=== PATIENT | female | born 1950 | race Caucasian/White ===

== ENCOUNTER → 2016-07-23 | Outpatient (CLI) | payer MEDICARE, OTHER ==
--- NOTE | 2016-07-27 15:24 | CR ---
EXAM DATE: 07/23/16 PATIENT'S AGE: 66 Patient: CLARICE ISAACS Facility: [facility] Site . Site : 1950 Study: XRay-Chest [id number]/2/2017 5:21:57 PM Ordering Physician: Yanique Phillips Final Report: HISTORY: Acute bronchitis. Comparison: 07/14/2016. Technique: Chest, 2 views. Findings: Right IJ Port-A-Cath, with its tip in the proximal SVC. Median sternotomy changes. No change when compared with previous. Heart size and pulmonary vasculature stable. The lungs are clear. There is no pneumothorax. Lateral/ posterior costophrenic sulci are sharp. Impression: There is no acute airspace disease. Dictated by Enrique Bernard MD @ Jul 26 2016 8:01PM Signed by: Enrique Bernard MD @07/26/2016 8:03:05 PM (Electronic Signature) Report Signed by Proxy and Original Signed Document filed in the Medical Record. MTDD
== END ==
LOC: MW.CHIM 16:16
PROVIDERS: ATTEND Internal Medicine
DX: J20.9 Acute bronchitis, unspecified (principal); R68.89 Other general symptoms and signs
CPT/HCPCS: 36415; 71020; 80053; 85025; 87081; 87804; 87880; G0463

== ENCOUNTER → 2016-09-09 | Outpatient (CLI) | payer MEDICARE, OTHER ==
--- NOTE | 2016-09-09 16:18 | CR ---
EXAMINATION: Two-view chest (PA and Lateral views). HISTORY: Acute sinusitis. FINDINGS: The trachea is midline. The cardiomediastinal silhouette is within normal limits. No pulmonary infil trates, effusions or pneumothorax. Median sternotomy wires are noted. There is a right-sided Infuse- a-Port with tip in good position. Coronary stent noted. Osseous structures appear osteopenic. Mild wedge deformity is noted within the upper thoracic spine and the second is noted near the thoracolumbar junction. IMPRESSION: No acute cardiopulmonary process.
--- NOTE | 2016-09-10 09:28 | CR ---
EXAMINATION: Sinuses HISTORY: Acute sinusitis COMPARISON: CT dated 05/31/2016 TECHNIQUE: Burden' view FINDINGS/IMPRESSION: The maxillary and frontal sinuses are grossly patent without air-fluid levels. The nasal septum is midline. No bony destruction.
== END ==
LOC: MW.CHIM 14:00
PROVIDERS: ATTEND Internal Medicine
DX: J01.90 Acute sinusitis, unspecified (principal); J20.9 Acute bronchitis, unspecified; E11.9 Type 2 diabetes mellitus without complications
CPT/HCPCS: 36415; 70210; 70210-26; 71020; 71020-26; 80053; 81001; 83540; 85025

== ENCOUNTER → 2016-09-11 | Outpatient (CLI) | payer MEDICARE, OTHER ==
--- NOTE | 2016-09-14 09:29 | CR ---
EXAM DATE: 09/11/16 PATIENT'S AGE: 66 Patient: CLARICE ISAACS Facility: [place], [place] Site . Site : 1950 Study: XRay Spine Cervical [id number]/21/2017 4:56:30 PM Ordering Physician: Yanique Phillips Final Report: CLINICAL INDICATION: Pain since fall June 09. Findings: There is slight narrowing of the C3-4 and C4-5 intervertebral disc spaces. There are small multilevel marginal osteophytes. The craniocervical and cervicothoracic junctions are normally aligned. No fracture or dislocation is identified. There is bilateral carotid calcification that is especially abundant on the left. There has been a previous sternotomy. There is a Port-A- Cath on the right. Impression: 1. Overall mild degenerative change. 2. Negative for fracture or dislocation. 3. Carotid calcification bilaterally that is prominent on the left. Dictated by Macho Villatoro MD @ Sep 13 2016 10:06AM (Electronic Signature) Report Signed by Proxy and Original Signed Document filed in the Medical Record. [facility]
== END ==
LOC: MW.CHIM 10:40
PROVIDERS: ATTEND Internal Medicine
DX: R10.9 Unspecified abdominal pain (principal); R68.89 Other general symptoms and signs; J32.9 Chronic sinusitis, unspecified; R51 Headache; F41.9 Anxiety disorder, unspecified; R55 Syncope and collapse
CPT/HCPCS: 36415; 72040; 72040-26; 82150; 99214

== ENCOUNTER → 2016-09-15 | Outpatient (CLI) | payer MEDICARE, OTHER | END | disposition home or self-care (01) | LOC: MW.CHIM 08:30 | PROVIDERS: ATTEND Internal Medicine | DX: R55 Syncope and collapse (principal) | CPT/HCPCS: 99214 ==

== ENCOUNTER → 2016-09-16 | Outpatient (CLI) | payer MEDICARE, OTHER ==
--- NOTE | 2016-09-16 16:18 | US ---
EXAM DATE: 09/16/16 PATIENT'S AGE: 66 Patient: CLARICE ISAACS Facility: [place], [place] Site . Site : 1950 Study: US Abdomen [id number]/26/2017 9:41:51 AM Ordering Physician: Yanique Phillips Final Report: INDICATION: Vomiting and abdominal pain TECHNIQUE: Ultrasound abdomen limited. Sonographic images of the right upper quadrant were obtained using rausch-scale and color Doppler images. COMPARISON: And 9 FINDINGS: Liver: Normal in size and echotexture. No masses. No intrahepatic biliary dilatation. Gallbladder: History of cholecystectomy. Common bile duct: 4.0 mm. Pancreas: Normal. Distal body and tail are not visualized. Right kidney: 9.8 cm. Normal echotexture and cortex. No masses, stones, or hydronephrosis. Vasculature: The visualized IMPRESSION: History of cholecystectomy. Sonographically normal right upper quadrant. Dictated by Abel Gann MD @ Sep 16 2016 10:11AM (Electronic Signature) Report Signed by Proxy and Original Signed Document filed in the Medical Record. PATRICK
== END ==
LOC: MW.US 09:10
PROVIDERS: ATTEND Internal Medicine
DX: R10.9 Unspecified abdominal pain (principal); R68.89 Other general symptoms and signs; Z90.49 Acquired absence of other specified parts of digestive tract
CPT/HCPCS: 76705; 76705-26

== ENCOUNTER 2016-09-23 06:58 | Emergency (ER) | payer MEDICARE, OTHER ==
[2016-09-23] MEDS ORDERED: Ondansetron 4 MG/2 ML SDV IVPUSH ONE (07:00)
[2016-09-23] MEDS ORDERED: Sodium Chloride 0.9% 1,000 ML IV ONE (07:00)
--- NOTE | 2016-09-23 07:20 | EDM.PDOC ---
ED HPI GI/ABDOMINAL - General Chief Complaint: Gastrointestinal Problem Stated Complaint: NAUSA AND VOMITING Time Seen by Provider: 09/23/16 07:10 Source of Information: Reports: Patient History Limitations: Reports: No limitations - History of Present Illness INITIAL COMMENTS - FREE TEXT/NARRATIVE: HISTORY AND PHYSICAL: History of present illness: [66-year-old female hypertension high cholesterol and he is coronary artery disease with 3 vessel CABG, vertigo migraines and depression, now presents to the emergency department complaining of nausea and vomiting times several days. She states that since hitting her head years ago she's had chronic intermittent nausea and vomiting as well as vertigo. No recent injury. The nature of this episode is typical per patient something she's been experiencing for years. Patient describes persistent vomiting over the last 3 days. Sometimes crampy abdominal pain but not currently. No bloody diarrhea or blood in vomit. Patient states she's been unable to keep down liquids or food.] She feels she's also having some symptoms of vertigo as her dizziness is worse when she moves her head patient describes she has been treated for vertigo previously and at different times she's been on meclizine Review of systems: As per history of present illness and below otherwise all systems reviewed and negative. Past medical history: As per history of present illness and as reviewed below otherwise noncontributory. Surgical history: As per history of present illness and as reviewed below otherwise noncontributory. Social history: No reported history of drug or alcohol abuse. Family history: As per history of present illness and as reviewed below otherwise noncontributory. Physical exam: Mildly anxious, morbidly obese, chronically weak appearing patient no acute distress and no diaphoresis on exam. Alert and communicative nonfocal neuro exam. Nontender abdomen and pelvis HEENT: Atraumatic, normocephalic, pupils reactive, negative for conjunctival pallor or scleral icterus, mucous membranes moist, throat clear, neck supple, nontender, trachea midline. Lungs: Clear to auscultation, breath sounds equal bilaterally, chest nontender. Heart: S1S2, regular, negative for clicks, rubs, or JVD. Abdomen: Soft, nondistended, nontender. Negative for masses or hepatosplenomegaly. Negative for costovertebral tenderness. Pelvis: Stable nontender. Genitourinary: Deferred. Rectal: Deferred. Extremities: Atraumatic, negative for cords or calf pain. Neurovascular unremarkable. Neuro: Awake, alert, oriented. Cranial nerves II through XII unremarkable. Cerebellum unremarkable. Motor and sensory unremarkable throughout. Exam nonfocal. Diagnostics: [EKG with normal sinus rhythm at 87, normal axis] inferior Q waves with repolarization abnormality no STEMI, no sig change prior study Chest x-ray with right-sided port chronic changes no acute disease interpreted by me Therapeutics: [Zofran IV fluids and meclizine administered. Will give dose of IV Ativan to assist with obvious contributory anxiety component] Impression: [] Plan: [Antiemetic,anxiolytic, and IV fluids initiated. Full workup pending. Vital signs stable] Or treatment patient feels dramatically improved. Vital signs stable and unremarkable. She remains nonfocal neurologically. Her nausea has resolved and dizziness improved. Will prescribe Zofran and meclizine as patient had previously and No further workup or treatment indicated. Patient agrees with outpatient followup and strict return precautions given Definitive disposition and diagnosis as appropriate pending reevaluation and review of above. - Related Data Allergies/ADRs: Allergies Allergy/AdvReac Type Severity Reaction Status Date / Time Penicillins Allergy Severe Cannot Verified 09/23/16 07:05 Remember Home Meds: Home Meds Aspirin 81 mg PO BRK 04/02/15 [History] Carvedilol [Coreg] 3.25 mg PO BID 04/02/15 [History] Furosemide [Lasix] 40 mg PO DAILY 04/02/15 [History] Gemfibrozil [Lopid] 600 mg PO BIDAC 04/02/15 [History] Nitroglycerin [Nitrostat] 1 tab PO ASDIRECTED PRN 04/02/15 [History] Ranolazine [Ranexa] 500 mg PO BID 04/02/15 [History] atorvaSTATin [Lipitor] 80 mg PO BEDTIME 04/02/15 [History] Nortriptyline 25 mg PO BEDTIME 04/28/15 [History] Insulin Glarg,Human.Rec.Analog [Lantus Solostar] 55 units SUBCUT BEDTIME [History] PARoxetine [Paxil] 20 mg PO DAILY 05/31/16 [History] Glimepiride [Amaryl] 2 mg PO DAILY 09/23/16 [History] Liraglutide [Victoza] 1.2 mg SQ BEDTIME 09/23/16 [History] Meclizine [Antivert] 25 mg PO Q6H PRN #24 tablet 09/23/16 [Rx] Ondansetron [Zofran ODT] 4 mg SL Q4H PRN #16 tab.dis 09/23/16 [Rx] Past Medical History Other Cardiovascular History: 'partial heart' Oncologic (Cancer) History: Reports: Lymphoma - Infectious Disease History Infectious Disease History: Reports: Chicken pox, Measles, Mumps - Past Surgical History Other Cardiovascular Surgeries/Procedures: 3 bypasses, 10 stents Social & Family History - Family History Family Medical History: Noncontributory - Tobacco Use Smoking Status *Q: Never Smoker Second Hand Smoke Exposure: No - Caffeine Use Caffeine Use: Reports: None - Recreational Drug Use Recreational Drug Use: No ED ROS GENERAL - Review of Systems Review Of Systems: See Below (Per history of present illness) ED EXAM, GI/ABD - Physical Exam Exam: See Below (Per history of present illness) Course - Vital Signs Last Recorded V/S: Last Vital Signs Temp 36.4 C 09/23/16 09:05 Pulse 94 09/23/16 10:15 Resp 16 09/23/16 10:15 BP 126/63 09/23/16 10:15 Pulse Ox 95 09/23/16 10:15 - Orders/Labs/Meds Orders: Active Orders 24 hr Category Date Time Status EKG Documentation Completion [RC] STAT Care 09/23/16 07:07 Active Chest 1V Frontal [CR] Stat Exams 09/23/16 07:12 Taken Labs: Laboratory Tests 09/23/16 09/23/16 09/23/16 Range/Units 07:14 07:14 07:14 WBC 7.56 (4.0-11.0) K/uL RBC 4.87 (4.30-5.90) M/uL Hgb 15.1 (12.0-16.0) g/dL Hct 42.4 (36.0-46.0) % MCV 87.1 (80.0-98.0) fL MCH 31.0 (27.0-32.0) pg MCHC 35.6 (31.0-37.0) g/dL RDW Std Deviation 45.4 (28.0-62.0) fl RDW Coeff of Aranza 14 (11.0-15.0) % Plt Count 256 (150-400) K/uL MPV 10.30 (7.40-12.00) fL Neut % (Auto) 59.8 (48.0-80.0) % Lymph % (Auto) 30.2 (16.0-40.0) % Castro % (Auto) 8.5 (0.0-15.0) % Eos % (Auto) 0.7 (0.0-7.0) % Baso % (Auto) 0.8 (0.0-1.5) % Neut # (Auto) 4.5 (1.4-5.7) K/uL Lymph # (Auto) 2.3 (0.6-2.4) K/uL Castro # (Auto) 0.6 (0.0-0.8) K/uL Eos # (Auto) 0.1 (0.0-0.7) K/uL Baso # (Auto) 0.1 (0.0-0.1) K/uL Nucleated RBC % 0.0 /100WBC Nucleated RBCs # 0 K/uL Sodium 139 (136-146) mmol/L Potassium 3.9 (3.5-5.1) mmol/L Chloride 105 (98-110) mmol/L Carbon Dioxide 19 L (21-31) mmol/L BUN 15 (6.0-23.0) mg/dL Creatinine 0.9 (0.6-1.5) mg/dL Est Cr Clr Drug Dosing 61.41 mL/min Estimated GFR (MDRD) > 60.0 ml/min Glucose 126 H (60-110) mg/dL Calcium 9.6 (8.8-10.8) mg/dL Total Bilirubin 0.9 (0.1-1.5) mg/dL AST 18 (5-40) IU/L ALT 12 (8-54) IU/L Alkaline Phosphatase 99 (40-150) Troponin I < 0.10 (0.0-0.29) NG/ML Total Protein 6.5 (6.0-8.0) g/dL Albumin 3.4 (3.4-4.8) g/dL Globulin 3.1 (2.0-3.5) g/dL Albumin/Globulin Ratio 1.1 L (1.3-2.8) Lipase (7-80) U/L Urine Color Urine Appearance Urine pH (5.0-8.0) Ur Specific [place] (1.001-1.035) Urine Protein (NEGATIVE) mg/dL Urine Glucose (UA) (NEGATIVE) mg/dL Urine Ketones (NEGATIVE) mg/dL Urine Occult Blood (NEGATIVE) Urine Nitrite (NEGATIVE) Urine Bilirubin (NEGATIVE) Urine Urobilinogen (<2.0) EU/dL Ur Leukocyte Esterase (NEGATIVE) Urine RBC (0-2/HPF) Urine WBC (0-5/HPF) Ur Epithelial Cells (NONE-FEW) Amorphous Sediment (NEGATIVE) Urine Bacteria (NEGATIVE) 09/23/16 09/23/16 Range/Units 07:14 09:07 WBC (4.0-11.0) K/uL RBC (4.30-5.90) M/uL Hgb (12.0-16.0) g/dL Hct (36.0-46.0) % MCV (80.0-98.0) fL MCH (27.0-32.0) pg MCHC (31.0-37.0) g/dL RDW Std Deviation (28.0-62.0) fl RDW Coeff of Aranza (11.0-15.0) % Plt Count (150-400) K/uL MPV (7.40-12.00) fL Neut % (Auto) (48.0-80.0) % Lymph % (Auto) (16.0-40.0) % Castro % (Auto) (0.0-15.0) % Eos % (Auto) (0.0-7.0) % Baso % (Auto) (0.0-1.5) % Neut # (Auto) (1.4-5.7) K/uL Lymph # (Auto) (0.6-2.4) K/uL Castro # (Auto) (0.0-0.8) K/uL Eos # (Auto) (0.0-0.7) K/uL Baso # (Auto) (0.0-0.1) K/uL Nucleated RBC % /100WBC Nucleated RBCs # K/uL Sodium (136-146) mmol/L Potassium (3.5-5.1) mmol/L Chloride (98-110) mmol/L Carbon Dioxide (21-31) mmol/L BUN (6.0-23.0) mg/dL Creatinine (0.6-1.5) mg/dL Est Cr Clr Drug Dosing mL/min Estimated GFR (MDRD) ml/min Glucose (60-110) mg/dL Calcium (8.8-10.8) mg/dL Total Bilirubin (0.1-1.5) mg/dL AST (5-40) IU/L ALT (8-54) IU/L Alkaline Phosphatase (40-150) Troponin I (0.0-0.29) NG/ML Total Protein (6.0-8.0) g/dL Albumin (3.4-4.8) g/dL Globulin (2.0-3.5) g/dL Albumin/Globulin Ratio (1.3-2.8) Lipase 26 (7-80) U/L Urine Color YELLOW Urine Appearance SLT CLOUDY Urine pH 6.5 (5.0-8.0) Ur Specific [place] 1.020 (1.001-1.035) Urine Protein NEGATIVE (NEGATIVE) mg/dL Urine Glucose (UA) NEGATIVE (NEGATIVE) mg/dL Urine Ketones NEGATIVE (NEGATIVE) mg/dL Urine Occult Blood NEGATIVE (NEGATIVE) Urine Nitrite NEGATIVE (NEGATIVE) Urine Bilirubin NEGATIVE (NEGATIVE) Urine Urobilinogen 0.2 (<2.0) EU/dL Ur Leukocyte Esterase MODERATE (NEGATIVE) Urine RBC 0-1 (0-2/HPF) Urine WBC 18-25 (0-5/HPF) Ur Epithelial Cells RARE (NONE-FEW) Amorphous Sediment FEW (NEGATIVE) Urine Bacteria FEW (NEGATIVE) Meds: Medications Discontinued Medications Generic Name Dose Route Start Last Admin Trade Name Freq PRN Reason Stop Dose Admin Sodium Chloride 1,000 mls @ 999 mls/hr 09/23/16 07:00 09/23/16 07:16 Normal Saline IV 09/23/16 08:00 999 mls/hr STAT ONE Administration Lorazepam 0.5 mg 09/23/16 08:44 09/23/16 08:57 Ativan IVPUSH 09/23/16 08:45 0.5 mg ONETIME ONE Administration Meclizine HCl 25 mg 09/23/16 07:21 09/23/16 07:34 Antivert PO 09/23/16 07:22 25 mg ONETIME ONE Administration Ondansetron HCl 8 mg 09/23/16 07:00 09/23/16 07:15 Zofran IVPUSH 09/23/16 07:01 8 mg ONETIME ONE Administration Departure - Departure Time of Disposition: 10:56 Disposition: Home, Self-Care 01 Condition: good Clinical Impression: Nausea and vomiting, Vertigo Instructions: Nausea and Vomiting, Adult, [id number] Referrals: PCP,None [Primary Care Provider] - Forms: ED Department Discharge Additional Instructions: A full workup today showed no significant abnormalities or new cause for your chronic recurrent vomiting and symptoms of vertigo. It appears that your anxiety today contributed to your symptoms so followup with your Dr. to discuss the possibility of outpatient prescription for anxiety medication as needed. Rest and drink plenty of fluids. Use meclizine as needed for dizziness and vertigo symptoms. Use Zofran as needed for nausea and vomiting and followup with your Dr. tomorrow. Return immediately for new severe or worsening symptoms - My Orders Last 24 Hours: My Active Orders 09/23/16 07:07 EKG Documentation Completion [RC] STAT 09/23/16 07:12 Chest 1V Frontal [CR] Stat - Assessment/Plan Last 24 Hours: My Active Orders 09/23/16 07:07 EKG Documentation Completion [RC] STAT 09/23/16 07:12 Chest 1V Frontal [CR] Stat
[2016-09-23] MEDS ORDERED: Meclizine 25 MG Tab PO ONE (07:21)
[2016-09-23 07:52] LABS: CHLORIDE,CL 105 mmol/L (98-110); SODIUM,NA 139 mmol/L (136-146)
[2016-09-23] MEDS ORDERED: LORazepam 2 MG/ML MDV IVPUSH ONE (08:44)
--- NOTE | 2016-09-23 11:12 | CR ---
EXAM DATE: 09/23/16 PATIENT'S AGE: 66 Patient: CLARICE ISAACS Facility: [place], [place] Site . Site : 1950 Study: XRay Chest [id number]/3/2017 7:38:45 AM Ordering Physician: Doctor Patton Final Report: INDICATION: Pain. Nausea and vomiting. Shortness of breath. TECHNIQUE: AP portable upright chest. COMPARISON: Two-view chest September 09, 2016. FINDINGS: Sternotomy. Right-sided Port-A-Cath with its lead tip in superior vena cava. Clear lungs. Overall heart size is within normal limits. Degenerative change of the shoulders. IMPRESSION: No acute cardiopulmonary process identified. No significant change other than technique. Dictated by Kam Lowe MD @ 09/23/2016 7:44:36 AM Dictated by: Kam Lowe MD @ 09/23/2016 07:44:44 (Electronic Signature) Report Signed by Proxy. PATRICK
[2016-09-23 11:22] VITALS: BP 103/55
== END 2016-09-23 11:34 | disposition home or self-care (01) ==
LOC: MW.ED 06:58
DX: R11.2 Nausea with vomiting, unspecified (principal); R42 Dizziness and giddiness; Z85.72 Personal history of non-Hodgkin lymphomas; Z95.1 Presence of aortocoronary bypass graft; Z95.5 Presence of coronary angioplasty implant and graft; Z79.4 Long term (current) use of insulin; Z79.82 Long term (current) use of aspirin; Z79.899 Other long term (current) drug therapy; Z88.0 Allergy status to penicillin
CPT/HCPCS: 36415; 71010; 80053; 81001; 83690; 84484; 85025; 93005; 96361; 96374; 96375; 99285; A9270; J2060; J2405; J7040; 99284

== ENCOUNTER → 2016-09-29 | Outpatient (CLI) | payer MEDICARE, OTHER, BC | LOC: MW.CHNEURO 08:00 | PROVIDERS: ATTEND Psychiatry & Neurology Neuromuscular Medicine | DX: R51 Headache (principal); F07.81 Postconcussional syndrome; R42 Dizziness and giddiness | CPT/HCPCS: 99214 ==

== ENCOUNTER → 2016-10-08 | Outpatient (CLI) | payer MEDICARE, OTHER ==
--- NOTE | 2016-10-08 08:43 | PCM.PRNOTE ---
- Free Text/Narrative Note: Lexiscan Indication CP Patient was supervised today during infusion portion of the stress test. The patient received Regadenoson 0.4 mg IV and nuclear agent using standard protocol. Sestamibi Tm99 25 Mci was gievn afterwards Baseline blood pressure is 118/79 with a heart rate 93 EKG sinus rhythm with significant Q wave II III aVF, ST abnormalities V4-V6 Vital signs at injection: Peak blood pressure 98/60 with a heart rate of 96 Vital signs at 4 minutes post injection: Peak blood pressure 111/67 with a heart rate of 99 EKG sinus rhythm without further ST changes Patient complains of chest pain spontaneously resolved Adverse effects from Edie scan none Test done due to end of protocol Impression 1. electrocardiographically nondiagnostic for ischemia due to chemical protocol 2. nuclear imaging pending
--- NOTE | 2016-10-08 13:31 | NM ---
EXAMINATION: Nuclear medicine myocardial perfusion HISTORY: Atherosclerotic disease. PROCEDURE: Following intravenous administration of 0.4 mg of Lexiscan and 26.9 mCi of technetium 99m sestamib i, stress SPECT images including gating imaging was performed. FINDINGS: Stress myocardial SPECT images demonstrates heterogeneous uptake within the left ventricular myocard ium. This is most prominent along the inferior wall with a moderate sized area of moderately decreas ed perfusion from the midportion to base. Review of gated images demonstrates generalized hypokinesis with akinesis along the inferior wall. T he left ventricular ejection fraction is 30 %. The left ventricular chamber size is normal. IMPRESSION: 1. Heterogeneous uptake within the left ventricular myocardium. Correlate with rest imaging. 2. Ejection fraction of 30 %.
== END ==
LOC: MW.NM 07:45
PROVIDERS: ATTEND Internal Medicine
DX: I25.10 Atherosclerotic heart disease of native coronary artery without angina pectoris (principal); R07.9 Chest pain, unspecified
CPT/HCPCS: 78451; 93017; A9500; J2785

== ENCOUNTER → 2016-10-13 | Outpatient (CLI) | payer MEDICARE, OTHER ==
--- NOTE | 2016-10-13 13:24 | NM ---
EXAMINATION: Rest myocardial perfusion study HISTORY: Heart disease COMPARISON: Stressed imaging dated 10/08/2016 TECHNIQUE: Additional images were obtained at rest following the administration of 26.8 mCi of techn etium 99m labeled sestamibi. FINDINGS: The uptake within the left ventricular myocardium is again heterogeneous at rest. Overall the perfusion pattern appears similar with persistent defects along the inferior and less so the ant erior randall. There is generalized hypokinesis, however wall motion appears slightly improved relativ e to the stress imaging. The TID is normal. Ejection fraction at rest is 39%. IMPRESSION: 1. Heterogeneous myocardial uptake can noted, no definite evidence of ischemia. A subtle area would be difficult to rule out. 2. Generalized hypokinesis most notable along the inferior wall with an ejection fraction of 39%.
== END ==
LOC: MW.NM 08:10
PROVIDERS: ATTEND Internal Medicine
DX: I25.10 Atherosclerotic heart disease of native coronary artery without angina pectoris (principal)
CPT/HCPCS: 78451; A9500

== ENCOUNTER → 2016-10-14 | Outpatient (CLI) | payer MEDICARE, OTHER | LOC: MW.CHIM 08:00 | PROVIDERS: ATTEND Internal Medicine | DX: I25.10 Atherosclerotic heart disease of native coronary artery without angina pectoris (principal); E11.9 Type 2 diabetes mellitus without complications; E78.5 Hyperlipidemia, unspecified; I10 Essential (primary) hypertension | CPT/HCPCS: 99215 ==

== ENCOUNTER 2017-01-01 09:26 | Emergency (ER) | payer MEDICARE, OTHER ==
[2017-01-01] MEDS ORDERED: Sodium Chloride 0.9% 10 ML Syringe FLUSH PRN (09:31)
[2017-01-01] MEDS ORDERED: Sodium Chloride 0.9% 2.5 ML Syringe FLUSH PRN (09:31)
--- NOTE | 2017-01-01 09:43 | EDM.PDOC ---
ED HPI GENERAL MEDICAL PROBLEM - General Chief Complaint: Neuro Symptoms/Deficits Stated Complaint: PT DOESN'T FEEL GOOD Time Seen by Provider: 01/01/17 09:34 Source of Information: Reports: Patient History Limitations: Reports: No Limitations - History of Present Illness INITIAL COMMENTS - FREE TEXT/NARRATIVE: History of present illness: []Patient was brought to the ER from rehabilitation staff where she was feeling unwell. Patient had a stroke a month ago with right-sided upper extremity weakness and was treated in [place] after finding a lesion on her brainstem. They were not able to do a biopsy and has further workup pending. Patient did not feel well last night states she did not sleep last night. She has no specific complaints and denies any changes in her headaches since her stroke, visual changes, numbness, tingling or new weakness. Patient states she has been having some urinary discomfort past few days. She denies any fevers, chills, nausea, vomiting or abdominal pain. Review of systems: As per history of present illness and below otherwise all systems reviewed and negative. Past medical history: As per history of present illness and as reviewed below otherwise noncontributory. Surgical history: As per history of present illness and as reviewed below otherwise noncontributory. Social history: No reported history of drug or alcohol abuse. Family history: As per history of present illness and as reviewed below otherwise noncontributory. Physical exam: General: Well developed, well nourished in NAD HEENT: Atraumatic, normocephalic, pupils reactive, negative for conjunctival pallor or scleral icterus, mucous membranes moist, throat clear, neck supple, nontender, trachea midline. Lungs: Clear to auscultation, breath sounds equal bilaterally, chest nontender. Heart: S1S2, regular, negative for clicks, rubs, or JVD. Abdomen: Soft, nondistended, nontender. Negative for masses or hepatosplenomegaly. Negative for costovertebral tenderness. Pelvis: Stable nontender. Genitourinary: Deferred. Rectal: Deferred. Extremities: Atraumatic, negative for cords or calf pain. Neurovascular unremarkable. Neuro: Awake, alert, difficulty finding her words. Cranial nerves II through XII unremarkable. Cerebellum unremarkable. Motor weakness throughout nonfocal, and sensory unremarkable throughout. Exam nonfocal. Diagnostics: []Labs, UA and CT showing unresolved UTI otherwise normal Therapeutics: []Fluids and vancomycin given Impression: []Generalized weakness, UTI Plan: []Admit to hospitalist, however after hospitalist evaluate patient and consulted neurology they preferred patient be transferred due to her marked declining mental status. Definitive disposition and diagnosis as appropriate pending reevaluation and review of above. - Related Data Allergies Allergy/AdvReac Type Severity Reaction Status Date / Time Penicillins Allergy Severe Cannot Verified 01/01/17 09:39 Remember Home Meds: Home Meds Aspirin 81 mg PO BRK 04/02/15 [History] Gemfibrozil [Lopid] 600 mg PO BIDAC 04/02/15 [History] atorvaSTATin [Lipitor] 80 mg PO BEDTIME 04/02/15 [History] Insulin Glarg,Human.Rec.Analog [Lantus Solostar] 47 units SUBCUT DAILY 05/31/16 [History] Liraglutide [Victoza] 1.2 mg SQ BEDTIME 09/23/16 [History] Acetaminophen [Tylenol Extra Strength] 500 mg PO ASDIRECTED 01/01/17 [History] Desvenlafaxine Succinate [Pristiq] 25 mg PO DAILY 01/01/17 [History] Melatonin 01/01/17 [History] Past Medical History Cardiovascular History: Reports: Angina, Hypertension Other Cardiovascular History: 'partial heart' Respiratory History: Reports: Sleep Apnea [employer]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[employer]OR History: Reports: Musculoskeletal History: Reports: Fracture Neurological History: Reports: Concussion, CVA, Headaches, Chronic, Head Trauma , Vertigo, Other (See Below) Other Neuro History: brainstem and spinal cord lesions Psychiatric History: Reports: Anxiety, Depression Endocrine/Metabolic History: Reports: Diabetes, Type II Hematologic History: Reports: Other (See Below) Other Hematologic History: Easy bruising, not on anticoagulant therapy Oncologic (Cancer) History: Reports: Lymphoma - Infectious Disease History Infectious Disease History: Reports: Chicken Pox, Measles, Mumps - Past Surgical History HEENT Surgical History: Reports: Adenoidectomy, Cataract Surgery, Tonsillectomy , Other (See Below) Other HEENT Surgeries/Procedures: Sinus surgery, blepheroplasty Other Cardiovascular Surgeries/Procedures: 3 bypasses, 10 stents Musculoskeletal Surgical History: Reports: Carpal Tunnel Social & Family History - Family History Family Medical History: Noncontributory - Tobacco Use Smoking Status *Q: Never Smoker Second Hand Smoke Exposure: No - Caffeine Use Caffeine Use: Reports: None - Recreational Drug Use Recreational Drug Use: No ED ROS GENERAL - Review of Systems Review Of Systems: See Below (See history of present illness) ED EXAM, DIZZINESS - Physical Exam Exam: See Below (See history of present illness) Course - Vital Signs Last Recorded V/S: Last Vital Signs Temp 36.1 C 01/01/17 09:34 Pulse 83 01/01/17 09:34 Resp 18 01/01/17 13:19 BP 151/91 H 01/01/17 13:19 Pulse Ox 97 01/01/17 13:19 - Orders/Labs/Meds Orders: Active Orders 24 hr Category Date Time Status EKG Documentation Completion [RC] STAT Care 01/01/17 09:32 Active Sodium Chloride 0.9% [Normal Saline] 1,000 ml Med 01/01/17 13:15 Active IV ASDIRECTED Sodium Chloride 0.9% [Saline Flush] Med 01/01/17 09:31 Active 10 ml FLUSH ASDIRECTED PRN Sodium Chloride 0.9% [Saline Flush] Med 01/01/17 09:31 Active 2.5 ml FLUSH ASDIRECTED PRN Saline Lock Insert [OM.PC] Stat Oth 01/01/17 09:31 Ordered Medication Orders Sodium Chloride (Normal Saline) 1,000 mls @ 125 mls/hr IV ASDIRECTED CHANTE Last Admin: 01/01/17 13:25 Dose: 125 mls/hr Sodium Chloride (Saline Flush) 10 ml FLUSH ASDIRECTED PRN PRN Reason: Keep Vein Open Sodium Chloride (Saline Flush) 2.5 ml FLUSH ASDIRECTED PRN PRN Reason: Keep Vein Open Labs: Laboratory Tests 01/01/17 01/01/17 01/01/17 Range/Units 10:30 10:30 10:30 WBC 4.14 (4.0-11.0) K/uL RBC 4.14 L (4.30-5.90) M/uL Hgb 12.6 (12.0-16.0) g/dL Hct 37.1 (36.0-46.0) % MCV 89.6 (80.0-98.0) fL MCH 30.4 (27.0-32.0) pg MCHC 34.0 (31.0-37.0) g/dL RDW Std Deviation 48.6 (28.0-62.0) fl RDW Coeff of [place] 15 (11.0-15.0) % Plt Count 222 (150-400) K/uL MPV 10.00 (7.40-12.00) fL Neut % (Auto) 45.4 L (48.0-80.0) % Lymph % (Auto) 38.2 (16.0-40.0) % [place] % (Auto) 13.5 (0.0-15.0) % Eos % (Auto) 2.2 (0.0-7.0) % Baso % (Auto) 0.7 (0.0-1.5) % Neut # (Auto) 1.9 (1.4-5.7) K/uL Lymph # (Auto) 1.6 (0.6-2.4) K/uL [place] # (Auto) 0.6 (0.0-0.8) K/uL Eos # (Auto) 0.1 (0.0-0.7) K/uL Baso # (Auto) 0.0 (0.0-0.1) K/uL Nucleated RBC % 0.0 /100WBC Nucleated RBCs # 0 K/uL Sodium 141 (136-146) mmol/L Potassium 3.8 (3.5-5.1) mmol/L Chloride 106 (98-110) mmol/L Carbon Dioxide 25 (21-31) mmol/L BUN 15 (6.0-23.0) mg/dL Creatinine 1.0 (0.6-1.5) mg/dL Est Cr Clr Drug Dosing 55.12 mL/min Estimated GFR (MDRD) 55.8 ml/min Glucose 176 H (60-110) mg/dL POC Glucose (60-110) mg/dL Calcium 8.5 L (8.8-10.8) mg/dL Total Bilirubin 0.8 (0.1-1.5) mg/dL AST 13 (5-40) IU/L ALT 12 (8-54) IU/L Alkaline Phosphatase 97 (40-150) Troponin I < 0.10 (0.0-0.29) NG/ML Total Protein 5.4 L (6.0-8.0) g/dL Albumin 2.9 L (3.4-4.8) g/dL Globulin 2.5 (2.0-3.5) g/dL Albumin/Globulin Ratio 1.2 L (1.3-2.8) Urine Color Urine Appearance Urine pH (5.0-8.0) Ur Specific [place] (1.001-1.035) Urine Protein (NEGATIVE) mg/dL Urine Glucose (UA) (NEGATIVE) mg/dL Urine Ketones (NEGATIVE) mg/dL Urine Occult Blood (NEGATIVE) Urine Nitrite (NEGATIVE) Urine Bilirubin (NEGATIVE) Urine Urobilinogen (<2.0) EU/dL Ur Leukocyte Esterase (NEGATIVE) Urine RBC (0-2/HPF) Urine WBC (0-5/HPF) Ur Epithelial Cells (NONE-FEW) Urine Bacteria (NEGATIVE) 01/01/17 01/01/17 Range/Units 11:30 13:55 WBC (4.0-11.0) K/uL RBC (4.30-5.90) M/uL Hgb (12.0-16.0) g/dL Hct (36.0-46.0) % MCV (80.0-98.0) fL MCH (27.0-32.0) pg MCHC (31.0-37.0) g/dL RDW Std Deviation (28.0-62.0) fl RDW Coeff of [place] (11.0-15.0) % Plt Count (150-400) K/uL MPV (7.40-12.00) fL Neut % (Auto) (48.0-80.0) % Lymph % (Auto) (16.0-40.0) % [place] % (Auto) (0.0-15.0) % Eos % (Auto) (0.0-7.0) % Baso % (Auto) (0.0-1.5) % Neut # (Auto) (1.4-5.7) K/uL Lymph # (Auto) (0.6-2.4) K/uL [place] # (Auto) (0.0-0.8) K/uL Eos # (Auto) (0.0-0.7) K/uL Baso # (Auto) (0.0-0.1) K/uL Nucleated RBC % /100WBC Nucleated RBCs # K/uL Sodium (136-146) mmol/L Potassium (3.5-5.1) mmol/L Chloride (98-110) mmol/L Carbon Dioxide (21-31) mmol/L BUN (6.0-23.0) mg/dL Creatinine (0.6-1.5) mg/dL Est Cr Clr Drug Dosing mL/min Estimated GFR (MDRD) ml/min Glucose (60-110) mg/dL POC Glucose 100 (60-110) mg/dL Calcium (8.8-10.8) mg/dL Total Bilirubin (0.1-1.5) mg/dL AST (5-40) IU/L ALT (8-54) IU/L Alkaline Phosphatase (40-150) Troponin I (0.0-0.29) NG/ML Total Protein (6.0-8.0) g/dL Albumin (3.4-4.8) g/dL Globulin (2.0-3.5) g/dL Albumin/Globulin Ratio (1.3-2.8) Urine Color YELLOW Urine Appearance CLEAR Urine pH 5.5 (5.0-8.0) Ur Specific [place] 1.015 (1.001-1.035) Urine Protein NEGATIVE (NEGATIVE) mg/dL Urine Glucose (UA) NEGATIVE (NEGATIVE) mg/dL Urine Ketones NEGATIVE (NEGATIVE) mg/dL Urine Occult Blood NEGATIVE (NEGATIVE) Urine Nitrite NEGATIVE (NEGATIVE) Urine Bilirubin NEGATIVE (NEGATIVE) Urine Urobilinogen 0.2 (<2.0) EU/dL Ur Leukocyte Esterase SMALL (NEGATIVE) Urine RBC 0-2 (0-2/HPF) Urine WBC 10-15 (0-5/HPF) Ur Epithelial Cells FEW (NONE-FEW) Urine Bacteria FEW (NEGATIVE) Meds: Medications Generic Name Dose Route Start Last Admin Trade Name Freq PRN Reason Stop Dose Admin Sodium Chloride 1,000 mls @ 125 mls/hr 01/01/17 13:15 01/01/17 13:25 Normal Saline IV 125 mls/hr ASDIRECTED CHANTE Administration Sodium Chloride 10 ml 01/01/17 09:31 Saline Flush FLUSH ASDIRECTED PRN Keep Vein Open Sodium Chloride 2.5 ml 01/01/17 09:31 Saline Flush FLUSH ASDIRECTED PRN Keep Vein Open Discontinued Medications Generic Name Dose Route Start Last Admin Trade Name Freq PRN Reason Stop Dose Admin Aspirin 324 mg 01/01/17 13:23 01/01/17 13:36 Aspirin PO 01/01/17 13:24 324 mg ONETIME ONE Administration Sodium Chloride 500 mls @ 999 mls/hr 01/01/17 10:04 01/01/17 10:30 Normal Saline IV 01/01/17 10:34 999 mls/hr .Bolus ONE Administration Vancomycin HCl 1 gm/ Sodium 250 mls @ 250 mls/hr 01/01/17 12:13 01/01/17 13: 32 Chloride IV 01/01/17 13:12 250 mls/hr ONETIME ONE Administration Lorazepam 0.5 mg 01/01/17 13:43 01/01/17 13:53 Ativan IVPUSH 01/01/17 13:44 0.5 mg ONETIME ONE Administration Departure - Departure Time of Disposition: 14:21 Disposition: DC/Tfer to Acute Hospital 02 Condition: Good, Fair Clinical Impression: Change in mental status Qualifiers: Altered mental status type: unspecified Qualified Code(s): R41.82 - Altered mental status, unspecified - Discharge Information Referrals: PCP,None [Primary Care Provider] - Forms: ED Department Discharge - My Orders Last 24 Hours: My Active Orders 01/01/17 09:31 Sodium Chloride 0.9% [Saline Flush] 10 ml FLUSH ASDIRECTED PRN Sodium Chloride 0.9% [Saline Flush] 2.5 ml FLUSH ASDIRECTED PRN Saline Lock Insert [OM.PC] Stat 01/01/17 09:32 EKG Documentation Completion [RC] STAT 01/01/17 13:15 Sodium Chloride 0.9% [Normal Saline] 1,000 ml IV ASDIRECTED - Assessment/Plan Last 24 Hours: My Active Orders 01/01/17 09:31 Sodium Chloride 0.9% [Saline Flush] 10 ml FLUSH ASDIRECTED PRN Sodium Chloride 0.9% [Saline Flush] 2.5 ml FLUSH ASDIRECTED PRN Saline Lock Insert [OM.PC] Stat 01/01/17 09:32 EKG Documentation Completion [RC] STAT 01/01/17 13:15 Sodium Chloride 0.9% [Normal Saline] 1,000 ml IV ASDIRECTED
[2017-01-01] MEDS ORDERED: Sodium Chloride 0.9% 500 ML IV ONE (10:04)
--- NOTE | 2017-01-01 11:20 | CT ---
CT brain scan Multiple computed tomographic sections of the brain demonstrate no acute mass edema or hemorrhage. T here is dense vertebral artery calcification. Impression: No evidence of acute intracranial pathology. Vertebrobasilar calcific disease
[2017-01-01] MEDS ORDERED: Sodium Chloride 0.9% 1,000 ML IV SCH (13:15)
[2017-01-01] MEDS ORDERED: Aspirin 81 MG Tab.Chew PO ONE (13:23)
[2017-01-01] MEDS ORDERED: LORazepam 2 MG/ML MDV IVPUSH ONE (13:43)
[2017-01-02 19:50] VITALS: BP 160/95
== END 2017-01-01 13:54 ==
LOC: MW.ED 09:26
DX: N39.0 Urinary tract infection, site not specified (principal); R41.82 Altered mental status, unspecified; I10 Essential (primary) hypertension; F41.9 Anxiety disorder, unspecified; F32.9 Major depressive disorder, single episode, unspecified; E11.9 Type 2 diabetes mellitus without complications; Z98.890 Other specified postprocedural states; Z98.49 Cataract extraction status, unspecified eye; Z88.0 Allergy status to penicillin; Z79.82 Long term (current) use of aspirin; Z79.899 Other long term (current) drug therapy; Z79.4 Long term (current) use of insulin; Z86.73 Personal history of transient ischemic attack (TIA), and cerebral infarction without residual deficits
CPT/HCPCS: 36415; 70450; 80053; 81001; 82962; 84484; 85025; 93005; 96361; 96365; 96375; 99285; A9270; J2060; J3370; J7040; J7050; 99284

== ENCOUNTER 2017-06-18 12:04 | Inpatient (IN) | payer MEDICARE, OTHER ==
--- NOTE | 2017-06-18 12:13 | EDM.PDOC ---
ED HPI GENERAL MEDICAL PROBLEM - General Stated Complaint: POSSIBLE SEPSIS Time Seen by Provider: 06/18/17 12:12 Source of Information: Reports: Patient - History of Present Illness INITIAL COMMENTS - FREE TEXT/NARRATIVE: HISTORY AND PHYSICAL: History of present illness: [ Patient presents from [facility] Dr. marie, patient was seen by him yesterday with lab performed she was found to have a glucose of 700 and slightly hypotensive yesterday, she was found to have a urinary tract infection and placed on Cipro. 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 Past medical history: As per history of present illness and as reviewed below otherwise noncontributory. Surgical history: As per history of present illness and as reviewed below otherwise noncontributory. Social history: No reported history of drug or alcohol abuse. Family history: As per history of present illness and as reviewed below otherwise noncontributory. Physical exam: HEENT: Atraumatic, normocephalic, pupils reactive, negative for conjunctival pallor or scleral icterus, mucous membranes moist, throat clear, neck supple, nontender, trachea midline. Lungs: Clear to auscultation, breath sounds equal bilaterally, chest nontender. Heart: S1S2, regular, negative for clicks, rubs, or JVD. Abdomen: Soft, nondistended, nontender. Negative for masses or hepatosplenomegaly. Negative for costovertebral tenderness. Pelvis: Stable nontender. Genitourinary: Deferred. Rectal: Deferred. Extremities: Atraumatic, negative for cords or calf pain. Neurovascular unremarkable. Neuro: Awake, alert, oriented. Cranial nerves II through XII unremarkable. Cerebellum unremarkable. Motor and sensory unremarkable throughout. Exam nonfocal. Diagnostics: [CBC CMP blood cultures urine culture UA lactate troponin influenza EKG Chest 1 view] Therapeutics: [1 L bolus] Tamiflu Phenergan with codeine Continue Cipro for UTI Impression: Influenza UTI day 2 of Cipro History of baseline Definitive disposition and diagnosis as appropriate pending reevaluation and review of above. headache Pain Score (Numeric/FACES): 2 - Related Data Allergies Allergy/AdvReac Type Severity Reaction Status Date / Time Penicillins Allergy Severe Cannot Verified 01/01/17 09:39 Remember silver Allergy Rash Verified 06/18/17 12:15 [From Tegaderm AG Mesh] Home Meds: Home Meds ALPRAZolam [Xanax] 0.25 mg PO DAILY 06/18/17 [History] Ciprofloxacin [Ciprofloxacin HCl] 250 mg PO BID 06/18/17 [History] Clopidogrel [Plavix] 75 mg PO DAILY 06/18/17 [History] Desvenlafaxine [Pristiq] 100 mg PO DAILY 06/18/17 [History] Famotidine 20 mg PO BID 06/18/17 [History] Gemfibrozil 600 mg PO BID 06/18/17 [History] Insulin Aspart [NovoLOG] 15 unit SUBCUT DAILY 06/18/17 [History] Insulin Glarg,Human.Rec.Analog [Lantus] 50 units SUBCUT BEDTIME 06/18/17 [ History] Losartan [Cozaar] 0.5 mcg PO DAILY 06/18/17 [History] Meclizine [Antivert] 12.5 mg PO TID PRN 06/18/17 [History] Melatonin 3 mg PO DAILY 06/18/17 [History] Nitroglycerin [Nitrostat] 0.4 mg SL ASDIRECTED PRN 06/18/17 [History] Ondansetron 4 mg PO ONETIME PRN 06/18/17 [History] Prednisone [IJD: predniSONE] 3 tab PO DAILY 06/18/17 [History] Sennosides/Docusate Sodium [Senna-S] 2 tab PO BEDTIME 06/18/17 [History] Sulfamethoxazole/Trimethoprim [Bactrim Ds Tablet] 1 each PO DAILY 06/18/17 [ History] atorvaSTATin [Lipitor] 80 mg PO BEDTIME 06/18/17 [History] oxyCODONE 5 mg PO DAILY 06/18/17 [History] Past Medical History Cardiovascular History: Reports: Angina, Hypertension Other Cardiovascular History: 'partial heart' Respiratory History: Reports: Sleep Apnea [employer]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: Musculoskeletal History: Reports: Fracture Neurological History: Reports: Concussion, CVA, Headaches, Chronic, Head Trauma , Vertigo, Other (See Below) Other Neuro History: brainstem and spinal cord lesions Psychiatric History: Reports: Anxiety, Depression Endocrine/Metabolic History: Reports: Diabetes, Type II Hematologic History: Reports: Other (See Below) Other Hematologic History: Easy bruising, not on anticoagulant therapy Oncologic (Cancer) History: Reports: Lymphoma - Infectious Disease History Infectious Disease History: Reports: Chicken Pox, Measles, Mumps - Past Surgical History HEENT Surgical History: Reports: Adenoidectomy, Cataract Surgery, Tonsillectomy , Other (See Below) Other HEENT Surgeries/Procedures: Sinus surgery, blepheroplasty Other Cardiovascular Surgeries/Procedures: 3 bypasses, 10 stents Musculoskeletal Surgical History: Reports: Carpal Tunnel Social & Family History - Family History Family Medical History: Noncontributory - Tobacco Use Smoking Status *Q: Never Smoker Second Hand Smoke Exposure: No - Caffeine Use Caffeine Use: Reports: None - Recreational Drug Use Recreational Drug Use: No ED ROS GENERAL - Review of Systems Review Of Systems: ROS reveals no pertinent complaints other than HPI. ED EXAM, GENERAL - Physical Exam Exam: See Below Course - Vital Signs Last Recorded V/S: Last Vital Signs Temp 97.4 F 06/18/17 12:16 Pulse 107 H 06/18/17 12:16 Resp 18 06/18/17 12:16 BP 153/81 H 06/18/17 12:16 Pulse Ox 94 L 06/18/17 12:16 - Orders/Labs/Meds Orders: Active Orders 24 hr Category Date Time Status EKG Documentation Completion [RC] STAT Care 06/18/17 12:08 Active CKMB [CHEM] Stat Lab 06/18/17 14:14 Received COMPREHENSIVE METABOLIC PN,CMP [CHEM] Stat Lab 06/18/17 14:14 Results CREATINE KINASE,CK [CHEM] Stat Lab 06/18/17 14:14 Received CULTURE BLOOD [BC] Stat Lab 06/18/17 14:00 Received CULTURE BLOOD [BC] Stat Lab 06/18/17 14:14 Results CULTURE URINE [RM] Stat Lab 06/18/17 12:40 Received TROPONIN I [CHEM] Stat Lab 06/18/17 14:14 Results Labs: Laboratory Tests 06/18/17 06/18/17 06/18/17 Range/Units 12:16 12:40 14:14 WBC 8.41 (4.0-11.0) K/uL RBC 4.54 (4.30-5.90) M/uL Hgb 14.3 (12.0-16.0) g/dL Hct 41.6 (36.0-46.0) % MCV 91.6 (80.0-98.0) fL MCH 31.5 (27.0-32.0) pg MCHC 34.4 (31.0-37.0) g/dL RDW Std Deviation 49.0 (28.0-62.0) fl RDW Coeff of Aranza 15 (11.0-15.0) % Plt Count 153 (150-400) K/uL MPV 9.90 (7.40-12.00) fL Add Manual Diff YES Neutrophils % (Manual) 78 (48.0-80.0) % Band Neutrophils % 7 % Lymphocytes % (Manual) 6 L (16.0-40.0) % Monocytes % (Manual) 8 (0.0-15.0) % Eosinophils % (Manual) 1 (0.0-7.0) % Nucleated RBC % 0.0 /100WBC Absolute Seg Neuts 6.6 H (1.4-5.7) Band Neutrophils # 0.6 Lymphocytes # (Manual) 0.5 L (0.6-2.4) Monocytes # (Manual) 0.7 (0.0-0.8) Eosinophils # (Manual) 0.1 (0.0-0.7) Nucleated RBCs # 0 K/uL Lactate (0.20-2.00) mmol/L Sodium (136-146) mmol/L Potassium (3.5-5.1) mmol/L Chloride (98-110) mmol/L Carbon Dioxide (21-31) mmol/L BUN (6.0-23.0) mg/dL Creatinine (0.6-1.5) mg/dL Est Cr Clr Drug Dosing mL/min Estimated GFR (MDRD) ml/min Glucose (60-110) mg/dL POC Glucose 72 (60-110) mg/dL Calcium (8.8-10.8) mg/dL Total Bilirubin (0.1-1.5) mg/dL AST (5-40) IU/L ALT (8-54) IU/L Alkaline Phosphatase (40-150) Total Protein (6.0-8.0) g/dL Albumin (3.4-4.8) g/dL Globulin (2.0-3.5) g/dL Albumin/Globulin Ratio (1.3-2.8) Urine Color YELLOW Urine Appearance CLEAR Urine pH 5.5 (5.0-8.0) Ur Specific [place] 1.025 (1.001-1.035) Urine Protein NEGATIVE (NEGATIVE) mg/dL Urine Glucose (UA) >=1000 (NEGATIVE) mg/dL Urine Ketones NEGATIVE (NEGATIVE) mg/dL Urine Occult Blood NEGATIVE (NEGATIVE) Urine Nitrite NEGATIVE (NEGATIVE) Urine Bilirubin NEGATIVE (NEGATIVE) Urine Urobilinogen 0.2 (<2.0) EU/dL Ur Leukocyte Esterase TRACE (NEGATIVE) Urine RBC 0-2 (0-2/HPF) Urine WBC 0-2 (0-5/HPF) Ur Epithelial Cells OCCASIONAL (NONE-FEW) Urine Bacteria RARE (NEGATIVE) Urine Mucus LIGHT (NONE-MOD) 06/18/17 06/18/17 Range/Units 14:14 14:14 WBC (4.0-11.0) K/uL RBC (4.30-5.90) M/uL Hgb (12.0-16.0) g/dL Hct (36.0-46.0) % MCV (80.0-98.0) fL MCH (27.0-32.0) pg MCHC (31.0-37.0) g/dL RDW Std Deviation (28.0-62.0) fl RDW Coeff of Aranza (11.0-15.0) % Plt Count (150-400) K/uL MPV (7.40-12.00) fL Add Manual Diff Neutrophils % (Manual) (48.0-80.0) % Band Neutrophils % % Lymphocytes % (Manual) (16.0-40.0) % Monocytes % (Manual) (0.0-15.0) % Eosinophils % (Manual) (0.0-7.0) % Nucleated RBC % /100WBC Absolute Seg Neuts (1.4-5.7) Band Neutrophils # Lymphocytes # (Manual) (0.6-2.4) Monocytes # (Manual) (0.0-0.8) Eosinophils # (Manual) (0.0-0.7) Nucleated RBCs # K/uL Lactate 1.6 (0.20-2.00) mmol/L Sodium 137 (136-146) mmol/L Potassium 4.2 (3.5-5.1) mmol/L Chloride 103 (98-110) mmol/L Carbon Dioxide 24 (21-31) mmol/L BUN 26 H (6.0-23.0) mg/dL Creatinine 1.2 (0.6-1.5) mg/dL Est Cr Clr Drug Dosing 43.75 mL/min Estimated GFR (MDRD) 45.1 ml/min Glucose 115 H (60-110) mg/dL POC Glucose (60-110) mg/dL Calcium 9.1 (8.8-10.8) mg/dL Total Bilirubin 0.6 (0.1-1.5) mg/dL AST 20 (5-40) IU/L ALT 14 (8-54) IU/L Alkaline Phosphatase 109 (40-150) Total Protein 5.2 L (6.0-8.0) g/dL Albumin 3.0 L (3.4-4.8) g/dL Globulin 2.2 (2.0-3.5) g/dL Albumin/Globulin Ratio 1.4 (1.3-2.8) Urine Color Urine Appearance Urine pH (5.0-8.0) Ur Specific [place] (1.001-1.035) Urine Protein (NEGATIVE) mg/dL Urine Glucose (UA) (NEGATIVE) mg/dL Urine Ketones (NEGATIVE) mg/dL Urine Occult Blood (NEGATIVE) Urine Nitrite (NEGATIVE) Urine Bilirubin (NEGATIVE) Urine Urobilinogen (<2.0) EU/dL Ur Leukocyte Esterase (NEGATIVE) Urine RBC (0-2/HPF) Urine WBC (0-5/HPF) Ur Epithelial Cells (NONE-FEW) Urine Bacteria (NEGATIVE) Urine Mucus (NONE-MOD) Departure - Departure Time of Disposition: 14:56 Disposition: Home, Self-Care 01 Condition: Good Clinical Impression: Influenza - Discharge Information Referrals: Salvador Gonzáles MD [Primary Care Provider] - Additional Instructions: Rest fluids nutrition Medications as prescribed Continue your current home medications Follow-up with primary care in 2 weeks sooner as needed The following information is given to patients seen in the emergency department who are being discharged to home. This information is to outline your options for follow-up care. We provide all patients seen in our emergency department with a follow-up referral. The need for follow-up, as well as the timing and circumstances, are variable depending upon the specifics of your emergency department visit. If you don't have a primary care physician on staff, we will provide you with a referral. We always advise you to contact your personal physician following an emergency department visit to inform them of the circumstance of the visit and for follow-up with them and/or the need for any referrals to a consulting specialist. The emergency department will also refer you to a specialist when appropriate. This referral assures that you have the opportunity for follow-up care with a specialist. All of these measure are taken in an effort to provide you with optimal care, which includes your follow-up. Under all circumstances we always encourage you to contact your private physician who remains a resource for coordinating your care. When calling for follow-up care, please make the office aware that this follow-up is from your recent emergency room visit. If for any reason you are refused follow-up, please contact the [facility] emergency department at and asked to speak to the emergency department charge nurse. - My Orders Last 24 Hours: My Active Orders 06/18/17 12:08 EKG Documentation Completion [RC] STAT 06/18/17 12:40 CULTURE URINE [RM] Stat 06/18/17 14:00 CULTURE BLOOD [BC] Stat 06/18/17 14:14 CKMB [CHEM] Stat COMPREHENSIVE METABOLIC PN,CMP [CHEM] Stat CREATINE KINASE,CK [CHEM] Stat CULTURE BLOOD [BC] Stat TROPONIN I [CHEM] Stat - Assessment/Plan Last 24 Hours: My Active Orders 06/18/17 12:08 EKG Documentation Completion [RC] STAT 06/18/17 12:40 CULTURE URINE [RM] Stat 06/18/17 14:00 CULTURE BLOOD [BC] Stat 06/18/17 14:14 CKMB [CHEM] Stat COMPREHENSIVE METABOLIC PN,CMP [CHEM] Stat CREATINE KINASE,CK [CHEM] Stat CULTURE BLOOD [BC] Stat TROPONIN I [CHEM] Stat
--- NOTE | 2017-06-18 13:39 | CR ---
EXAMINATION: Portable chest radiograph. HISTORY: Pain. FINDINGS: The trachea is midline. The cardiomediastinal silhouette is within normal limits. No pulmonary infilt rates, effusions or pneumothorax. Median sternotomy wires are noted. There is a right-sided portacath eter. Osseous structures appear unremarkable. IMPRESSION: No acute cardiopulmonary process.
[2017-06-18 14:50] LABS: CHLORIDE,CL 103 mmol/L (98-110); SODIUM,NA 137 mmol/L (136-146)
[2017-06-18] MEDS ORDERED: Sodium Chloride 0.9% 1,000 ML IV SCH (15:45)
--- NOTE | 2017-06-18 15:46 | PCM.HP ---
H&P History of Present Illness - General Date of Service: 06/18/17 Admit Problem/Dx: Admission Diagnosis/Problem Admission Diagnosis/Problem Influenza - History of Present Illness Initial Comments - Free Text/Narative: 67-year-old female with a past medical history of brain lesion s/p biopsy in February, T2DM, CHF, chronic steroid use presenting today to ED from outpatient facility for concerns of complicated UTI. Patient states that since Wednesday, she has been feeling very ill and weak. She went to her PCP, who noted her to have a UTI and started her on PO Ciprofloxacin. She returned back to her PCP today because symptoms worsened, and so was referred to ED for concerns of sepsis along with hyperglycemia as her glucose was in the 700s. She complains of a new headache located in the front of her head, productive cough for clear sputum, and persistent burning on urination. She tells me she got a brainstem biopsy back in February and since then has been experiencing chronic neck pain and a headache located at the site of the biopsy. ER Course: CBC unremarkable CMP - elevated BUN 25 + Influenza negative CXR UA negative although currently on PO ciprofloxacin with symptoms of burning on urination IVNS Bolus x1 Urine culture pending Blood culture pending headache Pain Score (Numeric/FACES): 2 - Related Data Allergies/Adverse Reactions: Allergies Allergy/AdvReac Type Severity Reaction Status Date / Time Penicillins Allergy Severe Cannot Verified 01/01/17 09:39 Remember silver Allergy Rash Verified 06/18/17 12:15 [From TegadeImpactRx AG Mesh] Home Medications: Home Meds ALPRAZolam [Xanax] 0.25 mg PO DAILY 06/18/17 [History] Ciprofloxacin [Ciprofloxacin HCl] 250 mg PO BID 06/18/17 [History] Clopidogrel [Plavix] 75 mg PO DAILY 06/18/17 [History] Desvenlafaxine [Pristiq] 100 mg PO DAILY 06/18/17 [History] Famotidine 20 mg PO BID 06/18/17 [History] Gemfibrozil 600 mg PO BID 06/18/17 [History] Insulin Aspart [NovoLOG] 15 unit SUBCUT DAILY 06/18/17 [History] Insulin Glarg,Human.Rec.Analog [Lantus] 50 units SUBCUT BEDTIME 06/18/17 [ History] Losartan [Cozaar] 0.5 mcg PO DAILY 06/18/17 [History] Meclizine [Antivert] 12.5 mg PO TID PRN 06/18/17 [History] Melatonin 3 mg PO DAILY 06/18/17 [History] Nitroglycerin [Nitrostat] 0.4 mg SL ASDIRECTED PRN 06/18/17 [History] Ondansetron 4 mg PO ONETIME PRN 06/18/17 [History] Prednisone [IJD: predniSONE] 3 tab PO DAILY 06/18/17 [History] Sennosides/Docusate Sodium [Senna-S] 2 tab PO BEDTIME 06/18/17 [History] Sulfamethoxazole/Trimethoprim [Bactrim Ds Tablet] 1 each PO DAILY 06/18/17 [ History] atorvaSTATin [Lipitor] 80 mg PO BEDTIME 06/18/17 [History] oxyCODONE 5 mg PO DAILY 06/18/17 [History] Past Medical History Cardiovascular History: Reports: Angina, Hypertension Other Cardiovascular History: 'partial heart' Respiratory History: Reports: Sleep 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: Musculoskeletal History: Reports: Fracture Neurological History: Reports: Concussion, CVA, Headaches, Chronic, Head Trauma , Vertigo, Other (See Below) Other Neuro History: brainstem and spinal cord lesions Psychiatric History: Reports: Anxiety, Depression Endocrine/Metabolic History: Reports: Diabetes, Type II Hematologic History: Reports: Other (See Below) Other Hematologic History: Easy bruising, not on anticoagulant therapy Oncologic (Cancer) History: Reports: Lymphoma - Infectious Disease History Infectious Disease History: Reports: Chicken Pox, Measles, Mumps - Past Surgical History HEENT Surgical History: Reports: Adenoidectomy, Cataract Surgery, Tonsillectomy , Other (See Below) Other HEENT Surgeries/Procedures: Sinus surgery, blepheroplasty Other Cardiovascular Surgeries/Procedures: 3 bypasses, 10 stents Musculoskeletal Surgical History: Reports: Carpal Tunnel Social & Family History - Family History Family Medical History: Noncontributory - Tobacco Use Smoking Status *Q: Never Smoker Second Hand Smoke Exposure: No - Caffeine Use Caffeine Use: Reports: None - Recreational Drug Use Recreational Drug Use: No H&P Review of Systems - Review of Systems: Review Of Systems: See Below General: Reports: Chills, Weakness, Fatigue HEENT: Reports: Headaches, Vertigo. Denies: Ear Pain, Eye Pain, Sore Throat, Visual Changes Pulmonary: Reports: Cough, Sputum. Denies: Pleuritic Chest Pain, Hemoptysis Cardiovascular: Reports: No Symptoms Gastrointestinal: Reports: No Symptoms Genitourinary: Reports: Burning, Pain. Denies: Hematuria Musculoskeletal: Reports: Neck Pain Skin: Reports: No Symptoms Psychiatric: Reports: No Symptoms Neurological: Reports: Headache Hematologic/Lymphatic: Reports: No Symptoms Immunologic: Reports: No Symptoms Exam - Exam Exam: See Below - Vital Signs Vital Signs: Last Vital Signs Temp 36.5 C 06/18/17 15:24 Pulse 93 06/18/17 15:24 Resp 18 06/18/17 15:24 BP 115/77 06/18/17 15:24 Pulse Ox 93 L 06/18/17 15:24 Weight: 92 kg - Exam General: Alert, Oriented, Cooperative HEENT: Conjunctiva Clear, EOMI, Hearing Intact, Mucosa Moist & [place], Other ( Right TM erythematous, nonbulging. Left TM intact ) Lungs: Clear to Auscultation, Other (increase work of breathing and coughing throughout the exam) Cardiovascular: Regular Rate, Regular Rhythm GI/Abdominal Exam: Normal Bowel Sounds, Soft, Other (obese) Back Exam: Normal Inspection. No: CVA Tenderness (L), CVA Tenderness (R) Extremities: Normal Inspection, Normal Capillary Refill. No: Pedal Edema Peripheral Pulses: 2+: Posterior Tibial (L), Posterior Tibial (R) Skin: Warm Neurological: Cranial Nerves Intact Neuro Extensive - Mental Status: Alert, Oriented x3, Normal Mood/Affect Neuro Extensive - Motor, Sensory, Reflexes: CN II-XII Intact Psychiatric: Alert, Other (annoyed at simple questions ) - Patient Data Lab Results Last 24 hrs: Laboratory Results - last 24 hr 06/18/17 06/18/17 06/18/17 Range/Units 12:16 12:40 14:14 WBC 8.41 (4.0-11.0) K/uL RBC 4.54 (4.30-5.90) M/uL Hgb 14.3 (12.0-16.0) g/dL Hct 41.6 (36.0-46.0) % MCV 91.6 (80.0-98.0) fL MCH 31.5 (27.0-32.0) pg MCHC 34.4 (31.0-37.0) g/dL RDW Std Deviation 49.0 (28.0-62.0) fl RDW Coeff of Aranza 15 (11.0-15.0) % Plt Count 153 (150-400) K/uL MPV 9.90 (7.40-12.00) fL Add Manual Diff YES Neutrophils % (Manual) 78 (48.0-80.0) % Band Neutrophils % 7 % Lymphocytes % (Manual) 6 L (16.0-40.0) % Monocytes % (Manual) 8 (0.0-15.0) % Eosinophils % (Manual) 1 (0.0-7.0) % Nucleated RBC % 0.0 /100WBC Absolute Seg Neuts 6.6 H (1.4-5.7) Band Neutrophils # 0.6 Lymphocytes # (Manual) 0.5 L (0.6-2.4) Monocytes # (Manual) 0.7 (0.0-0.8) Eosinophils # (Manual) 0.1 (0.0-0.7) Nucleated RBCs # 0 K/uL Lactate (0.20-2.00) mmol/L Sodium (136-146) mmol/L Potassium (3.5-5.1) mmol/L Chloride (98-110) mmol/L Carbon Dioxide (21-31) mmol/L BUN (6.0-23.0) mg/dL Creatinine (0.6-1.5) mg/dL Est Cr Clr Drug Dosing mL/min Estimated GFR (MDRD) ml/min Glucose (60-110) mg/dL POC Glucose 72 (60-110) mg/dL Calcium (8.8-10.8) mg/dL Total Bilirubin (0.1-1.5) mg/dL AST (5-40) IU/L ALT (8-54) IU/L Alkaline Phosphatase (40-150) Creatine Kinase (9-236) IU/L CK-MB (CK-2) (0-6.6) ng/ml Troponin I (0.0-0.29) NG/ML Total Protein (6.0-8.0) g/dL Albumin (3.4-4.8) g/dL Globulin (2.0-3.5) g/dL Albumin/Globulin Ratio (1.3-2.8) Urine Color YELLOW Urine Appearance CLEAR Urine pH 5.5 (5.0-8.0) Ur Specific [place] 1.025 (1.001-1.035) Urine Protein NEGATIVE (NEGATIVE) mg/dL Urine Glucose (UA) >=1000 (NEGATIVE) mg/dL Urine Ketones NEGATIVE (NEGATIVE) mg/dL Urine Occult Blood NEGATIVE (NEGATIVE) Urine Nitrite NEGATIVE (NEGATIVE) Urine Bilirubin NEGATIVE (NEGATIVE) Urine Urobilinogen 0.2 (<2.0) EU/dL Ur Leukocyte Esterase TRACE (NEGATIVE) Urine RBC 0-2 (0-2/HPF) Urine WBC 0-2 (0-5/HPF) Ur Epithelial Cells OCCASIONAL (NONE-FEW) Urine Bacteria RARE (NEGATIVE) Urine Mucus LIGHT (NONE-MOD) 06/18/17 06/18/17 06/18/17 Range/Units 14:14 14:14 14:14 WBC (4.0-11.0) K/uL RBC (4.30-5.90) M/uL Hgb (12.0-16.0) g/dL Hct (36.0-46.0) % MCV (80.0-98.0) fL MCH (27.0-32.0) pg MCHC (31.0-37.0) g/dL RDW Std Deviation (28.0-62.0) fl RDW Coeff of Aranza (11.0-15.0) % Plt Count (150-400) K/uL MPV (7.40-12.00) fL Add Manual Diff Neutrophils % (Manual) (48.0-80.0) % Band Neutrophils % % Lymphocytes % (Manual) (16.0-40.0) % Monocytes % (Manual) (0.0-15.0) % Eosinophils % (Manual) (0.0-7.0) % Nucleated RBC % /100WBC Absolute Seg Neuts (1.4-5.7) Band Neutrophils # Lymphocytes # (Manual) (0.6-2.4) Monocytes # (Manual) (0.0-0.8) Eosinophils # (Manual) (0.0-0.7) Nucleated RBCs # K/uL Lactate 1.6 (0.20-2.00) mmol/L Sodium 137 (136-146) mmol/L Potassium 4.2 (3.5-5.1) mmol/L Chloride 103 (98-110) mmol/L Carbon Dioxide 24 (21-31) mmol/L BUN 26 H (6.0-23.0) mg/dL Creatinine 1.2 (0.6-1.5) mg/dL Est Cr Clr Drug Dosing 43.75 mL/min Estimated GFR (MDRD) 45.1 ml/min Glucose 115 H (60-110) mg/dL POC Glucose (60-110) mg/dL Calcium 9.1 (8.8-10.8) mg/dL Total Bilirubin 0.6 (0.1-1.5) mg/dL AST 20 (5-40) IU/L ALT 14 (8-54) IU/L Alkaline Phosphatase 109 (40-150) Creatine Kinase 31 (9-236) IU/L CK-MB (CK-2) 4.1 (0-6.6) ng/ml Troponin I < 0.10 (0.0-0.29) NG/ML Total Protein 5.2 L (6.0-8.0) g/dL Albumin 3.0 L (3.4-4.8) g/dL Globulin 2.2 (2.0-3.5) g/dL Albumin/Globulin Ratio 1.4 (1.3-2.8) Urine Color Urine Appearance Urine pH (5.0-8.0) Ur Specific [place] (1.001-1.035) Urine Protein (NEGATIVE) mg/dL Urine Glucose (UA) (NEGATIVE) mg/dL Urine Ketones (NEGATIVE) mg/dL Urine Occult Blood (NEGATIVE) Urine Nitrite (NEGATIVE) Urine Bilirubin (NEGATIVE) Urine Urobilinogen (<2.0) EU/dL Ur Leukocyte Esterase (NEGATIVE) Urine RBC (0-2/HPF) Urine WBC (0-5/HPF) Ur Epithelial Cells (NONE-FEW) Urine Bacteria (NEGATIVE) Urine Mucus (NONE-MOD) Result Diagrams: 06/18/17 14:14 06/18/17 14:14 [place] Results Last 24 hrs: Microbiology 06/18/17 14:14 Anaerobic Blood Culture - Final Blood 06/18/17 12:40 Influenza Type A Antigen Screen - Final Nasopharyngeal Swab Positive Influenza A Ag Influenza Type B Antigen Screen - Final NEGATIVE INFLUENZA B VIRUS AG *Q Meaningful Use (ADM) - VTE *Q VTE Criteria *Q: - Stroke *Q Stroke Criteria *Q: - AMI *Q AMI Criteria *Q: Problem List Initiated/Reviewed/Updated: Yes Orders Last 24hrs: Active Orders 24 hr Category Date Time Status Admission Status [Patient Status] [ADT] Stat ADT 06/18/17 15:41 Active EKG Documentation Completion [RC] STAT Care 06/18/17 12:08 Active CULTURE BLOOD [BC] Stat Lab 06/18/17 14:00 Received CULTURE BLOOD [BC] Stat Lab 06/18/17 14:14 Results CULTURE URINE [RM] Stat Lab 06/18/17 12:40 Received Sodium Chloride 0.9% [Normal Saline] 1,000 ml Med 06/18/17 15:45 Active IV STAT Medication Orders Sodium Chloride (Normal Saline) 1,000 mls @ 125 mls/hr IV STAT CHANTE Assessment/Plan Comment:: Assessment: #1. Influenza positive #2. UTI #3. Mild dehydration #4. Otitis media #5. History of CHF, T2DM, Brain lesion, chronic steroids Plan: #1. Admit to floor for observation. Full code #2. Vital signs per floor routine #3. IVNS 50 mL/hr #4. Continue PO Ciprofloxacin #5. Insulin sliding scale high dose #6. Tamiflu for influenza #7. Lovenox for DVT Prophylaxis
[2017-06-18] MEDS ORDERED: Nitroglycerin 0.4 MG Tab.SL SL PRN (16:30)
[2017-06-18] MEDS ORDERED: Ondansetron 4 MG Tab PO PRN (16:30)
[2017-06-18] MEDS ORDERED: Meclizine 25 MG Tab PO PRN (16:30)
[2017-06-18] MEDS: Sodium Chloride 0.9% 1,000 ML IV SCH (17:25)
[2017-06-18] MEDS: Enoxaparin 40 MG/0.4 ML Syringe SUBCUT SCH (18:19)
[2017-06-18] MEDS: Ciprofloxacin 500 MG Tab PO SCH ×2 (18:21→20:28)
[2017-06-18] MEDS: Oseltamivir 75 MG Cap PO SCH (18:21)
[2017-06-18] MEDS: Insulin Aspart 100 Units/ML 3 ML Pen SUBCUT SCH ×2 (18:24→20:42)
[2017-06-18] MEDS: Melatonin 3 MG Tab PO SCH (18:27)
[2017-06-18] MEDS: Insulin Glargine,Human Rec. Analog 100 Units/ML 3 ML Pen SUBCUT SCH (20:29)
[2017-06-18] MEDS: Famotidine 20 MG Tab PO SCH (20:30)
[2017-06-18] MEDS: atorvaSTATin 40 MG Tab PO SCH (20:30)
[2017-06-18] MEDS: Gemfibrozil 600 MG Tab PO SCH (20:30)
[2017-06-18] MEDS ORDERED: Insulin Aspart 100 Units/ML 3 ML Pen SUBCUT SCH (21:00)
[2017-06-18] MEDS: Acetaminophen 325 MG Tab PO PRN (22:17)
[2017-06-19] MEDS: Insulin Aspart 100 Units/ML 3 ML Pen SUBCUT SCH ×4 (06:35→20:01)
--- NOTE | 2017-06-19 06:39 | PCM.PN ---
- General Info Date of Service: 06/19/17 Admission Dx/Problem (Free Text): Admission Diagnosis/Problem Admission Diagnosis/Problem Influenza Subjective Update: Still feeling very week and fatigued. Having difficulty getting up to go to the bathroom. Does feel she is better than yesterday however. Denies nausea, vomiting, diarrhea, and dysuria. Currently denies any chest pain, palpitations, shortness of breath, syncopal episodes, focal neurologic deficits. Functional Status: Reports: Pain Controlled, Tolerating Diet, Ambulating - Review of Systems General: Reports: Weakness, Fatigue, Malaise. Denies: Fever, Chills HEENT: Denies: Headaches, Visual Changes Pulmonary: Denies: Shortness of Breath, Cough, Hemoptysis Cardiovascular: Denies: Chest Pain, Edema Gastrointestinal: Denies: Abdominal Pain, Diarrhea, Nausea, Vomiting Genitourinary: Denies: Dysuria, Hematuria Musculoskeletal: Denies: Neck Pain, Leg Pain Skin: Denies: Cyanosis Neurological: Denies: Confusion, Dizziness, Headache Psychiatric: Denies: Confusion - Patient Data Vitals - Most Recent: Last Vital Signs Temp 99 F 06/19/17 04:00 Pulse 92 06/19/17 04:00 Resp 16 06/19/17 04:00 BP 115/65 06/19/17 04:00 Pulse Ox 96 06/19/17 04:00 Weight - Most Recent: 92.85 kg I&O - Last 24 Hours: Intake & Output 06/18/17 06/18/17 06/19/17 14:59 22:59 06:59 Intake Total 1256 Output Total 200 1300 Balance -200 -44 Lab Results Last 24 Hours: Laboratory Results - last 24 hr 06/18/17 06/18/17 06/19/17 Range/Units 17:27 20:25 06:12 POC Glucose 287 H 399 H 65 (60-110) mg/dL Med Orders - Current: Current Medications Acetaminophen (Tylenol) 650 mg PO Q4H PRN PRN Reason: Pain Last Admin: 06/18/17 22:17 Dose: 650 mg Alprazolam (Xanax) 0.25 mg PO DAILY [facility] Atorvastatin Calcium (Lipitor) 80 mg PO BEDTIME [facility] Last Admin: 06/18/17 20:30 Dose: 80 mg Ciprofloxacin (Ciprofloxacin Hcl) 500 mg PO BID [facility] Last Admin: 06/18/17 20:28 Dose: 500 mg Clopidogrel Bisulfate (Plavix) 75 mg PO DAILY [facility] Enoxaparin Sodium (Lovenox) 40 mg SUBCUT Q24H [facility] Last Admin: 06/18/17 18:19 Dose: 40 mg Famotidine (Pepcid) 20 mg PO BID [facility] Last Admin: 06/18/17 20:30 Dose: 20 mg Gemfibrozil (Lopid) 600 mg PO BID [facility] Last Admin: 06/18/17 20:30 Dose: 600 mg Sodium Chloride (Normal Saline) 1,000 mls @ 50 mls/hr IV ASDIRECTED [facility] Last Admin: 06/18/17 17:25 Dose: 50 mls/hr Insulin Aspart (Novolog) 0 unit SUBCUT QIDACANDBED [facility] PRN Reason: Protocol Last Admin: 06/19/17 06:35 Dose: Not Given Insulin Glargine (Lantus Solostar) 50 units SUBCUT BEDTIME [facility] Last Admin: 06/18/17 20:29 Dose: 50 units Losartan Potassium (Cozaar) 0.0005 mg PO DAILY [facility] Meclizine HCl (Antivert) 12.5 mg PO TID PRN PRN Reason: Dizziness Last Admin: 06/18/17 18:21 Dose: 12.5 mg Melatonin (Melatonin) 3 mg PO DAILY [facility] Last Admin: 06/18/17 18:27 Dose: Not Given Nitroglycerin (Nitrostat) 0.4 mg SL Q5M PRN PRN Reason: Chest Pain Ondansetron HCl (Zofran) 4 mg PO ONETIME PRN PRN Reason: Nausea Oseltamivir Phosphate (Tamiflu) 75 mg PO BID [facility] Last Admin: 06/18/17 18:21 Dose: 75 mg Oxycodone HCl (Oxycodone) 5 mg PO DAILY [facility] Desvenlafaxine [ (Pristiq] 100 Mg) 1 each PO DAILY [facility] Prednisone (Prednisone) 60 mg PO DAILY [facility] Senna/Docusate Sodium (Senna Plus) 2 tab PO BEDTIME [facility] Last Admin: 06/18/17 20:31 Dose: 2 tab Discontinued Medications Sodium Chloride (Normal Saline) 1,000 mls @ 125 mls/hr IV STAT [facility] Last Admin: 06/18/17 15:58 Dose: 125 mls/hr Insulin Aspart (Novolog) 0 unit SUBCUT QIDACANDBED [facility] PRN Reason: Protocol - Exam Quality Assessment: DVT Prophylaxis General: Alert, Oriented, Cooperative HEENT: Pupils Equal, Pupils Reactive, EOMI, Mucous Membr. Moist/[place] Neck: Supple, Trachea Midline, No JVD Lungs: Clear to Auscultation, Normal Respiratory Effort Cardiovascular: Regular Rate, Regular Rhythm, Murmurs GI/Abdominal Exam: Normal Bowel Sounds, Soft, Non-Tender, No Organomegaly, No Distention (Female) Exam: Deferred Back Exam: Normal Inspection Extremities: Normal Inspection, Non-Tender, No Pedal Edema, Normal Capillary Refill Peripheral Pulses: 2+: Radial (L), Radial (R), Posterior Tibial (L), Posterior Tibial (R), Dorsalis Pedis (L), Dorsalis Pedis (R) Skin: Warm, Dry, Intact Neurological: No New Focal Deficit Psy/Mental Status: Alert, Normal Affect, Normal Mood - Problem List & Annotations (1) UTI (urinary tract infection) SNOMED Code(s): 15463226 Code(s): N39.0 - URINARY TRACT INFECTION, SITE NOT SPECIFIED Status: Acute Priority: High Current Visit: Yes Qualifiers: Urinary tract infection type: acute cystitis (2) Dehydration SNOMED Code(s): 31929630 Code(s): E86.0 - DEHYDRATION Status: Resolved Priority: High Current Visit: Yes (3) CAD (coronary artery disease) SNOMED Code(s): 62947729 Code(s): I25.10 - ATHSCL HEART DISEASE OF [place] CORONARY ARTERY W/O ANG PCTRS Status: Chronic Priority: Medium Current Visit: Yes Qualifiers: Coronary Disease-Associated Artery/Lesion type: unspecified vessel or lesion type [place] vs. transplanted heart: [place] heart Associated angina: without angina Qualified Code(s): I25.10 - Atherosclerotic heart disease of [place] coronary artery without angina pectoris (4) HTN (hypertension) SNOMED Code(s): 92808149 Code(s): I10 - ESSENTIAL (PRIMARY) HYPERTENSION Status: Chronic Priority : Medium Current Visit: Yes Qualifiers: Hypertension type: unspecified Qualified Code(s): I10 - Essential (primary ) hypertension (5) Influenza SNOMED Code(s): 7339878 Code(s): J11.1 - FLU DUE TO UNIDENTIFIED INFLUENZA VIRUS W OTH RESP MANIFEST Status: Acute Priority: High Current Visit: Yes (6) Nausea and vomiting SNOMED Code(s): 89342541 Code(s): R11.2 - NAUSEA WITH VOMITING, UNSPECIFIED Status: Resolved Priority: High Current Visit: Yes Qualifiers: Vomiting type: unspecified Vomiting Intractability: non-intractable Qualified Code(s): R11.2 - Nausea with vomiting, unspecified - Problem List Review Problem List Initiated/Reviewed/Updated: Yes - My Orders Last 24 Hours: My Active Orders 06/18/17 19:17 Acetaminophen [Tylenol] 650 mg PO Q4H PRN 06/18/17 21:00 Insulin Glarg,Human.Rec.Analog [LantUS Solostar] 50 units SUBCUT BEDTIME - Plan Plan:: 67-year-old female admitted 06/18/17 for dehydration secondary to influenza and UTI with past medical history of CAD, CABG, CHF, type 2 diabetes, 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 Dehydration: Resolved with slow IV fluid resuscitation as to not volume overload secondary to patient's history of congestive heart failure. Will stop today. Influenza: Currently very weak and fatigued. Only able to walk to bathroom. Has improved however from yesterday where she was fairly mobile. Will need 1 more additional day at least before discharge. Continue Tamiflu 75 mg by mouth twice a day. UTI: Mild. Asymptomatic. We'll continue ciprofloxacin po as patient was on medication prior to admission for this. Type 2 diabetes: Stable. Continue insulin sliding scale high dose CAD, CABG, CHF: Currently stable have resumed home medications and will monitor closely. VTE: Lovenox, SCD Dispo: 1-2 days pending.
[2017-06-19] MEDS: Famotidine 20 MG Tab PO SCH ×2 (08:34→20:01)
[2017-06-19] MEDS: ALPRAZolam 0.25 MG Tab PO SCH (08:34)
[2017-06-19] MEDS: predniSONE 20 MG Tab PO SCH (08:34)
[2017-06-19] MEDS: Clopidogrel 75 MG Tab PO SCH (08:34)
[2017-06-19] MEDS: Oseltamivir 75 MG Cap PO SCH ×2 (08:35→20:00)
[2017-06-19] MEDS: Gemfibrozil 600 MG Tab PO SCH ×2 (08:35→20:01)
[2017-06-19] MEDS: Ciprofloxacin 500 MG Tab PO SCH ×2 (08:35→20:01)
[2017-06-19] MEDS ORDERED: Potassium Chloride 20 MEQ Tab.ER PO ONE (08:42)
[2017-06-19] MEDS: oxyCODONE 5 MG Tab PO SCH (08:43)
[2017-06-19] MEDS: Melatonin 3 MG Tab PO SCH (08:43)
[2017-06-19] MEDS: Sodium Chloride 0.9% 1,000 ML IV SCH (09:00)
[2017-06-19] MEDS: Desvenlafaxine [Pristiq] 100 MG PO SCH (09:00)
[2017-06-19] MEDS ORDERED: Sodium Chloride 0.9% 1,000 ML IV SCH (11:30)
[2017-06-19] MEDS: Losartan 50 MG Tab PO SCH (11:35)
[2017-06-19] MEDS ORDERED: Calcium Carbonate 500 MG Tab.Chew PO ONE (12:03)
[2017-06-19] MEDS: Acetaminophen 325 MG Tab PO PRN ×2 (12:58→19:51)
[2017-06-19] MEDS: Benzonatate 100 MG Cap PO PRN (16:24)
[2017-06-19] MEDS: Enoxaparin 40 MG/0.4 ML Syringe SUBCUT SCH (16:25)
[2017-06-19] MEDS ORDERED: Insulin Aspart 100 Units/ML 3 ML Pen SUBCUT ONE (17:55)
[2017-06-19] MEDS: atorvaSTATin 40 MG Tab PO SCH (20:00)
[2017-06-19] MEDS: Insulin Glargine,Human Rec. Analog 100 Units/ML 3 ML Pen SUBCUT SCH (21:55)
[2017-06-20] MEDS: Insulin Aspart 100 Units/ML 3 ML Pen SUBCUT SCH ×4 (06:48→21:13)
[2017-06-20] MEDS: predniSONE 20 MG Tab PO SCH (08:58)
[2017-06-20] MEDS: ALPRAZolam 0.25 MG Tab PO SCH (08:58)
[2017-06-20] MEDS: Ciprofloxacin 500 MG Tab PO SCH ×2 (08:58→21:03)
[2017-06-20] MEDS: Oseltamivir 75 MG Cap PO SCH ×2 (08:58→21:03)
[2017-06-20] MEDS: Gemfibrozil 600 MG Tab PO SCH ×2 (08:58→21:03)
[2017-06-20] MEDS: Famotidine 20 MG Tab PO SCH ×2 (08:58→21:03)
[2017-06-20] MEDS: Clopidogrel 75 MG Tab PO SCH (08:58)
[2017-06-20] MEDS: oxyCODONE 5 MG Tab PO SCH (09:05)
[2017-06-20] MEDS: Melatonin 3 MG Tab PO SCH (09:05)
[2017-06-20] MEDS: Losartan 50 MG Tab PO SCH (09:05)
[2017-06-20] MEDS: Acetaminophen 325 MG Tab PO PRN ×3 (10:38→22:01)
[2017-06-20] MEDS: Desvenlafaxine [Pristiq] 100 MG PO SCH (10:38)
[2017-06-20 11:07] LABS: CHLORIDE,CL 108 mmol/L (98-110); SODIUM,NA 140 mmol/L (136-146)
--- NOTE | 2017-06-20 15:03 | PCM.PN ---
- Review of Systems Systems Review Comment:: patient did have a fall this morning and hit her left arm and forehead - Patient Data Vitals - Most Recent: Last Vital Signs Temp 36.2 C 06/20/17 13:16 Pulse 86 06/20/17 13:16 Resp 18 06/20/17 13:16 BP 120/62 06/20/17 13:16 Pulse Ox 94 L 06/20/17 13:16 Weight - Most Recent: 92.9 kg I&O - Last 24 Hours: Intake & Output 06/20/17 06/20/17 06/20/17 06:59 14:59 22:59 Intake Total 1219 Output Total 1700 Balance -481 Lab Results Last 24 Hours: Laboratory Results - last 24 hr 06/19/17 06/19/17 06/19/17 Range/Units 10:57 11:46 16:36 WBC (4.0-11.0) K/uL RBC (4.30-5.90) M/uL Hgb (12.0-16.0) g/dL Hct (36.0-46.0) % MCV (80.0-98.0) fL MCH (27.0-32.0) pg MCHC (31.0-37.0) g/dL RDW Std Deviation (28.0-62.0) fl RDW Coeff of [place] (11.0-15.0) % Plt Count (150-400) K/uL MPV (7.40-12.00) fL Neut % (Auto) (48.0-80.0) % Lymph % (Auto) (16.0-40.0) % [place] % (Auto) (0.0-15.0) % Eos % (Auto) (0.0-7.0) % Baso % (Auto) (0.0-1.5) % Neut # (Auto) (1.4-5.7) K/uL Lymph # (Auto) (0.6-2.4) K/uL [place] # (Auto) (0.0-0.8) K/uL Eos # (Auto) (0.0-0.7) K/uL Baso # (Auto) (0.0-0.1) K/uL Nucleated RBC % /100WBC Nucleated RBCs # K/uL Sodium (136-146) mmol/L Potassium (3.5-5.1) mmol/L Chloride (98-110) mmol/L Carbon Dioxide (21-31) mmol/L BUN (6.0-23.0) mg/dL Creatinine (0.6-1.5) mg/dL Est Cr Clr Drug Dosing mL/min Estimated GFR (MDRD) ml/min Glucose (60-110) mg/dL POC Glucose 156 H 201 H 372 H (60-110) mg/dL Calcium (8.8-10.8) mg/dL 06/19/17 06/19/17 06/19/17 Range/Units 17:37 19:55 21:50 WBC (4.0-11.0) K/uL RBC (4.30-5.90) M/uL Hgb (12.0-16.0) g/dL Hct (36.0-46.0) % MCV (80.0-98.0) fL MCH (27.0-32.0) pg MCHC (31.0-37.0) g/dL RDW Std Deviation (28.0-62.0) fl RDW Coeff of [place]anza (11.0-15.0) % Plt Count (150-400) K/uL MPV (7.40-12.00) fL Neut % (Auto) (48.0-80.0) % Lymph % (Auto) (16.0-40.0) % [place] % (Auto) (0.0-15.0) % Eos % (Auto) (0.0-7.0) % Baso % (Auto) (0.0-1.5) % Neut # (Auto) (1.4-5.7) K/uL Lymph # (Auto) (0.6-2.4) K/uL [place] # (Auto) (0.0-0.8) K/uL Eos # (Auto) (0.0-0.7) K/uL Baso # (Auto) (0.0-0.1) K/uL Nucleated RBC % /100WBC Nucleated RBCs # K/uL Sodium (136-146) mmol/L Potassium (3.5-5.1) mmol/L Chloride (98-110) mmol/L Carbon Dioxide (21-31) mmol/L BUN (6.0-23.0) mg/dL Creatinine (0.6-1.5) mg/dL Est Cr Clr Drug Dosing mL/min Estimated GFR (MDRD) ml/min Glucose (60-110) mg/dL POC Glucose 439 H 394 H 282 H (60-110) mg/dL Calcium (8.8-10.8) mg/dL 06/20/17 06/20/17 06/20/17 Range/Units 04:21 06:15 10:35 WBC 4.96 (4.0-11.0) K/uL RBC 4.28 L (4.30-5.90) M/uL Hgb 13.4 (12.0-16.0) g/dL Hct 39.9 (36.0-46.0) % MCV 93.2 (80.0-98.0) fL MCH 31.3 (27.0-32.0) pg MCHC 33.6 (31.0-37.0) g/dL RDW Std Deviation 50.5 (28.0-62.0) fl RDW Coeff of [place] 15 (11.0-15.0) % Plt Count 159 (150-400) K/uL MPV 10.10 (7.40-12.00) fL Neut % (Auto) 43.5 L (48.0-80.0) % Lymph % (Auto) 46.6 H (16.0-40.0) % [place] % (Auto) 9.1 (0.0-15.0) % Eos % (Auto) 0.6 (0.0-7.0) % Baso % (Auto) 0.2 (0.0-1.5) % Neut # (Auto) 2.2 (1.4-5.7) K/uL Lymph # (Auto) 2.3 (0.6-2.4) K/uL [place] # (Auto) 0.5 (0.0-0.8) K/uL Eos # (Auto) 0.0 (0.0-0.7) K/uL Baso # (Auto) 0.0 (0.0-0.1) K/uL Nucleated RBC % 0.0 /100WBC Nucleated RBCs # 0 K/uL Sodium (136-146) mmol/L Potassium (3.5-5.1) mmol/L Chloride (98-110) mmol/L Carbon Dioxide (21-31) mmol/L BUN (6.0-23.0) mg/dL Creatinine (0.6-1.5) mg/dL Est Cr Clr Drug Dosing mL/min Estimated GFR (MDRD) ml/min Glucose (60-110) mg/dL POC Glucose 172 H 137 H (60-110) mg/dL Calcium (8.8-10.8) mg/dL 06/20/17 06/20/17 Range/Units 10:35 11:43 WBC (4.0-11.0) K/uL RBC (4.30-5.90) M/uL Hgb (12.0-16.0) g/dL Hct (36.0-46.0) % MCV (80.0-98.0) fL MCH (27.0-32.0) pg MCHC (31.0-37.0) g/dL RDW Std Deviation (28.0-62.0) fl RDW Coeff of [place] (11.0-15.0) % Plt Count (150-400) K/uL MPV (7.40-12.00) fL Neut % (Auto) (48.0-80.0) % Lymph % (Auto) (16.0-40.0) % [place] % (Auto) (0.0-15.0) % Eos % (Auto) (0.0-7.0) % Baso % (Auto) (0.0-1.5) % Neut # (Auto) (1.4-5.7) K/uL Lymph # (Auto) (0.6-2.4) K/uL [place] # (Auto) (0.0-0.8) K/uL Eos # (Auto) (0.0-0.7) K/uL Baso # (Auto) (0.0-0.1) K/uL Nucleated RBC % /100WBC Nucleated RBCs # K/uL Sodium 140 (136-146) mmol/L Potassium 3.6 (3.5-5.1) mmol/L Chloride 108 (98-110) mmol/L Carbon Dioxide 23 (21-31) mmol/L BUN 20 (6.0-23.0) mg/dL Creatinine 0.9 (0.6-1.5) mg/dL Est Cr Clr Drug Dosing 58.34 mL/min Estimated GFR (MDRD) > 60.0 ml/min Glucose 139 H (60-110) mg/dL POC Glucose 149 H (60-110) mg/dL Calcium 7.9 L (8.8-10.8) mg/dL Med Orders - Current: Current Medications Acetaminophen (Tylenol) 650 mg PO Q4H PRN PRN Reason: Pain Last Admin: 06/20/17 10:38 Dose: 650 mg Alprazolam (Xanax) 0.25 mg PO DAILY [facility] Last Admin: 06/20/17 08:58 Dose: 0.25 mg Atorvastatin Calcium (Lipitor) 80 mg PO BEDTIME [facility] Last Admin: 06/19/17 20:00 Dose: 80 mg Benzonatate (Tessalon Perles) 200 mg PO BID PRN PRN Reason: Cough Last Admin: 06/19/17 16:24 Dose: 200 mg Ciprofloxacin (Ciprofloxacin Hcl) 500 mg PO BID [facility] Last Admin: 06/20/17 08:58 Dose: 500 mg Clopidogrel Bisulfate (Plavix) 75 mg PO DAILY [facility] Last Admin: 06/20/17 08:58 Dose: 75 mg Enoxaparin Sodium (Lovenox) 40 mg SUBCUT Q24H [facility] Last Admin: 06/19/17 16:25 Dose: 40 mg Famotidine (Pepcid) 20 mg PO BID [facility] Last Admin: 06/20/17 08:58 Dose: 20 mg Gemfibrozil (Lopid) 600 mg PO BID [facility] Last Admin: 06/20/17 08:58 Dose: 600 mg Sodium Chloride (Normal Saline) 1,000 mls @ 50 mls/hr IV ASDIRECTED [facility] Last Admin: 06/19/17 09:00 Dose: 50 mls/hr Sodium Chloride (Normal Saline) 1,000 mls @ 10 mls/hr IV ASDIRECTED [facility] Last Admin: 06/19/17 11:40 Dose: 10 mls/hr Insulin Aspart (Novolog) 0 unit SUBCUT QIDACANDBED [facility] PRN Reason: Protocol Last Admin: 06/20/17 12:04 Dose: Not Given Insulin Glargine (Lantus Solostar) 50 units SUBCUT BEDTIME [facility] Last Admin: 06/19/17 21:55 Dose: 50 units Losartan Potassium (Cozaar) 25 mg PO DAILY [facility] Last Admin: 06/20/17 09:05 Dose: 25 mg Meclizine HCl (Antivert) 12.5 mg PO TID PRN PRN Reason: Dizziness Last Admin: 06/18/17 18:21 Dose: 12.5 mg Melatonin (Melatonin) 3 mg PO DAILY [facility] Last Admin: 06/20/17 09:05 Dose: Not Given Nitroglycerin (Nitrostat) 0.4 mg SL Q5M PRN PRN Reason: Chest Pain Ondansetron HCl (Zofran) 4 mg PO ONETIME PRN PRN Reason: Nausea Oseltamivir Phosphate (Tamiflu) 75 mg PO BID [facility] Last Admin: 06/20/17 08:58 Dose: 75 mg Oxycodone HCl (Oxycodone) 5 mg PO DAILY [facility] Last Admin: 06/20/17 09:05 Dose: Not Given Desvenlafaxine [ (Pristiq] 100 Mg) 1 each PO DAILY [facility] Last Admin: 06/20/17 10:38 Dose: Not Given Prednisone (Prednisone) 60 mg PO DAILY [facility] Last Admin: 06/20/17 08:58 Dose: 60 mg Senna/Docusate Sodium (Senna Plus) 2 tab PO BEDTIME [facility] Last Admin: 06/19/17 20:00 Dose: 2 tab Discontinued Medications Calcium Carbonate/Glycine (Tums) 1,000 mg PO ONETIME ONE Stop: 06/19/17 12:04 Last Admin: 06/19/17 12:15 Dose: 1,000 mg Sodium Chloride (Normal Saline) 1,000 mls @ 125 mls/hr IV STAT [facility] Last Admin: 06/18/17 15:58 Dose: 125 mls/hr Insulin Aspart (Novolog) 0 unit SUBCUT QIDACANDBED [facility] PRN Reason: Protocol Insulin Aspart (Novolog) 20 unit SUBCUT ONETIME ONE Stop: 06/19/17 17:56 Last Admin: 06/19/17 18:03 Dose: 20 units Potassium Chloride (Klor-Con M20) 40 meq PO ONETIME ONE Stop: 06/19/17 08:43 Last Admin: 06/19/17 09:04 Dose: 40 meq - Exam General: Alert, Cooperative HEENT: Mucous Membr. Moist/[place], Other (atraumatic) Neck: Supple Lungs: Clear to Auscultation, Normal Respiratory Effort Cardiovascular: Regular Rate, Regular Rhythm GI/Abdominal Exam: Soft, Non-Tender Extremities: Normal Inspection, Non-Tender, No Pedal Edema. No: Joint Swelling , Arm Pain Skin: Warm, Dry, Intact Neurological: No New Focal Deficit, Normal Speech, Strength Equal Bilateral - Problem List Review Problem List Initiated/Reviewed/Updated: Yes - My Orders Last 24 Hours: My Active Orders 06/20/17 15:01 Head wo Cont [CT] Routine 06/21/17 05:11 BASIC METABOLIC PANEL,BMP [CHEM] AM CBC WITH AUTO DIFF [HEME] AM 06/22/17 05:11 BASIC METABOLIC PANEL,BMP [CHEM] AM CBC WITH AUTO DIFF [HEME] AM - Plan Plan:: 67-year-old female admitted 06/18/17 for dehydration secondary to influenza and UTI with past medical history of CAD, CABG, CHF, type 2 diabetes, 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 Influenza: continue tamiflu UTI: continue ciprofloxacin Type 2 diabetes: Stable. Continue insulin sliding scale high dose CAD, CABG, CHF: Currently stable have resumed home medications and will monitor closely. VTE: Lovenox, SCD Dispo: 1-2 days pending improvement in fatigue and weakness.
[2017-06-20] MEDS: Enoxaparin 40 MG/0.4 ML Syringe SUBCUT SCH (16:49)
[2017-06-20] MEDS: atorvaSTATin 40 MG Tab PO SCH (21:02)
[2017-06-20] MEDS: Benzonatate 100 MG Cap PO PRN (21:02)
[2017-06-20] MEDS: Insulin Glargine,Human Rec. Analog 100 Units/ML 3 ML Pen SUBCUT SCH (22:00)
[2017-06-21 06:40] LABS: CHLORIDE,CL 108 mmol/L (98-110); SODIUM,NA 141 mmol/L (136-146)
[2017-06-21] MEDS: Insulin Aspart 100 Units/ML 3 ML Pen SUBCUT SCH ×4 (06:52→22:54)
[2017-06-21] MEDS: Acetaminophen 325 MG Tab PO PRN ×3 (08:09→22:56)
[2017-06-21] MEDS: Gemfibrozil 600 MG Tab PO SCH ×2 (08:49→22:01)
[2017-06-21] MEDS: Oseltamivir 75 MG Cap PO SCH ×2 (08:50→22:01)
[2017-06-21] MEDS: predniSONE 20 MG Tab PO SCH (08:50)
[2017-06-21] MEDS: Famotidine 20 MG Tab PO SCH ×2 (08:50→22:01)
[2017-06-21] MEDS: Ciprofloxacin 500 MG Tab PO SCH ×2 (08:50→22:01)
[2017-06-21] MEDS: ALPRAZolam 0.25 MG Tab PO SCH (08:50)
[2017-06-21] MEDS: Losartan 50 MG Tab PO SCH (08:51)
[2017-06-21] MEDS: Clopidogrel 75 MG Tab PO SCH (08:51)
[2017-06-21] MEDS: oxyCODONE 5 MG Tab PO SCH (08:54)
[2017-06-21] MEDS: Melatonin 3 MG Tab PO SCH (08:55)
[2017-06-21] MEDS: Desvenlafaxine [Pristiq] 100 MG PO SCH (08:56)
[2017-06-21] MEDS ORDERED: Benzonatate 100 MG Cap PO ONE (09:24)
[2017-06-21] MEDS ORDERED: oxyCODONE 5 MG Tab PO PRN (10:01)
[2017-06-21] MEDS ORDERED: Iopamidol 755 MG/ML 200 ML Multipack Bottle IVPUSH ONE (12:20)
--- NOTE | 2017-06-21 12:56 | PCM.PN ---
- General Info Date of Service: 06/21/17 Subjective Update: Still complains of generalized weakness. She had a fall 2 days ago resulting in pitting her forehead. She complains of a bump on her forehead. Denies any headache, numbness or tingling, she not showing any signs of confusion. In regards to her influenza, denies any fevers chills, shortness of breath. In regards to her UTI, she tells me she still has been expressing intermittent burning on urination. Denies any flank pain. Denies any hematuria. - Review of Systems General: Reports: Other (See history of present illness) - Patient Data Vitals - Most Recent: Last Vital Signs Temp 36.6 C 06/21/17 12:03 Pulse 90 06/21/17 12:03 Resp 16 06/21/17 12:03 BP 114/68 06/21/17 12:03 Pulse Ox 96 06/21/17 07:55 Weight - Most Recent: 95 kg I&O - Last 24 Hours: Intake & Output 06/20/17 06/21/17 06/21/17 22:59 06:59 14:59 Intake Total 411 450 473 Output Total 1400 600 600 Balance -989 -150 -127 Lab Results Last 24 Hours: Laboratory Results - last 24 hr 06/20/17 06/20/17 06/21/17 Range/Units 16:37 21:56 05:58 WBC 6.03 (4.0-11.0) K/uL RBC 4.38 (4.30-5.90) M/uL Hgb 13.5 (12.0-16.0) g/dL Hct 40.7 (36.0-46.0) % MCV 92.9 (80.0-98.0) fL MCH 30.8 (27.0-32.0) pg MCHC 33.2 (31.0-37.0) g/dL RDW Std Deviation 50.3 (28.0-62.0) fl RDW Coeff of Aranza 15 (11.0-15.0) % Plt Count 170 (150-400) K/uL MPV 10.20 (7.40-12.00) fL Neut % (Auto) 41.8 L (48.0-80.0) % Lymph % (Auto) 49.9 H (16.0-40.0) % [place] % (Auto) 7.8 (0.0-15.0) % Eos % (Auto) 0.3 (0.0-7.0) % Baso % (Auto) 0.2 (0.0-1.5) % Neut # (Auto) 2.5 (1.4-5.7) K/uL Lymph # (Auto) 3.0 H (0.6-2.4) K/uL [place] # (Auto) 0.5 (0.0-0.8) K/uL Eos # (Auto) 0.0 (0.0-0.7) K/uL Baso # (Auto) 0.0 (0.0-0.1) K/uL Nucleated RBC % 0.0 /100WBC Nucleated RBCs # 0 K/uL Sodium (136-146) mmol/L Potassium (3.5-5.1) mmol/L Chloride (98-110) mmol/L Carbon Dioxide (21-31) mmol/L BUN (6.0-23.0) mg/dL Creatinine (0.6-1.5) mg/dL Est Cr Clr Drug Dosing mL/min Estimated GFR (MDRD) ml/min Glucose (60-110) mg/dL POC Glucose 410 H 263 H (60-110) mg/dL Calcium (8.8-10.8) mg/dL 06/21/17 06/21/17 06/21/17 Range/Units 05:58 06:03 11:52 WBC (4.0-11.0) K/uL RBC (4.30-5.90) M/uL Hgb (12.0-16.0) g/dL Hct (36.0-46.0) % MCV (80.0-98.0) fL MCH (27.0-32.0) pg MCHC (31.0-37.0) g/dL RDW Std Deviation (28.0-62.0) fl RDW Coeff of Aranza (11.0-15.0) % Plt Count (150-400) K/uL MPV (7.40-12.00) fL Neut % (Auto) (48.0-80.0) % Lymph % (Auto) (16.0-40.0) % [place] % (Auto) (0.0-15.0) % Eos % (Auto) (0.0-7.0) % Baso % (Auto) (0.0-1.5) % Neut # (Auto) (1.4-5.7) K/uL Lymph # (Auto) (0.6-2.4) K/uL [place] # (Auto) (0.0-0.8) K/uL Eos # (Auto) (0.0-0.7) K/uL Baso # (Auto) (0.0-0.1) K/uL Nucleated RBC % /100WBC Nucleated RBCs # K/uL Sodium 141 (136-146) mmol/L Potassium 3.5 (3.5-5.1) mmol/L Chloride 108 (98-110) mmol/L Carbon Dioxide 25 (21-31) mmol/L BUN 26 H (6.0-23.0) mg/dL Creatinine 0.9 (0.6-1.5) mg/dL Est Cr Clr Drug Dosing 58.34 mL/min Estimated GFR (MDRD) > 60.0 ml/min Glucose 120 H (60-110) mg/dL POC Glucose 109 175 H (60-110) mg/dL Calcium 8.3 L (8.8-10.8) mg/dL Med Orders - Current: Current Medications Acetaminophen (Tylenol) 650 mg PO Q4H PRN PRN Reason: Pain Last Admin: 06/21/17 08:09 Dose: 650 mg Alprazolam (Xanax) 0.25 mg PO DAILY [facility] Last Admin: 06/21/17 08:50 Dose: 0.25 mg Atorvastatin Calcium (Lipitor) 80 mg PO BEDTIME [facility] Last Admin: 06/20/17 21:02 Dose: 80 mg Benzonatate (Tessalon Perles) 200 mg PO BID PRN PRN Reason: Cough Last Admin: 06/20/17 21:02 Dose: 200 mg Ciprofloxacin (Ciprofloxacin Hcl) 500 mg PO BID [facility] Last Admin: 06/21/17 08:50 Dose: 500 mg Clopidogrel Bisulfate (Plavix) 75 mg PO DAILY [facility] Last Admin: 06/21/17 08:51 Dose: 75 mg Enoxaparin Sodium (Lovenox) 40 mg SUBCUT Q24H [facility] Last Admin: 06/20/17 16:49 Dose: 40 mg Famotidine (Pepcid) 20 mg PO BID [facility] Last Admin: 06/21/17 08:50 Dose: 20 mg Gemfibrozil (Lopid) 600 mg PO BID [facility] Last Admin: 06/21/17 08:49 Dose: 600 mg Insulin Aspart (Novolog) 0 unit SUBCUT QIDACANDBED [facility] PRN Reason: Protocol Last Admin: 06/21/17 11:55 Dose: 3 unit Insulin Glargine (Lantus Solostar) 50 units SUBCUT BEDTIME [facility] Last Admin: 06/20/17 22:00 Dose: 50 units Losartan Potassium (Cozaar) 25 mg PO DAILY [facility] Last Admin: 06/21/17 08:51 Dose: 25 mg Meclizine HCl (Antivert) 12.5 mg PO TID PRN PRN Reason: Dizziness Last Admin: 06/18/17 18:21 Dose: 12.5 mg Melatonin (Melatonin) 3 mg PO DAILY [facility] Last Admin: 06/21/17 08:55 Dose: Not Given Nitroglycerin (Nitrostat) 0.4 mg SL Q5M PRN PRN Reason: Chest Pain Ondansetron HCl (Zofran) 4 mg PO ONETIME PRN PRN Reason: Nausea Oseltamivir Phosphate (Tamiflu) 75 mg PO BID [facility] Last Admin: 06/21/17 08:50 Dose: 75 mg Oxycodone HCl (Oxycodone) 5 mg PO DAILY PRN PRN Reason: Pain Desvenlafaxine [ (Pristiq] 100 Mg) 1 each PO DAILY [facility] Last Admin: 06/21/17 08:56 Dose: Not Given Prednisone (Prednisone) 60 mg PO DAILY [facility] Last Admin: 06/21/17 08:50 Dose: 60 mg Senna/Docusate Sodium (Senna Plus) 2 tab PO BEDTIME [facility] Last Admin: 06/20/17 21:03 Dose: 2 tab Discontinued Medications Benzonatate (Tessalon Perles) 200 mg PO ONETIME ONE Stop: 06/21/17 09:25 Last Admin: 06/21/17 10:02 Dose: 200 mg Calcium Carbonate/Glycine (Tums) 1,000 mg PO ONETIME ONE Stop: 06/19/17 12:04 Last Admin: 06/19/17 12:15 Dose: 1,000 mg Sodium Chloride (Normal Saline) 1,000 mls @ 125 mls/hr IV STAT [facility] Last Admin: 06/18/17 15:58 Dose: 125 mls/hr Sodium Chloride (Normal Saline) 1,000 mls @ 50 mls/hr IV ASDIRECTED [facility] Last Admin: 06/19/17 09:00 Dose: 50 mls/hr Sodium Chloride (Normal Saline) 1,000 mls @ 10 mls/hr IV ASDIRECTED [facility] Last Admin: 06/19/17 11:40 Dose: 10 mls/hr Insulin Aspart (Novolog) 0 unit SUBCUT QIDACANDBED [facility] PRN Reason: Protocol Insulin Aspart (Novolog) 20 unit SUBCUT ONETIME ONE Stop: 06/19/17 17:56 Last Admin: 06/19/17 18:03 Dose: 20 units Iopamidol (Isovue Multipack-370 (76%)) 50 ml IVPUSH ONETIME ONE Stop: 06/21/17 12:21 Last Admin: 06/21/17 12:21 Dose: 50 ml Oxycodone HCl (Oxycodone) 5 mg PO DAILY [facility] Last Admin: 06/21/17 08:54 Dose: Not Given Potassium Chloride (Klor-Con M20) 40 meq PO ONETIME ONE Stop: 06/19/17 08:43 Last Admin: 06/19/17 09:04 Dose: 40 meq - Exam General: Alert, Oriented, Cooperative HEENT: Pupils Equal Neck: Supple, Trachea Midline Lungs: Clear to Auscultation, Normal Respiratory Effort Cardiovascular: Regular Rate, Regular Rhythm GI/Abdominal Exam: Normal Bowel Sounds, Soft Extremities: Normal Inspection, Normal Range of Motion Peripheral Pulses: 3+: Posterior Tibial (L), Posterior Tibial (R) Skin: Warm Psy/Mental Status: Alert, Normal Affect, Normal Mood - Problem List Review Problem List Initiated/Reviewed/Updated: Yes - My Orders Last 24 Hours: My Active Orders 06/21/17 10:01 oxyCODONE 5 mg PO DAILY PRN 06/21/17 12:45 Admission Status [Patient Status] [ADT] Routine - Plan Plan:: 67-year-old female admitted 06/18/17 for dehydration secondary to influenza and UTI with past medical history of CAD, CABG, CHF, type 2 diabetes, 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 Influenza: continue tamiflu UTI: continue ciprofloxacin Type 2 diabetes: Stable. Continue insulin sliding scale high dose CAD, CABG, CHF: Currently stable have resumed home medications and will monitor closely. VTE: Lovenox, SCD Dispo: 1-2 days pending improvement in fatigue and weakness. Assessment: #1. Influenza #2. Worsening Ambulatory dysfunction #3. Urinary tract infection #4. History of brain lesions status post biopsy and being placed on chronic steroid use #5. Recent fall Plan: #1. Continue Tamiflu, ciprofloxacin for ongoing infection #2. In regards to her laboratory dysfunction, there is concern about this patient is discharged back to home as she lives by herself. Also, given that her dizziness appears to have gotten worse since her hospital stay, we will get a CT scan with and without contrast to assess if there are any new acute findings in regards to her brain lesions, we can also use this to rule out a bleed status post fall although unlikely given how long it's been since her fall now. #3. Family agrees to [place] placement on discharge. #4. After the CT results are back, we will touch base with neurology for further recommendations. Anticipate discharge tomorrow.
--- NOTE | 2017-06-21 13:09 | CT ---
MRI brain scan Clinical history: Previous fall with dizziness and prior posterior fossa surgery Comparison: Prior MRI scan from 13 November 2016 Findings: Since the prior examination there has been posterior fossa craniotomy performed. 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 There is a nidus of enhancement at the dur a in this location of indeterminate nature and felt likely to be benign. This was present preoperativ senait. There is no evidence on the contrast-enhanced portion after 50 mL of Isovue-370 of any enhancement in the left side of the brainstem at the site of prior stated surgery. Previous examination revealed an enhancing lesion to the left of midline. There is is no current evidence of hydrocephalus or new mass edema hemorrhage or space-occupying abno rmality within the brain. Impression: Interval posterior fossa craniotomy with small pseudomeningocele. No residual enhancing l esion in the brainstem. No acute mass edema hemorrhage or space occupying abnormality since prior omer dy in the wake of recent fall
[2017-06-21] MEDS: Enoxaparin 40 MG/0.4 ML Syringe SUBCUT SCH (16:03)
[2017-06-21] MEDS ORDERED: Sodium Chloride 0.9% 500 ML IV SCH (16:30)
[2017-06-21] MEDS ORDERED: Gadobenate Dimeglumine 529 MG/ML 20 ML SDV IVPUSH STA (20:47)
[2017-06-21] MEDS: atorvaSTATin 40 MG Tab PO SCH (22:00)
[2017-06-21] MEDS: Insulin Glargine,Human Rec. Analog 100 Units/ML 3 ML Pen SUBCUT SCH (22:52)
[2017-06-22 05:52] LABS: CHLORIDE,CL 109 mmol/L (98-110); SODIUM,NA 144 mmol/L (136-146)
[2017-06-22] MEDS: Insulin Aspart 100 Units/ML 3 ML Pen SUBCUT SCH ×4 (07:44→20:56)
[2017-06-22] MEDS: Clopidogrel 75 MG Tab PO SCH (08:03)
[2017-06-22] MEDS: Melatonin 3 MG Tab PO SCH (08:04)
[2017-06-22] MEDS: Ciprofloxacin 500 MG Tab PO SCH ×2 (08:04→20:43)
[2017-06-22] MEDS: Gemfibrozil 600 MG Tab PO SCH ×2 (08:04→20:44)
[2017-06-22] MEDS: predniSONE 20 MG Tab PO SCH (08:04)
[2017-06-22] MEDS: ALPRAZolam 0.25 MG Tab PO SCH (08:05)
[2017-06-22] MEDS: Losartan 50 MG Tab PO SCH (08:05)
[2017-06-22] MEDS: Oseltamivir 75 MG Cap PO SCH ×2 (08:05→20:44)
[2017-06-22] MEDS: Famotidine 20 MG Tab PO SCH ×2 (08:05→20:43)
[2017-06-22] MEDS: Desvenlafaxine [Pristiq] 100 MG PO SCH (08:06)
--- NOTE | 2017-06-22 11:17 | MR ---
EXAM DATE: 06/21/17 PATIENT'S AGE: 67 Patient: CLARICE ISAACS Facility: [place], [place] Site . Site : 1950 Study: MRI Spine Cervical [id number] 10:26:15 PM Ordering Physician: Mp Trujillo Final Report: INDICATION: Worsening dizziness, history of brainstem lesions. TECHNIQUE: Sagittal T2, T1, STIR, axial gradient echo, axial 3D T2, postcontrast T1 and sagittal T1 fat suppressed images of the cervical spine. COMPARISON: 09/11/2016 MR cervical spine. FINDINGS: Postsurgical changes consistent with suboccipital craniotomy are noted. There is a 5.7 x 2.9 x 1.4 cm collection at the surgical site which likely represents a postoperative collection/seroma however a pseudomeningocele cannot be entirely excluded. The known lesion in the left lateral and dorsal lateral medulla is better characterized on the MRI performed on the same day. The craniocervical junction is unremarkable. There is accentuation of normal cervical lordosis. Vertebral body heights are maintained. No aggressive osseous lesions are identified. There is no prevertebral or paraspinal swelling to suggest acute ligamentous or soft tissue injury. There is no abnormal intramedullary spinal cord enhancement.Findings at individual levels are noted as follows: At C2-C3 there is no significant spinal canal stenosis or neural foramen narrowing. At C3-C4 there is no significant spinal canal stenosis or neural foramen narrowing. At C4-5 there is a shallow disc bulge which indents the thecal sac but does not result in significant spinal canal stenosis. No neural foramen narrowing. At C5-C6 there is a disc bulge which indents the thecal sac results in mild canal stenosis. No neural foramen narrowing. At C6-C7 there is a mild disc bulge which indents the thecal sac results in mild canal stenosis. No significant neural foramen narrowing. At C7-T1 there is no significant spinal canal stenosis or neural foramen narrowing. IMPRESSION: 1. Postsurgical changes consistent with suboccipital craniotomy. 2. There is a 5.7 x 2.9 cm T2 hyperintense structure at the operative site which likely represents a postoperative seroma however a pseudomeningocele cannot be entirely excluded. 3. Accentuated lordosis of the cervical spine alignment. Mild disc bulges and ligamentum flavum buckling results in minimal spinal canal stenosis at C4-5, C5- 6, C6-7. 4. No high-grade spinal canal stenosis or neural foramen narrowing. 5. No abnormal intramedullary spinal cord signal. 6. The known lesion in the left lateral and dorsal lateral medulla is better characterized on the MRI performed on the same day. Dictated by Abel Gallo MD @ Jun 22 2017 8:25AM (Electronic Signature) Report Signed by Proxy. PATRICK
--- NOTE | 2017-06-22 11:18 | MR ---
EXAM DATE: 06/21/17 PATIENT'S AGE: 67 Patient: CLARICE ISAACS Facility: [place], [place] Site . Site : 1950 Study: MRI Head W/ and W/O Cont [id number]/29/[id number] 10:26:57 PM Ordering Physician: Mp Trujillo Final Report: Indication: Worsening dizziness, history of brainstem lesions. Technique: Noncontrast sagittal T1, axial FLAIR, T2 ENMANUEL, diffusion weighted images, with supplemental post contrast T1 weighted axial and coronal sequences are provided after administration of 17 mL MultiHance IV contrast. Comparison: 11/13/2016 MRI brain Findings: Postsurgical changes consistent with suboccipital craniotomy are noted. No diffusion restriction to suggest acute infarct. A few foci of T2 prolongation and T2 shine-through in the left frontoparietal region probably represent old infarcts that are new in the interim (image 21 series 201). Other small foci T2 prolongation in the periventricular white matter likely represent chronic small vessel white matter disease, unchanged. Slight decrease in size of the T2 hyperintense nonenhancing signal abnormality in the left lateral and dorsolateral medulla. The dorsolateral lesion measures 8 x 8 mm previously 10 x 10 mm. No new lesions are identified. The midline structures are centrally located with no evidence of shift. There are no suspicious intra or extra-axial fluid collections. A focus of blooming susceptibility artifact in the left aspect of the posterior fossa likely represents old blood products from prior microhemorrhage or cavernoma No abnormal contrast enhancement involving the brain parenchyma, meninges, calvarium or skull base. Expected flow voids in the cavernous carotids and basilar artery. There is similar hyperostosis frontalis internus and mild thickening of calvarial bone marrow. There is mild mucosal thickening in the maxillary sinuses , right greater than left. Impression: 1. No diffusion restriction to suggest acute infarct. 2. A few foci of T2 prolongation and T2 shine-through in the left frontal and parietal lobes probably represent subacute-chronic infarcts, new compared to . 3. Slight decrease in size of the T2 hyperintense nonenhancing signal abnormality in the left lateral and dorsolateral medulla. The dorsolateral lesion measures 8 x 8 mm previously 10 x 10 mm.The differential includes primary neoplasm such as an infiltrating glioma versus metastasis. Inflammatory etiologies less likely. Dictated by Abel Gallo MD @ Jun 22 2017 8:02AM (Electronic Signature) Report Signed by Proxy. PATRICK
--- NOTE | 2017-06-22 14:14 | PCM.PN ---
- General Info Date of Service: 06/22/17 Subjective Update: Patient states that she feels much better than before. Physical therapy has been helping her with evaluation treatment for her ambulatory dysfunction. Dizziness remains but this is a chronic finding. No change from baseline. I went over the MRI with the patient. Patient has no other concerns at this time or any complaints. Denies any chest pain, shortness of breath, fevers or chills , nausea or vomiting. - Review of Systems General: Reports: Other (See history of present illness) - Patient Data Vitals - Most Recent: Last Vital Signs Temp 36.1 C 06/22/17 11:40 Pulse 97 06/22/17 11:40 Resp 22 H 06/22/17 11:40 BP 136/80 06/22/17 11:40 Pulse Ox 93 L 06/22/17 11:40 Weight - Most Recent: 95 kg I&O - Last 24 Hours: Intake & Output 06/21/17 06/22/17 06/22/17 22:59 06:59 14:59 Intake Total 900 Output Total 1750 Balance -850 Lab Results Last 24 Hours: Laboratory Results - last 24 hr 06/21/17 06/21/17 06/22/17 Range/Units 17:03 22:43 04:25 WBC 7.62 (4.0-11.0) K/uL RBC 4.33 (4.30-5.90) M/uL Hgb 13.5 (12.0-16.0) g/dL Hct 40.1 (36.0-46.0) % MCV 92.6 (80.0-98.0) fL MCH 31.2 (27.0-32.0) pg MCHC 33.7 (31.0-37.0) g/dL RDW Std Deviation 50.1 (28.0-62.0) fl RDW Coeff of Aranza 15 (11.0-15.0) % Plt Count 181 (150-400) K/uL MPV 10.10 (7.40-12.00) fL Neut % (Auto) 55.7 (48.0-80.0) % Lymph % (Auto) 36.6 (16.0-40.0) % [place] % (Auto) 7.5 (0.0-15.0) % Eos % (Auto) 0.1 (0.0-7.0) % Baso % (Auto) 0.1 (0.0-1.5) % Neut # (Auto) 4.2 (1.4-5.7) K/uL Lymph # (Auto) 2.8 H (0.6-2.4) K/uL [place] # (Auto) 0.6 (0.0-0.8) K/uL Eos # (Auto) 0.0 (0.0-0.7) K/uL Baso # (Auto) 0.0 (0.0-0.1) K/uL Nucleated RBC % 0.0 /100WBC Nucleated RBCs # 0 K/uL Sodium (136-146) mmol/L Potassium (3.5-5.1) mmol/L Chloride (98-110) mmol/L Carbon Dioxide (21-31) mmol/L BUN (6.0-23.0) mg/dL Creatinine (0.6-1.5) mg/dL Est Cr Clr Drug Dosing mL/min Estimated GFR (MDRD) ml/min Glucose (60-110) mg/dL POC Glucose 318 H 333 H (60-110) mg/dL Calcium (8.8-10.8) mg/dL 06/22/17 06/22/17 06/22/17 Range/Units 04:25 06:47 10:56 WBC (4.0-11.0) K/uL RBC (4.30-5.90) M/uL Hgb (12.0-16.0) g/dL Hct (36.0-46.0) % MCV (80.0-98.0) fL MCH (27.0-32.0) pg MCHC (31.0-37.0) g/dL RDW Std Deviation (28.0-62.0) fl RDW Coeff of [place] (11.0-15.0) % Plt Count (150-400) K/uL MPV (7.40-12.00) fL Neut % (Auto) (48.0-80.0) % Lymph % (Auto) (16.0-40.0) % [place] % (Auto) (0.0-15.0) % Eos % (Auto) (0.0-7.0) % Baso % (Auto) (0.0-1.5) % Neut # (Auto) (1.4-5.7) K/uL Lymph # (Auto) (0.6-2.4) K/uL [place] # (Auto) (0.0-0.8) K/uL Eos # (Auto) (0.0-0.7) K/uL Baso # (Auto) (0.0-0.1) K/uL Nucleated RBC % /100WBC Nucleated RBCs # K/uL Sodium 144 (136-146) mmol/L Potassium 3.6 (3.5-5.1) mmol/L Chloride 109 (98-110) mmol/L Carbon Dioxide 25 (21-31) mmol/L BUN 21 (6.0-23.0) mg/dL Creatinine 0.8 (0.6-1.5) mg/dL Est Cr Clr Drug Dosing 64.99 mL/min Estimated GFR (MDRD) > 60.0 ml/min Glucose 144 H (60-110) mg/dL POC Glucose 74 296 H (60-110) mg/dL Calcium 8.4 L (8.8-10.8) mg/dL Med Orders - Current: Current Medications Acetaminophen (Tylenol) 650 mg PO Q4H PRN PRN Reason: Pain Last Admin: 06/21/17 22:56 Dose: 650 mg Alprazolam (Xanax) 0.25 mg PO DAILY [facility] Last Admin: 06/22/17 08:05 Dose: 0.25 mg Atorvastatin Calcium (Lipitor) 80 mg PO BEDTIME [facility] Last Admin: 06/21/17 22:00 Dose: 80 mg Benzonatate (Tessalon Perles) 200 mg PO BID PRN PRN Reason: Cough Last Admin: 06/20/17 21:02 Dose: 200 mg Ciprofloxacin (Ciprofloxacin Hcl) 500 mg PO BID [facility] Last Admin: 06/22/17 08:04 Dose: 500 mg Clopidogrel Bisulfate (Plavix) 75 mg PO DAILY [facility] Last Admin: 06/22/17 08:03 Dose: 75 mg Enoxaparin Sodium (Lovenox) 40 mg SUBCUT Q24H [facility] Last Admin: 06/21/17 16:03 Dose: 40 mg Famotidine (Pepcid) 20 mg PO BID [facility] Last Admin: 06/22/17 08:05 Dose: 20 mg Gemfibrozil (Lopid) 600 mg PO BID [facility] Last Admin: 06/22/17 08:04 Dose: 600 mg Sodium Chloride (Normal Saline) 500 mls @ 999 mls/hr IV STAT [facility] Last Admin: 06/21/17 17:59 Dose: 999 mls/hr Insulin Aspart (Novolog) 0 unit SUBCUT QIDACANDBED [facility] PRN Reason: Protocol Last Admin: 06/22/17 11:02 Dose: 9 units Insulin Glargine (Lantus Solostar) 50 units SUBCUT BEDTIME [facility] Last Admin: 06/21/17 22:52 Dose: 50 units Losartan Potassium (Cozaar) 25 mg PO DAILY [facility] Last Admin: 06/22/17 08:05 Dose: 25 mg Meclizine HCl (Antivert) 12.5 mg PO TID PRN PRN Reason: Dizziness Last Admin: 06/18/17 18:21 Dose: 12.5 mg Melatonin (Melatonin) 3 mg PO DAILY [facility] Last Admin: 06/22/17 08:04 Dose: Not Given Nitroglycerin (Nitrostat) 0.4 mg SL Q5M PRN PRN Reason: Chest Pain Ondansetron HCl (Zofran) 4 mg PO ONETIME PRN PRN Reason: Nausea Oseltamivir Phosphate (Tamiflu) 75 mg PO BID [facility] Last Admin: 06/22/17 08:05 Dose: 75 mg Oxycodone HCl (Oxycodone) 5 mg PO DAILY PRN PRN Reason: Pain Desvenlafaxine [ (Pristiq] 100 Mg) 1 each PO DAILY [facility] Last Admin: 06/22/17 08:06 Dose: Not Given Prednisone (Prednisone) 60 mg PO DAILY [facility] Last Admin: 06/22/17 08:04 Dose: 60 mg Senna/Docusate Sodium (Senna Plus) 2 tab PO BEDTIME [facility] Last Admin: 06/21/17 22:00 Dose: 2 tab Discontinued Medications Benzonatate (Tessalon Perles) 200 mg PO ONETIME ONE Stop: 06/21/17 09:25 Last Admin: 06/21/17 10:02 Dose: 200 mg Calcium Carbonate/Glycine (Tums) 1,000 mg PO ONETIME ONE Stop: 06/19/17 12:04 Last Admin: 06/19/17 12:15 Dose: 1,000 mg Gadobenate Dimeglumine (Multihance) 20 ml IVPUSH ONETIME STA Stop: 06/21/17 20:48 Last Admin: 06/21/17 20:48 Dose: 17 ml Sodium Chloride (Normal Saline) 1,000 mls @ 125 mls/hr IV STAT [facility] Last Admin: 06/18/17 15:58 Dose: 125 mls/hr Sodium Chloride (Normal Saline) 1,000 mls @ 50 mls/hr IV ASDIRECTED [facility] Last Admin: 06/19/17 09:00 Dose: 50 mls/hr Sodium Chloride (Normal Saline) 1,000 mls @ 10 mls/hr IV ASDIRECTED [facility] Last Admin: 06/19/17 11:40 Dose: 10 mls/hr Insulin Aspart (Novolog) 0 unit SUBCUT QIDACANDBED [facility] PRN Reason: Protocol Insulin Aspart (Novolog) 20 unit SUBCUT ONETIME ONE Stop: 06/19/17 17:56 Last Admin: 06/19/17 18:03 Dose: 20 units Iopamidol (Isovue Multipack-370 (76%)) 50 ml IVPUSH ONETIME ONE Stop: 06/21/17 12:21 Last Admin: 06/21/17 12:21 Dose: 50 ml Oxycodone HCl (Oxycodone) 5 mg PO DAILY [facility] Last Admin: 06/21/17 08:54 Dose: Not Given Potassium Chloride (Klor-Con M20) 40 meq PO ONETIME ONE Stop: 06/19/17 08:43 Last Admin: 06/19/17 09:04 Dose: 40 meq - Exam General: Alert, Oriented, Cooperative, No Acute Distress HEENT: Pupils Equal, Pupils Reactive Neck: Supple Lungs: Clear to Auscultation, Normal Respiratory Effort Cardiovascular: Regular Rate, Regular Rhythm GI/Abdominal Exam: Normal Bowel Sounds, Soft, Non-Tender Extremities: Normal Inspection, Non-Tender Skin: Warm Psy/Mental Status: Alert, Normal Affect, Normal Mood - Problem List Review Problem List Initiated/Reviewed/Updated: Yes - My Orders Last 24 Hours: My Active Orders 06/21/17 14:22 PT Evaluation and Treatment [CONS] Routine 06/21/17 16:19 Brain w Cont [MR] Routine Cervical Spine Comp w Cont [MR] Urgent 06/21/17 16:30 Sodium Chloride 0.9% [Normal Saline] 500 ml IV STAT - Plan Plan:: Assessment: #1. Influenza with resolved symptoms #2. Ambulatory dysfunction back to baseline #3. Urinary tract infection #4. History of brain lesions status post biopsy and being placed on chronic steroid use #5. 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 Recent fall Plan: #1. Continue Tamiflu, ciprofloxacin for ongoing infection #2. Continue working with PT #3. I went over the MRI results with the patient along with touching base with her neurologist, Dr. Crowley. It was advised by the neurologist that upon discharge, she needs to get a closer follow-up with her providers at [place]. There is no more that can be offered to her for her ongoing chronic conditions here in [place]. We will arrange a follow-up appointment with Dr. Crowley and advise the patient of this as well. In regards to her subacute to chronic infarcts, she is [place] on Plavix and a full dose statin so we will keep medical therapy unchanged.
[2017-06-22] MEDS: Acetaminophen 325 MG Tab PO PRN (15:23)
[2017-06-22] MEDS: Enoxaparin 40 MG/0.4 ML Syringe SUBCUT SCH (15:46)
[2017-06-22] MEDS: atorvaSTATin 40 MG Tab PO SCH (20:43)
[2017-06-22] MEDS: Insulin Glargine,Human Rec. Analog 100 Units/ML 3 ML Pen SUBCUT SCH (20:59)
[2017-06-22] MEDS: Benzonatate 100 MG Cap PO PRN (21:13)
[2017-06-23 04:40] LABS: CHLORIDE,CL 106 mmol/L (98-110); SODIUM,NA 141 mmol/L (136-146)
[2017-06-23] MEDS: Acetaminophen 325 MG Tab PO PRN (07:26)
[2017-06-23] MEDS: Insulin Aspart 100 Units/ML 3 ML Pen SUBCUT SCH ×2 (07:27→12:29)
[2017-06-23] MEDS: predniSONE 20 MG Tab PO SCH (08:07)
[2017-06-23] MEDS: ALPRAZolam 0.25 MG Tab PO SCH (08:08)
[2017-06-23] MEDS: Famotidine 20 MG Tab PO SCH (08:08)
[2017-06-23] MEDS: Clopidogrel 75 MG Tab PO SCH (08:08)
[2017-06-23] MEDS: Ciprofloxacin 500 MG Tab PO SCH (08:08)
[2017-06-23] MEDS: Gemfibrozil 600 MG Tab PO SCH (08:08)
[2017-06-23] MEDS: Oseltamivir 75 MG Cap PO SCH (08:08)
[2017-06-23] MEDS: Melatonin 3 MG Tab PO SCH (08:11)
[2017-06-23 08:12] VITALS: BP 92/61
[2017-06-23] MEDS: Losartan 50 MG Tab PO SCH (08:12)
[2017-06-23] MEDS: Desvenlafaxine [Pristiq] 100 MG PO SCH (08:16)
--- NOTE | 2017-06-23 11:18 | PCM.DCSUM1 ---
<Arsh Miles - Last Filed: 06/23/17 11:22> Discharge Summary - Hospital Course Free Text/Narrative:: admission date: June 18, 2017 Discharge date: June 23, 2017 Admission diagnosis: #1. Influenza #2. Urinary tract infection #3. 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 Weakness, dizziness, chills secondary to #1 #2 #3 Discharge diagnosis: #1. Influenza Treated with improvement in symptoms #2. Urinary tract infectiontreated with improvement in symptoms #3. 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 Weakness, dizziness, chills secondary to #1 #2 #3 #5. Dizziness back to baseline Disposition: Home with home health care Need for skilled service: Physical therapy: strengthening due to weakness from recent hospitalization, generalized weakness and dizziness secondary to undiagnosed pain lesions resulting in chronic steroid therapy. gait instability resulting in the use of a walker which she already has. High fall risk. Occupational therapy: Home safety evaluation for funcnal safety at home, SS/ initiate plan for improvement of cognition issues Primary M.D. who will be following: Dr. Gonzáles, PCP Hospital course: This is a 67-year-old female with the abovened past medical history that was referred to the emergency department after failing outpatient therapy for a urinary tract infection. The patient was evaluated in the emergency department found to be influenza positive on top of the ongoing urinary tract infection. With a history of weakness, dizziness and unstable gait , the patient stated that the symptoms had worsened during her acute stats admitted for observation and treatment of the 2 infections along with physical therapy for her unstable gait and an ambulatory dysfunction. Patient was treated with Tamiflu and Levaquin. Patient made a clinical improvement in terms of her fevers and chills and feeling sick. However, patient continued to express her concern for dizziness and not feeling comfortable going home alone. She also stated that her dizziness was much worse than her baseline. She has been seeing Dr. Crowley as an outpatient multiple brain lesions and on chronic prednisone therapy. She is also following [facility] for diagnosis work up. Given the worsening cognition, an MRI of the brain/ cervical spine were ordered. 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 The case was discussed with Dr. Crowley. She recommended that given that she is on stroke prophylaxis therapy and the lack of diagnosis regarding these lesions, that a sooner appointment with [facility] is needed. She is scheduled to see [facility] in August as of now. Patient was discharged home on 1 day worth of levaquin for her UTI. She was discharged home on home health to which she agreed to. At the time of discharge, she stated that her dizziness is back to her baseline. She denied any fevers, chills, pain, nausea, vomiting. - Discharge Data Discharge Date: 06/23/17 Discharge Disposition: Home, W Home Health Agency 06 Condition: Fair - Patient Summary/Data Consults: Consultations 06/21/17 14:22 PT Evaluation and Treatment [CONS] Routine - Patient Instructions Activity: As Tolerated - Discharge Plan Prescriptions/Med Rec: Levofloxacin [Levaquin] 750 mg PO DAILY 1 Days #1 tab Home Medications: Home Meds ALPRAZolam [Xanax] 0.25 mg PO DAILY 06/18/17 [History] Ciprofloxacin [Ciprofloxacin HCl] 250 mg PO BID 06/18/17 [History] Clopidogrel [Plavix] 75 mg PO DAILY 06/18/17 [History] Desvenlafaxine [Pristiq] 100 mg PO DAILY 06/18/17 [History] Famotidine 20 mg PO BID 06/18/17 [History] Gemfibrozil 600 mg PO BID 06/18/17 [History] Insulin Aspart [NovoLOG] 15 unit SUBCUT DAILY 06/18/17 [History] Insulin Glarg,Human.Rec.Analog [Lantus] 50 units SUBCUT BEDTIME 06/18/17 [ History] Losartan [Cozaar] 25 mg PO DAILY 06/18/17 [History] Meclizine [Antivert] 12.5 mg PO TID PRN 06/18/17 [History] Melatonin 3 mg PO DAILY 06/18/17 [History] Nitroglycerin [Nitrostat] 0.4 mg SL ASDIRECTED PRN 06/18/17 [History] Ondansetron 4 mg PO ONETIME PRN 06/18/17 [History] Prednisone [IJD: predniSONE] 3 tab PO DAILY 06/18/17 [History] Sennosides/Docusate Sodium [Senna-S] 2 tab PO BEDTIME 06/18/17 [History] Sulfamethoxazole/Trimethoprim [Bactrim Ds Tablet] 1 each PO DAILY 06/18/17 [ History] atorvaSTATin [Lipitor] 80 mg PO BEDTIME 06/18/17 [History] oxyCODONE 5 mg PO DAILY 06/18/17 [History] Levofloxacin [Levaquin] 750 mg PO DAILY 1 Days #1 tab 06/23/17 [Rx] Patient Handouts: Influenza, Adult, [id number], Urinary Tract Infection, Adult, [id number], Levofloxacin tablets Referrals: Erin Crowley MD [Physician] - 08/03/17 4:00 pm Salvador Gonzáles MD [Primary Care Provider] - 06/30/17 2:00 pm - Discharge Summary/Plan Comment Discharge Summary/Plan Comment: admission date: June 18, 2017 Discharge date: June 23, 2017 Admission diagnosis: #1. Influenza #2. Urinary tract infection #3. 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 Weakness, dizziness, chills secondary to #1 #2 #3 Discharge diagnosis: #1. Influenza Treated with improvement in symptoms #2. Urinary tract infectiontreated with improvement in symptoms #3. 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 Weakness, dizziness, chills secondary to #1 #2 #3 #5. Dizziness back to baseline Disposition: Home with home health care Need for skilled service: Physical therapy: strengthening due to weakness from recent hospitalization, generalized weakness and dizziness secondary to undiagnosed pain lesions resulting in chronic steroid therapy. gait instability resulting in the use of a walker which she already has. High fall risk. Occupational therapy: Home safety evaluation for funcnal safety at home, SS/ initiate plan for improvement of cognition issues Primary M.D. who will be following: Dr. Gonzáles, PCP Hospital course: This is a 67-year-old female with the abovened past medical history that was referred to the emergency department after failing outpatient therapy for a urinary tract infection. The patient was evaluated in the emergency department found to be influenza positive on top of the ongoing urinary tract infection. With a history of weakness, dizziness and unstable gait , the patient stated that the symptoms had worsened during her acute stats admitted for observation and treatment of the 2 infections along with physical therapy for her unstable gait and an ambulatory dysfunction. Patient was treated with Tamiflu and Levaquin. Patient made a clinical improvement in terms of her fevers and chills and feeling sick. However, patient continued to express her concern for dizziness and not feeling comfortable going home alone. She also stated that her dizziness was much worse than her baseline. She has been seeing Dr. Crowley as an outpatient multiple brain lesions and on chronic prednisone therapy. She is also following [facility] for diagnosis work up. Given the worsening cognition, an MRI of the brain/ cervical spine were ordered. 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 The case was discussed with Dr. Crowley. She recommended that given that she is on stroke prophylaxis therapy and the lack of diagnosis regarding these lesions, that a sooner appointment with [facility] is needed. She is scheduled to see [facility] in August as of now. Patient was discharged home on 1 day worth of levaquin for her UTI. She was discharged home on home health to which she agreed to. At the time of discharge, she stated that her dizziness is back to her baseline. She denied any fevers, chills, pain, nausea, vomiting. - Patient Data Vitals - Most Recent: Last Vital Signs Temp 36.2 C 06/23/17 08:00 Pulse 101 H 06/23/17 08:00 Resp 18 06/23/17 08:00 BP 92/61 06/23/17 08:12 Pulse Ox 93 L 06/23/17 08:00 Weight - Most Recent: 95 kg I&O - Last 24 hours: Intake & Output 06/22/17 06/23/17 06/23/17 22:59 06:59 14:59 Intake Total 1100 1500 Output Total 1000 2100 Balance 100 -600 Lab Results - Last 24 hrs: Laboratory Results - last 24 hr 06/22/17 06/22/17 06/22/17 Range/Units 10:56 16:43 20:48 WBC (4.0-11.0) K/uL RBC (4.30-5.90) M/uL Hgb (12.0-16.0) g/dL Hct (36.0-46.0) % MCV (80.0-98.0) fL MCH (27.0-32.0) pg MCHC (31.0-37.0) g/dL RDW Std Deviation (28.0-62.0) fl RDW Coeff of Aranza (11.0-15.0) % Plt Count (150-400) K/uL MPV (7.40-12.00) fL Add Manual Diff Neutrophils % (Manual) (48.0-80.0) % Lymphocytes % (Manual) (16.0-40.0) % Monocytes % (Manual) (0.0-15.0) % Nucleated RBC % /100WBC Absolute Seg Neuts (1.4-5.7) Lymphocytes # (Manual) (0.6-2.4) Monocytes # (Manual) (0.0-0.8) Nucleated RBCs # K/uL Sodium (136-146) mmol/L Potassium (3.5-5.1) mmol/L Chloride (98-110) mmol/L Carbon Dioxide (21-31) mmol/L BUN (6.0-23.0) mg/dL Creatinine (0.6-1.5) mg/dL Est Cr Clr Drug Dosing mL/min Estimated GFR (MDRD) ml/min Glucose (60-110) mg/dL POC Glucose 296 H 470 H 378 H (60-110) mg/dL Calcium (8.8-10.8) mg/dL 06/23/17 06/23/17 06/23/17 Range/Units 03:47 03:47 06:11 WBC 7.97 (4.0-11.0) K/uL RBC 4.30 (4.30-5.90) M/uL Hgb 13.5 (12.0-16.0) g/dL Hct 39.6 (36.0-46.0) % MCV 92.1 (80.0-98.0) fL MCH 31.4 (27.0-32.0) pg MCHC 34.1 (31.0-37.0) g/dL RDW Std Deviation 49.6 (28.0-62.0) fl RDW Coeff of Aranza 15 (11.0-15.0) % Plt Count 190 (150-400) K/uL MPV 9.90 (7.40-12.00) fL Add Manual Diff YES Neutrophils % (Manual) 60 (48.0-80.0) % Lymphocytes % (Manual) 36 (16.0-40.0) % Monocytes % (Manual) 4 (0.0-15.0) % Nucleated RBC % 0.0 /100WBC Absolute Seg Neuts 4.8 (1.4-5.7) Lymphocytes # (Manual) 2.9 H (0.6-2.4) Monocytes # (Manual) 0.3 (0.0-0.8) Nucleated RBCs # 0 K/uL Sodium 141 (136-146) mmol/L Potassium 3.6 (3.5-5.1) mmol/L Chloride 106 (98-110) mmol/L Carbon Dioxide 27 (21-31) mmol/L BUN 18 (6.0-23.0) mg/dL Creatinine 0.8 (0.6-1.5) mg/dL Est Cr Clr Drug Dosing 64.99 mL/min Estimated GFR (MDRD) > 60.0 ml/min Glucose 143 H (60-110) mg/dL POC Glucose 102 (60-110) mg/dL Calcium 8.5 L (8.8-10.8) mg/dL Med Orders - Current: Current Medications Acetaminophen (Tylenol) 650 mg PO Q4H PRN PRN Reason: Pain Last Admin: 06/23/17 07:26 Dose: 650 mg Alprazolam (Xanax) 0.25 mg PO DAILY [facility] Last Admin: 06/23/17 08:08 Dose: 0.25 mg Atorvastatin Calcium (Lipitor) 80 mg PO BEDTIME [facility] Last Admin: 06/22/17 20:43 Dose: 80 mg Benzonatate (Tessalon Perles) 200 mg PO BID PRN PRN Reason: Cough Last Admin: 06/22/17 21:13 Dose: 200 mg Ciprofloxacin (Ciprofloxacin Hcl) 500 mg PO BID [facility] Last Admin: 06/23/17 08:08 Dose: 500 mg Clopidogrel Bisulfate (Plavix) 75 mg PO DAILY [facility] Last Admin: 06/23/17 08:08 Dose: 75 mg Enoxaparin Sodium (Lovenox) 40 mg SUBCUT Q24H [facility] Last Admin: 06/22/17 15:46 Dose: 40 mg Famotidine (Pepcid) 20 mg PO BID [facility] Last Admin: 06/23/17 08:08 Dose: 20 mg Gemfibrozil (Lopid) 600 mg PO BID [facility] Last Admin: 06/23/17 08:08 Dose: 600 mg Sodium Chloride (Normal Saline) 500 mls @ 999 mls/hr IV STAT [facility] Last Admin: 06/21/17 17:59 Dose: 999 mls/hr Insulin Aspart (Novolog) 0 unit SUBCUT QIDACANDBED [facility] PRN Reason: Protocol Last Admin: 06/23/17 07:27 Dose: Not Given Insulin Glargine (Lantus Solostar) 50 units SUBCUT BEDTIME [facility] Last Admin: 06/22/17 20:59 Dose: 50 units Losartan Potassium (Cozaar) 25 mg PO DAILY [facility] Last Admin: 06/23/17 08:12 Dose: Not Given Meclizine HCl (Antivert) 12.5 mg PO TID PRN PRN Reason: Dizziness Last Admin: 06/18/17 18:21 Dose: 12.5 mg Melatonin (Melatonin) 3 mg PO DAILY [facility] Last Admin: 06/23/17 08:11 Dose: Not Given Nitroglycerin (Nitrostat) 0.4 mg SL Q5M PRN PRN Reason: Chest Pain Ondansetron HCl (Zofran) 4 mg PO ONETIME PRN PRN Reason: Nausea Oseltamivir Phosphate (Tamiflu) 75 mg PO BID [facility] Last Admin: 06/23/17 08:08 Dose: 75 mg Oxycodone HCl (Oxycodone) 5 mg PO DAILY PRN PRN Reason: Pain Desvenlafaxine [ (Pristiq] 100 Mg) 1 each PO DAILY [facility] Last Admin: 06/23/17 08:16 Dose: Not Given Prednisone (Prednisone) 60 mg PO DAILY [facility] Last Admin: 06/23/17 08:07 Dose: 60 mg Senna/Docusate Sodium (Senna Plus) 2 tab PO BEDTIME [facility] Last Admin: 06/22/17 20:43 Dose: 2 tab Discontinued Medications Benzonatate (Tessalon Perles) 200 mg PO ONETIME ONE Stop: 06/21/17 09:25 Last Admin: 06/21/17 10:02 Dose: 200 mg Calcium Carbonate/Glycine (Tums) 1,000 mg PO ONETIME ONE Stop: 06/19/17 12:04 Last Admin: 06/19/17 12:15 Dose: 1,000 mg Gadobenate Dimeglumine (Multihance) 20 ml IVPUSH ONETIME STA Stop: 06/21/17 20:48 Last Admin: 06/21/17 20:48 Dose: 17 ml Sodium Chloride (Normal Saline) 1,000 mls @ 125 mls/hr IV STAT [facility] Last Admin: 06/18/17 15:58 Dose: 125 mls/hr Sodium Chloride (Normal Saline) 1,000 mls @ 50 mls/hr IV ASDIRECTED [facility] Last Admin: 06/19/17 09:00 Dose: 50 mls/hr Sodium Chloride (Normal Saline) 1,000 mls @ 10 mls/hr IV ASDIRECTED [facility] Last Admin: 06/19/17 11:40 Dose: 10 mls/hr Insulin Aspart (Novolog) 0 unit SUBCUT QIDACANDBED [facility] PRN Reason: Protocol Insulin Aspart (Novolog) 20 unit SUBCUT ONETIME ONE Stop: 06/19/17 17:56 Last Admin: 06/19/17 18:03 Dose: 20 units Iopamidol (Isovue Multipack-370 (76%)) 50 ml IVPUSH ONETIME ONE Stop: 06/21/17 12:21 Last Admin: 06/21/17 12:21 Dose: 50 ml Oxycodone HCl (Oxycodone) 5 mg PO DAILY [facility] Last Admin: 06/21/17 08:54 Dose: Not Given Potassium Chloride (Klor-Con M20) 40 meq PO ONETIME ONE Stop: 06/19/17 08:43 Last Admin: 06/19/17 09:04 Dose: 40 meq *Q Meaningful Use (DIS) - VTE *Q VTE Criteria *Q: - Stroke *Q Stroke Criteria *Q: - AMI *Q AMI Criteria *Q: <Bubba Kerr - Last Filed: 06/25/17 11:16> Discharge Summary - Patient Summary/Data Consults: Consultations 06/21/17 14:22 PT Evaluation and Treatment [CONS] Routine - Patient Data Vitals - Most Recent: Last Vital Signs Temp 36.2 C 06/23/17 08:00 Pulse 101 H 06/23/17 08:00 Resp 18 06/23/17 08:00 BP 92/61 06/23/17 08:12 Pulse Ox 93 L 06/23/17 08:00 Med Orders - Current: Current Medications Discontinued Medications Acetaminophen (Tylenol) 650 mg PO Q4H PRN PRN Reason: Pain Last Admin: 06/23/17 07:26 Dose: 650 mg Alprazolam (Xanax) 0.25 mg PO DAILY [facility] Last Admin: 06/23/17 08:08 Dose: 0.25 mg Atorvastatin Calcium (Lipitor) 80 mg PO BEDTIME [facility] Last Admin: 06/22/17 20:43 Dose: 80 mg Benzonatate (Tessalon Perles) 200 mg PO BID PRN PRN Reason: Cough Last Admin: 06/22/17 21:13 Dose: 200 mg Benzonatate (Tessalon Perles) 200 mg PO ONETIME ONE Stop: 06/21/17 09:25 Last Admin: 06/21/17 10:02 Dose: 200 mg Calcium Carbonate/Glycine (Tums) 1,000 mg PO ONETIME ONE Stop: 06/19/17 12:04 Last Admin: 06/19/17 12:15 Dose: 1,000 mg Ciprofloxacin (Ciprofloxacin Hcl) 500 mg PO BID [facility] Last Admin: 06/23/17 08:08 Dose: 500 mg Clopidogrel Bisulfate (Plavix) 75 mg PO DAILY [facility] Last Admin: 06/23/17 08:08 Dose: 75 mg Enoxaparin Sodium (Lovenox) 40 mg SUBCUT Q24H [facility] Last Admin: 06/22/17 15:46 Dose: 40 mg Famotidine (Pepcid) 20 mg PO BID [facility] Last Admin: 06/23/17 08:08 Dose: 20 mg Gadobenate Dimeglumine (Multihance) 20 ml IVPUSH ONETIME STA Stop: 06/21/17 20:48 Last Admin: 06/21/17 20:48 Dose: 17 ml Gemfibrozil (Lopid) 600 mg PO BID [facility] Last Admin: 06/23/17 08:08 Dose: 600 mg Sodium Chloride (Normal Saline) 1,000 mls @ 125 mls/hr IV STAT [facility] Last Admin: 06/18/17 15:58 Dose: 125 mls/hr Sodium Chloride (Normal Saline) 1,000 mls @ 50 mls/hr IV ASDIRECTED [facility] Last Admin: 06/19/17 09:00 Dose: 50 mls/hr Sodium Chloride (Normal Saline) 1,000 mls @ 10 mls/hr IV ASDIRECTED [facility] Last Admin: 06/19/17 11:40 Dose: 10 mls/hr Sodium Chloride (Normal Saline) 500 mls @ 999 mls/hr IV STAT [facility] Last Admin: 06/21/17 17:59 Dose: 999 mls/hr Insulin Aspart (Novolog) 0 unit SUBCUT QIDACANDBED [facility] PRN Reason: Protocol Insulin Aspart (Novolog) 0 unit SUBCUT QIDACANDBED [facility] PRN Reason: Protocol Last Admin: 06/23/17 12:29 Dose: 9 units Insulin Aspart (Novolog) 20 unit SUBCUT ONETIME ONE Stop: 06/19/17 17:56 Last Admin: 06/19/17 18:03 Dose: 20 units Insulin Glargine (Lantus Solostar) 50 units SUBCUT BEDTIME [facility] Last Admin: 06/22/17 20:59 Dose: 50 units Iopamidol (Isovue Multipack-370 (76%)) 50 ml IVPUSH ONETIME ONE Stop: 06/21/17 12:21 Last Admin: 06/21/17 12:21 Dose: 50 ml Losartan Potassium (Cozaar) 25 mg PO DAILY [facility] Last Admin: 06/23/17 08:12 Dose: Not Given Meclizine HCl (Antivert) 12.5 mg PO TID PRN PRN Reason: Dizziness Last Admin: 06/18/17 18:21 Dose: 12.5 mg Melatonin (Melatonin) 3 mg PO DAILY [facility] Last Admin: 06/23/17 08:11 Dose: Not Given Nitroglycerin (Nitrostat) 0.4 mg SL Q5M PRN PRN Reason: Chest Pain Ondansetron HCl (Zofran) 4 mg PO ONETIME PRN PRN Reason: Nausea Oseltamivir Phosphate (Tamiflu) 75 mg PO BID [facility] Last Admin: 06/23/17 08:08 Dose: 75 mg Oxycodone HCl (Oxycodone) 5 mg PO DAILY [facility] Last Admin: 06/21/17 08:54 Dose: Not Given Oxycodone HCl (Oxycodone) 5 mg PO DAILY PRN PRN Reason: Pain Desvenlafaxine [ (Pristiq] 100 Mg) 1 each PO DAILY [facility] Last Admin: 06/23/17 08:16 Dose: Not Given Potassium Chloride (Klor-Con M20) 40 meq PO ONETIME ONE Stop: 06/19/17 08:43 Last Admin: 06/19/17 09:04 Dose: 40 meq Prednisone (Prednisone) 60 mg PO DAILY [facility] Last Admin: 06/23/17 08:07 Dose: 60 mg Senna/Docusate Sodium (Senna Plus) 2 tab PO BEDTIME [facility] Last Admin: 06/22/17 20:43 Dose: 2 tab *Q Meaningful Use (DIS) - VTE *Q VTE Criteria *Q: - Stroke *Q Stroke Criteria *Q: - AMI *Q AMI Criteria *Q: - Free Text/Narrative Note: I have examined the patient. I have discussed findings and treatment plan with resident. I agree with the assessment and plan outlined in the following resident's note.
== END 2017-06-23 14:40 | disposition home health service (06) | DRG 690 ==
LOC: MW.ED 12:04 → MW.MS 15:41 → OBSVTOIN 06-21 12:45
PROVIDERS: ADMIT Family Medicine; ATTEND Family Medicine
DX: N39.0 Urinary tract infection, site not specified (principal); J11.1 Influenza due to unidentified influenza virus with other respiratory manifestations; G93.9 Disorder of brain, unspecified; R53.1 Weakness; R42 Dizziness and giddiness; R68.83 Chills (without fever); R26.81 Unsteadiness on feet; E86.0 Dehydration; H66.91 Otitis media, unspecified, right ear; E11.9 Type 2 diabetes mellitus without complications; I50.9 Heart failure, unspecified; I10 Essential (primary) hypertension; F41.8 Other specified anxiety disorders; Z79.52 Long term (current) use of systemic steroids; Z91.81 History of falling; Z79.4 Long term (current) use of insulin; Z88.0 Allergy status to penicillin; Z79.899 Other long term (current) drug therapy; Z85.72 Personal history of non-Hodgkin lymphomas
CPT/HCPCS: 36415; 70470; 70470-26; 70553; 70553-26; 71045; 71045-26; 72156; 72156-26; 80048; 80053; 81001; 82550; 82553; 82962; 83605; 84484; 85025; 85027; 87040; 87086; 87804; 93005; 96360; 96361; 96372; 97161-GP; 97530-GP; 99284; 99285-25; A9270-GY; A9577; G0378; J1650; J1815-GY ×2; J7040; Q9967

== ENCOUNTER 2017-10-19 12:10 | Observation (INO) | payer MEDICARE, OTHER ==
--- NOTE | 2017-10-19 12:29 | EDM.PDOC ---
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 The patient said she had a normal day yesterday although she slept more than usual but 8 fine and had no systemic complaints. She has been compliant with her medications and she says she woke this morning and was walking to the kitchen when she suddenly felt very lightheaded like she might pass out dizzy but had no headache or back pain chest pain nausea vomiting abdominal pain or shortness of breath. Patient states that she did not pass out or blackout and that a home health care worker was present and took her blood pressure and initially was 60/30 and then the repeat was 70/40. She says she has had episodes like this in the past but hasn't had one in quite some time. She says she has chronic neck pain and that is not new or different and she does not have a headache. Patient says that she did not have weakness in any of her extremities or tingling and currently in the ED for systolic blood pressure is 160 which she is surprised about. She says she only feels symptomatic if she sits up. She currently says she feels back at her baseline but does feel some generalized weakness. The patient tells me as a result of this brainstem lesion she is not experiencing any discomfort and she does not think today's events are related to that. Patient also tells me that she is concerned that she has a urinary tract infection and she gets them frequently and she feels like she's starting to have the symptoms. Review of systems: As per history of present illness and below otherwise all systems reviewed and negative. Past medical history: As per history of present illness and as reviewed below otherwise noncontributory. Surgical history: As per history of present illness and as reviewed below otherwise noncontributory. Social history: No reported history of drug or alcohol abuse. Family history: As per history of present illness and as reviewed below otherwise noncontributory. Physical exam: General: Well-developed well-nourished female who is nontoxic and vital signs are reviewed by me HEENT: Atraumatic, normocephalic, pupils reactive, negative for conjunctival pallor or scleral icterus, mucous membranes moist, throat clear, neck supple, nontender, trachea midline. There is no cervical adenopathy or nuchal rigidity. Lungs: Clear to auscultation, breath sounds equal bilaterally, chest nontender. No worker breathing stridor or wheezing Heart: S1S2, regular, negative for clicks, rubs, or JVD. Abdomen: Soft, nondistended, she has some mild lower abdominal tenderness with palpation but she says that is not new or different and is not concerned about that. Negative for masses or hepatosplenomegaly. Negative for costovertebral tenderness. Pelvis: Stable nontender. Genitourinary: Deferred. Rectal: Deferred. Extremities: Atraumatic, negative for cords or calf pain. Neurovascular unremarkable. Full range of motion without defects or deficits and no pedal edema Neuro: Awake, alert, oriented. Cranial nerves II through XII unremarkable. Cerebellum unremarkable. Motor and sensory unremarkable throughout. Exam nonfocal. Dorsi and plantar flexion is intact 5/5 inclusive of the great toe and the patient has very good strength throughout normal tone and no drift. Her speech is intact Diagnostics: EKG CBC CMP troponin UA lactic acid orthostatic vitals chest x-ray CT scan of the head urine culture Therapeutics: IV O2 monitor IV bolus of fluid Levaquin Please note that the patient's orthostatics were systolic blood pressure went from 127-99-75 from supine to sitting to standing. Today's labs BUN and creatinine were compared to ones performed on June 23 of this year. At that time her BUN was 18 and a creatinine of 0.8 and today's values are 34 and 1.5. Case was discussed with Dr. Kerr at 2:28 PM. He would like observation admission for orthostasis dehydration and UTI. Patient is aware of this admission and is agreeable Impression: Orthostasis/near syncope, dehydration with prerenal azotemia; early UTI Definitive disposition and diagnosis as appropriate pending reevaluation and review of above. Chest Pain Score (Numeric/FACES): 4 - Related Data Allergies Allergy/AdvReac Type Severity Reaction Status Date / Time Penicillins Allergy Severe Cannot Verified 10/19/17 12:16 Remember silver Allergy Rash Verified 10/19/17 12:16 [From [employer]] Home Meds: Home Meds ALPRAZolam [Xanax] 0.25 mg PO DAILY 06/18/17 [History] Clopidogrel [Plavix] 75 mg PO DAILY 06/18/17 [History] Insulin Aspart [NovoLOG] 15 unit SUBCUT DAILY 06/18/17 [History] Insulin Glarg,Human.Rec.Analog [Lantus] 50 units SUBCUT BEDTIME 06/18/17 [ History] Losartan [Cozaar] 25 mg PO DAILY 06/18/17 [History] Meclizine [Antivert] 12.5 mg PO TID PRN 06/18/17 [History] Melatonin 3 mg PO DAILY 06/18/17 [History] Nitroglycerin [Nitrostat] 0.4 mg SL ASDIRECTED PRN 06/18/17 [History] Prednisone [IJD: predniSONE] 3 tab PO DAILY 06/18/17 [History] Sennosides/Docusate Sodium [Senna-S] 2 tab PO BEDTIME 06/18/17 [History] Sulfamethoxazole/Trimethoprim [Bactrim Ds Tablet] 1 each PO DAILY 06/18/17 [ History] atorvaSTATin [Lipitor] 80 mg PO BEDTIME 06/18/17 [History] oxyCODONE 5 mg PO DAILY 06/18/17 [History] Amitriptyline [Elavil] 10 mg PO BEDTIME 10/19/17 [History] Calcium Carb & Citrate/Vit D3 [Calcium + D3 ER Tablet] 1 tab PO DAILY 10/19/17 [ History] DULoxetine [Cymbalta] 60 mg PO DAILY 10/19/17 [History] Furosemide 40 mg PO DAILY 10/19/17 [History] Past Medical History HEENT History: Reports: Impaired Vision Cardiovascular History: Reports: Angina, Hypertension Other Cardiovascular History: 'partial heart' Respiratory History: Reports: Sleep Apnea Other Respiratory History: pneumonia [employer] WORK[employer] History: Reports: Musculoskeletal History: Reports: Fracture Neurological History: Reports: Concussion, CVA, Headaches, Chronic, Head Trauma , Vertigo, Other (See Below) Other Neuro History: brainstem and spinal cord lesions. stroke in the passed 6 months. stroke affecting left arm. numbnessl to left arm. Psychiatric History: Reports: Anxiety, Depression Endocrine/Metabolic History: Reports: Diabetes, Type II Hematologic History: Reports: Other (See Below) Other Hematologic History: Easy bruising, not on anticoagulant therapy Oncologic (Cancer) History: Reports: Lymphoma - Infectious Disease History Infectious Disease History: Reports: Chicken Pox, Measles, Mononucleosis, Mumps - Past Surgical History HEENT Surgical History: Reports: Adenoidectomy, Cataract Surgery, Tonsillectomy , Other (See Below) Other HEENT Surgeries/Procedures: Sinus surgery, blepheroplasty Other Cardiovascular Surgeries/Procedures: 3 bypasses, 10 stents Neurological Surgical History: Reports: None Musculoskeletal Surgical History: Reports: Carpal Tunnel Social & Family History - Family History Family Medical History: Noncontributory - Tobacco Use Smoking Status *Q: Never Smoker - Caffeine Use Caffeine Use: Reports: Coffee - Recreational Drug Use Recreational Drug Use: No ED ROS GENERAL - Review of Systems Review Of Systems: ROS reveals no pertinent complaints other than HPI. ED EXAM, GENERAL - Physical Exam Exam: See Below (See dictation) Course - Vital Signs Last Recorded V/S: Last Vital Signs Temp 36.6 C 10/19/17 12:12 Pulse 118 H 10/19/17 12:12 Resp 20 10/19/17 12:12 BP 169/89 H 10/19/17 12:12 Pulse Ox 96 10/19/17 12:12 Orthostatic Blood Pressure [ 75/46 Standing] Orthostatic Blood Pressure [ 99/66 Sitting] Orthostatic Blood Pressure [ 127/86 Supine] - Orders/Labs/Meds Orders: Active Orders 24 hr Category Date Time Status Cardiac Monitoring [RC] . DIRECTED Care 10/19/17 12:22 Active EKG Documentation Completion [RC] STAT Care 10/19/17 12:22 Active Implanted Port Access [RC] QSHIFT Care 10/19/17 12:24 Active Orthostatic Vital Signs [RC] ASDIRECTED Care 10/19/17 12:24 Active Oxygen Therapy, ED [RC] ASDIRECTED Care 10/19/17 12:22 Active Pulse Oximetry [RC] ASDIRECTED Care 10/19/17 12:22 Active CULTURE URINE [RM] Stat Lab 10/19/17 12:23 Received UA W/MICROSCOPIC [URIN] Stat Lab 10/19/17 12:23 Ordered Levofloxacin/Dextrose 5%-Water [Levaquin in D5W 500 MG/ Med 10/19/17 14:29 Ordered 100 ML] 500 mg Premix Bag 1 bag IV ONETIME Sodium Chloride 0.9% [Normal Saline] 1,000 ml Med 10/19/17 13:15 Active IV ASDIRECTED Sodium Chloride 0.9% [Normal Saline] 250 ml Med 10/19/17 12:30 Active IV STAT Medication Orders Sodium Chloride (Normal Saline) 250 mls @ 999 mls/hr IV STAT CHANTE Last Admin: 10/19/17 13:42 Dose: 999 mls/hr Sodium Chloride (Normal Saline) 1,000 mls @ 100 mls/hr IV ASDIRECTED CHANTE Last Admin: 10/19/17 13:40 Dose: 100 mls/hr Labs: Laboratory Tests 10/19/17 10/19/17 10/19/17 Range/Units 12:23 12:43 12:43 WBC 7.68 (4.0-11.0) K/uL RBC 4.58 (4.30-5.90) M/uL Hgb 14.6 (12.0-16.0) g/dL Hct 42.2 (36.0-46.0) % MCV 92.1 (80.0-98.0) fL MCH 31.9 (27.0-32.0) pg MCHC 34.6 (31.0-37.0) g/dL RDW Std Deviation 47.2 (28.0-62.0) fl RDW Coeff of Aranza 14 (11.0-15.0) % Plt Count 197 (150-400) K/uL MPV 10.10 (7.40-12.00) fL Neut % (Auto) 74.2 (48.0-80.0) % Lymph % (Auto) 20.7 (16.0-40.0) % Barren % (Auto) 4.9 (0.0-15.0) % Eos % (Auto) 0.1 (0.0-7.0) % Baso % (Auto) 0.1 (0.0-1.5) % Neut # (Auto) 5.7 (1.4-5.7) K/uL Lymph # (Auto) 1.6 (0.6-2.4) K/uL Barren # (Auto) 0.4 (0.0-0.8) K/uL Eos # (Auto) 0.0 (0.0-0.7) K/uL Baso # (Auto) 0.0 (0.0-0.1) K/uL Nucleated RBC % 0.0 /100WBC Nucleated RBCs # 0 K/uL Lactate 2.9 H (0.20-2.00) mmol/L Sodium (136-145) mmol/L Potassium (3.5-5.1) mmol/L Chloride (98-107) mmol/L Carbon Dioxide (21.0-32.0) mmol/L BUN (7.0-18.0) mg/dL Creatinine (0.6-1.0) mg/dL Est Cr Clr Drug Dosing mL/min Estimated GFR (MDRD) ml/min Glucose (74-106) mg/dL Calcium (8.5-10.1) mg/dL Total Bilirubin (0.2-1.0) mg/dL AST (15-37) IU/L ALT (14-63) IU/L Alkaline Phosphatase (46-116) U/L Troponin I (0.000-0.056) ng/mL Total Protein (6.4-8.2) g/dL Albumin (3.4-5.0) g/dL Globulin (2.0-3.5) g/dL Albumin/Globulin Ratio (1.3-2.8) Urine Color YELLOW Urine Appearance CLEAR Urine pH 6.0 (5.0-8.0) Ur Specific Wheaton 1.015 (1.001-1.035) Urine Protein NEGATIVE (NEGATIVE) mg/dL Urine Glucose (UA) >=1000 (NEGATIVE) mg/dL Urine Ketones NEGATIVE (NEGATIVE) mg/dL Urine Occult Blood TRACE-LYSED (NEGATIVE) Urine Nitrite NEGATIVE (NEGATIVE) Urine Bilirubin NEGATIVE (NEGATIVE) Urine Urobilinogen 0.2 (<2.0) EU/dL Ur Leukocyte Esterase SMALL (NEGATIVE) Urine RBC 0-2 (0-2/HPF) Urine WBC 6-8 (0-5/HPF) Ur Epithelial Cells FEW (NONE-FEW) Urine Bacteria FEW (NEGATIVE) 10/19/17 Range/Units 12:43 WBC (4.0-11.0) K/uL RBC (4.30-5.90) M/uL Hgb (12.0-16.0) g/dL Hct (36.0-46.0) % MCV (80.0-98.0) fL MCH (27.0-32.0) pg MCHC (31.0-37.0) g/dL RDW Std Deviation (28.0-62.0) fl RDW Coeff of Aranza (11.0-15.0) % Plt Count (150-400) K/uL MPV (7.40-12.00) fL Neut % (Auto) (48.0-80.0) % Lymph % (Auto) (16.0-40.0) % Barren % (Auto) (0.0-15.0) % Eos % (Auto) (0.0-7.0) % Baso % (Auto) (0.0-1.5) % Neut # (Auto) (1.4-5.7) K/uL Lymph # (Auto) (0.6-2.4) K/uL Barren # (Auto) (0.0-0.8) K/uL Eos # (Auto) (0.0-0.7) K/uL Baso # (Auto) (0.0-0.1) K/uL Nucleated RBC % /100WBC Nucleated RBCs # K/uL Lactate (0.20-2.00) mmol/L Sodium 137 (136-145) mmol/L Potassium 3.7 (3.5-5.1) mmol/L Chloride 98 (98-107) mmol/L Carbon Dioxide 28.8 (21.0-32.0) mmol/L BUN 34 H (7.0-18.0) mg/dL Creatinine 1.5 H (0.6-1.0) mg/dL Est Cr Clr Drug Dosing 36.36 mL/min Estimated GFR (MDRD) 34.9 ml/min Glucose 312 H (74-106) mg/dL Calcium 8.9 (8.5-10.1) mg/dL Total Bilirubin 0.6 (0.2-1.0) mg/dL AST 12 L (15-37) IU/L ALT 18 (14-63) IU/L Alkaline Phosphatase 91 (46-116) U/L Troponin I < 0.050 (0.000-0.056) ng/mL Total Protein 5.6 L (6.4-8.2) g/dL Albumin 2.3 L (3.4-5.0) g/dL Globulin 3.3 (2.0-3.5) g/dL Albumin/Globulin Ratio 0.7 L (1.3-2.8) Urine Color Urine Appearance Urine pH (5.0-8.0) Ur Specific [place] (1.001-1.035) Urine Protein (NEGATIVE) mg/dL Urine Glucose (UA) (NEGATIVE) mg/dL Urine Ketones (NEGATIVE) mg/dL Urine Occult Blood (NEGATIVE) Urine Nitrite (NEGATIVE) Urine Bilirubin (NEGATIVE) Urine Urobilinogen (<2.0) EU/dL Ur Leukocyte Esterase (NEGATIVE) Urine RBC (0-2/HPF) Urine WBC (0-5/HPF) Ur Epithelial Cells (NONE-FEW) Urine Bacteria (NEGATIVE) Meds: Medications Generic Name Dose Route Start Last Admin Trade Name Freq PRN Reason Stop Dose Admin Sodium Chloride 250 mls @ 999 mls/hr 10/19/17 12:30 10/19/17 13:42 Normal Saline IV 999 mls/hr STAT CHANTE Administration Sodium Chloride 1,000 mls @ 100 mls/hr 10/19/17 13:15 10/19/17 13:40 Normal Saline IV 100 mls/hr ASDIRECTED CHANTE Administration Departure - Departure Time of Disposition: 14:30 Disposition: Refer to Observation Condition: Good Clinical Impression: Orthostasis, Dehydration UTI (urinary tract infection) Qualifiers: Urinary tract infection type: site unspecified Hematuria presence: without hematuria Qualified Code(s): N39.0 - Urinary tract infection, site not specified Referrals: PCP,None [Primary Care Provider] - Forms: ED Department Discharge - My Orders Last 24 Hours: My Active Orders 10/19/17 12:22 Cardiac Monitoring [RC] . DIRECTED EKG Documentation Completion [RC] STAT Oxygen Therapy, ED [RC] ASDIRECTED Pulse Oximetry [RC] ASDIRECTED 10/19/17 12:23 CULTURE URINE [RM] Stat UA W/MICROSCOPIC [URIN] Stat 10/19/17 12:24 Implanted Port Access [RC] QSHIFT Orthostatic Vital Signs [RC] ASDIRECTED 10/19/17 12:30 Sodium Chloride 0.9% [Normal Saline] 250 ml IV STAT 10/19/17 13:15 Sodium Chloride 0.9% [Normal Saline] 1,000 ml IV ASDIRECTED 10/19/17 14:29 Levofloxacin/Dextrose 5%-Water [Levaquin in D5W 500 MG/100 ML] 500 mg Premix Bag 1 bag IV ONETIME - Assessment/Plan Last 24 Hours: My Active Orders 10/19/17 12:22 Cardiac Monitoring [RC] . DIRECTED EKG Documentation Completion [RC] STAT Oxygen Therapy, ED [RC] ASDIRECTED Pulse Oximetry [RC] ASDIRECTED 10/19/17 12:23 CULTURE URINE [RM] Stat UA W/MICROSCOPIC [URIN] Stat 10/19/17 12:24 Implanted Port Access [RC] QSHIFT Orthostatic Vital Signs [RC] ASDIRECTED 10/19/17 12:30 Sodium Chloride 0.9% [Normal Saline] 250 ml IV STAT 10/19/17 13:15 Sodium Chloride 0.9% [Normal Saline] 1,000 ml IV ASDIRECTED 10/19/17 14:29 Levofloxacin/Dextrose 5%-Water [Levaquin in D5W 500 MG/100 ML] 500 mg Premix Bag 1 bag IV ONETIME
[2017-10-19] MEDS ORDERED: Sodium Chloride 0.9% 250 ML IV SCH (12:30)
[2017-10-19 13:30] LABS: CHLORIDE,CL 98 mmol/L (98-107); SODIUM,NA 137 mmol/L (136-145)
--- NOTE | 2017-10-19 13:34 | CR ---
EXAMINATION: Portable chest radiograph. HISTORY: Shortness of breath. COMPARISON: 08/04/2017. FINDINGS: The trachea is midline. The cardiomediastinal silhouette is within normal limits. No pulmonary infilt rates, effusions or pneumothorax. Median sternotomy wires are noted. Right-sided portacatheter again demonstrated. Coronary stents noted. Osseous structures appear unremarkable. IMPRESSION: No acute cardiopulmonary process.
--- NOTE | 2017-10-19 13:39 | CT ---
EXAMINATION: Non contrast CT head. Coronal and sagittal reformats. HISTORY: Pain FINDINGS: No evidence of intra or extra axial hemorrhage, mass, midline shift, hydrocephalus or edema. No hyp oattenuation changes in the major vascular territories to suggest acute infarct. Periventricular whi te matter hypodensities noted. No abnormal intracranial calcifications are detected. No evidence of substantial vascular calcificat ions. Paranasal sinuses and mastoid air cells are well aerated without substantial findings. The pi tuitary fossa appears unremarkable. The calvarium is intact. No evidence of skull fracture. Orbits a nd globes are symmetric. IMPRESSION: 1. No acute intracranial findings. 2. Mild small vessel ischemic changes.
[2017-10-19] MEDS: Sodium Chloride 0.9% 1,000 ML IV SCH ×2 (13:40→18:37)
[2017-10-19] MEDS ORDERED: Levofloxacin/Dextrose 5%-Water 500 MG in Premix Bag 1 BAG IV ONE (14:29)
[2017-10-19] MEDS ORDERED: Sodium Chloride 0.9% 1,000 ML IV ONE (19:46)
[2017-10-19] MEDS ORDERED: Levofloxacin/Dextrose 5%-Water 500 MG in Premix Bag 1 BAG IV SCH (20:00)
[2017-10-19] MEDS ORDERED: Acetaminophen 325 MG Tab PO PRN (20:45)
[2017-10-19] MEDS ORDERED: Ondansetron 4 MG/2 ML SDV IVPUSH PRN (20:46)
--- NOTE | 2017-10-19 20:52 | PCM.HP ---
H&P History of Present Illness - General Admit Problem/Dx: Admission Diagnosis/Problem Admission Diagnosis/Problem Orthostasis - History of Present Illness Initial Comments - Free Text/Narative: 67 yo female with pmh of CAD, and brainstem tumor. She was admitted last May for influenza and UTI. 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 She finished up a week of prednisone 35mg daily and is supposed to decrease to 30mg tomorrow. She presents to the ED with complaint of low blood pressure of 60/30. She reports the symptoms of dizziness when standing but denies falling or passing out. She denies any blood in stool, fevers, or chills. She reports she feels like she has a UTI. Chest Pain Score (Numeric/FACES): 4 - Related Data Allergies/Adverse Reactions: Allergies Allergy/AdvReac Type Severity Reaction Status Date / Time Penicillins Allergy Severe Cannot Verified 10/19/17 12:16 Remember silver Allergy Rash Verified 10/19/17 12:16 [From [employer]] Home Medications: Home Meds ALPRAZolam [Xanax] 0.25 mg PO DAILY PRN 06/18/17 [History] Clopidogrel [Plavix] 75 mg PO DAILY 06/18/17 [History] Insulin Aspart [NovoLOG] 5 unit SUBCUT TIDAC 06/18/17 [History] Losartan [Cozaar] 12.5 mg PO BEDTIME 06/18/17 [History] Meclizine [Antivert] 12.5 mg PO TID PRN 06/18/17 [History] Melatonin 3 mg PO DAILY 06/18/17 [History] Nitroglycerin [Nitrostat] 0.4 mg SL ASDIRECTED PRN 06/18/17 [History] Sennosides/Docusate Sodium [Senna-S] 2 tab PO BEDTIME 06/18/17 [History] Sulfamethoxazole/Trimethoprim [Bactrim Ds Tablet] 1 each PO DAILY 06/18/17 [ History] atorvaSTATin [Lipitor] 80 mg PO BEDTIME 06/18/17 [History] oxyCODONE 5 mg PO ASDIRECTED PRN 06/18/17 [History] Albuterol [Ventolin HFA] 2 puff INH Q6H PRN 10/19/17 [History] Amitriptyline [Elavil] 10 mg PO BEDTIME 10/19/17 [History] Calcium Carb & Citrate/Vit D3 [Calcium + D3 ER Tablet] 1 tab PO DAILY 10/19/17 [ History] Carvedilol 3.125 mg PO BIDMEALS 10/19/17 [History] DULoxetine [Cymbalta] 60 mg PO DAILY 10/19/17 [History] Desvenlafaxine [Desvenlafaxine ER] 100 mg PO DAILY 10/19/17 [History] Furosemide 40 mg PO DAILY PRN 10/19/17 [History] Gabapentin [Neurontin] 300 mg PO TID 10/19/17 [History] Gemfibrozil 600 mg PO BIDMEALS 10/19/17 [History] Insulin Degludec [Tresiba Flextouch U-200] 48 unit SQ DAILY 10/19/17 [History] Ipratropium [Atrovent 0.06% Nasal [place]] 2 spray NASBOTH BID 10/19/17 [History] Promethazine [Phenergan] 25 - 50 mg PO Q8H PRN 10/19/17 [History] predniSONE [Prednisone] 100 mg PO ASDIRECTED 10/19/17 [History] Nitrofurantoin Green/Macrocryst [Nitrofurantoin Green-MCR] 100 mg PO BID 5 Days # 9 cap 10/20/17 [Rx] Past Medical History HEENT History: Reports: Impaired Vision Cardiovascular History: Reports: Angina, Bypass, Hypertension, Stents Other Cardiovascular History: 'partial heart' Respiratory History: Reports: Sleep Apnea Other Respiratory History: pneumonia [employer] History: Reports: Musculoskeletal History: Reports: Fracture Other Musculoskeletal History: Lower back fracture, Ribs Neurological History: Reports: Concussion, CVA, Headaches, Chronic, Head Trauma , Vertigo, Other (See Below) Other Neuro History: brainstem and spinal cord lesions. stroke in the passed 6 months. stroke affecting left arm. numbnessl to left arm. Psychiatric History: Reports: Anxiety, Depression Endocrine/Metabolic History: Reports: Diabetes, Type II Hematologic History: Reports: Other (See Below) Other Hematologic History: Easy bruising, not on anticoagulant therapy Oncologic (Cancer) History: Reports: Lymphoma - Infectious Disease History Infectious Disease History: Reports: Chicken Pox, Measles, Mononucleosis, Mumps - Past Surgical History HEENT Surgical History: Reports: Adenoidectomy, Cataract Surgery, Tonsillectomy , Other (See Below) Other HEENT Surgeries/Procedures: Sinus surgery, blepheroplasty Other Cardiovascular Surgeries/Procedures: 3 bypasses, 10 stents GI Surgical History: Reports: Cholecystectomy Neurological Surgical History: Reports: None Musculoskeletal Surgical History: Reports: Carpal Tunnel Social & Family History - Family History Family Medical History: Noncontributory - Tobacco Use Smoking Status *Q: Never Smoker - Caffeine Use Caffeine Use: Reports: Coffee - Recreational Drug Use Recreational Drug Use: No H&P Review of Systems - Review of Systems: Review Of Systems: ROS reveals no pertinent complaints other than HPI. Exam - Exam Exam: See Below - Vital Signs Vital Signs: Last Vital Signs Temp 36.6 C 10/19/17 12:12 Pulse 111 H 10/19/17 15:39 Resp 18 10/19/17 15:39 BP 140/80 10/19/17 15:39 Pulse Ox 95 10/19/17 15:39 Orthostatic Blood Pressure [ 75/46 Standing] Orthostatic Blood Pressure [ 99/66 Sitting] Orthostatic Blood Pressure [ 127/86 Supine] Weight: 97.522 kg - Exam General: Alert, Oriented HEENT: Mucosa Moist & [place] Lungs: Clear to Auscultation, Normal Respiratory Effort Cardiovascular: Regular Rate, Regular Rhythm GI/Abdominal Exam: Soft, Non-Tender Extremities: Non-Tender, No Pedal Edema Skin: Warm, Dry, Intact Neurological: Cranial Nerves Intact - Patient Data Lab Results Last 24 hrs: Laboratory Results - last 24 hr 10/19/17 10/19/17 10/19/17 Range/Units 12:23 12:43 12:43 WBC 7.68 (4.0-11.0) K/uL RBC 4.58 (4.30-5.90) M/uL Hgb 14.6 (12.0-16.0) g/dL Hct 42.2 (36.0-46.0) % MCV 92.1 (80.0-98.0) fL MCH 31.9 (27.0-32.0) pg MCHC 34.6 (31.0-37.0) g/dL RDW Std Deviation 47.2 (28.0-62.0) fl RDW Coeff of [place] 14 (11.0-15.0) % Plt Count 197 (150-400) K/uL MPV 10.10 (7.40-12.00) fL Neut % (Auto) 74.2 (48.0-80.0) % Lymph % (Auto) 20.7 (16.0-40.0) % Green % (Auto) 4.9 (0.0-15.0) % Eos % (Auto) 0.1 (0.0-7.0) % Baso % (Auto) 0.1 (0.0-1.5) % Neut # (Auto) 5.7 (1.4-5.7) K/uL Lymph # (Auto) 1.6 (0.6-2.4) K/uL Green # (Auto) 0.4 (0.0-0.8) K/uL Eos # (Auto) 0.0 (0.0-0.7) K/uL Baso # (Auto) 0.0 (0.0-0.1) K/uL Nucleated RBC % 0.0 /100WBC Nucleated RBCs # 0 K/uL Lactate 2.9 H (0.20-2.00) mmol/L Sodium (136-145) mmol/L Potassium (3.5-5.1) mmol/L Chloride (98-107) mmol/L Carbon Dioxide (21.0-32.0) mmol/L BUN (7.0-18.0) mg/dL Creatinine (0.6-1.0) mg/dL Est Cr Clr Drug Dosing mL/min Estimated GFR (MDRD) ml/min Glucose (74-106) mg/dL Calcium (8.5-10.1) mg/dL Total Bilirubin (0.2-1.0) mg/dL AST (15-37) IU/L ALT (14-63) IU/L Alkaline Phosphatase (46-116) U/L Troponin I (0.000-0.056) ng/mL Total Protein (6.4-8.2) g/dL Albumin (3.4-5.0) g/dL Globulin (2.0-3.5) g/dL Albumin/Globulin Ratio (1.3-2.8) Urine Color YELLOW Urine Appearance CLEAR Urine pH 6.0 (5.0-8.0) Ur Specific [place] 1.015 (1.001-1.035) Urine Protein NEGATIVE (NEGATIVE) mg/dL Urine Glucose (UA) >=1000 (NEGATIVE) mg/dL Urine Ketones NEGATIVE (NEGATIVE) mg/dL Urine Occult Blood TRACE-LYSED (NEGATIVE) Urine Nitrite NEGATIVE (NEGATIVE) Urine Bilirubin NEGATIVE (NEGATIVE) Urine Urobilinogen 0.2 (<2.0) EU/dL Ur Leukocyte Esterase SMALL (NEGATIVE) Urine RBC 0-2 (0-2/HPF) Urine WBC 6-8 (0-5/HPF) Ur Epithelial Cells FEW (NONE-FEW) Urine Bacteria FEW (NEGATIVE) 10/19/17 10/19/17 Range/Units 12:43 17:28 WBC (4.0-11.0) K/uL RBC (4.30-5.90) M/uL Hgb (12.0-16.0) g/dL Hct (36.0-46.0) % MCV (80.0-98.0) fL MCH (27.0-32.0) pg MCHC (31.0-37.0) g/dL RDW Std Deviation (28.0-62.0) fl RDW Coeff of [place]anza (11.0-15.0) % Plt Count (150-400) K/uL MPV (7.40-12.00) fL Neut % (Auto) (48.0-80.0) % Lymph % (Auto) (16.0-40.0) % Green % (Auto) (0.0-15.0) % Eos % (Auto) (0.0-7.0) % Baso % (Auto) (0.0-1.5) % Neut # (Auto) (1.4-5.7) K/uL Lymph # (Auto) (0.6-2.4) K/uL Green # (Auto) (0.0-0.8) K/uL Eos # (Auto) (0.0-0.7) K/uL Baso # (Auto) (0.0-0.1) K/uL Nucleated RBC % /100WBC Nucleated RBCs # K/uL Lactate 3.1 H (0.20-2.00) mmol/L Sodium 137 (136-145) mmol/L Potassium 3.7 (3.5-5.1) mmol/L Chloride 98 (98-107) mmol/L Carbon Dioxide 28.8 (21.0-32.0) mmol/L BUN 34 H (7.0-18.0) mg/dL Creatinine 1.5 H (0.6-1.0) mg/dL Est Cr Clr Drug Dosing 36.36 mL/min Estimated GFR (MDRD) 34.9 ml/min Glucose 312 H (74-106) mg/dL Calcium 8.9 (8.5-10.1) mg/dL Total Bilirubin 0.6 (0.2-1.0) mg/dL AST 12 L (15-37) IU/L ALT 18 (14-63) IU/L Alkaline Phosphatase 91 (46-116) U/L Troponin I < 0.050 (0.000-0.056) ng/mL Total Protein 5.6 L (6.4-8.2) g/dL Albumin 2.3 L (3.4-5.0) g/dL Globulin 3.3 (2.0-3.5) g/dL Albumin/Globulin Ratio 0.7 L (1.3-2.8) Urine Color Urine Appearance Urine pH (5.0-8.0) Ur Specific [place] (1.001-1.035) Urine Protein (NEGATIVE) mg/dL Urine Glucose (UA) (NEGATIVE) mg/dL Urine Ketones (NEGATIVE) mg/dL Urine Occult Blood (NEGATIVE) Urine Nitrite (NEGATIVE) Urine Bilirubin (NEGATIVE) Urine Urobilinogen (<2.0) EU/dL Ur Leukocyte Esterase (NEGATIVE) Urine RBC (0-2/HPF) Urine WBC (0-5/HPF) Ur Epithelial Cells (NONE-FEW) Urine Bacteria (NEGATIVE) Result Diagrams: 10/20/17 05:40 10/20/17 05:40 Problem List Initiated/Reviewed/Updated: Yes Orders Last 24hrs: Active Orders 24 hr Category Date Time Status Patient Status [ADT] Stat ADT 10/19/17 14:31 Active Blood Glucose Check, Bedside [RC] TIDAC Care 10/19/17 20:45 Active Cardiac Monitoring [RC] . DIRECTED Care 10/19/17 12:22 Active EKG Documentation Completion [RC] STAT Care 10/19/17 12:22 Active Implanted Port Access [RC] QSHIFT Care 10/19/17 12:24 Active Orthostatic Vital Signs [RC] ASDIRECTED Care 10/19/17 12:24 Active Oxygen Therapy, ED [RC] ASDIRECTED Care 10/19/17 12:22 Active Pulse Oximetry [RC] ASDIRECTED Care 10/19/17 12:22 Active Telemetry Monitoring [Cardiac Monitoring] [RC] . Care 10/19/17 15:12 Active DIRECTED ADA Diabetic [[place] [employer] Diet] [DIET Diet 10/20/17 Breakfast Active ] CULTURE URINE [RM] Stat Lab 10/19/17 12:23 Received LACTIC ACID,WHOLE BLOOD [BG] Q6H Lab 10/19/17 23:15 Ordered LACTIC ACID,WHOLE BLOOD [BG] Q6H Lab 10/20/17 05:15 Ordered LACTIC ACID,WHOLE BLOOD [BG] Q6H Lab 10/20/17 11:15 Ordered UA W/MICROSCOPIC [URIN] Stat Lab 10/19/17 12:23 Ordered Acetaminophen [Tylenol] Med 10/19/17 20:45 Ordered 650 mg PO Q4H PRN Clopidogrel [Plavix] Med 10/20/17 09:00 Ordered 75 mg PO DAILY Insulin Aspart [NovoLOG] Med 10/20/17 07:30 Active See Protocol SUBCUT TIDAC Insulin Glarg,Human.Rec.Analog [LantUS Solostar] Med 10/19/17 21:00 Active 48 units SUBCUT BEDTIME Levofloxacin/Dextrose 5%-Water [Levaquin in D5W 250 MG/ Med 10/20/17 14:00 Active 50 ML] 250 mg Premix Bag 1 bag IV Q24H Ondansetron [Zofran] Med 10/19/17 20:46 Ordered 4 mg IVPUSH Q3H PRN Pantoprazole [ProTONIX] Med 10/20/17 09:00 Ordered 40 mg PO DAILY Sodium Chloride 0.9% [Normal Saline] 1,000 ml Med 10/19/17 13:15 Active IV ASDIRECTED Sodium Chloride 0.9% [Normal Saline] 250 ml Med 10/19/17 12:30 Active IV STAT atorvaSTATin [Lipitor] Med 10/19/17 21:00 Ordered 80 mg PO BEDTIME predniSONE Med 10/20/17 08:00 Ordered 35 mg PO WITHBREAKFAST Medication Orders Acetaminophen (Tylenol) 650 mg PO Q4H PRN PRN Reason: Pain Clopidogrel Bisulfate (Plavix) 75 mg PO DAILY [facility] Sodium Chloride (Normal Saline) 250 mls @ 999 mls/hr IV STAT [facility] Last Admin: 10/19/17 13:42 Dose: 999 mls/hr Sodium Chloride (Normal Saline) 1,000 mls @ 100 mls/hr IV ASDIRECTED [facility] Last Admin: 10/19/17 18:37 Dose: 100 mls/hr Infusion: 10/19/17 18:37 Dose: 100 mls/hr Admin: 10/19/17 13:40 Dose: 100 mls/hr Levofloxacin/Dextrose 250 mg/ (Premix) 50 mls @ 50 mls/hr IV Q24H [facility] Insulin Aspart (Novolog) 0 unit SUBCUT TIDAC [facility]; Protocol Insulin Glargine (Lantus Solostar) 48 units SUBCUT BEDTIME [facility] Non-Formulary Medication (Atorvastatin [Lipitor]) 80 mg PO BEDTIME [facility] Ondansetron HCl (Zofran) 4 mg IVPUSH Q3H PRN PRN Reason: Nausea/Vomiting Pantoprazole Sodium (Protonix) 40 mg PO DAILY [facility] Prednisone (Prednisone) 35 mg PO WITHBREAKFAST [facility] Assessment/Plan Comment:: 67 yo female admitted with orthostatic hypotension likely due to dehydration or polypharmacy. We will hydrate with IV fluids and treat UTI with levaquin
[2017-10-19] MEDS ORDERED: atorvaSTATin 40 MG Tab PO SCH (21:00)
[2017-10-19] MEDS ORDERED: Insulin Glargine,Human Rec. Analog 100 Units/ML 3 ML Pen SUBCUT SCH ×2 (21:00)
[2017-10-20] MEDS: Insulin Aspart 100 Units/ML 3 ML Pen SUBCUT SCH ×2 (06:57→14:13)
[2017-10-20] MEDS ORDERED: Pantoprazole 40 MG Tab.CR PO SCH (07:30)
[2017-10-20] MEDS ORDERED: predniSONE 5 MG Tab PO SCH (08:00)
[2017-10-20] MEDS ORDERED: predniSONE 20 MG Tab PO SCH (08:00)
[2017-10-20] MEDS ORDERED: Clopidogrel 75 MG Tab PO SCH (09:00)
[2017-10-20] MEDS ORDERED: Potassium Chloride 20 MEQ Tab.ER PO ONE (09:36)
[2017-10-20] MEDS ORDERED: Nitrofurantoin Monohydrate/Macrocrystalline 100 MG Cap PO SCH (09:45)
[2017-10-20] MEDS ORDERED: Sodium Chloride 0.9% 1,000 ML IV ONE (09:47)
--- NOTE | 2017-10-20 11:49 | PCM.DCSUM1 ---
<Baluch,Shun - Last Filed: 10/20/17 12:34> Discharge Summary - Hospital Course Free Text/Narrative:: 67 yo fm with hx CAD s/p CABG, HTN, DM, Unspecified Brainstem Lesion admitted for dehydration, hypotension and KIM. She is also on Chronic Prednisone for her brainstem lesion. She was admitted from 10/19/17 to 10/20/17. She presented to the ED with initial BP of 60-70/30-40. She was started on IVF and BP improved rapidly. Orthostatic vitals performed after initial IVF fluid administration were positive for orthostasis. Following day her KIM improved and she was feeling back to baseline. She was requesting discharge home. She was informed that she is on multiple medications that can cause orthostatic hypotension however since these medications were started at [facility] from her previous dizziness and she has been on these medications for a while and this is her first episode of dizziness decision was made to not stop any medications. She will have f/u arranged with her pcp to review medications. #Orthostatic Hypotension, improved #Hypotension, improved -likely multifactorial secondary to dehydration and polypharmacy -f/u with pcp to review medications #KIM, improved -renal function at admission: BUN 34, Cr 1.5, GFR 35 -renal function at discharge: BUN 26, Cr 1.1, GFR 50 -prior to discharge patient given additional 1L NS bolus after discharge labs mention above -encourage PO fluids -f/u with PCP #UTI -patient had UTI on 12/30/16 that was treated with Levofloxacin which culture later grew Enterrococcus Faecalis with resistance to Levaquin -UA today equivocal but patient states she feels mild urinary discomfort -UC ordered awaiting results -treat with Marcobid 100 mg BID for 5 days - Discharge Data Discharge Date: 10/20/17 Discharge Disposition: Home, Self-Care 01 Condition: Good - Patient Summary/Data Labs Pending at D/C: Urine culture - Patient Instructions Diet: Usual Diet as Tolerated Activity: As Tolerated Notify Provider of: Fever, Increased Pain, Swelling and Redness, Drainage, Nausea and/or Vomiting - Discharge Plan Prescriptions/Med Rec: Nitrofurantoin [place]/Macrocryst [Nitrofurantoin [place]-MCR] 100 mg PO BID 5 Days # 9 cap Home Medications: Home Meds ALPRAZolam [Xanax] 0.25 mg PO DAILY PRN 06/18/17 [History] Clopidogrel [Plavix] 75 mg PO DAILY 06/18/17 [History] Insulin Aspart [NovoLOG] 5 unit SUBCUT TIDAC 06/18/17 [History] Losartan [Cozaar] 12.5 mg PO BEDTIME 06/18/17 [History] Meclizine [Antivert] 12.5 mg PO TID PRN 06/18/17 [History] Melatonin 3 mg PO DAILY 06/18/17 [History] Nitroglycerin [Nitrostat] 0.4 mg SL ASDIRECTED PRN 06/18/17 [History] Sennosides/Docusate Sodium [Senna-S] 2 tab PO BEDTIME 06/18/17 [History] Sulfamethoxazole/Trimethoprim [Bactrim Ds Tablet] 1 each PO DAILY 06/18/17 [ History] atorvaSTATin [Lipitor] 80 mg PO BEDTIME 06/18/17 [History] oxyCODONE 5 mg PO ASDIRECTED PRN 06/18/17 [History] Albuterol [Ventolin HFA] 2 puff INH Q6H PRN 10/19/17 [History] Amitriptyline [Elavil] 10 mg PO BEDTIME 10/19/17 [History] Calcium Carb & Citrate/Vit D3 [Calcium + D3 ER Tablet] 1 tab PO DAILY 10/19/17 [ History] Carvedilol 3.125 mg PO BIDMEALS 10/19/17 [History] DULoxetine [Cymbalta] 60 mg PO DAILY 10/19/17 [History] Desvenlafaxine [Desvenlafaxine ER] 100 mg PO DAILY 10/19/17 [History] Furosemide 40 mg PO DAILY PRN 10/19/17 [History] Gabapentin [Neurontin] 300 mg PO TID 10/19/17 [History] Gemfibrozil 600 mg PO BIDMEALS 10/19/17 [History] Insulin Degludec [Tresiba Flextouch U-200] 48 unit SQ DAILY 10/19/17 [History] Ipratropium [Atrovent 0.06% Nasal [place]] 2 spray NASBOTH BID 10/19/17 [History] Promethazine [Phenergan] 25 - 50 mg PO Q8H PRN 10/19/17 [History] predniSONE [Prednisone] 100 mg PO ASDIRECTED 10/19/17 [History] Nitrofurantoin [place]/Macrocryst [Nitrofurantoin [place]-MCR] 100 mg PO BID 5 Days # 9 cap 10/20/17 [Rx] Patient Handouts: Orthostatic Hypotension, Nitrofurantoin tablets or capsules, Urinary Tract Infection, Adult, [id number] Referrals: Salvador Gonzáles MD [Ordering Only Provider] - 10/27/17 12:30 pm - Discharge Summary/Plan Comment DC Time >30 min.: No - General Info Functional Status: Reports: Pain Controlled, Tolerating Diet, Ambulating, Urinating - Review of Systems General: Reports: No Symptoms HEENT: Reports: No Symptoms Pulmonary: Reports: No Symptoms Cardiovascular: Reports: No Symptoms Gastrointestinal: Reports: No Symptoms Genitourinary: Reports: No Symptoms Musculoskeletal: Reports: No Symptoms Skin: Reports: No Symptoms Neurological: Reports: No Symptoms Psychiatric: Reports: No Symptoms - Patient Data Vitals - Most Recent: Last Vital Signs Temp 36.5 C 10/20/17 04:00 Pulse 96 10/20/17 04:00 Resp 18 10/20/17 04:00 BP 112/75 10/20/17 04:00 Pulse Ox 97 10/20/17 04:00 Orthostatic Blood Pressure [ 82/58 Standing] Orthostatic Blood Pressure [ 104/70 Sitting] Orthostatic Blood Pressure [ 112/75 Supine] Weight - Most Recent: 97.522 kg I&O - Last 24 hours: Intake & Output 10/19/17 10/20/17 10/20/17 22:59 06:59 14:59 Intake Total 300 Output Total 1650 Balance -1350 Lab Results - Last 24 hrs: Laboratory Results - last 24 hr 10/19/17 10/19/17 10/19/17 Range/Units 12:23 12:43 12:43 WBC 7.68 (4.0-11.0) K/uL RBC 4.58 (4.30-5.90) M/uL Hgb 14.6 (12.0-16.0) g/dL Hct 42.2 (36.0-46.0) % MCV 92.1 (80.0-98.0) fL MCH 31.9 (27.0-32.0) pg MCHC 34.6 (31.0-37.0) g/dL RDW Std Deviation 47.2 (28.0-62.0) fl RDW Coeff of [place] 14 (11.0-15.0) % Plt Count 197 (150-400) K/uL MPV 10.10 (7.40-12.00) fL Neut % (Auto) 74.2 (48.0-80.0) % Lymph % (Auto) 20.7 (16.0-40.0) % [place] % (Auto) 4.9 (0.0-15.0) % Eos % (Auto) 0.1 (0.0-7.0) % Baso % (Auto) 0.1 (0.0-1.5) % Neut # (Auto) 5.7 (1.4-5.7) K/uL Lymph # (Auto) 1.6 (0.6-2.4) K/uL [place] # (Auto) 0.4 (0.0-0.8) K/uL Eos # (Auto) 0.0 (0.0-0.7) K/uL Baso # (Auto) 0.0 (0.0-0.1) K/uL Nucleated RBC % 0.0 /100WBC Nucleated RBCs # 0 K/uL Lactate 2.9 H (0.20-2.00) mmol/L Sodium (136-145) mmol/L Potassium (3.5-5.1) mmol/L Chloride (98-107) mmol/L Carbon Dioxide (21.0-32.0) mmol/L BUN (7.0-18.0) mg/dL Creatinine (0.6-1.0) mg/dL Est Cr Clr Drug Dosing mL/min Estimated GFR (MDRD) ml/min Glucose (74-106) mg/dL POC Glucose (60-110) mg/dL Calcium (8.5-10.1) mg/dL Total Bilirubin (0.2-1.0) mg/dL AST (15-37) IU/L ALT (14-63) IU/L Alkaline Phosphatase (46-116) U/L Troponin I (0.000-0.056) ng/mL Total Protein (6.4-8.2) g/dL Albumin (3.4-5.0) g/dL Globulin (2.0-3.5) g/dL Albumin/Globulin Ratio (1.3-2.8) Urine Color YELLOW Urine Appearance CLEAR Urine pH 6.0 (5.0-8.0) Ur Specific [place] 1.015 (1.001-1.035) Urine Protein NEGATIVE (NEGATIVE) mg/dL Urine Glucose (UA) >=1000 (NEGATIVE) mg/dL Urine Ketones NEGATIVE (NEGATIVE) mg/dL Urine Occult Blood TRACE-LYSED (NEGATIVE) Urine Nitrite NEGATIVE (NEGATIVE) Urine Bilirubin NEGATIVE (NEGATIVE) Urine Urobilinogen 0.2 (<2.0) EU/dL Ur Leukocyte Esterase SMALL (NEGATIVE) Urine RBC 0-2 (0-2/HPF) Urine WBC 6-8 (0-5/HPF) Ur Epithelial Cells FEW (NONE-FEW) Urine Bacteria FEW (NEGATIVE) 10/19/17 10/19/17 10/19/17 Range/Units 12:43 17:28 21:30 WBC (4.0-11.0) K/uL RBC (4.30-5.90) M/uL Hgb (12.0-16.0) g/dL Hct (36.0-46.0) % MCV (80.0-98.0) fL MCH (27.0-32.0) pg MCHC (31.0-37.0) g/dL RDW Std Deviation (28.0-62.0) fl RDW Coeff of [place] (11.0-15.0) % Plt Count (150-400) K/uL MPV (7.40-12.00) fL Neut % (Auto) (48.0-80.0) % Lymph % (Auto) (16.0-40.0) % [place] % (Auto) (0.0-15.0) % Eos % (Auto) (0.0-7.0) % Baso % (Auto) (0.0-1.5) % Neut # (Auto) (1.4-5.7) K/uL Lymph # (Auto) (0.6-2.4) K/uL [place] # (Auto) (0.0-0.8) K/uL Eos # (Auto) (0.0-0.7) K/uL Baso # (Auto) (0.0-0.1) K/uL Nucleated RBC % /100WBC Nucleated RBCs # K/uL Lactate 3.1 H (0.20-2.00) mmol/L Sodium 137 (136-145) mmol/L Potassium 3.7 (3.5-5.1) mmol/L Chloride 98 (98-107) mmol/L Carbon Dioxide 28.8 (21.0-32.0) mmol/L BUN 34 H (7.0-18.0) mg/dL Creatinine 1.5 H (0.6-1.0) mg/dL Est Cr Clr Drug Dosing 36.36 mL/min Estimated GFR (MDRD) 34.9 ml/min Glucose 312 H (74-106) mg/dL POC Glucose 315 H (60-110) mg/dL Calcium 8.9 (8.5-10.1) mg/dL Total Bilirubin 0.6 (0.2-1.0) mg/dL AST 12 L (15-37) IU/L ALT 18 (14-63) IU/L Alkaline Phosphatase 91 (46-116) U/L Troponin I < 0.050 (0.000-0.056) ng/mL Total Protein 5.6 L (6.4-8.2) g/dL Albumin 2.3 L (3.4-5.0) g/dL Globulin 3.3 (2.0-3.5) g/dL Albumin/Globulin Ratio 0.7 L (1.3-2.8) Urine Color Urine Appearance Urine pH (5.0-8.0) Ur Specific [place] (1.001-1.035) Urine Protein (NEGATIVE) mg/dL Urine Glucose (UA) (NEGATIVE) mg/dL Urine Ketones (NEGATIVE) mg/dL Urine Occult Blood (NEGATIVE) Urine Nitrite (NEGATIVE) Urine Bilirubin (NEGATIVE) Urine Urobilinogen (<2.0) EU/dL Ur Leukocyte Esterase (NEGATIVE) Urine RBC (0-2/HPF) Urine WBC (0-5/HPF) Ur Epithelial Cells (NONE-FEW) Urine Bacteria (NEGATIVE) 10/19/17 10/20/17 10/20/17 Range/Units 23:15 05:40 05:40 WBC 7.42 (4.0-11.0) K/uL RBC 4.05 L (4.30-5.90) M/uL Hgb 12.8 (12.0-16.0) g/dL Hct 37.7 (36.0-46.0) % MCV 93.1 (80.0-98.0) fL MCH 31.6 (27.0-32.0) pg MCHC 34.0 (31.0-37.0) g/dL RDW Std Deviation 48.0 (28.0-62.0) fl RDW Coeff of [place] 14 (11.0-15.0) % Plt Count 177 (150-400) K/uL MPV 9.70 (7.40-12.00) fL Neut % (Auto) 42.5 L (48.0-80.0) % Lymph % (Auto) 45.6 H (16.0-40.0) % [place] % (Auto) 11.1 (0.0-15.0) % Eos % (Auto) 0.5 (0.0-7.0) % Baso % (Auto) 0.3 (0.0-1.5) % Neut # (Auto) 3.2 (1.4-5.7) K/uL Lymph # (Auto) 3.4 H (0.6-2.4) K/uL [place] # (Auto) 0.8 (0.0-0.8) K/uL Eos # (Auto) 0.0 (0.0-0.7) K/uL Baso # (Auto) 0.0 (0.0-0.1) K/uL Nucleated RBC % 0.0 /100WBC Nucleated RBCs # 0 K/uL Lactate 2.0 (0.20-2.00) mmol/L Sodium 142 (136-145) mmol/L Potassium 3.2 L (3.5-5.1) mmol/L Chloride 108 H (98-107) mmol/L Carbon Dioxide 28.2 (21.0-32.0) mmol/L BUN 26 H (7.0-18.0) mg/dL Creatinine 1.1 H (0.6-1.0) mg/dL Est Cr Clr Drug Dosing 49.58 mL/min Estimated GFR (MDRD) 49.8 ml/min Glucose 122 H (74-106) mg/dL POC Glucose (60-110) mg/dL Calcium 8.0 L (8.5-10.1) mg/dL Total Bilirubin (0.2-1.0) mg/dL AST (15-37) IU/L ALT (14-63) IU/L Alkaline Phosphatase (46-116) U/L Troponin I (0.000-0.056) ng/mL Total Protein (6.4-8.2) g/dL Albumin (3.4-5.0) g/dL Globulin (2.0-3.5) g/dL Albumin/Globulin Ratio (1.3-2.8) Urine Color Urine Appearance Urine pH (5.0-8.0) Ur Specific [place] (1.001-1.035) Urine Protein (NEGATIVE) mg/dL Urine Glucose (UA) (NEGATIVE) mg/dL Urine Ketones (NEGATIVE) mg/dL Urine Occult Blood (NEGATIVE) Urine Nitrite (NEGATIVE) Urine Bilirubin (NEGATIVE) Urine Urobilinogen (<2.0) EU/dL Ur Leukocyte Esterase (NEGATIVE) Urine RBC (0-2/HPF) Urine WBC (0-5/HPF) Ur Epithelial Cells (NONE-FEW) Urine Bacteria (NEGATIVE) 10/20/17 Range/Units 06:19 WBC (4.0-11.0) K/uL RBC (4.30-5.90) M/uL Hgb (12.0-16.0) g/dL Hct (36.0-46.0) % MCV (80.0-98.0) fL MCH (27.0-32.0) pg MCHC (31.0-37.0) g/dL RDW Std Deviation (28.0-62.0) fl RDW Coeff of [place] (11.0-15.0) % Plt Count (150-400) K/uL MPV (7.40-12.00) fL Neut % (Auto) (48.0-80.0) % Lymph % (Auto) (16.0-40.0) % [place] % (Auto) (0.0-15.0) % Eos % (Auto) (0.0-7.0) % Baso % (Auto) (0.0-1.5) % Neut # (Auto) (1.4-5.7) K/uL Lymph # (Auto) (0.6-2.4) K/uL [place] # (Auto) (0.0-0.8) K/uL Eos # (Auto) (0.0-0.7) K/uL Baso # (Auto) (0.0-0.1) K/uL Nucleated RBC % /100WBC Nucleated RBCs # K/uL Lactate (0.20-2.00) mmol/L Sodium (136-145) mmol/L Potassium (3.5-5.1) mmol/L Chloride (98-107) mmol/L Carbon Dioxide (21.0-32.0) mmol/L BUN (7.0-18.0) mg/dL Creatinine (0.6-1.0) mg/dL Est Cr Clr Drug Dosing mL/min Estimated GFR (MDRD) ml/min Glucose (74-106) mg/dL POC Glucose 82 (60-110) mg/dL Calcium (8.5-10.1) mg/dL Total Bilirubin (0.2-1.0) mg/dL AST (15-37) IU/L ALT (14-63) IU/L Alkaline Phosphatase (46-116) U/L Troponin I (0.000-0.056) ng/mL Total Protein (6.4-8.2) g/dL Albumin (3.4-5.0) g/dL Globulin (2.0-3.5) g/dL Albumin/Globulin Ratio (1.3-2.8) Urine Color Urine Appearance Urine pH (5.0-8.0) Ur Specific [place] (1.001-1.035) Urine Protein (NEGATIVE) mg/dL Urine Glucose (UA) (NEGATIVE) mg/dL Urine Ketones (NEGATIVE) mg/dL Urine Occult Blood (NEGATIVE) Urine Nitrite (NEGATIVE) Urine Bilirubin (NEGATIVE) Urine Urobilinogen (<2.0) EU/dL Ur Leukocyte Esterase (NEGATIVE) Urine RBC (0-2/HPF) Urine WBC (0-5/HPF) Ur Epithelial Cells (NONE-FEW) Urine Bacteria (NEGATIVE) Med Orders - Current: Current Medications Acetaminophen (Tylenol) 650 mg PO Q4H PRN PRN Reason: Pain Atorvastatin Calcium (Lipitor) 80 mg PO BEDTIME [facility] Last Admin: 10/19/17 21:35 Dose: 80 mg Clopidogrel Bisulfate (Plavix) 75 mg PO DAILY [facility] Last Admin: 10/20/17 08:09 Dose: 75 mg Sodium Chloride (Normal Saline) 1,000 mls @ 150 mls/hr IV .BOLUS ONE Stop: 10/20/17 16:26 Last Admin: 10/20/17 10:42 Dose: 150 mls/hr Insulin Aspart (Novolog) 0 unit SUBCUT TIDAC [facility]; Protocol Last Admin: 10/20/17 06:57 Dose: Not Given Insulin Glargine (Lantus Solostar) 50 units SUBCUT BEDTIME [facility] Last Admin: 10/19/17 21:34 Dose: 50 units Nitrofurantoin Macrocrystals (Macrobid) 100 mg PO BID [facility] Last Admin: 10/20/17 10:42 Dose: 100 mg Ondansetron HCl (Zofran) 4 mg IVPUSH Q3H PRN PRN Reason: Nausea/Vomiting Pantoprazole Sodium (Protonix) 40 mg PO ACBREAKFAST [facility] Last Admin: 10/20/17 06:43 Dose: 40 mg Prednisone (Prednisone) 30 mg PO WITHBREAKFAST [facility] Last Admin: 10/20/17 08:07 Dose: 30 mg Prednisone (Prednisone) 5 mg PO WITHBREAKFAST [facility] Last Admin: 10/20/17 08:08 Dose: 5 mg Discontinued Medications Sodium Chloride (Normal Saline) 250 mls @ 999 mls/hr IV STAT [facility] Last Admin: 10/19/17 13:42 Dose: 999 mls/hr Sodium Chloride (Normal Saline) 1,000 mls @ 100 mls/hr IV ASDIRECTED [facility] Last Admin: 10/19/17 18:37 Dose: 100 mls/hr Levofloxacin/Dextrose 500 mg/ (Premix) 100 mls @ 100 mls/hr IV ONETIME ONE Stop: 10/19/17 15:28 Last Admin: 10/19/17 14:39 Dose: 100 mls/hr Sodium Chloride (Normal Saline) 1,000 mls @ 999 mls/hr IV ONETIME ONE Stop: 10/19/17 20:46 Last Admin: 10/19/17 20:21 Dose: 999 mls/hr Levofloxacin/Dextrose 500 mg/ (Premix) 100 mls @ 100 mls/hr IV Q24H [facility] Levofloxacin/Dextrose 250 mg/ (Premix) 50 mls @ 50 mls/hr IV Q24H [facility] Insulin Glargine (Lantus Solostar) 48 units SUBCUT BEDTIME [facility] Potassium Chloride (Klor-Con M20) 40 meq PO ONETIME ONE Stop: 10/20/17 09:37 Last Admin: 10/20/17 10:41 Dose: 40 meq - Exam General: Reports: Alert, Oriented HEENT: Reports: Pupils Equal, Pupils Reactive, EOMI, Mucous Membr. Moist/[place] Neck: Reports: Supple, No JVD Lungs: Reports: Clear to Auscultation, Normal Respiratory Effort Cardiovascular: Reports: Regular Rate, Regular Rhythm GI/Abdominal Exam: Normal Bowel Sounds, Soft, Non-Tender, No Organomegaly Back Exam: Reports: Normal Inspection Extremities: Normal Inspection, Normal Range of Motion, Non-Tender, No Pedal Edema, Normal Capillary Refill Skin: Reports: Warm, Dry, Intact Neurological: Reports: No New Focal Deficit Psy/Mental Status: Reports: Alert, Normal Affect, Normal Mood <Bubba Kerr - Last Filed: 10/22/17 08:45> - Patient Data Vitals - Most Recent: Last Vital Signs Temp 35.7 C 10/20/17 16:00 Pulse 105 H 10/20/17 16:00 Resp 22 H 10/20/17 16:00 BP 137/86 10/20/17 16:00 Pulse Ox 97 10/20/17 16:00 Orthostatic Blood Pressure [ 82/58 Standing] Orthostatic Blood Pressure [ 104/70 Sitting] Orthostatic Blood Pressure [ 112/75 Supine] JOSE MANUEL Results - Last 24 hrs: Microbiology 10/19/17 12:23 Urine Culture - Final Urine, Clean Catch MIXED JANIE >100,000 CFU/ML Med Orders - Current: Current Medications Discontinued Medications Acetaminophen (Tylenol) 650 mg PO Q4H PRN PRN Reason: Pain Atorvastatin Calcium (Lipitor) 80 mg PO BEDTIME [facility] Last Admin: 10/19/17 21:35 Dose: 80 mg Clopidogrel Bisulfate (Plavix) 75 mg PO DAILY [facility] Last Admin: 10/20/17 08:09 Dose: 75 mg Heparin Sodium (Porcine) (Heparin Lock Flush 100 Units/Ml) 300 units FLUSH ASDIRECTED PRN PRN Reason: PORT Last Admin: 10/20/17 16:30 Dose: 300 units Sodium Chloride (Normal Saline) 250 mls @ 999 mls/hr IV STAT [facility] Last Admin: 10/19/17 13:42 Dose: 999 mls/hr Sodium Chloride (Normal Saline) 1,000 mls @ 100 mls/hr IV ASDIRECTED [facility] Last Admin: 10/19/17 18:37 Dose: 100 mls/hr Levofloxacin/Dextrose 500 mg/ (Premix) 100 mls @ 100 mls/hr IV ONETIME ONE Stop: 10/19/17 15:28 Last Admin: 10/19/17 14:39 Dose: 100 mls/hr Sodium Chloride (Normal Saline) 1,000 mls @ 999 mls/hr IV ONETIME ONE Stop: 10/19/17 20:46 Last Admin: 10/19/17 20:21 Dose: 999 mls/hr Levofloxacin/Dextrose 500 mg/ (Premix) 100 mls @ 100 mls/hr IV Q24H [facility] Levofloxacin/Dextrose 250 mg/ (Premix) 50 mls @ 50 mls/hr IV Q24H [facility] Sodium Chloride (Normal Saline) 1,000 mls @ 200 mls/hr IV .BOLUS ONE Stop: 10/20/17 14:46 Last Admin: 10/20/17 10:42 Dose: 150 mls/hr Insulin Aspart (Novolog) 0 unit SUBCUT TIDAC [facility]; Protocol Last Admin: 10/20/17 14:13 Dose: 4 units Insulin Glargine (Lantus Solostar) 48 units SUBCUT BEDTIME [facility] Insulin Glargine (Lantus Solostar) 50 units SUBCUT BEDTIME [facility] Last Admin: 10/19/17 21:34 Dose: 50 units Nitrofurantoin Macrocrystals (Macrobid) 100 mg PO BID [facility] Last Admin: 10/20/17 10:42 Dose: 100 mg Ondansetron HCl (Zofran) 4 mg IVPUSH Q3H PRN PRN Reason: Nausea/Vomiting Pantoprazole Sodium (Protonix) 40 mg PO ACBREAKFAST [facility] Last Admin: 10/20/17 06:43 Dose: 40 mg Potassium Chloride (Klor-Con M20) 40 meq PO ONETIME ONE Stop: 10/20/17 09:37 Last Admin: 10/20/17 10:41 Dose: 40 meq Prednisone (Prednisone) 30 mg PO WITHBREAKFAST [facility] Last Admin: 10/20/17 08:07 Dose: 30 mg [facility] Last Admin: 10/20/17 08:08 Dose: 5 mg - Free Text/Narrative Note: I have examined the patient. I have discussed treatment plan with the resident. I agree with the assessment and plan outlined in the following resident's note.
[2017-10-20] MEDS ORDERED: Levofloxacin/Dextrose 5%-Water 250 MG in Premix Bag 1 BAG IV SCH (14:00)
[2017-10-20 16:13] VITALS: BP 137/86
== END 2017-10-20 16:30 | disposition home or self-care (01) ==
LOC: MW.ED 12:10 → MW.MS 15:28
PROVIDERS: ADMIT Internal Medicine; ATTEND Internal Medicine
DX: I95.1 Orthostatic hypotension (principal); N17.9 Acute kidney failure, unspecified; E86.0 Dehydration; I25.10 Atherosclerotic heart disease of native coronary artery without angina pectoris; I10 Essential (primary) hypertension; E11.9 Type 2 diabetes mellitus without complications; G93.89 Other specified disorders of brain; N39.0 Urinary tract infection, site not specified; G47.30 Sleep apnea, unspecified; F41.9 Anxiety disorder, unspecified; F32.9 Major depressive disorder, single episode, unspecified; I69.334 Monoplegia of upper limb following cerebral infarction affecting left non-dominant side; Z90.49 Acquired absence of other specified parts of digestive tract; Z95.1 Presence of aortocoronary bypass graft; Z79.899 Other long term (current) drug therapy; Z79.02 Long term (current) use of antithrombotics/antiplatelets; Z79.4 Long term (current) use of insulin; Z88.0 Allergy status to penicillin; Z91.09 Other allergy status, other than to drugs and biological substances; Z98.890 Other specified postprocedural states
CPT/HCPCS: 36415; 70450; 70450-26; 71045; 71045-26; 80048; 80053; 81001; 82962; 83605; 84484; 85025; 87086; 93005; 96361; 96365; 99283; 99285-25; A9270-GY; G0378; J1642; J1815-GY ×2; J1956; J7040; J7050

== ENCOUNTER 2017-12-08 13:51 | Emergency (ER) | payer MEDICARE, OTHER ==
[2017-12-08] MEDS ORDERED: Sodium Chloride 0.9% 2.5 ML Syringe FLUSH PRN (14:00)
[2017-12-08] MEDS ORDERED: Sodium Chloride 0.9% 10 ML Syringe FLUSH PRN (14:00)
[2017-12-08] MEDS ORDERED: Aspirin 81 MG Tab.Chew PO ONE (14:00)
[2017-12-08] MEDS ORDERED: Ondansetron 4 MG/2 ML SDV IVPUSH ONE (14:42)
--- NOTE | 2017-12-08 14:58 | CR ---
EXAMINATION: Portable chest radiograph. HISTORY: Chest pain. Comparison: 10/19/2014. FINDINGS: The trachea is midline. The cardiomediastinal silhouette is within normal limits. No pulmonary infilt rates, effusions or pneumothorax. Right-sided portacatheter is noted. Median sternotomy wires are nee ded. Osseous structures appear unremarkable. IMPRESSION: No acute cardiopulmonary process.
[2017-12-08] MEDS ORDERED: Sodium Chloride 0.9% 1,000 ML IV SCH ×2 (15:00)
[2017-12-08] MEDS ORDERED: Sodium Chloride 0.9% 250 ML IV SCH (15:00)
--- NOTE | 2017-12-08 15:07 | EDM.PDOC ---
ED HPI GENERAL MEDICAL PROBLEM - General Chief Complaint: Chest Pain Stated Complaint: CHEST PAIN Time Seen by Provider: 12/08/17 14:59 Source of Information: Reports: Patient History Limitations: Reports: No Limitations - History of Present Illness INITIAL COMMENTS - FREE TEXT/NARRATIVE: HISTORY AND PHYSICAL: History of present illness: Patient is a 67-year-old female who presents to the ED today for right lower abdominal pain. She states that the pain started over the past couple weeks, but yesterday got progressively worse. She describes it as sharp and rates her pain a 3 out of 10 in her abdomen. She states that she also has a bruise on her abdomen with a little bump underneath it. She states that she does inject insulin into her abdomen for her diabetes. She is currently on Plavix. Furthermore, she states that she has had a few episodes of vomiting. He states she had about 2-3 episodes last night and another episode today on her way into the ED. She denies a change in her bowel movements or blood in her stool. She also states that she has pain in her chest and in her lower back. She also describes these as sharp and rates it as 3 out of 10. The most bothersome to her today is her nausea. She denies fever, chills, chest tightness, or weight changes. She denies shortness of breath, dyspnea, syncope, or diaphoresis. She has a history of insulin-dependent diabetes, CAD s/p triple bypass, lymphoma currently with port placement, Review of systems: As per history of present illness and below otherwise all systems reviewed and negative. Past medical history: As per history of present illness and as reviewed below otherwise noncontributory. Surgical history: As per history of present illness and as reviewed below otherwise noncontributory. Social history: No reported history of drug or alcohol abuse. Family history: As per history of present illness and as reviewed below otherwise noncontributory. Physical exam: General: Patient lying comfortably in bed in no acute distress HEENT: Atraumatic, normocephalic, pupils reactive, negative for conjunctival pallor or scleral icterus, mucous membranes moist. Lungs: Clear to auscultation, breath sounds equal bilaterally, chest nontender. Heart: S1S2, regular, negative for clicks, rubs, or JVD. Abdomen: 8x4cm area of ecchymosis to her left abdomen with a 1cm subcutaneous nodule felt. Soft, nondistended, Negative for masses or hepatosplenomegaly. Negative for costovertebral tenderness. Pelvis: Stable nontender. Genitourinary: Deferred. Rectal: Deferred. Extremities: Atraumatic, negative for cords or calf pain. Neurovascular unremarkable. Neuro: Awake, alert, oriented. Cranial nerves II through XII unremarkable. Cerebellum unremarkable. Motor and sensory unremarkable throughout. Exam nonfocal. Notes: Diagnostics: CBC, CMP, UA, PT/INR EKG Abdominal/pelvis CT w/o contrast Therapeutics: 1L Normal saline IV Impression: Abdominal wall contusion Plan: #1 Drink plenty of fluids as discussed #2 Follow up with primary care provider #3 Return to ED as needed as discussed Definitive disposition and diagnosis as appropriate pending reevaluation and review of above. chest Pain Score (Numeric/FACES): 3 abdomen Pain Score (Numeric/FACES): 3 - Related Data Allergies Allergy/AdvReac Type Severity Reaction Status Date / Time Penicillins Allergy Severe Cannot Verified 12/08/17 13:59 Remember silver Allergy Rash Verified 12/08/17 13:59 [From Tegaderm AG Mesh] Home Meds: Home Meds ALPRAZolam [Xanax] 0.25 mg PO DAILY PRN 06/18/17 [History] Clopidogrel [Plavix] 75 mg PO DAILY 06/18/17 [History] Insulin Aspart [NovoLOG] 10 - 15 unit SUBCUT TIDAC 06/18/17 [History] Losartan [Cozaar] 12.5 mg PO BEDTIME 06/18/17 [History] Meclizine [Antivert] 12.5 mg PO TID PRN 06/18/17 [History] Melatonin 6 mg PO DAILY 06/18/17 [History] Nitroglycerin [Nitrostat] 0.4 mg SL ASDIRECTED PRN 06/18/17 [History] Sennosides/Docusate Sodium [Senna-S] 2 tab PO BEDTIME 06/18/17 [History] atorvaSTATin [Lipitor] 80 mg PO BEDTIME 06/18/17 [History] oxyCODONE 5 mg PO Q4H PRN 06/18/17 [History] Albuterol [Ventolin HFA] 2 puff INH Q6H PRN 10/19/17 [History] Amitriptyline [Elavil] 10 mg PO BEDTIME 10/19/17 [History] Calcium Carb & Citrate/Vit D3 [Calcium + D3 ER Tablet] 1 tab PO DAILY 10/19/17 [ History] Carvedilol 3.125 mg PO BIDMEALS 10/19/17 [History] DULoxetine [Cymbalta] 60 mg PO DAILY 10/19/17 [History] Desvenlafaxine [Desvenlafaxine ER] 100 mg PO DAILY 10/19/17 [History] Furosemide 40 mg PO DAILY PRN 10/19/17 [History] Gabapentin [Neurontin] 300 mg PO TID 10/19/17 [History] Gemfibrozil 600 mg PO BIDMEALS 10/19/17 [History] Insulin Degludec [Tresiba Flextouch U-200] 48 unit SQ DAILY 10/19/17 [History] Ipratropium [Atrovent 0.06% Nasal [place]] 2 spray NASBOTH BID 10/19/17 [History] Promethazine [Phenergan] 25 - 50 mg PO Q8H PRN 10/19/17 [History] predniSONE [Prednisone] 100 mg PO ASDIRECTED 10/19/17 [History] Clotrimazole [Clotrimazole 1%] 1 applic TOP BID 12/08/17 [History] InFLIXimab [Remicade] 500 mg IV WEEKLY 12/08/17 [History] Insulin Glargine,Hum.Rec.Anlog [Basaglar Kwikpen U-100] 40 units SQ DAILY [History] Ondansetron HCl [Zofran] 4 mg PO DAILY PRN 12/08/17 [History] Past Medical History HEENT History: Reports: Impaired Vision Cardiovascular History: Reports: Angina, Bypass, Hypertension, Stents Other Cardiovascular History: 'partial heart' Respiratory History: Reports: Sleep Apnea Other Respiratory History: pneumonia [employer] History: Reports: Musculoskeletal History: Reports: Fracture Other Musculoskeletal History: Lower back fracture, Ribs Neurological History: Reports: Concussion, CVA, Headaches, Chronic, Head Trauma , Vertigo, Other (See Below) Other Neuro History: brainstem and spinal cord lesions. stroke in the passed 6 months. stroke affecting left arm. numbnessl to left arm. Psychiatric History: Reports: Anxiety, Depression Endocrine/Metabolic History: Reports: Diabetes, Type II Hematologic History: Reports: Other (See Below) Other Hematologic History: Easy bruising, not on anticoagulant therapy Oncologic (Cancer) History: Reports: Lymphoma - Infectious Disease History Infectious Disease History: Reports: Chicken Pox, Measles, Mononucleosis, Mumps - Past Surgical History HEENT Surgical History: Reports: Adenoidectomy, Cataract Surgery, Tonsillectomy , Other (See Below) Other HEENT Surgeries/Procedures: Sinus surgery, blepheroplasty Other Cardiovascular Surgeries/Procedures: 3 bypasses, 10 stents GI Surgical History: Reports: Cholecystectomy Neurological Surgical History: Reports: None Musculoskeletal Surgical History: Reports: Carpal Tunnel Social & Family History - Family History Family Medical History: Noncontributory - Caffeine Use Caffeine Use: Reports: Coffee ED ROS GENERAL - Review of Systems Review Of Systems: ROS reveals no pertinent complaints other than HPI. ED EXAM, GENERAL - Physical Exam Exam: See Below (see dictation) Course - Vital Signs Last Recorded V/S: Last Vital Signs Temp 36.6 C 12/08/17 13:59 Pulse 102 H 12/08/17 13:59 Resp 18 12/08/17 13:59 BP 117/73 12/08/17 13:59 Pulse Ox 97 12/08/17 13:59 - Orders/Labs/Meds Orders: Active Orders 24 hr Category Date Time Status Cardiac Monitoring [RC] . DIRECTED Care 12/08/17 14:00 Active EKG Documentation Completion [RC] STAT Care 12/08/17 14:00 Active Oxygen Therapy [RC] ASDIRECTED Care 12/08/17 14:00 Active Pulse Oximetry [RC] ASDIRECTED Care 12/08/17 14:00 Active CULTURE URINE [RM] Stat Lab 12/08/17 16:33 Received UA W/MICROSCOPIC [URIN] Stat Lab 12/08/17 16:33 Ordered Sodium Chloride 0.9% [Normal Saline] 1,000 ml Med 12/08/17 15:00 Active IV STAT Sodium Chloride 0.9% [Normal Saline] 250 ml Med 12/08/17 15:00 Active IV ASDIRECTED Sodium Chloride 0.9% [Saline Flush] Med 12/08/17 14:00 Active 10 ml FLUSH ASDIRECTED PRN Sodium Chloride 0.9% [Saline Flush] Med 12/08/17 14:00 Active 2.5 ml FLUSH ASDIRECTED PRN Saline Lock Insert [OM.PC] Stat Oth 12/08/17 14:00 Ordered Medication Orders Sodium Chloride (Normal Saline) 1,000 mls @ 250 mls/hr IV STAT CHANTE Last Admin: 12/08/17 14:54 Dose: 250 mls/hr Sodium Chloride (Normal Saline) 250 mls @ 250 mls/hr IV ASDIRECTED CHANTE Sodium Chloride (Saline Flush) 10 ml FLUSH ASDIRECTED PRN PRN Reason: Keep Vein Open Last Admin: 12/08/17 14:50 Dose: 10 ml Sodium Chloride (Saline Flush) 2.5 ml FLUSH ASDIRECTED PRN PRN Reason: Keep Vein Open Last Admin: 12/08/17 14:50 Dose: 2.5 ml Labs: Laboratory Tests 12/08/17 12/08/17 12/08/17 Range/Units 14:44 14:44 14:44 WBC 7.64 (4.0-11.0) K/uL RBC 4.41 (4.30-5.90) M/uL Hgb 13.8 (12.0-16.0) g/dL Hct 39.9 (36.0-46.0) % MCV 90.5 (80.0-98.0) fL MCH 31.3 (27.0-32.0) pg MCHC 34.6 (31.0-37.0) g/dL RDW Std Deviation 45.6 (28.0-62.0) fl RDW Coeff of [place] 14 (11.0-15.0) % Plt Count 191 (150-400) K/uL MPV 9.80 (7.40-12.00) fL Neut % (Auto) 38.8 L (48.0-80.0) % Lymph % (Auto) 50.1 H (16.0-40.0) % [place] % (Auto) 10.3 (0.0-15.0) % Eos % (Auto) 0.5 (0.0-7.0) % Baso % (Auto) 0.3 (0.0-1.5) % Neut # (Auto) 3.0 (1.4-5.7) K/uL Lymph # (Auto) 3.8 H (0.6-2.4) K/uL [place] # (Auto) 0.8 (0.0-0.8) K/uL Eos # (Auto) 0.0 (0.0-0.7) K/uL Baso # (Auto) 0.0 (0.0-0.1) K/uL Nucleated RBC % 0.0 /100WBC Nucleated RBCs # 0 K/uL INR 0.98 Sodium 141 (136-145) mmol/L Potassium 3.6 (3.5-5.1) mmol/L Chloride 104 (98-107) mmol/L Carbon Dioxide 28.7 (21.0-32.0) mmol/L BUN 23 H (7.0-18.0) mg/dL Creatinine 1.4 H (0.6-1.0) mg/dL Est Cr Clr Drug Dosing 38.96 mL/min Estimated GFR (MDRD) 37.7 ml/min Glucose 115 H (74-106) mg/dL Calcium 9.2 (8.5-10.1) mg/dL Total Bilirubin 0.6 (0.2-1.0) mg/dL AST 31 (15-37) IU/L ALT 20 (14-63) IU/L Alkaline Phosphatase 81 (46-116) U/L Troponin I < 0.050 (0.000-0.056) ng/mL Total Protein 5.8 L (6.4-8.2) g/dL Albumin 2.6 L (3.4-5.0) g/dL Globulin 3.2 (2.0-3.5) g/dL Albumin/Globulin Ratio 0.8 L (1.3-2.8) Lipase 166 (73-393) U/L Urine Color Urine Appearance Urine pH (5.0-8.0) Ur Specific [place] (1.001-1.035) Urine Protein (NEGATIVE) mg/dL Urine Glucose (UA) (NEGATIVE) mg/dL Urine Ketones (NEGATIVE) mg/dL Urine Occult Blood (NEGATIVE) Urine Nitrite (NEGATIVE) Urine Bilirubin (NEGATIVE) Urine Urobilinogen (<2.0) EU/dL Ur Leukocyte Esterase (NEGATIVE) Urine RBC (0-2/HPF) Urine WBC (0-5/HPF) Ur Epithelial Cells (NONE-FEW) Urine Bacteria (NEGATIVE) 12/08/17 Range/Units 16:33 WBC (4.0-11.0) K/uL RBC (4.30-5.90) M/uL Hgb (12.0-16.0) g/dL Hct (36.0-46.0) % MCV (80.0-98.0) fL MCH (27.0-32.0) pg MCHC (31.0-37.0) g/dL RDW Std Deviation (28.0-62.0) fl RDW Coeff of [place]anza (11.0-15.0) % Plt Count (150-400) K/uL MPV (7.40-12.00) fL Neut % (Auto) (48.0-80.0) % Lymph % (Auto) (16.0-40.0) % [place] % (Auto) (0.0-15.0) % Eos % (Auto) (0.0-7.0) % Baso % (Auto) (0.0-1.5) % Neut # (Auto) (1.4-5.7) K/uL Lymph # (Auto) (0.6-2.4) K/uL [place] # (Auto) (0.0-0.8) K/uL Eos # (Auto) (0.0-0.7) K/uL Baso # (Auto) (0.0-0.1) K/uL Nucleated RBC % /100WBC Nucleated RBCs # K/uL INR Sodium (136-145) mmol/L Potassium (3.5-5.1) mmol/L Chloride (98-107) mmol/L Carbon Dioxide (21.0-32.0) mmol/L BUN (7.0-18.0) mg/dL Creatinine (0.6-1.0) mg/dL Est Cr Clr Drug Dosing mL/min Estimated GFR (MDRD) ml/min Glucose (74-106) mg/dL Calcium (8.5-10.1) mg/dL Total Bilirubin (0.2-1.0) mg/dL AST (15-37) IU/L ALT (14-63) IU/L Alkaline Phosphatase (46-116) U/L Troponin I (0.000-0.056) ng/mL Total Protein (6.4-8.2) g/dL Albumin (3.4-5.0) g/dL Globulin (2.0-3.5) g/dL Albumin/Globulin Ratio (1.3-2.8) Lipase (73-393) U/L Urine Color YELLOW Urine Appearance CLEAR Urine pH 5.5 (5.0-8.0) Ur Specific [place] 1.025 (1.001-1.035) Urine Protein NEGATIVE (NEGATIVE) mg/dL Urine Glucose (UA) NEGATIVE (NEGATIVE) mg/dL Urine Ketones NEGATIVE (NEGATIVE) mg/dL Urine Occult Blood NEGATIVE (NEGATIVE) Urine Nitrite NEGATIVE (NEGATIVE) Urine Bilirubin NEGATIVE (NEGATIVE) Urine Urobilinogen 0.2 (<2.0) EU/dL Ur Leukocyte Esterase TRACE (NEGATIVE) Urine RBC 0-1 (0-2/HPF) Urine WBC 1-2 (0-5/HPF) Ur Epithelial Cells FEW (NONE-FEW) Urine Bacteria FEW (NEGATIVE) Meds: Medications Generic Name Dose Route Start Last Admin Trade Name Freq PRN Reason Stop Dose Admin Sodium Chloride 1,000 mls @ 250 mls/hr 12/08/17 15:00 12/08/17 14:54 Normal Saline IV 250 mls/hr STAT CHANTE Administration Sodium Chloride 250 mls @ 250 mls/hr 12/08/17 15:00 Normal Saline IV ASDIRECTED CHANTE Sodium Chloride 10 ml 12/08/17 14:00 12/08/17 14:50 Saline Flush FLUSH 10 ml ASDIRECTED PRN Administration Keep Vein Open Sodium Chloride 2.5 ml 12/08/17 14:00 12/08/17 14:50 Saline Flush FLUSH 2.5 ml ASDIRECTED PRN Administration Keep Vein Open Discontinued Medications Generic Name Dose Route Start Last Admin Trade Name Freq PRN Reason Stop Dose Admin Aspirin 324 mg 12/08/17 14:00 12/08/17 14:26 Aspirin PO 12/08/17 14:01 324 mg ONETIME ONE Administration Ondansetron HCl 4 mg 12/08/17 14:42 12/08/17 14:50 Zofran IVPUSH 12/08/17 14:43 4 mg ONETIME ONE Administration Departure - Departure Time of Disposition: 17:22 Disposition: Home, Self-Care 01 Condition: Good Clinical Impression: Abdominal wall contusion Referrals: Salvador Gonzáles MD [Primary Care Provider] - Forms: ED Department Discharge Additional Instructions: The following information is given to patients seen in the emergency department who are being discharged to home. This information is to outline your options for follow-up care. We provide all patients seen in our emergency department with a follow-up referral. The need for follow-up, as well as the timing and circumstances, are variable depending upon the specifics of your emergency department visit. If you don't have a primary care physician on staff, we will provide you with a referral. We always advise you to contact your personal physician following an emergency department visit to inform them of the circumstance of the visit and for follow-up with them and/or the need for any referrals to a consulting specialist. The emergency department will also refer you to a specialist when appropriate. This referral assures that you have the opportunity for follow-up care with a specialist. All of these measure are taken in an effort to provide you with optimal care, which includes your follow-up. Under all circumstances we always encourage you to contact your private physician who remains a resource for coordinating your care. When calling for follow-up care, please make the office aware that this follow-up is from your recent emergency room visit. If for any reason you are refused follow-up, please contact the [facility] Emergency Department at and asked to speak to the emergency department charge nurse. [address] [address] #1 Drink plenty of fluids as discussed #2 Follow up with primary care provider #3 Return to ED as needed as discussed - My Orders Last 24 Hours: My Active Orders 12/08/17 14:00 Cardiac Monitoring [RC] . DIRECTED EKG Documentation Completion [RC] STAT Oxygen Therapy [RC] ASDIRECTED Pulse Oximetry [RC] ASDIRECTED Sodium Chloride 0.9% [Saline Flush] 10 ml FLUSH ASDIRECTED PRN Sodium Chloride 0.9% [Saline Flush] 2.5 ml FLUSH ASDIRECTED PRN Saline Lock Insert [OM.PC] Stat 12/08/17 15:00 Sodium Chloride 0.9% [Normal Saline] 1,000 ml IV STAT 12/08/17 16:33 CULTURE URINE [RM] Stat UA W/MICROSCOPIC [URIN] Stat - Assessment/Plan Last 24 Hours: My Active Orders 12/08/17 14:00 Cardiac Monitoring [RC] . DIRECTED EKG Documentation Completion [RC] STAT Oxygen Therapy [RC] ASDIRECTED Pulse Oximetry [RC] ASDIRECTED Sodium Chloride 0.9% [Saline Flush] 10 ml FLUSH ASDIRECTED PRN Sodium Chloride 0.9% [Saline Flush] 2.5 ml FLUSH ASDIRECTED PRN Saline Lock Insert [OM.PC] Stat 12/08/17 15:00 Sodium Chloride 0.9% [Normal Saline] 1,000 ml IV STAT 12/08/17 16:33 CULTURE URINE [RM] Stat UA W/MICROSCOPIC [URIN] Stat
[2017-12-08 15:25] LABS: CHLORIDE,CL 104 mmol/L (98-107); SODIUM,NA 141 mmol/L (136-145)
--- NOTE | 2017-12-08 16:57 | CT ---
CT of the abdomen and pelvis without contrast. HISTORY: Pain TECHNIQUE: Axial CT images were obtained of the abdomen and pelvis without contrast. Coronal and sagi ttal reconstructions obtained. FINDINGS: The lung bases are clear, no pleural effusion. Small amount of fluid within the distal esophagus, lik senait reflux. The liver, spleen, adrenal glands, and pancreas appear unremarkable for noncontrast examination. Chol ecystectomy. There is no bulky retroperitoneal lymphadenopathy. No abdominal ascites. Tiny broad-base d umbilical hernia containing a small portion of bowel. There are no calcifications noted within the kidneys or along the courses of the ureters bilaterally. The large and small bowel are normal in caliber without evidence of obstruction. The appendix appears normal. There is no bulky pelvic lymphadenopathy. No free fluid. No free air. The urinary bladder ap pears normal. Mild wedging of the L1 vertebral bodies. Generalized osteopenia. IMPRESSION: 1. No acute findings within the abdomen or pelvis.
[2017-12-08 18:05] VITALS: BP 123/72
== END 2017-12-08 17:55 | disposition home or self-care (01) ==
LOC: MW.ED 13:51
DX: S30.1XXA Contusion of abdominal wall, initial encounter (principal); I10 Essential (primary) hypertension; E11.9 Type 2 diabetes mellitus without complications; F41.9 Anxiety disorder, unspecified; F32.9 Major depressive disorder, single episode, unspecified; Z88.0 Allergy status to penicillin; Z91.09 Other allergy status, other than to drugs and biological substances; Z79.4 Long term (current) use of insulin; Z79.01 Long term (current) use of anticoagulants; Z79.899 Other long term (current) drug therapy; X58.XXXA Exposure to other specified factors, initial encounter
CPT/HCPCS: 36415; 71045; 74176; 80053; 81001; 83690; 84484; 85025; 85610; 87086; 93005; 96361; 96374; 99285; A9270; J1642; J2405; J7040

== ENCOUNTER 2018-10-20 09:28 | Emergency (ER) | payer OTHER, MEDICARE ==
--- NOTE | 2018-10-20 09:48 | EDM.PDOC ---
ED HPI GENERAL MEDICAL PROBLEM - General Chief Complaint: Abdominal Pain Stated Complaint: DON'T FEEL WELL Time Seen by Provider: 10/20/18 09:48 Source of Information: Reports: Patient - History of Present Illness INITIAL COMMENTS - FREE TEXT/NARRATIVE: HISTORY AND PHYSICAL: History of present illness: [Patient presents with pelvic pain dysuria or frequent urination no fever nausea vomiting chills sweats no chest pain shortness breath headache dizziness palpitation about a urine symptoms] Review of systems: As per history of present illness and below otherwise all systems reviewed and negative. Past medical history: As per history of present illness and as reviewed below otherwise noncontributory. Surgical history: As per history of present illness and as reviewed below otherwise noncontributory. Social history: No reported history of drug or alcohol abuse. Family history: As per history of present illness and as reviewed below otherwise noncontributory. Physical exam: HEENT: Atraumatic, normocephalic, pupils reactive, negative for conjunctival pallor or scleral icterus, mucous membranes moist, throat clear, neck supple, nontender, trachea midline. Lungs: Clear to auscultation, breath sounds equal bilaterally, chest nontender. Heart: S1S2, regular, negative for clicks, rubs, or JVD. Abdomen: Soft, nondistended, nontender. Negative for masses or hepatosplenomegaly. Negative for costovertebral tenderness. Pelvis: Stable nontender. Genitourinary: Deferred. Rectal: Deferred. Extremities: Atraumatic, negative for cords or calf pain. Neurovascular unremarkable. Neuro: Awake, alert, oriented. Cranial nerves II through XII unremarkable. Cerebellum unremarkable. Motor and sensory unremarkable throughout. Exam nonfocal. Diagnostics: [TBC CMP UA with culture Abdomen pelvis CT no contrast] Therapeutics: [Levaquin Flomax] Did discuss the patient with Dr. Harmon he will see her in follow-up next week in his clinic Impression: Hematuria UTI ] Possibility of emphysematous cystitis Definitive disposition and diagnosis as appropriate pending reevaluation and review of above. Lower Abdomen Pain Score (Numeric/FACES): 9 - Related Data Allergies Allergy/AdvReac Type Severity Reaction Status Date / Time Penicillins Allergy Severe Cannot Verified 10/20/18 09:33 Remember silver Allergy Rash Verified 10/20/18 09:33 [From Tegaderm AG Mesh] Home Meds: Home Meds ALPRAZolam [Xanax] 0.25 mg PO DAILY PRN 06/18/17 [History] Clopidogrel [Plavix] 75 mg PO DAILY 06/18/17 [History] Insulin Aspart [NovoLOG] 10 - 15 unit SUBCUT TIDAC 06/18/17 [History] Losartan [Cozaar] 12.5 mg PO BEDTIME 06/18/17 [History] Meclizine [Antivert] 12.5 mg PO TID PRN 06/18/17 [History] Nitroglycerin [Nitrostat] 0.4 mg SL ASDIRECTED PRN 06/18/17 [History] atorvaSTATin [Lipitor] 80 mg PO BEDTIME 06/18/17 [History] oxyCODONE 5 mg PO Q4H PRN 06/18/17 [History] Albuterol [Ventolin HFA] 2 puff INH Q6H PRN 10/19/17 [History] Amitriptyline [Elavil] 10 mg PO BEDTIME 10/19/17 [History] Carvedilol 3.125 mg PO BIDMEALS 10/19/17 [History] DULoxetine [Cymbalta] 60 mg PO DAILY 10/19/17 [History] Desvenlafaxine [Desvenlafaxine ER] 100 mg PO DAILY 10/19/17 [History] Furosemide 40 mg PO DAILY PRN 10/19/17 [History] Gemfibrozil 600 mg PO BIDMEALS 10/19/17 [History] Insulin Degludec [Tresiba Flextouch U-200] 48 unit SQ DAILY 10/19/17 [History] Clotrimazole [Clotrimazole 1%] 1 applic TOP BID 12/08/17 [History] InFLIXimab [Remicade] 500 mg IV WEEKLY 12/08/17 [History] Insulin Glargine,Hum.Rec.Anlog [Basaglar Kwikpen U-100] 40 units SQ DAILY [History] Past Medical History HEENT History: Reports: Impaired Vision Cardiovascular History: Reports: Angina, Bypass, Hypertension, Stents Other Cardiovascular History: 'partial heart' Respiratory History: Reports: Sleep Apnea Other Respiratory History: pneumonia Gastrointestinal History: Reports: None Genitourinary History: Reports: None 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 stroke in the passed 6 months. stroke affecting left arm. numbnessl to left arm. Psychiatric History: Reports: Anxiety, Depression Endocrine/Metabolic History: Reports: Diabetes, Type II Hematologic History: Reports: Other (See Below) Other Hematologic History: Easy bruising, not on anticoagulant therapy Immunologic History: Reports: None Oncologic (Cancer) History: Reports: Lymphoma Dermatologic History: Reports: None - Infectious Disease History Infectious Disease History: Reports: Chicken Pox, Measles, Mumps - Past Surgical History Head Surgeries/Procedures: Reports: None HEENT Surgical History: Reports: Adenoidectomy, Cataract Surgery, Tonsillectomy , Other (See Below) Other HEENT Surgeries/Procedures: Sinus surgery, blepheroplasty Other Cardiovascular Surgeries/Procedures: 3 bypasses, 10 stents GI Surgical History: Reports: Cholecystectomy Female Surgical History: Reports: None Neurological Surgical History: Reports: None Musculoskeletal Surgical History: Reports: Carpal Tunnel Dermatological Surgical History: Reports: None Social & Family History - Family History Family Medical History: Noncontributory - Tobacco Use Smoking Status *Q: Never Smoker - Caffeine Use Caffeine Use: Reports: Coffee, Soda - Recreational Drug Use Recreational Drug Use: No ED ROS GENERAL - Review of Systems Review Of Systems: See Below ED EXAM, GENERAL - Physical Exam Exam: See Below Course - Vital Signs Last Recorded V/S: Last Vital Signs Temp 97.0 F 10/20/18 09:41 Pulse 76 10/20/18 09:41 Resp 17 10/20/18 09:41 BP 132/68 10/20/18 09:41 Pulse Ox 93 L 10/20/18 09:41 - Orders/Labs/Meds Labs: Laboratory Tests 10/20/18 10/20/18 10/20/18 Range/Units 09:52 10:07 10:07 WBC 6.56 (4.0-11.0) K/uL RBC 4.70 (4.30-5.90) M/uL Hgb 14.1 (12.0-16.0) g/dL Hct 42.2 (36.0-46.0) % MCV 89.8 (80.0-98.0) fL MCH 30.0 (27.0-32.0) pg MCHC 33.4 (31.0-37.0) g/dL RDW Std Deviation 45.1 (28.0-62.0) fl RDW Coeff of [place]anza 14 (11.0-15.0) % Plt Count 161 (150-400) K/uL MPV 10.20 (7.40-12.00) fL Neut % (Auto) 43.9 L (48.0-80.0) % Lymph % (Auto) 44.7 H (16.0-40.0) % [place] % (Auto) 9.8 (0.0-15.0) % Eos % (Auto) 1.1 (0.0-7.0) % Baso % (Auto) 0.5 (0.0-1.5) % Neut # (Auto) 2.9 (1.4-5.7) K/uL Lymph # (Auto) 2.9 H (0.6-2.4) K/uL [place] # (Auto) 0.6 (0.0-0.8) K/uL Eos # (Auto) 0.1 (0.0-0.7) K/uL Baso # (Auto) 0.0 (0.0-0.1) K/uL Nucleated RBC % 0.0 /100WBC Nucleated RBCs # 0 K/uL Sodium 139 (136-145) mmol/L Potassium 4.6 (3.5-5.1) mmol/L Chloride 106 (98-107) mmol/L Carbon Dioxide 24.0 (21.0-32.0) mmol/L BUN 19 H (7.0-18.0) mg/dL Creatinine 1.1 H (0.6-1.0) mg/dL Est Cr Clr Drug Dosing 48.92 mL/min Estimated GFR (MDRD) 49.7 ml/min Glucose 305 H (74-106) mg/dL Calcium 9.0 (8.5-10.1) mg/dL Total Bilirubin 0.8 (0.2-1.0) mg/dL AST 10 L (15-37) IU/L ALT 11 L (14-63) IU/L Alkaline Phosphatase 186 H (46-116) U/L Total Protein 5.6 L (6.4-8.2) g/dL Albumin 2.5 L (3.4-5.0) g/dL Globulin 3.1 (2.6-4.0) g/dL Albumin/Globulin Ratio 0.8 L (0.9-1.6) Urine Color YELLOW Urine Appearance CLEAR Urine pH 5.5 (5.0-8.0) Ur Specific [place] 1.015 (1.001-1.035) Urine Protein NEGATIVE (NEGATIVE) mg/dL Urine Glucose (UA) >=1000 (NEGATIVE) mg/dL Urine Ketones NEGATIVE (NEGATIVE) mg/dL Urine Occult Blood LARGE H (NEGATIVE) Urine Nitrite NEGATIVE (NEGATIVE) Urine Bilirubin NEGATIVE (NEGATIVE) Urine Urobilinogen 0.2 (<2.0) EU/dL Ur Leukocyte Esterase NEGATIVE (NEGATIVE) Urine RBC 10-15 (0-2/HPF) Urine WBC 3-5 (0-5/HPF) Ur Epithelial Cells RARE (NONE-FEW) Urine Bacteria 3+ H (NEGATIVE) Meds: Medications Discontinued Medications Generic Name Dose Route Start Last Admin Trade Name Freq PRN Reason Stop Dose Admin Ketorolac Tromethamine 30 mg 10/20/18 10:18 10/20/18 10:31 Toradol IM 10/20/18 10:19 30 mg ONETIME ONE Administration Tamsulosin HCl 0.4 mg 10/20/18 09:59 10/20/18 10:08 Flomax PO 10/20/18 10:00 0.4 mg ONETIME ONE Administration Departure - Departure Time of Disposition: 12:18 Disposition: Home, Self-Care 01 Condition: Good Clinical Impression: UTI (urinary tract infection) Qualifiers: Urinary tract infection type: site unspecified Hematuria presence: without hematuria Qualified Code(s): N39.0 - Urinary tract infection, site not specified - Discharge Information Referrals: Salvador Gonzáles MD [Primary Care Provider] - Forms: ED Department Discharge Additional Instructions: Medication as prescribed Return if symptoms persist or worsen Follow-up with Dr. Harmon next week, er referral provided [facility] - Urology [address] [place] [id number] The following information is given to patients seen in the emergency department who are being discharged to home. This information is to outline your options for follow-up care. We provide all patients seen in our emergency department with a follow-up referral. The need for follow-up, as well as the timing and circumstances, are variable depending upon the specifics of your emergency department visit. If you don't have a primary care physician on staff, we will provide you with a referral. We always advise you to contact your personal physician following an emergency department visit to inform them of the circumstance of the visit and for follow-up with them and/or the need for any referrals to a consulting specialist. The emergency department will also refer you to a specialist when appropriate. This referral assures that you have the opportunity for follow-up care with a specialist. All of these measure are taken in an effort to provide you with optimal care, which includes your follow-up. Under all circumstances we always encourage you to contact your private physician who remains a resource for coordinating your care. When calling for follow-up care, please make the office aware that this follow-up is from your recent emergency room visit. If for any reason you are refused follow-up, please contact the [facility] emergency department at and asked to speak to the emergency department charge nurse.
[2018-10-20] MEDS ORDERED: Tamsulosin 0.4 MG Cap.ER PO ONE (09:59)
[2018-10-20] MEDS ORDERED: Ketorolac 30 MG/ML SDV IM ONE (10:18)
--- NOTE | 2018-10-20 11:40 | CT ---
INDICATION: Urinary tract infection. COMPARISON: CT scan of the abdomen and pelvis dated 08 December 2017. TECHNIQUE: Noncontrast CT scan of the abdomen and pelvis. FINDINGS: The lung bases are unremarkable. No focal abnormalities identified in the visualized portions of the liver, spleen, pancreas, adrenal glands, and kidneys. No hydronephrosis. Small pockets of air throughout the randall of the urinary bladder. The GI tract is incompletely distended but shows no gross abnormalities. The stomach and GE junction are not well assessed. No retroperitoneal, pelvic sidewall, or mesenteric adenopathy. Atherosclerotic vascular calcifications. Degenerative changes of the spine. Dystrophic calcification in the subcutaneous fat over the posterior aspect of L5. IMPRESSION: 1. Air throughout the randall of the urinary bladder representing emphysematous cystitis. Dictated by Jose Armando Rausch MD @ 10/20/2018 11:39:47 AM Dictated by: Jose Armando Rausch MD @ 10/20/2018 11:39:58 (Electronically Signed)
[2018-10-20 12:53] VITALS: BP 120/64
== END 2018-10-20 12:53 | disposition home or self-care (01) ==
LOC: MW.ED 09:28
DX: N39.0 Urinary tract infection, site not specified (principal); I10 Essential (primary) hypertension; F41.9 Anxiety disorder, unspecified; F32.9 Major depressive disorder, single episode, unspecified; E11.9 Type 2 diabetes mellitus without complications; Z88.0 Allergy status to penicillin; Z79.899 Other long term (current) drug therapy; Z79.01 Long term (current) use of anticoagulants; Z79.4 Long term (current) use of insulin
CPT/HCPCS: 36415; 74176; 80053; 81001; 85025; 96372; 99284; A9270; J1885

== ENCOUNTER 2018-10-28 13:26 | Observation (INO) | payer MEDICARE, OTHER ==
[2018-10-28] MEDS ORDERED: Sodium Chloride 0.9% 10 ML Syringe FLUSH PRN (13:53)
[2018-10-28] MEDS ORDERED: Sodium Chloride 0.9% 2.5 ML Syringe FLUSH PRN (13:53)
[2018-10-28] MEDS ORDERED: Aspirin 81 MG Tab.Chew PO ONE (14:01)
[2018-10-28] MEDS: Nitroglycerin 0.4 MG Tab.SL SL PRN ×2 (14:15→15:44)
[2018-10-28 14:21] LABS: CHLORIDE,CL 104 mmol/L (98-107); SODIUM,NA 138 mmol/L (136-145)
[2018-10-28] MEDS ORDERED: Sodium Chloride 0.9% 1,000 ML IV ONE (14:21)
[2018-10-28] MEDS ORDERED: Morphine 2 MG/ML Syringe IVPUSH ONE (14:29)
--- NOTE | 2018-10-28 14:30 | EDM.PDOC ---
ED HPI GENERAL MEDICAL PROBLEM - General Chief Complaint: General Stated Complaint: UTI Time Seen by Provider: 10/28/18 13:33 Source of Information: Reports: Patient History Limitations: Reports: No Limitations - History of Present Illness INITIAL COMMENTS - FREE TEXT/NARRATIVE: History of present illness: []Patient was recently diagnosed with a UTI by Dr. Painter and has finished antibiotics. She started having bladder pain recur this morning and came to the ER for pain. While she was in she developed 7/10 chest pain. She took her own nitroglycerin which decreased the pain to 4/10. Patient was brought back to the ED and given aspirin and nitroglycerin with improvement of chest pain. Review of systems: As per history of present illness and below otherwise all systems reviewed and negative. Past medical history: As per history of present illness and as reviewed below otherwise noncontributory. Surgical history: As per history of present illness and as reviewed below otherwise noncontributory. Social history: No reported history of drug or alcohol abuse. Family history: As per history of present illness and as reviewed below otherwise noncontributory. Physical exam: General: Well developed, well nourished in NAD HEENT: Atraumatic, normocephalic, pupils reactive, negative for conjunctival pallor or scleral icterus, mucous membranes moist, throat clear, neck supple, nontender, trachea midline. Lungs: Clear to auscultation, breath sounds equal bilaterally, chest nontender. Heart: S1S2, regular, negative for clicks, rubs, or JVD. Abdomen: NABS, Soft, nondistended, nontender. Negative for masses or hepatosplenomegaly. Negative for costovertebral tenderness. Pelvis: Stable nontender. Genitourinary: Deferred. Rectal: Deferred. Extremities: Atraumatic, negative for cords or calf pain. Neurovascular unremarkable. Neuro: Awake, alert, oriented. Cranial nerves II through XII unremarkable. Cerebellum unremarkable. Motor and sensory unremarkable throughout. Exam nonfocal. Skin:warm and dry Diagnostics: EKG, CBC, chemistry, UA Therapeutics: Nitroglycerin, aspirin, morphine ED Course: Stable Impression: Chest pain, bladder pain Prescriptions: Plan: To hospitalist for observation for chest pain and pain control. Definitive disposition and diagnosis as appropriate pending reevaluation and review of above. Chest Pain Score (Numeric/FACES): 7 Pelvic Pain Score (Numeric/FACES): 7 - Related Data Allergies Allergy/AdvReac Type Severity Reaction Status Date / Time Penicillins Allergy Severe Cannot Verified 10/28/18 13:43 Remember silver Allergy Rash Verified 10/28/18 13:43 [From Tegaderm AG Mesh] Home Meds: Home Meds ALPRAZolam [Xanax] 0.25 mg PO DAILY PRN 06/18/17 [History] Clopidogrel [Plavix] 75 mg PO DAILY 06/18/17 [History] Insulin Aspart [NovoLOG] 10 - 15 unit SUBCUT TIDAC 06/18/17 [History] Losartan [Cozaar] 12.5 mg PO BEDTIME 06/18/17 [History] Meclizine [Antivert] 12.5 mg PO TID PRN 06/18/17 [History] Nitroglycerin [Nitrostat] 0.4 mg SL ASDIRECTED PRN 06/18/17 [History] atorvaSTATin [Lipitor] 80 mg PO BEDTIME 06/18/17 [History] oxyCODONE 5 mg PO Q4H PRN 06/18/17 [History] Albuterol [Ventolin HFA] 2 puff INH Q6H PRN 10/19/17 [History] Amitriptyline [Elavil] 10 mg PO BEDTIME 10/19/17 [History] Carvedilol 3.125 mg PO BIDMEALS 10/19/17 [History] DULoxetine [Cymbalta] 60 mg PO DAILY 10/19/17 [History] Desvenlafaxine [Desvenlafaxine ER] 100 mg PO DAILY 10/19/17 [History] Furosemide 40 mg PO DAILY PRN 10/19/17 [History] Gemfibrozil 600 mg PO BIDMEALS 10/19/17 [History] Insulin Degludec [Tresiba Flextouch U-200] 48 unit SQ DAILY 10/19/17 [History] Clotrimazole [Clotrimazole 1%] 1 applic TOP BID 12/08/17 [History] InFLIXimab [Remicade] 500 mg IV WEEKLY 12/08/17 [History] Insulin Glargine,Hum.Rec.Anlog [Basaglar Kwikpen U-100] 40 units SQ DAILY [History] Past Medical History HEENT History: Reports: Impaired Vision Cardiovascular History: Reports: Angina, Bypass, Hypertension, Stents Other Cardiovascular History: 'partial heart' Respiratory History: Reports: Sleep Apnea Other Respiratory History: pneumonia Gastrointestinal History: Reports: None Genitourinary History: Reports: None 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 stroke in the passed 6 months. stroke affecting left arm. numbnessl to left arm. Psychiatric History: Reports: Anxiety, Depression Endocrine/Metabolic History: Reports: Diabetes, Type II Hematologic History: Reports: Other (See Below) Other Hematologic History: Easy bruising, not on anticoagulant therapy Immunologic History: Reports: None Oncologic (Cancer) History: Reports: Lymphoma Dermatologic History: Reports: None - Infectious Disease History Infectious Disease History: Reports: Chicken Pox, Measles, Mumps - Past Surgical History Head Surgeries/Procedures: Reports: None HEENT Surgical History: Reports: Adenoidectomy, Cataract Surgery, Tonsillectomy , Other (See Below) Other HEENT Surgeries/Procedures: Sinus surgery, blepheroplasty Other Cardiovascular Surgeries/Procedures: 3 bypasses, 10 stents GI Surgical History: Reports: Cholecystectomy Female Surgical History: Reports: None Neurological Surgical History: Reports: None Musculoskeletal Surgical History: Reports: Carpal Tunnel Dermatological Surgical History: Reports: None Social & Family History - Family History Family Medical History: Noncontributory - Tobacco Use Smoking Status *Q: Never Smoker - Caffeine Use Caffeine Use: Reports: Coffee, Soda - Recreational Drug Use Recreational Drug Use: No ED ROS GENERAL - Review of Systems Review Of Systems: ROS reveals no pertinent complaints other than HPI. ED EXAM, GENERAL - Physical Exam Exam: See Below Course - Vital Signs Last Recorded V/S: Last Vital Signs Temp 96.3 F 10/28/18 13:40 Pulse 73 10/28/18 14:30 Resp 16 10/28/18 14:30 BP 101/71 10/28/18 14:30 Pulse Ox 94 L 10/28/18 14:30 - Orders/Labs/Meds Orders: Active Orders 24 hr Category Date Time Status Patient Status [ADT] Stat ADT 10/28/18 14:28 Active EKG Documentation Completion [RC] STAT Care 10/28/18 13:52 Active Nitroglycerin [Nitrostat] Med 10/28/18 13:53 Active 0.4 mg SL Q5M PRN Sodium Chloride 0.9% [Normal Saline] 1,000 ml Med 10/28/18 14:21 Active IV .BOLUS Sodium Chloride 0.9% [Saline Flush] Med 10/28/18 13:53 Active 10 ml FLUSH ASDIRECTED PRN Sodium Chloride 0.9% [Saline Flush] Med 10/28/18 13:53 Active 2.5 ml FLUSH ASDIRECTED PRN Saline Lock Insert [OM.PC] Stat Oth 10/28/18 13:52 Ordered Medication Orders Sodium Chloride (Normal Saline) 1,000 mls @ 125 mls/hr IV .BOLUS ONE Stop: 10/28/18 22:20 Last Admin: 10/28/18 14:25 Dose: 125 mls/hr Nitroglycerin (Nitrostat) 0.4 mg SL Q5M PRN PRN Reason: Chest Pain Last Admin: 10/28/18 14:15 Dose: 0.4 mg Sodium Chloride (Saline Flush) 10 ml FLUSH ASDIRECTED PRN PRN Reason: Keep Vein Open Last Admin: 10/28/18 14:14 Dose: 10 ml Sodium Chloride (Saline Flush) 2.5 ml FLUSH ASDIRECTED PRN PRN Reason: Keep Vein Open Last Admin: 10/28/18 14:14 Dose: 2.5 ml Labs: Laboratory Tests 10/28/18 10/28/18 10/28/18 Range/Units 13:34 13:49 13:49 WBC 6.21 (4.0-11.0) K/uL RBC 4.60 (4.30-5.90) M/uL Hgb 13.9 (12.0-16.0) g/dL Hct 40.2 (36.0-46.0) % MCV 87.4 (80.0-98.0) fL MCH 30.2 (27.0-32.0) pg MCHC 34.6 (31.0-37.0) g/dL RDW Std Deviation 43.2 (28.0-62.0) fl RDW Coeff of [place]anza 14 (11.0-15.0) % Plt Count 162 (150-400) K/uL MPV 9.80 (7.40-12.00) fL Neut % (Auto) 36.9 L (48.0-80.0) % Lymph % (Auto) 50.9 H (16.0-40.0) % [place] % (Auto) 10.0 (0.0-15.0) % Eos % (Auto) 1.9 (0.0-7.0) % Baso % (Auto) 0.3 (0.0-1.5) % Neut # (Auto) 2.3 (1.4-5.7) K/uL Lymph # (Auto) 3.2 H (0.6-2.4) K/uL [place] # (Auto) 0.6 (0.0-0.8) K/uL Eos # (Auto) 0.1 (0.0-0.7) K/uL Baso # (Auto) 0.0 (0.0-0.1) K/uL Nucleated RBC % 0.0 /100WBC Nucleated RBCs # 0 K/uL Sodium 138 (136-145) mmol/L Potassium 4.0 (3.5-5.1) mmol/L Chloride 104 (98-107) mmol/L Carbon Dioxide 26.3 (21.0-32.0) mmol/L BUN 19 H (7.0-18.0) mg/dL Creatinine 1.0 (0.6-1.0) mg/dL Est Cr Clr Drug Dosing 51.80 mL/min Estimated GFR (MDRD) 55.5 ml/min Glucose 201 H (74-106) mg/dL Calcium 8.5 (8.5-10.1) mg/dL Total Bilirubin 0.6 (0.2-1.0) mg/dL AST 24 (15-37) IU/L ALT 13 L (14-63) IU/L Alkaline Phosphatase 143 H (46-116) U/L Troponin I < 0.050 (0.000-0.056) ng/mL Total Protein 5.5 L (6.4-8.2) g/dL Albumin 2.6 L (3.4-5.0) g/dL Globulin 2.9 (2.6-4.0) g/dL Albumin/Globulin Ratio 0.9 (0.9-1.6) Urine Color YELLOW Urine Appearance CLEAR Urine pH 5.0 (5.0-8.0) Ur Specific [place] 1.015 (1.001-1.035) Urine Protein NEGATIVE (NEGATIVE) mg/dL Urine Glucose (UA) 250 H (NEGATIVE) mg/dL Urine Ketones NEGATIVE (NEGATIVE) mg/dL Urine Occult Blood NEGATIVE (NEGATIVE) Urine Nitrite NEGATIVE (NEGATIVE) Urine Bilirubin NEGATIVE (NEGATIVE) Urine Urobilinogen 0.2 (<2.0) EU/dL Ur Leukocyte Esterase NEGATIVE (NEGATIVE) Meds: Medications Generic Name Dose Route Start Last Admin Trade Name Freq PRN Reason Stop Dose Admin Sodium Chloride 1,000 mls @ 125 mls/hr 10/28/18 14:21 10/28/18 14:25 Normal Saline IV 10/28/18 22:20 125 mls/hr .BOLUS ONE Administration Nitroglycerin 0.4 mg 10/28/18 13:53 10/28/18 14:15 Nitrostat SL 0.4 mg Q5M PRN Administration Chest Pain Sodium Chloride 10 ml 10/28/18 13:53 10/28/18 14:14 Saline Flush FLUSH 10 ml ASDIRECTED PRN Administration Keep Vein Open Sodium Chloride 2.5 ml 10/28/18 13:53 10/28/18 14:14 Saline Flush FLUSH 2.5 ml ASDIRECTED PRN Administration Keep Vein Open Discontinued Medications Generic Name Dose Route Start Last Admin Trade Name Freq PRN Reason Stop Dose Admin Aspirin 324 mg 10/28/18 14:01 10/28/18 14:13 Aspirin PO 10/28/18 14:02 324 mg ONETIME ONE Administration Morphine Sulfate 2 mg 10/28/18 14:29 10/28/18 14:41 Morphine IVPUSH 10/28/18 14:30 2 mg ONETIME ONE Administration Departure - Departure Time of Disposition: 14:40 Disposition: Refer to Observation Condition: Good Clinical Impression: Bladder pain Chest pain Qualifiers: Chest pain type: unspecified Qualified Code(s): R07.9 - Chest pain, unspecified - Discharge Information *PRESCRIPTION DRUG MONITORING PROGRAM REVIEWED*: No *COPY OF PRESCRIPTION DRUG MONITORING REPORT IN PATIENT ROCKY: No Referrals: Salvador Gonzáles MD [Primary Care Provider] - Forms: ED Department Discharge - My Orders Last 24 Hours: My Active Orders 10/28/18 13:52 EKG Documentation Completion [RC] STAT Saline Lock Insert [OM.PC] Stat 10/28/18 13:53 Nitroglycerin [Nitrostat] 0.4 mg SL Q5M PRN Sodium Chloride 0.9% [Saline Flush] 10 ml FLUSH ASDIRECTED PRN Sodium Chloride 0.9% [Saline Flush] 2.5 ml FLUSH ASDIRECTED PRN 10/28/18 14:21 Sodium Chloride 0.9% [Normal Saline] 1,000 ml IV .BOLUS 10/28/18 14:28 Patient Status [ADT] Stat - Assessment/Plan Last 24 Hours: My Active Orders 10/28/18 13:52 EKG Documentation Completion [RC] STAT Saline Lock Insert [OM.PC] Stat 10/28/18 13:53 Nitroglycerin [Nitrostat] 0.4 mg SL Q5M PRN Sodium Chloride 0.9% [Saline Flush] 10 ml FLUSH ASDIRECTED PRN Sodium Chloride 0.9% [Saline Flush] 2.5 ml FLUSH ASDIRECTED PRN 10/28/18 14:21 Sodium Chloride 0.9% [Normal Saline] 1,000 ml IV .BOLUS 10/28/18 14:28 Patient Status [ADT] Stat
[2018-10-28] MEDS ORDERED: Temazepam 15 MG Cap PO PRN (14:50)
[2018-10-28] MEDS ORDERED: Ondansetron 4 MG Tab.DIS PO PRN (14:50)
[2018-10-28] MEDS ORDERED: Ondansetron 4 MG/2 ML SDV IVPUSH PRN (14:50)
[2018-10-28] MEDS ORDERED: Ibuprofen 600 MG Tab PO PRN (14:50)
[2018-10-28] MEDS ORDERED: Acetaminophen 325 MG Tab PO PRN (14:50)
[2018-10-28 15:16] LABS: HEMOGLOBIN A1C 10.2 % (4.5-6.2)
--- NOTE | 2018-10-28 15:37 | PCM.HP ---
H&P History of Present Illness - General Date of Service: 10/28/18 Admit Problem/Dx: Admission Diagnosis/Problem Admission Diagnosis/Problem Chest pain - History of Present Illness Initial Comments - Free Text/Narative: 68 y/o female with history of CAD s/p stent placements, DM2 who presented to the ER after she was having abdominal pain. She states that she recently was diagnosed with a UTI and was taking antibiotics for it, however, states that she feels a similar pain and thinks she might have a recurrent UTI. Once she arrived, she apparently started complaining of chest pain located substernally. Rated the pain 8/10. No radiation to neck or arms. No diaphoresis. States that she suffers from anxiety and that she has been anxious due to her UTI symptoms. Denies any nausea, vomiting. She was given nitroglycerin in the ER and that seemed to alleviate her pain. Denies tobacco use. Denies any acid reflux. Chest Pain Score (Numeric/FACES): 7 Pelvic Pain Score (Numeric/FACES): 7 - Related Data Allergies/Adverse Reactions: Allergies Allergy/AdvReac Type Severity Reaction Status Date / Time Penicillins Allergy Severe Cannot Verified 10/28/18 13:43 Remember silver Allergy Rash Verified 10/28/18 13:43 [From Tegaderm AG Mesh] Home Medications: Home Meds ALPRAZolam [Xanax] 0.25 mg PO DAILY PRN 06/18/17 [History] Clopidogrel [Plavix] 75 mg PO DAILY 06/18/17 [History] Insulin Aspart [NovoLOG] 10 - 15 unit SUBCUT TIDAC 06/18/17 [History] Losartan [Cozaar] 12.5 mg PO BEDTIME 06/18/17 [History] Meclizine [Antivert] 12.5 mg PO TID PRN 06/18/17 [History] Nitroglycerin [Nitrostat] 0.4 mg SL ASDIRECTED PRN 06/18/17 [History] atorvaSTATin [Lipitor] 80 mg PO BEDTIME 06/18/17 [History] oxyCODONE 5 mg PO Q4H PRN 06/18/17 [History] Albuterol [Ventolin HFA] 2 puff INH Q6H PRN 10/19/17 [History] Amitriptyline [Elavil] 10 mg PO BEDTIME 10/19/17 [History] Carvedilol 3.125 mg PO BIDMEALS 10/19/17 [History] DULoxetine [Cymbalta] 60 mg PO DAILY 10/19/17 [History] Desvenlafaxine [Desvenlafaxine ER] 100 mg PO DAILY 10/19/17 [History] Furosemide 40 mg PO DAILY PRN 10/19/17 [History] Gemfibrozil 600 mg PO BIDMEALS 10/19/17 [History] Insulin Degludec [Tresiba Flextouch U-200] 48 unit SQ DAILY 10/19/17 [History] Clotrimazole [Clotrimazole 1%] 1 applic TOP BID 12/08/17 [History] InFLIXimab [Remicade] 500 mg IV WEEKLY 12/08/17 [History] Insulin Glargine,Hum.Rec.Anlog [Basaglar Kwikpen U-100] 40 units SQ DAILY [History] Past Medical History HEENT History: Reports: Impaired Vision Cardiovascular History: Reports: Angina, Bypass, Hypertension, Stents Other Cardiovascular History: 'partial heart' Respiratory History: Reports: Sleep Apnea Other Respiratory History: pneumonia Gastrointestinal History: Reports: None Genitourinary History: Reports: UTI, Recurrent [employer] History: Reports: Musculoskeletal History: Reports: Fracture Other Musculoskeletal History: Lower back fracture, Ribs Neurological History: Reports: Concussion, CVA, Headaches, Chronic, Head Trauma , Vertigo, Other (See Below) Other Neuro History: brainstem and spinal cord lesions. stroke in the passed 6 months. stroke affecting left arm. numbnessl to left arm. Psychiatric History: Reports: Anxiety, Depression Endocrine/Metabolic History: Reports: Diabetes, Type II Hematologic History: Reports: Other (See Below) Other Hematologic History: Easy bruising, not on anticoagulant therapy Immunologic History: Reports: None Oncologic (Cancer) History: Reports: Lymphoma Dermatologic History: Reports: None - Infectious Disease History Infectious Disease History: Reports: Chicken Pox, Measles, Mumps - Past Surgical History Head Surgeries/Procedures: Reports: None HEENT Surgical History: Reports: Adenoidectomy, Cataract Surgery, Tonsillectomy , Other (See Below) Other HEENT Surgeries/Procedures: Sinus surgery, blepheroplasty Other Cardiovascular Surgeries/Procedures: 3 bypasses, 10 stents GI Surgical History: Reports: Cholecystectomy Female Surgical History: Reports: None Neurological Surgical History: Reports: None Musculoskeletal Surgical History: Reports: Carpal Tunnel Dermatological Surgical History: Reports: None Social & Family History - Family History Family Medical History: Noncontributory - Tobacco Use Smoking Status *Q: Never Smoker Second Hand Smoke Exposure: No - Caffeine Use Caffeine Use: Reports: None - Recreational Drug Use Recreational Drug Use: No H&P Review of Systems - Review of Systems: Review Of Systems: See Below Exam - Exam Exam: See Below - Vital Signs Vital Signs: Last Vital Signs Temp 35.9 C 10/28/18 15:20 Pulse 68 10/28/18 15:20 Resp 16 10/28/18 15:20 BP 125/74 10/28/18 15:20 Pulse Ox 94 L 10/28/18 15:20 Weight: 90.718 kg - Exam General: Alert, Oriented, Cooperative HEENT: Conjunctiva Clear Lungs: Clear to Auscultation, Normal Respiratory Effort Cardiovascular: Regular Rate, Regular Rhythm GI/Abdominal Exam: Other (non distended, tender in pelvic region. No rebound. Non tender in RUQ or RLQ.) Extremities: Normal Inspection, No Pedal Edema Skin: Warm, Dry - Patient Data Lab Results Last 24 hrs: Laboratory Results - last 24 hr 10/28/18 10/28/18 10/28/18 Range/Units 13:34 13:49 13:49 WBC 6.21 (4.0-11.0) K/uL RBC 4.60 (4.30-5.90) M/uL Hgb 13.9 (12.0-16.0) g/dL Hct 40.2 (36.0-46.0) % MCV 87.4 (80.0-98.0) fL MCH 30.2 (27.0-32.0) pg MCHC 34.6 (31.0-37.0) g/dL RDW Std Deviation 43.2 (28.0-62.0) fl RDW Coeff of [place] 14 (11.0-15.0) % Plt Count 162 (150-400) K/uL MPV 9.80 (7.40-12.00) fL Neut % (Auto) 36.9 L (48.0-80.0) % Lymph % (Auto) 50.9 H (16.0-40.0) % [place] % (Auto) 10.0 (0.0-15.0) % Eos % (Auto) 1.9 (0.0-7.0) % Baso % (Auto) 0.3 (0.0-1.5) % Neut # (Auto) 2.3 (1.4-5.7) K/uL Lymph # (Auto) 3.2 H (0.6-2.4) K/uL [place] # (Auto) 0.6 (0.0-0.8) K/uL Eos # (Auto) 0.1 (0.0-0.7) K/uL Baso # (Auto) 0.0 (0.0-0.1) K/uL Nucleated RBC % 0.0 /100WBC Nucleated RBCs # 0 K/uL Sodium 138 (136-145) mmol/L Potassium 4.0 (3.5-5.1) mmol/L Chloride 104 (98-107) mmol/L Carbon Dioxide 26.3 (21.0-32.0) mmol/L BUN 19 H (7.0-18.0) mg/dL Creatinine 1.0 (0.6-1.0) mg/dL Est Cr Clr Drug Dosing 51.80 mL/min Estimated GFR (MDRD) 55.5 ml/min Glucose 201 H (74-106) mg/dL Hemoglobin A1c (4.5-6.2) % Calcium 8.5 (8.5-10.1) mg/dL Total Bilirubin 0.6 (0.2-1.0) mg/dL AST 24 (15-37) IU/L ALT 13 L (14-63) IU/L Alkaline Phosphatase 143 H (46-116) U/L Troponin I < 0.050 (0.000-0.056) ng/mL Total Protein 5.5 L (6.4-8.2) g/dL Albumin 2.6 L (3.4-5.0) g/dL Globulin 2.9 (2.6-4.0) g/dL Albumin/Globulin Ratio 0.9 (0.9-1.6) Triglycerides (0-200) mg/dL Cholesterol (50-200) mg/dL LDL Cholesterol, Calc (60-180) mg/dL VLDL Cholesterol (5-55) mg/dL HDL Cholesterol (40-60) mg/dL Cholesterol/HDL Ratio (3.3-6.0) Urine Color YELLOW Urine Appearance CLEAR Urine pH 5.0 (5.0-8.0) Ur Specific [place] 1.015 (1.001-1.035) Urine Protein NEGATIVE (NEGATIVE) mg/dL Urine Glucose (UA) 250 H (NEGATIVE) mg/dL Urine Ketones NEGATIVE (NEGATIVE) mg/dL Urine Occult Blood NEGATIVE (NEGATIVE) Urine Nitrite NEGATIVE (NEGATIVE) Urine Bilirubin NEGATIVE (NEGATIVE) Urine Urobilinogen 0.2 (<2.0) EU/dL Ur Leukocyte Esterase NEGATIVE (NEGATIVE) 10/28/18 10/28/18 Range/Units 13:49 13:49 WBC (4.0-11.0) K/uL RBC (4.30-5.90) M/uL Hgb (12.0-16.0) g/dL Hct (36.0-46.0) % MCV (80.0-98.0) fL MCH (27.0-32.0) pg MCHC (31.0-37.0) g/dL RDW Std Deviation (28.0-62.0) fl RDW Coeff of [place] (11.0-15.0) % Plt Count (150-400) K/uL MPV (7.40-12.00) fL Neut % (Auto) (48.0-80.0) % Lymph % (Auto) (16.0-40.0) % [place] % (Auto) (0.0-15.0) % Eos % (Auto) (0.0-7.0) % Baso % (Auto) (0.0-1.5) % Neut # (Auto) (1.4-5.7) K/uL Lymph # (Auto) (0.6-2.4) K/uL [place] # (Auto) (0.0-0.8) K/uL Eos # (Auto) (0.0-0.7) K/uL Baso # (Auto) (0.0-0.1) K/uL Nucleated RBC % /100WBC Nucleated RBCs # K/uL Sodium (136-145) mmol/L Potassium (3.5-5.1) mmol/L Chloride (98-107) mmol/L Carbon Dioxide (21.0-32.0) mmol/L BUN (7.0-18.0) mg/dL Creatinine (0.6-1.0) mg/dL Est Cr Clr Drug Dosing mL/min Estimated GFR (MDRD) ml/min Glucose (74-106) mg/dL Hemoglobin A1c 10.2 H (4.5-6.2) % Calcium (8.5-10.1) mg/dL Total Bilirubin (0.2-1.0) mg/dL AST (15-37) IU/L ALT (14-63) IU/L Alkaline Phosphatase (46-116) U/L Troponin I (0.000-0.056) ng/mL Total Protein (6.4-8.2) g/dL Albumin (3.4-5.0) g/dL Globulin (2.6-4.0) g/dL Albumin/Globulin Ratio (0.9-1.6) Triglycerides 175 (0-200) mg/dL Cholesterol 226 H (50-200) mg/dL LDL Cholesterol, Calc 129 (60-180) mg/dL VLDL Cholesterol 35 (5-55) mg/dL HDL Cholesterol 62 H (40-60) mg/dL Cholesterol/HDL Ratio 3.6 (3.3-6.0) Urine Color Urine Appearance Urine pH (5.0-8.0) Ur Specific [place] (1.001-1.035) Urine Protein (NEGATIVE) mg/dL Urine Glucose (UA) (NEGATIVE) mg/dL Urine Ketones (NEGATIVE) mg/dL Urine Occult Blood (NEGATIVE) Urine Nitrite (NEGATIVE) Urine Bilirubin (NEGATIVE) Urine Urobilinogen (<2.0) EU/dL Ur Leukocyte Esterase (NEGATIVE) Result Diagrams: 10/28/18 13:49 10/28/18 13:49 Problem List Initiated/Reviewed/Updated: Yes Orders Last 24hrs: Active Orders 24 hr Category Date Time Status Patient Status [ADT] Stat ADT 10/28/18 14:28 Active Blood Glucose Check, Bedside [RC] WITHMEALSANDBED Care 10/28/18 14:50 Active Cardiac Monitoring [RC] CONTINUOUS Care 10/28/18 14:51 Inactive EKG Documentation Completion [RC] STAT Care 10/28/18 13:52 Active Intake and Output [RC] QSHIFT Care 10/28/18 14:51 Active Oxygen Therapy [RC] PRN Care 10/28/18 14:50 Active Telemetry Monitoring [Cardiac Monitoring] [RC] Q8H Care 10/28/18 14:51 Active Up With Assistance [RC] ASDIRECTED Care 10/28/18 14:50 Active VTE/DVT Education [RC] PER UNIT ROUTINE Care 10/28/18 14:50 Active Vital Signs [RC] Q4H Care 10/28/18 14:50 Active ADA Diabetic [[place] [employer] Diet] [DIET Diet 10/28/18 Dinner Active ] COMPREHENSIVE METABOLIC PN,CMP [CHEM] AM Lab 10/29/18 05:11 Ordered TROPONIN I [CHEM] Q6H Lab 10/28/18 19:00 Ordered TROPONIN I [CHEM] Q6H Lab 10/29/18 01:00 Ordered Acetaminophen [Tylenol] Med 10/28/18 14:50 Active 650 mg PO Q4H PRN Carvedilol [Coreg] Med 10/28/18 17:00 Active 3.125 mg PO BIDMEALS Clopidogrel [Plavix] Med 10/29/18 09:00 Active 75 mg PO DAILY DULoxetine [Cymbalta] Med 10/29/18 09:00 Active 60 mg PO DAILY Enoxaparin [Lovenox] Med 10/28/18 15:00 Active 40 mg SUBCUT Q24H Ibuprofen [Motrin] Med 10/28/18 14:50 Active 600 mg PO Q6H PRN Nitroglycerin [Nitrostat] Med 10/28/18 13:53 Active 0.4 mg SL Q5M PRN Ondansetron [Zofran ODT] Med 10/28/18 14:50 Active 4 mg PO Q4H PRN Ondansetron [Zofran] Med 10/28/18 14:50 Active 4 mg IVPUSH Q4H PRN Sodium Chloride 0.9% [Normal Saline] 1,000 ml Med 10/28/18 14:21 Active IV .BOLUS Sodium Chloride 0.9% [Saline Flush] Med 10/28/18 13:53 Active 10 ml FLUSH ASDIRECTED PRN Sodium Chloride 0.9% [Saline Flush] Med 10/28/18 13:53 Active 2.5 ml FLUSH ASDIRECTED PRN Temazepam [Restoril] Med 10/28/18 14:50 Active 15 mg PO BEDTIME PRN atorvaSTATin [Lipitor] Med 10/28/18 21:00 Active 80 mg PO BEDTIME Saline Lock Insert [OM.PC] Stat Oth 10/28/18 13:52 Ordered Resuscitation Status Routine Resus Stat 10/28/18 14:50 Ordered Medication Orders Acetaminophen (Tylenol) 650 mg PO Q4H PRN PRN Reason: Pain (Mild 1-3)/fever Carvedilol (Coreg) 3.125 mg PO BIDMEALS [facility] Clopidogrel Bisulfate (Plavix) 75 mg PO DAILY [facility] Duloxetine HCl (Cymbalta) 60 mg PO DAILY [facility] Enoxaparin Sodium (Lovenox) 40 mg SUBCUT Q24H [facility] Sodium Chloride (Normal Saline) 1,000 mls @ 125 mls/hr IV .BOLUS ONE Stop: 10/28/18 22:20 Last Admin: 10/28/18 14:25 Dose: 125 mls/hr Ibuprofen (Motrin) 600 mg PO Q6H PRN PRN Reason: Pain (mild 1-3) Nitroglycerin (Nitrostat) 0.4 mg SL Q5M PRN PRN Reason: Chest Pain Last Admin: 10/28/18 14:15 Dose: 0.4 mg Non-Formulary Medication (Atorvastatin [Lipitor]) 80 mg PO BEDTIME [facility] Ondansetron HCl (Zofran Odt) 4 mg PO Q4H PRN PRN Reason: nausea, able to take PO Ondansetron HCl (Zofran) 4 mg IVPUSH Q4H PRN PRN Reason: Nausea Sodium Chloride (Saline Flush) 10 ml FLUSH ASDIRECTED PRN PRN Reason: Keep Vein Open Last Admin: 10/28/18 14:14 Dose: 10 ml Sodium Chloride (Saline Flush) 2.5 ml FLUSH ASDIRECTED PRN PRN Reason: Keep Vein Open Last Admin: 10/28/18 14:14 Dose: 2.5 ml Temazepam (Restoril) 15 mg PO BEDTIME PRN PRN Reason: Sleep Assessment/Plan Comment:: A: 1. Chest pain, r/o ACS 2. Pelvic pain 3. Insulin dependent diabetes mellitus 4. PMH CAD, dyslipidemia, anxiety and lymphoma in remission P: 1. Chest pain, unclear etiology. However, she is high risk due to her cardiac history. Will trend troponins and monitor on telemetry. Nitroglycerin PRN. 2. Pelvic pain, unclear etiology. Suspect that it may be 2/2 neurogenic bladder. Will order oxybutynin and see if that helps. If not helping, will consider CT abdomen. 3. IDDM, uncontrolled. HgA1c 10.0. States she takes Levemir 50 units at night. I will start at a lower dose and ISS. 4. PMH CAD, dyslipidemia. I will restart her home medications. dispo: 1-2 days
[2018-10-28] MEDS: Enoxaparin 40 MG/0.4 ML Syringe SUBCUT SCH (15:45)
[2018-10-28] MEDS ORDERED: Morphine 2 MG/ML Syringe IVPUSH PRN (16:00)
[2018-10-28] MEDS: Insulin Aspart 100 Units/ML 3 ML Pen SUBCUT SCH (17:27)
[2018-10-28] MEDS: Carvedilol 3.125 MG Tab PO SCH (17:44)
[2018-10-28] MEDS: Oxybutynin 5 MG Tab PO SCH ×2 (17:44→21:11)
[2018-10-28] MEDS ORDERED: atorvaSTATin 40 MG Tab PO SCH (21:00)
[2018-10-28] MEDS ORDERED: Losartan 50 MG Tab PO SCH (21:00)
[2018-10-29 06:38] LABS: CHLORIDE,CL 105 mmol/L (98-107); SODIUM,NA 139 mmol/L (136-145)
[2018-10-29] MEDS: Carvedilol 3.125 MG Tab PO SCH (08:08)
[2018-10-29] MEDS: Oxybutynin 5 MG Tab PO SCH (08:09)
[2018-10-29] MEDS: Insulin Aspart 100 Units/ML 3 ML Pen SUBCUT SCH ×2 (08:23→13:14)
[2018-10-29] MEDS ORDERED: DESVENLAFAXINE 100 MG PO SCH (09:00)
[2018-10-29] MEDS ORDERED: Clopidogrel 75 MG Tab PO SCH (09:00)
[2018-10-29] MEDS ORDERED: DULoxetine 60 MG Cap PO SCH (09:00)
--- NOTE | 2018-10-29 12:16 | US ---
INDICATION: Abnormal liver enzymes. Pain. TECHNIQUE: Ultrasound abdomen complete. Sonographic images of the entire abdomen were obtained using rausch-scale and color Doppler. COMPARISON: CT scan abdomen 10/26/2018 FINDINGS: Liver: Normal in size and echotexture. No masses. No intrahepatic biliary dilatation. Gallbladder: Surgically absent. Common bile duct: 8.0 mm. Pancreas: Unremarkable. Spleen: 11.5cm. Normal in size and appearance. Right kidney: 10.6 cm. Left kidney: 10.5 cm. Kidneys are unremarkable, no hydronephrosis or mass. Vasculature: Proximal abdominal aorta and IVC are normal in caliber. No visualized IVC thrombus. Atherosclerotic plaque formation in the aorta. IMPRESSION: No biliary dilatation, normal caliber bile duct after gallbladder surgery. Extensive atherosclerotic plaque formation within a normal caliber abdominal aorta. Dictated by Gaston Carrera MD @ Oct 29 2018 12:10PM Signed by Dr. Gaston Carrera @ Oct 29 2018 12:14PM
[2018-10-29 12:39] VITALS: BP 117/70
--- NOTE | 2018-10-29 14:13 | PCM.DCSUM1 ---
<Kevin Knight - Last Filed: 10/29/18 14:08> Discharge Summary - Hospital Course Free Text/Narrative:: 68 y/o female who presented to the ER complaining of dysuria and chest pain. Patient was admitted for ACS rule out and suspected UTI. Her Troponins were negative and her chest pain resolved during this hospitalization. She continued to complain of dysuria, however, repeat U/A was negative it just showed glucosuria. The patient developed elevated liver enzymes in the 300's. Bilirubin was normal. A RUQ U/S was performed which was negative for any intrahepatic biliary distention or common bile distention. She had a cholecystectomy years ago. She was advised to follow-up with her PCP for her elevated liver enzymes and blood glucose control. - Discharge Data Discharge Date: 10/29/18 Discharge Disposition: Home, Self-Care 01 Condition: Good - Patient Instructions Diet: Diabetic Diet Activity: As Tolerated Notify Provider of: Fever, Increased Pain, Swelling and Redness, Nausea and/or Vomiting - Discharge Plan *PRESCRIPTION DRUG MONITORING PROGRAM REVIEWED*: No *COPY OF PRESCRIPTION DRUG MONITORING REPORT IN PATIENT ROCKY: No Home Medications: Home Meds ALPRAZolam [Xanax] 0.25 mg PO DAILY PRN 06/18/17 [History] Clopidogrel [Plavix] 75 mg PO DAILY 06/18/17 [History] Insulin Aspart [NovoLOG] 5 - 14 unit SUBCUT TIDAC 06/18/17 [History] Losartan [Cozaar] 25 mg PO BEDTIME 06/18/17 [History] Meclizine [Antivert] 12.5 mg PO TID PRN 06/18/17 [History] Nitroglycerin [Nitrostat] 0.4 mg SL ASDIRECTED PRN 06/18/17 [History] atorvaSTATin [Lipitor] 80 mg PO BEDTIME 06/18/17 [History] oxyCODONE 5 mg PO Q4H PRN 06/18/17 [History] Albuterol [Ventolin HFA] 1 puff INH Q6H PRN 10/19/17 [History] Amitriptyline [Elavil] 10 mg PO BEDTIME 10/19/17 [History] Carvedilol 3.125 mg PO BIDMEALS 10/19/17 [History] DULoxetine [Cymbalta] 60 mg PO DAILY 10/19/17 [History] Desvenlafaxine [Desvenlafaxine ER] 100 mg PO DAILY 10/19/17 [History] Furosemide 40 mg PO DAILY PRN 10/19/17 [History] Gemfibrozil 600 mg PO BIDMEALS 10/19/17 [History] Insulin Degludec [Tresiba Flextouch U-200] 48 unit SQ DAILY 10/19/17 [History] Clotrimazole [Clotrimazole 1%] 1 applic TOP BID 12/08/17 [History] InFLIXimab [Remicade] 500 mg IV WEEKLY 12/08/17 [History] Insulin Glargine,Hum.Rec.Anlog [Basaglar Kwikpen U-100] 40 units SQ DAILY [History] Patient Handouts: Pelvic Pain, Female, [id number], Dehydration, Adult, Easy- to-Read, Nonspecific Chest Pain, [id number] Referrals: [facility] [Outside] Salvador Gonzáles MD [Primary Care Provider] - 11/10/18 10:00 am (Please come 15 minutes before. ) - Discharge Summary/Plan Comment DC Time >30 min.: No - Patient Data Vitals - Most Recent: Last Vital Signs Temp 36.3 C 10/29/18 12:00 Pulse 88 10/29/18 12:00 Resp 20 10/29/18 12:00 BP 117/70 10/29/18 12:00 Pulse Ox 96 10/29/18 12:00 Weight - Most Recent: 90.718 kg I&O - Last 24 hours: Intake & Output 10/28/18 10/29/18 10/29/18 22:59 06:59 14:59 Intake Total 696 400 Output Total 500 Balance 696 -100 Lab Results - Last 24 hrs: Laboratory Results - last 24 hr 10/28/18 10/28/18 10/28/18 Range/Units 13:34 13:49 13:49 WBC 6.21 (4.0-11.0) K/uL RBC 4.60 (4.30-5.90) M/uL Hgb 13.9 (12.0-16.0) g/dL Hct 40.2 (36.0-46.0) % MCV 87.4 (80.0-98.0) fL MCH 30.2 (27.0-32.0) pg MCHC 34.6 (31.0-37.0) g/dL RDW Std Deviation 43.2 (28.0-62.0) fl RDW Coeff of Aranza 14 (11.0-15.0) % Plt Count 162 (150-400) K/uL MPV 9.80 (7.40-12.00) fL Neut % (Auto) 36.9 L (48.0-80.0) % Lymph % (Auto) 50.9 H (16.0-40.0) % Phelps % (Auto) 10.0 (0.0-15.0) % Eos % (Auto) 1.9 (0.0-7.0) % Baso % (Auto) 0.3 (0.0-1.5) % Neut # (Auto) 2.3 (1.4-5.7) K/uL Lymph # (Auto) 3.2 H (0.6-2.4) K/uL Phelps # (Auto) 0.6 (0.0-0.8) K/uL Eos # (Auto) 0.1 (0.0-0.7) K/uL Baso # (Auto) 0.0 (0.0-0.1) K/uL Nucleated RBC % 0.0 /100WBC Nucleated RBCs # 0 K/uL Sodium 138 (136-145) mmol/L Potassium 4.0 (3.5-5.1) mmol/L Chloride 104 (98-107) mmol/L Carbon Dioxide 26.3 (21.0-32.0) mmol/L BUN 19 H (7.0-18.0) mg/dL Creatinine 1.0 (0.6-1.0) mg/dL Est Cr Clr Drug Dosing 51.80 mL/min Estimated GFR (MDRD) 55.5 ml/min Glucose 201 H (74-106) mg/dL POC Glucose (60-110) mg/dL Hemoglobin A1c (4.5-6.2) % Calcium 8.5 (8.5-10.1) mg/dL Total Bilirubin 0.6 (0.2-1.0) mg/dL AST 24 (15-37) IU/L ALT 13 L (14-63) IU/L Alkaline Phosphatase 143 H (46-116) U/L Creatine Kinase (26-308) U/L Troponin I < 0.050 (0.000-0.056) ng/mL Total Protein 5.5 L (6.4-8.2) g/dL Albumin 2.6 L (3.4-5.0) g/dL Globulin 2.9 (2.6-4.0) g/dL Albumin/Globulin Ratio 0.9 (0.9-1.6) Triglycerides (0-200) mg/dL Cholesterol (50-200) mg/dL LDL Cholesterol, Calc (60-180) mg/dL VLDL Cholesterol (5-55) mg/dL HDL Cholesterol (40-60) mg/dL Cholesterol/HDL Ratio (3.3-6.0) Lipase (73-393) U/L Urine Color YELLOW Urine Appearance CLEAR Urine pH 5.0 (5.0-8.0) Ur Specific Marshall 1.015 (1.001-1.035) Urine Protein NEGATIVE (NEGATIVE) mg/dL Urine Glucose (UA) 250 H (NEGATIVE) mg/dL Urine Ketones NEGATIVE (NEGATIVE) mg/dL Urine Occult Blood NEGATIVE (NEGATIVE) Urine Nitrite NEGATIVE (NEGATIVE) Urine Bilirubin NEGATIVE (NEGATIVE) Urine Urobilinogen 0.2 (<2.0) EU/dL Ur Leukocyte Esterase NEGATIVE (NEGATIVE) 10/28/18 10/28/18 10/28/18 Range/Units 13:49 13:49 16:37 WBC (4.0-11.0) K/uL RBC (4.30-5.90) M/uL Hgb (12.0-16.0) g/dL Hct (36.0-46.0) % MCV (80.0-98.0) fL MCH (27.0-32.0) pg MCHC (31.0-37.0) g/dL RDW Std Deviation (28.0-62.0) fl RDW Coeff of Aranza (11.0-15.0) % Plt Count (150-400) K/uL MPV (7.40-12.00) fL Neut % (Auto) (48.0-80.0) % Lymph % (Auto) (16.0-40.0) % Phelps % (Auto) (0.0-15.0) % Eos % (Auto) (0.0-7.0) % Baso % (Auto) (0.0-1.5) % Neut # (Auto) (1.4-5.7) K/uL Lymph # (Auto) (0.6-2.4) K/uL Phelps # (Auto) (0.0-0.8) K/uL Eos # (Auto) (0.0-0.7) K/uL Baso # (Auto) (0.0-0.1) K/uL Nucleated RBC % /100WBC Nucleated RBCs # K/uL Sodium (136-145) mmol/L Potassium (3.5-5.1) mmol/L Chloride (98-107) mmol/L Carbon Dioxide (21.0-32.0) mmol/L BUN (7.0-18.0) mg/dL Creatinine (0.6-1.0) mg/dL Est Cr Clr Drug Dosing mL/min Estimated GFR (MDRD) ml/min Glucose (74-106) mg/dL POC Glucose 138 H (60-110) mg/dL Hemoglobin A1c 10.2 H (4.5-6.2) % Calcium (8.5-10.1) mg/dL Total Bilirubin (0.2-1.0) mg/dL AST (15-37) IU/L ALT (14-63) IU/L Alkaline Phosphatase (46-116) U/L Creatine Kinase (26-308) U/L Troponin I (0.000-0.056) ng/mL Total Protein (6.4-8.2) g/dL Albumin (3.4-5.0) g/dL Globulin (2.6-4.0) g/dL Albumin/Globulin Ratio (0.9-1.6) Triglycerides 175 (0-200) mg/dL Cholesterol 226 H (50-200) mg/dL LDL Cholesterol, Calc 129 (60-180) mg/dL VLDL Cholesterol 35 (5-55) mg/dL HDL Cholesterol 62 H (40-60) mg/dL Cholesterol/HDL Ratio 3.6 (3.3-6.0) Lipase (73-393) U/L Urine Color Urine Appearance Urine pH (5.0-8.0) Ur Specific Marshall (1.001-1.035) Urine Protein (NEGATIVE) mg/dL Urine Glucose (UA) (NEGATIVE) mg/dL Urine Ketones (NEGATIVE) mg/dL Urine Occult Blood (NEGATIVE) Urine Nitrite (NEGATIVE) Urine Bilirubin (NEGATIVE) Urine Urobilinogen (<2.0) EU/dL Ur Leukocyte Esterase (NEGATIVE) 10/28/18 10/28/18 10/29/18 Range/Units 19:01 21:03 01:00 WBC (4.0-11.0) K/uL RBC (4.30-5.90) M/uL Hgb (12.0-16.0) g/dL Hct (36.0-46.0) % MCV (80.0-98.0) fL MCH (27.0-32.0) pg MCHC (31.0-37.0) g/dL RDW Std Deviation (28.0-62.0) fl RDW Coeff of Aranza (11.0-15.0) % Plt Count (150-400) K/uL MPV (7.40-12.00) fL Neut % (Auto) (48.0-80.0) % Lymph % (Auto) (16.0-40.0) % Phelps % (Auto) (0.0-15.0) % Eos % (Auto) (0.0-7.0) % Baso % (Auto) (0.0-1.5) % Neut # (Auto) (1.4-5.7) K/uL Lymph # (Auto) (0.6-2.4) K/uL Phelps # (Auto) (0.0-0.8) K/uL Eos # (Auto) (0.0-0.7) K/uL Baso # (Auto) (0.0-0.1) K/uL Nucleated RBC % /100WBC Nucleated RBCs # K/uL Sodium (136-145) mmol/L Potassium (3.5-5.1) mmol/L Chloride (98-107) mmol/L Carbon Dioxide (21.0-32.0) mmol/L BUN (7.0-18.0) mg/dL Creatinine (0.6-1.0) mg/dL Est Cr Clr Drug Dosing mL/min Estimated GFR (MDRD) ml/min Glucose (74-106) mg/dL POC Glucose 177 H (60-110) mg/dL Hemoglobin A1c (4.5-6.2) % Calcium (8.5-10.1) mg/dL Total Bilirubin (0.2-1.0) mg/dL AST (15-37) IU/L ALT (14-63) IU/L Alkaline Phosphatase (46-116) U/L Creatine Kinase (26-308) U/L Troponin I < 0.050 < 0.050 (0.000-0.056) ng/mL Total Protein (6.4-8.2) g/dL Albumin (3.4-5.0) g/dL Globulin (2.6-4.0) g/dL Albumin/Globulin Ratio (0.9-1.6) Triglycerides (0-200) mg/dL Cholesterol (50-200) mg/dL LDL Cholesterol, Calc (60-180) mg/dL VLDL Cholesterol (5-55) mg/dL HDL Cholesterol (40-60) mg/dL Cholesterol/HDL Ratio (3.3-6.0) Lipase (73-393) U/L Urine Color Urine Appearance Urine pH (5.0-8.0) Ur Specific Marshall (1.001-1.035) Urine Protein (NEGATIVE) mg/dL Urine Glucose (UA) (NEGATIVE) mg/dL Urine Ketones (NEGATIVE) mg/dL Urine Occult Blood (NEGATIVE) Urine Nitrite (NEGATIVE) Urine Bilirubin (NEGATIVE) Urine Urobilinogen (<2.0) EU/dL Ur Leukocyte Esterase (NEGATIVE) 10/29/18 10/29/18 10/29/18 Range/Units 05:35 05:35 06:17 WBC (4.0-11.0) K/uL RBC (4.30-5.90) M/uL Hgb (12.0-16.0) g/dL Hct (36.0-46.0) % MCV (80.0-98.0) fL MCH (27.0-32.0) pg MCHC (31.0-37.0) g/dL RDW Std Deviation (28.0-62.0) fl RDW Coeff of Aranza (11.0-15.0) % Plt Count (150-400) K/uL MPV (7.40-12.00) fL Neut % (Auto) (48.0-80.0) % Lymph % (Auto) (16.0-40.0) % Phelps % (Auto) (0.0-15.0) % Eos % (Auto) (0.0-7.0) % Baso % (Auto) (0.0-1.5) % Neut # (Auto) (1.4-5.7) K/uL Lymph # (Auto) (0.6-2.4) K/uL Phelps # (Auto) (0.0-0.8) K/uL Eos # (Auto) (0.0-0.7) K/uL Baso # (Auto) (0.0-0.1) K/uL Nucleated RBC % /100WBC Nucleated RBCs # K/uL Sodium 139 (136-145) mmol/L Potassium 3.8 (3.5-5.1) mmol/L Chloride 105 (98-107) mmol/L Carbon Dioxide 27.7 (21.0-32.0) mmol/L BUN 17 (7.0-18.0) mg/dL Creatinine 0.8 (0.6-1.0) mg/dL Est Cr Clr Drug Dosing 64.76 mL/min Estimated GFR (MDRD) > 60.0 ml/min Glucose 171 H (74-106) mg/dL POC Glucose 167 H (60-110) mg/dL Hemoglobin A1c (4.5-6.2) % Calcium 8.2 L (8.5-10.1) mg/dL Total Bilirubin 0.8 (0.2-1.0) mg/dL AST 340 H (15-37) IU/L ALT 196 H (14-63) IU/L Alkaline Phosphatase 174 H (46-116) U/L Creatine Kinase 54 (26-308) U/L Troponin I (0.000-0.056) ng/mL Total Protein 5.1 L (6.4-8.2) g/dL Albumin 2.3 L (3.4-5.0) g/dL Globulin 2.8 (2.6-4.0) g/dL Albumin/Globulin Ratio 0.8 L (0.9-1.6) Triglycerides (0-200) mg/dL Cholesterol (50-200) mg/dL LDL Cholesterol, Calc (60-180) mg/dL VLDL Cholesterol (5-55) mg/dL HDL Cholesterol (40-60) mg/dL Cholesterol/HDL Ratio (3.3-6.0) Lipase 233 (73-393) U/L Urine Color Urine Appearance Urine pH (5.0-8.0) Ur Specific Marshall (1.001-1.035) Urine Protein (NEGATIVE) mg/dL Urine Glucose (UA) (NEGATIVE) mg/dL Urine Ketones (NEGATIVE) mg/dL Urine Occult Blood (NEGATIVE) Urine Nitrite (NEGATIVE) Urine Bilirubin (NEGATIVE) Urine Urobilinogen (<2.0) EU/dL Ur Leukocyte Esterase (NEGATIVE) 10/29/18 Range/Units 13:20 WBC (4.0-11.0) K/uL RBC (4.30-5.90) M/uL Hgb (12.0-16.0) g/dL Hct (36.0-46.0) % MCV (80.0-98.0) fL MCH (27.0-32.0) pg MCHC (31.0-37.0) g/dL RDW Std Deviation (28.0-62.0) fl RDW Coeff of Aranza (11.0-15.0) % Plt Count (150-400) K/uL MPV (7.40-12.00) fL Neut % (Auto) (48.0-80.0) % Lymph % (Auto) (16.0-40.0) % Phelps % (Auto) (0.0-15.0) % Eos % (Auto) (0.0-7.0) % Baso % (Auto) (0.0-1.5) % Neut # (Auto) (1.4-5.7) K/uL Lymph # (Auto) (0.6-2.4) K/uL Phelps # (Auto) (0.0-0.8) K/uL Eos # (Auto) (0.0-0.7) K/uL Baso # (Auto) (0.0-0.1) K/uL Nucleated RBC % /100WBC Nucleated RBCs # K/uL Sodium (136-145) mmol/L Potassium (3.5-5.1) mmol/L Chloride (98-107) mmol/L Carbon Dioxide (21.0-32.0) mmol/L BUN (7.0-18.0) mg/dL Creatinine (0.6-1.0) mg/dL Est Cr Clr Drug Dosing mL/min Estimated GFR (MDRD) ml/min Glucose (74-106) mg/dL POC Glucose (60-110) mg/dL Hemoglobin A1c (4.5-6.2) % Calcium (8.5-10.1) mg/dL Total Bilirubin (0.2-1.0) mg/dL AST (15-37) IU/L ALT (14-63) IU/L Alkaline Phosphatase (46-116) U/L Creatine Kinase (26-308) U/L Troponin I (0.000-0.056) ng/mL Total Protein (6.4-8.2) g/dL Albumin (3.4-5.0) g/dL Globulin (2.6-4.0) g/dL Albumin/Globulin Ratio (0.9-1.6) Triglycerides (0-200) mg/dL Cholesterol (50-200) mg/dL LDL Cholesterol, Calc (60-180) mg/dL VLDL Cholesterol (5-55) mg/dL HDL Cholesterol (40-60) mg/dL Cholesterol/HDL Ratio (3.3-6.0) Lipase (73-393) U/L Urine Color YELLOW Urine Appearance CLEAR Urine pH 5.5 (5.0-8.0) Ur Specific Marshall 1.020 (1.001-1.035) Urine Protein NEGATIVE (NEGATIVE) mg/dL Urine Glucose (UA) 500 H (NEGATIVE) mg/dL Urine Ketones NEGATIVE (NEGATIVE) mg/dL Urine Occult Blood NEGATIVE (NEGATIVE) Urine Nitrite NEGATIVE (NEGATIVE) Urine Bilirubin NEGATIVE (NEGATIVE) Urine Urobilinogen 0.2 (<2.0) EU/dL Ur Leukocyte Esterase NEGATIVE (NEGATIVE) Med Orders - Current: Current Medications Acetaminophen (Tylenol) 650 mg PO Q4H PRN PRN Reason: Pain (Mild 1-3)/fever Carvedilol (Coreg) 3.125 mg PO BIDMEALS [facility] Last Admin: 10/29/18 08:08 Dose: 3.125 mg Clopidogrel Bisulfate (Plavix) 75 mg PO DAILY [facility] Last Admin: 10/29/18 08:09 Dose: 75 mg Duloxetine HCl (Cymbalta) 60 mg PO DAILY [facility] Last Admin: 10/29/18 08:10 Dose: 60 mg Enoxaparin Sodium (Lovenox) 40 mg SUBCUT Q24H [facility] Last Admin: 10/28/18 15:45 Dose: 40 mg Ibuprofen (Motrin) 600 mg PO Q6H PRN PRN Reason: Pain (mild 1-3) Insulin Aspart (Novolog) 0 unit SUBCUT TIDAC [facility]; Protocol Last Admin: 10/29/18 13:14 Dose: 3 units Insulin Detemir (Levemir) 30 unit SUBCUT DAILY [facility] Losartan Potassium (Cozaar) 12.5 mg PO BEDTIME [facility] Last Admin: 10/28/18 21:12 Dose: 12.5 mg Morphine Sulfate (Morphine) 2 mg IVPUSH Q2H PRN PRN Reason: Pain Nitroglycerin (Nitrostat) 0.4 mg SL Q5M PRN PRN Reason: Chest Pain Last Admin: 10/28/18 15:44 Dose: 0.4 mg Ondansetron HCl (Zofran Odt) 4 mg PO Q4H PRN PRN Reason: nausea, able to take PO Ondansetron HCl (Zofran) 4 mg IVPUSH Q4H PRN PRN Reason: Nausea Oxybutynin Chloride (Oxybutynin) 5 mg PO BID [facility] Last Admin: 10/29/18 08:09 Dose: 5 mg [Desvenlafaxine Er] (100 Mg) 1 each PO DAILY [facility] Last Admin: 10/29/18 09:44 Dose: Not Given Sodium Chloride (Saline Flush) 10 ml FLUSH ASDIRECTED PRN PRN Reason: Keep Vein Open Last Admin: 10/28/18 14:14 Dose: 10 ml Sodium Chloride (Saline Flush) 2.5 ml FLUSH ASDIRECTED PRN PRN Reason: Keep Vein Open Last Admin: 10/28/18 14:14 Dose: 2.5 ml Temazepam (Restoril) 15 mg PO BEDTIME PRN PRN Reason: Sleep Discontinued Medications Aspirin (Aspirin) 324 mg PO ONETIME ONE Stop: 10/28/18 14:02 Last Admin: 10/28/18 14:13 Dose: 324 mg Atorvastatin Calcium (Lipitor) 80 mg PO BEDTIME [facility] Last Admin: 10/28/18 21:10 Dose: 80 mg Sodium Chloride (Normal Saline) 1,000 mls @ 125 mls/hr IV .BOLUS ONE Stop: 10/28/18 22:20 Last Admin: 10/28/18 14:25 Dose: 125 mls/hr Morphine Sulfate (Morphine) 2 mg IVPUSH ONETIME ONE Stop: 10/28/18 14:30 Last Admin: 10/28/18 14:41 Dose: 2 mg <Bubba Kerr - Last Filed: 10/30/18 19:28> - Patient Data Vitals - Most Recent: Last Vital Signs Temp 36.3 C 10/29/18 12:00 Pulse 88 10/29/18 12:00 Resp 20 10/29/18 12:00 BP 117/70 10/29/18 12:00 Pulse Ox 96 10/29/18 12:00 Med Orders - Current: Current Medications Discontinued Medications Acetaminophen (Tylenol) 650 mg PO Q4H PRN PRN Reason: Pain (Mild 1-3)/fever Aspirin (Aspirin) 324 mg PO ONETIME ONE Stop: 10/28/18 14:02 Last Admin: 10/28/18 14:13 Dose: 324 mg Atorvastatin Calcium (Lipitor) 80 mg PO BEDTIME [facility] Last Admin: 10/28/18 21:10 Dose: 80 mg Carvedilol (Coreg) 3.125 mg PO BIDMEALS [facility] Last Admin: 10/29/18 08:08 Dose: 3.125 mg Clopidogrel Bisulfate (Plavix) 75 mg PO DAILY [facility] Last Admin: 10/29/18 08:09 Dose: 75 mg Duloxetine HCl (Cymbalta) 60 mg PO DAILY [facility] Last Admin: 10/29/18 08:10 Dose: 60 mg Enoxaparin Sodium (Lovenox) 40 mg SUBCUT Q24H [facility] Last Admin: 10/29/18 17:26 Dose: Not Given Heparin Sodium (Porcine) (Heparin Lock Flush 100 Units/Ml) 500 units FLUSH ASDIRECTED ONE Stop: 10/29/18 14:50 Last Admin: 10/29/18 15:04 Dose: 500 units Sodium Chloride (Normal Saline) 1,000 mls @ 125 mls/hr IV .BOLUS ONE Stop: 10/28/18 22:20 Last Admin: 10/28/18 14:25 Dose: 125 mls/hr Ibuprofen (Motrin) 600 mg PO Q6H PRN PRN Reason: Pain (mild 1-3) Insulin Aspart (Novolog) 0 unit SUBCUT TIDAC [facility]; Protocol Last Admin: 10/29/18 13:14 Dose: 3 units Insulin Detemir (Levemir) 30 unit SUBCUT DAILY [facility] Losartan Potassium (Cozaar) 12.5 mg PO BEDTIME [facility] Last Admin: 10/28/18 21:12 Dose: 12.5 mg Morphine Sulfate (Morphine) 2 mg IVPUSH ONETIME ONE Stop: 10/28/18 14:30 Last Admin: 10/28/18 14:41 Dose: 2 mg Morphine Sulfate (Morphine) 2 mg IVPUSH Q2H PRN PRN Reason: Pain Nitroglycerin (Nitrostat) 0.4 mg SL Q5M PRN PRN Reason: Chest Pain Last Admin: 10/28/18 15:44 Dose: 0.4 mg Ondansetron HCl (Zofran Odt) 4 mg PO Q4H PRN PRN Reason: nausea, able to take PO Ondansetron HCl (Zofran) 4 mg IVPUSH Q4H PRN PRN Reason: Nausea Oxybutynin Chloride (Oxybutynin) 5 mg PO BID [facility] Last Admin: 10/29/18 08:09 Dose: 5 mg [Desvenlafaxine Er] (100 Mg) 1 each PO DAILY [facility] Last Admin: 10/29/18 09:44 Dose: Not Given Sodium Chloride (Saline Flush) 10 ml FLUSH ASDIRECTED PRN PRN Reason: Keep Vein Open Last Admin: 10/28/18 14:14 Dose: 10 ml Sodium Chloride (Saline Flush) 2.5 ml FLUSH ASDIRECTED PRN PRN Reason: Keep Vein Open Last Admin: 10/28/18 14:14 Dose: 2.5 ml Temazepam (Restoril) 15 mg PO BEDTIME PRN PRN Reason: Sleep - Free Text/Narrative Note: I have examined the patient. I have discussed findings and treatment plan with the resident. I agree with the assessment and plan outlined in the following resident's note.
[2018-10-29] MEDS: Enoxaparin 40 MG/0.4 ML Syringe SUBCUT SCH (17:26)
[2018-10-29] MEDS ORDERED: Insulin Detemir 100 Units/ML 3 ML Pen SUBCUT SCH (21:00)
== END 2018-10-29 16:05 | disposition home or self-care (01) ==
LOC: MW.ED 13:26 → MW.MS 14:44 → UNDOADMOB 14:44 → MW.MS 14:47
PROVIDERS: ADMIT Internal Medicine; ATTEND Internal Medicine
DX: R07.2 Precordial pain (principal); R30.0 Dysuria; R10.2 Pelvic and perineal pain; I25.10 Atherosclerotic heart disease of native coronary artery without angina pectoris; I10 Essential (primary) hypertension; E11.9 Type 2 diabetes mellitus without complications; E78.5 Hyperlipidemia, unspecified; C85.90 Non-Hodgkin lymphoma, unspecified, unspecified site; F41.9 Anxiety disorder, unspecified; Z90.49 Acquired absence of other specified parts of digestive tract; Z88.0 Allergy status to penicillin; Z91.09 Other allergy status, other than to drugs and biological substances; Z95.5 Presence of coronary angioplasty implant and graft; Z87.440 Personal history of urinary (tract) infections; Z79.4 Long term (current) use of insulin; Z79.02 Long term (current) use of antithrombotics/antiplatelets; Z79.899 Other long term (current) drug therapy
CPT/HCPCS: 36415; 76700; 80053; 80061; 80074; 81003; 82550; 82962; 83036; 83690; 84484; 85025; 93005; 96361; 96374; 99285; A9270; J1642; J1650; J1815; J2270; J7040; 96372; G0378

== ENCOUNTER 2019-04-04 10:18 | Emergency (ER) | payer MEDICARE, OTHER ==
[2019-04-04] MEDS ORDERED: Sodium Chloride 0.9% 1,000 ML IV ONE (10:43)
[2019-04-04] MEDS ORDERED: Ondansetron 4 MG/2 ML SDV IVPUSH ONE (10:43)
--- NOTE | 2019-04-04 10:56 | EDM.PDOC ---
ED HPI GENERAL MEDICAL PROBLEM - General Chief Complaint: Abdominal Pain Stated Complaint: PAIN ON THE BACK OF HER HEAD Time Seen by Provider: 04/04/19 10:27 Source of Information: Reports: Patient History Limitations: Reports: No Limitations - History of Present Illness INITIAL COMMENTS - FREE TEXT/NARRATIVE: HISTORY AND PHYSICAL: History of present illness: Patient is a 69-year-old female who presents to the emergency room with complaints of a posterior headache 2-3 days. She states she has had a generalized headache, worse in the posterior scalp over the past 2-3 days which was worsened this morning. No light or noise sensitivity. She has a history of brainstem/spinal cord lesions and believes this may have something to do with today's headache. Patient does also have a history of stroke which resulted in chronic left upper extremity numbness/pain. She typically does take oxycodone for chronic pain, hasn't taken any today. She states she took 2 tabs of extra strength Tylenol this morning; without relief. The patient did call Dr. Frances's office this morning who recommended she come to the emergency room. Although patient reports she is here mainly for her headache pain; she does mention she had some abdominal pain yesterday which has now resolved. Reports she has history of reoccurent UTI's. Patient denies any fever, chills, change in vision, syncope or near syncope. Denies any chest pain, back pain, shortness of breath or cough. Denies any abdominal pain, vomiting, diarrhea, constipation or dysuria. Has not noted any blood in urine or stool. Patient has been eating and drinking appropriately. Review of systems: As per history of present illness and below otherwise all systems reviewed and negative. Past medical history: As per history of present illness and as reviewed below otherwise noncontributory. Surgical history: As per history of present illness and as reviewed below otherwise noncontributory. Social history: See social history for further information Family history: As per history of present illness and as reviewed below otherwise noncontributory. Physical exam: General: Well-developed and well-nourished 69-year-old female. Alert and oriented. Nontoxic appearing, flat affect, and in no acute distress. HEENT: Atraumatic, normocephalic, pupils equal and reactive bilaterally, negative for conjunctival pallor or scleral icterus, mucous membranes moist, TMs normal bilaterally, throat clear, neck supple, nontender, trachea midline. No drooling or trismus noted. No meningeal signs. No hot potato voice noted. Lungs: Clear to auscultation, breath sounds equal bilaterally, chest nontender. Heart: S1S2, regular rate and rhythm without overt murmur Abdomen: Soft, nondistended, nontender. Negative for masses or hepatosplenomegaly. Negative for costovertebral tenderness. Pelvis: Stable nontender. Skin: Intact, warm, dry. No lesions or rashes noted. Extremities: Atraumatic, moves all extremities per self without difficulty or deficits, negative for cords or calf pain. Neurovascular unremarkable. Neuro: Awake, alert, oriented. Cranial nerves II through XII unremarkable. Cerebellum unremarkable. Motor and sensory unremarkable throughout. Exam nonfocal. Notes: I was able to consult with Dr Frances about her patient. She states that her staff was trying to get the patient and expedited follow-up for MRI of the brain and cervical spine. She states that if we are able to get her the MRI today that that would be more beneficial than a head CT. Patient initially denied any chest pain when assessed and interviewed. Patient reports a dull midsternal chest pain at 1215. EKG shows no significant changes. VSS. Patient reports that 10-15 minutes after experiencing less dull pain she states that has resolved. She does describe that episodes like this occur intermittently and this is not alarming to her. The radiologist wanted to talk with Dr. Crowley about previous imaging results. I did offer patient admission for her chest pain that she was experiencing previous (to r/o NM). She declines. No significant findings that would suggest patient needs to be admitted at this time. Dr Santiago will see the patient tomorrow in clinic. Patient is aware of these findings. She states that her headache has improved. Vital signs remain stable. Signs and symptoms that would prompt her to return to the emergency room were reviewed and discussed. Supportive care measures were reviewed. She denies any further questions or concerns. Diagnostics: CBC, CMP, UA, EKG, MRI brain/cervical spine w and w/o Therapeutics: IV fluids, Zofran, Morphine Prescription: None Impression: Headache Atypical chest pain Plan: 1. Dr Frances's office will get you an appointment to be seen this week. 2. Return to the ED as needed and as discussed. Definitive disposition and diagnosis as appropriate pending reevaluation and review of above. Head Pain Score (Numeric/FACES): 8 - Related Data Allergies Allergy/AdvReac Type Severity Reaction Status Date / Time Penicillins Allergy Severe Cannot Verified 04/04/19 10:41 Remember silver Allergy Rash Verified 04/04/19 10:41 [From Tegaderm AG Mesh] Home Meds: Home Meds ALPRAZolam [Xanax] 0.25 mg PO DAILY PRN 06/18/17 [History] Clopidogrel [Plavix] 75 mg PO DAILY 06/18/17 [History] Losartan [Cozaar] 25 mg PO BEDTIME 06/18/17 [History] Meclizine [Antivert] 12.5 mg PO TID PRN 06/18/17 [History] Nitroglycerin [Nitrostat] 0.4 mg SL ASDIRECTED PRN 06/18/17 [History] atorvaSTATin [Lipitor] 80 mg PO BEDTIME 06/18/17 [History] oxyCODONE 5 mg PO Q4H PRN 06/18/17 [History] Albuterol [Ventolin HFA] 1 puff INH Q6H PRN 10/19/17 [History] Amitriptyline [Elavil] 10 mg PO BEDTIME 10/19/17 [History] DULoxetine [Cymbalta] 60 mg PO DAILY 10/19/17 [History] Desvenlafaxine [Desvenlafaxine ER] 100 mg PO DAILY 10/19/17 [History] Furosemide 40 mg PO DAILY PRN 10/19/17 [History] Gemfibrozil 600 mg PO BIDMEALS 10/19/17 [History] Insulin Degludec [Tresiba Flextouch U-200] 48 unit SQ WEEKLY 10/19/17 [History] InFLIXimab [Remicade] 500 mg IV WEEKLY 12/08/17 [History] Insulin Glargine,Hum.Rec.Anlog [Basaglar Kwikpen U-100] 50 units SQ BEDTIME [History] Levothyroxine [Synthroid] 50 mcg PO DAILY 04/04/19 [History] Past Medical History HEENT History: Reports: Impaired Vision Cardiovascular History: Reports: Angina, Bypass, Hypertension, Stents Other Cardiovascular History: 'partial heart' Respiratory History: Reports: Sleep Apnea Other Respiratory History: pneumonia Gastrointestinal History: Reports: None Genitourinary History: Reports: UTI, Recurrent 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 stroke in the passed 6 months. stroke affecting left arm. numbnessl to left arm. Psychiatric History: Reports: Anxiety, Depression Endocrine/Metabolic History: Reports: Diabetes, Type II, Hypothyroidism Hematologic History: Reports: Other (See Below) Other Hematologic History: Easy bruising, not on anticoagulant therapy Immunologic History: Reports: None Oncologic (Cancer) History: Reports: Lymphoma Dermatologic History: Reports: None - Infectious Disease History Infectious Disease History: Reports: Chicken Pox, Measles, Mumps - Past Surgical History Head Surgeries/Procedures: Reports: None HEENT Surgical History: Reports: Adenoidectomy, Cataract Surgery, Tonsillectomy , Other (See Below) Other HEENT Surgeries/Procedures: Sinus surgery, blepheroplasty Other Cardiovascular Surgeries/Procedures: 3 bypasses, 10 stents GI Surgical History: Reports: Cholecystectomy Female Surgical History: Reports: None Neurological Surgical History: Reports: None Musculoskeletal Surgical History: Reports: Carpal Tunnel Dermatological Surgical History: Reports: None Social & Family History - Family History Family Medical History: Noncontributory - Tobacco Use Smoking Status *Q: Never Smoker - Caffeine Use Caffeine Use: Reports: None - Recreational Drug Use Recreational Drug Use: No ED ROS GENERAL - Review of Systems Review Of Systems: Comprehensive ROS is negative, except as noted in HPI. ED EXAM, HEAD INJURY - Physical Exam Exam: See Below (See dictation) Course - Vital Signs Last Recorded V/S: Last Vital Signs Temp 97.0 F 04/04/19 15:40 Pulse 87 04/04/19 15:40 Resp 16 04/04/19 15:40 BP 113/59 L 04/04/19 15:40 Pulse Ox 94 L 04/04/19 15:40 - Orders/Labs/Meds Orders: Active Orders 24 hr Category Date Time Status EKG Documentation Completion [RC] STAT Care 04/04/19 12:12 Active UA RFX JOSE MANUEL AND CULT IF INDIC [URIN] Stat Lab 04/04/19 11:09 Ordered Labs: Laboratory Tests 04/04/19 04/04/19 04/04/19 Range/Units 11:36 11:36 11:36 WBC 6.54 (4.0-11.0) K/uL RBC 4.74 (4.30-5.90) M/uL Hgb 14.4 (12.0-16.0) g/dL Hct 42.4 (36.0-46.0) % MCV 89.5 (80.0-98.0) fL MCH 30.4 (27.0-32.0) pg MCHC 34.0 (31.0-37.0) g/dL RDW Std Deviation 45.3 (28.0-62.0) fl RDW Coeff of Aranza 14 (11.0-15.0) % Plt Count 155 (150-400) K/uL MPV 10.00 (7.40-12.00) fL Neut % (Auto) 45.8 L (48.0-80.0) % Lymph % (Auto) 42.4 H (16.0-40.0) % Jessamine % (Auto) 10.4 (0.0-15.0) % Eos % (Auto) 0.8 (0.0-7.0) % Baso % (Auto) 0.6 (0.0-1.5) % Neut # (Auto) 3.0 (1.4-5.7) K/uL Lymph # (Auto) 2.8 H (0.6-2.4) K/uL Jessamine # (Auto) 0.7 (0.0-0.8) K/uL Eos # (Auto) 0.1 (0.0-0.7) K/uL Baso # (Auto) 0.0 (0.0-0.1) K/uL Nucleated RBC % 0.0 /100WBC Nucleated RBCs # 0 K/uL Sodium 140 (136-145) mmol/L Potassium 4.0 (3.5-5.1) mmol/L Chloride 104 (98-107) mmol/L Carbon Dioxide 25.3 (21.0-32.0) mmol/L BUN 21 H (7.0-18.0) mg/dL Creatinine 1.6 H (0.6-1.0) mg/dL Est Cr Clr Drug Dosing 31.94 mL/min Estimated GFR (MDRD) 32.2 ml/min Glucose 259 H (74-106) mg/dL Calcium 8.5 (8.5-10.1) mg/dL Total Bilirubin 1.1 H (0.2-1.0) mg/dL AST 18 (15-37) IU/L ALT 18 (14-63) IU/L Alkaline Phosphatase 115 (46-116) U/L Troponin I < 0.050 (0.000-0.056) ng/mL Total Protein 5.6 L (6.4-8.2) g/dL Albumin 2.7 L (3.4-5.0) g/dL Globulin 2.9 (2.6-4.0) g/dL Albumin/Globulin Ratio 0.9 (0.9-1.6) Meds: Medications Discontinued Medications Generic Name Dose Route Start Last Admin Trade Name Freq PRN Reason Stop Dose Admin Gadobenate Dimeglumine 18 ml 04/04/19 11:37 04/04/19 11:41 Multihance IVPUSH 04/04/19 11:38 18 ml ONETIME STA Administration Sodium Chloride 1,000 mls @ 999 mls/hr 04/04/19 10:43 04/04/19 11:40 Normal Saline IV 04/04/19 11:43 999 mls/hr STAT ONE Administration Morphine Sulfate 2 mg 04/04/19 11:04 04/04/19 11:41 Morphine IVPUSH 04/04/19 11:05 2 mg ONETIME ONE Administration Ondansetron HCl 4 mg 04/04/19 10:43 04/04/19 11:40 Zofran IVPUSH 04/04/19 10:44 4 mg ONETIME ONE Administration Departure - Departure Time of Disposition: 16:22 Disposition: Home, Self-Care 01 Clinical Impression: Atypical chest pain Headache Qualifiers: Headache type: unspecified Headache chronicity pattern: unspecified pattern Intractability: not intractable Qualified Code(s): R51 - Headache - Discharge Information Instructions: Nonspecific Chest Pain, [id number], General Headache Without Cause, [id number] Referrals: Salvador Gonzáles MD [Primary Care Provider] - Forms: ED Department Discharge Additional Instructions: The following information is given to patients seen in the emergency department who are being discharged to home. This information is to outline your options for follow-up care. We provide all patients seen in our emergency department with a follow-up referral. The need for follow-up, as well as the timing and circumstances, are variable depending upon the specifics of your emergency department visit. If you don't have a primary care physician on staff, we will provide you with a referral. We always advise you to contact your personal physician following an emergency department visit to inform them of the circumstance of the visit and for follow-up with them and/or the need for any referrals to a consulting specialist. The emergency department will also refer you to a specialist when appropriate. This referral assures that you have the opportunity for follow-up care with a specialist. All of these measure are taken in an effort to provide you with optimal care, which includes your follow-up. Under all circumstances we always encourage you to contact your private physician who remains a resource for coordinating your care. When calling for follow-up care, please make the office aware that this follow-up is from your recent emergency room visit. If for any reason you are refused follow-up, please contact the [facility] Emergency Department at and asked to speak to the emergency department charge nurse. [facility] [address] [place], [place] [id number] [place] [address] Frances's office will get you an appointment to be seen this week. 2. Return to the ED as needed and as discussed. - My Orders Last 24 Hours: My Active Orders 04/04/19 11:09 UA RFX JOSE MANUEL AND CULT IF INDIC [URIN] Stat 04/04/19 12:12 EKG Documentation Completion [RC] STAT - Assessment/Plan Last 24 Hours: My Active Orders 04/04/19 11:09 UA RFX JOSE MANUEL AND CULT IF INDIC [URIN] Stat 04/04/19 12:12 EKG Documentation Completion [RC] STAT
[2019-04-04] MEDS ORDERED: Morphine 2 MG/ML Syringe IVPUSH ONE (11:04)
[2019-04-04] MEDS ORDERED: Gadobenate Dimeglumine 529 MG/ML 20 ML SDV IVPUSH STA (11:37)
[2019-04-04 12:10] LABS: CARBON DIOXIDE,CO2 25.3 mmol/L (21.0-32.0)
--- NOTE | 2019-04-04 15:48 | MR ---
INDICATION: History of lower medulla/cord lesions since 2017 with empiric treatment of corticosteroids. TECHNIQUE: Cervical spine MRI with contrast. The following sequences were obtained: Sagittal T1, T2 weighted and STIR sequences. Axial T2 gradient sequence. Axial and Sagittal T1 weighted post contrast sequences. gadolinium based intravenous contrast agent was used. COMPARISON: : Cervical spine MRI from 04/13/2018. FINDINGS: : Motion artifact obscures fine detail. Again demonstrated is the confluent T2 hyperintense lesion involving the lower medulla and upper cervical cord on the left. The craniocaudal extent of cord and medullary signal alteration is slightly reduced since the prior exam. Best seen on the cervical spine post-contrast imaging are stippled foci of pial/parenchymal enhancement involving the anterior and lateral medulla on the left as well as the anterior pial surface of the cord. Accounting for differences in technique, these foci of enhancement are similar when compared to the prior exam. There are additional equivocal foci of enhancement along the pial surface of the cervical cord at C2 through C4. Also again demonstrated is the flame shaped T2 hyperintense intramedullary lesion which spans from C4 to C7, involving both the central rausch matter as well as the right greater than left dorsal columns. The cord is mildly expansile at the C5-6 level, which is similar to the prior exam. There is superimposed faint parenchymal and pial enhancement involving the cord, slightly greater on the right. Postsurgical changes of suboccipital craniotomy and posterior C1 arch resection are noted. Suboccipital enhancement is decreased since prior exam. Normal cervical alignment. No spondylolisthesis. No compression fracture or aggressive marrow signal abnormality. Findings at individual levels as follows: Spinal canal and neural foramina: C2-C3: No spinal canal or neural foraminal narrowing. C3-C4: No spinal canal or neural foraminal narrowing. C4-C5: Shallow left central disc osteophyte complex flattens the ventral thecal sac. No substantial spinal canal or neural foraminal narrowing. C5-C6: Posterior disc protrusion flattens the anterior cord and when combined with ligamentum flavum thickening results in mild spinal canal stenosis. Left uncovertebral arthropathy contributes to mild neural foraminal narrowing. No right neural foraminal narrowing. C6-C7: Posterior disc protrusion contacts the anterior cord. When combined with ligamentum flavum thickening there is mild spinal canal narrowing. Bilateral uncovertebral and facet arthropathy with mild bilateral neural foraminal narrowing. C7-T1: No spinal canal or neural foraminal narrowing. Imaged upper thoracic levels: No spinal canal or neural foraminal narrowing. IMPRESSION: : 1. Again demonstrated is the T2 hyperintense lesion involving the left inferior medulla and upper cervical cord, with stable amount of enhancement since the prior exam, and slightly decreased craniocaudal extent. Also again demonstrated is the mildly expansile T2 hyperintense lesion within the cervical cord at C4 through C7 with faint parenchymal and pial enhancement. This lesion appears stable compared to the prior exam. Given the longstanding history of these lesions as well as their appearance, the favored etiology is an inflammatory process such as neurosarcoidosis or other granulomatous disease. These lesions are not typical for multiple sclerosis, although other demyelinating processes such as neuromyelitis optica could conceivably have this appearance. 2. Equivocal pial enhancement along the anterior cervical cord at C2 through C4. 3. Stable mild cervical spondylosis. Dictated by Kashmir Tejada MD @ Apr 04 2019 2:42PM Signed by Dr. Kashmir Tejada @ Apr 04 2019 3:47PM
[2019-04-04 15:59] VITALS: BP 113/59; PULSE 87
--- NOTE | 2019-04-04 16:09 | MR ---
EXAM DATE: 04/04/19 PATIENT'S AGE: 69 Patient: CLARICE ISAACS Facility: [facility] Site Site : 1950 Study: MRI-Head W/ and W/O Cont [id number] 2:37:17 PM Ordering Physician: BRIDGER ROMAN Final Report: INDICATION: History of malignancy. Evaluate for intracranial metastatic disease. TECHNIQUE: Brain MRI with contrast. The following sequences were obtained: DWI and ADC mapping sequences. Axial FLAIR and ENMANUEL T2 weighted sequences. SWI sequences. 3D T1 weighted precontrast and post-contrast sequences. gadolinium based contrast agent was used. COMPARISON: Brain MRI from 04/13/2018. FINDINGS: No acute infarction. Focus of chronic hemorrhage within the left inferior lateral cerebellar hemisphere, with differential considerations including cavernoma versus sequela of hypertension. Stable since prior exam. No pathologic intracranial enhancement. T2 hyperintense lesions involving the left precentral gyrus cortex and subcortical white matter, right corpus callosum body and left inferior medulla/upper cervical cord. Additional small to punctate T2 hyperintensities scattered elsewhere within the supratentorial white matter. Tiny chronic lacunar infarcts within both thalami and central brainstem. No mass effect or herniation. No hydrocephalus or extra-axial collections. The pituitary gland, parasellar structures and optic chiasm are normal. All the major intracranial vascular structures demonstrate normal flow- related signal. Bilateral intra-ocular lens implants. No calvarial or skull base marrow signal abnormality. No obstructive sinus disease. No extracranial soft tissue findings. IMPRESSION: 1. No evidence of intracranial metastatic disease. No enhancing intracranial lesions. 2. No acute intracranial abnormalities, including no evidence of acute infarction. 3. 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 Differential considerations include cavernoma or sequela of hypertension. 4. T2 hyperintense lesions within the left precentral gyrus, right corpus callosum body and left inferior medulla/upper cervical cord. These are nonspecific, but could reflect foci of chronic ischemia, or old demyelination/ inflammation. They are stable compared to prior exam. 5. There are also multiple small lacunar infarcts within the bilateral thalami and central brainstem, as well as scattered chronic small vessel ischemic disease within the supratentorial white matter. Dictated by Kashmir Tejada MD @ Apr 04 2019 2:42PM ----- ADDENDUM ----- Due to motion degraded postcontrast brain MRI, the cervical spine MRI postcontrast images better demonstrate stippled foci of enhancement superimposed upon the T2 hyperintense left inferior medulla/upper cervical cord lesion. See complete discussion of this finding in the dedicated cervical spine MRI report. Dictated by Kashmir Tejada MD @ Apr 04 2019 3:48PM Signed by: Kashmir Tejada MD @04/04/2019 3:50:06 PM (Electronic Signature) Report Signed by Proxy. PATRICK
== END 2019-04-04 16:40 | disposition home or self-care (01) ==
LOC: MW.ED 10:18
DX: R51 Headache (principal); R07.89 Other chest pain; I10 Essential (primary) hypertension; F41.9 Anxiety disorder, unspecified; F32.9 Major depressive disorder, single episode, unspecified; E11.9 Type 2 diabetes mellitus without complications; E03.9 Hypothyroidism, unspecified; Z88.0 Allergy status to penicillin; Z88.8 Allergy status to other drugs, medicaments and biological substances; Z79.899 Other long term (current) drug therapy; Z79.02 Long term (current) use of antithrombotics/antiplatelets; Z79.4 Long term (current) use of insulin; Z86.73 Personal history of transient ischemic attack (TIA), and cerebral infarction without residual deficits
CPT/HCPCS: 36415; 70553; 72156; 80053; 84484; 85025; 93005; 96361; 96374; 96375; 99284; A9577; J1642; J2270; J2405; J7040; 99285; J7030

== ENCOUNTER 2019-06-25 12:18 | Observation (INO) | payer MEDICARE, OTHER ==
--- NOTE | 2019-06-25 12:35 | EDM.PDOC ---
ED HPI GENERAL MEDICAL PROBLEM - General Chief Complaint: Chest Pain Stated Complaint: SOB AND CHEST PAIN Time Seen by Provider: 06/25/19 12:35 Source of Information: Reports: Patient - History of Present Illness INITIAL COMMENTS - FREE TEXT/NARRATIVE: HISTORY AND PHYSICAL: History of present illness: [Presents with intermittent chest pain shortness of breath no pain at present she does have history of diabetes and has been noncompliant with her insulin regimen over the last 2 to 3 days she has not been feeling well her main complaint is dysuria at current no fever chills or sweats no current chest pain headache dizziness palpitation no bowel or urine symptoms breathing is nonlabored ] Review of systems: As per history of present illness and below otherwise all systems reviewed and negative. Past medical history: As per history of present illness and as reviewed below otherwise noncontributory. Surgical history: As per history of present illness and as reviewed below otherwise noncontributory. Social history: No reported history of drug or alcohol abuse. Family history: As per history of present illness and as reviewed below otherwise noncontributory. Physical exam: HEENT: Atraumatic, normocephalic, pupils reactive, negative for conjunctival pallor or scleral icterus, mucous membranes moist, throat clear, neck supple, nontender, trachea midline. Lungs: Clear to auscultation, breath sounds equal bilaterally, chest nontender. Heart: S1S2, regular, negative for clicks, rubs, or JVD. Abdomen: Soft, nondistended, nontender. Negative for masses or hepatosplenomegaly. Negative for costovertebral tenderness. Pelvis: Stable nontender. Genitourinary: Deferred. Rectal: Deferred. Extremities: Atraumatic, negative for cords or calf pain. Neurovascular unremarkable. Neuro: Awake, alert, oriented. Cranial nerves II through XII unremarkable. Cerebellum unremarkable. Motor and sensory unremarkable throughout. Exam nonfocal. Diagnostics: [The CMP UA troponin EKG Chest 1 view ] Therapeutics: [Saline Insulin Rocephin ] Impression: [atypical chest pain Diabetes history UTI Medication noncompliance] Definitive disposition and diagnosis as appropriate pending reevaluation and review of above. Left Chest Pain Score (Numeric/FACES): 4 - Related Data Allergies Allergy/AdvReac Type Severity Reaction Status Date / Time Penicillins Allergy Severe Cannot Verified 06/25/19 12:24 Remember silver Allergy Rash Verified 06/25/19 12:24 [From Tegaderm AG Mesh] Home Meds: Home Meds ALPRAZolam [Xanax] 0.25 mg PO DAILY PRN 06/18/17 [History] Clopidogrel [Plavix] 75 mg PO DAILY 06/18/17 [History] Losartan [Cozaar] 25 mg PO BEDTIME 06/18/17 [History] Nitroglycerin [Nitrostat] 0.4 mg SL ASDIRECTED PRN 06/18/17 [History] atorvaSTATin [Lipitor] 80 mg PO BEDTIME 06/18/17 [History] oxyCODONE 5 mg PO Q4H PRN 06/18/17 [History] Amitriptyline [Elavil] 10 mg PO BEDTIME 10/19/17 [History] DULoxetine [Cymbalta] 60 mg PO DAILY 10/19/17 [History] Furosemide 40 mg PO DAILY PRN 10/19/17 [History] Gemfibrozil 600 mg PO BIDMEALS 10/19/17 [History] Insulin Degludec [Tresiba Flextouch U-200] 48 unit SQ WEEKLY 10/19/17 [History] Insulin Glargine,Hum.Rec.Anlog [Basaglar Kwikpen U-100] 50 units SQ BEDTIME [History] Levothyroxine [Synthroid] 50 mcg PO DAILY 04/04/19 [History] Past Medical History HEENT History: Reports: Impaired Vision Cardiovascular History: Reports: Angina, Bypass, Hypertension, Stents Other Cardiovascular History: 'partial heart' Respiratory History: Reports: Sleep Apnea Other Respiratory History: pneumonia Gastrointestinal History: Reports: None Genitourinary History: Reports: UTI, Recurrent 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 stroke in the passed 6 months. stroke affecting left arm. numbnessl to left arm. Psychiatric History: Reports: Anxiety, Depression Endocrine/Metabolic History: Reports: Diabetes, Type II, Hypothyroidism Hematologic History: Reports: Other (See Below) Other Hematologic History: Easy bruising, not on anticoagulant therapy Immunologic History: Reports: None Oncologic (Cancer) History: Reports: Lymphoma Dermatologic History: Reports: None - Infectious Disease History Infectious Disease History: Reports: Chicken Pox, Measles, Mumps - Past Surgical History Head Surgeries/Procedures: Reports: None HEENT Surgical History: Reports: Adenoidectomy, Cataract Surgery, Tonsillectomy , Other (See Below) Other HEENT Surgeries/Procedures: Sinus surgery, blepheroplasty Other Cardiovascular Surgeries/Procedures: 3 bypasses, 10 stents GI Surgical History: Reports: Cholecystectomy Female Surgical History: Reports: None Neurological Surgical History: Reports: None Musculoskeletal Surgical History: Reports: Carpal Tunnel Dermatological Surgical History: Reports: None Social & Family History - Family History Family Medical History: Noncontributory - Caffeine Use Caffeine Use: Reports: None ED ROS GENERAL - Review of Systems Review Of Systems: See Below ED EXAM, GENERAL - Physical Exam Exam: See Below Course - Vital Signs Last Recorded V/S: Last Vital Signs Temp 96.8 F 06/25/19 12:29 Pulse 91 06/25/19 13:35 Resp 16 06/25/19 13:35 BP 116/89 06/25/19 13:35 Pulse Ox 92 L 06/25/19 13:35 - Orders/Labs/Meds Orders: Active Orders 24 hr Category Date Time Status EKG Documentation Completion [RC] STAT Care 06/25/19 12:23 Active CULTURE URINE [RM] Stat Lab 06/25/19 13:00 Received Sodium Chloride 0.9% [Normal Saline] 1,000 ml Med 06/25/19 12:45 Active IV STAT cefTRIAXone [Rocephin in Dextrose,Iso-Osm 1 GM/50 ML] 1 Med 06/25/19 14:11 Ordered gm Premix Bag 1 bag IV ONETIME Medication Orders Sodium Chloride (Normal Saline) 1,000 mls @ 125 mls/hr IV STAT CHANTE Last Admin: 06/25/19 13:05 Dose: 125 mls/hr Labs: Laboratory Tests 06/25/19 06/25/19 06/25/19 Range/Units 12:37 12:37 12:37 WBC 4.67 (4.0-11.0) K/uL RBC 3.89 L (4.30-5.90) M/uL Hgb 11.8 L (12.0-16.0) g/dL Hct 34.1 L (36.0-46.0) % MCV 87.7 (80.0-98.0) fL MCH 30.3 (27.0-32.0) pg MCHC 34.6 (31.0-37.0) g/dL RDW Std Deviation 47.4 (28.0-62.0) fl RDW Coeff of [place]anza 15 (11.0-15.0) % Plt Count 123 L (150-400) K/uL MPV 9.80 (7.40-12.00) fL Neut % (Auto) 39.2 L (48.0-80.0) % Lymph % (Auto) 48.4 H (16.0-40.0) % [place] % (Auto) 9.9 (0.0-15.0) % Eos % (Auto) 1.9 (0.0-7.0) % Baso % (Auto) 0.6 (0.0-1.5) % Neut # (Auto) 1.8 (1.4-5.7) K/uL Lymph # (Auto) 2.3 (0.6-2.4) K/uL [place] # (Auto) 0.5 (0.0-0.8) K/uL Eos # (Auto) 0.1 (0.0-0.7) K/uL Baso # (Auto) 0.0 (0.0-0.1) K/uL Nucleated RBC % 0.0 /100WBC Nucleated RBCs # 0 K/uL INR 0.98 Sodium 139 (136-145) mmol/L Potassium 3.7 (3.5-5.1) mmol/L Chloride 104 (98-107) mmol/L Carbon Dioxide 23.0 (21.0-32.0) mmol/L BUN 13 (7.0-18.0) mg/dL Creatinine 1.1 H (0.6-1.0) mg/dL Est Cr Clr Drug Dosing 48.26 mL/min Estimated GFR (MDRD) 49.5 ml/min Glucose 514 H* (74-106) mg/dL POC Glucose (60-110) mg/dL Calcium 7.6 L (8.5-10.1) mg/dL Total Bilirubin 0.8 (0.2-1.0) mg/dL AST 19 (15-37) IU/L ALT 19 (14-63) IU/L Alkaline Phosphatase 117 H (46-116) U/L Troponin I < 0.050 (0.000-0.056) ng/mL Total Protein 4.9 L (6.4-8.2) g/dL Albumin 2.2 L (3.4-5.0) g/dL Globulin 2.7 (2.6-4.0) g/dL Albumin/Globulin Ratio 0.8 L (0.9-1.6) Lipase 83 (73-393) U/L Urine Color Urine Appearance Urine pH (5.0-8.0) Ur Specific [place] (1.001-1.035) Urine Protein (NEGATIVE) mg/dL Urine Glucose (UA) (NEGATIVE) mg/dL Urine Ketones (NEGATIVE) mg/dL Urine Occult Blood (NEGATIVE) Urine Nitrite (NEGATIVE) Urine Bilirubin (NEGATIVE) Urine Urobilinogen (<2.0) EU/dL Ur Leukocyte Esterase (NEGATIVE) Urine RBC (0-2/HPF) Urine WBC (0-5/HPF) Ur Epithelial Cells (NONE-FEW) Urine Bacteria (NEGATIVE) 06/25/19 06/25/19 Range/Units 13:00 14:08 WBC (4.0-11.0) K/uL RBC (4.30-5.90) M/uL Hgb (12.0-16.0) g/dL Hct (36.0-46.0) % MCV (80.0-98.0) fL MCH (27.0-32.0) pg MCHC (31.0-37.0) g/dL RDW Std Deviation (28.0-62.0) fl RDW Coeff of [place] (11.0-15.0) % Plt Count (150-400) K/uL MPV (7.40-12.00) fL Neut % (Auto) (48.0-80.0) % Lymph % (Auto) (16.0-40.0) % [place] % (Auto) (0.0-15.0) % Eos % (Auto) (0.0-7.0) % Baso % (Auto) (0.0-1.5) % Neut # (Auto) (1.4-5.7) K/uL Lymph # (Auto) (0.6-2.4) K/uL [place] # (Auto) (0.0-0.8) K/uL Eos # (Auto) (0.0-0.7) K/uL Baso # (Auto) (0.0-0.1) K/uL Nucleated RBC % /100WBC Nucleated RBCs # K/uL INR Sodium (136-145) mmol/L Potassium (3.5-5.1) mmol/L Chloride (98-107) mmol/L Carbon Dioxide (21.0-32.0) mmol/L BUN (7.0-18.0) mg/dL Creatinine (0.6-1.0) mg/dL Est Cr Clr Drug Dosing mL/min Estimated GFR (MDRD) ml/min Glucose (74-106) mg/dL POC Glucose 372 H (60-110) mg/dL Calcium (8.5-10.1) mg/dL Total Bilirubin (0.2-1.0) mg/dL AST (15-37) IU/L ALT (14-63) IU/L Alkaline Phosphatase (46-116) U/L Troponin I (0.000-0.056) ng/mL Total Protein (6.4-8.2) g/dL Albumin (3.4-5.0) g/dL Globulin (2.6-4.0) g/dL Albumin/Globulin Ratio (0.9-1.6) Lipase (73-393) U/L Urine Color ORANGE Urine Appearance CLOUDY Urine pH 5.0 (5.0-8.0) Ur Specific [place] 1.020 (1.001-1.035) Urine Protein 100 H (NEGATIVE) mg/dL Urine Glucose (UA) >=1000 (NEGATIVE) mg/dL Urine Ketones NEGATIVE (NEGATIVE) mg/dL Urine Occult Blood SMALL H (NEGATIVE) Urine Nitrite POSITIVE H (NEGATIVE) Urine Bilirubin NEGATIVE (NEGATIVE) Urine Urobilinogen 2.0 H (<2.0) EU/dL Ur Leukocyte Esterase SMALL H (NEGATIVE) Urine RBC 2-5 (0-2/HPF) Urine WBC 125-150 (0-5/HPF) Ur Epithelial Cells RARE (NONE-FEW) Urine Bacteria 4+ H (NEGATIVE) Meds: Medications Generic Name Dose Route Start Last Admin Trade Name Freq PRN Reason Stop Dose Admin Sodium Chloride 1,000 mls @ 125 mls/hr 06/25/19 12:45 06/25/19 13:05 Normal Saline IV 125 mls/hr STAT CHANTE Administration Discontinued Medications Generic Name Dose Route Start Last Admin Trade Name Abdoulaye PRN Reason Stop Dose Admin Insulin Human Regular 10 unit 06/25/19 13:13 06/25/19 13:34 Novolin R IVPUSH 06/25/19 13:14 10 units ONETIME ONE Administration Protocol Departure - Departure Time of Disposition: 14:13 Disposition: Refer to Observation Condition: Poor Clinical Impression: Hyperglycemia, Noncompliance with medication regimen, Atypical chest pain UTI (urinary tract infection) Qualifiers: Urinary tract infection type: site unspecified Hematuria presence: without hematuria Qualified Code(s): N39.0 - Urinary tract infection, site not specified - Discharge Information Referrals: PCP,None [Primary Care Provider] - Forms: ED Department Discharge Sepsis Event Note - Evaluation Sepsis Screening Result: No Definite Risk - Focused Exam Vital Signs: Vital Signs Temp Pulse Resp BP Pulse Ox 06/25/19 13:35 91 16 116/89 92 L 06/25/19 12:29 96.8 F 99 16 129/95 H 94 L Date Exam was Performed: 06/25/19 Time Exam was Performed: 14:12 - My Orders Last 24 Hours: My Active Orders 06/25/19 12:23 EKG Documentation Completion [RC] STAT 06/25/19 12:45 Sodium Chloride 0.9% [Normal Saline] 1,000 ml IV STAT 06/25/19 13:00 CULTURE URINE [RM] Stat 06/25/19 14:11 cefTRIAXone [Rocephin in Dextrose,Iso-Osm 1 GM/50 ML] 1 gm Premix Bag 1 bag IV ONETIME - Assessment/Plan Last 24 Hours: My Active Orders 06/25/19 12:23 EKG Documentation Completion [RC] STAT 06/25/19 12:45 Sodium Chloride 0.9% [Normal Saline] 1,000 ml IV STAT 06/25/19 13:00 CULTURE URINE [RM] Stat 06/25/19 14:11 cefTRIAXone [Rocephin in Dextrose,Iso-Osm 1 GM/50 ML] 1 gm Premix Bag 1 bag IV ONETIME
[2019-06-25] MEDS ORDERED: Sodium Chloride 0.9% 1,000 ML IV SCH (12:45)
[2019-06-25 13:10] LABS: BLOOD UREA NITROGEN,BUN 13 mg/dL (7.0-18.0); CHLORIDE,CL 104 mmol/L (98-107); LIPASE 83 U/L (73-393); POTASSIUM,K 3.7 mmol/L (3.5-5.1); SODIUM,NA 139 mmol/L (136-145)
[2019-06-25 13:13] LABS: GLUCOSE RANDOM 514 mg/dL (74-106)
[2019-06-25] MEDS ORDERED: Insulin Regular, Human 100 Units/ML 10 ML Vial IVPUSH ONE ×2 (13:13→14:14)
--- NOTE | 2019-06-25 13:15 | CR ---
Chest: Portable view of the chest was obtained. Comparison: Prior chest x-ray of 12/08/17. Heart size and mediastinum are within normal limits for portable technique. Prior sternotomy is noted with CABG. Coronary artery stent is noted. Right-sided infusion port is seen with tip lying within the superior vena cava. Lungs are clear with no acute parenchymal change. Bony structures are grossly intact. Impression: 1. Findings as noted above. 2. Nothing acute is appreciated on portable chest x-ray. Diagnostic code #2 This report was dictated in [place] Standard Time
[2019-06-25] MEDS ORDERED: cefTRIAXone 1 GM in Premix Bag 1 BAG IV ONE (14:11)
[2019-06-25] MEDS ORDERED: oxyCODONE 5 MG Tab PO PRN (17:18)
[2019-06-25] MEDS ORDERED: Nitroglycerin 0.4 MG Tab.SL SL PRN (17:18)
[2019-06-25] MEDS ORDERED: ALPRAZolam 0.25 MG Tab PO PRN (17:18)
[2019-06-25] MEDS ORDERED: Furosemide 40 MG Tab PO PRN (17:18)
--- NOTE | 2019-06-25 17:50 | PCM.HP.2 ---
H&P History of Present Illness - General Date of Service: 06/25/19 Admit Problem/Dx: Admission Diagnosis/Problem Admission Diagnosis/Problem Atypical chest pain - History of Present Illness Initial Comments - Free Text/Narative: 69 y/o female with history of CAD s/p stent placements and diabetes who presented to the ED with complaint of dysuria for two days. Patient reports taking an oxycodone for her bladder pain today then afterwords having heart pain which she describes as substernal soreness. She denies any lightheadedness , shortness of breath or cough. Left Chest Pain Score (Numeric/FACES): 4 - Related Data Allergies/Adverse Reactions: Allergies Allergy/AdvReac Type Severity Reaction Status Date / Time Penicillins Allergy Severe Cannot Verified 06/25/19 16:00 Remember silver Allergy Rash Verified 06/25/19 16:00 [From [email or web address] AG Mesh] Home Medications: Home Meds ALPRAZolam [Xanax] 0.25 mg PO DAILY PRN 06/18/17 [History] Clopidogrel [Plavix] 75 mg PO DAILY 06/18/17 [History] Losartan [Cozaar] 25 mg PO BEDTIME 06/18/17 [History] Nitroglycerin [Nitrostat] 0.4 mg SL ASDIRECTED PRN 06/18/17 [History] atorvaSTATin [Lipitor] 80 mg PO BEDTIME 06/18/17 [History] oxyCODONE 5 mg PO Q4H PRN 06/18/17 [History] Amitriptyline [Elavil] 10 mg PO BEDTIME 10/19/17 [History] DULoxetine [Cymbalta] 60 mg PO DAILY 10/19/17 [History] Furosemide 40 mg PO DAILY PRN 10/19/17 [History] Gemfibrozil 600 mg PO BIDMEALS 10/19/17 [History] Insulin Degludec [Tresiba Flextouch U-200] 48 unit SQ WEEKLY 10/19/17 [History] Insulin Glargine,Hum.Rec.Anlog [Basaglar Kwikpen U-100] 50 units SQ BEDTIME [History] Levothyroxine [Synthroid] 50 mcg PO DAILY 04/04/19 [History] Past Medical History HEENT History: Reports: Impaired Vision Cardiovascular History: Reports: Angina, Bypass, Heart Murmur, High Cholesterol , Hypertension, ID, Stents Other Cardiovascular History: 'partial heart' Respiratory History: Reports: Sleep Apnea Other Respiratory History: pneumonia Gastrointestinal History: Reports: None Genitourinary History: Reports: UTI, Recurrent 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 stroke in the passed 3 years months. stroke affecting left arm. numbnessl to left arm. Psychiatric History: Reports: Anxiety, Depression Endocrine/Metabolic History: Reports: Diabetes, Type II, Hypothyroidism Hematologic History: Reports: Other (See Below) Other Hematologic History: Easy bruising, not on anticoagulant therapy Immunologic History: Reports: None Oncologic (Cancer) History: Reports: Lymphoma Dermatologic History: Reports: Eczema - Infectious Disease History Infectious Disease History: Reports: Chicken Pox, Measles, Mumps - Past Surgical History Head Surgeries/Procedures: Reports: None HEENT Surgical History: Reports: Adenoidectomy, Cataract Surgery, Tonsillectomy , Other (See Below) Other HEENT Surgeries/Procedures: Sinus surgery, blepheroplasty Other Cardiovascular Surgeries/Procedures: 3 bypasses, 10 stents Respiratory Surgical History: Reports: None GI Surgical History: Reports: Cholecystectomy Female Surgical History: Reports: Breast Biopsy, Hysterectomy Neurological Surgical History: Reports: None Musculoskeletal Surgical History: Reports: Carpal Tunnel Dermatological Surgical History: Reports: None Social & Family History - Family History Family Medical History: Noncontributory - Tobacco Use Smoking Status *Q: Never Smoker Second Hand Smoke Exposure: No - Caffeine Use Caffeine Use: Reports: Coffee, Soda Other Caffeine Use: 3 cups of coff a week and diet pepsi daily - Recreational Drug Use Recreational Drug Use: Yes Drug Use in Last 12 Months: Yes H&P Review of Systems - Review of Systems: Review Of Systems: Comprehensive ROS is negative, except as noted in HPI. Exam - Exam Exam: See Below - Vital Signs Vital Signs: Last Vital Signs Temp 36.3 C 06/25/19 15:16 Pulse 102 H 06/25/19 15:16 Resp 20 06/25/19 15:16 BP 158/93 H 06/25/19 15:16 Pulse Ox 96 06/25/19 15:16 Weight: 89.6 kg - Exam General: Alert, Oriented HEENT: Mucosa Moist & [place] Lungs: Clear to Auscultation, Normal Respiratory Effort Cardiovascular: Regular Rate, Regular Rhythm GI/Abdominal Exam: Normal Bowel Sounds, Soft, Non-Tender Extremities: Non-Tender, No Pedal Edema Skin: Warm, Dry, Intact - Patient Data Lab Results Last 24 hrs: Laboratory Results - last 24 hr 06/25/19 06/25/19 06/25/19 Range/Units 12:37 12:37 12:37 WBC 4.67 (4.0-11.0) K/uL RBC 3.89 L (4.30-5.90) M/uL Hgb 11.8 L (12.0-16.0) g/dL Hct 34.1 L (36.0-46.0) % MCV 87.7 (80.0-98.0) fL MCH 30.3 (27.0-32.0) pg MCHC 34.6 (31.0-37.0) g/dL RDW Std Deviation 47.4 (28.0-62.0) fl RDW Coeff of [place] 15 (11.0-15.0) % Plt Count 123 L (150-400) K/uL MPV 9.80 (7.40-12.00) fL Neut % (Auto) 39.2 L (48.0-80.0) % Lymph % (Auto) 48.4 H (16.0-40.0) % [place] % (Auto) 9.9 (0.0-15.0) % Eos % (Auto) 1.9 (0.0-7.0) % Baso % (Auto) 0.6 (0.0-1.5) % Neut # (Auto) 1.8 (1.4-5.7) K/uL Lymph # (Auto) 2.3 (0.6-2.4) K/uL [place] # (Auto) 0.5 (0.0-0.8) K/uL Eos # (Auto) 0.1 (0.0-0.7) K/uL Baso # (Auto) 0.0 (0.0-0.1) K/uL Nucleated RBC % 0.0 /100WBC Nucleated RBCs # 0 K/uL INR 0.98 Sodium 139 (136-145) mmol/L Potassium 3.7 (3.5-5.1) mmol/L Chloride 104 (98-107) mmol/L Carbon Dioxide 23.0 (21.0-32.0) mmol/L BUN 13 (7.0-18.0) mg/dL Creatinine 1.1 H (0.6-1.0) mg/dL Est Cr Clr Drug Dosing 48.26 mL/min Estimated GFR (MDRD) 49.5 ml/min Glucose 514 H* (74-106) mg/dL POC Glucose (60-110) mg/dL Calcium 7.6 L (8.5-10.1) mg/dL Total Bilirubin 0.8 (0.2-1.0) mg/dL AST 19 (15-37) IU/L ALT 19 (14-63) IU/L Alkaline Phosphatase 117 H (46-116) U/L Troponin I < 0.050 (0.000-0.056) ng/mL Total Protein 4.9 L (6.4-8.2) g/dL Albumin 2.2 L (3.4-5.0) g/dL Globulin 2.7 (2.6-4.0) g/dL Albumin/Globulin Ratio 0.8 L (0.9-1.6) Lipase 83 (73-393) U/L Urine Color Urine Appearance Urine pH (5.0-8.0) Ur Specific [place] (1.001-1.035) Urine Protein (NEGATIVE) mg/dL Urine Glucose (UA) (NEGATIVE) mg/dL Urine Ketones (NEGATIVE) mg/dL Urine Occult Blood (NEGATIVE) Urine Nitrite (NEGATIVE) Urine Bilirubin (NEGATIVE) Urine Urobilinogen (<2.0) EU/dL Ur Leukocyte Esterase (NEGATIVE) Urine RBC (0-2/HPF) Urine WBC (0-5/HPF) Ur Epithelial Cells (NONE-FEW) Urine Bacteria (NEGATIVE) 06/25/19 06/25/19 Range/Units 13:00 14:08 WBC (4.0-11.0) K/uL RBC (4.30-5.90) M/uL Hgb (12.0-16.0) g/dL Hct (36.0-46.0) % MCV (80.0-98.0) fL MCH (27.0-32.0) pg MCHC (31.0-37.0) g/dL RDW Std Deviation (28.0-62.0) fl RDW Coeff of [place] (11.0-15.0) % Plt Count (150-400) K/uL MPV (7.40-12.00) fL Neut % (Auto) (48.0-80.0) % Lymph % (Auto) (16.0-40.0) % [place] % (Auto) (0.0-15.0) % Eos % (Auto) (0.0-7.0) % Baso % (Auto) (0.0-1.5) % Neut # (Auto) (1.4-5.7) K/uL Lymph # (Auto) (0.6-2.4) K/uL [place] # (Auto) (0.0-0.8) K/uL Eos # (Auto) (0.0-0.7) K/uL Baso # (Auto) (0.0-0.1) K/uL Nucleated RBC % /100WBC Nucleated RBCs # K/uL INR Sodium (136-145) mmol/L Potassium (3.5-5.1) mmol/L Chloride (98-107) mmol/L Carbon Dioxide (21.0-32.0) mmol/L BUN (7.0-18.0) mg/dL Creatinine (0.6-1.0) mg/dL Est Cr Clr Drug Dosing mL/min Estimated GFR (MDRD) ml/min Glucose (74-106) mg/dL POC Glucose 372 H (60-110) mg/dL Calcium (8.5-10.1) mg/dL Total Bilirubin (0.2-1.0) mg/dL AST (15-37) IU/L ALT (14-63) IU/L Alkaline Phosphatase (46-116) U/L Troponin I (0.000-0.056) ng/mL Total Protein (6.4-8.2) g/dL Albumin (3.4-5.0) g/dL Globulin (2.6-4.0) g/dL Albumin/Globulin Ratio (0.9-1.6) Lipase (73-393) U/L Urine Color ORANGE Urine Appearance CLOUDY Urine pH 5.0 (5.0-8.0) Ur Specific [place] 1.020 (1.001-1.035) Urine Protein 100 H (NEGATIVE) mg/dL Urine Glucose (UA) >=1000 (NEGATIVE) mg/dL Urine Ketones NEGATIVE (NEGATIVE) mg/dL Urine Occult Blood SMALL H (NEGATIVE) Urine Nitrite POSITIVE H (NEGATIVE) Urine Bilirubin NEGATIVE (NEGATIVE) Urine Urobilinogen 2.0 H (<2.0) EU/dL Ur Leukocyte Esterase SMALL H (NEGATIVE) Urine RBC 2-5 (0-2/HPF) Urine WBC 125-150 (0-5/HPF) Ur Epithelial Cells RARE (NONE-FEW) Urine Bacteria 4+ H (NEGATIVE) Result Diagrams: 06/25/19 12:37 06/25/19 12:37 Sepsis Event Note - Evaluation Sepsis Screening Result: No Definite Risk - Focused Exam Vital Signs: Vital Signs Temp Pulse Resp BP Pulse Ox 06/25/19 15:16 36.3 C 102 H 20 158/93 H 96 06/25/19 14:51 96 18 130/86 95 06/25/19 14:31 96 20 124/87 96 06/25/19 13:35 91 16 116/89 92 L 06/25/19 12:29 36.0 C 99 16 129/95 H 94 L Date Exam was Performed: 06/25/19 Time Exam was Performed: 17:44 Problem List Initiated/Reviewed/Updated: Yes Orders Last 24hrs: Active Orders 24 hr Category Date Time Status Admission Status [Patient Status] [ADT] Routine ADT 06/25/19 14:37 Active Accu Check [Blood Glucose Check, Bedside] [RC] TIDMEALS Care 06/25/19 17:21 Active EKG Documentation Completion [RC] STAT Care 06/25/19 12:23 Active [place] [employer] Diet [DIET] Diet 06/25/19 Dinner Active CULTURE URINE [RM] Stat Lab 06/25/19 13:00 Received ALPRAZolam [Xanax] Med 06/25/19 17:18 Active 0.25 mg PO DAILY PRN Amitriptyline [Elavil] Med 06/25/19 21:00 Active 10 mg PO BEDTIME Clopidogrel [Plavix] Med 06/26/19 09:00 Active 75 mg PO DAILY DULoxetine [Cymbalta] Med 06/26/19 09:00 Active 60 mg PO DAILY Furosemide [Lasix] Med 06/25/19 17:18 Active 40 mg PO DAILY PRN Insulin Aspart [NovoLOG] Med 06/26/19 07:30 Active See Protocol SUBCUT TIDAC Insulin Glarg,Human.Rec.Analog [LantUS Solostar] Med 06/25/19 21:00 Active 50 units SUBCUT BEDTIME Levothyroxine [Synthroid] Med 06/26/19 07:00 Active 50 mcg PO DAILY@0700 Losartan [Cozaar] Med 06/25/19 21:00 Active 25 mg PO BEDTIME Nitroglycerin [Nitrostat] Med 06/25/19 17:18 Active 0.4 mg SL ASDIRECTED PRN Sodium Chloride 0.9% [Normal Saline] 1,000 ml Med 06/25/19 12:45 Active IV STAT atorvaSTATin [Lipitor] Med 06/25/19 21:00 Active 80 mg PO BEDTIME gemfibroziL [Lopid] Med 06/26/19 08:00 Active 600 mg PO BIDMEALS oxyCODONE Med 06/25/19 17:18 Active 5 mg PO Q4H PRN Medication Orders Alprazolam (Xanax) 0.25 mg PO DAILY PRN PRN Reason: Anxiety Amitriptyline HCl (Elavil) 10 mg PO BEDTIME CHANTE Atorvastatin Calcium (Lipitor) 80 mg PO BEDTIME CHANTE Clopidogrel Bisulfate (Plavix) 75 mg PO DAILY CHANTE Duloxetine HCl (Cymbalta) 60 mg PO DAILY CHANTE Furosemide (Lasix) 40 mg PO DAILY PRN PRN Reason: fluid retention Gemfibrozil (Lopid) 600 mg PO BIDMEALS CHANTE Sodium Chloride (Normal Saline) 1,000 mls @ 125 mls/hr IV STAT CHANTE Last Admin: 06/25/19 13:05 Dose: 125 mls/hr Insulin Aspart (Novolog) 0 unit SUBCUT TIDAC CHANTE; Protocol Insulin Glargine (Lantus Solostar) 50 units SUBCUT BEDTIME CHANTE Levothyroxine Sodium (Synthroid) 50 mcg PO DAILY@0700 CHANTE Losartan Potassium (Cozaar) 25 mg PO BEDTIME CHANTE Nitroglycerin (Nitrostat) 0.4 mg SL ASDIRECTED PRN PRN Reason: Chest Pain Oxycodone HCl (Oxycodone) 5 mg PO Q4H PRN PRN Reason: Pain Assessment/Plan Comment:: 69 yo female admitted for chest pain and UTI Chest pain: will trend troponins, resume home dose of cardiac medications UTI: on Rocephin, culture pending DM: patient's glucose is elevated, she has not been taking her lantus for past two days as she has not been feeling well. Will resume lantus and ssi.
[2019-06-25] MEDS ORDERED: Losartan 50 MG Tab PO SCH (21:00)
[2019-06-25] MEDS ORDERED: Amitriptyline 10 MG Tab PO SCH (21:00)
[2019-06-25] MEDS ORDERED: Insulin Glargine,Human Rec. Analog 100 Units/ML 3 ML Pen SUBCUT SCH (21:00)
[2019-06-25] MEDS ORDERED: atorvaSTATin 40 MG Tab PO SCH (21:00)
[2019-06-26] MEDS ORDERED: Levothyroxine 25 MCG Tab PO ONE (06:20)
[2019-06-26 06:33] LABS: CARBON DIOXIDE,CO2 28.1 mmol/L (21.0-32.0); POTASSIUM,K 3.8 mmol/L (3.5-5.1)
[2019-06-26] MEDS: Insulin Aspart 100 Units/ML 3 ML Pen SUBCUT SCH ×2 (06:38→12:36)
[2019-06-26] MEDS ORDERED: Gemfibrozil 600 MG Tab PO SCH (08:00)
[2019-06-26] MEDS ORDERED: Clopidogrel 75 MG Tab PO SCH (09:00)
[2019-06-26] MEDS ORDERED: DULoxetine 60 MG Cap PO SCH (09:00)
[2019-06-26] MEDS ORDERED: Magnesium Sulfate/Water 2 GM in Premix Bag 1 BAG IV ONE (09:07)
[2019-06-26] MEDS ORDERED: Fluconazole 150 MG Tab PO ONE (09:09)
[2019-06-26 12:12] VITALS: BP 106/61; PULSE 83
[2019-06-26] MEDS ORDERED: Acetaminophen 325 MG Tab PO PRN (12:47)
[2019-06-26] MEDS ORDERED: Miconazole 2% Vaginal Crm 45 GM Tube TOP SCH (13:30)
[2019-06-26] MEDS ORDERED: cefTRIAXone 1 GM in Sodium Chloride 0.9% 50 ML IV SCH (14:00)
--- NOTE | 2019-06-26 14:21 | PCM.DCSUM1 ---
Discharge Summary - Hospital Course Brief History: 69 y/o female with history of CAD s/p stent placements and diabetes who presented to the ED with complaint of dysuria for two days. Patient reports taking an oxycodone for her bladder pain today then afterwords having heart pain which she describes as substernal soreness. She denies any lightheadedness, shortness of breath or cough. Diagnosis: Stroke: No - Discharge Data Discharge Date: 06/26/19 Discharge Disposition: Home, Self-Care 01 Condition: Stable - Referral to Home Health Primary Care Physician: PCP None - Patient Instructions Diet: Heart Healthy Diet Activity: As Tolerated, No Strenuous Activities Showering/Bathing: May Shower Notify Provider of: Fever, Increased Pain, Swelling and Redness, Drainage, Nausea and/or Vomiting - Discharge Plan *PRESCRIPTION DRUG MONITORING PROGRAM REVIEWED*: Not Applicable *COPY OF PRESCRIPTION DRUG MONITORING REPORT IN PATIENT ROCKY: Not Applicable Prescriptions/Med Rec: Cephalexin [Keflex] 500 mg PO Q12H #14 capsule Fluconazole [Diflucan] 150 mg PO ONETIME #1 tab Home Medications: Home Meds ALPRAZolam [Xanax] 0.25 mg PO DAILY PRN 06/18/17 [History] Clopidogrel [Plavix] 75 mg PO DAILY 06/18/17 [History] Losartan [Cozaar] 25 mg PO BEDTIME 06/18/17 [History] Nitroglycerin [Nitrostat] 0.4 mg SL ASDIRECTED PRN 06/18/17 [History] atorvaSTATin [Lipitor] 80 mg PO BEDTIME 06/18/17 [History] oxyCODONE 5 mg PO Q4H PRN 06/18/17 [History] Amitriptyline [Elavil] 10 mg PO BEDTIME 10/19/17 [History] DULoxetine [Cymbalta] 60 mg PO DAILY 10/19/17 [History] Furosemide 40 mg PO DAILY PRN 10/19/17 [History] Gemfibrozil 600 mg PO BIDMEALS 10/19/17 [History] Insulin Degludec [Tresiba Flextouch U-200] 48 unit SQ WEEKLY 10/19/17 [History] Insulin Glargine,Hum.Rec.Anlog [Basaglar Kwikpen U-100] 50 units SQ BEDTIME [History] Levothyroxine [Synthroid] 50 mcg PO DAILY 04/04/19 [History] Cephalexin [Keflex] 500 mg PO Q12H #14 capsule 06/26/19 [Rx] Fluconazole [Diflucan] 150 mg PO ONETIME #1 tab 06/26/19 [Rx] Miconazole [Miconazole 2% Vaginal] 1 gm TOP BID tube 06/26/19 [Rx] Oxygen Therapy Mode: Room Air Patient Handouts: Urinary Tract Infection, Adult, Nonspecific Chest Pain, Easy- to-Read, Cephalexin tablets or capsules, Fluconazole tablets Referrals: Kerri Dash MD [Physician] - 07/05/19 4:00 pm Salvador Gonzáles MD [Ordering Only Provider] - 07/03/19 1:00 pm - Discharge Summary/Plan Comment DC Time >30 min.: No Discharge Summary/Plan Comment: Admitting Diagnoses: Chest pain UTI Discharge Diagnoses: Chest pain- resolved UTI Vaginal millie infection Pat was admitted with atypical chest pain, troponins trended due to CAD history. EKG remains stable, no ST elevation. She was noted to has UTI, treated with Rocephin. Today she is no longer having chest pain. She reports vaginal itching and burning. Vaginal exam revealed erythematous vaginal opening, with mild lacy patches. Affirm swab confirmed vaginal millie infection. Treated with PO diflucan along with topical Miconazole. She will be discharged today with 6 days of Keflex 500 BID for UTI and Miconazole for yeast infection along with another tab of Diflucan to be take in 2 days if symptoms persist. She will be discharge home today, follow up with PCP as well as Dr Dash for stress test. She is to return to [facility] or clinic if concerns should arise. - Patient Data Vitals - Most Recent: Last Vital Signs Temp 98.0 F 06/26/19 12:00 Pulse 83 06/26/19 12:00 Resp 18 06/26/19 12:00 BP 106/61 06/26/19 12:00 Pulse Ox 95 06/26/19 12:00 Weight - Most Recent: 89.6 kg I&O - Last 24 hours: Intake & Output 06/25/19 06/26/19 06/26/19 22:59 06:59 14:59 Intake Total 500 Output Total 1100 Balance -600 Lab Results - Last 24 hrs: Laboratory Results - last 24 hr 06/25/19 06/25/19 06/26/19 Range/Units 19:00 20:16 01:00 WBC (4.0-11.0) K/uL RBC (4.30-5.90) M/uL Hgb (12.0-16.0) g/dL Hct (36.0-46.0) % MCV (80.0-98.0) fL MCH (27.0-32.0) pg MCHC (31.0-37.0) g/dL RDW Std Deviation (28.0-62.0) fl RDW Coeff of Aranza (11.0-15.0) % Plt Count (150-400) K/uL MPV (7.40-12.00) fL Neut % (Auto) (48.0-80.0) % Lymph % (Auto) (16.0-40.0) % [place] % (Auto) (0.0-15.0) % Eos % (Auto) (0.0-7.0) % Baso % (Auto) (0.0-1.5) % Neut # (Auto) (1.4-5.7) K/uL Lymph # (Auto) (0.6-2.4) K/uL [place] # (Auto) (0.0-0.8) K/uL Eos # (Auto) (0.0-0.7) K/uL Baso # (Auto) (0.0-0.1) K/uL Nucleated RBC % /100WBC Nucleated RBCs # K/uL Sodium (136-145) mmol/L Potassium (3.5-5.1) mmol/L Chloride (98-107) mmol/L Carbon Dioxide (21.0-32.0) mmol/L BUN (7.0-18.0) mg/dL Creatinine (0.6-1.0) mg/dL Est Cr Clr Drug Dosing mL/min Estimated GFR (MDRD) ml/min Glucose (74-106) mg/dL POC Glucose 340 H (60-110) mg/dL Calcium (8.5-10.1) mg/dL Magnesium (1.8-2.4) mg/dL Troponin I < 0.050 < 0.050 (0.000-0.056) ng/mL Millie species DNA (NEGATIVE) Gardnerella DNA Probe (NEGATIVE) Trichomonas DNA Probe (NEGATIVE) 06/26/19 06/26/19 06/26/19 Range/Units 06:07 06:08 06:08 WBC 6.83 (4.0-11.0) K/uL RBC 4.66 (4.30-5.90) M/uL Hgb 14.1 (12.0-16.0) g/dL Hct 40.3 (36.0-46.0) % MCV 86.5 (80.0-98.0) fL MCH 30.3 (27.0-32.0) pg MCHC 35.0 (31.0-37.0) g/dL RDW Std Deviation 47.2 (28.0-62.0) fl RDW Coeff of Aranza 15 (11.0-15.0) % Plt Count 170 (150-400) K/uL MPV 10.00 (7.40-12.00) fL Neut % (Auto) 30.8 L (48.0-80.0) % Lymph % (Auto) 55.9 H (16.0-40.0) % [place] % (Auto) 10.2 (0.0-15.0) % Eos % (Auto) 2.2 (0.0-7.0) % Baso % (Auto) 0.9 (0.0-1.5) % Neut # (Auto) 2.1 (1.4-5.7) K/uL Lymph # (Auto) 3.8 H (0.6-2.4) K/uL [place] # (Auto) 0.7 (0.0-0.8) K/uL Eos # (Auto) 0.2 (0.0-0.7) K/uL Baso # (Auto) 0.1 (0.0-0.1) K/uL Nucleated RBC % 0.0 /100WBC Nucleated RBCs # 0 K/uL Sodium 139 (136-145) mmol/L Potassium 3.8 (3.5-5.1) mmol/L Chloride 104 (98-107) mmol/L Carbon Dioxide 28.1 (21.0-32.0) mmol/L BUN 15 (7.0-18.0) mg/dL Creatinine 1.0 (0.6-1.0) mg/dL Est Cr Clr Drug Dosing 53.09 mL/min Estimated GFR (MDRD) 55.3 ml/min Glucose 247 H (74-106) mg/dL POC Glucose 204 H (60-110) mg/dL Calcium 8.4 L (8.5-10.1) mg/dL Magnesium (1.8-2.4) mg/dL Troponin I (0.000-0.056) ng/mL Millie species DNA (NEGATIVE) Gardnerella DNA Probe (NEGATIVE) Trichomonas DNA Probe (NEGATIVE) 06/26/19 06/26/19 06/26/19 Range/Units 06:08 11:00 12:09 WBC (4.0-11.0) K/uL RBC (4.30-5.90) M/uL Hgb (12.0-16.0) g/dL Hct (36.0-46.0) % MCV (80.0-98.0) fL MCH (27.0-32.0) pg MCHC (31.0-37.0) g/dL RDW Std Deviation (28.0-62.0) fl RDW Coeff of Aranza (11.0-15.0) % Plt Count (150-400) K/uL MPV (7.40-12.00) fL Neut % (Auto) (48.0-80.0) % Lymph % (Auto) (16.0-40.0) % [place] % (Auto) (0.0-15.0) % Eos % (Auto) (0.0-7.0) % Baso % (Auto) (0.0-1.5) % Neut # (Auto) (1.4-5.7) K/uL Lymph # (Auto) (0.6-2.4) K/uL [place] # (Auto) (0.0-0.8) K/uL Eos # (Auto) (0.0-0.7) K/uL Baso # (Auto) (0.0-0.1) K/uL Nucleated RBC % /100WBC Nucleated RBCs # K/uL Sodium (136-145) mmol/L Potassium (3.5-5.1) mmol/L Chloride (98-107) mmol/L Carbon Dioxide (21.0-32.0) mmol/L BUN (7.0-18.0) mg/dL Creatinine (0.6-1.0) mg/dL Est Cr Clr Drug Dosing mL/min Estimated GFR (MDRD) ml/min Glucose (74-106) mg/dL POC Glucose 299 H (60-110) mg/dL Calcium (8.5-10.1) mg/dL Magnesium 1.7 L (1.8-2.4) mg/dL Troponin I (0.000-0.056) ng/mL Millie species DNA POSITIVE H (NEGATIVE) Gardnerella DNA Probe NEGATIVE (NEGATIVE) Trichomonas DNA Probe NEGATIVE (NEGATIVE) Med Orders - Current: Current Medications Acetaminophen (Tylenol) 650 mg PO Q4H PRN PRN Reason: Pain Last Admin: 06/26/19 13:00 Dose: 650 mg Alprazolam (Xanax) 0.25 mg PO DAILY PRN PRN Reason: Anxiety Last Admin: 06/25/19 22:15 Dose: 0.25 mg Amitriptyline HCl (Elavil) 10 mg PO BEDTIME [facility] Last Admin: 06/25/19 20:20 Dose: 10 mg Atorvastatin Calcium (Lipitor) 80 mg PO BEDTIME [facility] Last Admin: 06/25/19 20:20 Dose: 80 mg Clopidogrel Bisulfate (Plavix) 75 mg PO DAILY [facility] Last Admin: 06/26/19 09:30 Dose: 75 mg Duloxetine HCl (Cymbalta) 60 mg PO DAILY [facility] Last Admin: 06/26/19 09:30 Dose: 60 mg Furosemide (Lasix) 40 mg PO DAILY PRN PRN Reason: fluid retention Gemfibrozil (Lopid) 600 mg PO BIDMEALS [facility] Last Admin: 06/26/19 08:15 Dose: 600 mg Ceftriaxone Sodium 1 gm/ (Sodium Chloride) 50 mls @ 100 mls/hr IV Q24H [facility] Insulin Aspart (Novolog) 0 unit SUBCUT TIDAC [facility]; Protocol Last Admin: 06/26/19 12:36 Dose: 6 units Insulin Glargine (Lantus Solostar) 50 units SUBCUT BEDTIME [facility] Last Admin: 06/25/19 20:19 Dose: 50 units Levothyroxine Sodium (Synthroid) 50 mcg PO DAILY@0700 [facility] Losartan Potassium (Cozaar) 25 mg PO BEDTIME [facility] Last Admin: 06/25/19 20:21 Dose: 25 mg Miconazole (Miconazole 2% Vaginal) 1 gm TOP BID [facility] Last Admin: 06/26/19 14:03 Dose: 1 applicful Nitroglycerin (Nitrostat) 0.4 mg SL ASDIRECTED PRN PRN Reason: Chest Pain Oxycodone HCl (Oxycodone) 5 mg PO Q4H PRN PRN Reason: Pain Discontinued Medications Fluconazole (Diflucan) 150 mg PO ONETIME ONE Stop: 06/26/19 09:10 Last Admin: 06/26/19 09:36 Dose: 150 mg Sodium Chloride (Normal Saline) 1,000 mls @ 125 mls/hr IV STAT [facility] Last Admin: 06/25/19 13:05 Dose: 125 mls/hr Ceftriaxone Sodium/Dextrose 1 (gm/ Premix) 50 mls @ 100 mls/hr IV ONETIME ONE Stop: 06/25/19 14:40 Last Admin: 06/25/19 14:32 Dose: 100 mls/hr Magnesium Sulfate 2 gm/ Premix 50 mls @ 50 mls/hr IV ONETIME ONE Stop: 06/26/19 10:06 Last Admin: 06/26/19 09:31 Dose: 50 mls/hr Insulin Human Regular (Novolin R) 10 unit IVPUSH ONETIME ONE; Protocol Stop: 06/25/19 13:14 Last Admin: 06/25/19 13:34 Dose: 10 units Insulin Human Regular (Novolin R) 5 unit IVPUSH ONETIME ONE; Protocol Stop: 06/25/19 14:15 Last Admin: 06/25/19 14:31 Dose: 5 unit Levothyroxine Sodium (Levothyroxine) 50 mcg PO ONETIME ONE Stop: 06/26/19 06:21 Last Admin: 06/26/19 06:37 Dose: 50 mcg
[2019-06-27] MEDS ORDERED: Levothyroxine 50 MCG Tab PO SCH (07:00)
== END 2019-06-26 15:45 | disposition home or self-care (01) ==
LOC: MW.ED 12:18 → MW.MS 14:32
PROVIDERS: ADMIT Internal Medicine; ATTEND Internal Medicine
DX: R07.89 Other chest pain (principal); N39.0 Urinary tract infection, site not specified; I25.10 Atherosclerotic heart disease of native coronary artery without angina pectoris; B37.3 Candidiasis of vulva and vagina; E11.9 Type 2 diabetes mellitus without complications; E78.00 Pure hypercholesterolemia, unspecified; I10 Essential (primary) hypertension; E03.9 Hypothyroidism, unspecified; F41.9 Anxiety disorder, unspecified; F32.9 Major depressive disorder, single episode, unspecified; Z95.5 Presence of coronary angioplasty implant and graft; Z79.899 Other long term (current) drug therapy; Z79.02 Long term (current) use of antithrombotics/antiplatelets; Z79.4 Long term (current) use of insulin; Z88.0 Allergy status to penicillin; Z91.048 Other nonmedicinal substance allergy status
CPT/HCPCS: 36415; 71045; 80048; 80053; 81001; 82962; 83690; 83735; 84484; 85025; 85610; 87086; 87088; 87186; 87480; 87510; 87660; 93005; A9270; J0696; J1642; J1815; J3475; J7030; J7050; 96361; 96365; 96366; 96367; 99283; 99285-25; G0378

== ENCOUNTER 2019-06-28 18:21 | Emergency (ER) | payer MEDICARE, OTHER ==
[2019-06-28] MEDS ORDERED: Sodium Chloride 0.9% 1,000 ML IV SCH (19:00)
--- NOTE | 2019-06-28 19:25 | EDM.PDOC ---
ED HPI GENERAL MEDICAL PROBLEM - General Chief Complaint: Genitourinary Problem Stated Complaint: STOOL BLEEDING Time Seen by Provider: 06/28/19 18:46 - History of Present Illness INITIAL COMMENTS - FREE TEXT/NARRATIVE: HISTORY AND PHYSICAL: History of present illness: Patient is a 69-year-old white female who was recently hospitalized for urinary tract infection and candidiasis who presents with concern of blood from an unknown source that she noted upon blowing her pants to go to the bathroom when queried she remains unclear whether this came from her vagina her urine or her rectum there is been no fever chills she did have sharp right-sided abdominal pain that resolved she denies trauma chest pain shortness of breath bleeding diathesis or other concern Review of systems: As per history of present illness and below otherwise all systems reviewed and negative. Past medical history: As per history of present illness and as reviewed below otherwise noncontributory. Surgical history: As per history of present illness and as reviewed below otherwise noncontributory. Social history: No reported history of drug or alcohol abuse. Family history: As per history of present illness and as reviewed below otherwise noncontributory. Physical exam: HEENT: Atraumatic, normocephalic, pupils reactive, negative for conjunctival pallor or scleral icterus, mucous membranes moist, throat clear, neck supple, nontender, trachea midline. Lungs: Clear to auscultation, breath sounds equal bilaterally, chest nontender. Heart: S1S2, regular, negative for clicks, rubs, or JVD. Abdomen: Soft, nondistended, nontender. Negative for masses or hepatosplenomegaly. Negative for costovertebral tenderness. Pelvis: Stable nontender. Genitourinary: Labial abrasion noted with dried blood no active bleeding otherwise grossly unremarkable Rectal: Grossly unremarkable no active bleeding Extremities: Atraumatic, negative for cords or calf pain. Neurovascular unremarkable. Neuro: Awake, alert, oriented. Cranial nerves II through XII unremarkable. Cerebellum unremarkable. Motor and sensory unremarkable throughout. Exam nonfocal. Diagnostics: CBC CMP PT/INR CT abdomen pelvis UA Therapeutics: Saline at 125 cc an hour Impression: 1 medical screen exam #2 history of recent UTI #3 history of candidiasis Definitive disposition and diagnosis as appropriate pending reevaluation and review of above. Pelvic Pain Score (Numeric/FACES): 5 - Related Data Allergies Allergy/AdvReac Type Severity Reaction Status Date / Time Penicillins Allergy Severe Cannot Verified 06/28/19 18:55 Remember silver Allergy Rash Verified 06/28/19 18:55 [From Tegaderm AG Mesh] Home Meds: Home Meds ALPRAZolam [Xanax] 0.25 mg PO DAILY PRN 06/18/17 [History] Clopidogrel [Plavix] 75 mg PO DAILY 06/18/17 [History] Losartan [Cozaar] 25 mg PO BEDTIME 06/18/17 [History] Nitroglycerin [Nitrostat] 0.4 mg SL ASDIRECTED PRN 06/18/17 [History] atorvaSTATin [Lipitor] 80 mg PO BEDTIME 06/18/17 [History] oxyCODONE 5 mg PO Q4H PRN 06/18/17 [History] Amitriptyline [Elavil] 10 mg PO BEDTIME 10/19/17 [History] DULoxetine [Cymbalta] 60 mg PO DAILY 10/19/17 [History] Furosemide 40 mg PO DAILY PRN 10/19/17 [History] Gemfibrozil 600 mg PO BIDMEALS 10/19/17 [History] Insulin Degludec [Tresiba Flextouch U-200] 48 unit SQ WEEKLY 10/19/17 [History] Insulin Glargine,Hum.Rec.Anlog [Basaglar Kwikpen U-100] 50 units SQ BEDTIME [History] Levothyroxine [Synthroid] 50 mcg PO DAILY 04/04/19 [History] Cephalexin [Keflex] 500 mg PO Q12H #14 capsule 06/26/19 [Rx] Fluconazole [Diflucan] 150 mg PO ONETIME #1 tab 06/26/19 [Rx] Miconazole [Miconazole 2% Vaginal] 1 gm TOP BID tube 06/26/19 [Rx] Past Medical History HEENT History: Reports: Impaired Vision Cardiovascular History: Reports: Angina, Bypass, Heart Murmur, High Cholesterol , Hypertension, [place], Stents Other Cardiovascular History: 'partial heart' Respiratory History: Reports: Sleep Apnea Other Respiratory History: pneumonia Gastrointestinal History: Reports: None Genitourinary History: Reports: UTI, Recurrent [employer] History: Reports: Musculoskeletal History: Reports: Fracture Other Musculoskeletal History: Lower back fracture, Ribs Neurological History: Reports: Concussion, CVA, Headaches, Chronic, Head Trauma , Vertigo, Other (See Below) Other Neuro History: brainstem and spinal cord lesions. stroke in the passed 3 years months. stroke affecting left arm. numbnessl to left arm. Psychiatric History: Reports: Anxiety, Depression Endocrine/Metabolic History: Reports: Diabetes, Type II, Hypothyroidism Hematologic History: Reports: Other (See Below) Other Hematologic History: Easy bruising, not on anticoagulant therapy Immunologic History: Reports: None Oncologic (Cancer) History: Reports: Lymphoma Dermatologic History: Reports: Eczema - Infectious Disease History Infectious Disease History: Reports: Chicken Pox, Measles, Mumps - Past Surgical History Head Surgeries/Procedures: Reports: None HEENT Surgical History: Reports: Adenoidectomy, Cataract Surgery, Tonsillectomy , Other (See Below) Other HEENT Surgeries/Procedures: Sinus surgery, blepheroplasty Other Cardiovascular Surgeries/Procedures: 3 bypasses, 10 stents Respiratory Surgical History: Reports: None GI Surgical History: Reports: Cholecystectomy Female Surgical History: Reports: Breast Biopsy, Hysterectomy Neurological Surgical History: Reports: None Musculoskeletal Surgical History: Reports: Carpal Tunnel Dermatological Surgical History: Reports: None Social & Family History - Family History Family Medical History: Noncontributory - Tobacco Use Smoking Status *Q: Never Smoker - Caffeine Use Caffeine Use: Reports: Coffee, Soda Other Caffeine Use: 3 cups of coff a week and diet pepsi daily - Recreational Drug Use Recreational Drug Use: No ED ROS GENERAL - Review of Systems Review Of Systems: Comprehensive ROS is negative, except as noted in HPI. ED EXAM, GENERAL - Physical Exam Exam: See Below (Dictation) Course - Vital Signs Last Recorded V/S: Last Vital Signs Temp 36.6 C 06/28/19 18:55 Pulse 96 06/28/19 18:55 Resp 20 06/28/19 18:55 BP 137/83 06/28/19 18:55 Pulse Ox 95 06/28/19 18:55 - Orders/Labs/Meds Orders: Active Orders 24 hr Category Date Time Status COMPREHENSIVE METABOLIC PN,CMP [CHEM] Stat Lab 06/28/19 20:00 Received CULTURE URINE [RM] Stat Lab 06/28/19 18:55 Received Sodium Chloride 0.9% [Normal Saline] 1,000 ml Med 06/28/19 19:00 Active IV STAT Medication Orders Sodium Chloride (Normal Saline) 1,000 mls @ 125 mls/hr IV STAT [facility] Last Admin: 06/28/19 20:01 Dose: 125 mls/hr Labs: Laboratory Tests 06/28/19 06/28/19 06/28/19 Range/Units 18:55 20:00 20:00 WBC 6.50 (4.0-11.0) K/uL RBC 4.62 (4.30-5.90) M/uL Hgb 14.3 (12.0-16.0) g/dL Hct 40.2 (36.0-46.0) % MCV 87.0 (80.0-98.0) fL MCH 31.0 (27.0-32.0) pg MCHC 35.6 (31.0-37.0) g/dL RDW Std Deviation 47.6 (28.0-62.0) fl RDW Coeff of Aranza 15 (11.0-15.0) % Plt Count 167 (150-400) K/uL MPV 9.80 (7.40-12.00) fL Neut % (Auto) 31.7 L (48.0-80.0) % Lymph % (Auto) 55.7 H (16.0-40.0) % [place] % (Auto) 10.3 (0.0-15.0) % Eos % (Auto) 1.8 (0.0-7.0) % Baso % (Auto) 0.5 (0.0-1.5) % Neut # (Auto) 2.1 (1.4-5.7) K/uL Lymph # (Auto) 3.6 H (0.6-2.4) K/uL [place] # (Auto) 0.7 (0.0-0.8) K/uL Eos # (Auto) 0.1 (0.0-0.7) K/uL Baso # (Auto) 0.0 (0.0-0.1) K/uL Nucleated RBC % 0.0 /100WBC Nucleated RBCs # 0 K/uL INR 0.96 Urine Color YELLOW Urine Appearance CLEAR Urine pH 5.5 (5.0-8.0) Ur Specific [place] 1.025 (1.001-1.035) Urine Protein NEGATIVE (NEGATIVE) mg/dL Urine Glucose (UA) 500 H (NEGATIVE) mg/dL Urine Ketones NEGATIVE (NEGATIVE) mg/dL Urine Occult Blood LARGE H (NEGATIVE) Urine Nitrite NEGATIVE (NEGATIVE) Urine Bilirubin NEGATIVE (NEGATIVE) Urine Urobilinogen 0.2 (<2.0) EU/dL Ur Leukocyte Esterase SMALL H (NEGATIVE) Urine RBC 1-3 (0-2/HPF) Urine WBC 4-6 (0-5/HPF) Ur Epithelial Cells OCCASIONAL (NONE-FEW) Amorphous Sediment FEW (NEGATIVE) Urine Bacteria FEW (NEGATIVE) Urine Mucus FEW (NONE-MOD) Meds: Medications Generic Name Dose Route Start Last Admin Trade Name Freq PRN Reason Stop Dose Admin Sodium Chloride 1,000 mls @ 125 mls/hr 06/28/19 19:00 06/28/19 20:01 Normal Saline IV 125 mls/hr STAT [facility] Administration Departure - Departure Time of Disposition: 20:26 Disposition: Home, Self-Care 01 Condition: Good Clinical Impression: Encounter for medical screening examination, History of UTI, Labial abrasion - Discharge Information Referrals: Salvador Gonzáles MD [Primary Care Provider] - Forms: ED Department Discharge Additional Instructions: The following information is given to patients seen in the emergency department who are being discharged to home. This information is to outline your options for follow-up care. We provide all patients seen in our emergency department with a follow-up referral. The need for follow-up, as well as the timing and circumstances, are variable depending upon the specifics of your emergency department visit. If you don't have a primary care physician on staff, we will provide you with a referral. We always advise you to contact your personal physician following an emergency department visit to inform them of the circumstance of the visit and for follow-up with them and/or the need for any referrals to a consulting specialist. The emergency department will also refer you to a specialist when appropriate. This referral assures that you have the opportunity for followup care with a specialist. All of these measure are taken in an effort to provide you with optimal care, which includes your followup. Under all circumstances we always encourage you to contact your private physician who remains a resource for coordinating your care. When calling for followup care, please make the office aware that this follow-up is from your recent emergency room visit. If for any reason you are refused follow-up, please contact the [facility] emergency department at and asked to speak to the emergency department charge nurse. Bacitracin to labia as discussed continue current medications return as needed as discussed Sepsis Event Note - Evaluation Sepsis Screening Result: No Definite Risk - Focused Exam Vital Signs: Vital Signs Temp Pulse Resp BP Pulse Ox 06/28/19 18:55 36.6 C 96 20 137/83 95 Date Exam was Performed: 06/28/19 Time Exam was Performed: 20:25 - My Orders Last 24 Hours: My Active Orders 06/28/19 18:55 CULTURE URINE [RM] Stat 06/28/19 19:00 Sodium Chloride 0.9% [Normal Saline] 1,000 ml IV STAT 06/28/19 20:00 COMPREHENSIVE METABOLIC PN,CMP [CHEM] Stat - Assessment/Plan Last 24 Hours: My Active Orders 06/28/19 18:55 CULTURE URINE [RM] Stat 06/28/19 19:00 Sodium Chloride 0.9% [Normal Saline] 1,000 ml IV STAT 06/28/19 20:00 COMPREHENSIVE METABOLIC PN,CMP [CHEM] Stat
--- NOTE | 2019-06-28 20:01 | CT ---
INDICATION: Abdominal pain. TECHNIQUE: CT abdomen and pelvis without contrast. COMPARISON: None FINDINGS: Lower chest: Normal heart size without pericardial effusion. Coronary artery calcifications. No pleural effusion. Liver: Unremarkable. Spleen: Unremarkable. Pancreas: Unremarkable. Gallbladder and bile ducts: Status post cholecystectomy. No biliary ductal dilatation. Kidneys: No kidney or ureteral stones and no hydronephrosis. No renal lesions within limitations of a noncontrast exam. Adrenal glands: Unremarkable. GI tract: Small hiatal hernia. Normal caliber small and large bowel without evidence of obstruction or inflammation. Appendix is not visualized but there are no secondary signs of acute appendicitis. Vascular structures: Severe atherosclerotic calcifications of the abdominal aorta and branches. No evidence of aneurysm. Lymph nodes: No lymphadenopathy. Miscellaneous: No free air or ascites. Pelvic Organs: The uterus is atrophic or surgically absent. Bones: The bones are demineralized. There is a moderate wedge deformity of L1 of uncertain chronicity. Degenerative changes affect the lower thoracic and lumbar spine. There is rightward curvature of the lumbar spine. No suspicious bone lesion. IMPRESSION: 1. No urinary tract stones, hydronephrosis or bowel obstruction. 2. Compression fracture of the L1 vertebral body of uncertain chronicity. 3. Small hiatal hernia. Please note that all CT scans at this facility use dose modulation, iterative reconstruction, and/or weight-based dosing when appropriate to reduce radiation dose to as low as reasonably achievable. Dictated by Cleopatra Gallagher MD @ Jun 28 2019 7:59PM Signed by Dr. Cleopatra Gallagher @ Jun 28 2019 7:59PM
[2019-06-28 20:43] VITALS: BP 125/85; PULSE 78
[2019-06-28 21:29] LABS: BLOOD UREA NITROGEN,BUN 15 mg/dL (7.0-18.0); CARBON DIOXIDE,CO2 22.7 mmol/L (21.0-32.0); CHLORIDE,CL 104 mmol/L (98-107); GLUCOSE RANDOM 220 mg/dL (74-106); POTASSIUM,K 3.8 mmol/L (3.5-5.1); SODIUM,NA 140 mmol/L (136-145)
== END 2019-06-28 20:43 | disposition home or self-care (01) ==
LOC: MW.ED 18:21
DX: S30.814A Abrasion of vagina and vulva, initial encounter (principal); I69.998 Other sequelae following unspecified cerebrovascular disease; I25.2 Old myocardial infarction; I10 Essential (primary) hypertension; E03.9 Hypothyroidism, unspecified; E11.9 Type 2 diabetes mellitus without complications; E78.00 Pure hypercholesterolemia, unspecified; F41.9 Anxiety disorder, unspecified; F32.9 Major depressive disorder, single episode, unspecified; Z79.02 Long term (current) use of antithrombotics/antiplatelets; Z79.4 Long term (current) use of insulin; Z79.890 Hormone replacement therapy; Z79.899 Other long term (current) drug therapy; Z87.42 Personal history of other diseases of the female genital tract; Z87.440 Personal history of urinary (tract) infections; Z88.0 Allergy status to penicillin; Z88.8 Allergy status to other drugs, medicaments and biological substances; Z95.1 Presence of aortocoronary bypass graft; Z95.5 Presence of coronary angioplasty implant and graft; X58.XXXA Exposure to other specified factors, initial encounter
CPT/HCPCS: 74176; 80053; 81001; 85025; 85610; 87086; 96360; 99284; J1642; J7030

== ENCOUNTER 2020-10-03 22:33 | Inpatient (IN) | payer MEDICARE, OTHER ==
[2020-10-03] MEDS ORDERED: Sodium Chloride 0.9% 1,000 ML IV ONE ×2 (23:06→23:10)
[2020-10-03] MEDS ORDERED: Sodium Chloride 0.9% 2.5 ML Syringe FLUSH PRN (23:06)
[2020-10-03] MEDS ORDERED: Sodium Chloride 0.9% 10 ML Syringe FLUSH PRN (23:06)
[2020-10-03] MEDS ORDERED: cefTRIAXone 1 GM in Premix Bag 1 BAG IV ONE (23:10)
[2020-10-03 23:29] LABS: CARBON DIOXIDE,CO2 23.9 mmol/L (21.0-32.0)
--- NOTE | 2020-10-03 23:33 | CR ---
INDICATION: Fever TECHNIQUE: Chest radiograph 1 view COMPARISON: 06/25/2019 FINDINGS: Mediastinum: Previous median sternotomy and coronary artery bypass grafting (CABG) noted. Right Port-A-Cath is noted without change. The heart silhouette is normal in size and morphology. Lung: Both lungs are unremarkable in appearance. No sign of pleural effusion seen. No pneumothorax is identified. Bone and Soft tissue: Severe diffuse osteopenia seen. IMPRESSION: 1. No acute cardiopulmonary disease is seen. Dictated by Ming Squires MD @ 10/03/2020 11:32:12 PM Dictated by: Ming Squires MD @ 10/03/2020 23:32:17 (Electronically Signed)
--- NOTE | 2020-10-03 23:39 | CT ---
INDICATION: Head injury from fall times three today. Patient on blood thinners TECHNIQUE: CT Head without i.v. contrast. Coronal and sagittal reformats were obtained. COMPARISON: MRI 04/09/2020 FINDINGS: CSF space: Unremarkable for age. Brain: Chronic small linear infarct is seen in the right cerebellum hemisphere. No mass-effect or midline shift is seen. Mild diffuse cortical atrophy is noted. Calvarium: The visualized paranasal sinuses are well aerated. The mastoid air cells are clear. The patient is status post bilateral cataract removal. The calvarium is unremarkable in appearance with no fractures identified. IMPRESSION: 1. No evidence of acute infarction, intracranial hemorrhage, or mass-effect seen. Dictated by Ming Squires MD @ 10/03/2020 11:34:28 PM Please note that all CT scans at this facility use dose modulation, iterative reconstruction, and/or weight-based dosing when appropriate to reduce radiation dose to as low as reasonably achievable. Dictated by: Ming Squires MD @ 10/03/2020 23:37:15 (Electronically Signed)
[2020-10-03 23:50] LABS: CORONAVIRUS COVID-19 NAA NEGATIVE (NEGATIVE); INFLUENZA A NAA NEGATIVE (NEGATIVE); INFLUENZA B NAA NEGATIVE (NEGATIVE)
[2020-10-04] MEDS ORDERED: Sodium Chloride 0.9% 1,000 ML IV ONE (00:58)
--- NOTE | 2020-10-04 00:58 | EDM.PDOC ---
ED HPI GENERAL MEDICAL PROBLEM - General Chief Complaint: General Stated Complaint: VOMITING Time Seen by Provider: 10/03/20 22:45 - History of Present Illness INITIAL COMMENTS - FREE TEXT/NARRATIVE: HISTORY AND PHYSICAL: History of present illness: This is a 70-year-old female with history significant for low blood pressure, mini strokes, on Plavix, CHF, CAD, UTIs, who presents ER today secondary to generalized weakness x1 day with 3 falls throughout the course of the day. Patient reports she normally walks with her walker and is able to walk outdoors. Patient reports that she tried to go outside today and felt too weak and fell down and landed on her bottom. Patient does not recall hitting her head and denies any loss of consciousness. Patient denies any chest pain or shortness of breath. Patient has a recent vomiting or diarrhea. Patient reports that she has been feeling nauseous with decreased p.o. intake. Patient denies any abdominal pain. Patient has any dysuria, frequency, urgency or change in her u rinary output. Patient denies any change in bowel habits. Patient denies any melena or bright red blood per rectum. Patient has any recent cough cold or rhinorrhea. Patient denies any coronavirus concerns or exposures. Patient reports that she has been compliant with her medications. Patient does have a history of low thyroid in the past. Review of systems: As per history of present illness and below otherwise all systems reviewed and negative. Past medical history: As per history of present illness and as reviewed below otherwise noncontributory. Surgical history: As per history of present illness and as reviewed below otherwise noncontributory. Social history: No reported history of drug abuse. Family history: As per history of present illness and as reviewed below otherwise noncontributory. Physical exam: This patient was seen and evaluated during the 2019 SARS-CoV-2 novel coronavirus pandemic period. Community viral transmission is ongoing at time of this encounter and the emergency department is operating under pandemic response procedures. Constitutional: Patient is oriented to person, place, and time. Appears well- developed and well-nourished. No distress. HEENT: Moist mucous membranes Head: Normocephalic and atraumatic Eyes: Right eye exhibits no discharge. Left eye exhibits no discharge. No scleral icterus Neck: Normal range of motion. No tracheal deviation present. Cardiovascular: Normal rate and regular rhythm. Pulmonary: Effort normal, no respiratory distress. Abdominal: No distention Musculoskeletal: Normal range of motion Neurologic: Alert and oriented to person, place and time. Skin: [place], warm and dry. Psychiatric: Normal mood and affect. Behavior is normal. Judgment and thought content normal. Nursing note and vital signs have been reviewed Patient has no C-spine T-spine or L-spine tenderness to palpation. Patient has no left upper or right upper quadrant tenderness to palpation. Patient has no crepitus to palpation to the anterior chest wall. Patient is neurologically intact. Patient does not present with any signs or or symptoms that would be consistent with acute intracranial, intra-abdominal, intrathoracic, or long bone injury. All long bones have been palpated and range of motion been performed and there is no evidence of any acute pathology. Diagnostics: CT of the head reveals no acute pathology or bleed. EKG: As interpreted by ER physician: Shonna: Nonspecific ST-T wave abnormalities Normal axis No evidence of ST elevation MS Sinus tachycardia with a heart rate of 115 Chest Xray: Normal cardiac silhouette No infiltrates or effusions identified. No PTX No evidence of acute bony fracture. As interpreted by ER MD: Shonna Urinalysis reveals too numerous to count WBCs with large number of bacteria on microscopic. Remainder of the patient's labs reviewed. Therapeutics: NSS x1 L; patient required treatment with intravenous normal saline solution secondary to clinical evidence of dehydration as manifested by history and physical examination. Rocephin 1 g IV Assessment and plan: This is a 70-year-old female who presents ER today with generalized weakness x1 day with 3 falls throughout the course of the day. Patient's work-up in the ER reveals no significant injury identified for falls. Patient has CT scan of her head which revealed no evidence of bleed. Patient's labs do reveal that she is septic with a elevated temperature, tachycardia, and urine as a source of infection. Patient likely has pyelonephritis and will need to be admitted for IV antibiotics and IV hydration. Patient has been given 1 g of IV Rocephin as well as 3 L of NSS wide open the ED. Case discussed with Dr. Walsh who agrees with the current plan for admission for IV hydration and IV antibiotics and management of likely sepsis. Blood cultures have been sent and are pending Critical Care: The high probability of sudden, clinically significant deterioration in the patient's condition required the highest level of my preparedness to intervene urgently. The services I provided to this patient were to treat and/or prevent clinically significant deterioration. Services included the following: chart data review, reviewing nursing notes and/or old charts, documentation time, remediation consultant collaboration regarding findings and treatment options, medication orders and management, direct patient care, vital sign assessments and ordering, interpreting and reviewing diagnostic studies/lab tests. Aggregate critical care time includes only time during which I was engaged inwork directly related to the patient's care, as described above, whether at the bedside or elsewhere in the Emergency Department. It did not include time spent performing other reported procedures or the services of residents, students, nurses or physician assistants. Critical Care Time: 35 minutes Definitive disposition and diagnosis as appropriate pending reevaluation and review of above. Abdomen Pain Score (Numeric/FACES): 3 - Related Data Allergies Allergy/AdvReac Type Severity Reaction Status Date / Time Penicillins Allergy Severe Cannot Verified 10/03/20 22:41 Remember silver Allergy Rash Verified 10/03/20 22:41 [From Tegaderm AG Mesh] Home Meds: Home Meds Clopidogrel [Plavix] 75 mg PO DAILY 06/18/17 [History] Losartan [Cozaar] 25 mg PO BEDTIME 06/18/17 [History] Nitroglycerin [Nitrostat] 0.4 mg SL ASDIRECTED PRN 06/18/17 [History] atorvaSTATin [Lipitor] 80 mg PO BEDTIME 06/18/17 [History] oxyCODONE 5 mg PO Q4H PRN 06/18/17 [History] Amitriptyline [Elavil] 10 mg PO BEDTIME 10/19/17 [History] DULoxetine [Cymbalta] 60 mg PO DAILY 10/19/17 [History] Furosemide 40 mg PO ASDIRECTED PRN 10/19/17 [History] Insulin Glargine,Hum.Rec.Anlog [Basaglar Kwikpen U-100] 50 units SQ BEDTIME 12/08/17 [History] Levothyroxine [Synthroid] 50 mcg PO DAILY 04/04/19 [History] Cholecalciferol (Vitamin D3) [Vitamin D3] 25 mcg PO DAILY 10/03/20 [History] Fenofibrate Nanocrystallized [Fenofibrate] 48 mg PO DAILY 10/03/20 [History] traMADol [Ultram] 50 mg PO DAILY 10/03/20 [History] InFLIXimab [Remicade] 100 mg IV ASDIRECTED 10/04/20 [History] Past Medical History HEENT History: Reports: Impaired Vision Cardiovascular History: Reports: Angina, Bypass, Heart Murmur, High Cholesterol, Hypertension, MS, Stents Other Cardiovascular History: 'partial heart' Respiratory History: Reports: Sleep Apnea Other Respiratory History: pneumonia Gastrointestinal History: Reports: None Genitourinary History: Reports: UTI, 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 stroke in the passed 3 years months. stroke affecting left arm. numbnessl to left arm. Psychiatric History: Reports: Anxiety, Depression Endocrine/Metabolic History: Reports: Diabetes, Type II, Hypothyroidism Hematologic History: Reports: Other (See Below) Other Hematologic History: Easy bruising, not on anticoagulant therapy Immunologic History: Reports: None Oncologic (Cancer) History: Reports: Lymphoma Dermatologic History: Reports: Eczema - Infectious Disease History Infectious Disease History: Reports: Chicken Pox, Measles, Mumps - Past Surgical History Head Surgeries/Procedures: Reports: None HEENT Surgical History: Reports: Adenoidectomy, Cataract Surgery, Tonsillectomy, Other (See Below) Other HEENT Surgeries/Procedures: Sinus surgery, blepheroplasty Cardiovascular Surgical History: Reports: Other (See Below) Other Cardiovascular Surgeries/Procedures: 3 bypasses, 10 stents Respiratory Surgical History: Reports: None GI Surgical History: Reports: Cholecystectomy Female Surgical History: Reports: Breast Biopsy, Hysterectomy Neurological Surgical History: Reports: None Musculoskeletal Surgical History: Reports: Carpal Tunnel Oncologic Surgical History: Reports: None Dermatological Surgical History: Reports: None Social & Family History - Family History Family Medical History: No Pertinent Family History - Tobacco Use Tobacco Use Status *Q: Never Tobacco User - Caffeine Use Caffeine Use: Reports: Soda Other Caffeine Use: 3 cups of coff a week and diet pepsi daily - Recreational Drug Use Recreational Drug Use: No ED ROS GENERAL - Review of Systems Review Of Systems: See Below ED EXAM, GENERAL - Physical Exam Exam: See Below Course - Vital Signs Last Recorded V/S: Last Vital Signs Temp 101.6 F H 10/03/20 22:41 Pulse 110 H 10/04/20 00:24 Resp 18 10/04/20 00:24 BP 150/81 H 10/04/20 00:24 Pulse Ox 96 10/04/20 00:24 - Orders/Labs/Meds Orders: Active Orders 24 hr Category Date Time Status Patient Status [ADT] Routine ADT 10/04/20 00:51 Active Blood Pressure Mgt: Sepsis [RC] Q15MX2 Care 10/03/20 23:06 Active EKG Documentation Completion [RC] STAT Care 10/03/20 23:06 Active CULTURE BLOOD [BC] Stat Lab 10/03/20 22:50 Received CULTURE BLOOD [BC] Stat Lab 10/03/20 23:04 Received CULTURE URINE [RM] Stat Lab 10/03/20 22:45 Received Sodium Chloride 0.9% [Saline Flush] Med 10/03/20 23:06 Active 10 ml FLUSH ASDIRECTED PRN Sodium Chloride 0.9% [Saline Flush] Med 10/03/20 23:06 Active 2.5 ml FLUSH ASDIRECTED PRN Blood Culture x2 Reflex Set [OM.PC] Stat Oth 10/03/20 23:06 Ordered Saline Lock Insert [OM.PC] Stat Oth 10/03/20 23:06 Ordered Severe Sepsis Onset Time [OM.PC] Stat Ot 10/03/20 23:06 Ordered Medication Orders Sodium Chloride (Sodium Chloride 0.9% 10 Ml Syringe) 10 ml FLUSH ASDIRECTED PRN PRN Reason: Keep Vein Open Last Admin: 10/03/20 23:28 Dose: 10 ml Documented by: JUDE Sodium Chloride (Sodium Chloride 0.9% 2.5 Ml Syringe) 2.5 ml FLUSH ASDIRECTED PRN PRN Reason: Keep Vein Open Last Admin: 10/03/20 23:28 Dose: 2.5 ml Documented by: JUDE Labs: Laboratory Tests 10/03/20 10/03/20 10/03/20 Range/Units 22:45 22:45 22:50 WBC 9.41 (4.0-11.0) K/uL RBC 4.20 L (4.30-5.90) M/uL Hgb 13.2 (12.0-16.0) g/dL Hct 37.5 (36.0-46.0) % MCV 89.3 (80.0-98.0) fL MCH 31.4 (27.0-32.0) pg MCHC 35.2 (31.0-37.0) g/dL RDW Std Deviation 42.8 (28.0-62.0) fl RDW Coeff of Aranza 13 (11.0-15.0) % Plt Count 205 (150-400) K/uL MPV 9.80 (7.40-12.00) fL Neut % (Auto) 68.6 (48.0-80.0) % Lymph % (Auto) 18.8 (16.0-40.0) % [place] % (Auto) 12.1 (0.0-15.0) % Eos % (Auto) 0.2 (0.0-7.0) % Baso % (Auto) 0.3 (0.0-1.5) % Neut # (Auto) 6.5 H (1.4-5.7) K/uL Lymph # (Auto) 1.8 (0.6-2.4) K/uL [place] # (Auto) 1.1 H (0.0-0.8) K/uL Eos # (Auto) 0.0 (0.0-0.7) K/uL Baso # (Auto) 0.0 (0.0-0.1) K/uL INR APTT (18.6-31.3) SEC Lactate (0.20-2.00) mmol/L Sodium (136-145) mmol/L Potassium (3.5-5.1) mmol/L Chloride (98-107) mmol/L Carbon Dioxide (21.0-32.0) mmol/L BUN (7.0-18.0) mg/dL Creatinine (0.6-1.0) mg/dL Est Cr Clr Drug Dosing mL/min Estimated GFR (MDRD) ml/min Glucose (74-106) mg/dL Calcium (8.5-10.1) mg/dL Total Bilirubin (0.2-1.0) mg/dL AST (15-37) IU/L ALT (14-63) IU/L Alkaline Phosphatase (46-116) U/L Troponin I (0.000-0.056) ng/mL Total Protein (6.4-8.2) g/dL Albumin (3.4-5.0) g/dL Globulin (2.6-4.0) g/dL Albumin/Globulin Ratio (0.9-1.6) Urine Color YELLOW Urine Appearance CLOUDY Urine pH 5.0 (5.0-8.0) Ur Specific [place] 1.025 (1.001-1.035) Urine Protein 30 H (NEGATIVE) mg/dL Urine Glucose (UA) >=1000 (NEGATIVE) mg/dL Urine Ketones NEGATIVE (NEGATIVE) mg/dL Urine Occult Blood MODERATE H (NEGATIVE) Urine Nitrite NEGATIVE (NEGATIVE) Urine Bilirubin NEGATIVE (NEGATIVE) Urine Urobilinogen 0.2 (<2.0) EU/dL Ur Leukocyte Esterase MODERATE H (NEGATIVE) Urine RBC 10-15 (0-2/HPF) Urine WBC TO NUMEROUS TO COUNT H (0-5/HPF) Ur Epithelial Cells FEW (NONE-FEW) Urine Bacteria 4+ H (NEGATIVE) Urine Mucus LIGHT (NONE-MOD) Influenza Type A RNA NEGATIVE (NEGATIVE) Influenza Type B RNA NEGATIVE (NEGATIVE) SARS-CoV-2 RNA (VERO) NEGATIVE (NEGATIVE) 10/03/20 10/03/20 10/03/20 Range/Units 22:50 22:50 22:50 WBC (4.0-11.0) K/uL RBC (4.30-5.90) M/uL Hgb (12.0-16.0) g/dL Hct (36.0-46.0) % MCV (80.0-98.0) fL MCH (27.0-32.0) pg MCHC (31.0-37.0) g/dL RDW Std Deviation (28.0-62.0) fl RDW Coeff of Aranza (11.0-15.0) % Plt Count (150-400) K/uL MPV (7.40-12.00) fL Neut % (Auto) (48.0-80.0) % Lymph % (Auto) (16.0-40.0) % [place] % (Auto) (0.0-15.0) % Eos % (Auto) (0.0-7.0) % Baso % (Auto) (0.0-1.5) % Neut # (Auto) (1.4-5.7) K/uL Lymph # (Auto) (0.6-2.4) K/uL [place] # (Auto) (0.0-0.8) K/uL Eos # (Auto) (0.0-0.7) K/uL Baso # (Auto) (0.0-0.1) K/uL INR 1.01 APTT 23.7 (18.6-31.3) SEC Lactate 1.2 (0.20-2.00) mmol/L Sodium 136 (136-145) mmol/L Potassium 4.0 (3.5-5.1) mmol/L Chloride 101 (98-107) mmol/L Carbon Dioxide 23.9 (21.0-32.0) mmol/L BUN 22 H (7.0-18.0) mg/dL Creatinine 1.6 H (0.6-1.0) mg/dL Est Cr Clr Drug Dosing 32.73 mL/min Estimated GFR (MDRD) 32.1 ml/min Glucose 284 H (74-106) mg/dL Calcium 8.5 (8.5-10.1) mg/dL Total Bilirubin 1.3 H (0.2-1.0) mg/dL AST 16 (15-37) IU/L ALT 30 (14-63) IU/L Alkaline Phosphatase 123 H (46-116) U/L Troponin I (0.000-0.056) ng/mL Total Protein 6.0 L (6.4-8.2) g/dL Albumin 2.4 L (3.4-5.0) g/dL Globulin 3.6 (2.6-4.0) g/dL Albumin/Globulin Ratio 0.7 L (0.9-1.6) Urine Color Urine Appearance Urine pH (5.0-8.0) Ur Specific Roberts (1.001-1.035) Urine Protein (NEGATIVE) mg/dL Urine Glucose (UA) (NEGATIVE) mg/dL Urine Ketones (NEGATIVE) mg/dL Urine Occult Blood (NEGATIVE) Urine Nitrite (NEGATIVE) Urine Bilirubin (NEGATIVE) Urine Urobilinogen (<2.0) EU/dL Ur Leukocyte Esterase (NEGATIVE) Urine RBC (0-2/HPF) Urine WBC (0-5/HPF) Ur Epithelial Cells (NONE-FEW) Urine Bacteria (NEGATIVE) Urine Mucus (NONE-MOD) Influenza Type A RNA (NEGATIVE) Influenza Type B RNA (NEGATIVE) SARS-CoV-2 RNA (VERO) (NEGATIVE) 10/03/20 Range/Units 22:50 WBC (4.0-11.0) K/uL RBC (4.30-5.90) M/uL Hgb (12.0-16.0) g/dL Hct (36.0-46.0) % MCV (80.0-98.0) fL MCH (27.0-32.0) pg MCHC (31.0-37.0) g/dL RDW Std Deviation (28.0-62.0) fl RDW Coeff of Aranza (11.0-15.0) % Plt Count (150-400) K/uL MPV (7.40-12.00) fL Neut % (Auto) (48.0-80.0) % Lymph % (Auto) (16.0-40.0) % [place] % (Auto) (0.0-15.0) % Eos % (Auto) (0.0-7.0) % Baso % (Auto) (0.0-1.5) % Neut # (Auto) (1.4-5.7) K/uL Lymph # (Auto) (0.6-2.4) K/uL [place] # (Auto) (0.0-0.8) K/uL Eos # (Auto) (0.0-0.7) K/uL Baso # (Auto) (0.0-0.1) K/uL INR APTT (18.6-31.3) SEC Lactate (0.20-2.00) mmol/L Sodium (136-145) mmol/L Potassium (3.5-5.1) mmol/L Chloride (98-107) mmol/L Carbon Dioxide (21.0-32.0) mmol/L BUN (7.0-18.0) mg/dL Creatinine (0.6-1.0) mg/dL Est Cr Clr Drug Dosing mL/min Estimated GFR (MDRD) ml/min Glucose (74-106) mg/dL Calcium (8.5-10.1) mg/dL Total Bilirubin (0.2-1.0) mg/dL AST (15-37) IU/L ALT (14-63) IU/L Alkaline Phosphatase (46-116) U/L Troponin I < 0.050 (0.000-0.056) ng/mL Total Protein (6.4-8.2) g/dL Albumin (3.4-5.0) g/dL Globulin (2.6-4.0) g/dL Albumin/Globulin Ratio (0.9-1.6) Urine Color Urine Appearance Urine pH (5.0-8.0) Ur Specific Roberts (1.001-1.035) Urine Protein (NEGATIVE) mg/dL Urine Glucose (UA) (NEGATIVE) mg/dL Urine Ketones (NEGATIVE) mg/dL Urine Occult Blood (NEGATIVE) Urine Nitrite (NEGATIVE) Urine Bilirubin (NEGATIVE) Urine Urobilinogen (<2.0) EU/dL Ur Leukocyte Esterase (NEGATIVE) Urine RBC (0-2/HPF) Urine WBC (0-5/HPF) Ur Epithelial Cells (NONE-FEW) Urine Bacteria (NEGATIVE) Urine Mucus (NONE-MOD) Influenza Type A RNA (NEGATIVE) Influenza Type B RNA (NEGATIVE) SARS-CoV-2 RNA (VERO) (NEGATIVE) Meds: Medications Generic Name Dose Route Start Last Admin Trade Name Freq PRN Reason Stop Dose Admin Sodium Chloride 10 ml 10/03/20 23:06 10/03/20 23:28 Sodium Chloride 0.9% 10 Ml Syringe FLUSH 10 ml ASDIRECTED PRN Administration Keep Vein Open Sodium Chloride 2.5 ml 10/03/20 23:06 10/03/20 23:28 Sodium Chloride 0.9% 2.5 Ml Syringe FLUSH 2.5 ml ASDIRECTED PRN Administration Keep Vein Open Discontinued Medications Generic Name Dose Route Start Last Admin Trade Name Freq PRN Reason Stop Dose Admin Sodium Chloride 1,000 mls @ 999 mls/hr 10/03/20 23:06 10/03/20 23:26 Normal Saline IV 10/04/20 00:06 999 mls/hr BOLUS ONE Administration Protocol Sodium Chloride 1,000 mls @ 999 mls/hr 10/03/20 23:10 Normal Saline IV 10/04/20 00:10 .Bolus ONE Ceftriaxone Sodium/Dextrose 1 50 mls @ 100 mls/hr 10/03/20 23:10 10/03/20 23:26 gm/ Premix IV 10/03/20 23:39 100 mls/hr ONETIME ONE Administration Departure - Departure Time of Disposition: 01:00 Disposition: Home, Self-Care 01 Condition: Good Clinical Impression: Pyelonephritis, Frequent falls, Fall in elderly patient, Dehydration Sepsis Qualifiers: Sepsis type: sepsis due to unspecified organism Sepsis acute organ dysfunction status: without acute organ dysfunction Qualified Code(s): A41.9 - Sepsis, unspecified organism - Discharge Information Referrals: PCP,None [Primary Care Provider] - Sepsis Event Note (ED) - Evaluation Sepsis Screening Result: Possible Sepsis Risk - Focused Exam Vital Signs: Vital Signs Temp Pulse Resp BP Pulse Ox 10/04/20 00:24 110 H 18 150/81 H 96 10/03/20 23:26 168/88 H 10/03/20 23:09 147/81 H 10/03/20 22:57 173/95 H 10/03/20 22:41 101.6 F H 110 H 18 152/88 H 95 - My Orders Last 24 Hours: My Active Orders 10/03/20 22:45 CULTURE URINE [RM] Stat 10/03/20 22:50 CULTURE BLOOD [BC] Stat 10/03/20 23:04 CULTURE BLOOD [BC] Stat 10/03/20 23:06 Blood Pressure Mgt: Sepsis [RC] Q15MX2 EKG Documentation Completion [RC] STAT Sodium Chloride 0.9% [Saline Flush] 10 ml FLUSH ASDIRECTED PRN Sodium Chloride 0.9% [Saline Flush] 2.5 ml FLUSH ASDIRECTED PRN Blood Culture x2 Reflex Set [OM.PC] Stat Saline Lock Insert [OM.PC] Stat Severe Sepsis Onset Time [OM.PC] Stat 10/04/20 00:51 Patient Status [ADT] Routine - Assessment/Plan Last 24 Hours: My Active Orders 10/03/20 22:45 CULTURE URINE [RM] Stat 10/03/20 22:50 CULTURE BLOOD [BC] Stat 10/03/20 23:04 CULTURE BLOOD [BC] Stat 10/03/20 23:06 Blood Pressure Mgt: Sepsis [RC] Q15MX2 EKG Documentation Completion [RC] STAT Sodium Chloride 0.9% [Saline Flush] 10 ml FLUSH ASDIRECTED PRN Sodium Chloride 0.9% [Saline Flush] 2.5 ml FLUSH ASDIRECTED PRN Blood Culture x2 Reflex Set [OM.PC] Stat Saline Lock Insert [OM.PC] Stat Severe Sepsis Onset Time [OM.PC] Stat 10/04/20 00:51 Patient Status [ADT] Routine
[2020-10-04] MEDS ORDERED: Acetaminophen 325 MG Tab PO ONE (01:01)
[2020-10-04] MEDS ORDERED: Morphine 2 MG/ML SYRINGE IVPUSH PRN (02:33)
[2020-10-04] MEDS ORDERED: Lactated Ringers 1,000 ML IV ONE (02:35)
[2020-10-04] MEDS ORDERED: Lactated Ringers 500 ML IV ONE (02:49)
[2020-10-04] MEDS ORDERED: 50% Dextrose in Water 50 ML Syringe IV PRN (02:49)
[2020-10-04] MEDS ORDERED: Glucagon,Human Recombinant 1 MG Vial IM PRN (02:49)
[2020-10-04] MEDS ORDERED: Albuterol/Ipratropium 3.0-0.5 MG/3 ML Neb Soln NEB PRN (02:51)
[2020-10-04] MEDS: Heparin Sodium 5,000 Units/ML Vial SUBCUT SCH ×3 (03:13→17:52)
[2020-10-04] MEDS ORDERED: Lactated Ringers 1,000 ML IV SCH (03:35)
[2020-10-04] MEDS ORDERED: Sodium Chloride 0.9% 2.5 ML Syringe FLUSH PRN (08:06)
--- NOTE | 2020-10-04 08:07 | PCM.HP.2 ---
H&P History of Present Illness - General Date of Service: 10/04/20 Admit Problem/Dx: Admission Diagnosis/Problem Admission Diagnosis/Problem Sepsis Source of Information: Patient History Limitations: Reports: No Limitations - History of Present Illness Initial Comments - Free Text/Narative: This is a 70-year-old female with pmh of TIAs, CAD post CABG and multiple stents on Plavix, CHF, and UTIs who presented ER last night secondary to generalized weakness x1 day with 3 falls throughout the course of the day. Patient reports she normally walks with her walker and is able to walk outdoors. Patient reports that she tried to go outside today and felt too weak and fell down and landed on her bottom. Patient does not recall hitting her head and denies any loss of consciousness. Patient denies any chest pain or shortness of breath. She reports that she was recently treated with Bactrim for UTI the beginning of September and reports that she continued to have symptoms. She left another UA on the or for her provider at [facility] which they continue to see UTI and sent for ciprofloxacin to the pharmacy. She reports she was so weak she was unable to go get the new prescription. She reports she has had recent vomiting, nausea and poor appetite while at home. Patient denies any abdominal pain or flank pain denies any history of renal stones. Patient reports dysuria, frequency, urgency in her urinary output. Patient reports recent constipation as she has not been eating much. Patient denies any melena or bright red blood per rectum. Patient reports that she has been compliant with her medications up until the last couple days that she has not been feeling well. She denies any recreational drug use no tobacco use and no alcohol use. Denies any Covid 19 symptoms and no close contacts that she is aware of. In the ER no leukocytosis noted hemoglobin 13.2 hematocrit 37.5. Platelet count 205,000. Lactic acid 1.2 BUN 22 creatinine 1.6 sodium 136 potassium 4.0. Bilirubin 1.3 alk phos 123 troponin negative. UA obtained which show significant UTI with +4 bacteria too numerous to count WBCs moderate leukocyte esterase negative nitrite moderate blood. Covid influenza swabbing negative. Head CT obtained due to weakness and confusion. No evidence of acute infarction intracranial hemorrhage or mass-effect seen. Chest x-ray obtained which reveals no acute cardiopulmonary process seen. Vital signs in the ER noted initial tachycardia with elevated blood pressures [id number] to 90s patient also noted to be febrile 101.2 F in the ER. Patient treated with IV fluid boluses x3 L in the ER. Heart rate improved after fluid resuscitation as well as blood pressure. She was treated with Rocephin 1 g for UTI. She was admitted observation for sepsis secondary to complicated UTI, falls and generalized weakness. Abdomen Pain Score (Numeric/FACES): 3 - Related Data Allergies/Adverse Reactions: Allergies Allergy/AdvReac Type Severity Reaction Status Date / Time Penicillins Allergy Severe Cannot Verified 10/03/20 22:41 Remember silver Allergy Rash Verified 10/03/20 22:41 [From Tegaderm AG Mesh] tegaderm Allergy Burning Uncoded 10/04/20 02:01 Home Medications: Home Meds Clopidogrel [Plavix] 75 mg PO DAILY 06/18/17 [History] Losartan [Cozaar] 12.5 mg PO BEDTIME 06/18/17 [History] Nitroglycerin [Nitrostat] 0.4 mg SL ASDIRECTED PRN 06/18/17 [History] atorvaSTATin [Lipitor] 80 mg PO BEDTIME 06/18/17 [History] oxyCODONE 5 mg PO Q4H PRN 06/18/17 [History] Amitriptyline [Elavil] 10 mg PO BEDTIME 10/19/17 [History] DULoxetine [Cymbalta] 60 mg PO DAILY 10/19/17 [History] Furosemide 40 mg PO ASDIRECTED PRN 10/19/17 [History] Insulin Glargine,Hum.Rec.Anlog [[place] Candelarioikpen U-100] 50 units SQ BEDTIME 12/08/17 [History] Levothyroxine [Synthroid] 50 mcg PO DAILY 04/04/19 [History] Cholecalciferol (Vitamin D3) [Vitamin D3] 25 mcg PO DAILY 10/03/20 [History] Fenofibrate Nanocrystallized [Fenofibrate] 48 mg PO DAILY 10/03/20 [History] traMADol [Ultram] 50 mg PO DAILY 10/03/20 [History] InFLIXimab [Remicade] 100 mg IV ASDIRECTED 10/04/20 [History] Past Medical History HEENT History: Reports: Impaired Vision Cardiovascular History: Reports: Angina, Bypass, Heart Failure, Heart Murmur, High Cholesterol, Hypertension, GA, Stents Respiratory History: Reports: Sleep Apnea Other Respiratory History: pneumonia. 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 stroke in the passed 3 years . Had 2 storkes for the past 3 years. stroke affecting left arm. numbness to left arm. right arm partially numb. Bilateal lower legs are numb. Psychiatric History: Reports: Anxiety, Depression Endocrine/Metabolic History: Reports: Diabetes, Type II, Hypothyroidism Hematologic History: Reports: Other (See Below) Other Hematologic History: Easy bruising, not on anticoagulant therapy Immunologic History: Reports: None Oncologic (Cancer) History: Reports: Lymphoma Dermatologic History: Reports: Eczema - Infectious Disease History Infectious Disease History: Reports: Chicken Pox, Measles, Mumps - Past Surgical History Head Surgeries/Procedures: Reports: None HEENT Surgical History: Reports: Adenoidectomy, Cataract Surgery, Tonsillectomy, Other (See Below) Other HEENT Surgeries/Procedures: Sinus surgery, blepheroplasty Cardiovascular Surgical History: Reports: Other (See Below) Other Cardiovascular Surgeries/Procedures: 3 bypasses, 10 stents Respiratory Surgical History: Reports: None GI Surgical History: Reports: Cholecystectomy Female Surgical History: Reports: Breast Biopsy, Hysterectomy Neurological Surgical History: Reports: None Musculoskeletal Surgical History: Reports: Carpal Tunnel Oncologic Surgical History: Reports: None Dermatological Surgical History: Reports: None Social & Family History - Family History Family Medical History: No Pertinent Family History - Tobacco Use Tobacco Use Status *Q: Never Tobacco User Second Hand Smoke Exposure: No - Caffeine Use Caffeine Use: Reports: Coffee Other Caffeine Use: coffee twice a week - Alcohol Use Alcohol Use History: No - Recreational Drug Use Recreational Drug Use: No - Living Situation & Occupation Living situation: Reports: Alone Occupation: Retired H&P Review of Systems - Review of Systems: Review Of Systems: See Below General: Reports: Fever, Chills, Malaise, Weakness, Decreased Appetite HEENT: Reports: No Symptoms. Denies: Headaches, Sinus Congestion, Sore Throat, Vertigo Pulmonary: Reports: No Symptoms. Denies: Shortness of Breath Cardiovascular: Reports: No Symptoms. Denies: Chest Pain Gastrointestinal: Reports: Constipation, Decreased Appetite, Nausea, Vomiting. Denies: Abdominal Pain, Black Stool, Bloody Stool Genitourinary: Reports: Dysuria, Frequency, Burning, Urgency. Denies: Flank Pain Musculoskeletal: Reports: Leg Pain (Lower extremity pain which is at baseline.). Denies: Neck Pain Psychiatric: Reports: No Symptoms Neurological: Reports: No Symptoms Hematologic/Lymphatic: Reports: No Symptoms Immunologic: Reports: No Symptoms Exam - Exam Exam: See Below - Vital Signs Vital Signs: Last Vital Signs Temp 97.2 F 10/04/20 07:42 Pulse 88 10/04/20 07:42 Resp 16 10/04/20 07:42 BP 109/60 10/04/20 07:42 Pulse Ox 98 10/04/20 07:42 Weight: 95.254 kg - Exam Quality Assessment: Supplemental Oxygen, Central Line/PICC (Port in place), DVT Prophylaxis General: Alert, Oriented, Cooperative HEENT: Conjunctiva Clear, Mucosa Moist & [place], Posterior Pharynx Clear Lungs: Clear to Auscultation, Normal Respiratory Effort Cardiovascular: Regular Rate, Regular Rhythm GI/Abdominal Exam: Normal Bowel Sounds, Soft, Non-Tender Back Exam: Normal Inspection. No: CVA Tenderness (L), CVA Tenderness (R) Extremities: Normal Inspection, Normal Range of Motion, Non-Tender, Pedal Edema (Scant pedal edema noted nonpitting) Skin: Warm, Dry Neuro Extensive - Mental Status: Alert, Oriented x3, Normal Mood/Affect Psychiatric: Alert, Normal Affect, Normal Mood - Patient Data Lab Results Last 24 hrs: Laboratory Results - last 24 hr 10/03/20 10/03/20 10/03/20 Range/Units 22:45 22:45 22:50 WBC 9.41 (4.0-11.0) K/uL RBC 4.20 L (4.30-5.90) M/uL Hgb 13.2 (12.0-16.0) g/dL Hct 37.5 (36.0-46.0) % MCV 89.3 (80.0-98.0) fL MCH 31.4 (27.0-32.0) pg MCHC 35.2 (31.0-37.0) g/dL RDW Std Deviation 42.8 (28.0-62.0) fl RDW Coeff of [place] 13 (11.0-15.0) % Plt Count 205 (150-400) K/uL MPV 9.80 (7.40-12.00) fL Neut % (Auto) 68.6 (48.0-80.0) % Lymph % (Auto) 18.8 (16.0-40.0) % [place] % (Auto) 12.1 (0.0-15.0) % Eos % (Auto) 0.2 (0.0-7.0) % Baso % (Auto) 0.3 (0.0-1.5) % Neut # (Auto) 6.5 H (1.4-5.7) K/uL Lymph # (Auto) 1.8 (0.6-2.4) K/uL [place] # (Auto) 1.1 H (0.0-0.8) K/uL Eos # (Auto) 0.0 (0.0-0.7) K/uL Baso # (Auto) 0.0 (0.0-0.1) K/uL INR APTT (18.6-31.3) SEC Lactate (0.20-2.00) mmol/L Sodium (136-145) mmol/L Potassium (3.5-5.1) mmol/L Chloride (98-107) mmol/L Carbon Dioxide (21.0-32.0) mmol/L BUN (7.0-18.0) mg/dL Creatinine (0.6-1.0) mg/dL Est Cr Clr Drug Dosing mL/min Estimated GFR (MDRD) ml/min Glucose (74-106) mg/dL POC Glucose (70-99) mg/dL Calcium (8.5-10.1) mg/dL Total Bilirubin (0.2-1.0) mg/dL AST (15-37) IU/L ALT (14-63) IU/L Alkaline Phosphatase (46-116) U/L Troponin I (0.000-0.056) ng/mL Total Protein (6.4-8.2) g/dL Albumin (3.4-5.0) g/dL Globulin (2.6-4.0) g/dL Albumin/Globulin Ratio (0.9-1.6) Urine Color YELLOW Urine Appearance CLOUDY Urine pH 5.0 (5.0-8.0) Ur Specific [place] 1.025 (1.001-1.035) Urine Protein 30 H (NEGATIVE) mg/dL Urine Glucose (UA) >=1000 (NEGATIVE) mg/dL Urine Ketones NEGATIVE (NEGATIVE) mg/dL Urine Occult Blood MODERATE H (NEGATIVE) Urine Nitrite NEGATIVE (NEGATIVE) Urine Bilirubin NEGATIVE (NEGATIVE) Urine Urobilinogen 0.2 (<2.0) EU/dL Ur Leukocyte Esterase MODERATE H (NEGATIVE) Urine RBC 10-15 (0-2/HPF) Urine WBC TO NUMEROUS TO COUNT H (0-5/HPF) Ur Epithelial Cells FEW (NONE-FEW) Urine Bacteria 4+ H (NEGATIVE) Urine Mucus LIGHT (NONE-MOD) Influenza Type A RNA NEGATIVE (NEGATIVE) Influenza Type B RNA NEGATIVE (NEGATIVE) SARS-CoV-2 RNA (VERO) NEGATIVE (NEGATIVE) 10/03/20 10/03/20 10/03/20 Range/Units 22:50 22:50 22:50 WBC (4.0-11.0) K/uL RBC (4.30-5.90) M/uL Hgb (12.0-16.0) g/dL Hct (36.0-46.0) % MCV (80.0-98.0) fL MCH (27.0-32.0) pg MCHC (31.0-37.0) g/dL RDW Std Deviation (28.0-62.0) fl RDW Coeff of [place] (11.0-15.0) % Plt Count (150-400) K/uL MPV (7.40-12.00) fL Neut % (Auto) (48.0-80.0) % Lymph % (Auto) (16.0-40.0) % [place] % (Auto) (0.0-15.0) % Eos % (Auto) (0.0-7.0) % Baso % (Auto) (0.0-1.5) % Neut # (Auto) (1.4-5.7) K/uL Lymph # (Auto) (0.6-2.4) K/uL [place] # (Auto) (0.0-0.8) K/uL Eos # (Auto) (0.0-0.7) K/uL Baso # (Auto) (0.0-0.1) K/uL INR 1.01 APTT 23.7 (18.6-31.3) SEC Lactate 1.2 (0.20-2.00) mmol/L Sodium 136 (136-145) mmol/L Potassium 4.0 (3.5-5.1) mmol/L Chloride 101 (98-107) mmol/L Carbon Dioxide 23.9 (21.0-32.0) mmol/L BUN 22 H (7.0-18.0) mg/dL Creatinine 1.6 H (0.6-1.0) mg/dL Est Cr Clr Drug Dosing 32.73 mL/min Estimated GFR (MDRD) 32.1 ml/min Glucose 284 H (74-106) mg/dL POC Glucose (70-99) mg/dL Calcium 8.5 (8.5-10.1) mg/dL Total Bilirubin 1.3 H (0.2-1.0) mg/dL AST 16 (15-37) IU/L ALT 30 (14-63) IU/L Alkaline Phosphatase 123 H (46-116) U/L Troponin I (0.000-0.056) ng/mL Total Protein 6.0 L (6.4-8.2) g/dL Albumin 2.4 L (3.4-5.0) g/dL Globulin 3.6 (2.6-4.0) g/dL Albumin/Globulin Ratio 0.7 L (0.9-1.6) Urine Color Urine Appearance Urine pH (5.0-8.0) Ur Specific [place] (1.001-1.035) Urine Protein (NEGATIVE) mg/dL Urine Glucose (UA) (NEGATIVE) mg/dL Urine Ketones (NEGATIVE) mg/dL Urine Occult Blood (NEGATIVE) Urine Nitrite (NEGATIVE) Urine Bilirubin (NEGATIVE) Urine Urobilinogen (<2.0) EU/dL Ur Leukocyte Esterase (NEGATIVE) Urine RBC (0-2/HPF) Urine WBC (0-5/HPF) Ur Epithelial Cells (NONE-FEW) Urine Bacteria (NEGATIVE) Urine Mucus (NONE-MOD) Influenza Type A RNA (NEGATIVE) Influenza Type B RNA (NEGATIVE) SARS-CoV-2 RNA (VERO) (NEGATIVE) 10/03/20 10/04/20 Range/Units 22:50 06:39 WBC (4.0-11.0) K/uL RBC (4.30-5.90) M/uL Hgb (12.0-16.0) g/dL Hct (36.0-46.0) % MCV (80.0-98.0) fL MCH (27.0-32.0) pg MCHC (31.0-37.0) g/dL RDW Std Deviation (28.0-62.0) fl RDW Coeff of [place] (11.0-15.0) % Plt Count (150-400) K/uL MPV (7.40-12.00) fL Neut % (Auto) (48.0-80.0) % Lymph % (Auto) (16.0-40.0) % [place] % (Auto) (0.0-15.0) % Eos % (Auto) (0.0-7.0) % Baso % (Auto) (0.0-1.5) % Neut # (Auto) (1.4-5.7) K/uL Lymph # (Auto) (0.6-2.4) K/uL [place] # (Auto) (0.0-0.8) K/uL Eos # (Auto) (0.0-0.7) K/uL Baso # (Auto) (0.0-0.1) K/uL INR APTT (18.6-31.3) SEC Lactate (0.20-2.00) mmol/L Sodium (136-145) mmol/L Potassium (3.5-5.1) mmol/L Chloride (98-107) mmol/L Carbon Dioxide (21.0-32.0) mmol/L BUN (7.0-18.0) mg/dL Creatinine (0.6-1.0) mg/dL Est Cr Clr Drug Dosing mL/min Estimated GFR (MDRD) ml/min Glucose (74-106) mg/dL POC Glucose 190 H (70-99) mg/dL Calcium (8.5-10.1) mg/dL Total Bilirubin (0.2-1.0) mg/dL AST (15-37) IU/L ALT (14-63) IU/L Alkaline Phosphatase (46-116) U/L Troponin I < 0.050 (0.000-0.056) ng/mL Total Protein (6.4-8.2) g/dL Albumin (3.4-5.0) g/dL Globulin (2.6-4.0) g/dL Albumin/Globulin Ratio (0.9-1.6) Urine Color Urine Appearance Urine pH (5.0-8.0) Ur Specific [place] (1.001-1.035) Urine Protein (NEGATIVE) mg/dL Urine Glucose (UA) (NEGATIVE) mg/dL Urine Ketones (NEGATIVE) mg/dL Urine Occult Blood (NEGATIVE) Urine Nitrite (NEGATIVE) Urine Bilirubin (NEGATIVE) Urine Urobilinogen (<2.0) EU/dL Ur Leukocyte Esterase (NEGATIVE) Urine RBC (0-2/HPF) Urine WBC (0-5/HPF) Ur Epithelial Cells (NONE-FEW) Urine Bacteria (NEGATIVE) Urine Mucus (NONE-MOD) Influenza Type A RNA (NEGATIVE) Influenza Type B RNA (NEGATIVE) SARS-CoV-2 RNA (VERO) (NEGATIVE) Result Diagrams: 10/04/20 10:00 10/04/20 10:00 Sepsis Event Note - Evaluation Sepsis Screening Result: No Definite Risk - Focused Exam Vital Signs: Vital Signs Temp Temp Pulse Resp BP Pulse Ox Pulse Ox 10/04/20 07:42 97.2 F 88 16 109/60 98 10/04/20 03:08 96 10/04/20 03:05 97 F 94 14 116/67 96 10/04/20 02:26 98.2 F 98 15 114/68 94 L 10/04/20 02:01 98.4 F 95 18 95/69 94 L 10/04/20 01:37 102 H 18 136/81 94 L 10/04/20 01:18 101.2 F H 10/04/20 01:07 101.1 F H 105 H 18 136/73 92 L 10/04/20 00:41 106 H 18 130/72 93 L 10/04/20 00:24 110 H 18 150/81 H 96 10/04/20 00:11 113 H 18 150/81 H 96 10/03/20 23:42 116 H 18 156/90 H 95 10/03/20 23:26 168/88 H 10/03/20 23:12 117 H 18 147/81 H 96 10/03/20 23:09 147/81 H 10/03/20 22:57 173/95 H 10/03/20 22:41 101.6 F H 110 H 18 152/88 H 95 - Problem List (1) Sepsis SNOMED Code(s): 63510662 ICD Code: A41.9 - SEPSIS, UNSPECIFIED ORGANISM Status: Acute Current Visit: Yes Qualifiers: Sepsis type: sepsis due to unspecified organism Sepsis acute organ dysfunc tion status: without acute organ dysfunction Qualified Code(s): A41.9 - Sepsis, unspecified organism (2) Complicated UTI (urinary tract infection) SNOMED Code(s): 66361168 ICD Code: N39.0 - URINARY TRACT INFECTION, SITE NOT SPECIFIED Status: Acute Current Visit: Yes (3) Dehydration SNOMED Code(s): 47645517 ICD Code: E86.0 - DEHYDRATION Status: Acute Current Visit: Yes (4) Fall in elderly patient SNOMED Code(s): 569632603 ICD Code: R29.6 - REPEATED FALLS Status: Acute Current Visit: Yes (5) CAD (coronary artery disease) SNOMED Code(s): 40573903 ICD Code: I25.10 - ATHSCL HEART DISEASE OF [place] CORONARY ARTERY W/O ANG PCTRS Status: Chronic Priority: Medium Current Visit: No Qualifiers: Coronary Disease-Associated Artery/Lesion type: unspecified vessel or lesion type [place] vs. transplanted heart: [place] heart Associated angina: without angina Qualified Code(s): I25.10 - Atherosclerotic heart disease of [place] coronary artery without angina pectoris (6) HTN (hypertension) SNOMED Code(s): 36574057 ICD Code: I10 - ESSENTIAL (PRIMARY) HYPERTENSION Status: Chronic Priority: Medium Current Visit: No Qualifiers: Hypertension type: unspecified Qualified Code(s): I10 - Essential (primary) hypertension (7) TIA (transient ischemic attack) SNOMED Code(s): 132528098 ICD Code: G45.9 - TRANSIENT CEREBRAL ISCHEMIC ATTACK, UNSPECIFIED Status: Chronic Current Visit: Yes (8) DM type 2 (diabetes mellitus, type 2) SNOMED Code(s): 52440867 ICD Code: E11.9 - TYPE 2 DIABETES MELLITUS WITHOUT COMPLICATIONS Status: Acute Current Visit: Yes Qualifiers: Diabetes mellitus vacuum frame operator insulin use: with fci use Diabetes m ellitus complication status: with circulatory complication Diabetes mellitus complication detail: with other circulatory complications Qualified Code(s): E11.59 - Type 2 diabetes mellitus with other circulatory complications; Z79.4 - stenocaptioner (current) use of insulin Problem List Initiated/Reviewed/Updated: Yes Orders Last 24hrs: Active Orders 24 hr Category Date Time Status Patient Status [ADT] Routine ADT 10/04/20 00:51 Active Antiembolic Devices [RC] PER UNIT ROUTINE Care 10/04/20 02:29 Active Blood Glucose Check, Bedside [RC] TIDAC Care 10/04/20 02:29 Active Intake and Output [RC] QSHIFT Care 10/04/20 08:05 Ordered Oxygen Therapy [RC] ASDIRECTED Care 10/04/20 02:28 Active RT Aerosol Therapy [RC] ASDIRECTED Care 10/04/20 02:52 Active Up With Assistance [RC] ASDIRECTED Care 10/04/20 02:31 Active Vital Signs [RC] Q4H Care 10/04/20 02:27 Active [employer] Diet [DIET] Diet 10/04/20 Breakfast Active BASIC METABOLIC PANEL,BMP [CHEM] AM Lab 10/05/20 05:11 Ordered CBC WITH AUTO DIFF [HEME] AM Lab 10/05/20 05:11 Ordered CULTURE BLOOD [BC] Stat Lab 10/03/20 22:50 Received CULTURE BLOOD [BC] Stat Lab 10/03/20 23:04 Received CULTURE URINE [RM] Stat Lab 10/03/20 22:45 Received MAGNESIUM [CHEM] AM Lab 10/05/20 05:11 Ordered Acetaminophen [TylenoL] Med 10/04/20 02:32 Active 650 mg PO Q6H PRN Albuterol/Ipratropium [DuoNeb 3.0-0.5 MG/3 ML] Med 10/04/20 02:51 Active 3 ml NEB Q4HRRT PRN Dextrose 50% in Water Med 10/04/20 02:49 Active 50 ml IV ASDIRECTED PRN Glucagon,Human Recombinant [GlucaGen] Med 10/04/20 02:49 Active 1 mg IM ASDIRECTED PRN Heparin Sodium Med 10/04/20 02:45 Active 5,000 units SUBCUT Q8H Insulin Aspart [NovoLOG] Med 10/04/20 07:30 Active See Protocol SUBCUT TIDAC Lactated Ringers [Ringers, Lactated] 1,000 ml Med 10/04/20 03:35 Active IV ASDIRECTED Morphine Med 10/04/20 02:33 Active 1 mg IVPUSH Q4H PRN Sodium Chloride 0.9% [Saline Flush] Med 10/04/20 08:06 Ordered 2.5 ml FLUSH ASDIRECTED PRN cefTRIAXone [Rocephin in Dextrose,Iso-Osm 1 GM/50 ML] 1 Med 10/04/20 23:00 Active gm Premix Bag 1 bag IV Q24H Blood Culture x2 Reflex Set [OM.PC] Stat Ot 10/03/20 23:06 Ordered SCD [Sequential Compression Device] [OM.PC] Routine Ot 10/04/20 02:29 Ordered Saline Lock Insert [OM.PC] Routine Ot 10/04/20 08:06 Ordered Severe Sepsis Onset Time [OM.PC] Stat Ot 10/03/20 23:06 Ordered Medication Orders Acetaminophen (Acetaminophen 325 Mg Tab) 650 mg PO Q6H PRN PRN Reason: Pain/Fever Albuterol/Ipratropium (Albuterol/Ipratropium 3.0-0.5 Mg/3 Ml Neb Soln) 3 ml NEB Q4HRRT PRN PRN Reason: Shortness of Breath Dextrose/Water (50% Dextrose In Water 50 Ml Syringe) 50 ml IV ASDIRECTED PRN PRN Reason: Hypoglycemia Glucagon (Glucagon,Human Recombinant 1 Mg Vial) 1 mg IM ASDIRECTED PRN PRN Reason: Hypoglycemia Heparin Sodium (Porcine) (Heparin Sodium 5,000 Units/Ml Vial) 5,000 units SUBCUT Q8H CHANTE Last Admin: 10/04/20 03:13 Dose: 5,000 units Documented by: BABATUNDE Lactated Ringer's (Ringers, Lactated) 1,000 mls @ 125 mls/hr IV ASDIRECTED CHANTE Last Admin: 10/04/20 03:48 Dose: 125 mls/hr Documented by: BABATUNDE Ceftriaxone Sodium/Dextrose 1 (gm/ Premix) 50 mls @ 100 mls/hr IV Q24H CHANTE Insulin Aspart (Insulin Aspart 100 Units/Ml 3 Ml Pen) 0 unit SUBCUT TIDAC CHANTE; Protocol Morphine Sulfate (Morphine 2 Mg/Ml Syringe) 1 mg IVPUSH Q4H PRN PRN Reason: Pain (severe 7-10) Sodium Chloride (Sodium Chloride 0.9% 2.5 Ml Syringe) 2.5 ml FLUSH ASDIRECTED PRN PRN Reason: Keep Vein Open Assessment/Plan Comment:: This 70-year-old female admitted with sepsis secondary to complicated UTI, fall and generalized weakness 1. Sepsis secondary to complicated UTI -After fluid resuscitation patient status improved tachycardia improved as well as fevers. Patient hemodynamically stable. -Continue Rocephin 1 g -Blood cultures and urine cultures pending -Consider CT of abdomen to evaluate kidneys better such as possible pyelonephritis if improvement is slow. -UTI treated with Bactrim as an outpatient patient failed outpatient management. Cipro was ordered but patient never took this medication. 2. KIM -Likely secondary to dehydration and sepsis -Improved this morning with IV fluid resuscitation. -We will hold Lasix and losartan -Baseline Creatinine around 0.8 - 1.0 3. Falls/generalized weakness -Likely secondary to acute illness -Consult PT to evaluate and treat 4. DM type II -NovoLog sliding scale with meals -Check blood sugars 3 times daily before meals and as needed -Continue long-acting insulin in the evening will decrease dose from 50 units to 40 units nightly. 5. CAD/TIAs -Continue Plavix -Hold Lasix and losartan 6. Hypothyroidism -Continue levothyroxine VTE prophylaxis: Heparin CODE STATUS: DNR, would be okay with intubation if respiratory failure were to occur. Dispo: We will make patient inpatient due to severity of illness with sepsis and complicated UTI will likely need greater than 2 midnight stay. 2 to 3 days pending improvement and culture results. - Mortality Measure Prognosis:: Good
[2020-10-04] MEDS: Insulin Aspart 100 Units/ML 3 ML Pen SUBCUT SCH ×3 (08:35→17:51)
[2020-10-04] MEDS ORDERED: Sodium Chloride 0.9% 10 ML Syringe FLUSH SCH (10:00)
[2020-10-04] MEDS: DULoxetine 60 MG Cap PO SCH (10:07)
[2020-10-04] MEDS: Clopidogrel 75 MG Tab PO SCH (10:07)
[2020-10-04 10:40] LABS: CARBON DIOXIDE,CO2 25.6 mmol/L (21.0-32.0); POTASSIUM,K 4.1 mmol/L (3.5-5.1)
[2020-10-04] MEDS ORDERED: Magnesium Sulfate/Water 2 GM/50 ML BAG IV ONE (10:57)
[2020-10-04] MEDS ORDERED: Ondansetron 4 MG/2 ML SDV IVPUSH PRN (13:47)
[2020-10-04] MEDS: Amitriptyline 10 MG Tab PO SCH ×3 (20:42→22:06)
[2020-10-04] MEDS: atorvaSTATin 40 MG Tab PO SCH (20:42)
[2020-10-04] MEDS: Insulin Glargine,Human Rec. Analog 100 Units/ML 3 ML Pen SUBCUT SCH (20:43)
[2020-10-05] MEDS: cefTRIAXone 1 GM in Premix Bag 1 BAG IV SCH ×2 (00:17→23:22)
[2020-10-05] MEDS: Heparin Sodium 5,000 Units/ML Vial SUBCUT SCH ×3 (02:26→19:09)
[2020-10-05 05:58] LABS: CARBON DIOXIDE,CO2 25.7 mmol/L (21.0-32.0); POTASSIUM,K 3.9 mmol/L (3.5-5.1)
[2020-10-05] MEDS: Levothyroxine 50 MCG Tab PO SCH (07:58)
[2020-10-05] MEDS: Insulin Aspart 100 Units/ML 3 ML Pen SUBCUT SCH ×3 (07:58→17:45)
[2020-10-05] MEDS: Clopidogrel 75 MG Tab PO SCH (09:05)
[2020-10-05] MEDS: Cholecalciferol (Vitamin D3) 25 MCG Tab PO SCH (09:05)
[2020-10-05] MEDS: DULoxetine 60 MG Cap PO SCH (09:05)
[2020-10-05] MEDS: FENOFIBRATE NANOCRYSTALLIZED 48 MG PO SCH (09:06)
[2020-10-05] MEDS ORDERED: Magnesium Oxide 400 MG Tab PO ONE (09:41)
--- NOTE | 2020-10-05 11:25 | PCM.PN ---
- General Info Date of Service: 10/05/20 Admission Dx/Problem (Free Text): Admission Diagnosis/Problem Admission Diagnosis/Problem Sepsis Subjective Update: seen at bedside, very sleepy, feels very weak Functional Status: Reports: Tolerating Diet, Urinating - Review of Systems General: Reports: Weakness, Fatigue. Denies: Fever, Malaise, Chills Pulmonary: Denies: Shortness of Breath, Pleuritic Chest Pain Cardiovascular: Denies: Chest Pain, Palpitations, Dyspnea on Exertion Gastrointestinal: Denies: Abdominal Pain, Constipation, Decreased Appetite Genitourinary: Denies: Dysuria, Frequency, Burning Musculoskeletal: Denies: Neck Pain, Shoulder Pain Skin: Denies: Cyanosis, Jaundice, Mottled - Patient Data Vitals - Most Recent: Last Vital Signs Temp 36.3 C 10/05/20 08:00 Pulse 91 10/05/20 08:00 Resp 18 10/05/20 08:00 BP 131/63 10/05/20 08:00 Pulse Ox 92 L 10/05/20 08:00 Weight - Most Recent: 95.254 kg I&O - Last 24 Hours: Intake & Output 10/04/20 10/05/20 10/05/20 22:59 06:59 14:59 Intake Total 1550 400 Output Total 1250 300 Balance 300 100 Lab Results Last 24 Hours: Laboratory Results - last 24 hr 10/04/20 10/04/20 10/04/20 Range/Units 11:46 17:32 20:39 WBC (4.0-11.0) K/uL RBC (4.30-5.90) M/uL Hgb (12.0-16.0) g/dL Hct (36.0-46.0) % MCV (80.0-98.0) fL MCH (27.0-32.0) pg MCHC (31.0-37.0) g/dL RDW Std Deviation (28.0-62.0) fl RDW Coeff of Aranza (11.0-15.0) % Plt Count (150-400) K/uL MPV (7.40-12.00) fL Neut % (Auto) (48.0-80.0) % Lymph % (Auto) (16.0-40.0) % [place] % (Auto) (0.0-15.0) % Eos % (Auto) (0.0-7.0) % Baso % (Auto) (0.0-1.5) % Neut # (Auto) (1.4-5.7) K/uL Lymph # (Auto) (0.6-2.4) K/uL [place] # (Auto) (0.0-0.8) K/uL Eos # (Auto) (0.0-0.7) K/uL Baso # (Auto) (0.0-0.1) K/uL Nucleated RBC % /100WBC Nucleated RBCs # K/uL Sodium (136-145) mmol/L Potassium (3.5-5.1) mmol/L Chloride (98-107) mmol/L Carbon Dioxide (21.0-32.0) mmol/L BUN (7.0-18.0) mg/dL Creatinine (0.6-1.0) mg/dL Est Cr Clr Drug Dosing mL/min Estimated GFR (MDRD) ml/min Glucose (74-106) mg/dL POC Glucose 158 H 189 H 234 H (70-99) mg/dL Calcium (8.5-10.1) mg/dL Magnesium (1.8-2.4) mg/dL 10/05/20 10/05/20 10/05/20 Range/Units 05:30 05:30 06:49 WBC 7.78 (4.0-11.0) K/uL RBC 3.63 L (4.30-5.90) M/uL Hgb 11.1 L (12.0-16.0) g/dL Hct 32.7 L (36.0-46.0) % MCV 90.1 (80.0-98.0) fL MCH 30.6 (27.0-32.0) pg MCHC 33.9 (31.0-37.0) g/dL RDW Std Deviation 43.9 (28.0-62.0) fl RDW Coeff of Aranza 13 (11.0-15.0) % Plt Count 187 (150-400) K/uL MPV 9.40 (7.40-12.00) fL Neut % (Auto) 64.6 (48.0-80.0) % Lymph % (Auto) 24.6 (16.0-40.0) % [place] % (Auto) 9.9 (0.0-15.0) % Eos % (Auto) 0.6 (0.0-7.0) % Baso % (Auto) 0.3 (0.0-1.5) % Neut # (Auto) 5.0 (1.4-5.7) K/uL Lymph # (Auto) 1.9 (0.6-2.4) K/uL [place] # (Auto) 0.8 (0.0-0.8) K/uL Eos # (Auto) 0.1 (0.0-0.7) K/uL Baso # (Auto) 0.0 (0.0-0.1) K/uL Nucleated RBC % 0.0 /100WBC Nucleated RBCs # 0 K/uL Sodium 137 (136-145) mmol/L Potassium 3.9 (3.5-5.1) mmol/L Chloride 103 (98-107) mmol/L Carbon Dioxide 25.7 (21.0-32.0) mmol/L BUN 13 (7.0-18.0) mg/dL Creatinine 1.1 H (0.6-1.0) mg/dL Est Cr Clr Drug Dosing 47.60 mL/min Estimated GFR (MDRD) 49.4 ml/min Glucose 118 H (74-106) mg/dL POC Glucose 120 H (70-99) mg/dL Calcium 7.2 L (8.5-10.1) mg/dL Magnesium 1.9 (1.8-2.4) mg/dL Wesley Results Last 24 Hours: Microbiology 10/03/20 22:45 Urine Culture - Final Urine, Bladder Escherichia Coli 10/03/20 23:04 Aerobic Blood Culture - Preliminary Blood - Venous - Lab Draw NO GROWTH AFTER 1 DAY Anaerobic Blood Culture - Preliminary NO GROWTH AFTER 1 DAY 10/03/20 22:50 Aerobic Blood Culture - Preliminary Blood - Venous NO GROWTH AFTER 1 DAY Anaerobic Blood Culture - Preliminary NO GROWTH AFTER 1 DAY Med Orders - Current: Current Medications Acetaminophen (Acetaminophen 325 Mg Tab) 650 mg PO Q6H PRN PRN Reason: Pain/Fever Albuterol/Ipratropium (Albuterol/Ipratropium 3.0-0.5 Mg/3 Ml Neb Soln) 3 ml NEB Q4HRRT PRN PRN Reason: Shortness of Breath Amitriptyline HCl (Amitriptyline 10 Mg Tab) 20 mg PO BEDTIME [facility] Last Admin: 10/04/20 22:06 Dose: 20 mg Documented by: Atorvastatin Calcium (Atorvastatin 40 Mg Tab) 80 mg PO BEDTIME [facility] Last Admin: 10/04/20 20:42 Dose: 80 mg Documented by: Cholecalciferol (Cholecalciferol (Vitamin D3) 25 Mcg Tab) 25 mcg PO DAILY [facility] Last Admin: 10/05/20 09:05 Dose: 25 mcg Documented by: Clopidogrel Bisulfate (Clopidogrel 75 Mg Tab) 75 mg PO DAILY [facility] Last Admin: 10/05/20 09:05 Dose: 75 mg Documented by: Dextrose/Water (50% Dextrose In Water 50 Ml Syringe) 50 ml IV ASDIRECTED PRN PRN Reason: Hypoglycemia Duloxetine HCl (Duloxetine 60 Mg Cap) 60 mg PO DAILY [facility] Last Admin: 10/05/20 09:05 Dose: 60 mg Documented by: Glucagon (Glucagon,Human Recombinant 1 Mg Vial) 1 mg IM ASDIRECTED PRN PRN Reason: Hypoglycemia Heparin Sodium (Porcine) (Heparin Sodium 5,000 Units/Ml Vial) 5,000 units SUBCUT Q8H [facility] Last Admin: 10/05/20 10:52 Dose: 5,000 units Documented by: Ceftriaxone Sodium/Dextrose 1 (gm/ Premix) 50 mls @ 100 mls/hr IV Q24H [facility] Last Admin: 10/05/20 00:17 Dose: 100 mls/hr Documented by: Insulin Aspart (Insulin Aspart 100 Units/Ml 3 Ml Pen) 0 unit SUBCUT TIDAC [facility]; Protocol Last Admin: 10/05/20 10:55 Dose: 2 units Documented by: Insulin Glargine (Insulin Glargine,Human Rec. Analog 100 Units/Ml 3 Ml Pen) 40 units SUBCUT BEDTIME [facility] Last Admin: 10/04/20 20:43 Dose: 40 units Documented by: Levothyroxine Sodium (Levothyroxine 50 Mcg Tab) 50 mcg PO ACBREAKFAST [facility] Last Admin: 10/05/20 07:58 Dose: 50 mcg Documented by: Morphine Sulfate (Morphine 2 Mg/Ml Syringe) 1 mg IVPUSH Q4H PRN PRN Reason: Pain (severe 7-10) Ondansetron HCl (Ondansetron 4 Mg/2 Ml Sdv) 4 mg IVPUSH Q6H PRN PRN Reason: Nausea Last Admin: 10/04/20 14:02 Dose: 4 mg Documented by: Fenofibrate Nanocrystallized [ Fenofibrate] 48 Mg Tablet 1 each PO DAILY [facility] Last Admin: 10/05/20 09:06 Dose: 1 each Documented by: Sodium Chloride (Sodium Chloride 0.9% 10 Ml Syringe) 10 ml FLUSH ASDIRECTED [facility] Discontinued Medications Acetaminophen (Acetaminophen 325 Mg Tab) 650 mg PO NOW ONE Stop: 10/04/20 01:02 Last Admin: 10/04/20 01:18 Dose: 650 mg Documented by: Amitriptyline HCl (Amitriptyline 10 Mg Tab) 10 mg PO BEDTIME [facility] Last Admin: 10/04/20 21:06 Dose: Not Given Documented by: Amitriptyline HCl (Amitriptyline 10 Mg Tab) 20 mg PO BEDTIME [facility] Sodium Chloride (Normal Saline) 1,000 mls @ 999 mls/hr IV BOLUS ONE; Protocol Stop: 10/04/20 00:06 Last Admin: 10/03/20 23:26 Dose: 999 mls/hr Documented by: Sodium Chloride (Normal Saline) 1,000 mls @ 999 mls/hr IV .Bolus ONE Stop: 10/04/20 00:10 Last Admin: 10/04/20 00:54 Dose: 999 mls/hr Documented by: Ceftriaxone Sodium/Dextrose 1 (gm/ Premix) 50 mls @ 100 mls/hr IV ONETIME ONE Stop: 10/03/20 23:39 Last Admin: 10/03/20 23:26 Dose: 100 mls/hr Documented by: Sodium Chloride (Normal Saline) 1,000 mls @ 999 mls/hr IV .Bolus ONE Stop: 10/04/20 01:58 Last Admin: 10/04/20 01:58 Dose: 999 mls/hr Documented by: Lactated Ringer's (Ringers, Lactated) 1,000 mls @ 999 mls/hr IV ONETIME ONE Stop: 10/04/20 03:35 Last Admin: 10/04/20 04:28 Dose: Not Given Documented by: Lactated Ringer's (Ringers, Lactated) 1,000 mls @ 125 mls/hr IV ASDIRECTED [facility] Last Admin: 10/04/20 03:48 Dose: 125 mls/hr Documented by: Lactated Ringer's (Ringers, Lactated) 500 mls @ 999 mls/hr IV ONETIME ONE Stop: 10/04/20 03:19 Last Admin: 10/04/20 03:11 Dose: 999 mls/hr Documented by: Magnesium Sulfate (Magnesium Sulfate In Water 2 Gm/50 Ml) 2 gm in 50 mls @ 50 mls/hr IV ONETIME ONE Stop: 10/04/20 11:56 Last Admin: 10/04/20 11:49 Dose: 50 mls/hr Documented by: Magnesium Oxide (Magnesium Oxide 400 Mg Tab) 800 mg PO ONETIME ONE Stop: 10/05/20 09:42 Last Admin: 10/05/20 09:57 Dose: 800 mg Documented by: Sodium Chloride (Sodium Chloride 0.9% 10 Ml Syringe) 10 ml FLUSH ASDIRECTED PRN PRN Reason: Keep Vein Open Last Admin: 10/03/20 23:28 Dose: 10 ml Documented by: Sodium Chloride (Sodium Chloride 0.9% 2.5 Ml Syringe) 2.5 ml FLUSH ASDIRECTED PRN PRN Reason: Keep Vein Open Last Admin: 10/03/20 23:28 Dose: 2.5 ml Documented by: Sodium Chloride (Sodium Chloride 0.9% 2.5 Ml Syringe) 2.5 ml FLUSH ASDIRECTED PRN PRN Reason: Keep Vein Open - Exam General: Cooperative, No Acute Distress, Lethargic Neck: Supple Lungs: Clear to Auscultation, Normal Respiratory Effort Cardiovascular: Regular Rate, Regular Rhythm GI/Abdominal Exam: Normal Bowel Sounds, Soft, Non-Tender Skin: Warm, Dry Neurological: No New Focal Deficit, Normal Speech, Normal Tone, Strength Equal Bilateral Psy/Mental Status: Normal Mood. No: Agitated, Suicidal Ideation, Homicidal Ideation, Hallucinations - Patient Data Lab Results Last 24 hrs: Laboratory Results - last 24 hr 10/04/20 10/04/20 10/04/20 Range/Units 11:46 17:32 20:39 WBC (4.0-11.0) K/uL RBC (4.30-5.90) M/uL Hgb (12.0-16.0) g/dL Hct (36.0-46.0) % MCV (80.0-98.0) fL MCH (27.0-32.0) pg MCHC (31.0-37.0) g/dL RDW Std Deviation (28.0-62.0) fl RDW Coeff of Aranza (11.0-15.0) % Plt Count (150-400) K/uL MPV (7.40-12.00) fL Neut % (Auto) (48.0-80.0) % Lymph % (Auto) (16.0-40.0) % [place] % (Auto) (0.0-15.0) % Eos % (Auto) (0.0-7.0) % Baso % (Auto) (0.0-1.5) % Neut # (Auto) (1.4-5.7) K/uL Lymph # (Auto) (0.6-2.4) K/uL [place] # (Auto) (0.0-0.8) K/uL Eos # (Auto) (0.0-0.7) K/uL Baso # (Auto) (0.0-0.1) K/uL Nucleated RBC % /100WBC Nucleated RBCs # K/uL Sodium (136-145) mmol/L Potassium (3.5-5.1) mmol/L Chloride (98-107) mmol/L Carbon Dioxide (21.0-32.0) mmol/L BUN (7.0-18.0) mg/dL Creatinine (0.6-1.0) mg/dL Est Cr Clr Drug Dosing mL/min Estimated GFR (MDRD) ml/min Glucose (74-106) mg/dL POC Glucose 158 H 189 H 234 H (70-99) mg/dL Calcium (8.5-10.1) mg/dL Magnesium (1.8-2.4) mg/dL 10/05/20 10/05/20 10/05/20 Range/Units 05:30 05:30 06:49 WBC 7.78 (4.0-11.0) K/uL RBC 3.63 L (4.30-5.90) M/uL Hgb 11.1 L (12.0-16.0) g/dL Hct 32.7 L (36.0-46.0) % MCV 90.1 (80.0-98.0) fL MCH 30.6 (27.0-32.0) pg MCHC 33.9 (31.0-37.0) g/dL RDW Std Deviation 43.9 (28.0-62.0) fl RDW Coeff of Aranza 13 (11.0-15.0) % Plt Count 187 (150-400) K/uL MPV 9.40 (7.40-12.00) fL Neut % (Auto) 64.6 (48.0-80.0) % Lymph % (Auto) 24.6 (16.0-40.0) % [place] % (Auto) 9.9 (0.0-15.0) % Eos % (Auto) 0.6 (0.0-7.0) % Baso % (Auto) 0.3 (0.0-1.5) % Neut # (Auto) 5.0 (1.4-5.7) K/uL Lymph # (Auto) 1.9 (0.6-2.4) K/uL [place] # (Auto) 0.8 (0.0-0.8) K/uL Eos # (Auto) 0.1 (0.0-0.7) K/uL Baso # (Auto) 0.0 (0.0-0.1) K/uL Nucleated RBC % 0.0 /100WBC Nucleated RBCs # 0 K/uL Sodium 137 (136-145) mmol/L Potassium 3.9 (3.5-5.1) mmol/L Chloride 103 (98-107) mmol/L Carbon Dioxide 25.7 (21.0-32.0) mmol/L BUN 13 (7.0-18.0) mg/dL Creatinine 1.1 H (0.6-1.0) mg/dL Est Cr Clr Drug Dosing 47.60 mL/min Estimated GFR (MDRD) 49.4 ml/min Glucose 118 H (74-106) mg/dL POC Glucose 120 H (70-99) mg/dL Calcium 7.2 L (8.5-10.1) mg/dL Magnesium 1.9 (1.8-2.4) mg/dL Result Diagrams: 10/05/20 05:30 10/05/20 05:30 Wesley Results Last 24 hrs: Microbiology 10/03/20 22:45 Urine Culture - Final Urine, Bladder Escherichia Coli 10/03/20 23:04 Aerobic Blood Culture - Preliminary Blood - Venous - Lab Draw NO GROWTH AFTER 1 DAY Anaerobic Blood Culture - Preliminary NO GROWTH AFTER 1 DAY 10/03/20 22:50 Aerobic Blood Culture - Preliminary Blood - Venous NO GROWTH AFTER 1 DAY Anaerobic Blood Culture - Preliminary NO GROWTH AFTER 1 DAY Sepsis Event Note - Evaluation Sepsis Screening Result: No Definite Risk - Focused Exam Vital Signs: Vital Signs Temp Pulse Resp BP Pulse Ox 10/05/20 08:00 36.3 C 91 18 131/63 92 L 10/05/20 02:36 37.1 C 89 17 108/58 L 93 L 10/05/20 00:23 37.0 C 89 18 107/56 L 96 - Problem List & Annotations (1) Complicated UTI (urinary tract infection) SNOMED Code(s): 58110475 Code(s): N39.0 - URINARY TRACT INFECTION, SITE NOT SPECIFIED Status: Acute Current Visit: Yes (2) DM type 2 (diabetes mellitus, type 2) SNOMED Code(s): 73043997 Code(s): E11.9 - TYPE 2 DIABETES MELLITUS WITHOUT COMPLICATIONS Status: Acute Current Visit: Yes Qualifiers: Diabetes mellitus middle or intermediate school principal insulin use: with middle or intermediate school principal use Diabetes mellitus complication status: with circulatory complication Diabetes mellitus complication detail: with other circulatory complications Qualified Code(s): E11.59 - Type 2 diabetes mellitus with other circulatory complications; Z79.4 - alf (current) use of insulin (3) Dehydration SNOMED Code(s): 88921860 Code(s): E86.0 - DEHYDRATION Status: Acute Current Visit: Yes (4) Fall in elderly patient SNOMED Code(s): 417671492 Code(s): R29.6 - REPEATED FALLS Status: Acute Current Visit: Yes (5) Sepsis SNOMED Code(s): 34834734 Code(s): A41.9 - SEPSIS, UNSPECIFIED ORGANISM Status: Acute Current Visit: Yes Qualifiers: Sepsis type: sepsis due to unspecified organism Sepsis acute organ dysfunction status: without acute organ dysfunction Qualified Code(s): A41.9 - Sepsis, unspecified organism (6) TIA (transient ischemic attack) SNOMED Code(s): 069803690 Code(s): G45.9 - TRANSIENT CEREBRAL ISCHEMIC ATTACK, UNSPECIFIED Status: Chronic Current Visit: Yes (7) CAD (coronary artery disease) SNOMED Code(s): 91550420 Code(s): I25.10 - ATHSCL HEART DISEASE OF [place] CORONARY ARTERY W/O ANG PCTRS Status: Chronic Priority: Medium Current Visit: No Qualifiers: Coronary Disease-Associated Artery/Lesion type: unspecified vessel or lesion type [place] vs. transplanted heart: [place] heart Associated angina: without angina Qualified Code(s): I25.10 - Atherosclerotic heart disease of [place] coronary artery without angina pectoris (8) HTN (hypertension) SNOMED Code(s): 05290038 Code(s): I10 - ESSENTIAL (PRIMARY) HYPERTENSION Status: Chronic Priority: Medium Current Visit: No Qualifiers: Hypertension type: unspecified Qualified Code(s): I10 - Essential (primary) hypertension - Problem List Review Problem List Initiated/Reviewed/Updated: Yes - My Orders Last 24 Hours: My Active Orders 10/04/20 22:00 Amitriptyline [Elavil] 20 mg PO BEDTIME 10/04/20 23:00 cefTRIAXone [Rocephin in Dextrose,Iso-Osm 1 GM/50 ML] 1 gm Premix Bag 1 bag IV Q24H - Plan Plan:: This 70-year-old female admitted with sepsis secondary to complicated UTI, fall and generalized weakness 1. Sepsis secondary to complicated UTI -resolved -Continue Rocephin 1 g -Blood cultures pending, and urine cultures noted, will switched to oral when po intake is better -UTI treated with Bactrim as an outpatient patient failed outpatient management. Cipro was ordered but patient never took this medication. 2. KIM -Likely secondary to dehydration and sepsis -Improved this morning with IV fluid resuscitation. -We will hold Lasix and losartan -Baseline Creatinine around 0.8 - 1.0 3. Falls/generalized weakness -Likely secondary to acute illness -Consult PT to evaluate and treat 4. DM type II -NovoLog sliding scale with meals -Check blood sugars 3 times daily before meals and as needed -Continue long-acting insulin in the evening will decrease dose from 50 units to 40 units nightly. 5. CAD/TIAs -Continue Plavix -Hold Lasix and losartan 6. Hypothyroidism -Continue levothyroxine VTE prophylaxis: Heparin CODE STATUS: DNR, would be okay with intubation if respiratory failure were to occur. Dispo: We will make patient inpatient due to severity of illness with sepsis and complicated UTI will likely need greater than 2 midnight stay. 2 to 3 days pending improvement and culture results.
[2020-10-05] MEDS: Amitriptyline 10 MG Tab PO SCH (20:54)
[2020-10-05] MEDS: atorvaSTATin 40 MG Tab PO SCH (20:55)
[2020-10-05] MEDS: Insulin Glargine,Human Rec. Analog 100 Units/ML 3 ML Pen SUBCUT SCH (20:56)
[2020-10-05] MEDS ORDERED: Amitriptyline 10 MG Tab PO SCH (21:00)
[2020-10-06] MEDS: Heparin Sodium 5,000 Units/ML Vial SUBCUT SCH ×3 (03:39→17:58)
[2020-10-06] MEDS: Levothyroxine 50 MCG Tab PO SCH (06:43)
[2020-10-06 06:50] LABS: CARBON DIOXIDE,CO2 27.5 mmol/L (21.0-32.0)
[2020-10-06 06:59] LABS: POTASSIUM,K 3.8 mmol/L (3.5-5.1)
[2020-10-06] MEDS: Insulin Aspart 100 Units/ML 3 ML Pen SUBCUT SCH ×3 (07:32→17:56)
[2020-10-06] MEDS: DULoxetine 60 MG Cap PO SCH (08:35)
[2020-10-06] MEDS: Cholecalciferol (Vitamin D3) 25 MCG Tab PO SCH (08:35)
[2020-10-06] MEDS: Clopidogrel 75 MG Tab PO SCH (08:36)
[2020-10-06] MEDS: FENOFIBRATE NANOCRYSTALLIZED 48 MG PO SCH (09:29)
--- NOTE | 2020-10-06 13:41 | PCM.PN ---
- General Info Date of Service: 10/06/20 - Review of Systems Systems Review Comment:: feeling better, does not feel strong enough to go home. - Patient Data Vitals - Most Recent: Last Vital Signs Temp 36.3 C 10/06/20 11:30 Pulse 73 10/06/20 11:30 Resp 12 10/06/20 11:30 BP 104/54 L 10/06/20 11:30 Pulse Ox 94 L 10/06/20 11:30 Weight - Most Recent: 95.254 kg I&O - Last 24 Hours: Intake & Output 10/05/20 10/06/20 10/06/20 22:59 06:59 14:59 Intake Total 750 350 Output Total 850 300 Balance -100 50 Lab Results Last 24 Hours: Laboratory Results - last 24 hr 10/05/20 10/05/20 10/06/20 Range/Units 17:42 20:53 06:05 WBC 5.48 (4.0-11.0) K/uL RBC 3.72 L (4.30-5.90) M/uL Hgb 11.4 L (12.0-16.0) g/dL Hct 33.5 L (36.0-46.0) % MCV 90.1 (80.0-98.0) fL MCH 30.6 (27.0-32.0) pg MCHC 34.0 (31.0-37.0) g/dL RDW Std Deviation 43.7 (28.0-62.0) fl RDW Coeff of Aranza 13 (11.0-15.0) % Plt Count 190 (150-400) K/uL MPV 9.70 (7.40-12.00) fL Neut % (Auto) 46.7 L (48.0-80.0) % Lymph % (Auto) 37.6 (16.0-40.0) % [place] % (Auto) 14.1 (0.0-15.0) % Eos % (Auto) 1.1 (0.0-7.0) % Baso % (Auto) 0.5 (0.0-1.5) % Neut # (Auto) 2.6 (1.4-5.7) K/uL Lymph # (Auto) 2.1 (0.6-2.4) K/uL [place] # (Auto) 0.8 (0.0-0.8) K/uL Eos # (Auto) 0.1 (0.0-0.7) K/uL Baso # (Auto) 0.0 (0.0-0.1) K/uL Nucleated RBC % 0.0 /100WBC Nucleated RBCs # 0 K/uL Sodium (136-145) mmol/L Potassium (3.5-5.1) mmol/L Chloride (98-107) mmol/L Carbon Dioxide (21.0-32.0) mmol/L BUN (7.0-18.0) mg/dL Creatinine (0.6-1.0) mg/dL Est Cr Clr Drug Dosing mL/min Estimated GFR (MDRD) ml/min Glucose (74-106) mg/dL POC Glucose 145 H 168 H (70-99) mg/dL Calcium (8.5-10.1) mg/dL Phosphorus (2.6-4.7) mg/dL Magnesium (1.8-2.4) mg/dL 10/06/20 10/06/20 Range/Units 06:05 11:13 WBC (4.0-11.0) K/uL RBC (4.30-5.90) M/uL Hgb (12.0-16.0) g/dL Hct (36.0-46.0) % MCV (80.0-98.0) fL MCH (27.0-32.0) pg MCHC (31.0-37.0) g/dL RDW Std Deviation (28.0-62.0) fl RDW Coeff of Aranza (11.0-15.0) % Plt Count (150-400) K/uL MPV (7.40-12.00) fL Neut % (Auto) (48.0-80.0) % Lymph % (Auto) (16.0-40.0) % [place] % (Auto) (0.0-15.0) % Eos % (Auto) (0.0-7.0) % Baso % (Auto) (0.0-1.5) % Neut # (Auto) (1.4-5.7) K/uL Lymph # (Auto) (0.6-2.4) K/uL [place] # (Auto) (0.0-0.8) K/uL Eos # (Auto) (0.0-0.7) K/uL Baso # (Auto) (0.0-0.1) K/uL Nucleated RBC % /100WBC Nucleated RBCs # K/uL Sodium 139 (136-145) mmol/L Potassium 3.8 (3.5-5.1) mmol/L Chloride 105 (98-107) mmol/L Carbon Dioxide 27.5 (21.0-32.0) mmol/L BUN 12 (7.0-18.0) mg/dL Creatinine 1.0 (0.6-1.0) mg/dL Est Cr Clr Drug Dosing 52.36 mL/min Estimated GFR (MDRD) 55.1 ml/min Glucose 75 (74-106) mg/dL POC Glucose 161 H (70-99) mg/dL Calcium 7.4 L (8.5-10.1) mg/dL Phosphorus 3.4 (2.6-4.7) mg/dL Magnesium 1.8 (1.8-2.4) mg/dL [facility] Results Last 24 Hours: Microbiology 10/03/20 23:04 Aerobic Blood Culture - Preliminary Blood - Venous - Lab Draw NO GROWTH AFTER 2 DAYS Anaerobic Blood Culture - Preliminary NO GROWTH AFTER 2 DAYS 10/03/20 22:50 Aerobic Blood Culture - Preliminary Blood - Venous NO GROWTH AFTER 2 DAYS Anaerobic Blood Culture - Preliminary NO GROWTH AFTER 2 DAYS Med Orders - Current: Current Medications Acetaminophen (Acetaminophen 325 Mg Tab) 650 mg PO Q6H PRN PRN Reason: Pain/Fever Albuterol/Ipratropium (Albuterol/Ipratropium 3.0-0.5 Mg/3 Ml Neb Soln) 3 ml NEB Q4HRRT PRN PRN Reason: Shortness of Breath Amitriptyline HCl (Amitriptyline 10 Mg Tab) 20 mg PO BEDTIME [facility] Last Admin: 10/05/20 20:54 Dose: 20 mg Documented by: Atorvastatin Calcium (Atorvastatin 40 Mg Tab) 80 mg PO BEDTIME [facility] Last Admin: 10/05/20 20:55 Dose: 80 mg Documented by: Cholecalciferol (Cholecalciferol (Vitamin D3) 25 Mcg Tab) 25 mcg PO DAILY [facility] Last Admin: 10/06/20 08:35 Dose: 25 mcg Documented by: Clopidogrel Bisulfate (Clopidogrel 75 Mg Tab) 75 mg PO DAILY [facility] Last Admin: 10/06/20 08:36 Dose: 75 mg Documented by: Dextrose/Water (50% Dextrose In Water 50 Ml Syringe) 50 ml IV ASDIRECTED PRN PRN Reason: Hypoglycemia Duloxetine HCl (Duloxetine 60 Mg Cap) 60 mg PO DAILY [facility] Last Admin: 10/06/20 08:35 Dose: 60 mg Documented by: Glucagon (Glucagon,Human Recombinant 1 Mg Vial) 1 mg IM ASDIRECTED PRN PRN Reason: Hypoglycemia Heparin Sodium (Porcine) (Heparin Sodium 5,000 Units/Ml Vial) 5,000 units SUBCUT Q8H [facility] Last Admin: 10/06/20 11:32 Dose: 5,000 units Documented by: Ceftriaxone Sodium/Dextrose 1 (gm/ Premix) 50 mls @ 100 mls/hr IV Q24H [facility] Last Admin: 10/05/20 23:22 Dose: 100 mls/hr Documented by: Insulin Aspart (Insulin Aspart 100 Units/Ml 3 Ml Pen) 0 unit SUBCUT TIDAC [facility]; Protocol Last Admin: 10/06/20 11:33 Dose: 2 units Documented by: Insulin Glargine (Insulin Glargine,Human Rec. Analog 100 Units/Ml 3 Ml Pen) 40 units SUBCUT BEDTIME [facility] Last Admin: 10/05/20 20:56 Dose: 40 units Documented by: Levothyroxine Sodium (Levothyroxine 50 Mcg Tab) 50 mcg PO ACBREAKFAST [facility] Last Admin: 10/06/20 06:43 Dose: 50 mcg Documented by: Morphine Sulfate (Morphine 2 Mg/Ml Syringe) 1 mg IVPUSH Q4H PRN PRN Reason: Pain (severe 7-10) Ondansetron HCl (Ondansetron 4 Mg/2 Ml Sdv) 4 mg IVPUSH Q6H PRN PRN Reason: Nausea Last Admin: 10/04/20 14:02 Dose: 4 mg Documented by: Fenofibrate Nanocrystallized [ Fenofibrate] 48 Mg Tablet 1 each PO DAILY [facility] Last Admin: 10/06/20 09:29 Dose: Not Given Documented by: Sodium Chloride (Sodium Chloride 0.9% 10 Ml Syringe) 10 ml FLUSH ASDIRECTED [facility] Discontinued Medications Acetaminophen (Acetaminophen 325 Mg Tab) 650 mg PO NOW ONE Stop: 10/04/20 01:02 Last Admin: 10/04/20 01:18 Dose: 650 mg Documented by: Amitriptyline HCl (Amitriptyline 10 Mg Tab) 10 mg PO BEDTIME [facility] Last Admin: 10/04/20 21:06 Dose: Not Given Documented by: Amitriptyline HCl (Amitriptyline 10 Mg Tab) 20 mg PO BEDTIME [facility] Sodium Chloride (Normal Saline) 1,000 mls @ 999 mls/hr IV BOLUS ONE; Protocol Stop: 10/04/20 00:06 Last Admin: 10/03/20 23:26 Dose: 999 mls/hr Documented by: Sodium Chloride (Normal Saline) 1,000 mls @ 999 mls/hr IV .Bolus ONE Stop: 10/04/20 00:10 Last Admin: 10/04/20 00:54 Dose: 999 mls/hr Documented by: Ceftriaxone Sodium/Dextrose 1 (gm/ Premix) 50 mls @ 100 mls/hr IV ONETIME ONE Stop: 10/03/20 23:39 Last Admin: 10/03/20 23:26 Dose: 100 mls/hr Documented by: Sodium Chloride (Normal Saline) 1,000 mls @ 999 mls/hr IV .Bolus ONE Stop: 10/04/20 01:58 Last Admin: 10/04/20 01:58 Dose: 999 mls/hr Documented by: Lactated Ringer's (Ringers, Lactated) 1,000 mls @ 999 mls/hr IV ONETIME ONE Stop: 10/04/20 03:35 Last Admin: 10/04/20 04:28 Dose: Not Given Documented by: Lactated Ringer's (Ringers, Lactated) 1,000 mls @ 125 mls/hr IV ASDIRECTED [facility] Last Admin: 10/04/20 03:48 Dose: 125 mls/hr Documented by: Lactated Ringer's (Ringers, Lactated) 500 mls @ 999 mls/hr IV ONETIME ONE Stop: 10/04/20 03:19 Last Admin: 10/04/20 03:11 Dose: 999 mls/hr Documented by: Magnesium Sulfate (Magnesium Sulfate In Water 2 Gm/50 Ml) 2 gm in 50 mls @ 50 mls/hr IV ONETIME ONE Stop: 10/04/20 11:56 Last Admin: 10/04/20 11:49 Dose: 50 mls/hr Documented by: Magnesium Oxide (Magnesium Oxide 400 Mg Tab) 800 mg PO ONETIME ONE Stop: 10/05/20 09:42 Last Admin: 10/05/20 09:57 Dose: 800 mg Documented by: Sodium Chloride (Sodium Chloride 0.9% 10 Ml Syringe) 10 ml FLUSH ASDIRECTED PRN PRN Reason: Keep Vein Open Last Admin: 10/03/20 23:28 Dose: 10 ml Documented by: Sodium Chloride (Sodium Chloride 0.9% 2.5 Ml Syringe) 2.5 ml FLUSH ASDIRECTED PRN PRN Reason: Keep Vein Open Last Admin: 10/03/20 23:28 Dose: 2.5 ml Documented by: Sodium Chloride (Sodium Chloride 0.9% 2.5 Ml Syringe) 2.5 ml FLUSH ASDIRECTED PRN PRN Reason: Keep Vein Open - Exam General: Alert, Oriented Neck: Supple Lungs: Clear to Auscultation, Normal Respiratory Effort Cardiovascular: Regular Rate, Regular Rhythm GI/Abdominal Exam: Soft, Non-Tender, No Distention Extremities: Non-Tender, No Pedal Edema Skin: Warm, Dry, Intact Neurological: No New Focal Deficit - Patient Data Lab Results Last 24 hrs: Laboratory Results - last 24 hr 10/05/20 10/05/20 10/06/20 Range/Units 17:42 20:53 06:05 WBC 5.48 (4.0-11.0) K/uL RBC 3.72 L (4.30-5.90) M/uL Hgb 11.4 L (12.0-16.0) g/dL Hct 33.5 L (36.0-46.0) % MCV 90.1 (80.0-98.0) fL MCH 30.6 (27.0-32.0) pg MCHC 34.0 (31.0-37.0) g/dL RDW Std Deviation 43.7 (28.0-62.0) fl RDW Coeff of Aranza 13 (11.0-15.0) % Plt Count 190 (150-400) K/uL MPV 9.70 (7.40-12.00) fL Neut % (Auto) 46.7 L (48.0-80.0) % Lymph % (Auto) 37.6 (16.0-40.0) % [place] % (Auto) 14.1 (0.0-15.0) % Eos % (Auto) 1.1 (0.0-7.0) % Baso % (Auto) 0.5 (0.0-1.5) % Neut # (Auto) 2.6 (1.4-5.7) K/uL Lymph # (Auto) 2.1 (0.6-2.4) K/uL [place] # (Auto) 0.8 (0.0-0.8) K/uL Eos # (Auto) 0.1 (0.0-0.7) K/uL Baso # (Auto) 0.0 (0.0-0.1) K/uL Nucleated RBC % 0.0 /100WBC Nucleated RBCs # 0 K/uL Sodium (136-145) mmol/L Potassium (3.5-5.1) mmol/L Chloride (98-107) mmol/L Carbon Dioxide (21.0-32.0) mmol/L BUN (7.0-18.0) mg/dL Creatinine (0.6-1.0) mg/dL Est Cr Clr Drug Dosing mL/min Estimated GFR (MDRD) ml/min Glucose (74-106) mg/dL POC Glucose 145 H 168 H (70-99) mg/dL Calcium (8.5-10.1) mg/dL Phosphorus (2.6-4.7) mg/dL Magnesium (1.8-2.4) mg/dL 10/06/20 10/06/20 Range/Units 06:05 11:13 WBC (4.0-11.0) K/uL RBC (4.30-5.90) M/uL Hgb (12.0-16.0) g/dL Hct (36.0-46.0) % MCV (80.0-98.0) fL MCH (27.0-32.0) pg MCHC (31.0-37.0) g/dL RDW Std Deviation (28.0-62.0) fl RDW Coeff of Aranza (11.0-15.0) % Plt Count (150-400) K/uL MPV (7.40-12.00) fL Neut % (Auto) (48.0-80.0) % Lymph % (Auto) (16.0-40.0) % [place] % (Auto) (0.0-15.0) % Eos % (Auto) (0.0-7.0) % Baso % (Auto) (0.0-1.5) % Neut # (Auto) (1.4-5.7) K/uL Lymph # (Auto) (0.6-2.4) K/uL [place] # (Auto) (0.0-0.8) K/uL Eos # (Auto) (0.0-0.7) K/uL Baso # (Auto) (0.0-0.1) K/uL Nucleated RBC % /100WBC Nucleated RBCs # K/uL Sodium 139 (136-145) mmol/L Potassium 3.8 (3.5-5.1) mmol/L Chloride 105 (98-107) mmol/L Carbon Dioxide 27.5 (21.0-32.0) mmol/L BUN 12 (7.0-18.0) mg/dL Creatinine 1.0 (0.6-1.0) mg/dL Est Cr Clr Drug Dosing 52.36 mL/min Estimated GFR (MDRD) 55.1 ml/min Glucose 75 (74-106) mg/dL POC Glucose 161 H (70-99) mg/dL Calcium 7.4 L (8.5-10.1) mg/dL Phosphorus 3.4 (2.6-4.7) mg/dL Magnesium 1.8 (1.8-2.4) mg/dL Result Diagrams: 10/06/20 06:05 10/06/20 06:05 [facility] Results Last 24 hrs: Microbiology 10/03/20 23:04 Aerobic Blood Culture - Preliminary Blood - Venous - Lab Draw NO GROWTH AFTER 2 DAYS Anaerobic Blood Culture - Preliminary NO GROWTH AFTER 2 DAYS 10/03/20 22:50 Aerobic Blood Culture - Preliminary Blood - Venous NO GROWTH AFTER 2 DAYS Anaerobic Blood Culture - Preliminary NO GROWTH AFTER 2 DAYS Sepsis Event Note - Evaluation Sepsis Screening Result: No Definite Risk - Focused Exam Vital Signs: Vital Signs Temp Pulse Resp BP Pulse Ox 10/06/20 11:30 36.3 C 73 12 104/54 L 94 L 10/06/20 08:15 35.3 C L 86 14 97/58 L 95 10/06/20 03:38 36.2 C 82 19 134/70 94 L - Problem List Review Problem List Initiated/Reviewed/Updated: Yes - Plan Plan:: This 70-year-old female admitted with sepsis secondary to complicated UTI, fall and generalized weakness 1. Sepsis secondary to complicated UTI -Continue Rocephin -Blood cultures growing E.coli 2. KIM -Likely secondary to dehydration and sepsis -Creatinine has improved to 1.0 -We will hold Lasix and losartan -Baseline Creatinine around 0.8 - 1.0 3. Falls/generalized weakness -Likely secondary to acute illness -Consult PT to evaluate and treat 4. DM type II -NovoLog sliding scale with meals -Check blood sugars 3 times daily before meals and as needed -Continue long-acting insulin in the evening will decrease dose from 50 units to 40 units nightly. 5. CAD/TIAs -Continue Plavix -Hold Lasix and losartan 6. Hypothyroidism -Continue levothyroxine VTE prophylaxis: Heparin CODE STATUS: DNR, would be okay with intubation if respiratory failure were to occur. Dispo: likely home tomorrow.
[2020-10-06] MEDS: Acetaminophen 325 MG Tab PO PRN ×2 (15:58→22:15)
[2020-10-06] MEDS: atorvaSTATin 40 MG Tab PO SCH (21:24)
[2020-10-06] MEDS: Insulin Glargine,Human Rec. Analog 100 Units/ML 3 ML Pen SUBCUT SCH (21:25)
[2020-10-06] MEDS: Amitriptyline 10 MG Tab PO SCH (21:25)
[2020-10-06] MEDS: cefTRIAXone 1 GM in Premix Bag 1 BAG IV SCH (23:54)
[2020-10-07] MEDS: Heparin Sodium 5,000 Units/ML Vial SUBCUT SCH ×3 (04:25→18:29)
[2020-10-07 06:48] LABS: CARBON DIOXIDE,CO2 28.1 mmol/L (21.0-32.0)
[2020-10-07] MEDS: Insulin Aspart 100 Units/ML 3 ML Pen SUBCUT SCH ×3 (07:25→18:20)
[2020-10-07] MEDS: Levothyroxine 50 MCG Tab PO SCH (08:16)
[2020-10-07] MEDS: DULoxetine 60 MG Cap PO SCH (08:17)
[2020-10-07] MEDS: Cholecalciferol (Vitamin D3) 25 MCG Tab PO SCH (08:17)
[2020-10-07] MEDS: Clopidogrel 75 MG Tab PO SCH (08:17)
[2020-10-07] MEDS: FENOFIBRATE NANOCRYSTALLIZED 48 MG PO SCH (08:18)
--- NOTE | 2020-10-07 13:46 | PCM.PN ---
- General Info Date of Service: 10/07/20 Admission Dx/Problem (Free Text): Admission Diagnosis/Problem Admission Diagnosis/Problem Sepsis Subjective Update: Reports she is feeling stronger today denies any chest pain shortness of breath continues to feel slightly weak but improved. Some would like her to stay 1 more day to improve conditioning. We did discuss she will need antibiotics beyond discharge to continue to treat complicated UTI. Functional Status: Reports: Pain Controlled, Tolerating Diet, Ambulating, Urinating - Review of Systems General: Reports: Weakness (But improving generalized.) HEENT: Reports: No Symptoms. Denies: Headaches, Sore Throat, Visual Changes Pulmonary: Reports: No Symptoms. Denies: Shortness of Breath Cardiovascular: Reports: No Symptoms. Denies: Chest Pain Gastrointestinal: Denies: Abdominal Pain, Nausea, Vomiting Genitourinary: Reports: No Symptoms. Denies: Dysuria, Frequency Musculoskeletal: Reports: No Symptoms Skin: Reports: No Symptoms Neurological: Reports: No Symptoms Psychiatric: Reports: No Symptoms - Patient Data Vitals - Most Recent: Last Vital Signs Temp 97.0 F 10/07/20 12:10 Pulse 80 10/07/20 12:10 Resp 16 10/07/20 12:10 BP 113/69 10/07/20 12:10 Pulse Ox 97 10/07/20 12:10 Weight - Most Recent: 95.254 kg I&O - Last 24 Hours: Intake & Output 10/06/20 10/07/20 10/07/20 22:59 06:59 14:59 Intake Total 400 500 Output Total 650 Balance 400 -150 Lab Results Last 24 Hours: Laboratory Results - last 24 hr 10/06/20 10/06/20 10/07/20 Range/Units 15:56 21:18 06:10 WBC 4.57 (4.0-11.0) K/uL RBC 3.86 L (4.30-5.90) M/uL Hgb 11.7 L (12.0-16.0) g/dL Hct 34.7 L (36.0-46.0) % MCV 89.9 (80.0-98.0) fL MCH 30.3 (27.0-32.0) pg MCHC 33.7 (31.0-37.0) g/dL RDW Std Deviation 42.8 (28.0-62.0) fl RDW Coeff of Aranza 13 (11.0-15.0) % Plt Count 191 (150-400) K/uL MPV 10.00 (7.40-12.00) fL Neut % (Auto) 34.7 L (48.0-80.0) % Lymph % (Auto) 47.3 H (16.0-40.0) % [place] % (Auto) 15.1 H (0.0-15.0) % Eos % (Auto) 2.2 (0.0-7.0) % Baso % (Auto) 0.7 (0.0-1.5) % Neut # (Auto) 1.6 (1.4-5.7) K/uL Lymph # (Auto) 2.2 (0.6-2.4) K/uL [place] # (Auto) 0.7 (0.0-0.8) K/uL Eos # (Auto) 0.1 (0.0-0.7) K/uL Baso # (Auto) 0.0 (0.0-0.1) K/uL Nucleated RBC % 0.0 /100WBC Nucleated RBCs # 0 K/uL Sodium (136-145) mmol/L Potassium (3.5-5.1) mmol/L Chloride (98-107) mmol/L Carbon Dioxide (21.0-32.0) mmol/L BUN (7.0-18.0) mg/dL Creatinine (0.6-1.0) mg/dL Est Cr Clr Drug Dosing mL/min Estimated GFR (MDRD) ml/min Glucose (74-106) mg/dL POC Glucose 146 H 169 H (70-99) mg/dL Calcium (8.5-10.1) mg/dL Phosphorus (2.6-4.7) mg/dL Magnesium (1.8-2.4) mg/dL 10/07/20 10/07/20 10/07/20 Range/Units 06:10 06:58 11:44 WBC (4.0-11.0) K/uL RBC (4.30-5.90) M/uL Hgb (12.0-16.0) g/dL Hct (36.0-46.0) % MCV (80.0-98.0) fL MCH (27.0-32.0) pg MCHC (31.0-37.0) g/dL RDW Std Deviation (28.0-62.0) fl RDW Coeff of [place]anza (11.0-15.0) % Plt Count (150-400) K/uL MPV (7.40-12.00) fL Neut % (Auto) (48.0-80.0) % Lymph % (Auto) (16.0-40.0) % [place] % (Auto) (0.0-15.0) % Eos % (Auto) (0.0-7.0) % Baso % (Auto) (0.0-1.5) % Neut # (Auto) (1.4-5.7) K/uL Lymph # (Auto) (0.6-2.4) K/uL [place] # (Auto) (0.0-0.8) K/uL Eos # (Auto) (0.0-0.7) K/uL Baso # (Auto) (0.0-0.1) K/uL Nucleated RBC % /100WBC Nucleated RBCs # K/uL Sodium 141 (136-145) mmol/L Potassium 4.0 (3.5-5.1) mmol/L Chloride 106 (98-107) mmol/L Carbon Dioxide 28.1 (21.0-32.0) mmol/L BUN 14 (7.0-18.0) mg/dL Creatinine 1.1 H (0.6-1.0) mg/dL Est Cr Clr Drug Dosing 47.60 mL/min Estimated GFR (MDRD) 49.4 ml/min Glucose 124 H (74-106) mg/dL POC Glucose 122 H 142 H (70-99) mg/dL Calcium 7.9 L (8.5-10.1) mg/dL Phosphorus 4.2 (2.6-4.7) mg/dL Magnesium 1.9 (1.8-2.4) mg/dL Wesley Results Last 24 Hours: Microbiology 10/03/20 23:04 Aerobic Blood Culture - Preliminary Blood - Venous - Lab Draw NO GROWTH AFTER 3 DAYS Anaerobic Blood Culture - Preliminary NO GROWTH AFTER 3 DAYS 10/03/20 22:50 Aerobic Blood Culture - Preliminary Blood - Venous NO GROWTH AFTER 3 DAYS Anaerobic Blood Culture - Preliminary NO GROWTH AFTER 3 DAYS Med Orders - Current: Current Medications Acetaminophen (Acetaminophen 325 Mg Tab) 650 mg PO Q6H PRN PRN Reason: Pain/Fever Last Admin: 10/06/20 22:15 Dose: 650 mg Documented by: Albuterol/Ipratropium (Albuterol/Ipratropium 3.0-0.5 Mg/3 Ml Neb Soln) 3 ml NEB Q4HRRT PRN PRN Reason: Shortness of Breath Amitriptyline HCl (Amitriptyline 10 Mg Tab) 20 mg PO BEDTIME [facility] Last Admin: 10/06/20 21:25 Dose: 20 mg Documented by: Atorvastatin Calcium (Atorvastatin 40 Mg Tab) 80 mg PO BEDTIME [facility] Last Admin: 10/06/20 21:24 Dose: 80 mg Documented by: Cefdinir (Cefdinir 300 Mg Cap) 300 mg PO BID [facility] Cholecalciferol (Cholecalciferol (Vitamin D3) 25 Mcg Tab) 25 mcg PO DAILY [facility] Last Admin: 10/07/20 08:17 Dose: 25 mcg Documented by: Clopidogrel Bisulfate (Clopidogrel 75 Mg Tab) 75 mg PO DAILY [facility] Last Admin: 10/07/20 08:17 Dose: 75 mg Documented by: Dextrose/Water (50% Dextrose In Water 50 Ml Syringe) 50 ml IV ASDIRECTED PRN PRN Reason: Hypoglycemia Duloxetine HCl (Duloxetine 60 Mg Cap) 60 mg PO DAILY [facility] Last Admin: 10/07/20 08:17 Dose: 60 mg Documented by: Glucagon (Glucagon,Human Recombinant 1 Mg Vial) 1 mg IM ASDIRECTED PRN PRN Reason: Hypoglycemia Heparin Sodium (Porcine) (Heparin Sodium 5,000 Units/Ml Vial) 5,000 units SUBCUT Q8H [facility] Last Admin: 10/07/20 11:51 Dose: 5,000 units Documented by: Insulin Aspart (Insulin Aspart 100 Units/Ml 3 Ml Pen) 0 unit SUBCUT TIDAC [facility]; Protocol Last Admin: 10/07/20 11:59 Dose: Not Given Documented by: Insulin Glargine (Insulin Glargine,Human Rec. Analog 100 Units/Ml 3 Ml Pen) 40 units SUBCUT BEDTIME [facility] Last Admin: 10/06/20 21:25 Dose: 40 units Documented by: Levothyroxine Sodium (Levothyroxine 50 Mcg Tab) 50 mcg PO ACBREAKFAST [facility] Last Admin: 10/07/20 08:16 Dose: 50 mcg Documented by: Morphine Sulfate (Morphine 2 Mg/Ml Syringe) 1 mg IVPUSH Q4H PRN PRN Reason: Pain (severe 7-10) Ondansetron HCl (Ondansetron 4 Mg/2 Ml Sdv) 4 mg IVPUSH Q6H PRN PRN Reason: Nausea Last Admin: 10/04/20 14:02 Dose: 4 mg Documented by: Fenofibrate Nanocrystallized [ Fenofibrate] 48 Mg Tablet 1 each PO DAILY [facility] Last Admin: 10/07/20 08:18 Dose: Not Given Documented by: Sodium Chloride (Sodium Chloride 0.9% 10 Ml Syringe) 10 ml FLUSH ASDIRECTED [facility] Discontinued Medications Acetaminophen (Acetaminophen 325 Mg Tab) 650 mg PO NOW ONE Stop: 10/04/20 01:02 Last Admin: 10/04/20 01:18 Dose: 650 mg Documented by: Amitriptyline HCl (Amitriptyline 10 Mg Tab) 10 mg PO BEDTIME [facility] Last Admin: 10/04/20 21:06 Dose: Not Given Documented by: Amitriptyline HCl (Amitriptyline 10 Mg Tab) 20 mg PO BEDTIME [facility] Sodium Chloride (Normal Saline) 1,000 mls @ 999 mls/hr IV BOLUS ONE; Protocol Stop: 10/04/20 00:06 Last Admin: 10/03/20 23:26 Dose: 999 mls/hr Documented by: Sodium Chloride (Normal Saline) 1,000 mls @ 999 mls/hr IV .Bolus ONE Stop: 10/04/20 00:10 Last Admin: 10/04/20 00:54 Dose: 999 mls/hr Documented by: Ceftriaxone Sodium/Dextrose 1 (gm/ Premix) 50 mls @ 100 mls/hr IV ONETIME ONE Stop: 10/03/20 23:39 Last Admin: 10/03/20 23:26 Dose: 100 mls/hr Documented by: Sodium Chloride (Normal Saline) 1,000 mls @ 999 mls/hr IV .Bolus ONE Stop: 10/04/20 01:58 Last Admin: 10/04/20 01:58 Dose: 999 mls/hr Documented by: Lactated Ringer's (Ringers, Lactated) 1,000 mls @ 999 mls/hr IV ONETIME ONE Stop: 10/04/20 03:35 Last Admin: 10/04/20 04:28 Dose: Not Given Documented by: Lactated Ringer's (Ringers, Lactated) 1,000 mls @ 125 mls/hr IV ASDIRECTED [facility] Last Admin: 10/04/20 03:48 Dose: 125 mls/hr Documented by: Lactated Ringer's (Ringers, Lactated) 500 mls @ 999 mls/hr IV ONETIME ONE Stop: 10/04/20 03:19 Last Admin: 10/04/20 03:11 Dose: 999 mls/hr Documented by: Ceftriaxone Sodium/Dextrose 1 (gm/ Premix) 50 mls @ 100 mls/hr IV Q24H [facility] Last Admin: 10/06/20 23:54 Dose: 100 mls/hr Documented by: Magnesium Sulfate (Magnesium Sulfate In Water 2 Gm/50 Ml) 2 gm in 50 mls @ 50 mls/hr IV ONETIME ONE Stop: 10/04/20 11:56 Last Admin: 10/04/20 11:49 Dose: 50 mls/hr Documented by: Magnesium Oxide (Magnesium Oxide 400 Mg Tab) 800 mg PO ONETIME ONE Stop: 10/05/20 09:42 Last Admin: 10/05/20 09:57 Dose: 800 mg Documented by: Sodium Chloride (Sodium Chloride 0.9% 10 Ml Syringe) 10 ml FLUSH ASDIRECTED PRN PRN Reason: Keep Vein Open Last Admin: 10/03/20 23:28 Dose: 10 ml Documented by: Sodium Chloride (Sodium Chloride 0.9% 2.5 Ml Syringe) 2.5 ml FLUSH ASDIRECTED P RN PRN Reason: Keep Vein Open Last Admin: 10/03/20 23:28 Dose: 2.5 ml Documented by: Sodium Chloride (Sodium Chloride 0.9% 2.5 Ml Syringe) 2.5 ml FLUSH ASDIRECTED PRN PRN Reason: Keep Vein Open - Exam Quality Assessment: DVT Prophylaxis. No: Supplemental Oxygen General: Alert, Oriented, Cooperative Lungs: Clear to Auscultation, Normal Respiratory Effort Cardiovascular: Regular Rate, Regular Rhythm GI/Abdominal Exam: Normal Bowel Sounds, Soft, Non-Tender Extremities: Normal Inspection, Normal Range of Motion, Non-Tender, No Pedal Edema Wound/Incisions: Healing Well Psy/Mental Status: Alert, Normal Affect, Normal Mood - Patient Data Lab Results Last 24 hrs: Laboratory Results - last 24 hr 10/06/20 10/06/20 10/07/20 Range/Units 15:56 21:18 06:10 WBC 4.57 (4.0-11.0) K/uL RBC 3.86 L (4.30-5.90) M/uL Hgb 11.7 L (12.0-16.0) g/dL Hct 34.7 L (36.0-46.0) % MCV 89.9 (80.0-98.0) fL MCH 30.3 (27.0-32.0) pg MCHC 33.7 (31.0-37.0) g/dL RDW Std Deviation 42.8 (28.0-62.0) fl RDW Coeff of Aranza 13 (11.0-15.0) % Plt Count 191 (150-400) K/uL MPV 10.00 (7.40-12.00) fL Neut % (Auto) 34.7 L (48.0-80.0) % Lymph % (Auto) 47.3 H (16.0-40.0) % [place] % (Auto) 15.1 H (0.0-15.0) % Eos % (Auto) 2.2 (0.0-7.0) % Baso % (Auto) 0.7 (0.0-1.5) % Neut # (Auto) 1.6 (1.4-5.7) K/uL Lymph # (Auto) 2.2 (0.6-2.4) K/uL [place] # (Auto) 0.7 (0.0-0.8) K/uL Eos # (Auto) 0.1 (0.0-0.7) K/uL Baso # (Auto) 0.0 (0.0-0.1) K/uL Nucleated RBC % 0.0 /100WBC Nucleated RBCs # 0 K/uL Sodium (136-145) mmol/L Potassium (3.5-5.1) mmol/L Chloride (98-107) mmol/L Carbon Dioxide (21.0-32.0) mmol/L BUN (7.0-18.0) mg/dL Creatinine (0.6-1.0) mg/dL Est Cr Clr Drug Dosing mL/min Estimated GFR (MDRD) ml/min Glucose (74-106) mg/dL POC Glucose 146 H 169 H (70-99) mg/dL Calcium (8.5-10.1) mg/dL Phosphorus (2.6-4.7) mg/dL Magnesium (1.8-2.4) mg/dL 10/07/20 10/07/20 10/07/20 Range/Units 06:10 06:58 11:44 WBC (4.0-11.0) K/uL RBC (4.30-5.90) M/uL Hgb (12.0-16.0) g/dL Hct (36.0-46.0) % MCV (80.0-98.0) fL MCH (27.0-32.0) pg MCHC (31.0-37.0) g/dL RDW Std Deviation (28.0-62.0) fl RDW Coeff of [place]anza (11.0-15.0) % Plt Count (150-400) K/uL MPV (7.40-12.00) fL Neut % (Auto) (48.0-80.0) % Lymph % (Auto) (16.0-40.0) % [place] % (Auto) (0.0-15.0) % Eos % (Auto) (0.0-7.0) % Baso % (Auto) (0.0-1.5) % Neut # (Auto) (1.4-5.7) K/uL Lymph # (Auto) (0.6-2.4) K/uL [place] # (Auto) (0.0-0.8) K/uL Eos # (Auto) (0.0-0.7) K/uL Baso # (Auto) (0.0-0.1) K/uL Nucleated RBC % /100WBC Nucleated RBCs # K/uL Sodium 141 (136-145) mmol/L Potassium 4.0 (3.5-5.1) mmol/L Chloride 106 (98-107) mmol/L Carbon Dioxide 28.1 (21.0-32.0) mmol/L BUN 14 (7.0-18.0) mg/dL Creatinine 1.1 H (0.6-1.0) mg/dL Est Cr Clr Drug Dosing 47.60 mL/min Estimated GFR (MDRD) 49.4 ml/min Glucose 124 H (74-106) mg/dL POC Glucose 122 H 142 H (70-99) mg/dL Calcium 7.9 L (8.5-10.1) mg/dL Phosphorus 4.2 (2.6-4.7) mg/dL Magnesium 1.9 (1.8-2.4) mg/dL Result Diagrams: 10/07/20 06:10 10/07/20 06:10 Wesley Results Last 24 hrs: Microbiology 10/03/20 23:04 Aerobic Blood Culture - Preliminary Blood - Venous - Lab Draw NO GROWTH AFTER 3 DAYS Anaerobic Blood Culture - Preliminary NO GROWTH AFTER 3 DAYS 10/03/20 22:50 Aerobic Blood Culture - Preliminary Blood - Venous NO GROWTH AFTER 3 DAYS Anaerobic Blood Culture - Preliminary NO GROWTH AFTER 3 DAYS Sepsis Event Note - Evaluation Sepsis Screening Result: No Definite Risk - Focused Exam Vital Signs: Vital Signs Temp Pulse Resp BP BP Pulse Ox 10/07/20 12:10 97.0 F 80 16 113/69 97 10/07/20 09:00 97.2 F 82 16 105/57 L 96 10/07/20 08:19 97.2 F 88 14 124/75 97 10/07/20 04:24 96.3 F L 85 16 125/72 96 - Problem List & Annotations (1) Sepsis SNOMED Code(s): 72677591 Code(s): A41.9 - SEPSIS, UNSPECIFIED ORGANISM Status: Acute Current Visit: Yes Qualifiers: Sepsis type: sepsis due to unspecified organism Sepsis acute organ dysfunction status: without acute organ dysfunction Qualified Code(s): A41.9 - Sepsis, unspecified organism (2) Complicated UTI (urinary tract infection) SNOMED Code(s): 18530201 Code(s): N39.0 - URINARY TRACT INFECTION, SITE NOT SPECIFIED Status: Acute Current Visit: Yes (3) Dehydration SNOMED Code(s): 59988539 Code(s): E86.0 - DEHYDRATION Status: Acute Current Visit: Yes (4) Fall in elderly patient SNOMED Code(s): 321924669 Code(s): R29.6 - REPEATED FALLS Status: Acute Current Visit: Yes (5) CAD (coronary artery disease) SNOMED Code(s): 85984574 Code(s): I25.10 - ATHSCL HEART DISEASE OF [place] CORONARY ARTERY W/O ANG PCTRS Status: Chronic Priority: Medium Current Visit: No Qualifiers: Coronary Disease-Associated Artery/Lesion type: unspecified vessel or lesion type [place] vs. transplanted heart: [place] heart Associated angina: without angina Qualified Code(s): I25.10 - Atherosclerotic heart disease of [place] coronary artery without angina pectoris (6) HTN (hypertension) SNOMED Code(s): 65071024 Code(s): I10 - ESSENTIAL (PRIMARY) HYPERTENSION Status: Chronic Priority: Medium Current Visit: No Qualifiers: Hypertension type: unspecified Qualified Code(s): I10 - Essential (primary) hypertension (7) TIA (transient ischemic attack) SNOMED Code(s): 184329681 Code(s): G45.9 - TRANSIENT CEREBRAL ISCHEMIC ATTACK, UNSPECIFIED Status: Chronic Current Visit: Yes (8) DM type 2 (diabetes mellitus, type 2) SNOMED Code(s): 84991157 Code(s): E11.9 - TYPE 2 DIABETES MELLITUS WITHOUT COMPLICATIONS Status: Acu te Current Visit: Yes Qualifiers: Diabetes mellitus fci insulin use: with [employer] education [employer] use Diabetes mellitus complication status: with circulatory complication Diabetes mellitus complication detail: with other circulatory complications Qualified Code(s): E11.59 - Type 2 diabetes mellitus with other circulatory complications; Z79.4 - correction (current) use of insulin - Problem List Review Problem List Initiated/Reviewed/Updated: Yes - My Orders Last 24 Hours: My Active Orders 10/07/20 21:00 Cefdinir [Omnicef] 300 mg PO BID - Plan Plan:: This 70-year-old female admitted with sepsis secondary to complicated UTI, fall and generalized weakness 1. Sepsis secondary to complicated E. coli UTI -Discontinue Rocephin start cefdinir 300 mg p.o. twice daily and transition for going home in the next day -Blood cultures negative x2 days -Urine culture growing E.coli, resistant to Bactrim and fluoroquinolones patient has allergies to penicillins. 2. KIM -Resolved -Baseline Creatinine around 0.8 - 1.0 3. Falls/generalized weakness -Improving -Consult PT to evaluate and treat -Home health upon discharge 4. DM type II -NovoLog sliding scale with meals -Check blood sugars 3 times daily before meals and as needed -Continue long-acting insulin in the evening will decrease dose from 50 units to 40 units nightly. 5. CAD/TIAs -Continue Plavix -Hold Lasix and losartan 6. Hypothyroidism -Continue levothyroxine VTE prophylaxis: Heparin CODE STATUS: DNR, would be okay with intubation if respiratory failure were to o ccur. Dispo: likely home tomorrow.
[2020-10-07] MEDS: Acetaminophen 325 MG Tab PO PRN (14:00)
[2020-10-07] MEDS: atorvaSTATin 40 MG Tab PO SCH (22:40)
[2020-10-07] MEDS: Amitriptyline 10 MG Tab PO SCH (22:40)
[2020-10-07] MEDS: Cefdinir 300 MG Cap PO SCH (22:40)
[2020-10-07] MEDS: Insulin Glargine,Human Rec. Analog 100 Units/ML 3 ML Pen SUBCUT SCH (22:41)
[2020-10-08] MEDS: Heparin Sodium 5,000 Units/ML Vial SUBCUT SCH ×2 (02:51→10:48)
[2020-10-08 06:29] LABS: CARBON DIOXIDE,CO2 27.3 mmol/L (21.0-32.0); POTASSIUM,K 4.1 mmol/L (3.5-5.1)
[2020-10-08] MEDS: Levothyroxine 50 MCG Tab PO SCH (06:50)
[2020-10-08] MEDS: Insulin Aspart 100 Units/ML 3 ML Pen SUBCUT SCH ×2 (08:17→12:51)
[2020-10-08] MEDS: Cefdinir 300 MG Cap PO SCH (09:11)
[2020-10-08] MEDS: Clopidogrel 75 MG Tab PO SCH (09:12)
[2020-10-08] MEDS: FENOFIBRATE NANOCRYSTALLIZED 48 MG PO SCH (09:12)
[2020-10-08] MEDS: DULoxetine 60 MG Cap PO SCH (09:12)
[2020-10-08] MEDS: Cholecalciferol (Vitamin D3) 25 MCG Tab PO SCH (09:15)
--- NOTE | 2020-10-08 11:12 | PCM.DCSUM1 ---
Discharge Summary - Hospital Course Brief History: This is a 70-year-old female with pmh of TIAs, CAD post CABG and multiple stents on Plavix, CHF, and UTIs who presented ER last night secondary to generalized weakness x1 day with 3 falls throughout the course of the day. Patient reports she normally walks with her walker and is able to walk outdoors. Patient reports that she tried to go outside today and felt too weak and fell down and landed on her bottom. Patient does not recall hitting her head and denies any loss of consciousness. Patient denies any chest pain or shortness of breath. She reports that she was recently treated with Bactrim for UTI the beginning of September and reports that she continued to have symptoms. She left another UA on the or for her provider at [place] which they continue to see UTI and sent for ciprofloxacin to the pharmacy. She reports she was so weak she was unable to go get the new prescription. She reports she has had recent vomiting, nausea and poor appetite while at home. Patient denies any abdominal pain or flank pain denies any history of renal stones. Patient reports dysuria, frequency, urgency in her urinary output. Patient reports recent constipation as she has not been eating much. Patient denies any melena or bright red blood per rectum. Patient reports that she has been compliant with her medications up until the last couple days that she has not been feeling well. She denies any recreational drug use no tobacco use and no alcohol use. Denies any Covid 19 symptoms and no close contacts that she is aware of. In the ER no leukocytosis noted hemoglobin 13.2 hematocrit 37.5. Platelet count 205,000. Lactic acid 1.2 BUN 22 creatinine 1.6 sodium 136 potassium 4.0. Bilirubin 1.3 alk phos 123 troponin negative. UA obtained which show significant UTI with +4 bacteria too numerous to count WBCs moderate leukocyte esterase negative nitrite moderate blood. Covid influenza swabbing negative. Head CT obtained due to weakness and confusion. No evidence of acute infarction intracranial hemorrhage or mass-effect seen. Chest x-ray obtained which reveals no acute cardiopulmonary process seen. Vital signs in the ER noted initial tachycardia with elevated blood pressures [id number] to 90s patient also noted to be febrile 101.2 F in the ER. Patient treated with IV fluid boluses x3 L in the ER. Heart rate improved after fluid resuscitation as well as blood pressure. She was treated with Rocephin 1 g for UTI. She was admitted observation for sepsis secondary to complicated UTI, falls and generalized weakness. - Discharge Data Discharge Date: 10/08/20 Discharge Disposition: Home, W Home Health Agency 06 Condition: Good - Referral to Home Health Date of Face to Face Encounter: 10/08/20 Reason for Homebound Status: Pat is homebound in need of assistance to leave the house from a caregiver and/or family member to get to appointments. She is in need of assistive device due to unsteady gait and recent falls. Primary Care Physician: PCP None Skilled Need: Pat is in need of halfway care to help monitor vital signs as well as signs and symptoms of UTI. Patient would also benefit from medication management. Patient also would benefit from PT/OT evaluation and treatment due to wanted steady gait and evaluation of performance of ADLs and home safety evaluation due to recent falls within the home. - Discharge Diagnosis/Problem(s) (1) Sepsis SNOMED Code(s): 75974125 ICD Code: A41.9 - SEPSIS, UNSPECIFIED ORGANISM Status: Resolved Current Visit: Yes Qualifiers: Sepsis type: sepsis due to unspecified organism Sepsis acute organ dysfunction status: without acute organ dysfunction Qualified Code(s): A41.9 - Sepsis, unspecified organism (2) Complicated UTI (urinary tract infection) SNOMED Code(s): 61620048 ICD Code: N39.0 - URINARY TRACT INFECTION, SITE NOT SPECIFIED Status: Acute Current Visit: Yes (3) Dehydration SNOMED Code(s): 34186037 ICD Code: E86.0 - DEHYDRATION Status: Acute Current Visit: Yes (4) Fall in elderly patient SNOMED Code(s): 465461316 ICD Code: R29.6 - REPEATED FALLS Status: Acute Current Visit: Yes (5) CAD (coronary artery disease) SNOMED Code(s): 21228385 ICD Code: I25.10 - ATHSCL HEART DISEASE OF [place] CORONARY ARTERY W/O ANG PCTRS Status: Chronic Priority: Medium Current Visit: No Qualifiers: Coronary Disease-Associated Artery/Lesion type: unspecified vessel or lesion type [place] vs. transplanted heart: [place] heart Associated angina: without angina Qualified Code(s): I25.10 - Atherosclerotic heart disease of [place] coronary artery without angina pectoris (6) HTN (hypertension) SNOMED Code(s): 44225822 ICD Code: I10 - ESSENTIAL (PRIMARY) HYPERTENSION Status: Chronic Priority: Medium Current Visit: No Qualifiers: Hypertension type: unspecified Qualified Code(s): I10 - Essential (primary) hypertension (7) TIA (transient ischemic attack) SNOMED Code(s): 116792005 ICD Code: G45.9 - TRANSIENT CEREBRAL ISCHEMIC ATTACK, UNSPECIFIED Status: Chronic Current Visit: Yes (8) DM type 2 (diabetes mellitus, type 2) SNOMED Code(s): 84897786 ICD Code: E11.9 - TYPE 2 DIABETES MELLITUS WITHOUT COMPLICATIONS Status: Acute Current Visit: Yes Qualifiers: Diabetes mellitus half-way insulin use: with half-way use Diabetes mellitus complication status: with circulatory complication Diabetes mellitus complication detail: with other circulatory complications Qualified Code(s): E11.59 - Type 2 diabetes mellitus with other circulatory complications; Z79.4 - terminal carman (current) use of insulin - Patient Summary/Data Consults: Consultations 10/05/20 08:00 PT Evaluation and Treatment [CONS] Routine Hospital Course: Admission diagnoses Sepsis Complicated UTI failed outpatient management Dehydration Fall Discharge diagnoses Sepsis resolved Complicated UTI failed outpatient management Dehydration resolved Fall Other PMH CAD Hypertension TIA Type 2 diabetes Pat was admitted secondary to sepsis from complicated UTI which failed outpatient management. She was treated with aggressive IV fluid resuscitation in the ER as well as on our unit. She was noted to be febrile with tachycardia which did improve with IV fluid resuscitation. She was treated with Rocephin IV for suspected UTI. IV fluids were stopped once she was resuscitated appropriately to remain euvolemic due to heart failure. Patient urine cultures returned with E. coli that was resistant to fluoroquinolones along with Bactrim which were both medication she was sent home on from PCP. She was maintained on Rocephin and continue to improve. Physical therapy was consulted to help with weakness and falls at home. Falls likely secondary to deconditioning and acute illness. Today she is feeling much improved has been up ambulating in her room. Antibiotics were switched to oral Omnicef yesterday she is limited due to resistance of E. coli in the urine as well as allergies to penicillin. Patient tolerated Omnicef well and will be discharged home today with home health to evaluate and treat upon discharge. She will continue on cefdinir for another 9 days to treat complicated UTI. Patient will have follow-up with PCP and was counseled to return to the ED or clinic if concerns should arise. - Patient Instructions Diet: Heart Healthy Diet, Diabetic Diet Activity: As Tolerated, Rest and Relax Today Showering/Bathing: May Shower Notify Provider of: Fever, Increased Pain, Swelling and Redness, Drainage, Nausea and/or Vomiting Other/Special Instructions: Consider picking up probiotics brand-name such as Align or Culturelle are appropriate. - Discharge Plan *PRESCRIPTION DRUG MONITORING PROGRAM REVIEWED*: Not Applicable *COPY OF PRESCRIPTION DRUG MONITORING REPORT IN PATIENT ROCKY: Not Applicable Prescriptions/Med Rec: Cefdinir [Omnicef] 300 mg PO BID #18 cap Home Medications: Home Meds Clopidogrel [Plavix] 75 mg PO DAILY 06/18/17 [History] Losartan [Cozaar] 12.5 mg PO BEDTIME 06/18/17 [History] Nitroglycerin [Nitrostat] 0.4 mg SL ASDIRECTED PRN 06/18/17 [History] atorvaSTATin [Lipitor] 80 mg PO BEDTIME 06/18/17 [History] oxyCODONE 5 mg PO Q4H PRN 06/18/17 [History] Amitriptyline [Elavil] 2 tab PO BEDTIME 10/19/17 [History] DULoxetine [Cymbalta] 60 mg PO DAILY 10/19/17 [History] Furosemide 40 mg PO ASDIRECTED PRN 10/19/17 [History] Insulin Glargine,Hum.Rec.Anlog [Basaglar Kwikpen U-100] 50 units SQ BEDTIME 12/08/17 [History] Levothyroxine [Synthroid] 50 mcg PO DAILY 04/04/19 [History] Cholecalciferol (Vitamin D3) [Vitamin D3] 25 mcg PO DAILY 10/03/20 [History] Fenofibrate Nanocrystallized [Fenofibrate] 48 mg PO DAILY 10/03/20 [History] traMADol [Ultram] 50 mg PO DAILY 10/03/20 [History] InFLIXimab [Remicade] 100 mg IV ASDIRECTED 10/04/20 [History] Acetaminophen [Tylenol] 650 mg PO Q6H PRN tablet 10/08/20 [Rx] Cefdinir [Omnicef] 300 mg PO BID #18 cap 10/08/20 [Rx] Oxygen Therapy Mode: Room Air Patient Handouts: Cefdinir Capsules, Urinary Tract Infection, Adult, [id number], Sepsis, Self Care, Adult Referrals: Salvador Gonzáles MD [Ordering Only Provider] - 10/14/20 12:30 pm - Discharge Summary/Plan Comment DC Time >30 min.: No - Patient Data Vitals - Most Recent: Last Vital Signs Temp 96.5 F L 10/08/20 08:04 Pulse 67 10/08/20 08:04 Resp 22 H 10/08/20 08:04 BP 134/75 10/08/20 08:04 Pulse Ox 96 10/08/20 08:04 Weight - Most Recent: 95.254 kg I&O - Last 24 hours: Intake & Output 10/07/20 10/08/20 10/08/20 22:59 06:59 14:59 Intake Total 1390 650 Output Total 875 550 Balance 515 100 Lab Results - Last 24 hrs: Laboratory Results - last 24 hr 10/07/20 10/07/20 10/07/20 Range/Units 11:44 18:07 22:39 WBC (4.0-11.0) K/uL RBC (4.30-5.90) M/uL Hgb (12.0-16.0) g/dL Hct (36.0-46.0) % MCV (80.0-98.0) fL MCH (27.0-32.0) pg MCHC (31.0-37.0) g/dL RDW Std Deviation (28.0-62.0) fl RDW Coeff of [place] (11.0-15.0) % Plt Count (150-400) K/uL MPV (7.40-12.00) fL Neut % (Auto) (48.0-80.0) % Lymph % (Auto) (16.0-40.0) % [place] % (Auto) (0.0-15.0) % Eos % (Auto) (0.0-7.0) % Baso % (Auto) (0.0-1.5) % Neut # (Auto) (1.4-5.7) K/uL Lymph # (Auto) (0.6-2.4) K/uL [place] # (Auto) (0.0-0.8) K/uL Eos # (Auto) (0.0-0.7) K/uL Baso # (Auto) (0.0-0.1) K/uL Nucleated RBC % /100WBC Nucleated RBCs # K/uL Sodium (136-145) mmol/L Potassium (3.5-5.1) mmol/L Chloride (98-107) mmol/L Carbon Dioxide (21.0-32.0) mmol/L BUN (7.0-18.0) mg/dL Creatinine (0.6-1.0) mg/dL Est Cr Clr Drug Dosing mL/min Estimated GFR (MDRD) ml/min Glucose (74-106) mg/dL POC Glucose 142 H 143 H 185 H (70-99) mg/dL Calcium (8.5-10.1) mg/dL Phosphorus (2.6-4.7) mg/dL Magnesium (1.8-2.4) mg/dL 10/08/20 10/08/20 10/08/20 Range/Units 05:30 05:30 06:16 WBC 5.86 (4.0-11.0) K/uL RBC 4.00 L (4.30-5.90) M/uL Hgb 12.1 (12.0-16.0) g/dL Hct 35.7 L (36.0-46.0) % MCV 89.3 (80.0-98.0) fL MCH 30.3 (27.0-32.0) pg MCHC 33.9 (31.0-37.0) g/dL RDW Std Deviation 43.6 (28.0-62.0) fl RDW Coeff of [place] 13 (11.0-15.0) % Plt Count 227 (150-400) K/uL MPV 10.30 (7.40-12.00) fL Neut % (Auto) 32.3 L (48.0-80.0) % Lymph % (Auto) 53.1 H (16.0-40.0) % [place] % (Auto) 11.9 (0.0-15.0) % Eos % (Auto) 2.2 (0.0-7.0) % Baso % (Auto) 0.5 (0.0-1.5) % Neut # (Auto) 1.9 (1.4-5.7) K/uL Lymph # (Auto) 3.1 H (0.6-2.4) K/uL [place] # (Auto) 0.7 (0.0-0.8) K/uL Eos # (Auto) 0.1 (0.0-0.7) K/uL Baso # (Auto) 0.0 (0.0-0.1) K/uL Nucleated RBC % 0.0 /100WBC Nucleated RBCs # 0 K/uL Sodium 142 (136-145) mmol/L Potassium 4.1 (3.5-5.1) mmol/L Chloride 107 (98-107) mmol/L Carbon Dioxide 27.3 (21.0-32.0) mmol/L BUN 14 (7.0-18.0) mg/dL Creatinine 1.1 H (0.6-1.0) mg/dL Est Cr Clr Drug Dosing 47.60 mL/min Estimated GFR (MDRD) 49.4 ml/min Glucose 116 H (74-106) mg/dL POC Glucose 109 H (70-99) mg/dL Calcium 7.9 L (8.5-10.1) mg/dL Phosphorus 4.0 (2.6-4.7) mg/dL Magnesium 1.9 (1.8-2.4) mg/dL JOSE MANUEL Results - Last 24 hrs: Microbiology 10/03/20 23:04 Aerobic Blood Culture - Preliminary Blood - Venous - Lab Draw NO GROWTH AFTER 4 DAYS Anaerobic Blood Culture - Preliminary NO GROWTH AFTER 4 DAYS 10/03/20 22:50 Aerobic Blood Culture - Preliminary Blood - Venous NO GROWTH AFTER 4 DAYS Anaerobic Blood Culture - Preliminary NO GROWTH AFTER 4 DAYS Med Orders - Current: Current Medications Acetaminophen (Acetaminophen 325 Mg Tab) 650 mg PO Q6H PRN PRN Reason: Pain/Fever Last Admin: 10/07/20 14:00 Dose: 650 mg Documented by: Albuterol/Ipratropium (Albuterol/Ipratropium 3.0-0.5 Mg/3 Ml Neb Soln) 3 ml NEB Q4HRRT PRN PRN Reason: Shortness of Breath Amitriptyline HCl (Amitriptyline 10 Mg Tab) 20 mg PO BEDTIME [facility] Last Admin: 10/07/20 22:40 Dose: 20 mg Documented by: Atorvastatin Calcium (Atorvastatin 40 Mg Tab) 80 mg PO BEDTIME [facility]ANTE Last Admin: 10/07/20 22:40 Dose: 80 mg Documented by: Cefdinir (Cefdinir 300 Mg Cap) 300 mg PO BID [facility] Last Admin: 10/08/20 09:11 Dose: 300 mg Documented by: Cholecalciferol (Cholecalciferol (Vitamin D3) 25 Mcg Tab) 25 mcg PO DAILY [facility] Last Admin: 10/08/20 09:15 Dose: 25 mcg Documented by: Clopidogrel Bisulfate (Clopidogrel 75 Mg Tab) 75 mg PO DAILY [facility] Last Admin: 10/08/20 09:12 Dose: 75 mg Documented by: Dextrose/Water (50% Dextrose In Water 50 Ml Syringe) 50 ml IV ASDIRECTED PRN PRN Reason: Hypoglycemia Duloxetine HCl (Duloxetine 60 Mg Cap) 60 mg PO DAILY [facility] Last Admin: 10/08/20 09:12 Dose: 60 mg Documented by: Glucagon (Glucagon,Human Recombinant 1 Mg Vial) 1 mg IM ASDIRECTED PRN PRN Reason: Hypoglycemia Heparin Sodium (Porcine) (Heparin Sodium 5,000 Units/Ml Vial) 5,000 units SUBCUT Q8H [facility] Last Admin: 10/08/20 10:48 Dose: 5,000 units Documented by: Insulin Aspart (Insulin Aspart 100 Units/Ml 3 Ml Pen) 0 unit SUBCUT TIDAC [facility]; Protocol Last Admin: 10/08/20 08:17 Dose: Not Given Documented by: Insulin Glargine (Insulin Glargine,Human Rec. Analog 100 Units/Ml 3 Ml Pen) 40 units SUBCUT BEDTIME [facility] Last Admin: 10/07/20 22:41 Dose: 40 units Documented by: Levothyroxine Sodium (Levothyroxine 50 Mcg Tab) 50 mcg PO ACBREAKFAST [facility] Last Admin: 10/08/20 06:50 Dose: 50 mcg Documented by: Morphine Sulfate (Morphine 2 Mg/Ml Syringe) 1 mg IVPUSH Q4H PRN PRN Reason: Pain (severe 7-10) Ondansetron HCl (Ondansetron 4 Mg/2 Ml Sdv) 4 mg IVPUSH Q6H PRN PRN Reason: Nausea Last Admin: 10/04/20 14:02 Dose: 4 mg Documented by: Fenofibrate Nanocrystallized [ Fenofibrate] 48 Mg Tablet 1 each PO DAILY [facility] Last Admin: 10/08/20 09:12 Dose: Not Given Documented by: Sodium Chloride (Sodium Chloride 0.9% 10 Ml Syringe) 10 ml FLUSH ASDIRECTED [facility] Discontinued Medications Acetaminophen (Acetaminophen 325 Mg Tab) 650 mg PO NOW ONE Stop: 10/04/20 01:02 Last Admin: 10/04/20 01:18 Dose: 650 mg Documented by: Amitriptyline HCl (Amitriptyline 10 Mg Tab) 10 mg PO BEDTIME [facility] Last Admin: 10/04/20 21:06 Dose: Not Given Documented by: Amitriptyline HCl (Amitriptyline 10 Mg Tab) 20 mg PO BEDTIME [facility] Sodium Chloride (Normal Saline) 1,000 mls @ 999 mls/hr IV BOLUS ONE; Protocol Stop: 10/04/20 00:06 Last Admin: 10/03/20 23:26 Dose: 999 mls/hr Documented by: Sodium Chloride (Normal Saline) 1,000 mls @ 999 mls/hr IV .Bolus ONE Stop: 10/04/20 00:10 Last Admin: 10/04/20 00:54 Dose: 999 mls/hr Documented by: Ceftriaxone Sodium/Dextrose 1 (gm/ Premix) 50 mls @ 100 mls/hr IV ONETIME ONE Stop: 10/03/20 23:39 Last Admin: 10/03/20 23:26 Dose: 100 mls/hr Documented by: Sodium Chloride (Normal Saline) 1,000 mls @ 999 mls/hr IV .Bolus ONE Stop: 10/04/20 01:58 Last Admin: 10/04/20 01:58 Dose: 999 mls/hr Documented by: Lactated Ringer's (Ringers, Lactated) 1,000 mls @ 999 mls/hr IV ONETIME ONE Stop: 10/04/20 03:35 Last Admin: 10/04/20 04:28 Dose: Not Given Documented by: Lactated Ringer's (Ringers, Lactated) 1,000 mls @ 125 mls/hr IV ASDIRECTED [facility] Last Admin: 10/04/20 03:48 Dose: 125 mls/hr Documented by: Lactated Ringer's (Ringers, Lactated) 500 mls @ 999 mls/hr IV ONETIME ONE Stop: 10/04/20 03:19 Last Admin: 10/04/20 03:11 Dose: 999 mls/hr Documented by: Ceftriaxone Sodium/Dextrose 1 (gm/ Premix) 50 mls @ 100 mls/hr IV Q24H [facility] Last Admin: 10/06/20 23:54 Dose: 100 mls/hr Documented by: Magnesium Sulfate (Magnesium Sulfate In Water 2 Gm/50 Ml) 2 gm in 50 mls @ 50 mls/hr IV ONETIME ONE Stop: 10/04/20 11:56 Last Admin: 10/04/20 11:49 Dose: 50 mls/hr Documented by: Magnesium Oxide (Magnesium Oxide 400 Mg Tab) 800 mg PO ONETIME ONE Stop: 10/05/20 09:42 Last Admin: 10/05/20 09:57 Dose: 800 mg Documented by: Sodium Chloride (Sodium Chloride 0.9% 10 Ml Syringe) 10 ml FLUSH ASDIRECTED PRN PRN Reason: Keep Vein Open Last Admin: 10/03/20 23:28 Dose: 10 ml Documented by: Sodium Chloride (Sodium Chloride 0.9% 2.5 Ml Syringe) 2.5 ml FLUSH ASDIRECTED PRN PRN Reason: Keep Vein Open Last Admin: 10/03/20 23:28 Dose: 2.5 ml Documented by: Sodium Chloride (Sodium Chloride 0.9% 2.5 Ml Syringe) 2.5 ml FLUSH ASDIRECTED PRN PRN Reason: Keep Vein Open
[2020-10-08 12:18] VITALS: BP 144/68; PULSE 77
[2020-10-08] MEDS ORDERED: Heparin Sodium 100 Units/ML 3 ML Syringe FLUSH PRN (14:27)
== END 2020-10-08 15:00 | disposition home health service (06) | DRG 872 ==
LOC: MW.ED 22:33 → OBSVTOIN 10-04 01:25 → MW.MS 10-04 01:25
PROVIDERS: ADMIT Student in an Organized Health Care Education/Training Program; ATTEND Student in an Organized Health Care Education/Training Program
DX: A41.9 Sepsis, unspecified organism (principal); N12 Tubulo-interstitial nephritis, not specified as acute or chronic; W19.XXXA Unspecified fall, initial encounter; N17.9 Acute kidney failure, unspecified; H54.7 Unspecified visual loss; E86.0 Dehydration; I25.10 Atherosclerotic heart disease of native coronary artery without angina pectoris; R29.6 Repeated falls; R53.1 Weakness; Z79.4 Long term (current) use of insulin; E11.59 Type 2 diabetes mellitus with other circulatory complications; E78.00 Pure hypercholesterolemia, unspecified; Z86.73 Personal history of transient ischemic attack (TIA), and cerebral infarction without residual deficits; G47.30 Sleep apnea, unspecified; I69.398 Other sequelae of cerebral infarction; Z95.1 Presence of aortocoronary bypass graft; Z95.5 Presence of coronary angioplasty implant and graft; I11.0 Hypertensive heart disease with heart failure; Z85.72 Personal history of non-Hodgkin lymphomas; Z88.0 Allergy status to penicillin; Z91.048 Other nonmedicinal substance allergy status; Z79.02 Long term (current) use of antithrombotics/antiplatelets; Z79.890 Hormone replacement therapy; I50.9 Heart failure, unspecified; Z79.899 Other long term (current) drug therapy; Z87.01 Personal history of pneumonia (recurrent); I25.2 Old myocardial infarction; F41.9 Anxiety disorder, unspecified; F32.9 Major depressive disorder, single episode, unspecified; E03.9 Hypothyroidism, unspecified; Z90.89 Acquired absence of other organs; Z98.42 Cataract extraction status, left eye; Z98.41 Cataract extraction status, right eye; Z98.890 Other specified postprocedural states; Z90.710 Acquired absence of both cervix and uterus; Z90.49 Acquired absence of other specified parts of digestive tract; Z66 Do not resuscitate; Z20.822 Contact with and (suspected) exposure to COVID-19
CPT/HCPCS: 0240U; 36415; 70450; 71045; 80048; 80053; 81001; 82947; 83605; 83735; 84100; 84484; 85025; 85610; 85730; 87040; 87086; 87088; 87186; 93005; 96365; 97110; 97162; 99285; 99291; A9270-GY; J0696; J1642; J1644; J1815-GY; J2405; J3475; J7030; J7120

== ENCOUNTER 2020-12-23 11:05 | Observation (INO) | payer MEDICARE, OTHER ==
[2020-12-23] MEDS ORDERED: Sodium Chloride 0.9% 10 ML Syringe FLUSH PRN (11:09)
[2020-12-23] MEDS ORDERED: Sodium Chloride 0.9% 2.5 ML Syringe FLUSH PRN (11:09)
[2020-12-23] MEDS ORDERED: Sodium Chloride 0.9% 1,000 ML IV ONE (11:09)
[2020-12-23] MEDS ORDERED: Ondansetron 4 MG/2 ML SDV IVPUSH ONE (11:11)
[2020-12-23] MEDS ORDERED: Pantoprazole 80 MG in Sodium Chloride 0.9% 20 ML IVPUSH ONE (11:13)
--- NOTE | 2020-12-23 11:37 | EDM.PDOC ---
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 Patient notes that she fell when trying to get into her car last Wednesday. She states that she fell on her buttocks and then fell over hitting the right shoulder and head. She does not think that she lost consciousness. She did not seek medical attention at this time. She has noted ever since pain in her lower back as well as pain in her posterior head. Patient also notes abdominal pain and states that she has not had a bowel movement in 8 days and notes development of nausea with 3 episodes of emesis this morning. She notes that the emesis is dark and coffee grounds- like in appearance. Patient is not noted any bloody stool or dark tarry stool. She does note pain in abdomen. She denies one-sided body weakness. head Pain Score (Numeric/FACES): 4 - Related Data Allergies Allergy/AdvReac Type Severity Reaction Status Date / Time Penicillins Allergy Severe Cannot Verified 12/23/20 11:47 Remember silver Allergy Rash Verified 12/23/20 11:47 [From Tegaderm AG Mesh] tegaderm Allergy Burning Uncoded 12/23/20 11:47 Home Meds: Home Meds Clopidogrel [Plavix] 75 mg PO DAILY 06/18/17 [History] Losartan [Cozaar] 12.5 mg PO BEDTIME 06/18/17 [History] Nitroglycerin [Nitrostat] 0.4 mg SL ASDIRECTED PRN 06/18/17 [History] atorvaSTATin [Lipitor] 80 mg PO BEDTIME 06/18/17 [History] oxyCODONE 5 mg PO Q4H PRN 06/18/17 [History] Amitriptyline [Elavil] 2 tab PO BEDTIME 10/19/17 [History] DULoxetine [Cymbalta] 60 mg PO DAILY 10/19/17 [History] Furosemide 40 mg PO ASDIRECTED PRN 10/19/17 [History] Insulin Glargine,Hum.Rec.Anlog [Chava Rondon U-100] 50 units SQ BEDTIME 12/08/17 [History] Levothyroxine [Synthroid] 50 mcg PO DAILY 04/04/19 [History] Cholecalciferol (Vitamin D3) [Vitamin D3] 25 mcg PO DAILY 10/03/20 [History] Fenofibrate Nanocrystallized [Fenofibrate] 48 mg PO DAILY 10/03/20 [History] traMADol [Ultram] 50 mg PO DAILY 10/03/20 [History] InFLIXimab [Remicade] 100 mg IV ASDIRECTED 10/04/20 [History] Acetaminophen [Tylenol] 650 mg PO Q6H PRN tablet 10/08/20 [Rx] Cefdinir [Omnicef] 300 mg PO BID #18 cap 10/08/20 [Rx] Past Medical History HEENT History: Reports: Impaired Vision Cardiovascular History: Reports: Angina, Bypass, Heart Failure, Heart Murmur, High Cholesterol, Hypertension, MD, Stents Other Cardiovascular History: 'partial heart' Respiratory History: Reports: Sleep Apnea Other Respiratory History: pneumonia. 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 stroke in the passed 3 years . Had 2 storkes for the past 3 years. stroke affecting left arm. numbness to left arm. right arm partially numb. Bilateal lower legs are numb. Psychiatric History: Reports: Anxiety, Depression Endocrine/Metabolic History: Reports: Diabetes, Type II, Hypothyroidism Hematologic History: Reports: Other (See Below) Other Hematologic History: Easy bruising, not on anticoagulant therapy Immunologic History: Reports: None Oncologic (Cancer) History: Reports: Lymphoma Dermatologic History: Reports: Eczema - Infectious Disease History Infectious Disease History: Reports: Chicken Pox, Measles, Mumps - Past Surgical History Head Surgeries/Procedures: Reports: None HEENT Surgical History: Reports: Adenoidectomy, Cataract Surgery, Tonsillectomy, Other (See Below) Other HEENT Surgeries/Procedures: Sinus surgery, blepheroplasty Cardiovascular Surgical History: Reports: Other (See Below) Other Cardiovascular Surgeries/Procedures: 3 bypasses, 10 stents Respiratory Surgical History: Reports: None GI Surgical History: Reports: Cholecystectomy Female Surgical History: Reports: Breast Biopsy, Hysterectomy Neurological Surgical History: Reports: None Musculoskeletal Surgical History: Reports: Carpal Tunnel Oncologic Surgical History: Reports: None Dermatological Surgical History: Reports: None Social & Family History - Family History Family Medical History: No Pertinent Family History - Caffeine Use Caffeine Use: Reports: Coffee Other Caffeine Use: coffee twice a week - Living Situation & Occupation Living situation: Reports: Alone Occupation: Retired Review of Systems - Review of Systems Review Of Systems: Comprehensive ROS is negative, except as noted in HPI. ED EXAM, GENERAL - Physical Exam Exam: See Below Exam Limited By: No Limitations General Appearance: Alert, WD/WN, No Apparent Distress Eye Exam: Bilateral Eye: EOMI, PERRL Ears: Hearing Grossly Normal Nose: Normal Inspection Throat/Mouth: Normal Voice, No Airway Compromise Head: Atraumatic, Normocephalic Neck: Normal Inspection, Non-Tender Respiratory/Chest: No Respiratory Distress, Lungs Clear, Normal Breath Sounds, No Accessory Muscle Use Cardiovascular: Normal Peripheral Pulses, Regular Rate, Rhythm, No Edema GI/Abdominal: Soft, No Distention, Other (diffuse abdominal TTP worse in b/l lower abdomen L>R without guarding or rebound) Extremities: Other (no C-spine TTP; lower T-spine TTP; lumbar TTP diffuse; no step-offs or palpable deformities) Neurological: Alert, CN II-XII Intact, No Motor/Sensory Deficits Psychiatric: Normal Affect, Normal Mood Skin Exam: Warm, Dry, Intact, Pallor #1 Interpretation EKG Date: 12/23/20 Time: 11:13 Rhythm: NSR Rate (Beats/Min): 92 [place]: Normal P-Wave: Present QRS: Normal ST-T: Normal QT: Normal UT/PQ Interval: 162 EKG Interpretation Comments: 1x PVC; otherwise unremarkable EKG Course - Vital Signs Last Recorded V/S: Last Vital Signs Temp 97.8 F 12/23/20 11:10 Pulse 90 12/23/20 11:10 Resp 18 12/23/20 11:10 BP 122/78 12/23/20 11:10 Pulse Ox 97 12/23/20 11:10 - Orders/Labs/Meds Orders: Active Orders 24 hr Category Date Time Status Cardiac Monitoring [RC] . DIRECTED Care 12/23/20 11:09 Active EKG Documentation Completion [RC] STAT Care 12/23/20 11:09 Active CULTURE URINE [MREF] Stat Lab 12/23/20 13:00 Received Acetaminophen/oxyCODONE [Percocet 325-10 MG] Med 12/23/20 13:48 Once 1 tab PO ONETIME ONE Sodium Chloride 0.9% [Saline Flush] Med 12/23/20 11:09 Active 10 ml FLUSH ASDIRECTED PRN Sodium Chloride 0.9% [Saline Flush] Med 12/23/20 11:09 Active 2.5 ml FLUSH ASDIRECTED PRN cefTRIAXone [Rocephin in Dextrose,Iso-Osm 1 GM/50 ML] 1 Med 12/23/20 13:25 Active gm Premix Bag 1 bag IV ONETIME Saline Lock Insert [OM.PC] Stat Oth 12/23/20 11:09 Ordered Medication Orders Ceftriaxone Sodium/Dextrose 1 (gm/ Premix) 50 mls @ 100 mls/hr IV ONETIME ONE Stop: 12/23/20 13:54 Sodium Chloride (Sodium Chloride 0.9% 10 Ml Syringe) 10 ml FLUSH ASDIRECTED PRN PRN Reason: Keep Vein Open Last Admin: 12/23/20 11:58 Dose: 10 ml Documented by: SHERRI Sodium Chloride (Sodium Chloride 0.9% 2.5 Ml Syringe) 2.5 ml FLUSH ASDIRECTED PRN PRN Reason: Keep Vein Open Last Admin: 12/23/20 11:58 Dose: 2.5 ml Documented by: SHERRI Labs: Laboratory Tests 12/23/20 12/23/20 12/23/20 Range/Units 11:20 11:20 11:20 WBC 8.59 (4.0-11.0) K/uL RBC 4.34 (4.30-5.90) M/uL Hgb 13.0 (12.0-16.0) g/dL Hct 37.9 (36.0-46.0) % MCV 87.3 (80.0-98.0) fL MCH 30.0 (27.0-32.0) pg MCHC 34.3 (31.0-37.0) g/dL RDW Std Deviation 45.4 (28.0-62.0) fl RDW Coeff of [place] 14 (11.0-15.0) % Plt Count 159 (150-400) K/uL MPV 10.10 (7.40-12.00) fL Neut % (Auto) 61.4 (48.0-80.0) % Lymph % (Auto) 25.4 (16.0-40.0) % [place] % (Auto) 12.0 (0.0-15.0) % Eos % (Auto) 0.9 (0.0-7.0) % Baso % (Auto) 0.3 (0.0-1.5) % Neut # (Auto) 5.3 (1.4-5.7) K/uL Lymph # (Auto) 2.2 (0.6-2.4) K/uL [place] # (Auto) 1.0 H (0.0-0.8) K/uL Eos # (Auto) 0.1 (0.0-0.7) K/uL Baso # (Auto) 0.0 (0.0-0.1) K/uL Nucleated RBC % 0.0 /100WBC Nucleated RBCs # 0 K/uL Sodium 136 (136-145) mmol/L Potassium 4.1 (3.5-5.1) mmol/L Chloride 102 (98-107) mmol/L Carbon Dioxide 26.4 (21.0-32.0) mmol/L BUN 20 H (7.0-18.0) mg/dL Creatinine 1.4 H (0.6-1.0) mg/dL Est Cr Clr Drug Dosing 37.40 mL/min Estimated GFR (MDRD) 37.4 ml/min Glucose 198 H (74-106) mg/dL Lactic Acid 1.1 (0.4-2.0) mmol/L Calcium 8.5 (8.5-10.1) mg/dL Total Bilirubin 1.5 H (0.2-1.0) mg/dL AST 35 (15-37) IU/L ALT 29 (14-63) IU/L Alkaline Phosphatase 97 (46-116) U/L Troponin I < 0.050 (0.000-0.056) ng/mL B-Natriuretic Peptide (<100) PG/ML Total Protein 5.5 L (6.4-8.2) g/dL Albumin 2.5 L (3.4-5.0) g/dL Globulin 3.0 (2.6-4.0) g/dL Albumin/Globulin Ratio 0.8 L (0.9-1.6) Lipase 20 L (73-393) U/L Urine Color Urine Appearance Urine pH (5.0-8.0) Ur Specific [place] (1.001-1.035) Urine Protein (NEGATIVE) mg/dL Urine Glucose (UA) (NEGATIVE) mg/dL Urine Ketones (NEGATIVE) mg/dL Urine Occult Blood (NEGATIVE) Urine Nitrite (NEGATIVE) Urine Bilirubin (NEGATIVE) Urine Urobilinogen (<2.0) EU/dL Ur Leukocyte Esterase (NEGATIVE) Urine RBC (0-2/HPF) Urine WBC (0-5/HPF) Ur Epithelial Cells (NONE-FEW) Urine Bacteria (NEGATIVE) SARS-CoV-2 RNA (VERO) (NEGATIVE) Blood Type Antibody Screen 12/23/20 12/23/20 12/23/20 Range/Units 11:20 11:56 12:32 WBC (4.0-11.0) K/uL RBC (4.30-5.90) M/uL Hgb (12.0-16.0) g/dL Hct (36.0-46.0) % MCV (80.0-98.0) fL MCH (27.0-32.0) pg MCHC (31.0-37.0) g/dL RDW Std Deviation (28.0-62.0) fl RDW Coeff of [place] (11.0-15.0) % Plt Count (150-400) K/uL MPV (7.40-12.00) fL Neut % (Auto) (48.0-80.0) % Lymph % (Auto) (16.0-40.0) % [place] % (Auto) (0.0-15.0) % Eos % (Auto) (0.0-7.0) % Baso % (Auto) (0.0-1.5) % Neut # (Auto) (1.4-5.7) K/uL Lymph # (Auto) (0.6-2.4) K/uL [place] # (Auto) (0.0-0.8) K/uL Eos # (Auto) (0.0-0.7) K/uL Baso # (Auto) (0.0-0.1) K/uL Nucleated RBC % /100WBC Nucleated RBCs # K/uL Sodium (136-145) mmol/L Potassium (3.5-5.1) mmol/L Chloride (98-107) mmol/L Carbon Dioxide (21.0-32.0) mmol/L BUN (7.0-18.0) mg/dL Creatinine (0.6-1.0) mg/dL Est Cr Clr Drug Dosing mL/min Estimated GFR (MDRD) ml/min Glucose (74-106) mg/dL Lactic Acid (0.4-2.0) mmol/L Calcium (8.5-10.1) mg/dL Total Bilirubin (0.2-1.0) mg/dL AST (15-37) IU/L ALT (14-63) IU/L Alkaline Phosphatase (46-116) U/L Troponin I (0.000-0.056) ng/mL B-Natriuretic Peptide 87 (<100) PG/ML Total Protein (6.4-8.2) g/dL Albumin (3.4-5.0) g/dL Globulin (2.6-4.0) g/dL Albumin/Globulin Ratio (0.9-1.6) Lipase (73-393) U/L Urine Color Urine Appearance Urine pH (5.0-8.0) Ur Specific [place] (1.001-1.035) Urine Protein (NEGATIVE) mg/dL Urine Glucose (UA) (NEGATIVE) mg/dL Urine Ketones (NEGATIVE) mg/dL Urine Occult Blood (NEGATIVE) Urine Nitrite (NEGATIVE) Urine Bilirubin (NEGATIVE) Urine Urobilinogen (<2.0) EU/dL Ur Leukocyte Esterase (NEGATIVE) Urine RBC (0-2/HPF) Urine WBC (0-5/HPF) Ur Epithelial Cells (NONE-FEW) Urine Bacteria (NEGATIVE) SARS-CoV-2 RNA (VERO) NEGATIVE (NEGATIVE) Blood Type O POSITIVE Antibody Screen NEGATIVE 12/23/20 Range/Units 13:00 WBC (4.0-11.0) K/uL RBC (4.30-5.90) M/uL Hgb (12.0-16.0) g/dL Hct (36.0-46.0) % MCV (80.0-98.0) fL MCH (27.0-32.0) pg MCHC (31.0-37.0) g/dL RDW Std Deviation (28.0-62.0) fl RDW Coeff of [place] (11.0-15.0) % Plt Count (150-400) K/uL MPV (7.40-12.00) fL Neut % (Auto) (48.0-80.0) % Lymph % (Auto) (16.0-40.0) % [place] % (Auto) (0.0-15.0) % Eos % (Auto) (0.0-7.0) % Baso % (Auto) (0.0-1.5) % Neut # (Auto) (1.4-5.7) K/uL Lymph # (Auto) (0.6-2.4) K/uL [place] # (Auto) (0.0-0.8) K/uL Eos # (Auto) (0.0-0.7) K/uL Baso # (Auto) (0.0-0.1) K/uL Nucleated RBC % /100WBC Nucleated RBCs # K/uL Sodium (136-145) mmol/L Potassium (3.5-5.1) mmol/L Chloride (98-107) mmol/L Carbon Dioxide (21.0-32.0) mmol/L BUN (7.0-18.0) mg/dL Creatinine (0.6-1.0) mg/dL Est Cr Clr Drug Dosing mL/min Estimated GFR (MDRD) ml/min Glucose (74-106) mg/dL Lactic Acid (0.4-2.0) mmol/L Calcium (8.5-10.1) mg/dL Total Bilirubin (0.2-1.0) mg/dL AST (15-37) IU/L ALT (14-63) IU/L Alkaline Phosphatase (46-116) U/L Troponin I (0.000-0.056) ng/mL B-Natriuretic Peptide (<100) PG/ML Total Protein (6.4-8.2) g/dL Albumin (3.4-5.0) g/dL Globulin (2.6-4.0) g/dL Albumin/Globulin Ratio (0.9-1.6) Lipase (73-393) U/L Urine Color YELLOW Urine Appearance CLOUDY Urine pH 5.5 (5.0-8.0) Ur Specific [place] 1.015 (1.001-1.035) Urine Protein NEGATIVE (NEGATIVE) mg/dL Urine Glucose (UA) 100 H (NEGATIVE) mg/dL Urine Ketones NEGATIVE (NEGATIVE) mg/dL Urine Occult Blood MODERATE H (NEGATIVE) Urine Nitrite NEGATIVE (NEGATIVE) Urine Bilirubin NEGATIVE (NEGATIVE) Urine Urobilinogen 0.2 (<2.0) EU/dL Ur Leukocyte Esterase MODERATE H (NEGATIVE) Urine RBC 3-5 (0-2/HPF) Urine WBC TO NUMEROUS TO COUNT H (0-5/HPF) Ur Epithelial Cells RARE (NONE-FEW) Urine Bacteria 3+ H (NEGATIVE) SARS-CoV-2 RNA (VERO) (NEGATIVE) Blood Type Antibody Screen Meds: Medications Generic Name Dose Route Start Last Admin Trade Name Abdoulaye PRN Reason Stop Dose Admin Ceftriaxone Sodium/Dextrose 1 50 mls @ 100 mls/hr 12/23/20 13:25 gm/ Premix IV 12/23/20 13:54 ONETIME ONE Sodium Chloride 10 ml 12/23/20 11:09 12/23/20 11:58 Sodium Chloride 0.9% 10 Ml Syringe FLUSH 10 ml ASDIRECTED PRN Administration Keep Vein Open Sodium Chloride 2.5 ml 12/23/20 11:09 12/23/20 11:58 Sodium Chloride 0.9% 2.5 Ml Syringe FLUSH 2.5 ml ASDIRECTED PRN Administration Keep Vein Open Discontinued Medications Generic Name Dose Route Start Last Admin Trade Name Abdoulaye PRN Reason Stop Dose Admin Sodium Chloride 1,000 mls @ 999 mls/hr 12/23/20 11:09 12/23/20 11:57 Normal Saline IV 12/23/20 12:09 999 mls/hr BOLUS ONE Administration Pantoprazole Sodium 80 mg/ 20 mls @ 420 mls/hr 12/23/20 11:13 12/23/20 11:58 Sodium Chloride IVPUSH 12/23/20 11:15 420 mls/hr ONETIME ONE Administration Ondansetron HCl 4 mg 12/23/20 11:11 12/23/20 11:58 Ondansetron 4 Mg/2 Ml Sdv IVPUSH 12/23/20 11:12 4 mg ONETIME ONE Administration - Re-Assessments/Exams Free Text/Narrative Re-Assessment/Exam: 12/23/20 13:03 Rectal exam reveals soft brown stool which is guaiac negative. Patient is now also complaining of pain in her right leg from a fall greater than 1 week ago. She does have some ecchymosis to the right leg but no sign of fracture. 12/23/20 13:07 Patient's labs are unremarkable. Still pending the UA. CT imaging does reveal an age-indeterminate compression fracture at T5 and T9. Chronic compression fractures are noted at L1 and L3. CT abdomen pelvis grossly unremarkable aside from possible cystitis. CT chest does show a hiatal hernia with thickened esophagus and esophagitis versus esophageal malignancy. CT head is unremarkable. 12/23/20 13:48 Urinalysis shows evidence of urinary tract infection. Rocephin ordered. I had a long discussion with patient regarding disposition. Patient does not feel comfortable going home right now and states that she "wants to get a handle on this UTI" before going home. I spoke with her about potential observation admission overnight. She is agreeable with this plan. Will give Percocet for pain. Spoke with hospitalist who agrees with plan. Departure - Departure Time of Disposition: 13:49 Disposition: Refer to Observation Condition: Good Clinical Impression: Compression fracture of body of thoracic vertebra, Esophagitis UTI (urinary tract infection) Qualifiers: Urinary tract infection type: site unspecified Hematuria presence: without hematuria Qualified Code(s): N39.0 - Urinary tract infection, site not specified - Discharge Information Referrals: Salvador Gonzáles MD [Primary Care Provider] - Forms: ED Department Discharge Sepsis Event Note (ED) - Focused Exam Vital Signs: Vital Signs Temp Pulse Resp BP Pulse Ox 12/23/20 11:10 97.8 F 90 18 122/78 97 - My Orders Last 24 Hours: My Active Orders 12/23/20 13:25 cefTRIAXone [Rocephin in Dextrose,Iso-Osm 1 GM/50 ML] 1 gm Premix Bag 1 bag IV ONETIME 12/23/20 13:48 Acetaminophen/oxyCODONE [Percocet 325-10 MG] 1 tab PO ONETIME ONE - Assessment/Plan Last 24 Hours: My Active Orders 12/23/20 13:25 cefTRIAXone [Rocephin in Dextrose,Iso-Osm 1 GM/50 ML] 1 gm Premix Bag 1 bag IV ONETIME 12/23/20 13:48 Acetaminophen/oxyCODONE [Percocet 325-10 MG] 1 tab PO ONETIME ONE
[2020-12-23 12:04] LABS: BLOOD UREA NITROGEN,BUN 20 mg/dL (7.0-18.0); CARBON DIOXIDE,CO2 26.4 mmol/L (21.0-32.0); CHLORIDE,CL 102 mmol/L (98-107); GLUCOSE RANDOM 198 mg/dL (74-106); LIPASE 20 U/L (73-393); POTASSIUM,K 4.1 mmol/L (3.5-5.1); SODIUM,NA 136 mmol/L (136-145)
--- NOTE | 2020-12-23 12:19 | CT ---
Indication: Fall, history of blood thinners Technique: Volumetric multidetector CT images of the head were obtained without the administration of low osmolar intravenous contrast. Comparison: CT head October 03, 2020 Findings: There is no intra-axial or extra-axial fluid collection. There is no mass effect or midline shift. There is age-related cortical atrophy with mild sulcal widening and ex vacuo dilatation of the lateral ventricles. There are chronic small vessel disease changes in the subcortical and periventricular white matter without lost rausch-white differentiation. The orbits and their contents are grossly within normal limits. The bony calvarium is grossly intact. There is mild frontal hyperostosis again seen. The paranasal sinuses are clear. The mastoid air cells are well aerated. Impression: Stable age-related and chronic small-vessel disease changes of the brain without acute intracranial abnormality. Please note that all CT scans at this facility use dose modulation, iterative reconstruction, and/or weight-based dosing when appropriate to reduce radiation dose to as low as reasonably achievable. Dictated by Bro Beal MD @ 12/23/2020 12:17:[address] Bro Beal @ Dec 23 2020 12:17PM
--- NOTE | 2020-12-23 12:23 | CT ---
Indication: Fall on blood thinners Technique: Volumetric multidetector CT images of the cervical spine were obtained without the administration of IV contrast. Comparison: None available. Findings: The cervical vertebral body heights are grossly maintained. There is mild straightening of the normal cervical lordosis with anterolisthesis of C3 on C4, C4 on C5 and C5 on C6. There is no displaced fracture or dislocation. There is mild to moderate multilevel degenerative disc disease with disc height loss and marginal osteophyte formation. There is mild to moderate facet arthrosis. The partially visualized lung apices demonstrate minimal ground-glass opacities within the left greater than right lung apices. Impression: Moderate multilevel degenerative changes of the cervical spine without evidence of acute osseous abnormality. Please note that all CT scans at this facility use dose modulation, iterative reconstruction, and/or weight-based dosing when appropriate to reduce radiation dose to as low as reasonably achievable. Dictated by Bro Beal MD @ 12/23/2020 12:21:[address] Bro Beal @ Dec 23 2020 12:21PM
--- NOTE | 2020-12-23 12:31 | CT ---
Indication: Fall, hematemesis Technique: Volumetric multidetector CT images of the chest were obtained after the administration of IV contrast. 100 cc Isovue 370 low osmolar intravenous contrast Comparison: None available. Findings: There is likely a small nodule in the inferior left thyroid lobe otherwise the thoracic inlet is unremarkable. There is a right-sided Port-A-Cath in satisfactory position. The thoracic aorta is nonaneurysmal. There is no central filling defect to suggest pulmonary embolism. There is somewhat prominent hilar lymph nodes right greater than left. The trachea and bronchi are well aerated without significant bronchiectasis. There is minimal dependent basilar atelectasis versus parenchymal scar without evidence of dense consolidation, effusion, or pneumothorax. There is marked thickening of the midesophagus with absence of paraesophageal fat planes. There is a moderate hiatal hernia with mucosal hyperemia. There are likely reactive periaortic lymph nodes the largest seen on series 201, image 96 measuring 1.3 centimeters. There is prior cholecystectomy. There are age-indeterminate compression deformities of the superior T5, T9, and superior L1 levels. There is moderate degenerative disc disease with vacuum disc phenomenon and small calcified disc protrusions. There is moderate facet arthrosis. Impression: Demonstration of marked thickening of the esophagus with obliteration of paraesophageal fat planes which may represent extensive esophagitis changes. Underlying esophageal malignancy is not entirely excluded. There is moderate hiatal hernia with mucosal hyperemia which could represent additional infectious/inflammatory changes. There are reactive retroperitoneal and periaortic lymph nodes. Otherwise, no acute cardiopulmonary abnormality. Multiple somewhat age indeterminate deformities of the thoracic vertebral bodies are appreciated without evidence of obvious, displaced acute fracture. Please note that all CT scans at this facility use dose modulation, iterative reconstruction, and/or weight-based dosing when appropriate to reduce radiation dose to as low as reasonably achievable. Dictated by Bro Beal MD @ 12/23/2020 12:29:[address] Bro Beal @ Dec 23 2020 12:29PM
--- NOTE | 2020-12-23 12:46 | CT ---
Indication: Fall, hematemesis Technique: Volumetric multidetector CT images of the abdomen and pelvis were obtained after the administration of intravenous contrast. 100 cc Isovue 370 low osmolar intravenous contrast Comparison: None available. Findings: The lung bases demonstrate basilar atelectasis versus scar. The liver is grossly normal in attenuation with mild intrahepatic biliary ductal dilatation. The portal vein is patent. There is prior cholecystectomy. There is mild reservoir dilatation of the common bile duct. The spleen is normal in enhancement and size. There is a moderate hiatal hernia otherwise the distal stomach demonstrates mild focal thickening of the gastric antrum which can be associated with peptic ulcer disease. There is mild pancreatic atrophy. The adrenal glands are unremarkable. The kidneys demonstrate preserved corticomedullary differentiation without evidence of obstructive uropathy. There is a moderate to severe amount of stool seen throughout the distal colon with mild fecal impaction. There is a small duodenal diverticulum of the 3rd portion of the duodenum appreciated. The appendix is unremarkable. There is no significant mesenteric, retroperitoneal, or pelvic sidewall lymph nodes. The aorta is non aneurysmal with moderate scattered atherosclerotic calcification. There is prior hysterectomy. There is a markedly distended appearing bladder with moderate thickening of the bladder wall which may represent underlying cystitis changes. There is no evidence of free air or free fluid. There is mild diastasis of the rectus musculature containing fat. There is likely a chronic endplate deformity of the superior L1 and L3 endplates. Otherwise the vertebral body heights are maintained with trace retrolisthesis of L1 on L2. There is moderate multilevel facet arthrosis. Impression: Prior cholecystectomy and hysterectomy. Mild thickening of the gastric antrum which can be seen in the setting of peptic ulcer disease with a moderate hiatal hernia with minimal mucosal hyperemia. Moderate to severe stool seen throughout the colon. Markedly distended, thick-walled appearing bladder which can be seen in the setting of cystitis changes. Correlate with history of clinical symptoms. Please note that all CT scans at this facility use dose modulation, iterative reconstruction, and/or weight-based dosing when appropriate to reduce radiation dose to as low as reasonably achievable. Dictated by Bro Beal MD @ 12/23/2020 12:44:[address] Bro Beal @ Dec 23 2020 12:44PM
--- NOTE | 2020-12-23 12:52 | CT ---
Indication: Fall Technique: Volumetric multidetector CT images of the thoracic spine were obtained without the administration of IV contrast. Comparison: None available. Findings: The thoracic vertebral body heights demonstrate age indeterminate endplate deformity of the superior T5 and T9 levels. Additional endplate Schmorl`s defects are appreciated. There is partial visualization of likely chronic deformity of the superior L1 vertebral body. There is mild straightening of the normal thoracic kyphosis without evidence of significant spondylolisthesis. There is mild levo scoliotic deformity of the AP alignment. There is moderate to severe degenerative disc disease with disc height loss and vacuum disc phenomenon at multiple levels. There is no significant spinal canal stenosis or neural foraminal narrowing. There is no displaced fracture or dislocation. The paraspinous soft tissues are grossly within normal limits. Impression: Age indeterminate compression deformities of the superior T5 and T9 levels without evidence of large, displaced fracture. Mild to moderate degenerative changes as well as spasmodic straightening of the normal thoracic kyphosis. Please note that all CT scans at this facility use dose modulation, iterative reconstruction, and/or weight-based dosing when appropriate to reduce radiation dose to as low as reasonably achievable. Dictated by Bro Beal MD @ 12/23/2020 12:52:[address] Bro Beal @ Dec 23 2020 12:52PM
--- NOTE | 2020-12-23 12:58 | CT ---
Indication: Fall Technique: Volumetric multidetector CT images of the lumbar spine were obtained without the administration of IV contrast. Comparison: None available. Findings: There is a chronic appearing endplate compression deformity of the superior L1 vertebral body. Additional endplate Schmorl`s defect of the superior L3 level is appreciated. There is straightening of the normal lumbar lordosis without significant spondylolisthesis. There is moderate dextroscoliotic deformity of the AP alignment. There is moderate multilevel degenerative disc disease with disc height loss and marginal osteophyte formation. There is no significant spinal canal stenosis or neural foraminal narrowing. There is no displaced fracture or dislocation. The paraspinous soft tissues are grossly within normal limits. Impression: Chronic endplate compression deformities of the L1 and L3 levels without evidence of displaced fracture. Moderate multilevel degenerative and scoliotic changes. Please note that all CT scans at this facility use dose modulation, iterative reconstruction, and/or weight-based dosing when appropriate to reduce radiation dose to as low as reasonably achievable. Dictated by Bro Beal MD @ 12/23/2020 12:57:[address] Bro Beal @ Dec 23 2020 12:57PM
[2020-12-23] MEDS ORDERED: cefTRIAXone 1 GM in Premix Bag 1 BAG IV ONE (13:25)
[2020-12-23] MEDS ORDERED: Acetaminophen/oxyCODONE 325-10 MG Tab PO ONE (13:48)
--- NOTE | 2020-12-23 13:51 | PCM.HP.2 ---
H&P History of Present Illness - General Date of Service: 12/23/20 head Pain Score (Numeric/FACES): 4 - Related Data Allergies/Adverse Reactions: Allergies Allergy/AdvReac Type Severity Reaction Status Date / Time Penicillins Allergy Severe Cannot Verified 12/23/20 11:47 Remember silver Allergy Rash Verified 12/23/20 11:47 [From Tegaderm AG Mesh] tegaderm Allergy Burning Uncoded 12/23/20 11:47 Home Medications: Home Meds Clopidogrel [Plavix] 75 mg PO DAILY 06/18/17 [History] Losartan [Cozaar] 12.5 mg PO BEDTIME 06/18/17 [History] Nitroglycerin [Nitrostat] 0.4 mg SL ASDIRECTED PRN 06/18/17 [History] atorvaSTATin [Lipitor] 80 mg PO BEDTIME 06/18/17 [History] oxyCODONE 5 mg PO Q4H PRN 06/18/17 [History] Amitriptyline [Elavil] 2 tab PO BEDTIME 10/19/17 [History] DULoxetine [Cymbalta] 60 mg PO DAILY 10/19/17 [History] Furosemide 40 mg PO ASDIRECTED PRN 10/19/17 [History] Insulin Glargine,Hum.Rec.Anlog [Basaglar Kwikpen U-100] 50 units SQ BEDTIME 12/08/17 [History] Levothyroxine [Synthroid] 50 mcg PO DAILY 04/04/19 [History] Cholecalciferol (Vitamin D3) [Vitamin D3] 25 mcg PO DAILY 10/03/20 [History] Fenofibrate Nanocrystallized [Fenofibrate] 48 mg PO DAILY 10/03/20 [History] traMADol [Ultram] 50 mg PO DAILY 10/03/20 [History] InFLIXimab [Remicade] 100 mg IV ASDIRECTED 10/04/20 [History] Acetaminophen [Tylenol] 650 mg PO Q6H PRN tablet 10/08/20 [Rx] Cefdinir [Omnicef] 300 mg PO BID #18 cap 10/08/20 [Rx] Past Medical History HEENT History: Reports: Impaired Vision Cardiovascular History: Reports: Angina, Bypass, Heart Failure, Heart Murmur, High Cholesterol, Hypertension, [place], Stents Other Cardiovascular History: 'partial heart' Respiratory History: Reports: Sleep Apnea Other Respiratory History: pneumonia. Uses bipap at night Gastrointestinal History: Reports: None Genitourinary History: Reports: UTI, Recurrent [employer]ATOR History: Reports: Musculoskeletal History: Reports: Fracture Other Musculoskeletal History: Lower back fracture, Ribs Neurological History: Reports: Concussion, CVA, Headaches, Chronic, Head Trauma, Vertigo, Other (See Below) Other Neuro History: brainstem and spinal cord lesions. stroke in the passed 3 years . Had 2 storkes for the past 3 years. stroke affecting left arm. numbness to left arm. right arm partially numb. Bilateal lower legs are numb. Psychiatric History: Reports: Anxiety, Depression Endocrine/Metabolic History: Reports: Diabetes, Type II, Hypothyroidism Hematologic History: Reports: Other (See Below) Other Hematologic History: Easy bruising, not on anticoagulant therapy Immunologic History: Reports: None Oncologic (Cancer) History: Reports: Lymphoma Dermatologic History: Reports: Eczema - Infectious Disease History Infectious Disease History: Reports: Chicken Pox, Measles, Mumps - Past Surgical History Head Surgeries/Procedures: Reports: None HEENT Surgical History: Reports: Adenoidectomy, Cataract Surgery, Tonsillectomy, Other (See Below) Other HEENT Surgeries/Procedures: Sinus surgery, blepheroplasty Cardiovascular Surgical History: Reports: Other (See Below) Other Cardiovascular Surgeries/Procedures: 3 bypasses, 10 stents Respiratory Surgical History: Reports: None GI Surgical History: Reports: Cholecystectomy Female Surgical History: Reports: Breast Biopsy, Hysterectomy Neurological Surgical History: Reports: None Musculoskeletal Surgical History: Reports: Carpal Tunnel Oncologic Surgical History: Reports: None Dermatological Surgical History: Reports: None Social & Family History - Family History Family Medical History: No Pertinent Family History - Tobacco Use Tobacco Use Status *Q: Never Tobacco User Second Hand Smoke Exposure: No - Caffeine Use Caffeine Use: Reports: None Other Caffeine Use: coffee twice a week - Recreational Drug Use Recreational Drug Use: No - Living Situation & Occupation Living situation: Reports: Alone Occupation: Retired Exam - Vital Signs Vital Signs: Last Vital Signs Temp 97.8 F 12/23/20 11:10 Pulse 90 12/23/20 11:10 Resp 18 12/23/20 11:10 BP 122/78 12/23/20 11:10 Pulse Ox 97 12/23/20 11:10 Weight: 205 lb - Patient Data Lab Results Last 24 hrs: Laboratory Results - last 24 hr 12/23/20 12/23/20 12/23/20 Range/Units 11:20 11:20 11:20 WBC 8.59 (4.0-11.0) K/uL RBC 4.34 (4.30-5.90) M/uL Hgb 13.0 (12.0-16.0) g/dL Hct 37.9 (36.0-46.0) % MCV 87.3 (80.0-98.0) fL MCH 30.0 (27.0-32.0) pg MCHC 34.3 (31.0-37.0) g/dL RDW Std Deviation 45.4 (28.0-62.0) fl RDW Coeff of Aranza 14 (11.0-15.0) % Plt Count 159 (150-400) K/uL MPV 10.10 (7.40-12.00) fL Neut % (Auto) 61.4 (48.0-80.0) % Lymph % (Auto) 25.4 (16.0-40.0) % Green % (Auto) 12.0 (0.0-15.0) % Eos % (Auto) 0.9 (0.0-7.0) % Baso % (Auto) 0.3 (0.0-1.5) % Neut # (Auto) 5.3 (1.4-5.7) K/uL Lymph # (Auto) 2.2 (0.6-2.4) K/uL Green # (Auto) 1.0 H (0.0-0.8) K/uL Eos # (Auto) 0.1 (0.0-0.7) K/uL Baso # (Auto) 0.0 (0.0-0.1) K/uL Nucleated RBC % 0.0 /100WBC Nucleated RBCs # 0 K/uL Sodium 136 (136-145) mmol/L Potassium 4.1 (3.5-5.1) mmol/L Chloride 102 (98-107) mmol/L Carbon Dioxide 26.4 (21.0-32.0) mmol/L BUN 20 H (7.0-18.0) mg/dL Creatinine 1.4 H (0.6-1.0) mg/dL Est Cr Clr Drug Dosing 37.40 mL/min Estimated GFR (MDRD) 37.4 ml/min Glucose 198 H (74-106) mg/dL Lactic Acid 1.1 (0.4-2.0) mmol/L Calcium 8.5 (8.5-10.1) mg/dL Total Bilirubin 1.5 H (0.2-1.0) mg/dL AST 35 (15-37) IU/L ALT 29 (14-63) IU/L Alkaline Phosphatase 97 (46-116) U/L Troponin I < 0.050 (0.000-0.056) ng/mL B-Natriuretic Peptide (<100) PG/ML Total Protein 5.5 L (6.4-8.2) g/dL Albumin 2.5 L (3.4-5.0) g/dL Globulin 3.0 (2.6-4.0) g/dL Albumin/Globulin Ratio 0.8 L (0.9-1.6) Lipase 20 L (73-393) U/L Urine Color Urine Appearance Urine pH (5.0-8.0) Ur Specific [place] (1.001-1.035) Urine Protein (NEGATIVE) mg/dL Urine Glucose (UA) (NEGATIVE) mg/dL Urine Ketones (NEGATIVE) mg/dL Urine Occult Blood (NEGATIVE) Urine Nitrite (NEGATIVE) Urine Bilirubin (NEGATIVE) Urine Urobilinogen (<2.0) EU/dL Ur Leukocyte Esterase (NEGATIVE) Urine RBC (0-2/HPF) Urine WBC (0-5/HPF) Ur Epithelial Cells (NONE-FEW) Urine Bacteria (NEGATIVE) SARS-CoV-2 RNA (VERO) (NEGATIVE) Blood Type Antibody Screen 12/23/20 12/23/20 12/23/20 Range/Units 11:20 11:56 12:32 WBC (4.0-11.0) K/uL RBC (4.30-5.90) M/uL Hgb (12.0-16.0) g/dL Hct (36.0-46.0) % MCV (80.0-98.0) fL MCH (27.0-32.0) pg MCHC (31.0-37.0) g/dL RDW Std Deviation (28.0-62.0) fl RDW Coeff of Aranza (11.0-15.0) % Plt Count (150-400) K/uL MPV (7.40-12.00) fL Neut % (Auto) (48.0-80.0) % Lymph % (Auto) (16.0-40.0) % Green % (Auto) (0.0-15.0) % Eos % (Auto) (0.0-7.0) % Baso % (Auto) (0.0-1.5) % Neut # (Auto) (1.4-5.7) K/uL Lymph # (Auto) (0.6-2.4) K/uL Green # (Auto) (0.0-0.8) K/uL Eos # (Auto) (0.0-0.7) K/uL Baso # (Auto) (0.0-0.1) K/uL Nucleated RBC % /100WBC Nucleated RBCs # K/uL Sodium (136-145) mmol/L Potassium (3.5-5.1) mmol/L Chloride (98-107) mmol/L Carbon Dioxide (21.0-32.0) mmol/L BUN (7.0-18.0) mg/dL Creatinine (0.6-1.0) mg/dL Est Cr Clr Drug Dosing mL/min Estimated GFR (MDRD) ml/min Glucose (74-106) mg/dL Lactic Acid (0.4-2.0) mmol/L Calcium (8.5-10.1) mg/dL Total Bilirubin (0.2-1.0) mg/dL AST (15-37) IU/L ALT (14-63) IU/L Alkaline Phosphatase (46-116) U/L Troponin I (0.000-0.056) ng/mL B-Natriuretic Peptide 87 (<100) PG/ML Total Protein (6.4-8.2) g/dL Albumin (3.4-5.0) g/dL Globulin (2.6-4.0) g/dL Albumin/Globulin Ratio (0.9-1.6) Lipase (73-393) U/L Urine Color Urine Appearance Urine pH (5.0-8.0) Ur Specific [place] (1.001-1.035) Urine Protein (NEGATIVE) mg/dL Urine Glucose (UA) (NEGATIVE) mg/dL Urine Ketones (NEGATIVE) mg/dL Urine Occult Blood (NEGATIVE) Urine Nitrite (NEGATIVE) Urine Bilirubin (NEGATIVE) Urine Urobilinogen (<2.0) EU/dL Ur Leukocyte Esterase (NEGATIVE) Urine RBC (0-2/HPF) Urine WBC (0-5/HPF) Ur Epithelial Cells (NONE-FEW) Urine Bacteria (NEGATIVE) SARS-CoV-2 RNA (VERO) NEGATIVE (NEGATIVE) Blood Type O POSITIVE Antibody Screen NEGATIVE 12/23/20 Range/Units 13:00 WBC (4.0-11.0) K/uL RBC (4.30-5.90) M/uL Hgb (12.0-16.0) g/dL Hct (36.0-46.0) % MCV (80.0-98.0) fL MCH (27.0-32.0) pg MCHC (31.0-37.0) g/dL RDW Std Deviation (28.0-62.0) fl RDW Coeff of Aranza (11.0-15.0) % Plt Count (150-400) K/uL MPV (7.40-12.00) fL Neut % (Auto) (48.0-80.0) % Lymph % (Auto) (16.0-40.0) % Green % (Auto) (0.0-15.0) % Eos % (Auto) (0.0-7.0) % Baso % (Auto) (0.0-1.5) % Neut # (Auto) (1.4-5.7) K/uL Lymph # (Auto) (0.6-2.4) K/uL Green # (Auto) (0.0-0.8) K/uL Eos # (Auto) (0.0-0.7) K/uL Baso # (Auto) (0.0-0.1) K/uL Nucleated RBC % /100WBC Nucleated RBCs # K/uL Sodium (136-145) mmol/L Potassium (3.5-5.1) mmol/L Chloride (98-107) mmol/L Carbon Dioxide (21.0-32.0) mmol/L BUN (7.0-18.0) mg/dL Creatinine (0.6-1.0) mg/dL Est Cr Clr Drug Dosing mL/min Estimated GFR (MDRD) ml/min Glucose (74-106) mg/dL Lactic Acid (0.4-2.0) mmol/L Calcium (8.5-10.1) mg/dL Total Bilirubin (0.2-1.0) mg/dL AST (15-37) IU/L ALT (14-63) IU/L Alkaline Phosphatase (46-116) U/L Troponin I (0.000-0.056) ng/mL B-Natriuretic Peptide (<100) PG/ML Total Protein (6.4-8.2) g/dL Albumin (3.4-5.0) g/dL Globulin (2.6-4.0) g/dL Albumin/Globulin Ratio (0.9-1.6) Lipase (73-393) U/L Urine Color YELLOW Urine Appearance CLOUDY Urine pH 5.5 (5.0-8.0) Ur Specific [place] 1.015 (1.001-1.035) Urine Protein NEGATIVE (NEGATIVE) mg/dL Urine Glucose (UA) 100 H (NEGATIVE) mg/dL Urine Ketones NEGATIVE (NEGATIVE) mg/dL Urine Occult Blood MODERATE H (NEGATIVE) Urine Nitrite NEGATIVE (NEGATIVE) Urine Bilirubin NEGATIVE (NEGATIVE) Urine Urobilinogen 0.2 (<2.0) EU/dL Ur Leukocyte Esterase MODERATE H (NEGATIVE) Urine RBC 3-5 (0-2/HPF) Urine WBC TO NUMEROUS TO COUNT H (0-5/HPF) Ur Epithelial Cells RARE (NONE-FEW) Urine Bacteria 3+ H (NEGATIVE) SARS-CoV-2 RNA (VERO) (NEGATIVE) Blood Type Antibody Screen Result Diagrams: 12/23/20 11:20 12/23/20 11:20 Sepsis Event Note - Evaluation Sepsis Screening Result: No Definite Risk - Focused Exam Vital Signs: Vital Signs Temp Pulse Resp BP Pulse Ox 12/23/20 11:10 97.8 F 90 18 122/78 97 Orders Last 24hrs: Active Orders 24 hr Category Date Time Status Cardiac Monitoring [RC] . DIRECTED Care 12/23/20 11:09 Active EKG Documentation Completion [RC] STAT Care 12/23/20 11:09 Active CULTURE URINE [MREF] Stat Lab 12/23/20 13:00 Received Sodium Chloride 0.9% [Saline Flush] Med 12/23/20 11:09 Active 10 ml FLUSH ASDIRECTED PRN Sodium Chloride 0.9% [Saline Flush] Med 12/23/20 11:09 Active 2.5 ml FLUSH ASDIRECTED PRN cefTRIAXone [Rocephin in Dextrose,Iso-Osm 1 GM/50 ML] 1 Med 12/23/20 13:25 Active gm Premix Bag 1 bag IV ONETIME Saline Lock Insert [OM.PC] Stat Oth 12/23/20 11:09 Ordered Medication Orders Ceftriaxone Sodium/Dextrose 1 (gm/ Premix) 50 mls @ 100 mls/hr IV ONETIME ONE Stop: 12/23/20 13:54 Sodium Chloride (Sodium Chloride 0.9% 10 Ml Syringe) 10 ml FLUSH ASDIRECTED PRN PRN Reason: Keep Vein Open Last Admin: 12/23/20 11:58 Dose: 10 ml Documented by: SHERRI Sodium Chloride (Sodium Chloride 0.9% 2.5 Ml Syringe) 2.5 ml FLUSH ASDIRECTED PRN PRN Reason: Keep Vein Open Last Admin: 12/23/20 11:58 Dose: 2.5 ml Documented by: SHERRI
--- NOTE | 2020-12-23 14:22 | PCM.HP.2 ---
H&P History of Present Illness - General Date of Service: 12/23/20 Admit Problem/Dx: Admission Diagnosis/Problem Admission Diagnosis/Problem UTI (urinary tract infection), uncomplicated - History of Present Illness Initial Comments - Free Text/Narative: 70-year-old female presents to the emergency department due to generalized weakness and multiple falls in the prior week, admitted for urinary tract infection. Per documentation patient states that she fell last Wednesday when try to get into her vehicle. Patient states she fell on her buttocks, hitting and rolling over onto her right shoulder. Patient states that she hit her head, injured her back. Patient did not report losing consciousness. Patient reports pain to lower back, abdominal pain. Patient states not having a bowel movement in many days. Patient also complains of nausea and vomiting. Per documentation patient had dark coffee ground emesis. Patient denies chest pain, denies orthopnea, denies shortness of breath, denies pedal edema. Patient denies bloody stool. Patient denies dysuria, hematuria. Past medical history to include TIAs, CAD post CABG and multiple stents on Plavix, CHF, and UTIs, lymphoma, spinal metastasis on infliximab, hypertension, diabetes, hyperlipidemia. ED workup includes labs, white blood cell count 8.5, BUN 20, creatinine 1.4. Urinalysis shows moderate leukocyte esterase, 3+ urine bacteria, urine WBC. Urine cultures pending. CT chest shows marked thickening of esophagus, underlying malignancy is not entirely excluded. Moderate hiatal hernia with mucosal hyperemia which could represent additional infectious/ inflammatory changes. CT abdomen pelvis impression-prior cholecystectomy and hysterectomy, thickening of the gastric antrum could be seen in setting of peptic ulcer disease. Moderat e to severe stool seen throughout the colon. Markedly distended thick-walled appearing bladder seen in the setting cystitis changes. Lumbar spine CT impression, chronic compression deformities of L1 and L2 levels without evidence of displaced fracture or dislocation. Cervical spine CT impression, multilevel degenerative changes of the cervical spine without evidence of acute osseous abnormality. Thoracic spine CT impression, age-indeterminate compression deformities of superior T5 and T9 levels without evidence of a large displaced fracture. Mild to moderate degenerative changes as well as spasmodic straightening of the normal thoracic kyphosis Patient to be admitted for urinary tract infection and suspected cystitis per CT abdomen. Patient be started on IV antibiotics. head Pain Score (Numeric/FACES): 4 Generalized Pain Score (Numeric/FACES): 5 - Related Data Allergies/Adverse Reactions: Allergies Allergy/AdvReac Type Severity Reaction Status Date / Time Penicillins Allergy Severe Cannot Verified 12/23/20 15:54 Remember silver Allergy Rash Verified 12/23/20 15:54 [From Tegaderm AG Mesh] tegaderm Allergy Burning Uncoded 12/23/20 15:54 Home Medications: Home Meds Clopidogrel [Plavix] 75 mg PO DAILY 06/18/17 [History] Losartan [Cozaar] 12.5 mg PO BEDTIME 06/18/17 [History] Nitroglycerin [Nitrostat] 0.4 mg SL ASDIRECTED PRN 06/18/17 [History] atorvaSTATin [Lipitor] 80 mg PO BEDTIME 06/18/17 [History] oxyCODONE 10 mg PO Q6H PRN 06/18/17 [History] Amitriptyline [Elavil] 2 tab PO BEDTIME 10/19/17 [History] DULoxetine [Cymbalta] 60 mg PO DAILY 10/19/17 [History] Furosemide 40 mg PO ASDIRECTED PRN 10/19/17 [History] Insulin Glargine,Hum.Rec.Anlog [Basaglar Kwikpen U-100] 40 units SQ BEDTIME 12/08/17 [History] Levothyroxine [Synthroid] 50 mcg PO ACBREAKFAST 04/04/19 [History] Cholecalciferol (Vitamin D3) [Vitamin D3] 25 mcg PO DAILY 10/03/20 [History] Fenofibrate Nanocrystallized [Fenofibrate] 48 mg PO DAILY 10/03/20 [History] InFLIXimab [Remicade] 100 mg IV ASDIRECTED 10/04/20 [History] Acetaminophen [Tylenol] 650 mg PO Q6H PRN tablet 10/08/20 [Rx] Midodrine 5 mg PO TID 12/23/20 [History] Past Medical History HEENT History: Reports: Impaired Vision Cardiovascular History: Reports: Angina, Bypass, Heart Failure, Heart Murmur, High Cholesterol, Hypertension, GA, Stents Other Cardiovascular History: 'partial heart' Respiratory History: Reports: Sleep Apnea Other Respiratory History: pneumonia. 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 stroke in the passed 3 years . Had 2 storkes for the past 3 years. stroke affecting left arm. numbness to left arm. right arm partially numb. Bilateal lower legs are numb. Psychiatric History: Reports: Anxiety, Depression Endocrine/Metabolic History: Reports: Diabetes, Type II, Hypothyroidism Hematologic History: Reports: Other (See Below) Other Hematologic History: Easy bruising, not on anticoagulant therapy Immunologic History: Reports: None Oncologic (Cancer) History: Reports: Lymphoma Dermatologic History: Reports: Eczema - Infectious Disease History Infectious Disease History: Reports: Chicken Pox, Measles, Mumps - Past Surgical History Head Surgeries/Procedures: Reports: None HEENT Surgical History: Reports: Adenoidectomy, Cataract Surgery, Tonsillectomy, Other (See Below) Other HEENT Surgeries/Procedures: Sinus surgery, blepheroplasty Cardiovascular Surgical History: Reports: Other (See Below) Other Cardiovascular Surgeries/Procedures: 3 bypasses, 10 stents Respiratory Surgical History: Reports: None GI Surgical History: Reports: Cholecystectomy Female Surgical History: Reports: Breast Biopsy, Hysterectomy Neurological Surgical History: Reports: None Musculoskeletal Surgical History: Reports: Carpal Tunnel Oncologic Surgical History: Reports: None Dermatological Surgical History: Reports: None Social & Family History - Family History Family Medical History: No Pertinent Family History - Tobacco Use Tobacco Use Status *Q: Never Tobacco User Second Hand Smoke Exposure: No - Caffeine Use Caffeine Use: Reports: None Other Caffeine Use: coffee twice a week - Recreational Drug Use Recreational Drug Use: No - Living Situation & Occupation Living situation: Reports: Alone Occupation: Retired H&P Review of Systems - Review of Systems: Review Of Systems: See Below General: Reports: Weakness. Denies: Fever, Chills Pulmonary: Denies: Shortness of Breath, Wheezing, Cough Cardiovascular: Denies: Chest Pain, Palpitations, Orthopnea, Edema Gastrointestinal: Reports: Nausea, Vomiting. Denies: Abdominal Pain Genitourinary: Denies: Dysuria, Pain Psychiatric: Denies: Confusion, Depression Neurological: Denies: Confusion, Dizziness, Headache Exam - Exam Exam: See Below - Vital Signs Vital Signs: Last Vital Signs Temp 97.8 F 12/23/20 11:10 Pulse 90 12/23/20 11:10 Resp 18 12/23/20 11:10 BP 122/78 12/23/20 11:10 Pulse Ox 97 12/23/20 11:10 Weight: 205 lb - Exam General: Oriented Lungs: Clear to Auscultation, Normal Respiratory Effort Cardiovascular: Regular Rate, Regular Rhythm GI/Abdominal Exam: Soft, Non-Tender Extremities: No Pedal Edema Neuro Extensive - Mental Status: Alert, Oriented x3 Psychiatric: Alert - Patient Data Lab Results Last 24 hrs: Laboratory Results - last 24 hr 12/23/20 12/23/20 12/23/20 Range/Units 11:20 11:20 11:20 WBC 8.59 (4.0-11.0) K/uL RBC 4.34 (4.30-5.90) M/uL Hgb 13.0 (12.0-16.0) g/dL Hct 37.9 (36.0-46.0) % MCV 87.3 (80.0-98.0) fL MCH 30.0 (27.0-32.0) pg MCHC 34.3 (31.0-37.0) g/dL RDW Std Deviation 45.4 (28.0-62.0) fl RDW Coeff of [place] 14 (11.0-15.0) % Plt Count 159 (150-400) K/uL MPV 10.10 (7.40-12.00) fL Neut % (Auto) 61.4 (48.0-80.0) % Lymph % (Auto) 25.4 (16.0-40.0) % [place] % (Auto) 12.0 (0.0-15.0) % Eos % (Auto) 0.9 (0.0-7.0) % Baso % (Auto) 0.3 (0.0-1.5) % Neut # (Auto) 5.3 (1.4-5.7) K/uL Lymph # (Auto) 2.2 (0.6-2.4) K/uL [place] # (Auto) 1.0 H (0.0-0.8) K/uL Eos # (Auto) 0.1 (0.0-0.7) K/uL Baso # (Auto) 0.0 (0.0-0.1) K/uL Nucleated RBC % 0.0 /100WBC Nucleated RBCs # 0 K/uL Sodium 136 (136-145) mmol/L Potassium 4.1 (3.5-5.1) mmol/L Chloride 102 (98-107) mmol/L Carbon Dioxide 26.4 (21.0-32.0) mmol/L BUN 20 H (7.0-18.0) mg/dL Creatinine 1.4 H (0.6-1.0) mg/dL Est Cr Clr Drug Dosing 37.40 mL/min Estimated GFR (MDRD) 37.4 ml/min Glucose 198 H (74-106) mg/dL Lactic Acid 1.1 (0.4-2.0) mmol/L Calcium 8.5 (8.5-10.1) mg/dL Total Bilirubin 1.5 H (0.2-1.0) mg/dL AST 35 (15-37) IU/L ALT 29 (14-63) IU/L Alkaline Phosphatase 97 (46-116) U/L Troponin I < 0.050 (0.000-0.056) ng/mL B-Natriuretic Peptide (<100) PG/ML Total Protein 5.5 L (6.4-8.2) g/dL Albumin 2.5 L (3.4-5.0) g/dL Globulin 3.0 (2.6-4.0) g/dL Albumin/Globulin Ratio 0.8 L (0.9-1.6) Lipase 20 L (73-393) U/L Urine Color Urine Appearance Urine pH (5.0-8.0) Ur Specific [place] (1.001-1.035) Urine Protein (NEGATIVE) mg/dL Urine Glucose (UA) (NEGATIVE) mg/dL Urine Ketones (NEGATIVE) mg/dL Urine Occult Blood (NEGATIVE) Urine Nitrite (NEGATIVE) Urine Bilirubin (NEGATIVE) Urine Urobilinogen (<2.0) EU/dL Ur Leukocyte Esterase (NEGATIVE) Urine RBC (0-2/HPF) Urine WBC (0-5/HPF) Ur Epithelial Cells (NONE-FEW) Urine Bacteria (NEGATIVE) SARS-CoV-2 RNA (VERO) (NEGATIVE) Blood Type Antibody Screen 12/23/20 12/23/20 12/23/20 Range/Units 11:20 11:56 12:32 WBC (4.0-11.0) K/uL RBC (4.30-5.90) M/uL Hgb (12.0-16.0) g/dL Hct (36.0-46.0) % MCV (80.0-98.0) fL MCH (27.0-32.0) pg MCHC (31.0-37.0) g/dL RDW Std Deviation (28.0-62.0) fl RDW Coeff of [place] (11.0-15.0) % Plt Count (150-400) K/uL MPV (7.40-12.00) fL Neut % (Auto) (48.0-80.0) % Lymph % (Auto) (16.0-40.0) % [place] % (Auto) (0.0-15.0) % Eos % (Auto) (0.0-7.0) % Baso % (Auto) (0.0-1.5) % Neut # (Auto) (1.4-5.7) K/uL Lymph # (Auto) (0.6-2.4) K/uL [place] # (Auto) (0.0-0.8) K/uL Eos # (Auto) (0.0-0.7) K/uL Baso # (Auto) (0.0-0.1) K/uL Nucleated RBC % /100WBC Nucleated RBCs # K/uL Sodium (136-145) mmol/L Potassium (3.5-5.1) mmol/L Chloride (98-107) mmol/L Carbon Dioxide (21.0-32.0) mmol/L BUN (7.0-18.0) mg/dL Creatinine (0.6-1.0) mg/dL Est Cr Clr Drug Dosing mL/min Estimated GFR (MDRD) ml/min Glucose (74-106) mg/dL Lactic Acid (0.4-2.0) mmol/L Calcium (8.5-10.1) mg/dL Total Bilirubin (0.2-1.0) mg/dL AST (15-37) IU/L ALT (14-63) IU/L Alkaline Phosphatase (46-116) U/L Troponin I (0.000-0.056) ng/mL B-Natriuretic Peptide 87 (<100) PG/ML Total Protein (6.4-8.2) g/dL Albumin (3.4-5.0) g/dL Globulin (2.6-4.0) g/dL Albumin/Globulin Ratio (0.9-1.6) Lipase (73-393) U/L Urine Color Urine Appearance Urine pH (5.0-8.0) Ur Specific [place] (1.001-1.035) Urine Protein (NEGATIVE) mg/dL Urine Glucose (UA) (NEGATIVE) mg/dL Urine Ketones (NEGATIVE) mg/dL Urine Occult Blood (NEGATIVE) Urine Nitrite (NEGATIVE) Urine Bilirubin (NEGATIVE) Urine Urobilinogen (<2.0) EU/dL Ur Leukocyte Esterase (NEGATIVE) Urine RBC (0-2/HPF) Urine WBC (0-5/HPF) Ur Epithelial Cells (NONE-FEW) Urine Bacteria (NEGATIVE) SARS-CoV-2 RNA (VERO) NEGATIVE (NEGATIVE) Blood Type O POSITIVE Antibody Screen NEGATIVE 12/23/20 Range/Units 13:00 WBC (4.0-11.0) K/uL RBC (4.30-5.90) M/uL Hgb (12.0-16.0) g/dL Hct (36.0-46.0) % MCV (80.0-98.0) fL MCH (27.0-32.0) pg MCHC (31.0-37.0) g/dL RDW Std Deviation (28.0-62.0) fl RDW Coeff of [place] (11.0-15.0) % Plt Count (150-400) K/uL MPV (7.40-12.00) fL Neut % (Auto) (48.0-80.0) % Lymph % (Auto) (16.0-40.0) % [place] % (Auto) (0.0-15.0) % Eos % (Auto) (0.0-7.0) % Baso % (Auto) (0.0-1.5) % Neut # (Auto) (1.4-5.7) K/uL Lymph # (Auto) (0.6-2.4) K/uL [place] # (Auto) (0.0-0.8) K/uL Eos # (Auto) (0.0-0.7) K/uL Baso # (Auto) (0.0-0.1) K/uL Nucleated RBC % /100WBC Nucleated RBCs # K/uL Sodium (136-145) mmol/L Potassium (3.5-5.1) mmol/L Chloride (98-107) mmol/L Carbon Dioxide (21.0-32.0) mmol/L BUN (7.0-18.0) mg/dL Creatinine (0.6-1.0) mg/dL Est Cr Clr Drug Dosing mL/min Estimated GFR (MDRD) ml/min Glucose (74-106) mg/dL Lactic Acid (0.4-2.0) mmol/L Calcium (8.5-10.1) mg/dL Total Bilirubin (0.2-1.0) mg/dL AST (15-37) IU/L ALT (14-63) IU/L Alkaline Phosphatase (46-116) U/L Troponin I (0.000-0.056) ng/mL B-Natriuretic Peptide (<100) PG/ML Total Protein (6.4-8.2) g/dL Albumin (3.4-5.0) g/dL Globulin (2.6-4.0) g/dL Albumin/Globulin Ratio (0.9-1.6) Lipase (73-393) U/L Urine Color YELLOW Urine Appearance CLOUDY Urine pH 5.5 (5.0-8.0) Ur Specific [place] 1.015 (1.001-1.035) Urine Protein NEGATIVE (NEGATIVE) mg/dL Urine Glucose (UA) 100 H (NEGATIVE) mg/dL Urine Ketones NEGATIVE (NEGATIVE) mg/dL Urine Occult Blood MODERATE H (NEGATIVE) Urine Nitrite NEGATIVE (NEGATIVE) Urine Bilirubin NEGATIVE (NEGATIVE) Urine Urobilinogen 0.2 (<2.0) EU/dL Ur Leukocyte Esterase MODERATE H (NEGATIVE) Urine RBC 3-5 (0-2/HPF) Urine WBC TO NUMEROUS TO COUNT H (0-5/HPF) Ur Epithelial Cells RARE (NONE-FEW) Urine Bacteria 3+ H (NEGATIVE) SARS-CoV-2 RNA (VERO) (NEGATIVE) Blood Type Antibody Screen Result Diagrams: 12/23/20 11:20 12/23/20 11:20 Sepsis Event Note - Evaluation Sepsis Screening Result: No Definite Risk - Focused Exam Vital Signs: Vital Signs Temp Pulse Resp BP Pulse Ox 12/23/20 11:10 97.8 F 90 18 122/78 97 - Problem List (1) Esophagitis SNOMED Code(s): 49287170 ICD Code: K20.90 - ESOPHAGITIS, UNSPECIFIED WITHOUT BLEEDING Status: Acute Current Visit: Yes (2) UTI (urinary tract infection) SNOMED Code(s): 90946658 ICD Code: N39.0 - URINARY TRACT INFECTION, SITE NOT SPECIFIED Status: Acute Priority: High Current Visit: Yes Qualifiers: Urinary tract infection type: site unspecified Hematuria presence: without hematuria Qualified Code(s): N39.0 - Urinary tract infection, site not specified (3) DM type 2 (diabetes mellitus, type 2) SNOMED Code(s): 02524364 ICD Code: E11.9 - TYPE 2 DIABETES MELLITUS WITHOUT COMPLICATIONS Status: Acute Current Visit: Yes Qualifiers: Diabetes mellitus intermediate insulin use: with intermediate use Diabetes mellitus complication status: with circulatory complication Diabetes mellitus complication detail: with other circulatory complications Qualified Code(s): E11.59 - Type 2 diabetes mellitus with other circulatory complications; Z79.4 - jail (current) use of insulin (4) Fall SNOMED Code(s): 6809978, 813678655 ICD Code: W19.XXXA - UNSPECIFIED FALL, INITIAL ENCOUNTER Status: Acute Current Visit: Yes Qualifiers: Encounter type: initial encounter Qualified Code(s): W19.XXXA - Unspecified fall, initial encounter (5) Headache SNOMED Code(s): 45340281 ICD Code: R51 - HEADACHE * DO NOT USE * Status: Acute Current Visit: Yes Qualifiers: Headache type: unspecified Headache chronicity pattern: unspecified pattern Intractability: not intractable (6) History of UTI SNOMED Code(s): 7880120015546, 9634452474802 ICD Code: Z87.440 - PERSONAL HISTORY OF URINARY (TRACT) INFECTIONS Status: Acute Current Visit: Yes (7) CAD (coronary artery disease) SNOMED Code(s): 51867160 ICD Code: I25.10 - ATHSCL HEART DISEASE OF [place] CORONARY ARTERY W/O ANG PCTRS Status: Chronic Priority: Medium Current Visit: Yes Qualifiers: Coronary Disease-Associated Artery/Lesion type: unspecified vessel or lesion type [place] vs. transplanted heart: [place] heart Associated angina: without angina Qualified Code(s): I25.10 - Atherosclerotic heart disease of [place] coronary artery without angina pectoris (8) HTN (hypertension) SNOMED Code(s): 51113083 ICD Code: I10 - ESSENTIAL (PRIMARY) HYPERTENSION Status: Chronic Priority: Medium Current Visit: Yes Qualifiers: Hypertension type: unspecified Qualified Code(s): I10 - Essential (primary) hypertension Problem List Initiated/Reviewed/Updated: Yes Orders Last 24hrs: Active Orders 24 hr Category Date Time Status Patient Status [ADT] Routine ADT 12/23/20 14:12 Active Cardiac Monitoring [RC] . DIRECTED Care 12/23/20 11:09 Active EKG Documentation Completion [RC] STAT Care 12/23/20 11:09 Active CULTURE URINE [MREF] Stat Lab 12/23/20 13:00 Received Sodium Chloride 0.9% [Saline Flush] Med 12/23/20 11:09 Active 10 ml FLUSH ASDIRECTED PRN Sodium Chloride 0.9% [Saline Flush] Med 12/23/20 11:09 Active 2.5 ml FLUSH ASDIRECTED PRN Saline Lock Insert [OM.PC] Stat Oth 12/23/20 11:09 Ordered Medication Orders Sodium Chloride (Sodium Chloride 0.9% 10 Ml Syringe) 10 ml FLUSH ASDIRECTED PRN PRN Reason: Keep Vein Open Last Admin: 12/23/20 11:58 Dose: 10 ml Documented by: SHERRI Sodium Chloride (Sodium Chloride 0.9% 2.5 Ml Syringe) 2.5 ml FLUSH ASDIRECTED PRN PRN Reason: Keep Vein Open Last Admin: 12/23/20 11:58 Dose: 2.5 ml Documented by: SHERRI Assessment/Plan Comment:: Cystitis/UTI-1 g Rocephin every 24 hours, normal saline 75 mL/hr (1 bag), urine culture pending Constipation-MiraLAX bedtime, will increase MiraLAX dosage and/or use enema if patient's constipation is not resolving. Esophagitis-per CT findings patient has significant gastritis which may be contributing to esophagitis. Patient started on 40 mg Protonix IV every 24 hours. Cardiac History- Includes GA, CHF, Stent placements, HTN. Telemetry, resume plavix, resume losartan. Hold lasix. Hypothyroidism- Levothyroxine Diabetes- SSI, diabetic diet, [place]
[2020-12-23] MEDS ORDERED: Nitroglycerin 0.4 MG Tab.SL SL PRN (15:39)
[2020-12-23] MEDS ORDERED: Sodium Chloride 0.9% 1,000 ML IV SCH ×2 (15:45→16:30)
[2020-12-23] MEDS ORDERED: Glucagon,Human Recombinant 1 MG Vial IM PRN ×2 (16:46→16:48)
[2020-12-23] MEDS ORDERED: 50% Dextrose in Water 50 ML Syringe IVPUSH PRN ×2 (16:46→16:48)
--- NOTE | 2020-12-23 16:57 | US ---
INDICATION: PAIN RT KNEE AREA, HX CANCER TECHNIQUE: Ultrasound venous duplex right lower extremity. COMPARISON: None. FINDINGS: The right common femoral, superficial femoral, deep femoral, popliteal, posterior tibial, and greater saphenous veins are fully compressible with normal waveforms. IMPRESSION: Normal ultrasound of the right lower extremity veins. Dictated by: Abel Gann MD @ 12/23/2020 16:56:41 (Electronically Signed)
[2020-12-23] MEDS ORDERED: oxyCODONE 5 MG Tab PO PRN (17:00)
[2020-12-23] MEDS ORDERED: Iopamidol 755 MG/ML 500 ML Multipack Bottle IVPUSH STA (17:16)
[2020-12-23] MEDS: Insulin Aspart 100 Units/ML 3 ML Pen SUBCUT SCH (17:30)
[2020-12-23] MEDS ORDERED: Losartan 50 MG Tab PO SCH (21:00)
[2020-12-23] MEDS ORDERED: Polyethylene Glycol 3350 Powder 17 GM Packet PO SCH (21:00)
[2020-12-23] MEDS: atorvaSTATin 40 MG Tab PO SCH (21:11)
[2020-12-23] MEDS: Amitriptyline 10 MG Tab PO SCH (21:18)
[2020-12-23] MEDS: Insulin Glargine,Human Rec. Analog 100 Units/ML 3 ML Pen SUBCUT SCH (21:20)
[2020-12-24] MEDS ORDERED: cefTRIAXone 1 GM in Sodium Chloride 0.9% 50 ML IV SCH (01:00)
[2020-12-24] MEDS: Acetaminophen 325 MG Tab PO PRN ×2 (03:04→22:22)
[2020-12-24] MEDS: Levothyroxine 50 MCG Tab PO SCH (07:00)
[2020-12-24 07:12] LABS: CARBON DIOXIDE,CO2 29.2 mmol/L (21.0-32.0); POTASSIUM,K 3.9 mmol/L (3.5-5.1)
[2020-12-24] MEDS: Insulin Aspart 100 Units/ML 3 ML Pen SUBCUT SCH ×3 (07:16→17:14)
[2020-12-24] MEDS: Clopidogrel 75 MG Tab PO SCH (08:27)
[2020-12-24] MEDS: DULoxetine 60 MG Cap PO SCH (08:27)
[2020-12-24] MEDS ORDERED: traMADol 50 MG Tab PO SCH (09:00)
[2020-12-24] MEDS: Polyethylene Glycol 3350 Powder 17 GM Packet PO SCH ×2 (10:13→20:31)
[2020-12-24] MEDS: Pantoprazole 40 MG in Sodium Chloride 0.9% 10 ML IV SCH (10:15)
--- NOTE | 2020-12-24 11:47 | PCM.PN ---
- General Info Date of Service: 12/24/20 Subjective Update: Patient states continued fatigue and generalized weakness this morning. Patient also states that she has not had a bowel movement and has lower abdominal pain. Patient denies dysuria, hearing hematuria, urinary frequency. Patient denies fever, chills, nausea, vomiting. - Review of Systems General: Reports: Weakness, Fatigue. Denies: Chills Pulmonary: Denies: Shortness of Breath, Cough Cardiovascular: Denies: Chest Pain, Dyspnea on Exertion Gastrointestinal: Reports: Abdominal Pain, Constipation, Decreased Appetite. Denies: Nausea, Vomiting Neurological: Denies: Dizziness, Headache Psychiatric: Denies: Confusion, Depression - Patient Data Vitals - Most Recent: Last Vital Signs Temp 97.2 F 12/24/20 08:06 Pulse 80 12/24/20 08:06 Resp 18 12/24/20 08:06 BP 107/58 L 12/24/20 08:06 Pulse Ox 91 L 12/24/20 08:06 Weight - Most Recent: 205 lb 12.8 oz I&O - Last 24 Hours: Intake & Output 12/23/20 12/24/20 12/24/20 22:59 06:59 14:59 Intake Total 491 Output Total 1150 Balance -659 Lab Results Last 24 Hours: Laboratory Results - last 24 hr 12/23/20 12/23/20 12/23/20 Range/Units 11:20 11:20 11:20 WBC (4.0-11.0) K/uL RBC (4.30-5.90) M/uL Hgb (12.0-16.0) g/dL Hct (36.0-46.0) % MCV (80.0-98.0) fL MCH (27.0-32.0) pg MCHC (31.0-37.0) g/dL RDW Std Deviation (28.0-62.0) fl RDW Coeff of Aranza (11.0-15.0) % Plt Count (150-400) K/uL MPV (7.40-12.00) fL Neut % (Auto) (48.0-80.0) % Lymph % (Auto) (16.0-40.0) % [place] % (Auto) (0.0-15.0) % Eos % (Auto) (0.0-7.0) % Baso % (Auto) (0.0-1.5) % Neut # (Auto) (1.4-5.7) K/uL Lymph # (Auto) (0.6-2.4) K/uL [place] # (Auto) (0.0-0.8) K/uL Eos # (Auto) (0.0-0.7) K/uL Baso # (Auto) (0.0-0.1) K/uL Nucleated RBC % /100WBC Nucleated RBCs # K/uL Sodium 136 (136-145) mmol/L Potassium 4.1 (3.5-5.1) mmol/L Chloride 102 (98-107) mmol/L Carbon Dioxide 26.4 (21.0-32.0) mmol/L BUN 20 H (7.0-18.0) mg/dL Creatinine 1.4 H (0.6-1.0) mg/dL Est Cr Clr Drug Dosing 37.40 mL/min Estimated GFR (MDRD) 37.4 ml/min Glucose 198 H (74-106) mg/dL POC Glucose (70-99) mg/dL Lactic Acid 1.1 (0.4-2.0) mmol/L Calcium 8.5 (8.5-10.1) mg/dL Total Bilirubin 1.5 H (0.2-1.0) mg/dL AST 35 (15-37) IU/L ALT 29 (14-63) IU/L Alkaline Phosphatase 97 (46-116) U/L Troponin I < 0.050 (0.000-0.056) ng/mL B-Natriuretic Peptide 87 (<100) PG/ML Total Protein 5.5 L (6.4-8.2) g/dL Albumin 2.5 L (3.4-5.0) g/dL Globulin 3.0 (2.6-4.0) g/dL Albumin/Globulin Ratio 0.8 L (0.9-1.6) Lipase 20 L (73-393) U/L Urine Color Urine Appearance Urine pH (5.0-8.0) Ur Specific [place] (1.001-1.035) Urine Protein (NEGATIVE) mg/dL Urine Glucose (UA) (NEGATIVE) mg/dL Urine Ketones (NEGATIVE) mg/dL Urine Occult Blood (NEGATIVE) Urine Nitrite (NEGATIVE) Urine Bilirubin (NEGATIVE) Urine Urobilinogen (<2.0) EU/dL Ur Leukocyte Esterase (NEGATIVE) Urine RBC (0-2/HPF) Urine WBC (0-5/HPF) Ur Epithelial Cells (NONE-FEW) Urine Bacteria (NEGATIVE) SARS-CoV-2 RNA (VERO) (NEGATIVE) Blood Type Antibody Screen 12/23/20 12/23/20 12/23/20 Range/Units 11:56 12:32 13:00 WBC (4.0-11.0) K/uL RBC (4.30-5.90) M/uL Hgb (12.0-16.0) g/dL Hct (36.0-46.0) % MCV (80.0-98.0) fL MCH (27.0-32.0) pg MCHC (31.0-37.0) g/dL RDW Std Deviation (28.0-62.0) fl RDW Coeff of Aranza (11.0-15.0) % Plt Count (150-400) K/uL MPV (7.40-12.00) fL Neut % (Auto) (48.0-80.0) % Lymph % (Auto) (16.0-40.0) % [place] % (Auto) (0.0-15.0) % Eos % (Auto) (0.0-7.0) % Baso % (Auto) (0.0-1.5) % Neut # (Auto) (1.4-5.7) K/uL Lymph # (Auto) (0.6-2.4) K/uL [place] # (Auto) (0.0-0.8) K/uL Eos # (Auto) (0.0-0.7) K/uL Baso # (Auto) (0.0-0.1) K/uL Nucleated RBC % /100WBC Nucleated RBCs # K/uL Sodium (136-145) mmol/L Potassium (3.5-5.1) mmol/L Chloride (98-107) mmol/L Carbon Dioxide (21.0-32.0) mmol/L BUN (7.0-18.0) mg/dL Creatinine (0.6-1.0) mg/dL Est Cr Clr Drug Dosing mL/min Estimated GFR (MDRD) ml/min Glucose (74-106) mg/dL POC Glucose (70-99) mg/dL Lactic Acid (0.4-2.0) mmol/L Calcium (8.5-10.1) mg/dL Total Bilirubin (0.2-1.0) mg/dL AST (15-37) IU/L ALT (14-63) IU/L Alkaline Phosphatase (46-116) U/L Troponin I (0.000-0.056) ng/mL B-Natriuretic Peptide (<100) PG/ML Total Protein (6.4-8.2) g/dL Albumin (3.4-5.0) g/dL Globulin (2.6-4.0) g/dL Albumin/Globulin Ratio (0.9-1.6) Lipase (73-393) U/L Urine Color YELLOW Urine Appearance CLOUDY Urine pH 5.5 (5.0-8.0) Ur Specific [place] 1.015 (1.001-1.035) Urine Protein NEGATIVE (NEGATIVE) mg/dL Urine Glucose (UA) 100 H (NEGATIVE) mg/dL Urine Ketones NEGATIVE (NEGATIVE) mg/dL Urine Occult Blood MODERATE H (NEGATIVE) Urine Nitrite NEGATIVE (NEGATIVE) Urine Bilirubin NEGATIVE (NEGATIVE) Urine Urobilinogen 0.2 (<2.0) EU/dL Ur Leukocyte Esterase MODERATE H (NEGATIVE) Urine RBC 3-5 (0-2/HPF) Urine WBC TO NUMEROUS TO COUNT H (0-5/HPF) Ur Epithelial Cells RARE (NONE-FEW) Urine Bacteria 3+ H (NEGATIVE) SARS-CoV-2 RNA (VERO) NEGATIVE (NEGATIVE) Blood Type O POSITIVE Antibody Screen NEGATIVE 12/23/20 12/23/20 12/24/20 Range/Units 17:03 21:16 06:15 WBC 6.28 (4.0-11.0) K/uL RBC 3.87 L (4.30-5.90) M/uL Hgb 11.6 L (12.0-16.0) g/dL Hct 34.1 L (36.0-46.0) % MCV 88.1 (80.0-98.0) fL MCH 30.0 (27.0-32.0) pg MCHC 34.0 (31.0-37.0) g/dL RDW Std Deviation 46.2 (28.0-62.0) fl RDW Coeff of Aranza 14 (11.0-15.0) % Plt Count 160 (150-400) K/uL MPV 10.10 (7.40-12.00) fL Neut % (Auto) 46.8 L (48.0-80.0) % Lymph % (Auto) 38.1 (16.0-40.0) % [place] % (Auto) 11.9 (0.0-15.0) % Eos % (Auto) 2.9 (0.0-7.0) % Baso % (Auto) 0.3 (0.0-1.5) % Neut # (Auto) 2.9 (1.4-5.7) K/uL Lymph # (Auto) 2.4 (0.6-2.4) K/uL [place] # (Auto) 0.8 (0.0-0.8) K/uL Eos # (Auto) 0.2 (0.0-0.7) K/uL Baso # (Auto) 0.0 (0.0-0.1) K/uL Nucleated RBC % 0.0 /100WBC Nucleated RBCs # 0 K/uL Sodium (136-145) mmol/L Potassium (3.5-5.1) mmol/L Chloride (98-107) mmol/L Carbon Dioxide (21.0-32.0) mmol/L BUN (7.0-18.0) mg/dL Creatinine (0.6-1.0) mg/dL Est Cr Clr Drug Dosing mL/min Estimated GFR (MDRD) ml/min Glucose (74-106) mg/dL POC Glucose 143 H 172 H (70-99) mg/dL Lactic Acid (0.4-2.0) mmol/L Calcium (8.5-10.1) mg/dL Total Bilirubin (0.2-1.0) mg/dL AST (15-37) IU/L ALT (14-63) IU/L Alkaline Phosphatase (46-116) U/L Troponin I (0.000-0.056) ng/mL B-Natriuretic Peptide (<100) PG/ML Total Protein (6.4-8.2) g/dL Albumin (3.4-5.0) g/dL Globulin (2.6-4.0) g/dL Albumin/Globulin Ratio (0.9-1.6) Lipase (73-393) U/L Urine Color Urine Appearance Urine pH (5.0-8.0) Ur Specific [place] (1.001-1.035) Urine Protein (NEGATIVE) mg/dL Urine Glucose (UA) (NEGATIVE) mg/dL Urine Ketones (NEGATIVE) mg/dL Urine Occult Blood (NEGATIVE) Urine Nitrite (NEGATIVE) Urine Bilirubin (NEGATIVE) Urine Urobilinogen (<2.0) EU/dL Ur Leukocyte Esterase (NEGATIVE) Urine RBC (0-2/HPF) Urine WBC (0-5/HPF) Ur Epithelial Cells (NONE-FEW) Urine Bacteria (NEGATIVE) SARS-CoV-2 RNA (VERO) (NEGATIVE) Blood Type Antibody Screen 12/24/20 12/24/20 Range/Units 06:15 06:53 WBC (4.0-11.0) K/uL RBC (4.30-5.90) M/uL Hgb (12.0-16.0) g/dL Hct (36.0-46.0) % MCV (80.0-98.0) fL MCH (27.0-32.0) pg MCHC (31.0-37.0) g/dL RDW Std Deviation (28.0-62.0) fl RDW Coeff of Aranza (11.0-15.0) % Plt Count (150-400) K/uL MPV (7.40-12.00) fL Neut % (Auto) (48.0-80.0) % Lymph % (Auto) (16.0-40.0) % [place] % (Auto) (0.0-15.0) % Eos % (Auto) (0.0-7.0) % Baso % (Auto) (0.0-1.5) % Neut # (Auto) (1.4-5.7) K/uL Lymph # (Auto) (0.6-2.4) K/uL [place] # (Auto) (0.0-0.8) K/uL Eos # (Auto) (0.0-0.7) K/uL Baso # (Auto) (0.0-0.1) K/uL Nucleated RBC % /100WBC Nucleated RBCs # K/uL Sodium 138 (136-145) mmol/L Potassium 3.9 (3.5-5.1) mmol/L Chloride 106 (98-107) mmol/L Carbon Dioxide 29.2 (21.0-32.0) mmol/L BUN 16 (7.0-18.0) mg/dL Creatinine 1.2 H (0.6-1.0) mg/dL Est Cr Clr Drug Dosing 43.63 mL/min Estimated GFR (MDRD) 44.7 ml/min Glucose 103 (74-106) mg/dL POC Glucose 117 H (70-99) mg/dL Lactic Acid (0.4-2.0) mmol/L Calcium 8.1 L (8.5-10.1) mg/dL Total Bilirubin (0.2-1.0) mg/dL AST (15-37) IU/L ALT (14-63) IU/L Alkaline Phosphatase (46-116) U/L Troponin I (0.000-0.056) ng/mL B-Natriuretic Peptide (<100) PG/ML Total Protein (6.4-8.2) g/dL Albumin (3.4-5.0) g/dL Globulin (2.6-4.0) g/dL Albumin/Globulin Ratio (0.9-1.6) Lipase (73-393) U/L Urine Color Urine Appearance Urine pH (5.0-8.0) Ur Specific [place] (1.001-1.035) Urine Protein (NEGATIVE) mg/dL Urine Glucose (UA) (NEGATIVE) mg/dL Urine Ketones (NEGATIVE) mg/dL Urine Occult Blood (NEGATIVE) Urine Nitrite (NEGATIVE) Urine Bilirubin (NEGATIVE) Urine Urobilinogen (<2.0) EU/dL Ur Leukocyte Esterase (NEGATIVE) Urine RBC (0-2/HPF) Urine WBC (0-5/HPF) Ur Epithelial Cells (NONE-FEW) Urine Bacteria (NEGATIVE) SARS-CoV-2 RNA (VERO) (NEGATIVE) Blood Type Antibody Screen Med Orders - Current: Current Medications Acetaminophen (Acetaminophen 325 Mg Tab) 650 mg PO Q6H PRN PRN Reason: Pain Last Admin: 12/24/20 03:04 Dose: 650 mg Documented by: Amitriptyline HCl (Amitriptyline 10 Mg Tab) 20 mg PO BEDTIME [facility] Last Admin: 12/23/20 21:18 Dose: 20 mg Documented by: Atorvastatin Calcium (Atorvastatin 40 Mg Tab) 80 mg PO BEDTIME [facility] Last Admin: 12/23/20 21:11 Dose: 80 mg Documented by: Clopidogrel Bisulfate (Clopidogrel 75 Mg Tab) 75 mg PO DAILY [facility] Last Admin: 12/24/20 08:27 Dose: 75 mg Documented by: Dextrose/Water (50% Dextrose In Water 50 Ml Syringe) 50 ml IVPUSH ASDIRECTED PRN PRN Reason: Hypoglycemia Dextrose/Water (50% Dextrose In Water 50 Ml Syringe) 50 ml IVPUSH ASDIRECTED PRN PRN Reason: Hypoglycemia Duloxetine HCl (Duloxetine 60 Mg Cap) 60 mg PO DAILY [facility] Last Admin: 12/24/20 08:27 Dose: 60 mg Documented by: Glucagon (Glucagon,Human Recombinant 1 Mg Vial) 1 mg IM ASDIRECTED PRN PRN Reason: Hypoglycemia Ceftriaxone Sodium/Dextrose 1 (gm/ Premix) 50 mls @ 100 mls/hr IV Q24H [facility] Pantoprazole Sodium 40 mg/ (Sodium Chloride) 10 mls @ 300 mls/hr IV Q24H [facility] Last Admin: 12/24/20 10:15 Dose: 300 mls/hr Documented by: Insulin Aspart (Insulin Aspart 100 Units/Ml 3 Ml Pen) 0 unit SUBCUT TIDAC [facility]; Protocol Last Admin: 12/24/20 07:16 Dose: Not Given Documented by: Insulin Glargine (Insulin Glargine,Human Rec. Analog 100 Units/Ml 3 Ml Pen) 40 units SUBCUT BEDTIME [facility] Last Admin: 12/23/20 21:20 Dose: 40 units Documented by: Levothyroxine Sodium (Levothyroxine 50 Mcg Tab) 50 mcg PO ACBREAKFAST [facility] Last Admin: 12/24/20 07:00 Dose: 50 mcg Documented by: Losartan Potassium (Losartan 50 Mg Tab) 12.5 mg PO BEDTIME [facility] Last Admin: 12/23/20 21:11 Dose: 12.5 mg Documented by: Nitroglycerin (Nitroglycerin 0.4 Mg Tab.Sl) 0.4 mg SL ASDIRECTED PRN PRN Reason: Chest Pain Oxycodone HCl (Oxycodone 5 Mg Tab) 10 mg PO Q6H PRN PRN Reason: Pain Last Admin: 12/23/20 21:36 Dose: 5 mg Documented by: Polyethylene Glycol (Polyethylene Glycol 3350 Powder 17 Gm Packet) 17 gm PO BID [facility] Last Admin: 12/24/20 10:13 Dose: 17 gm Documented by: Sodium Chloride (Sodium Chloride 0.9% 10 Ml Syringe) 10 ml FLUSH ASDIRECTED PRN PRN Reason: Keep Vein Open Last Admin: 12/23/20 11:58 Dose: 10 ml Documented by: Sodium Chloride (Sodium Chloride 0.9% 2.5 Ml Syringe) 2.5 ml FLUSH ASDIRECTED PRN PRN Reason: Keep Vein Open Last Admin: 12/23/20 11:58 Dose: 2.5 ml Documented by: Discontinued Medications Sodium Chloride (Normal Saline) 1,000 mls @ 999 mls/hr IV BOLUS ONE Stop: 12/23/20 12:09 Last Admin: 12/23/20 11:57 Dose: 999 mls/hr Documented by: Pantoprazole Sodium 80 mg/ (Sodium Chloride) 20 mls @ 420 mls/hr IVPUSH ONETIME ONE Stop: 12/23/20 11:15 Last Admin: 12/23/20 11:58 Dose: 420 mls/hr Documented by: Ceftriaxone Sodium/Dextrose 1 (gm/ Premix) 50 mls @ 100 mls/hr IV ONETIME ONE Stop: 12/23/20 13:54 Last Admin: 12/23/20 13:53 Dose: 100 mls/hr Documented by: Ceftriaxone Sodium 1 gm/ (Sodium Chloride) 50 mls @ 100 mls/hr IV Q24H [facility] Sodium Chloride (Normal Saline) 1,000 mls @ 125 mls/hr IV ASDIRECTED [facility] Sodium Chloride (Normal Saline) 1,000 mls @ 75 mls/hr IV ASDIRECTED [facility] Stop: 12/24/20 05:49 Last Admin: 12/23/20 16:30 Dose: 75 mls/hr Documented by: Iopamidol (Iopamidol 755 Mg/Ml 500 Ml Multipack Bottle) 100 ml IVPUSH ONETIME STA Stop: 12/23/20 17:17 Last Admin: 12/23/20 17:17 Dose: 100 ml Documented by: Ondansetron HCl (Ondansetron 4 Mg/2 Ml Sdv) 4 mg IVPUSH ONETIME ONE Stop: 12/23/20 11:12 Last Admin: 12/23/20 11:58 Dose: 4 mg Documented by: Oxycodone/Acetaminophen (Acetaminophen/Oxycodone 325-10 Mg Tab) 1 tab PO ONET ALEX ONE Stop: 12/23/20 13:49 Last Admin: 12/23/20 14:05 Dose: 1 tab Documented by: Polyethylene Glycol (Polyethylene Glycol 3350 Powder 17 Gm Packet) 17 gm PO BEDTIME [facility] Last Admin: 12/23/20 21:18 Dose: 17 gm Documented by: Tramadol HCl (Tramadol 50 Mg Tab) 50 mg PO DAILY [facility] - Exam General: Alert, Oriented Lungs: Clear to Auscultation, Normal Respiratory Effort Cardiovascular: Regular Rate, Regular Rhythm GI/Abdominal Exam: Soft, Non-Tender Extremities: No Pedal Edema Psy/Mental Status: Alert - Patient Data Lab Results Last 24 hrs: Laboratory Results - last 24 hr 12/23/20 12/23/20 12/23/20 Range/Units 11:20 11:20 11:20 WBC (4.0-11.0) K/uL RBC (4.30-5.90) M/uL Hgb (12.0-16.0) g/dL Hct (36.0-46.0) % MCV (80.0-98.0) fL MCH (27.0-32.0) pg MCHC (31.0-37.0) g/dL RDW Std Deviation (28.0-62.0) fl RDW Coeff of Aranza (11.0-15.0) % Plt Count (150-400) K/uL MPV (7.40-12.00) fL Neut % (Auto) (48.0-80.0) % Lymph % (Auto) (16.0-40.0) % [place] % (Auto) (0.0-15.0) % Eos % (Auto) (0.0-7.0) % Baso % (Auto) (0.0-1.5) % Neut # (Auto) (1.4-5.7) K/uL Lymph # (Auto) (0.6-2.4) K/uL [place] # (Auto) (0.0-0.8) K/uL Eos # (Auto) (0.0-0.7) K/uL Baso # (Auto) (0.0-0.1) K/uL Nucleated RBC % /100WBC Nucleated RBCs # K/uL Sodium 136 (136-145) mmol/L Potassium 4.1 (3.5-5.1) mmol/L Chloride 102 (98-107) mmol/L Carbon Dioxide 26.4 (21.0-32.0) mmol/L BUN 20 H (7.0-18.0) mg/dL Creatinine 1.4 H (0.6-1.0) mg/dL Est Cr Clr Drug Dosing 37.40 mL/min Estimated GFR (MDRD) 37.4 ml/min Glucose 198 H (74-106) mg/dL POC Glucose (70-99) mg/dL Lactic Acid 1.1 (0.4-2.0) mmol/L Calcium 8.5 (8.5-10.1) mg/dL Total Bilirubin 1.5 H (0.2-1.0) mg/dL AST 35 (15-37) IU/L ALT 29 (14-63) IU/L Alkaline Phosphatase 97 (46-116) U/L Troponin I < 0.050 (0.000-0.056) ng/mL B-Natriuretic Peptide 87 (<100) PG/ML Total Protein 5.5 L (6.4-8.2) g/dL Albumin 2.5 L (3.4-5.0) g/dL Globulin 3.0 (2.6-4.0) g/dL Albumin/Globulin Ratio 0.8 L (0.9-1.6) Lipase 20 L (73-393) U/L Urine Color Urine Appearance Urine pH (5.0-8.0) Ur Specific [place] (1.001-1.035) Urine Protein (NEGATIVE) mg/dL Urine Glucose (UA) (NEGATIVE) mg/dL Urine Ketones (NEGATIVE) mg/dL Urine Occult Blood (NEGATIVE) Urine Nitrite (NEGATIVE) Urine Bilirubin (NEGATIVE) Urine Urobilinogen (<2.0) EU/dL Ur Leukocyte Esterase (NEGATIVE) Urine RBC (0-2/HPF) Urine WBC (0-5/HPF) Ur Epithelial Cells (NONE-FEW) Urine Bacteria (NEGATIVE) SARS-CoV-2 RNA (VERO) (NEGATIVE) Blood Type Antibody Screen 12/23/20 12/23/20 12/23/20 Range/Units 11:56 12:32 13:00 WBC (4.0-11.0) K/uL RBC (4.30-5.90) M/uL Hgb (12.0-16.0) g/dL Hct (36.0-46.0) % MCV (80.0-98.0) fL MCH (27.0-32.0) pg MCHC (31.0-37.0) g/dL RDW Std Deviation (28.0-62.0) fl RDW Coeff of Aranza (11.0-15.0) % Plt Count (150-400) K/uL MPV (7.40-12.00) fL Neut % (Auto) (48.0-80.0) % Lymph % (Auto) (16.0-40.0) % [place] % (Auto) (0.0-15.0) % Eos % (Auto) (0.0-7.0) % Baso % (Auto) (0.0-1.5) % Neut # (Auto) (1.4-5.7) K/uL Lymph # (Auto) (0.6-2.4) K/uL [place] # (Auto) (0.0-0.8) K/uL Eos # (Auto) (0.0-0.7) K/uL Baso # (Auto) (0.0-0.1) K/uL Nucleated RBC % /100WBC Nucleated RBCs # K/uL Sodium (136-145) mmol/L Potassium (3.5-5.1) mmol/L Chloride (98-107) mmol/L Carbon Dioxide (21.0-32.0) mmol/L BUN (7.0-18.0) mg/dL Creatinine (0.6-1.0) mg/dL Est Cr Clr Drug Dosing mL/min Estimated GFR (MDRD) ml/min Glucose (74-106) mg/dL POC Glucose (70-99) mg/dL Lactic Acid (0.4-2.0) mmol/L Calcium (8.5-10.1) mg/dL Total Bilirubin (0.2-1.0) mg/dL AST (15-37) IU/L ALT (14-63) IU/L Alkaline Phosphatase (46-116) U/L Troponin I (0.000-0.056) ng/mL B-Natriuretic Peptide (<100) PG/ML Total Protein (6.4-8.2) g/dL Albumin (3.4-5.0) g/dL Globulin (2.6-4.0) g/dL Albumin/Globulin Ratio (0.9-1.6) Lipase (73-393) U/L Urine Color YELLOW Urine Appearance CLOUDY Urine pH 5.5 (5.0-8.0) Ur Specific [place] 1.015 (1.001-1.035) Urine Protein NEGATIVE (NEGATIVE) mg/dL Urine Glucose (UA) 100 H (NEGATIVE) mg/dL Urine Ketones NEGATIVE (NEGATIVE) mg/dL Urine Occult Blood MODERATE H (NEGATIVE) Urine Nitrite NEGATIVE (NEGATIVE) Urine Bilirubin NEGATIVE (NEGATIVE) Urine Urobilinogen 0.2 (<2.0) EU/dL Ur Leukocyte Esterase MODERATE H (NEGATIVE) Urine RBC 3-5 (0-2/HPF) Urine WBC TO NUMEROUS TO COUNT H (0-5/HPF) Ur Epithelial Cells RARE (NONE-FEW) Urine Bacteria 3+ H (NEGATIVE) SARS-CoV-2 RNA (VERO) NEGATIVE (NEGATIVE) Blood Type O POSITIVE Antibody Screen NEGATIVE 12/23/20 12/23/20 12/24/20 Range/Units 17:03 21:16 06:15 WBC 6.28 (4.0-11.0) K/uL RBC 3.87 L (4.30-5.90) M/uL Hgb 11.6 L (12.0-16.0) g/dL Hct 34.1 L (36.0-46.0) % MCV 88.1 (80.0-98.0) fL MCH 30.0 (27.0-32.0) pg MCHC 34.0 (31.0-37.0) g/dL RDW Std Deviation 46.2 (28.0-62.0) fl RDW Coeff of Aranza 14 (11.0-15.0) % Plt Count 160 (150-400) K/uL MPV 10.10 (7.40-12.00) fL Neut % (Auto) 46.8 L (48.0-80.0) % Lymph % (Auto) 38.1 (16.0-40.0) % [place] % (Auto) 11.9 (0.0-15.0) % Eos % (Auto) 2.9 (0.0-7.0) % Baso % (Auto) 0.3 (0.0-1.5) % Neut # (Auto) 2.9 (1.4-5.7) K/uL Lymph # (Auto) 2.4 (0.6-2.4) K/uL [place] # (Auto) 0.8 (0.0-0.8) K/uL Eos # (Auto) 0.2 (0.0-0.7) K/uL Baso # (Auto) 0.0 (0.0-0.1) K/uL Nucleated RBC % 0.0 /100WBC Nucleated RBCs # 0 K/uL Sodium (136-145) mmol/L Potassium (3.5-5.1) mmol/L Chloride (98-107) mmol/L Carbon Dioxide (21.0-32.0) mmol/L BUN (7.0-18.0) mg/dL Creatinine (0.6-1.0) mg/dL Est Cr Clr Drug Dosing mL/min Estimated GFR (MDRD) ml/min Glucose (74-106) mg/dL POC Glucose 143 H 172 H (70-99) mg/dL Lactic Acid (0.4-2.0) mmol/L Calcium (8.5-10.1) mg/dL Total Bilirubin (0.2-1.0) mg/dL AST (15-37) IU/L ALT (14-63) IU/L Alkaline Phosphatase (46-116) U/L Troponin I (0.000-0.056) ng/mL B-Natriuretic Peptide (<100) PG/ML Total Protein (6.4-8.2) g/dL Albumin (3.4-5.0) g/dL Globulin (2.6-4.0) g/dL Albumin/Globulin Ratio (0.9-1.6) Lipase (73-393) U/L Urine Color Urine Appearance Urine pH (5.0-8.0) Ur Specific [place] (1.001-1.035) Urine Protein (NEGATIVE) mg/dL Urine Glucose (UA) (NEGATIVE) mg/dL Urine Ketones (NEGATIVE) mg/dL Urine Occult Blood (NEGATIVE) Urine Nitrite (NEGATIVE) Urine Bilirubin (NEGATIVE) Urine Urobilinogen (<2.0) EU/dL Ur Leukocyte Esterase (NEGATIVE) Urine RBC (0-2/HPF) Urine WBC (0-5/HPF) Ur Epithelial Cells (NONE-FEW) Urine Bacteria (NEGATIVE) SARS-CoV-2 RNA (VERO) (NEGATIVE) Blood Type Antibody Screen 12/24/20 12/24/20 Range/Units 06:15 06:53 WBC (4.0-11.0) K/uL RBC (4.30-5.90) M/uL Hgb (12.0-16.0) g/dL Hct (36.0-46.0) % MCV (80.0-98.0) fL MCH (27.0-32.0) pg MCHC (31.0-37.0) g/dL RDW Std Deviation (28.0-62.0) fl RDW Coeff of [place] (11.0-15.0) % Plt Count (150-400) K/uL MPV (7.40-12.00) fL Neut % (Auto) (48.0-80.0) % Lymph % (Auto) (16.0-40.0) % [place] % (Auto) (0.0-15.0) % Eos % (Auto) (0.0-7.0) % Baso % (Auto) (0.0-1.5) % Neut # (Auto) (1.4-5.7) K/uL Lymph # (Auto) (0.6-2.4) K/uL [place] # (Auto) (0.0-0.8) K/uL Eos # (Auto) (0.0-0.7) K/uL Baso # (Auto) (0.0-0.1) K/uL Nucleated RBC % /100WBC Nucleated RBCs # K/uL Sodium 138 (136-145) mmol/L Potassium 3.9 (3.5-5.1) mmol/L Chloride 106 (98-107) mmol/L Carbon Dioxide 29.2 (21.0-32.0) mmol/L BUN 16 (7.0-18.0) mg/dL Creatinine 1.2 H (0.6-1.0) mg/dL Est Cr Clr Drug Dosing 43.63 mL/min Estimated GFR (MDRD) 44.7 ml/min Glucose 103 (74-106) mg/dL POC Glucose 117 H (70-99) mg/dL Lactic Acid (0.4-2.0) mmol/L Calcium 8.1 L (8.5-10.1) mg/dL Total Bilirubin (0.2-1.0) mg/dL AST (15-37) IU/L ALT (14-63) IU/L Alkaline Phosphatase (46-116) U/L Troponin I (0.000-0.056) ng/mL B-Natriuretic Peptide (<100) PG/ML Total Protein (6.4-8.2) g/dL Albumin (3.4-5.0) g/dL Globulin (2.6-4.0) g/dL Albumin/Globulin Ratio (0.9-1.6) Lipase (73-393) U/L Urine Color Urine Appearance Urine pH (5.0-8.0) Ur Specific [place] (1.001-1.035) Urine Protein (NEGATIVE) mg/dL Urine Glucose (UA) (NEGATIVE) mg/dL Urine Ketones (NEGATIVE) mg/dL Urine Occult Blood (NEGATIVE) Urine Nitrite (NEGATIVE) Urine Bilirubin (NEGATIVE) Urine Urobilinogen (<2.0) EU/dL Ur Leukocyte Esterase (NEGATIVE) Urine RBC (0-2/HPF) Urine WBC (0-5/HPF) Ur Epithelial Cells (NONE-FEW) Urine Bacteria (NEGATIVE) SARS-CoV-2 RNA (VERO) (NEGATIVE) Blood Type Antibody Screen Result Diagrams: 12/24/20 06:15 12/24/20 06:15 Sepsis Event Note - Evaluation Sepsis Screening Result: No Definite Risk - Focused Exam Vital Signs: Vital Signs Temp Pulse Resp BP Pulse Ox 12/24/20 08:06 97.2 F 80 18 107/58 L 91 L 12/24/20 03:00 98.5 F 93 17 115/65 92 L - Problem List & Annotations (1) Esophagitis SNOMED Code(s): 20959174 Code(s): K20.90 - ESOPHAGITIS, UNSPECIFIED WITHOUT BLEEDING Status: Acute Current Visit: Yes (2) UTI (urinary tract infection) SNOMED Code(s): 41853484 Code(s): N39.0 - URINARY TRACT INFECTION, SITE NOT SPECIFIED Status: Acute Priority: High Current Visit: Yes Qualifiers: Urinary tract infection type: site unspecified Hematuria presence: without hematuria Qualified Code(s): N39.0 - Urinary tract infection, site not specified (3) DM type 2 (diabetes mellitus, type 2) SNOMED Code(s): 61321850 Code(s): E11.9 - TYPE 2 DIABETES MELLITUS WITHOUT COMPLICATIONS Status: Acute Current Visit: Yes Qualifiers: Diabetes mellitus terminal clerk insulin use: with terminal clerk use Diabetes mellitus complication status: with circulatory complication Diabetes mellitus complication detail: with other circulatory complications Qualified Code(s): E11.59 - Type 2 diabetes mellitus with other circulatory complications; Z79.4 - correction (current) use of insulin (4) Fall SNOMED Code(s): 3857684, 952463095 Code(s): W19.XXXA - UNSPECIFIED FALL, INITIAL ENCOUNTER Status: Acute Current Visit: Yes Qualifiers: Encounter type: initial encounter Qualified Code(s): W19.XXXA - Unspecified fall, initial encounter (5) Headache SNOMED Code(s): 70844622 Code(s): R51 - HEADACHE * DO NOT USE * Status: Acute Current Visit: Yes Qualifiers: Headache type: unspecified Headache chronicity pattern: unspecified pattern Intractability: not intractable Qualified Code(s): R51.9 - Headache, unspecified (6) History of UTI SNOMED Code(s): 5610005272702, 4074264129021 Code(s): Z87.440 - PERSONAL HISTORY OF URINARY (TRACT) INFECTIONS Status: Acute Current Visit: Yes (7) CAD (coronary artery disease) SNOMED Code(s): 94992789 Code(s): I25.10 - ATHSCL HEART DISEASE OF [place] CORONARY ARTERY W/O ANG PCTRS Status: Chronic Priority: Medium Current Visit: Yes Qualifiers: Coronary Disease-Associated Artery/Lesion type: unspecified vessel or lesion type [place] vs. transplanted heart: [place] heart Associated angina: without angina Qualified Code(s): I25.10 - Atherosclerotic heart disease of [place] coronary artery without angina pectoris (8) HTN (hypertension) SNOMED Code(s): 76739151 Code(s): I10 - ESSENTIAL (PRIMARY) HYPERTENSION Status: Chronic Priority: Medium Current Visit: Yes Qualifiers: Hypertension type: unspecified Qualified Code(s): I10 - Essential (primary) hypertension - Problem List Review Problem List Initiated/Reviewed/Updated: Yes - My Orders Last 24 Hours: My Active Orders 12/23/20 Lunch [place] [employer] Diet [DIET] 12/23/20 15:30 Oxygen Therapy [RC] PRN VTE/DVT Education [RC] PER UNIT ROUTINE Vital Signs [RC] Q4H 12/23/20 15:39 Nitroglycerin [Nitrostat] 0.4 mg SL ASDIRECTED PRN 12/23/20 16:41 Code Status [Resuscitation Status] Routine 12/23/20 16:43 Intake and Output Strict [RC] Q12H Telemetry Monitoring [Cardiac Monitoring] [RC] Q8H 12/23/20 16:46 Dextrose 50% in Water 50 ml IVPUSH ASDIRECTED PRN Glucagon,Human Recombinant [GlucaGen] 1 mg IM ASDIRECTED PRN 12/23/20 16:48 Dextrose 50% in Water 50 ml IVPUSH ASDIRECTED PRN 12/23/20 17:00 Insulin Aspart [NovoLOG] See Protocol SUBCUT TIDAC oxyCODONE 10 mg PO Q6H PRN 12/23/20 17:30 Antiembolic Devices [RC] PER UNIT ROUTINE SCD [Sequential Compression Device] [OM.PC] Routine 12/23/20 19:07 Consult to Physical Therapy [PT Evaluation and Treatment] [CONS] Routine 12/23/20 21:00 Amitriptyline [Elavil] 20 mg PO BEDTIME Insulin Glarg,Human.Rec.Analog [LantUS Solostar] 40 units SUBCUT BEDTIME Losartan [Cozaar] 12.5 mg PO BEDTIME atorvaSTATin [Lipitor] 80 mg PO BEDTIME 12/24/20 07:30 Levothyroxine [Synthroid] 50 mcg PO ACBREAKFAST 12/24/20 09:00 Clopidogrel [Plavix] 75 mg PO DAILY DULoxetine [Cymbalta] 60 mg PO DAILY polyethylene glycoL 3350 [MiraLAX] 17 gm PO BID 12/24/20 11:00 Pantoprazole [ProTONIX IV] 40 mg Sodium Chloride 0.9% [Normal Saline] 10 ml IV Q24H 12/24/20 13:00 cefTRIAXone [Rocephin in Dextrose,Iso-Osm 1 GM/50 ML] 1 gm Premix Bag 1 bag IV Q24H - Plan Plan:: Cystitis/UTI-1 g Rocephin every 24 hours, urine culture pending Constipation-MiraLAX bedtime, will increase MiraLAX dosage and/or use enema if patient's constipation is not resolving. Esophagitis-per CT findings patient has significant gastritis which may be contributing to esophagitis. Patient started on 40 mg Protonix IV every 24 hours. Cardiac History- Includes OK, CHF, Stent placements, HTN. Telemetry, resume plavix, resume losartan. Hold lasix. Resume Midodrine as patient was having hypotension episodes throughout the afternoon. Hypothyroidism- Levothyroxine Diabetes- SSI, diabetic diet, Lantus
[2020-12-24] MEDS ORDERED: Sodium Chloride 0.9% 500 ML IV SCH (12:45)
[2020-12-24] MEDS: cefTRIAXone 1 GM in Premix Bag 1 BAG IV SCH (13:33)
[2020-12-24] MEDS: Midodrine 5 MG Tab PO SCH ×2 (13:34→22:22)
[2020-12-24] MEDS: Amitriptyline 10 MG Tab PO SCH (20:31)
[2020-12-24] MEDS: atorvaSTATin 40 MG Tab PO SCH (20:31)
[2020-12-24] MEDS: Insulin Glargine,Human Rec. Analog 100 Units/ML 3 ML Pen SUBCUT SCH (20:32)
[2020-12-25 06:36] LABS: CARBON DIOXIDE,CO2 30.6 mmol/L (21.0-32.0)
[2020-12-25] MEDS: Midodrine 5 MG Tab PO SCH ×4 (06:37→22:16)
[2020-12-25] MEDS: Levothyroxine 50 MCG Tab PO SCH (06:37)
[2020-12-25] MEDS: Insulin Aspart 100 Units/ML 3 ML Pen SUBCUT SCH ×3 (08:31→17:13)
[2020-12-25] MEDS: Polyethylene Glycol 3350 Powder 17 GM Packet PO SCH ×2 (08:42→20:45)
[2020-12-25] MEDS: DULoxetine 60 MG Cap PO SCH (08:42)
[2020-12-25] MEDS: Clopidogrel 75 MG Tab PO SCH (08:42)
[2020-12-25] MEDS: Acetaminophen 325 MG Tab PO PRN ×2 (08:42→23:06)
[2020-12-25] MEDS: Phenazopyridine 200 MG Tab PO SCH ×2 (12:09→20:45)
[2020-12-25] MEDS: Sucralfate Suspension 1 GM/10 ML Cup PO SCH ×3 (12:09→20:45)
--- NOTE | 2020-12-25 12:30 | PCM.PN ---
<Anant Morgan - Last Filed: 12/25/20 12:25> - General Info Date of Service: 12/25/20 Subjective Update: Patient states general feeling of weakness and fatigue. States suprapubic pain, abdominal pain. Denies fever, chills, nausea, vomiting, dysuria, hematuria. - Review of Systems General: Denies: Fever, Chills Pulmonary: Denies: Shortness of Breath, Cough Cardiovascular: Denies: Chest Pain Gastrointestinal: Denies: Abdominal Pain, Nausea, Vomiting Neurological: Denies: Dizziness, Headache - Patient Data Vitals - Most Recent: Last Vital Signs Temp 96.5 F L 12/25/20 11:44 Pulse 69 12/25/20 11:44 Resp 20 12/25/20 11:44 BP 103/59 L 12/25/20 11:44 Pulse Ox 91 L 12/25/20 11:44 Weight - Most Recent: 93.349 kg I&O - Last 24 Hours: Intake & Output 12/24/20 12/25/20 12/25/20 22:59 06:59 14:59 Intake Total 2070 550 Output Total 600 850 Balance 1470 -300 Lab Results Last 24 Hours: Laboratory Results - last 24 hr 12/24/20 12/24/20 12/25/20 Range/Units 16:37 20:24 05:43 WBC 5.30 (4.0-11.0) K/uL RBC 3.89 L (4.30-5.90) M/uL Hgb 11.7 L (12.0-16.0) g/dL Hct 34.1 L (36.0-46.0) % MCV 87.7 (80.0-98.0) fL MCH 30.1 (27.0-32.0) pg MCHC 34.3 (31.0-37.0) g/dL RDW Std Deviation 46.2 (28.0-62.0) fl RDW Coeff of Aranza 14 (11.0-15.0) % Plt Count 174 (150-400) K/uL MPV 9.90 (7.40-12.00) fL Neut % (Auto) 38.3 L (48.0-80.0) % Lymph % (Auto) 44.7 H (16.0-40.0) % Gordon % (Auto) 12.1 (0.0-15.0) % Eos % (Auto) 4.5 (0.0-7.0) % Baso % (Auto) 0.4 (0.0-1.5) % Neut # (Auto) 2.0 (1.4-5.7) K/uL Lymph # (Auto) 2.4 (0.6-2.4) K/uL Gordon # (Auto) 0.6 (0.0-0.8) K/uL Eos # (Auto) 0.2 (0.0-0.7) K/uL Baso # (Auto) 0.0 (0.0-0.1) K/uL Nucleated RBC % 0.0 /100WBC Nucleated RBCs # 0 K/uL Sodium (136-145) mmol/L Potassium (3.5-5.1) mmol/L Chloride (98-107) mmol/L Carbon Dioxide (21.0-32.0) mmol/L BUN (7.0-18.0) mg/dL Creatinine (0.6-1.0) mg/dL Est Cr Clr Drug Dosing mL/min Estimated GFR (MDRD) ml/min Glucose (74-106) mg/dL POC Glucose 182 H 173 H (70-99) mg/dL Calcium (8.5-10.1) mg/dL Magnesium (1.8-2.4) mg/dL 12/25/20 12/25/20 12/25/20 Range/Units 05:43 06:34 11:34 WBC (4.0-11.0) K/uL RBC (4.30-5.90) M/uL Hgb (12.0-16.0) g/dL Hct (36.0-46.0) % MCV (80.0-98.0) fL MCH (27.0-32.0) pg MCHC (31.0-37.0) g/dL RDW Std Deviation (28.0-62.0) fl RDW Coeff of Aranza (11.0-15.0) % Plt Count (150-400) K/uL MPV (7.40-12.00) fL Neut % (Auto) (48.0-80.0) % Lymph % (Auto) (16.0-40.0) % Gordon % (Auto) (0.0-15.0) % Eos % (Auto) (0.0-7.0) % Baso % (Auto) (0.0-1.5) % Neut # (Auto) (1.4-5.7) K/uL Lymph # (Auto) (0.6-2.4) K/uL Gordon # (Auto) (0.0-0.8) K/uL Eos # (Auto) (0.0-0.7) K/uL Baso # (Auto) (0.0-0.1) K/uL Nucleated RBC % /100WBC Nucleated RBCs # K/uL Sodium 142 (136-145) mmol/L Potassium 4.0 (3.5-5.1) mmol/L Chloride 106 (98-107) mmol/L Carbon Dioxide 30.6 (21.0-32.0) mmol/L BUN 18 (7.0-18.0) mg/dL Creatinine 1.1 H (0.6-1.0) mg/dL Est Cr Clr Drug Dosing 47.60 mL/min Estimated GFR (MDRD) 49.4 ml/min Glucose 66 L (74-106) mg/dL POC Glucose 63 L 192 H (70-99) mg/dL Calcium 8.1 L (8.5-10.1) mg/dL Magnesium 1.9 (1.8-2.4) mg/dL Wesley Results Last 24 Hours: Microbiology 12/23/20 13:00 Urine Culture - Preliminary Urine Gram Negative Rods Med Orders - Current: Current Medications Acetaminophen (Acetaminophen 325 Mg Tab) 650 mg PO Q6H PRN PRN Reason: Pain Last Admin: 12/25/20 08:42 Dose: 650 mg Documented by: Amitriptyline HCl (Amitriptyline 10 Mg Tab) 20 mg PO BEDTIME [facility] Last Admin: 12/24/20 20:31 Dose: 20 mg Documented by: Atorvastatin Calcium (Atorvastatin 40 Mg Tab) 80 mg PO BEDTIME [facility] Last Admin: 12/24/20 20:31 Dose: 80 mg Documented by: Clopidogrel Bisulfate (Clopidogrel 75 Mg Tab) 75 mg PO DAILY [facility] Last Admin: 12/25/20 08:42 Dose: 75 mg Documented by: Dextrose/Water (50% Dextrose In Water 50 Ml Syringe) 50 ml IVPUSH ASDIRECTED PRN PRN Reason: Hypoglycemia Dextrose/Water (50% Dextrose In Water 50 Ml Syringe) 50 ml IVPUSH ASDIRECTED PRN PRN Reason: Hypoglycemia Duloxetine HCl (Duloxetine 60 Mg Cap) 60 mg PO DAILY [facility] Last Admin: 12/25/20 08:42 Dose: 60 mg Documented by: Glucagon (Glucagon,Human Recombinant 1 Mg Vial) 1 mg IM ASDIRECTED PRN PRN Reason: Hypoglycemia Ceftriaxone Sodium/Dextrose 1 (gm/ Premix) 50 mls @ 100 mls/hr IV Q24H [facility] Last Admin: 12/24/20 13:33 Dose: 100 mls/hr Documented by: Insulin Aspart (Insulin Aspart 100 Units/Ml 3 Ml Pen) 0 unit SUBCUT TIDAC [facility]; Protocol Last Admin: 12/25/20 08:31 Dose: Not Given Documented by: Insulin Glargine (Insulin Glargine,Human Rec. Analog 100 Units/Ml 3 Ml Pen) 40 units SUBCUT BEDTIME [facility] Last Admin: 12/24/20 20:32 Dose: 40 units Documented by: Levothyroxine Sodium (Levothyroxine 50 Mcg Tab) 50 mcg PO ACBREAKFAST [facility] Last Admin: 12/25/20 06:37 Dose: 50 mcg Documented by: Midodrine (Midodrine 5 Mg Tab) 5 mg PO TID [facility] Last Admin: 12/25/20 06:37 Dose: 5 mg Documented by: Nitroglycerin (Nitroglycerin 0.4 Mg Tab.Sl) 0.4 mg SL ASDIRECTED PRN PRN Reason: Chest Pain Oxycodone HCl (Oxycodone 5 Mg Tab) 10 mg PO Q6H PRN PRN Reason: Pain Last Admin: 12/23/20 21:36 Dose: 5 mg Documented by: Pantoprazole Sodium (Pantoprazole 40 Mg Tab.Cr) 40 mg PO ACBREAKFAST [facility] Phenazopyridine HCl (Phenazopyridine 200 Mg Tab) 200 mg PO Q8H [facility] Last Admin: 12/25/20 12:09 Dose: 200 mg Documented by: Polyethylene Glycol (Polyethylene Glycol 3350 Powder 17 Gm Packet) 17 gm PO BID [facility] Last Admin: 12/25/20 08:42 Dose: 17 gm Documented by: Sodium Chloride (Sodium Chloride 0.9% 10 Ml Syringe) 10 ml FLUSH ASDIRECTED PRN PRN Reason: Keep Vein Open Last Admin: 12/23/20 11:58 Dose: 10 ml Documented by: Sodium Chloride (Sodium Chloride 0.9% 2.5 Ml Syringe) 2.5 ml FLUSH ASDIRECTED PRN PRN Reason: Keep Vein Open Last Admin: 12/23/20 11:58 Dose: 2.5 ml Documented by: Sucralfate (Sucralfate Suspension 1 Gm/10 Ml Cup) 1 gm PO QIDACANDBED [facility] Last Admin: 12/25/20 12:09 Dose: 1 gm Documented by: Discontinued Medications Sodium Chloride (Normal Saline) 1,000 mls @ 999 mls/hr IV BOLUS ONE Stop: 12/23/20 12:09 Last Admin: 12/23/20 11:57 Dose: 999 mls/hr Documented by: Pantoprazole Sodium 80 mg/ (Sodium Chloride) 20 mls @ 420 mls/hr IVPUSH ONETIME ONE Stop: 12/23/20 11:15 Last Admin: 12/23/20 11:58 Dose: 420 mls/hr Documented by: Ceftriaxone Sodium/Dextrose 1 (gm/ Premix) 50 mls @ 100 mls/hr IV ONETIME ONE Stop: 12/23/20 13:54 Last Admin: 12/23/20 13:53 Dose: 100 mls/hr Documented by: Ceftriaxone Sodium 1 gm/ (Sodium Chloride) 50 mls @ 100 mls/hr IV Q24H [facility] Sodium Chloride (Normal Saline) 1,000 mls @ 125 mls/hr IV ASDIRECTED [facility] Pantoprazole Sodium 40 mg/ (Sodium Chloride) 10 mls @ 300 mls/hr IV Q24H [facility] Last Admin: 12/24/20 10:15 Dose: 300 mls/hr Documented by: Sodium Chloride (Normal Saline) 1,000 mls @ 75 mls/hr IV ASDIRECTED [facility] Stop: 12/24/20 05:49 Last Admin: 12/23/20 16:30 Dose: 75 mls/hr Documented by: Sodium Chloride (Normal Saline) 500 mls @ 999 mls/hr IV .BOLUS [facility] Last Admin: 12/24/20 13:05 Dose: 999 mls/hr Documented by: Iopamidol (Iopamidol 755 Mg/Ml 500 Ml Multipack Bottle) 100 ml IVPUSH ONETIME STA Stop: 12/23/20 17:17 Last Admin: 12/23/20 17:17 Dose: 100 ml Documented by: Losartan Potassium (Losartan 50 Mg Tab) 12.5 mg PO BEDTIME [facility] Last Admin: 12/23/20 21:11 Dose: 12.5 mg Documented by: Ondansetron HCl (Ondansetron 4 Mg/2 Ml Sdv) 4 mg IVPUSH ONETIME ONE Stop: 12/23/20 11:12 Last Admin: 12/23/20 11:58 Dose: 4 mg Documented by: Oxycodone/Acetaminophen (Acetaminophen/Oxycodone 325-10 Mg Tab) 1 tab PO ON ETIME ONE Stop: 12/23/20 13:49 Last Admin: 12/23/20 14:05 Dose: 1 tab Documented by: Polyethylene Glycol (Polyethylene Glycol 3350 Powder 17 Gm Packet) 17 gm PO BEDTIME [facility] Last Admin: 12/23/20 21:18 Dose: 17 gm Documented by: Tramadol HCl (Tramadol 50 Mg Tab) 50 mg PO DAILY [facility] - Exam General: Alert, Oriented Lungs: Clear to Auscultation, Normal Respiratory Effort Cardiovascular: Regular Rate GI/Abdominal Exam: Soft, No Distention, Tender (suprapubic region, left quad rant) Extremities: No Pedal Edema Psy/Mental Status: Alert - Patient Data Lab Results Last 24 hrs: Laboratory Results - last 24 hr 12/24/20 12/24/20 12/25/20 Range/Units 16:37 20:24 05:43 WBC 5.30 (4.0-11.0) K/uL RBC 3.89 L (4.30-5.90) M/uL Hgb 11.7 L (12.0-16.0) g/dL Hct 34.1 L (36.0-46.0) % MCV 87.7 (80.0-98.0) fL MCH 30.1 (27.0-32.0) pg MCHC 34.3 (31.0-37.0) g/dL RDW Std Deviation 46.2 (28.0-62.0) fl RDW Coeff of Aranza 14 (11.0-15.0) % Plt Count 174 (150-400) K/uL MPV 9.90 (7.40-12.00) fL Neut % (Auto) 38.3 L (48.0-80.0) % Lymph % (Auto) 44.7 H (16.0-40.0) % Gordon % (Auto) 12.1 (0.0-15.0) % Eos % (Auto) 4.5 (0.0-7.0) % Baso % (Auto) 0.4 (0.0-1.5) % Neut # (Auto) 2.0 (1.4-5.7) K/uL Lymph # (Auto) 2.4 (0.6-2.4) K/uL Gordon # (Auto) 0.6 (0.0-0.8) K/uL Eos # (Auto) 0.2 (0.0-0.7) K/uL Baso # (Auto) 0.0 (0.0-0.1) K/uL Nucleated RBC % 0.0 /100WBC Nucleated RBCs # 0 K/uL Sodium (136-145) mmol/L Potassium (3.5-5.1) mmol/L Chloride (98-107) mmol/L Carbon Dioxide (21.0-32.0) mmol/L BUN (7.0-18.0) mg/dL Creatinine (0.6-1.0) mg/dL Est Cr Clr Drug Dosing mL/min Estimated GFR (MDRD) ml/min Glucose (74-106) mg/dL POC Glucose 182 H 173 H (70-99) mg/dL Calcium (8.5-10.1) mg/dL Magnesium (1.8-2.4) mg/dL 12/25/20 12/25/20 12/25/20 Range/Units 05:43 06:34 11:34 WBC (4.0-11.0) K/uL RBC (4.30-5.90) M/uL Hgb (12.0-16.0) g/dL Hct (36.0-46.0) % MCV (80.0-98.0) fL MCH (27.0-32.0) pg MCHC (31.0-37.0) g/dL RDW Std Deviation (28.0-62.0) fl RDW Coeff of Aranza (11.0-15.0) % Plt Count (150-400) K/uL MPV (7.40-12.00) fL Neut % (Auto) (48.0-80.0) % Lymph % (Auto) (16.0-40.0) % Gordon % (Auto) (0.0-15.0) % Eos % (Auto) (0.0-7.0) % Baso % (Auto) (0.0-1.5) % Neut # (Auto) (1.4-5.7) K/uL Lymph # (Auto) (0.6-2.4) K/uL Gordon # (Auto) (0.0-0.8) K/uL Eos # (Auto) (0.0-0.7) K/uL Baso # (Auto) (0.0-0.1) K/uL Nucleated RBC % /100WBC Nucleated RBCs # K/uL Sodium 142 (136-145) mmol/L Potassium 4.0 (3.5-5.1) mmol/L Chloride 106 (98-107) mmol/L Carbon Dioxide 30.6 (21.0-32.0) mmol/L BUN 18 (7.0-18.0) mg/dL Creatinine 1.1 H (0.6-1.0) mg/dL Est Cr Clr Drug Dosing 47.60 mL/min Estimated GFR (MDRD) 49.4 ml/min Glucose 66 L (74-106) mg/dL POC Glucose 63 L 192 H (70-99) mg/dL Calcium 8.1 L (8.5-10.1) mg/dL Magnesium 1.9 (1.8-2.4) mg/dL Result Diagrams: 12/25/20 05:43 12/25/20 05:43 Wesley Results Last 24 hrs: Microbiology 12/23/20 13:00 Urine Culture - Preliminary Urine Gram Negative Rods Sepsis Event Note - Evaluation Sepsis Screening Result: No Definite Risk - Focused Exam Vital Signs: Vital Signs Temp Pulse Resp BP BP Pulse Ox 12/25/20 11:44 96.5 F L 69 20 103/59 L 91 L 12/25/20 09:30 97.5 F 68 16 109/70 94 L 12/25/20 04:13 97.7 F 67 16 117/62 92 L - Problem List & Annotations (1) Esophagitis SNOMED Code(s): 91160377 Code(s): K20.90 - ESOPHAGITIS, UNSPECIFIED WITHOUT BLEEDING Status: Acute Current Visit: Yes (2) UTI (urinary tract infection) SNOMED Code(s): 58738689 Code(s): N39.0 - URINARY TRACT INFECTION, SITE NOT SPECIFIED Status: Acute Priority: High Current Visit: Yes Qualifiers: Urinary tract infection type: site unspecified Hematuria presence: without hematuria Qualified Code(s): N39.0 - Urinary tract infection, site not specified (3) DM type 2 (diabetes mellitus, type 2) SNOMED Code(s): 46223437 Code(s): E11.9 - TYPE 2 DIABETES MELLITUS WITHOUT COMPLICATIONS Status: Acute Current Visit: Yes Qualifiers: Diabetes mellitus jail insulin use: with superintendent terminal use Diabetes mellitus complication status: with circulatory complication Diabetes mellitus complication detail: with other circulatory complications Qualified Code(s): E11.59 - Type 2 diabetes mellitus with other circulatory complications; Z79.4 - long term care phlebotomist (current) use of insulin (4) Fall SNOMED Code(s): 1155842, 095788522 Code(s): W19.XXXA - UNSPECIFIED FALL, INITIAL ENCOUNTER Status: Acute Current Visit: Yes Qualifiers: Encounter type: initial encounter Qualified Code(s): W19.XXXA - Unspecified fall, initial encounter (5) Headache SNOMED Code(s): 56322458 Code(s): R51 - HEADACHE * DO NOT USE * Status: Acute Current Visit: Yes Qualifiers: Headache type: unspecified Headache chronicity pattern: unspecified pattern Intractability: not intractable Qualified Code(s): R51.9 - Headache, unspecified (6) History of UTI SNOMED Code(s): 0984418829467, 5086079811182 Code(s): Z87.440 - PERSONAL HISTORY OF URINARY (TRACT) INFECTIONS Status: Acute Current Visit: Yes (7) CAD (coronary artery disease) SNOMED Code(s): 40249733 Code(s): I25.10 - ATHSCL HEART DISEASE OF [place] CORONARY ARTERY W/O ANG PCTRS Status: Chronic Priority: Medium Current Visit: Yes Qualifiers: Coronary Disease-Associated Artery/Lesion type: unspecified vessel or lesion type [place] vs. transplanted heart: [place] heart Associated angina: without angina Qualified Code(s): I25.10 - Atherosclerotic heart disease of [place] c oronary artery without angina pectoris (8) HTN (hypertension) SNOMED Code(s): 43518386 Code(s): I10 - ESSENTIAL (PRIMARY) HYPERTENSION Status: Chronic Priority: Medium Current Visit: Yes Qualifiers: Hypertension type: unspecified Qualified Code(s): I10 - Essential (primary) hypertension - Problem List Review Problem List Initiated/Reviewed/Updated: Yes - My Orders Last 24 Hours: My Active Orders 12/24/20 13:00 cefTRIAXone [Rocephin in Dextrose,Iso-Osm 1 GM/50 ML] 1 gm Premix Bag 1 bag IV Q24H 12/24/20 14:00 Midodrine 5 mg PO TID - Plan Plan:: Cystitis/UTI-1 g Rocephin every 24 hours, Began Pyridium. Constipation-MiraLAX BID, patient is reporting regular bowel movements Esophagitis/gastritis- Carafate, PO Protonix Cardiac History- Includes GA, CHF, Stent placements, HTN. Telemetry, resume plavix, stop losartan, hold lasix. Resume Midodrine as patient was having hypotension episodes throughout the afternoon. Hypothyroidism- Levothyroxine Diabetes- SSI, diabetic diet, Lantus <Altagracia Reyes - Last Filed: 12/26/20 14:44> - Patient Data Vitals - Most Recent: Last Vital Signs Temp 35.7 C L 12/26/20 12:00 Pulse 74 12/26/20 12:00 Resp 22 H 12/26/20 12:00 BP 113/61 12/26/20 12:00 Pulse Ox 95 12/26/20 12:00 I&O - Last 24 Hours: Intake & Output 12/25/20 12/26/20 12/26/20 22:59 06:59 14:59 Intake Total 1080 1100 Output Total 1150 950 Balance -70 150 Lab Results Last 24 Hours: Laboratory Results - last 24 hr 12/25/20 12/25/20 12/26/20 Range/Units 16:26 20:52 06:12 WBC 5.16 (4.0-11.0) K/uL RBC 4.01 L (4.30-5.90) M/uL Hgb 11.9 L (12.0-16.0) g/dL Hct 35.1 L (36.0-46.0) % MCV 87.5 (80.0-98.0) fL MCH 29.7 (27.0-32.0) pg MCHC 33.9 (31.0-37.0) g/dL RDW Std Deviation 45.6 (28.0-62.0) fl RDW Coeff of Aranza 14 (11.0-15.0) % Plt Count 207 (150-400) K/uL MPV 10.20 (7.40-12.00) fL Neut % (Auto) 32.3 L (48.0-80.0) % Lymph % (Auto) 51.2 H (16.0-40.0) % Gordon % (Auto) 11.2 (0.0-15.0) % Eos % (Auto) 4.7 (0.0-7.0) % Baso % (Auto) 0.6 (0.0-1.5) % Neut # (Auto) 1.7 (1.4-5.7) K/uL Lymph # (Auto) 2.6 H (0.6-2.4) K/uL Gordon # (Auto) 0.6 (0.0-0.8) K/uL Eos # (Auto) 0.2 (0.0-0.7) K/uL Baso # (Auto) 0.0 (0.0-0.1) K/uL Nucleated RBC % 0.0 /100WBC Nucleated RBCs # 0 K/uL Sodium (136-145) mmol/L Potassium (3.5-5.1) mmol/L Chloride (98-107) mmol/L Carbon Dioxide (21.0-32.0) mmol/L BUN (7.0-18.0) mg/dL Creatinine (0.6-1.0) mg/dL Est Cr Clr Drug Dosing mL/min Estimated GFR (MDRD) ml/min Glucose (74-106) mg/dL POC Glucose 174 H 176 H (70-99) mg/dL Calcium (8.5-10.1) mg/dL 12/26/20 12/26/20 12/26/20 Range/Units 06:12 06:14 11:23 WBC (4.0-11.0) K/uL RBC (4.30-5.90) M/uL Hgb (12.0-16.0) g/dL Hct (36.0-46.0) % MCV (80.0-98.0) fL MCH (27.0-32.0) pg MCHC (31.0-37.0) g/dL RDW Std Deviation (28.0-62.0) fl RDW Coeff of Aranza (11.0-15.0) % Plt Count (150-400) K/uL MPV (7.40-12.00) fL Neut % (Auto) (48.0-80.0) % Lymph % (Auto) (16.0-40.0) % Gordon % (Auto) (0.0-15.0) % Eos % (Auto) (0.0-7.0) % Baso % (Auto) (0.0-1.5) % Neut # (Auto) (1.4-5.7) K/uL Lymph # (Auto) (0.6-2.4) K/uL Gordon # (Auto) (0.0-0.8) K/uL Eos # (Auto) (0.0-0.7) K/uL Baso # (Auto) (0.0-0.1) K/uL Nucleated RBC % /100WBC Nucleated RBCs # K/uL Sodium 142 (136-145) mmol/L Potassium 3.9 (3.5-5.1) mmol/L Chloride 105 (98-107) mmol/L Carbon Dioxide 29.7 (21.0-32.0) mmol/L BUN 13 (7.0-18.0) mg/dL Creatinine 1.1 H (0.6-1.0) mg/dL Est Cr Clr Drug Dosing 47.60 mL/min Estimated GFR (MDRD) 49.4 ml/min Glucose 75 (74-106) mg/dL POC Glucose 74 185 H (70-99) mg/dL Calcium 8.1 L (8.5-10.1) mg/dL Med Orders - Current: Current Medications Acetaminophen (Acetaminophen 325 Mg Tab) 650 mg PO Q6H PRN PRN Reason: Pain Last Admin: 12/26/20 09:53 Dose: 650 mg Documented by: Amitriptyline HCl (Amitriptyline 10 Mg Tab) 20 mg PO BEDTIME [facility] Last Admin: 12/25/20 20:44 Dose: 20 mg Documented by: Atorvastatin Calcium (Atorvastatin 40 Mg Tab) 80 mg PO BEDTIME [facility] Last Admin: 12/25/20 20:44 Dose: 80 mg Documented by: Clopidogrel Bisulfate (Clopidogrel 75 Mg Tab) 75 mg PO DAILY [facility] Last Admin: 12/26/20 09:53 Dose: 75 mg Documented by: Dextrose/Water (50% Dextrose In Water 50 Ml Syringe) 50 ml IVPUSH ASDIRECTED PRN PRN Reason: Hypoglycemia Dextrose/Water (50% Dextrose In Water 50 Ml Syringe) 50 ml IVPUSH ASDIRECTED PRN PRN Reason: Hypoglycemia Duloxetine HCl (Duloxetine 60 Mg Cap) 60 mg PO DAILY [facility] Last Admin: 12/26/20 09:53 Dose: 60 mg Documented by: Glucagon (Glucagon,Human Recombinant 1 Mg Vial) 1 mg IM ASDIRECTED PRN PRN Reason: Hypoglycemia Ceftriaxone Sodium/Dextrose 1 (gm/ Premix) 50 mls @ 100 mls/hr IV Q24H [facility] Last Admin: 12/26/20 13:53 Dose: 100 mls/hr Documented by: Insulin Aspart (Insulin Aspart 100 Units/Ml 3 Ml Pen) 0 unit SUBCUT TIDAC [facility]; Protocol Last Admin: 12/26/20 13:12 Dose: 1 unit Documented by: Insulin Glargine (Insulin Glargine,Human Rec. Analog 100 Units/Ml 3 Ml Pen) 40 units SUBCUT BEDTIME [facility] Last Admin: 12/25/20 20:53 Dose: 40 units Documented by: Levothyroxine Sodium (Levothyroxine 50 Mcg Tab) 50 mcg PO ACBREAKFAST [facility] Last Admin: 12/26/20 06:33 Dose: 50 mcg Documented by: Midodrine (Midodrine 5 Mg Tab) 5 mg PO TID [facility] Last Admin: 12/26/20 13:53 Dose: 5 mg Documented by: Nitroglycerin (Nitroglycerin 0.4 Mg Tab.Sl) 0.4 mg SL ASDIRECTED PRN PRN Reason: Chest Pain Oxycodone HCl (Oxycodone 5 Mg Tab) 10 mg PO Q6H PRN PRN Reason: Pain Last Admin: 12/23/20 21:36 Dose: 5 mg Documented by: Pantoprazole Sodium (Pantoprazole 40 Mg Tab.Cr) 40 mg PO ACBREAKFAST [facility] Last Admin: 12/26/20 06:33 Dose: 40 mg Documented by: Phenazopyridine HCl (Phenazopyridine 200 Mg Tab) 200 mg PO Q8H [facility] Last Admin: 12/26/20 12:25 Dose: 200 mg Documented by: Polyethylene Glycol (Polyethylene Glycol 3350 Powder 17 Gm Packet) 17 gm PO BID [facility] Last Admin: 12/26/20 09:58 Dose: 17 gm Documented by: Sodium Chloride (Sodium Chloride 0.9% 10 Ml Syringe) 10 ml FLUSH ASDIRECTED PRN PRN Reason: Keep Vein Open Last Admin: 12/23/20 11:58 Dose: 10 ml Documented by: Sodium Chloride (Sodium Chloride 0.9% 2.5 Ml Syringe) 2.5 ml FLUSH ASDIRECTED PRN PRN Reason: Keep Vein Open Last Admin: 12/23/20 11:58 Dose: 2.5 ml Documented by: Sucralfate (Sucralfate Suspension 1 Gm/10 Ml Cup) 1 gm PO QIDACANDBED [facility] Last Admin: 12/26/20 12:25 Dose: 1 gm Documented by: Discontinued Medications Sodium Chloride (Normal Saline) 1,000 mls @ 999 mls/hr IV BOLUS ONE Stop: 12/23/20 12:09 Last Admin: 12/23/20 11:57 Dose: 999 mls/hr Documented by: Pantoprazole Sodium 80 mg/ (Sodium Chloride) 20 mls @ 420 mls/hr IVPUSH ONETIME ONE Stop: 12/23/20 11:15 Last Admin: 12/23/20 11:58 Dose: 420 mls/hr Documented by: Ceftriaxone Sodium/Dextrose 1 (gm/ Premix) 50 mls @ 100 mls/hr IV ONETIME ONE Stop: 12/23/20 13:54 Last Admin: 12/23/20 13:53 Dose: 100 mls/hr Documented by: Ceftriaxone Sodium 1 gm/ (Sodium Chloride) 50 mls @ 100 mls/hr IV Q24H [facility] Sodium Chloride (Normal Saline) 1,000 mls @ 125 mls/hr IV ASDIRECTED [facility] Pantoprazole Sodium 40 mg/ (Sodium Chloride) 10 mls @ 300 mls/hr IV Q24H [facility] Last Admin: 12/25/20 12:32 Dose: Not Given Documented by: Sodium Chloride (Normal Saline) 1,000 mls @ 75 mls/hr IV ASDIRECTED [facility] Stop: 12/24/20 05:49 Last Admin: 12/23/20 16:30 Dose: 75 mls/hr Documented by: Sodium Chloride (Normal Saline) 500 mls @ 999 mls/hr IV .BOLUS [facility] Last Admin: 12/24/20 13:05 Dose: 999 mls/hr Documented by: Iopamidol (Iopamidol 755 Mg/Ml 500 Ml Multipack Bottle) 100 ml IVPUSH ONETIME STA Stop: 12/23/20 17:17 Last Admin: 12/23/20 17:17 Dose: 100 ml Documented by: Losartan Potassium (Losartan 50 Mg Tab) 12.5 mg PO BEDTIME [facility] Last Admin: 12/23/20 21:11 Dose: 12.5 mg Documented by: Ondansetron HCl (Ondansetron 4 Mg/2 Ml Sdv) 4 mg IVPUSH ONETIME ONE Stop: 12/23/20 11:12 Last Admin: 12/23/20 11:58 Dose: 4 mg Documented by: Oxycodone/Acetaminophen (Acetaminophen/Oxycodone 325-10 Mg Tab) 1 tab PO ONETIME ONE Stop: 12/23/20 13:49 Last Admin: 12/23/20 14:05 Dose: 1 tab Documented by: Polyethylene Glycol (Polyethylene Glycol 3350 Powder 17 Gm Packet) 17 gm PO BEDTIME [facility] Last Admin: 12/23/20 21:18 Dose: 17 gm Documented by: Tramadol HCl (Tramadol 50 Mg Tab) 50 mg PO DAILY [facility] - Patient Data Lab Results Last 24 hrs: Laboratory Results - last 24 hr 12/25/20 12/25/20 12/26/20 Range/Units 16:26 20:52 06:12 WBC 5.16 (4.0-11.0) K/uL RBC 4.01 L (4.30-5.90) M/uL Hgb 11.9 L (12.0-16.0) g/dL Hct 35.1 L (36.0-46.0) % MCV 87.5 (80.0-98.0) fL MCH 29.7 (27.0-32.0) pg MCHC 33.9 (31.0-37.0) g/dL RDW Std Deviation 45.6 (28.0-62.0) fl RDW Coeff of Aranza 14 (11.0-15.0) % Plt Count 207 (150-400) K/uL MPV 10.20 (7.40-12.00) fL Neut % (Auto) 32.3 L (48.0-80.0) % Lymph % (Auto) 51.2 H (16.0-40.0) % Gordon % (Auto) 11.2 (0.0-15.0) % Eos % (Auto) 4.7 (0.0-7.0) % Baso % (Auto) 0.6 (0.0-1.5) % Neut # (Auto) 1.7 (1.4-5.7) K/uL Lymph # (Auto) 2.6 H (0.6-2.4) K/uL Gordon # (Auto) 0.6 (0.0-0.8) K/uL Eos # (Auto) 0.2 (0.0-0.7) K/uL Baso # (Auto) 0.0 (0.0-0.1) K/uL Nucleated RBC % 0.0 /100WBC Nucleated RBCs # 0 K/uL Sodium (136-145) mmol/L Potassium (3.5-5.1) mmol/L Chloride (98-107) mmol/L Carbon Dioxide (21.0-32.0) mmol/L BUN (7.0-18.0) mg/dL Creatinine (0.6-1.0) mg/dL Est Cr Clr Drug Dosing mL/min Estimated GFR (MDRD) ml/min Glucose (74-106) mg/dL POC Glucose 174 H 176 H (70-99) mg/dL Calcium (8.5-10.1) mg/dL 12/26/20 12/26/20 12/26/20 Range/Units 06:12 06:14 11:23 WBC (4.0-11.0) K/uL RBC (4.30-5.90) M/uL Hgb (12.0-16.0) g/dL Hct (36.0-46.0) % MCV (80.0-98.0) fL MCH (27.0-32.0) pg MCHC (31.0-37.0) g/dL RDW Std Deviation (28.0-62.0) fl RDW Coeff of Aranza (11.0-15.0) % Plt Count (150-400) K/uL MPV (7.40-12.00) fL Neut % (Auto) (48.0-80.0) % Lymph % (Auto) (16.0-40.0) % Gordon % (Auto) (0.0-15.0) % Eos % (Auto) (0.0-7.0) % Baso % (Auto) (0.0-1.5) % Neut # (Auto) (1.4-5.7) K/uL Lymph # (Auto) (0.6-2.4) K/uL Gordon # (Auto) (0.0-0.8) K/uL Eos # (Auto) (0.0-0.7) K/uL Baso # (Auto) (0.0-0.1) K/uL Nucleated RBC % /100WBC Nucleated RBCs # K/uL Sodium 142 (136-145) mmol/L Potassium 3.9 (3.5-5.1) mmol/L Chloride 105 (98-107) mmol/L Carbon Dioxide 29.7 (21.0-32.0) mmol/L BUN 13 (7.0-18.0) mg/dL Creatinine 1.1 H (0.6-1.0) mg/dL Est Cr Clr Drug Dosing 47.60 mL/min Estimated GFR (MDRD) 49.4 ml/min Glucose 75 (74-106) mg/dL POC Glucose 74 185 H (70-99) mg/dL Calcium 8.1 L (8.5-10.1) mg/dL Result Diagrams: 12/26/20 06:12 12/26/20 06:12 Sepsis Event Note - Focused Exam Vital Signs: Vital Signs Temp Pulse Resp BP Pulse Ox 12/26/20 12:00 35.7 C L 74 22 H 113/61 95 12/26/20 08:12 36.2 C 64 22 H 102/55 L 96 12/26/20 03:24 36.5 C 73 18 131/80 97 - Plan Plan:: I have seen and evaluated the patient and agree with the residents note unless specified in my note .
[2020-12-25] MEDS: Pantoprazole 40 MG in Sodium Chloride 0.9% 10 ML IV SCH (12:32)
[2020-12-25] MEDS: cefTRIAXone 1 GM in Premix Bag 1 BAG IV SCH (13:26)
[2020-12-25] MEDS: atorvaSTATin 40 MG Tab PO SCH (20:44)
[2020-12-25] MEDS: Amitriptyline 10 MG Tab PO SCH (20:44)
[2020-12-25] MEDS: Insulin Glargine,Human Rec. Analog 100 Units/ML 3 ML Pen SUBCUT SCH (20:53)
[2020-12-26] MEDS: Phenazopyridine 200 MG Tab PO SCH ×2 (03:28→12:25)
[2020-12-26] MEDS: Sucralfate Suspension 1 GM/10 ML Cup PO SCH ×2 (06:33→12:25)
[2020-12-26] MEDS: Levothyroxine 50 MCG Tab PO SCH (06:33)
[2020-12-26] MEDS: Midodrine 5 MG Tab PO SCH ×2 (06:33→13:53)
[2020-12-26] MEDS: Insulin Aspart 100 Units/ML 3 ML Pen SUBCUT SCH ×2 (06:52→13:12)
[2020-12-26 07:30] LABS: CARBON DIOXIDE,CO2 29.7 mmol/L (21.0-32.0); POTASSIUM,K 3.9 mmol/L (3.5-5.1)
[2020-12-26] MEDS ORDERED: Pantoprazole 40 MG Tab.CR PO SCH (07:30)
[2020-12-26] MEDS: Clopidogrel 75 MG Tab PO SCH (09:53)
[2020-12-26] MEDS: DULoxetine 60 MG Cap PO SCH (09:53)
[2020-12-26] MEDS: Acetaminophen 325 MG Tab PO PRN (09:53)
[2020-12-26] MEDS: Polyethylene Glycol 3350 Powder 17 GM Packet PO SCH (09:58)
[2020-12-26 12:06] VITALS: BP 113/61; PULSE 74
[2020-12-26] MEDS: cefTRIAXone 1 GM in Premix Bag 1 BAG IV SCH (13:53)
--- NOTE | 2020-12-26 14:48 | PCM.DCSUM1 ---
<Anant Morgan - Last Filed: 12/26/20 18:20> Discharge Summary - Hospital Course Free Text/Narrative:: 70-year-old female presents to the emergency department due to generalized weakness and multiple falls in the prior week, admitted for urinary tract infection. Per documentation patient states that she fell last Wednesday when try to get into her vehicle. Patient states she fell on her buttocks, hitting and rolling over onto her right shoulder. Patient states that she hit her head, injured her back. Patient did not report losing consciousness. Patient reports pain to lower back, abdominal pain. Patient states not having a bowel movement in many days. Patient also complains of nausea and vomiting. Per documentation patient had dark coffee ground emesis. Patient denies chest pain, denies orthopnea, denies shortness of breath, denies pedal edema. Patient denies bloody stool. Patient denies dysuria, hematuria. Past medical history to include TIAs, CAD post CABG and multiple stents on Plavix, CHF, and UTIs, lymphoma, spinal metastasis on infliximab, hypertension, diabetes, hyperlipidemia. ED workup includes labs, white blood cell count 8.5, BUN 20, creatinine 1.4. Urinalysis shows moderate leukocyte esterase, 3+ urine bacteria, urine WBC. Urine cultures pending. CT chest shows marked thickening of esophagus, underlying malignancy is not entirely excluded. Moderate hiatal hernia with mucosal hyperemia which could represent additional infectious/ inflammatory changes. CT abdomen pelvis impression-prior cholecystectomy and hysterectomy, thickening of the gastric antrum could be seen in setting of peptic ulcer disease. Moderate to severe stool seen throughout the colon. Markedly distended thick- walled appearing bladder seen in the setting cystitis changes. Lumbar spine CT impression, chronic compression deformities of L1 and L2 levels without evidence of displaced fracture or dislocation. Cervical spine CT impression, multilevel degenerative changes of the cervical spine without evidence of acute osseous abnormality. Thoracic spine CT impression, age-indeterminate compression deformities of superior T5 and T9 levels without evidence of a large displaced fracture. Mild to moderate degenerative changes as well as spasmodic straightening of the nor mal thoracic kyphosis Patient to be admitted for urinary tract infection and suspected cystitis per CT abdomen. Patient treated with IV antibiotics, IV fluids. Patient was discharged home on Keflex, Pyridium. Patient also advised to continue midodrine but discontinue losartan as patient was hypotensive during the hospital admission. Patient advised to continue Protonix for history of gastritis, resume levothyroxine, resume current diabetic treatment regimen. Patient also referred to home health for ambulation generalized strengthening and occupational therapy for a home safety assessment. - Discharge Data Discharge Date: 12/26/20 Discharge Disposition: Home, Self-Care 01 Condition: Stable - Referral to Home Health Date of Face to Face Encounter: 12/25/20 Reason for Homebound Status: 70 F presents with genealized weakness and di ffculty with ambulation with history of falls. Patient to benefit from PT Home health for ambulation and strengthining Primary Care Physician: Salvador Gonzálse MD Skilled Need: Physical Therapy for ambulation and strengthining - Discharge Diagnosis/Problem(s) (1) Esophagitis SNOMED Code(s): 35585906 ICD Code: K20.90 - ESOPHAGITIS, UNSPECIFIED WITHOUT BLEEDING Status: Acute (2) UTI (urinary tract infection) SNOMED Code(s): 76055191 ICD Code: N39.0 - URINARY TRACT INFECTION, SITE NOT SPECIFIED Status: Acute Priority: High Qualifiers: Urinary tract infection type: site unspecified Hematuria presence: without hematuria Qualified Code(s): N39.0 - Urinary tract infection, site not specified (3) DM type 2 (diabetes mellitus, type 2) SNOMED Code(s): 94417487 ICD Code: E11.9 - TYPE 2 DIABETES MELLITUS WITHOUT COMPLICATIONS Status: Acute Qualifiers: Diabetes mellitus cold working inspector insulin use: with cold working inspector use Diabetes mellitus complication status: with circulatory complication Diabetes mellitus complication detail: with other circulatory complications Qualified Code(s): E11.59 - Type 2 diabetes mellitus with other circulatory complications; Z79.4 - FDC (current) use of insulin (4) Fall SNOMED Code(s): 8161003, 727284828 ICD Code: W19.XXXA - UNSPECIFIED FALL, INITIAL ENCOUNTER Status: Acute Qualifiers: Encounter type: initial encounter Qualified Code(s): W19.XXXA - Unspecified fall, initial encounter (5) Headache SNOMED Code(s): 61476897 ICD Code: R51 - HEADACHE * DO NOT USE * Status: Acute Qualifiers: Headache type: unspecified Headache chronicity pattern: unspecified pattern Intractability: not intractable Qualified Code(s): R51.9 - Headache, unspecified (6) History of UTI SNOMED Code(s): 1376980186461, 6895355628380 ICD Code: Z87.440 - PERSONAL HISTORY OF URINARY (TRACT) INFECTIONS Status: Acute (7) CAD (coronary artery disease) SNOMED Code(s): 20135946 ICD Code: I25.10 - ATHSCL HEART DISEASE OF [place] CORONARY ARTERY W/O ANG PCTRS Status: Chronic Priority: Medium Qualifiers: Coronary Disease-Associated Artery/Lesion type: unspecified vessel or lesion type [place] vs. transplanted heart: [place] heart Associated angina: without angina Qualified Code(s): I25.10 - Atherosclerotic heart disease of [place] coronary artery without angina pectoris (8) HTN (hypertension) SNOMED Code(s): 31476081 ICD Code: I10 - ESSENTIAL (PRIMARY) HYPERTENSION Status: Chronic Priority: Medium Qualifiers: Hypertension type: unspecified Qualified Code(s): I10 - Essential (primary) hypertension - Patient Summary/Data Consults: Consultations 12/23/20 19:07 Consult to Physical Therapy [PT Evaluation and Treatment] [CONS] Routine - Patient Instructions Other/Special Instructions: OT, HOME SAFETY EVALUATION - Discharge Plan *PRESCRIPTION DRUG MONITORING PROGRAM REVIEWED*: Not Applicable *COPY OF PRESCRIPTION DRUG MONITORING REPORT IN PATIENT ROCKY: Not Applicable Prescriptions/Med Rec: cephALEXin [Keflex] 500 mg PO Q8H 5 Days #15 cap Phenazopyridine HCl [Pyridium] 200 mg PO TID 1 Days #3 tablet Home Medications: Home Meds Clopidogrel [Plavix] 75 mg PO DAILY 06/18/17 [History] Nitroglycerin [Nitrostat] 0.4 mg SL ASDIRECTED PRN 06/18/17 [History] atorvaSTATin [Lipitor] 80 mg PO BEDTIME 06/18/17 [History] oxyCODONE 10 mg PO Q6H PRN 06/18/17 [History] Amitriptyline [Elavil] 2 tab PO BEDTIME 10/19/17 [History] DULoxetine [Cymbalta] 60 mg PO DAILY 10/19/17 [History] Furosemide 40 mg PO ASDIRECTED PRN 10/19/17 [History] Insulin Glargine,Hum.Rec.Anlog [Basaglar Kwikpen U-100] 40 units SQ BEDTIME 12/08/17 [History] Levothyroxine [Synthroid] 50 mcg PO ACBREAKFAST 04/04/19 [History] Cholecalciferol (Vitamin D3) [Vitamin D3] 25 mcg PO DAILY 10/03/20 [History] Fenofibrate Nanocrystallized [Fenofibrate] 48 mg PO DAILY 10/03/20 [History] InFLIXimab [Remicade] 100 mg IV ASDIRECTED 10/04/20 [History] Acetaminophen [Tylenol] 650 mg PO Q6H PRN tablet 10/08/20 [Rx] Midodrine 5 mg PO TID 12/23/20 [History] Phenazopyridine HCl [Pyridium] 200 mg PO TID 1 Days #3 tablet 12/26/20 [Rx] cephALEXin [Keflex] 500 mg PO Q8H 5 Days #15 cap 12/26/20 [Rx] Patient Handouts: Phenazopyridine tablets, Urinary Tract Infection, Adult, Cephalexin Tablets or Capsules Referrals: Salvador Gonzáles MD [Primary Care Provider] - 01/08/21 9:30 am - Discharge Summary/Plan Comment DC Time >30 min.: Yes - General Info Subjective Update: Patient states improvement in abdominal pain, denies fever, chills, nausea, vomiting, dysuria, hematuria. States improved state and is ready to go home.. - Review of Systems General: Denies: Fever, Chills Pulmonary: Denies: Shortness of Breath, Cough Cardiovascular: Denies: Chest Pain Gastrointestinal: Reports: Abdominal Pain (mild, improved since admission). Denies: Decreased Appetite Genitourinary: Denies: Dysuria Neurological: Denies: Confusion, Headache - Patient Data Vitals - Most Recent: Last Vital Signs Temp 96.2 F L 12/26/20 12:00 Pulse 74 12/26/20 12:00 Resp 22 H 12/26/20 12:00 BP 113/61 12/26/20 12:00 Pulse Ox 95 12/26/20 12:00 Weight - Most Recent: 93.349 kg I&O - Last 24 hours: Intake & Output 12/25/20 12/26/20 12/26/20 22:59 06:59 14:59 Intake Total 1080 1100 Output Total 1150 950 Balance -70 150 Lab Results - Last 24 hrs: Laboratory Results - last 24 hr 12/25/20 12/25/20 12/26/20 Range/Units 16:26 20:52 06:12 WBC 5.16 (4.0-11.0) K/uL RBC 4.01 L (4.30-5.90) M/uL Hgb 11.9 L (12.0-16.0) g/dL Hct 35.1 L (36.0-46.0) % MCV 87.5 (80.0-98.0) fL MCH 29.7 (27.0-32.0) pg MCHC 33.9 (31.0-37.0) g/dL RDW Std Deviation 45.6 (28.0-62.0) fl RDW Coeff of Aranza 14 (11.0-15.0) % Plt Count 207 (150-400) K/uL MPV 10.20 (7.40-12.00) fL Neut % (Auto) 32.3 L (48.0-80.0) % Lymph % (Auto) 51.2 H (16.0-40.0) % [place] % (Auto) 11.2 (0.0-15.0) % Eos % (Auto) 4.7 (0.0-7.0) % Baso % (Auto) 0.6 (0.0-1.5) % Neut # (Auto) 1.7 (1.4-5.7) K/uL Lymph # (Auto) 2.6 H (0.6-2.4) K/uL [place] # (Auto) 0.6 (0.0-0.8) K/uL Eos # (Auto) 0.2 (0.0-0.7) K/uL Baso # (Auto) 0.0 (0.0-0.1) K/uL Nucleated RBC % 0.0 /100WBC Nucleated RBCs # 0 K/uL Sodium (136-145) mmol/L Potassium (3.5-5.1) mmol/L Chloride (98-107) mmol/L Carbon Dioxide (21.0-32.0) mmol/L BUN (7.0-18.0) mg/dL Creatinine (0.6-1.0) mg/dL Est Cr Clr Drug Dosing mL/min Estimated GFR (MDRD) ml/min Glucose (74-106) mg/dL POC Glucose 174 H 176 H (70-99) mg/dL Calcium (8.5-10.1) mg/dL 12/26/20 12/26/20 12/26/20 Range/Units 06:12 06:14 11:23 WBC (4.0-11.0) K/uL RBC (4.30-5.90) M/uL Hgb (12.0-16.0) g/dL Hct (36.0-46.0) % MCV (80.0-98.0) fL MCH (27.0-32.0) pg MCHC (31.0-37.0) g/dL RDW Std Deviation (28.0-62.0) fl RDW Coeff of [place]anza (11.0-15.0) % Plt Count (150-400) K/uL MPV (7.40-12.00) fL Neut % (Auto) (48.0-80.0) % Lymph % (Auto) (16.0-40.0) % [place] % (Auto) (0.0-15.0) % Eos % (Auto) (0.0-7.0) % Baso % (Auto) (0.0-1.5) % Neut # (Auto) (1.4-5.7) K/uL Lymph # (Auto) (0.6-2.4) K/uL [place] # (Auto) (0.0-0.8) K/uL Eos # (Auto) (0.0-0.7) K/uL Baso # (Auto) (0.0-0.1) K/uL Nucleated RBC % /100WBC Nucleated RBCs # K/uL Sodium 142 (136-145) mmol/L Potassium 3.9 (3.5-5.1) mmol/L Chloride 105 (98-107) mmol/L Carbon Dioxide 29.7 (21.0-32.0) mmol/L BUN 13 (7.0-18.0) mg/dL Creatinine 1.1 H (0.6-1.0) mg/dL Est Cr Clr Drug Dosing 47.60 mL/min Estimated GFR (MDRD) 49.4 ml/min Glucose 75 (74-106) mg/dL POC Glucose 74 185 H (70-99) mg/dL Calcium 8.1 L (8.5-10.1) mg/dL Med Orders - Current: Current Medications Acetaminophen (Acetaminophen 325 Mg Tab) 650 mg PO Q6H PRN PRN Reason: Pain Last Admin: 12/26/20 09:53 Dose: 650 mg Documented by: Amitriptyline HCl (Amitriptyline 10 Mg Tab) 20 mg PO BEDTIME [facility] Last Admin: 12/25/20 20:44 Dose: 20 mg Documented by: Atorvastatin Calcium (Atorvastatin 40 Mg Tab) 80 mg PO BEDTIME [facility] Last Admin: 12/25/20 20:44 Dose: 80 mg Documented by: Clopidogrel Bisulfate (Clopidogrel 75 Mg Tab) 75 mg PO DAILY [facility] Last Admin: 12/26/20 09:53 Dose: 75 mg Documented by: Dextrose/Water (50% Dextrose In Water 50 Ml Syringe) 50 ml IVPUSH ASDIRECTED PRN PRN Reason: Hypoglycemia Dextrose/Water (50% Dextrose In Water 50 Ml Syringe) 50 ml IVPUSH ASDIRECTED PRN PRN Reason: Hypoglycemia Duloxetine HCl (Duloxetine 60 Mg Cap) 60 mg PO DAILY [facility] Last Admin: 12/26/20 09:53 Dose: 60 mg Documented by: Glucagon (Glucagon,Human Recombinant 1 Mg Vial) 1 mg IM ASDIRECTED PRN PRN Reason: Hypoglycemia Ceftriaxone Sodium/Dextrose 1 (gm/ Premix) 50 mls @ 100 mls/hr IV Q24H [facility] Last Admin: 12/26/20 13:53 Dose: 100 mls/hr Documented by: Insulin Aspart (Insulin Aspart 100 Units/Ml 3 Ml Pen) 0 unit SUBCUT TIDAC [facility]; Protocol Last Admin: 12/26/20 13:12 Dose: 1 unit Documented by: Insulin Glargine (Insulin Glargine,Human Rec. Analog 100 Units/Ml 3 Ml Pen) 40 units SUBCUT BEDTIME [facility] Last Admin: 12/25/20 20:53 Dose: 40 units Documented by: Levothyroxine Sodium (Levothyroxine 50 Mcg Tab) 50 mcg PO ACBREAKFAST [facility] Last Admin: 12/26/20 06:33 Dose: 50 mcg Documented by: Midodrine (Midodrine 5 Mg Tab) 5 mg PO TID [facility] Last Admin: 12/26/20 13:53 Dose: 5 mg Documented by: Nitroglycerin (Nitroglycerin 0.4 Mg Tab.Sl) 0.4 mg SL ASDIRECTED PRN PRN Reason: Chest Pain Oxycodone HCl (Oxycodone 5 Mg Tab) 10 mg PO Q6H PRN PRN Reason: Pain Last Admin: 12/23/20 21:36 Dose: 5 mg Documented by: Pantoprazole Sodium (Pantoprazole 40 Mg Tab.Cr) 40 mg PO ACBREAKFAST [facility] Last Admin: 12/26/20 06:33 Dose: 40 mg Documented by: Phenazopyridine HCl (Phenazopyridine 200 Mg Tab) 200 mg PO Q8H [facility] Last Admin: 12/26/20 12:25 Dose: 200 mg Documented by: Polyethylene Glycol (Polyethylene Glycol 3350 Powder 17 Gm Packet) 17 gm PO BID [facility] Last Admin: 12/26/20 09:58 Dose: 17 gm Documented by: Sodium Chloride (Sodium Chloride 0.9% 10 Ml Syringe) 10 ml FLUSH ASDIRECTED PRN PRN Reason: Keep Vein Open Last Admin: 12/23/20 11:58 Dose: 10 ml Documented by: Sodium Chloride (Sodium Chloride 0.9% 2.5 Ml Syringe) 2.5 ml FLUSH ASDIRECTED PRN PRN Reason: Keep Vein Open Last Admin: 12/23/20 11:58 Dose: 2.5 ml Documented by: Sucralfate (Sucralfate Suspension 1 Gm/10 Ml Cup) 1 gm PO QIDACANDBED [facility] Last Admin: 12/26/20 12:25 Dose: 1 gm Documented by: Discontinued Medications Sodium Chloride (Normal Saline) 1,000 mls @ 999 mls/hr IV BOLUS ONE Stop: 12/23/20 12:09 Last Admin: 12/23/20 11:57 Dose: 999 mls/hr Documented by: Pantoprazole Sodium 80 mg/ (Sodium Chloride) 20 mls @ 420 mls/hr IVPUSH ONETIME ONE Stop: 12/23/20 11:15 Last Admin: 12/23/20 11:58 Dose: 420 mls/hr Documented by: Ceftriaxone Sodium/Dextrose 1 (gm/ Premix) 50 mls @ 100 mls/hr IV ONETIME ONE Stop: 12/23/20 13:54 Last Admin: 12/23/20 13:53 Dose: 100 mls/hr Documented by: Ceftriaxone Sodium 1 gm/ (Sodium Chloride) 50 mls @ 100 mls/hr IV Q24H [facility] Sodium Chloride (Normal Saline) 1,000 mls @ 125 mls/hr IV ASDIRECTED CHANTE Pantoprazole Sodium 40 mg/ (Sodium Chloride) 10 mls @ 300 mls/hr IV Q24H CHANTE Last Admin: 12/25/20 12:32 Dose: Not Given Documented by: Sodium Chloride (Normal Saline) 1,000 mls @ 75 mls/hr IV ASDIRECTED CHANTE Stop: 12/24/20 05:49 Last Admin: 12/23/20 16:30 Dose: 75 mls/hr Documented by: Sodium Chloride (Normal Saline) 500 mls @ 999 mls/hr IV .BOLUS CHANTE Last Admin: 12/24/20 13:05 Dose: 999 mls/hr Documented by: Iopamidol (Iopamidol 755 Mg/Ml 500 Ml Multipack Bottle) 100 ml IVPUSH ONETIME STA Stop: 12/23/20 17:17 Last Admin: 12/23/20 17:17 Dose: 100 ml Documented by: Losartan Potassium (Losartan 50 Mg Tab) 12.5 mg PO BEDTIME [facility] Last Admin: 12/23/20 21:11 Dose: 12.5 mg Documented by: Ondansetron HCl (Ondansetron 4 Mg/2 Ml Sdv) 4 mg IVPUSH ONETIME ONE Stop: 12/23/20 11:12 Last Admin: 12/23/20 11:58 Dose: 4 mg Documented by: Oxycodone/Acetaminophen (Acetaminophen/Oxycodone 325-10 Mg Tab) 1 tab PO ONETIME ONE Stop: 12/23/20 13:49 Last Admin: 12/23/20 14:05 Dose: 1 tab Documented by: Polyethylene Glycol (Polyethylene Glycol 3350 Powder 17 Gm Packet) 17 gm PO BEDTIME [facility] Last Admin: 12/23/20 21:18 Dose: 17 gm Documented by: Tramadol HCl (Tramadol 50 Mg Tab) 50 mg PO DAILY CHANTE - Exam General: Reports: Alert, Oriented Lungs: Reports: Clear to Auscultation, Normal Respiratory Effort Cardiovascular: Reports: Regular Rate, Regular Rhythm GI/Abdominal Exam: Soft, Tender (mild, suprapubic) Extremities: No: No Pedal Edema Psy/Mental Status: Denies: Alert <Eric,Hooria - Last Filed: 12/27/20 13:02> Discharge Summary - Hospital Course Free Text/Narrative:: I have seen and evaluated the patient and agree with the residents note unless specified in my note - Referral to Home Health Primary Care Physician: Salvador Gonzáles MD - Patient Summary/Data Consults: Consultations 12/23/20 19:07 Consult to Physical Therapy [PT Evaluation and Treatment] [CONS] Routine - Patient Data Vitals - Most Recent: Last Vital Signs Temp 35.7 C L 12/26/20 12:00 Pulse 74 12/26/20 12:00 Resp 22 H 12/26/20 12:00 BP 113/61 12/26/20 12:00 Pulse Ox 95 12/26/20 12:00 JOSE MANUEL Results - Last 24 hrs: Microbiology 12/23/20 13:00 Urine Culture - Final Urine Escherichia Coli Med Orders - Current: Current Medications Discontinued Medications Acetaminophen (Acetaminophen 325 Mg Tab) 650 mg PO Q6H PRN PRN Reason: Pain Last Admin: 12/26/20 09:53 Dose: 650 mg Documented by: Amitriptyline HCl (Amitriptyline 10 Mg Tab) 20 mg PO BEDTIME [facility] Last Admin: 12/25/20 20:44 Dose: 20 mg Documented by: Atorvastatin Calcium (Atorvastatin 40 Mg Tab) 80 mg PO BEDTIME [facility] Last Admin: 12/25/20 20:44 Dose: 80 mg Documented by: Clopidogrel Bisulfate (Clopidogrel 75 Mg Tab) 75 mg PO DAILY [facility] Last Admin: 12/26/20 09:53 Dose: 75 mg Documented by: Dextrose/Water (50% Dextrose In Water 50 Ml Syringe) 50 ml IVPUSH ASDIRECTED PRN PRN Reason: Hypoglycemia Dextrose/Water (50% Dextrose In Water 50 Ml Syringe) 50 ml IVPUSH ASDIRECTED PRN PRN Reason: Hypoglycemia Duloxetine HCl (Duloxetine 60 Mg Cap) 60 mg PO DAILY [facility] Last Admin: 12/26/20 09:53 Dose: 60 mg Documented by: Glucagon (Glucagon,Human Recombinant 1 Mg Vial) 1 mg IM ASDIRECTED PRN PRN Reason: Hypoglycemia Heparin Sodium (Porcine) (Heparin Sodium 100 Units/Ml 5 Ml Syringe) 500 units FLUSH ONETIME ONE Stop: 12/26/20 15:01 Last Admin: 12/26/20 15:18 Dose: 500 units Documented by: Sodium Chloride (Normal Saline) 1,000 mls @ 999 mls/hr IV BOLUS ONE Stop: 12/23/20 12:09 Last Admin: 12/23/20 11:57 Dose: 999 mls/hr Documented by: Pantoprazole Sodium 80 mg/ (Sodium Chloride) 20 mls @ 420 mls/hr IVPUSH ONETIME ONE Stop: 12/23/20 11:15 Last Admin: 12/23/20 11:58 Dose: 420 mls/hr Documented by: Ceftriaxone Sodium/Dextrose 1 (gm/ Premix) 50 mls @ 100 mls/hr IV ONETIME ONE Stop: 12/23/20 13:54 Last Admin: 12/23/20 13:53 Dose: 100 mls/hr Documented by: Ceftriaxone Sodium 1 gm/ (Sodium Chloride) 50 mls @ 100 mls/hr IV Q24H [facility]ANTE Ceftriaxone Sodium/Dextrose 1 (gm/ Premix) 50 mls @ 100 mls/hr IV Q24H [facility]ANTE Last Admin: 12/26/20 13:53 Dose: 100 mls/hr Documented by: Sodium Chloride (Normal Saline) 1,000 mls @ 125 mls/hr IV ASDIRECTED CHANTE Pantoprazole Sodium 40 mg/ (Sodium Chloride) 10 mls @ 300 mls/hr IV Q24H [facility] Last Admin: 12/25/20 12:32 Dose: Not Given Documented by: Sodium Chloride (Normal Saline) 1,000 mls @ 75 mls/hr IV ASDIRECTED CHANTE Stop: 12/24/20 05:49 Last Admin: 12/23/20 16:30 Dose: 75 mls/hr Documented by: Sodium Chloride (Normal Saline) 500 mls @ 999 mls/hr IV .BOLUS [facility] Last Admin: 12/24/20 13:05 Dose: 999 mls/hr Documented by: Insulin Aspart (Insulin Aspart 100 Units/Ml 3 Ml Pen) 0 unit SUBCUT TIDAC [facility]; Protocol Last Admin: 12/26/20 13:12 Dose: 1 unit Documented by: Insulin Glargine (Insulin Glargine,Human Rec. Analog 100 Units/Ml 3 Ml Pen) 40 units SUBCUT BEDTIME [facility] Last Admin: 12/25/20 20:53 Dose: 40 units Documented by: Iopamidol (Iopamidol 755 Mg/Ml 500 Ml Multipack Bottle) 100 ml IVPUSH ONETIME STA Stop: 12/23/20 17:17 Last Admin: 12/23/20 17:17 Dose: 100 ml Documented by: Levothyroxine Sodium (Levothyroxine 50 Mcg Tab) 50 mcg PO ACBREAKFAST [facility] Last Admin: 12/26/20 06:33 Dose: 50 mcg Documented by: Losartan Potassium (Losartan 50 Mg Tab) 12.5 mg PO BEDTIME [facility] Last Admin: 12/23/20 21:11 Dose: 12.5 mg Documented by: Midodrine (Midodrine 5 Mg Tab) 5 mg PO TID [facility] Last Admin: 12/26/20 13:53 Dose: 5 mg Documented by: Nitroglycerin (Nitroglycerin 0.4 Mg Tab.Sl) 0.4 mg SL ASDIRECTED PRN PRN Reason: Chest Pain Ondansetron HCl (Ondansetron 4 Mg/2 Ml Sdv) 4 mg IVPUSH ONETIME ONE Stop: 12/23/20 11:12 Last Admin: 12/23/20 11:58 Dose: 4 mg Documented by: Oxycodone HCl (Oxycodone 5 Mg Tab) 10 mg PO Q6H PRN PRN Reason: Pain Last Admin: 12/23/20 21:36 Dose: 5 mg Documented by: Oxycodone/Acetaminophen (Acetaminophen/Oxycodone 325-10 Mg Tab) 1 tab PO ONETIME ONE Stop: 12/23/20 13:49 Last Admin: 12/23/20 14:05 Dose: 1 tab Documented by: Pantoprazole Sodium (Pantoprazole 40 Mg Tab.Cr) 40 mg PO ACBREAKFAST [facility] Last Admin: 12/26/20 06:33 Dose: 40 mg Documented by: Phenazopyridine HCl (Phenazopyridine 200 Mg Tab) 200 mg PO Q8H [facility] Last Admin: 12/26/20 12:25 Dose: 200 mg Documented by: Polyethylene Glycol (Polyethylene Glycol 3350 Powder 17 Gm Packet) 17 gm PO BEDTIME [facility] Last Admin: 12/23/20 21:18 Dose: 17 gm Documented by: Polyethylene Glycol (Polyethylene Glycol 3350 Powder 17 Gm Packet) 17 gm PO BID [facility] Last Admin: 12/26/20 09:58 Dose: 17 gm Documented by: Sodium Chloride (Sodium Chloride 0.9% 10 Ml Syringe) 10 ml FLUSH ASDIRECTED PRN PRN Reason: Keep Vein Open Last Admin: 12/23/20 11:58 Dose: 10 ml Documented by: Sodium Chloride (Sodium Chloride 0.9% 2.5 Ml Syringe) 2.5 ml FLUSH ASDIRECTED PRN PRN Reason: Keep Vein Open Last Admin: 12/23/20 11:58 Dose: 2.5 ml Documented by: Sucralfate (Sucralfate Suspension 1 Gm/10 Ml Cup) 1 gm PO QIDACANDBED [facility] Last Admin: 12/26/20 12:25 Dose: 1 gm Documented by: Tramadol HCl (Tramadol 50 Mg Tab) 50 mg PO DAILY CHANTE
== END 2020-12-26 15:00 | disposition home or self-care (01) ==
LOC: MW.ED 11:05 → MW.MS 14:12
PROVIDERS: ADMIT Internal Medicine; ATTEND Internal Medicine
DX: N39.0 Urinary tract infection, site not specified (principal); S22.009A Unspecified fracture of unspecified thoracic vertebra, initial encounter for closed fracture; R53.1 Weakness; R29.6 Repeated falls; K20.90 Esophagitis, unspecified without bleeding; E11.59 Type 2 diabetes mellitus with other circulatory complications; R51.9 Headache, unspecified; I25.10 Atherosclerotic heart disease of native coronary artery without angina pectoris; E78.00 Pure hypercholesterolemia, unspecified; I11.0 Hypertensive heart disease with heart failure; I50.9 Heart failure, unspecified; G47.30 Sleep apnea, unspecified; E03.9 Hypothyroidism, unspecified; Z79.4 Long term (current) use of insulin; Z79.899 Other long term (current) drug therapy; Z87.440 Personal history of urinary (tract) infections; Z20.822 Contact with and (suspected) exposure to COVID-19; Z79.01 Long term (current) use of anticoagulants; W19.XXXA Unspecified fall, initial encounter
CPT/HCPCS: 36415; 70450; 71260; 72125; 74177; 80048; 80053; 81001; 82947; 83605; 83690; 83735; 83880; 84484; 85025; 86850; 86900; 86901; 87086; 87088; 87186; 93005; 93971; 96365; 96366; 96375; 96376; 97110; 97162; 97530; 99285; A9270; C9113; G0378; J0696; J1642; J1815; J2405; J7030; J7040; Q9967; U0002; 72128; 72128-26; 72131-26; 93010; 99284

== ENCOUNTER 2021-01-22 15:44 | Emergency (ER) | payer MEDICARE, OTHER | END 2021-01-22 18:10 | disposition left against medical advice (07) | LOC: MW.ED 15:44 | DX: Z53.21 Procedure and treatment not carried out due to patient leaving prior to being seen by health care provider (principal) ==

== ENCOUNTER 2021-01-24 11:33 | Emergency (ER) | payer MEDICARE, OTHER ==
--- NOTE | 2021-01-24 16:35 | PCM.EKG ---
#1 Interpretation EKG Date: 01/24/21 Time: 16:26 Rhythm: NSR Rate (Beats/Min): 76 [place]: Normal P-Wave: Present QRS: Normal ST-T: Normal QT: Normal SC/PQ Interval: 164 EKG Interpretation Comments: normal EKG
[2021-01-24 17:13] LABS: BLOOD UREA NITROGEN,BUN 30 mg/dL (7.0-18.0); CARBON DIOXIDE,CO2 28.5 mmol/L (21.0-32.0); CHLORIDE,CL 100 mmol/L (98-107); GLUCOSE RANDOM 132 mg/dL (74-106); POTASSIUM,K 4.2 mmol/L (3.5-5.1); SODIUM,NA 136 mmol/L (136-145)
--- NOTE | 2021-01-24 17:16 | CT ---
INDICATION: Foot drop. Comparison 10/03/2020. TECHNIQUE: Noncontrast CT head. FINDINGS: Mild motion artifact. Mild generalized cerebral volume loss. Patchy low-attenuation change within the white matter consistent with chronic small ischemic changes. More focal area of low attenuation in the right frontal lobe white matter likely represents old infarct. No acute intracranial hemorrhage, acute infarct, mass effect, or fracture. No midline shift. No abnormal ventricular dilatation. Normal calvarium and skull base. Visualized paranasal sinuses and mastoid air cells are clear. Intracranial carotid artery calcifications. Normal orbits bilaterally. IMPRESSION: 1. No acute intracranial abnormality. 2. Mild generalized volume loss. Chronic deep white matter small vessel ischemic changes. 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 3. No interval change Please note that all CT scans at this facility use dose modulation, iterative reconstruction, and/or weight-based dosing when appropriate to reduce radiation dose to as low as reasonably achievable. Dictated by Manohar Massey MD @ 01/24/2021 5:15:17 PM (Electronically Signed)
--- NOTE | 2021-01-24 17:28 | CR ---
INDICATION: Leg numbness after injury. TECHNIQUE: Two views. IMPRESSION: No fracture. No bone lesion. Prominent atherosclerotic vascular calcification. Some scattered punctate soft tissue mineralization from presumed venous stasis. Dictated by Lucho Abraham MD @ 01/24/2021 5:27:44 PM (Electronically Signed)
[2021-01-24] MEDS ORDERED: Sodium Chloride 0.9% 1,000 ML IV ONE (18:05)
--- NOTE | 2021-01-24 18:10 | MR ---
INDICATION: Right foot drop. Lymphoma. COMPARISON: 12/23/2020. Technique Sagittal T1, T2, and STIR sequences. Axial T1 and T2 weighted sequences. FINDINGS: Lumbar scoliotic curvature convex to the right. In sagittal plane, normal vertebral body alignment. Stable chronic compression fracture in anterior wedging of the L1 vertebral body with Schmorl`s node along superior endplate. Best seen on STIR imaging, there is abnormal marrow edema of the bilateral sacral ala extending across midline involving the S3 sacral segment. Finds consistent with a sacral insufficiency fracture. No suspicious osseous lesions. Normal conus terminates at T12-L1. T12-L1: Disc generation posterior disc bulge. No narrowing of spinal canal or neural foramina. L1-2: Disc degeneration and diffuse disc bulge. No narrowing of spinal canal. No neural foraminal narrowing. L2-3: Disc degeneration diffuse disc bulge eccentric to the left. No narrowing of spinal canal. No neural foraminal narrowing. L3-4: Disc degeneration and posterior disc bulge. Mild narrowing of spinal canal. No neural foraminal narrowing. Mild facet arthropathy. L4-5: Disc degeneration diffuse disc bulge eccentric to the right. No narrowing of spinal canal. No neural foraminal narrowing. L5-S1: No narrowing of spinal canal. No neural foraminal narrowing. Mild facet arthropathy. Degenerative changes of the SI joints. Injection granulomas or old hematomas in the subcutaneous fat posteriorly at the level of the upper sacrum. No retroperitoneal adenopathy IMPRESSION: 1. Recent sacral insufficiency fractures. 2. No acute fractures of the lumbar spine. 3. Chronic compression fracture of L1. 4. Lumbar spondylosis 5. At L3-4, mild narrowing of spinal canal. 6. No severe spinal canal or neural foraminal narrowing at the remaining levels Dictated by Manohar Massey MD @ 01/24/2021 6:09:28 PM (Electronically Signed)
[2021-01-24] MEDS ORDERED: Sulfamethoxazole/Trimethoprim 800-160 MG Tab PO ONE (19:59)
--- NOTE | 2021-01-24 21:12 | EDM.PDOC ---
ED HPI GENERAL MEDICAL PROBLEM - General Chief Complaint: General Stated Complaint: WANTS MRI DONE Time Seen by Provider: 01/24/21 15:48 Source of Information: Reports: Patient History Limitations: Reports: No Limitations - History of Present Illness INITIAL COMMENTS - FREE TEXT/NARRATIVE: HISTORY AND PHYSICAL: History of present illness: Patient is a 70-year-old female who presents emergency room today with concern of right lower extremity weakness x2 days. Patient states that she went to her primary care physician today and was instructed to come to the emergency room for further evaluation/MRI consideration. Patient states that she does have a history of prior to mini strokes 3 years ago. Patient state at her baseline she does walk with a walker but has had issues with walking due to her right lower extremity weakness and states that her "toes curl under her "as she is trying to walk. Patient states that this has gotten worse over 2 days and does note that she has had urinary incontinence and states that this is not usual for her. Patient denies any bowel incontinence or retention or saddle anesthesia. Patient denies any sensation changes associated with the weakness. Patient denies any trauma or injury. Patient states that she does have a history of "brainstem and cervical spine lesions "but states that she has had these biopsied at [facility] and was told that it is "not cancer ". Patient states that she does receive Remicade every 4 weeks and follows this with her neurologist, Dr. Crowley and [facility] the [facility]. Patient states that she does have frequent falls but has not had a fall in a few weeks. Patient states that her last fall, she did injure her right lower extremity but states that it has since improved and bruising but does have some mild swelling still of her right lower extremity. Patient denies any head injury or loss of consciousness. Patient denies any other resuscitative sympt oms. Patient denies fever, chills, chest pain, shortness of breath, or cough. Denies headache, neck stiff ness, change in vision, syncope, or near syncope. Denies nausea, vomiting, abdominal pain, diarrhea, constipation, or dysuria. Has not noted any blood in urine or stool. Patient has been eating and drinking appropriately. Review of systems: As per history of present illness and below otherwise all systems reviewed and negative. Past medical history: As per history of present illness and as reviewed below otherwise noncontributory. Surgical history: As per history of present illness and as reviewed below otherwise noncontributory. Social history: See social history for further information Family history: As per history of present illness and as reviewed below otherwise noncon tributory. Physical exam: General: Patient is alert, oriented, and in no acute distress. Patient sitting comfortably on exam table. Vitals stable and reviewed by me. HEENT: Atraumatic, normocephalic, pupils equal and reactive bilaterally, negative for conjunctival pallor or scleral icterus, mucous membranes moist, TMs normal bilaterally, throat clear, neck supple, nontender, trachea midline. No drooling or trismus noted. No meningeal signs. No hot potato voice noted. Lungs: Clear to auscultation, breath sounds equal bilaterally, chest nontender. Heart: S1S2, regular rate and rhythm without overt murmur Abdomen: Soft, nondistended, nontender. Negative for masses or hepatosplenomegaly. Negative for costovertebral tenderness. Pelvis: Stable nontender. Genitourinary: Deferred. Rectal: Deferred. Skin: Intact, warm, dry. No lesions or rashes noted. Extremities: Intact sensation to light and deep touch of the complete right and left lower extremity. Patient has 4/5 strength of right ankle with dorsiflexion in comparison to the left and 3/5 of the right knee in comparison to the left, otherwise, patient has intact strength of the right and left lower extremity. Patient does have mores restriction with passive ROM of the right ankle dorsiflexion and ROM of the knee. The muscles are more "tense" than to the left. This limits my exam. Clonus difficult to assess due to this. Patient has full range of motion and intact sensation to light and deep touch of the complete bilateral upper extremities. Radial pulses are grossly intact bilaterally with capillary refill less than 2 seconds. Dorsalis pedis and posterior tibial pulses are intact via Doppler bilaterally. When patient does try to ambulate with a walker, she does have dropfoot noted of the right lower extremity which does make her gait difficult and patient is off balance. Atraumatic, negative for cords or calf pain. Neurovascular unremarkable. Neuro: Awake, alert, oriented. Cranial nerves II through XII unremarkable. Cerebellum unremarkable. Motor and sensory unremarkable throughout. Exam nonfocal. Notes: (Patient was initially triaged to the waiting room and has a delay in care for approximately 3 hours prior to my examination of patient) Patient is a 70-year-old female who presents emergency room today secondary to right lower extremity weakness x2 days with associated urinary incontinence. Upon arrival to the ED, patient is noted to have a dropfoot of her right lower extremity with increased muscle tone of the right lower extremity with gait. Otherwise, exam unremarkable. Given MRI limitations in the emergency room at our facility, they only have enough time to obtain a lumbar MRI and unable to obtain brain, cervical, or thoracic MRI given time limitations. Will obtain lumbar MRI, head CT, and cardiac evaluation. See Dr. Israel dictation for specific EEG and interpretation. However, normal sinus rhythm without STEMI. Mild derangements of CBC unremarkable. CMP noted for an elevation of creatinine at 2 and BUN at 30, which does appear slightly worsened from prior. Glucose mildly elevated at 132. Alk phos elevated in isolation at 123. Troponin negative. Otherwise my derangements of CMP unremarkable. Urinalysis does show 3+ bacteria with too numerous to count white blood cells 0 red blood cells and positive leukocyte Estrace. Interpretation: Acute cystitis. Will give dose Maricarmen trim given allergy list. Lumbar MRI shows recent sacral insufficiency fractures. No acute fracture of the lumbar spine. Chronic compression fracture of L1. Lumbar spondylosis. At L3-L4 mild narrowing of the spinal canal. No severe spinal canal or neuroforaminal narrowing at the remaining levels. Head CT shows no acute intracranial abnormality. Mild generalized volume loss. Chronic deep white matter small vessel ischemic changes. 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 No interval change. Tib-fib x-ray shows no fracture. No bone lesion. Prominent atherosclerotic v ascular calcification. Some scattered punctate soft tissue mineralization from presumed venous stasis. I did call and speak to the neurologist on-call for Dr. Dave Fleming. He is unsure whether patient requires emergent/urgent MRI and due to limitations of exam does not feel comfortable making a statement on this. Then called and spoke to the neurologist on-call for [facility] in [place], Dr. Reynoso, and thoroughly discussed patient's case. 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 He is recommending patient to be transferred to this facility to receive urgent MRI of her head and cervical spine. Then spoke to the hospitalist on-call for [facility], Dr. Carter and thoroughly discussed patient's case. Accepting of transfer. EMS transfer was offered to patient, however, she declines requesting private vehicle transfer. Upon reevaluation of patient, she remains vitally stable and comfortable throughout stay in ED. Voices understanding and is agreeable to plan of care. Denies any further questions or concerns at this time. Will transfer to Dr. Carter, hospitalist and Dr. Reynoso, neurology via private vehicle Diagnostics: BC, CMP, troponin, urinalysis, lumbar spine MRI, EKG, head CT, tib-fib x-ray Therapeutics: NS, Bactrim DS Impression: Right foot drop Urinary tract infection Abnormal renal function testing Plan: Transfer to [facility] via private vehicle Definitive disposition and diagnosis as appropriate pending reevaluation and review of above. - Related Data Allergies Allergy/AdvReac Type Severity Reaction Status Date / Time Penicillins Allergy Severe Cannot Verified 12/23/20 15:54 Remember silver Allergy Rash Verified 12/23/20 15:54 [From Tegaderm AG Mesh] tegaderm Allergy Burning Uncoded 12/23/20 15:54 Home Meds: Home Meds Clopidogrel [Plavix] 75 mg PO DAILY 06/18/17 [History] Nitroglycerin [Nitrostat] 0.4 mg SL ASDIRECTED PRN 06/18/17 [History] atorvaSTATin [Lipitor] 80 mg PO BEDTIME 06/18/17 [History] oxyCODONE 10 mg PO Q6H PRN 06/18/17 [History] Amitriptyline [Elavil] 2 tab PO BEDTIME 10/19/17 [History] DULoxetine [Cymbalta] 60 mg PO DAILY 10/19/17 [History] Furosemide 40 mg PO ASDIRECTED PRN 10/19/17 [History] Insulin Glargine,Hum.Rec.Anlog [Basaglar Kwikpen U-100] 40 units SQ BEDTIME 12/08/17 [History] Levothyroxine [Synthroid] 50 mcg PO ACBREAKFAST 04/04/19 [History] Cholecalciferol (Vitamin D3) [Vitamin D3] 25 mcg PO DAILY 10/03/20 [History] Fenofibrate Nanocrystallized [Fenofibrate] 48 mg PO DAILY 10/03/20 [History] InFLIXimab [Remicade] 100 mg IV ASDIRECTED 10/04/20 [History] Acetaminophen [Tylenol] 650 mg PO Q6H PRN tablet 10/08/20 [Rx] Midodrine 5 mg PO TID 12/23/20 [History] Phenazopyridine HCl [Pyridium] 200 mg PO TID 1 Days #3 tablet 12/26/20 [Rx] cephALEXin [Keflex] 500 mg PO Q8H 5 Days #15 cap 12/26/20 [Rx] Past Medical History HEENT History: Reports: Impaired Vision Cardiovascular History: Reports: Angina, Bypass, Heart Failure, Heart Murmur, High Cholesterol, Hypertension, CO, Stents Other Cardiovascular History: 'partial heart' Respiratory History: Reports: Sleep Apnea Other Respiratory History: pneumonia. 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 stroke in the passed 3 years . Had 2 storkes for the past 3 years. stroke affecting left arm. numbness to left arm. right arm partially numb. Bilateal lower legs are numb. 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 Dermatologic History: Reports: Eczema - Infectious Disease History Infectious Disease History: Reports: Chicken Pox, Measles, Mumps - Past Surgical History Head Surgeries/Procedures: Reports: None HEENT Surgical History: Reports: Adenoidectomy, Cataract Surgery, Tonsillectomy, Other (See Below) Other HEENT Surgeries/Procedures: Sinus surgery, blepheroplasty Cardiovascular Surgical History: Reports: Coronary Artery Bypass, Coronary Artery Stent, Other (See Below) Other Cardiovascular Surgeries/Procedures: 3 bypasses, 10 stents Respiratory Surgical History: Reports: None GI Surgical History: Reports: Cholecystectomy Female Surgical History: Reports: Breast Biopsy, Hysterectomy Neurological Surgical History: Reports: None Musculoskeletal Surgical History: Reports: Carpal Tunnel Oncologic Surgical History: Reports: None Dermatological Surgical History: Reports: None Social & Family History - Family History Family Medical History: No Pertinent Family History - Tobacco Use Tobacco Use Status *Q: Never Tobacco User Second Hand Smoke Exposure: No - Caffeine Use Caffeine Use: Reports: None Other Caffeine Use: coffee twice a week Caffeine Use Comment: 2-3 cups coffee/week - Recreational Drug Use Recreational Drug Use: No - Living Situation & Occupation Living situation: Reports: Alone Occupation: Retired ED ROS GENERAL - Review of Systems Review Of Systems: Comprehensive ROS is negative, except as noted in HPI. ED EXAM, GENERAL - Physical Exam Exam: See Below (see dictation) Course - Vital Signs Last Recorded V/S: Last Vital Signs Temp 97.2 F 01/24/21 21:34 Pulse 82 01/24/21 21:34 Resp 18 01/24/21 21:34 BP 124/85 01/24/21 21:34 Pulse Ox 97 01/24/21 21:34 - Orders/Labs/Meds Orders: Active Orders 24 hr Category Date Time Status CULTURE URINE [MREF] Stat Lab 01/24/21 15:56 Received Labs: Laboratory Tests 01/24/21 01/24/21 01/24/21 Range/Units 15:56 16:37 16:37 WBC 9.93 (4.0-11.0) K/uL RBC 4.42 (4.30-5.90) M/uL Hgb 13.1 (12.0-16.0) g/dL Hct 38.8 (36.0-46.0) % MCV 87.8 (80.0-98.0) fL MCH 29.6 (27.0-32.0) pg MCHC 33.8 (31.0-37.0) g/dL RDW Std Deviation 47.9 (28.0-62.0) fl RDW Coeff of Aranza 15 (11.0-15.0) % Plt Count 230 (150-400) K/uL MPV 9.60 (7.40-12.00) fL Neut % (Auto) 45.8 L (48.0-80.0) % Lymph % (Auto) 38.4 (16.0-40.0) % Real % (Auto) 11.4 (0.0-15.0) % Eos % (Auto) 4.0 (0.0-7.0) % Baso % (Auto) 0.4 (0.0-1.5) % Neut # (Auto) 4.6 (1.4-5.7) K/uL Lymph # (Auto) 3.8 H (0.6-2.4) K/uL Real # (Auto) 1.1 H (0.0-0.8) K/uL Eos # (Auto) 0.4 (0.0-0.7) K/uL Baso # (Auto) 0.0 (0.0-0.1) K/uL Nucleated RBC % 0.0 /100WBC Nucleated RBCs # 0 K/uL Sodium 136 (136-145) mmol/L Potassium 4.2 (3.5-5.1) mmol/L Chloride 100 (98-107) mmol/L Carbon Dioxide 28.5 (21.0-32.0) mmol/L BUN 30 H (7.0-18.0) mg/dL Creatinine 2.0 H (0.6-1.0) mg/dL Est Cr Clr Drug Dosing 27.16 mL/min Estimated GFR (MDRD) 24.8 ml/min Glucose 132 H (74-106) mg/dL Calcium 8.4 L (8.5-10.1) mg/dL Total Bilirubin 0.7 (0.2-1.0) mg/dL AST 19 (15-37) IU/L ALT 17 (14-63) IU/L Alkaline Phosphatase 123 H (46-116) U/L Troponin I < 0.050 (0.000-0.056) ng/mL Total Protein 6.3 L (6.4-8.2) g/dL Albumin 2.7 L (3.4-5.0) g/dL Globulin 3.6 (2.6-4.0) g/dL Albumin/Globulin Ratio 0.8 L (0.9-1.6) Urine Color YELLOW Urine Appearance CLOUDY Urine pH 6.0 (5.0-8.0) Ur Specific [place] 1.025 (1.001-1.035) Urine Protein TRACE H (NEGATIVE) mg/dL Urine Glucose (UA) NEGATIVE (NEGATIVE) mg/dL Urine Ketones NEGATIVE (NEGATIVE) mg/dL Urine Occult Blood SMALL H (NEGATIVE) Urine Nitrite NEGATIVE (NEGATIVE) Urine Bilirubin NEGATIVE (NEGATIVE) Urine Urobilinogen 0.2 (<2.0) EU/dL Ur Leukocyte Esterase MODERATE H (NEGATIVE) Urine RBC 0-3 (0-2/HPF) Urine WBC TO NUMEROUS TO COUNT H (0-5/HPF) Ur Epithelial Cells FEW (NONE-FEW) Urine Bacteria 3+ H (NEGATIVE) Urine Yeast MODERATE SARS-CoV-2 RNA (VERO) (NEGATIVE) 01/24/21 Range/Units 21:00 WBC (4.0-11.0) K/uL RBC (4.30-5.90) M/uL Hgb (12.0-16.0) g/dL Hct (36.0-46.0) % MCV (80.0-98.0) fL MCH (27.0-32.0) pg MCHC (31.0-37.0) g/dL RDW Std Deviation (28.0-62.0) fl RDW Coeff of Aranza (11.0-15.0) % Plt Count (150-400) K/uL MPV (7.40-12.00) fL Neut % (Auto) (48.0-80.0) % Lymph % (Auto) (16.0-40.0) % Real % (Auto) (0.0-15.0) % Eos % (Auto) (0.0-7.0) % Baso % (Auto) (0.0-1.5) % Neut # (Auto) (1.4-5.7) K/uL Lymph # (Auto) (0.6-2.4) K/uL Real # (Auto) (0.0-0.8) K/uL Eos # (Auto) (0.0-0.7) K/uL Baso # (Auto) (0.0-0.1) K/uL Nucleated RBC % /100WBC Nucleated RBCs # K/uL Sodium (136-145) mmol/L Potassium (3.5-5.1) mmol/L Chloride (98-107) mmol/L Carbon Dioxide (21.0-32.0) mmol/L BUN (7.0-18.0) mg/dL Creatinine (0.6-1.0) mg/dL Est Cr Clr Drug Dosing mL/min Estimated GFR (MDRD) ml/min Glucose (74-106) mg/dL Calcium (8.5-10.1) mg/dL Total Bilirubin (0.2-1.0) mg/dL AST (15-37) IU/L ALT (14-63) IU/L Alkaline Phosphatase (46-116) U/L Troponin I (0.000-0.056) ng/mL Total Protein (6.4-8.2) g/dL Albumin (3.4-5.0) g/dL Globulin (2.6-4.0) g/dL Albumin/Globulin Ratio (0.9-1.6) Urine Color Urine Appearance Urine pH (5.0-8.0) Ur Specific [place] (1.001-1.035) Urine Protein (NEGATIVE) mg/dL Urine Glucose (UA) (NEGATIVE) mg/dL Urine Ketones (NEGATIVE) mg/dL Urine Occult Blood (NEGATIVE) Urine Nitrite (NEGATIVE) Urine Bilirubin (NEGATIVE) Urine Urobilinogen (<2.0) EU/dL Ur Leukocyte Esterase (NEGATIVE) Urine RBC (0-2/HPF) Urine WBC (0-5/HPF) Ur Epithelial Cells (NONE-FEW) Urine Bacteria (NEGATIVE) Urine Yeast SARS-CoV-2 RNA (VERO) NEGATIVE (NEGATIVE) Meds: Medications Discontinued Medications Generic Name Dose Route Start Last Admin Trade Name Freq PRN Reason Stop Dose Admin Heparin Sodium (Porcine) 500 units 01/24/21 21:08 01/24/21 21:27 Heparin Sodium 100 Units/Ml 5 Ml Syringe FLUSH 01/24/21 21:09 500 units NOW STA Administration Heparin Sodium (Porcine) Confirm 01/24/21 21:07 01/24/21 21:27 Heparin Sodium 100 Units/Ml 5 Ml Syringe Administered 01/24/21 21:08 Not Given Dose 500 units .ROUTE .STK-MED ONE Sodium Chloride 1,000 mls @ 999 mls/hr 01/24/21 18:05 01/24/21 18:41 Normal Saline IV 01/24/21 19:05 999 mls/hr STAT ONE Administration Trimethoprim/Sulfamethoxazole 1 tab 01/24/21 19:59 01/24/21 20:30 Sulfamethoxazole/Trimethoprim 800-160 Mg Tab PO 01/24/21 20:00 1 tab ONETIME ONE Administration Departure - Departure Time of Disposition: 21:09 Disposition: DC/Tfer to Acute Hospital 02 Clinical Impression: Foot drop, right, Abnormal kidney function Urinary tract infection Qualifiers: Urinary tract infection type: acute cystitis Hematuria presence: without hematuria Qualified Code(s): N30.00 - Acute cystitis without hematuria - Discharge Information Referrals: Salvador Gonzáles MD [Primary Care Provider] - Forms: ED Department Discharge Additional Instructions: 1. Go straight to [facility] in [place]. The address has been provided above for you. 2. Dr. Carter, hospitalist, has accepted transfer and spoke to Neurologist, Dr. Reynoso [facility] [phone] [address] [place] [address] Sepsis Event Note (ED) - Evaluation Sepsis Screening Result: No Definite Risk - My Orders Last 24 Hours: My Active Orders 01/24/21 15:56 CULTURE URINE [MREF] Stat - Assessment/Plan Last 24 Hours: My Active Orders 01/24/21 15:56 CULTURE URINE [MREF] Stat
[2021-01-24 21:35] VITALS: BP 124/85; PULSE 82
== END 2021-01-24 22:06 ==
LOC: MW.ED 11:33
DX: N30.00 Acute cystitis without hematuria (principal); M21.371 Foot drop, right foot; R94.4 Abnormal results of kidney function studies; I11.0 Hypertensive heart disease with heart failure; I50.9 Heart failure, unspecified; E78.00 Pure hypercholesterolemia, unspecified; I25.2 Old myocardial infarction; E11.9 Type 2 diabetes mellitus without complications; E03.9 Hypothyroidism, unspecified; Z88.0 Allergy status to penicillin; Z88.8 Allergy status to other drugs, medicaments and biological substances; Z79.02 Long term (current) use of antithrombotics/antiplatelets; Z79.4 Long term (current) use of insulin; Z79.899 Other long term (current) drug therapy; Z79.01 Long term (current) use of anticoagulants; Z20.822 Contact with and (suspected) exposure to COVID-19
CPT/HCPCS: 36415; 70450; 72148; 73590; 80053; 81001; 84484; 85025; 87086; 93005; 99285; A9270; J1642; J7030; U0002

== ENCOUNTER 2021-02-24 19:19 | Emergency (ER) | payer MEDICARE, OTHER ==
[2021-02-24 19:58] VITALS: BP 119/84; PULSE 87
--- NOTE | 2021-02-24 20:48 | EDM.PDOC ---
ED HPI GENERAL MEDICAL PROBLEM - General Chief Complaint: Skin Complaint Stated Complaint: LT HAND LACERATION Time Seen by Provider: 02/24/21 20:45 Source of Information: Reports: Patient History Limitations: Reports: No Limitations - History of Present Illness INITIAL COMMENTS - FREE TEXT/NARRATIVE: HISTORY AND PHYSICAL: History of present illness: Patient is a 70-year-old female who presents to the emergency room with complaints of a skin tear of the left hand. She states she was trying to get into her new motorized scooter when her hand hit the corner of the door jam re sulting in a 3 x 3 cm superficial skin tear. No active bleeding is noted. She states she wanted to be evaluated as she is on Lovenox and was concerned she could bleed if it did not get closed. Patient denies any fever, chills, headache, change in vision, syncope or near syncope. Denies any chest pain, back pain, shortness of breath or cough. Denies any abdominal pain, nausea, vomiting, diarrhea, constipation or dysuria. Has not noted any blood in urine or stool. Patient has been eating and drinking appropriately. No recent travel or sick contacts. Review of systems: As per history of present illness and below otherwise all systems reviewed and negative. Past medical history: As per history of present illness and as reviewed below otherwise noncontributory. Surgical history: As per history of present illness and as reviewed below otherwise noncontributory. Social history: See social history for further information Family history: As per history of present illness and as reviewed below otherwise noncontributory. Physical exam: General: Well developed and well nourished. Alert and orientated x 3. Nontoxic in appearance and in no acute distress. Vital signs are stable and have been reviewed by me. Nursing notes were reviewed. HEENT: Atraumatic, normocephalic, pupils equal and reactive bilaterally, negative for conjunctival pallor or scleral icterus, mucous membranes moist, trachea midline. No drooling or trismus noted. No meningeal signs. No hot potato voice noted. Lungs: Clear to auscultation bilaterally. Normal work of breathing, no accessory muscles used. Heart: S1S2, regular rate and rhythm Skin: 3 cm x 3 cm "C" shaped superficial skin tear of the left hand. No active bleeding. Intact, warm, dry. No lesions or rashes noted. Hematologic: No petechiae or purpra. Mucosa appropriate color and normal nail bed color and refill. Extremities: See SKIN for details. She moves all extremities per self without difficulty or deficits, good flexion and extension of fingers/hand/wrist. Cap refill less than 3 seconds. Neurovascular unremarkable. Neuro: Awake, alert, oriented. Cranial nerves II through XII unremarkable. Cerebellum unremarkable. Motor and sensory unremarkable throughout. Exam nonfocal. Psychiatric: Mood and affect are appropriate. Normal thought process. Answering questions appropriately. Please note that the patient was seen and evaluated during the 2019 SARS-CoV-2 novel coronavirus pandemic period. Community viral transmission is ongoing at time of this encounter and the emergency department is operating under pandemic response procedures. Medical Decision Making: Patient is a 70-year-old female who presents to the emergency room with complaints of a skin tear of her left hand. The skin tear is superficial and is not appropriate for stitches. We will thoroughly cleanse the site and use Steri-Strips to close. She declines wanting an x-ray stating she "knows nothing is broken". Tetanus has been updated within the last few years. I have talked with the patient about today's findings, in addition to providing specific details for plan of care. Reassessment at the time of disposition demonstrates that the patient is in no acute distress. The patient is stable for discharge, counseling was provided and we discussed in great detail signs and symptoms that would prompt them to return to the Emergency Department. Medication, follow up and supportive care measures were reviewed and discussed. Voices understanding and is agreeable to plan of care. Denies any further questions or concerns at this time. Diagnostics: None Therapeutics: Wound Care, steri-strips Prescription: None Impression: Skin tear Plan: 1. You were evaluated today on an emergent basis. Your skin was too thin to place sutures in. The wound was closed with steri-strips. These will call off on their own. Please do not pull or remove them until the start falling off. Keep the skin clean and dry. 2. You can take Tylenol as needed for pain management. 3. We encourage you to follow up with your primary care provider for re- evaluation and further care/management. 4. If your symptoms should worsen, new symptoms develop or any of the signs and symptoms we discussed should arise please return to the emergency room or call 911 (if needed). Definitive disposition and diagnosis as appropriate pending reevaluation and review of above. - Related Data Allergies Allergy/AdvReac Type Severity Reaction Status Date / Time Penicillins Allergy Severe Cannot Verified 02/24/21 19:58 Remember silver Allergy Rash Verified 02/24/21 19:58 [From Tegaderm AG Mesh] tegaderm Allergy Burning Uncoded 02/24/21 19:58 Home Meds: Home Meds Clopidogrel [Plavix] 75 mg PO DAILY 06/18/17 [History] Nitroglycerin [Nitrostat] 0.4 mg SL ASDIRECTED PRN 06/18/17 [History] atorvaSTATin [Lipitor] 80 mg PO BEDTIME 06/18/17 [History] oxyCODONE 10 mg PO Q6H PRN 06/18/17 [History] Amitriptyline [Elavil] 2 tab PO BEDTIME 10/19/17 [History] DULoxetine [Cymbalta] 60 mg PO DAILY 10/19/17 [History] Furosemide 40 mg PO ASDIRECTED PRN 10/19/17 [History] Insulin Glargine,Hum.Rec.Anlog [Basaglar Kwikpen U-100] 40 units SQ BEDTIME 12/08/17 [History] Levothyroxine [Synthroid] 50 mcg PO ACBREAKFAST 04/04/19 [History] Cholecalciferol (Vitamin D3) [Vitamin D3] 25 mcg PO DAILY 10/03/20 [History] Fenofibrate Nanocrystallized [Fenofibrate] 48 mg PO DAILY 10/03/20 [History] InFLIXimab [Remicade] 100 mg IV ASDIRECTED 10/04/20 [History] Acetaminophen [Tylenol] 650 mg PO Q6H PRN tablet 10/08/20 [Rx] Midodrine 5 mg PO TID 12/23/20 [History] Phenazopyridine HCl [Pyridium] 200 mg PO TID 1 Days #3 tablet 12/26/20 [Rx] cephALEXin [Keflex] 500 mg PO Q8H 5 Days #15 cap 12/26/20 [Rx] Past Medical History HEENT History: Reports: Impaired Vision Cardiovascular History: Reports: Angina, Bypass, Heart Failure, Heart Murmur, High Cholesterol, Hypertension, [place], Stents Other Cardiovascular History: 'partial heart' Respiratory History: Reports: Sleep Apnea Other Respiratory History: pneumonia. Uses bipap at night Gastrointestinal History: Reports: None Genitourinary History: Reports: UTI, Recurrent [employer] History: Reports: Musculoskeletal History: Reports: Fracture Other Musculoskeletal History: Lower back fracture, Ribs Neurological History: Reports: Concussion, CVA, Headaches, Chronic, Head Trauma, Vertigo, Other (See Below) Other Neuro History: brainstem and spinal cord lesions. stroke in the passed 3 years . Had 2 storkes for the past 3 years. stroke affecting left arm. numbness to left arm. right arm partially numb. Bilateal lower legs are numb. 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 Dermatologic History: Reports: Eczema - Infectious Disease History Infectious Disease History: Reports: Chicken Pox, Measles, Mumps - Past Surgical History Head Surgeries/Procedures: Reports: None HEENT Surgical History: Reports: Adenoidectomy, Cataract Surgery, Tonsillectomy, Other (See Below) Other HEENT Surgeries/Procedures: Sinus surgery, blepheroplasty Cardiovascular Surgical History: Reports: Coronary Artery Bypass, Coronary Artery Stent, Other (See Below) Other Cardiovascular Surgeries/Procedures: 3 bypasses, 10 stents Respiratory Surgical History: Reports: None GI Surgical History: Reports: Cholecystectomy Female Surgical History: Reports: Breast Biopsy, Hysterectomy Neurological Surgical History: Reports: None Musculoskeletal Surgical History: Reports: Carpal Tunnel Oncologic Surgical History: Reports: None Dermatological Surgical History: Reports: None Social & Family History - Family History Family Medical History: No Pertinent Family History - Caffeine Use Caffeine Use: Reports: None Other Caffeine Use: coffee twice a week Caffeine Use Comment: 2-3 cups coffee/week - Living Situation & Occupation Living situation: Reports: Alone Occupation: Retired ED ROS GENERAL - Review of Systems Review Of Systems: Comprehensive ROS is negative, except as noted in HPI. ED EXAM, SKIN/RASH Exam: See Below (See dictation) Course - Vital Signs Last Recorded V/S: Last Vital Signs Temp 98.2 F 02/24/21 19:53 Pulse 87 02/24/21 19:53 Resp 16 02/24/21 19:53 BP 119/84 02/24/21 19:53 Pulse Ox 95 02/24/21 19:53 Departure - Departure Time of Disposition: 20:47 Disposition: Home, Self-Care 01 Clinical Impression: Skin tear of hand without complication Qualifiers: Encounter type: initial encounter Laterality: left Qualified Code(s): S61.412A - Laceration without foreign body of left hand, initial encounter - Discharge Information Instructions: Skin Tear, [id number] Referrals: Salvador Gonzáles MD [Primary Care Provider] - Forms: ED Department Discharge Additional Instructions: The following information is given to patients seen in the emergency department who are being discharged to home. This information is to outline your options for follow-up care. We provide all patients seen in our emergency department with a follow-up referral. The need for follow-up, as well as the timing and circumstances, are variable depending upon the specifics of your emergency department visit. If you don't have a primary care physician on staff, we will provide you with a referral. We always advise you to contact your personal physician following an emergency department visit to inform them of the circumstance of the visit and for follow-up with them and/or the need for any referrals to a consulting specialist. The emergency department will also refer you to a specialist when appropriate. This referral assures that you have the opportunity for follow-up care with a specialist. All of these measure are taken in an effort to provide you with optimal care, which includes your follow-up. Under all circumstances we always encourage you to contact your private physician who remains a resource for coordinating your care. When calling for follow-up care, please make the office aware that this follow-up is from your recent emergency room visit. If for any reason you are refused follow-up, please contact the [facility] Emergency Department at and asked to speak to the emergency department charge nurse. [facility] [address] [place] [id number] [facility] [address] [place] [id number] Thank you for choosing the [facility] emergency department in [place] for your medical needs today. It was a pleasure caring for you. Today you were seen in the emergency department for skin tear. 1. You were evaluated today on an emergent basis. Your skin was too thin to place sutures in. The wound was closed with steri-strips. These will call off on their own. Please do not pull or remove them until the start falling off. Keep the skin clean and dry. 2. You can take Tylenol as needed for pain management. 3. We encourage you to follow up with your primary care provider for re- evaluation and further care/management. 4. If your symptoms should worsen, new symptoms develop or any of the signs and symptoms we discussed should arise please return to the emergency room or call 911 (if needed). Sepsis Event Note (ED) - Focused Exam Vital Signs: Vital Signs Temp Pulse Resp BP Pulse Ox 02/24/21 19:53 98.2 F 87 16 119/84 95
== END 2021-02-24 21:30 | disposition home or self-care (01) ==
LOC: MW.ED 19:19
DX: S61.412A Laceration without foreign body of left hand, initial encounter (principal); I11.0 Hypertensive heart disease with heart failure; I50.9 Heart failure, unspecified; E78.00 Pure hypercholesterolemia, unspecified; E11.9 Type 2 diabetes mellitus without complications; E03.9 Hypothyroidism, unspecified; I25.2 Old myocardial infarction; Z79.899 Other long term (current) drug therapy; Z86.73 Personal history of transient ischemic attack (TIA), and cerebral infarction without residual deficits; Z95.1 Presence of aortocoronary bypass graft; Z88.0 Allergy status to penicillin; Z91.048 Other nonmedicinal substance allergy status; Z88.8 Allergy status to other drugs, medicaments and biological substances; W26.8XXA Contact with other sharp object(s), not elsewhere classified, initial encounter
CPT/HCPCS: 99282

== ENCOUNTER 2021-03-07 12:43 | Emergency (ER) | payer MEDICARE, OTHER ==
[2021-03-07] MEDS ORDERED: Lactated Ringers 1,000 ML IV SCH (13:30)
--- NOTE | 2021-03-07 13:43 | CR ---
INDICATION: Shortness of breath, cough TECHNIQUE: Chest radiograph 1 view COMPARISON: 10/03/2020 FINDINGS: The sensitivity and specificity of the exam are moderately limited by the patient`s body habitus. Mediastinum: Previous median sternotomy and coronary artery bypass grafting (CABG) noted. The heart silhouette is normal in size and morphology. Right Port-A-Cath is noted interval change. There is increased density in the right paratracheal region near the thoracic inlet. Lung: Both lungs are unremarkable in appearance with small lung volumes. No sign of pleural effusion seen. No pneumothorax is identified. Bone and Soft tissue: Unremarkable for age. IMPRESSION: 1. There is increased density in the right paratracheal region near the thoracic inlet. Assessment with chest CT may be helpful. Dictated by Ming Squires MD @ 03/07/2021 1:41:28 PM Dictated by: Ming Squires MD @ 03/07/2021 13:42:37 (Electronically Signed)
--- NOTE | 2021-03-07 13:52 | PCM.EKG ---
#1 Interpretation EKG Date: 03/07/21 Time: 13:42 Rhythm: NSR Rate (Beats/Min): 92 [place]: LAD-Left [place] Deviation P-Wave: Present QRS: Normal ST-T: Normal QT: Normal Comparison: No Change (01/24/21) EKG Interpretation Comments: Sinus Rhythm
[2021-03-07 16:04] LABS: CARBON DIOXIDE,CO2 30.5 mmol/L (21.0-32.0); POTASSIUM,K 4.1 mmol/L (3.5-5.1)
--- NOTE | 2021-03-07 17:28 | CT ---
Indication: Evaluate right paratracheal density on chest x-ray. Technique: CT of the chest without IV contrast. Coronal and sagittal reconstructions. Comparison: Chest radiograph 03/07/2021. CT chest 12/23/2020. Findings: Normal heart size. Normal caliber thoracic aorta and central pulmonary arteries. Extensive coronary artery and aortic vascular calcifications. Sternotomy with CABG. Right IJ Port-A-Cath with tip in the low SVC. No pericardial effusion. No thoracic lymphadenopathy. Stable small left thyroid nodule. There are new multifocal patchy ground-glass opacities throughout the lungs bilaterally which have a peripheral and basilar predominance. These are likely infectious or inflammatory. No dense consolidation. No pleural effusion or pneumothorax. No other findings to explain the right paratracheal density seen on chest radiograph. No central endobronchial lesion. Stable 3 mm noncalcified pulmonary nodule in the lateral left lower lobe which may be calcified (series 2, image 90). Stable 3 mm noncalcified pulmonary nodule in the lingula (image 76). No new pulmonary nodules identified. Small hiatal hernia. Again seen is wall thickening of the mid to distal esophagus with obliteration of fat planes. This is not well evaluated without IV contrast. Stable small gastrohepatic lymph nodes. Upper abdominal vascular calcifications. Cholecystectomy. The visualized unenhanced upper abdomen is otherwise unremarkable. Degenerative changes of the spine. Chronic compression fractures of T5, T9, and L1. New healing nondisplaced fractures of the left anterior 3rd and 5th ribs. Impression: 1. New multifocal patchy ground-glass opacities throughout the lungs bilaterally which are likely infectious or inflammatory. Rule out COVID. 2. Two stable 3 mm pulmonary nodules in the left lung, one of which may be calcified. Please see follow-up guidelines below. 3. Wall thickening of the mid to distal esophagus with obliteration of fat planes again seen but not well evaluated on this noncontrast exam. 4. New healing nondisplaced fractures of the left anterior 3rd and 5th ribs. [employer] GUID[employer] - SOLID NODULES: : MULTIPLE LOW RISK - nodule less than 6 mm: No routine follow-up. - nodule 6-8 mm: CT at 3-6 months, then consider CT at 18-24 months. - nodule greater than 8 mm: CT at 3-6 months, then consider CT at 18-24 months. MULTIPLE HIGH RISK - nodule less than 6 mm: Optional CT at 12 months. - nodule 6-8 mm: CT at 3-6 months, then at 18-24 months. - nodule greater than 8 mm: CT at 3-6 months, then at 18-24 months. Please note that all CT scans at this facility use dose modulation, iterative reconstruction, and/or weight-based dosing when appropriate to reduce radiation dose to as low as reasonably achievable. Dictated by Shana Ruby MD @ 03/07/2021 5:27:10 PM (Electronically Signed)
--- NOTE | 2021-03-07 18:16 | EDM.PDOC ---
ED HPI GENERAL MEDICAL PROBLEM - General Chief Complaint: Respiratory Problem Stated Complaint: sob coughig is worse more weak Time Seen by Provider: 03/07/21 12:50 - History of Present Illness INITIAL COMMENTS - FREE TEXT/NARRATIVE: CHIEF COMPLAINT(S): Weakness HISTORY OF PRESENT ILLNESS: This is a 70-year-old woman with a past medical history of neurosarcoidosis with bilateral lower extremity weakness secondary to neurosarcoidosis, diabetes mellitus, hypertension, hypothyroidism with recent diagnosis of COVID-19 pneumonia who presents to the emergency department with a chief complaint of weakness. The patient states that she received her Regeneron transfusion yesterday. She states that since that time she has been feeling weaker. She states that she has a cough which is productive of clear sputum. She states that she feels dehydrated and that her mouth is dry. She denies any chest pain, shortness of breath, abdominal pain, nausea or vomiting. She denies any diarrhea. She states that she has decreased appetite. She denies any other symptoms. REVIEW OF SYSTEMS: Constitutional: Positive for weakness and possible dehydration. Denies fever, chills. Eyes: Denies eye pain Ears, Nose, Mouth, & Throat: Denies earache Cardiovascular: Denies chest pain Respiratory: Positive for productive cough. Denies shortness of breath Gastrointestinal: Denies Nausea, vomiting, diarrhea, hematochezia. Genitourinary: Denies hematuria Skin:Denies a rash MSK: Denies joint pain Neurological: Denies blurred vision Psychiatric: Denies depression PAST MEDICAL HISTORY: As per history of present illness and as reviewed below otherwise noncontributory. SURGICAL HISTORY: As per history of present illness and as reviewed below otherwise noncontributory. SOCIAL HISTORY: As per history of present illness and as reviewed below otherwise noncontributory. FAMILY HISTORY: As per history of present illness and as reviewed below otherwise noncontributory. EXAMINATION OF ORGAN SYSTEMS/BODY AREAS: Constitutional: Blood pressure is 114/61, heart rate 103, respiratory rate 20 with an oxygen saturation 96% on room air. Temperature 35.7 General: Overall well-appearing woman who is in no acute distress Psychiatric: Appropriate mood and affect. Eyes: No scleral icterus or conjunctival erythema ENMT: Mildly dry mucous membranes.. No pharyngeal erythema Cardiovascular: Regular, rate, and rhythm. No gallops, murmurs, or rubs. Bilateral upper extremity pulses symmetric and intact. No peripheral edema. No JVD. Respiratory: Lungs clear to auscultation bilaterally. No wheezes, rales, or rhonchi. Gastrointestinal: Soft, non-tender, non-distended. Normoactive bowel sounds Genitourinary: No suprapubic tenderness Musculoskeletal: No deformity Skin: No lesions or abrasions. Neurological: Alert, GCS 15 MEDICAL DECISION MAKING AND COURSE IN THE ED WITH INTERPRETATION/REVIEW OF DIAGNOSTIC STUDIES: This is a 70-year-old woman with a past medical history of neurosarcoidosis with bilateral lower extremity weakness secondary to neurosarcoidosis, diabetes mellitus, hypertension, hypothyroidism with recent diagnosis of COVID-19 pneumonia who presents to the emergency department with a chief complaint of weakness who has stable vital signs. At this time we did obtain an EKG which was unremarkable. At this time obtain CBC, CMP, INR and will obtain a chest x-ray given that she is complaining of a productive cough. Will encourage p.o. toleration however we will provide the patient with 1 L of lactated Ringer's bolus for mild dehydration. Laboratory: CBC reveals a normocytic anemia with hemoglobin of 11.7 and thrombocytopenia at 133 otherwise unremarkable. INR is normal. CMP reveals elevated BUN at 34 and creatinine of 1.6 this is actually better than her prior on January 24, 2021., Hyperglycemia at 150. Otherwise unremarkable. The radiological images were viewed by myself along with reading the report from the radiologist. Chest x-ray reveals previous median sternotomy and CABG with increased density in the right paratracheal region near the thoracic inlet otherwise unremarkable. Given the chest x-ray findings will obtain a CT without contrast for further evaluation of this density. CT chest without contrast reveals new multifocal patchy groundglass opacities. 2 stable 3 mm pulmonary nodules in the left lung. With wall thickening of the mid to distal esophagus with new healing nondisplaced fracture of the left anterior third and fifth ribs. After imaging I did discuss results with the patient. At this time the patient was able to tolerate p.o. At this time given the patient's normal vital signs, inability to tolerate p.o. I do not believe the patient requires inpatient admission. I did discuss strict return precautions with the patient. She was amenable to discharge and had no further questions DISPOSITION: The patient was discharged home in stable condition. The patient will follow up with primary care physician in 3 to 5 days CONDITION: Fair PROCEDURES: None FINAL IMPRESSION(S)/DIAGNOSES: 1. Acute COVID-19 Renan Garduno M.D. - Related Data Allergies Allergy/AdvReac Type Severity Reaction Status Date / Time Penicillins Allergy Severe Cannot Verified 03/07/21 13:09 Remember silver Allergy Rash Verified 03/07/21 13:09 [From Tegaderm AG Mesh] tegaderm Allergy Burning Uncoded 03/07/21 13:09 Home Meds: Home Meds Clopidogrel [Plavix] 75 mg PO DAILY 06/18/17 [History] Nitroglycerin [Nitrostat] 0.4 mg SL ASDIRECTED PRN 06/18/17 [History] atorvaSTATin [Lipitor] 80 mg PO BEDTIME 06/18/17 [History] Amitriptyline [Elavil] 2 tab PO BEDTIME 10/19/17 [History] DULoxetine [Cymbalta] 60 mg PO DAILY 10/19/17 [History] Furosemide 40 mg PO .ISAIAS,BETTY,SAT PRN 10/19/17 [History] Insulin Glargine,Hum.Rec.Anlog [Basaglar Kwikpen U-100] 50 units SQ BEDTIME 12/08/17 [History] Levothyroxine [Synthroid] 50 mcg PO ACBREAKFAST 04/04/19 [History] Fenofibrate Nanocrystallized [Fenofibrate] 48 mg PO DAILY 10/03/20 [History] Midodrine 5 mg PO TID PRN 12/23/20 [History] Diclofenac Sodium 1 applic TOP QID PRN 03/07/21 [History] Insulin Aspart [Novolog Flexpen] 10 unit SQ TIDAC 03/07/21 [History] Insulin Isophane NPH, Human [HumuLIN N] 15 unit SQ DAILY 03/07/21 [History] Losartan [Cozaar] 12.5 mg PO BEDTIME 03/07/21 [History] Melatonin 5 mg PO BEDTIME 03/07/21 [History] Pantoprazole Sodium [Protonix] 40 mg PO DAILY 03/07/21 [History] metFORMIN [Glucophage] 500 mg PO DAILY 03/07/21 [History] Past Medical History HEENT History: Reports: Impaired Vision Cardiovascular History: Reports: Angina, Bypass, Heart Failure, Heart Murmur, High Cholesterol, Hypertension, IA, Stents Other Cardiovascular History: 'partial heart' Respiratory History: Reports: Pneumonia, Recurrent, Sleep Apnea Other Respiratory History: uses cpap at night Gastrointestinal History: Reports: None Genitourinary History: Reports: UTI, Recurrent 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 stroke in the passed 3 years . Had 2 storkes for the past 3 years. stroke affecting left arm. numbness to left arm. right arm partially numb. Bilateal lower legs are numb. 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 Dermatologic History: Reports: Eczema - Infectious Disease History Infectious Disease History: Reports: Chicken Pox, Measles, Mumps - Past Surgical History Head Surgeries/Procedures: Reports: None HEENT Surgical History: Reports: Adenoidectomy, Cataract Surgery, Tonsillectomy, Other (See Below) Other HEENT Surgeries/Procedures: Sinus surgery, blepheroplasty Cardiovascular Surgical History: Reports: Coronary Artery Bypass, Coronary Artery Stent, Other (See Below) Other Cardiovascular Surgeries/Procedures: 3 bypasses, 10 stents Respiratory Surgical History: Reports: None GI Surgical History: Reports: Cholecystectomy Female Surgical History: Reports: Breast Biopsy, Hysterectomy Neurological Surgical History: Reports: None Musculoskeletal Surgical History: Reports: Carpal Tunnel Oncologic Surgical History: Reports: None Dermatological Surgical History: Reports: None Social & Family History - Family History Family Medical History: No Pertinent Family History - Tobacco Use Tobacco Use Status *Q: Never Tobacco User - Caffeine Use Caffeine Use: Reports: Coffee Other Caffeine Use: coffee twice a week Caffeine Use Comment: 2-3 cups coffee/week - Recreational Drug Use Recreational Drug Use: No - Living Situation & Occupation Living situation: Reports: Alone Occupation: Retired ED ROS GENERAL - Review of Systems Review Of Systems: See Below ED EXAM, GENERAL - Physical Exam Exam: See Below Course - Vital Signs Last Recorded V/S: Last Vital Signs Temp 35.7 C L 03/07/21 13:20 Pulse 71 03/07/21 18:44 Resp 17 03/07/21 18:44 BP 123/71 03/07/21 18:21 Pulse Ox 95 03/07/21 18:44 - Orders/Labs/Meds Labs: Laboratory Tests 03/07/21 03/07/21 03/07/21 Range/Units 14:20 14:20 14:20 WBC 7.13 (4.0-11.0) K/uL RBC 3.95 L (4.30-5.90) M/uL Hgb 11.7 L (12.0-16.0) g/dL Hct 36.2 (36.0-46.0) % MCV 91.6 (80.0-98.0) fL MCH 29.6 (27.0-32.0) pg MCHC 32.3 (31.0-37.0) g/dL RDW Std Deviation 57.9 (28.0-62.0) fl RDW Coeff of Aranza 17 H (11.0-15.0) % Plt Count 133 L (150-400) K/uL MPV 10.00 (7.40-12.00) fL Neut % (Auto) 68.0 (48.0-80.0) % Lymph % (Auto) 27.3 (16.0-40.0) % [place] % (Auto) 4.6 (0.0-15.0) % Eos % (Auto) 0.0 (0.0-7.0) % Baso % (Auto) 0.1 (0.0-1.5) % Neut # (Auto) 4.8 (1.4-5.7) K/uL Lymph # (Auto) 2.0 (0.6-2.4) K/uL [place] # (Auto) 0.3 (0.0-0.8) K/uL Eos # (Auto) 0.0 (0.0-0.7) K/uL Baso # (Auto) 0.0 (0.0-0.1) K/uL Nucleated RBC % 0.0 /100WBC Nucleated RBCs # 0 K/uL INR 0.99 Sodium (136-145) mmol/L Potassium (3.5-5.1) mmol/L Chloride (98-107) mmol/L Carbon Dioxide (21.0-32.0) mmol/L BUN (7.0-18.0) mg/dL Creatinine (0.6-1.0) mg/dL Est Cr Clr Drug Dosing mL/min Estimated GFR (MDRD) ml/min Glucose (74-106) mg/dL Lactic Acid 1.5 (0.4-2.0) mmol/L Calcium (8.5-10.1) mg/dL Total Bilirubin (0.2-1.0) mg/dL AST (15-37) IU/L ALT (14-63) IU/L Alkaline Phosphatase (46-116) U/L Total Protein (6.4-8.2) g/dL Albumin (3.4-5.0) g/dL Globulin (2.6-4.0) g/dL Albumin/Globulin Ratio (0.9-1.6) 03/07/21 Range/Units 15:30 WBC (4.0-11.0) K/uL RBC (4.30-5.90) M/uL Hgb (12.0-16.0) g/dL Hct (36.0-46.0) % MCV (80.0-98.0) fL MCH (27.0-32.0) pg MCHC (31.0-37.0) g/dL RDW Std Deviation (28.0-62.0) fl RDW Coeff of Aranza (11.0-15.0) % Plt Count (150-400) K/uL MPV (7.40-12.00) fL Neut % (Auto) (48.0-80.0) % Lymph % (Auto) (16.0-40.0) % [place] % (Auto) (0.0-15.0) % Eos % (Auto) (0.0-7.0) % Baso % (Auto) (0.0-1.5) % Neut # (Auto) (1.4-5.7) K/uL Lymph # (Auto) (0.6-2.4) K/uL [place] # (Auto) (0.0-0.8) K/uL Eos # (Auto) (0.0-0.7) K/uL Baso # (Auto) (0.0-0.1) K/uL Nucleated RBC % /100WBC Nucleated RBCs # K/uL INR Sodium 141 (136-145) mmol/L Potassium 4.1 (3.5-5.1) mmol/L Chloride 106 (98-107) mmol/L Carbon Dioxide 30.5 (21.0-32.0) mmol/L BUN 34 H (7.0-18.0) mg/dL Creatinine 1.6 H (0.6-1.0) mg/dL Est Cr Clr Drug Dosing 32.73 mL/min Estimated GFR (MDRD) 32.1 ml/min Glucose 150 H (74-106) mg/dL Lactic Acid (0.4-2.0) mmol/L Calcium 7.7 L (8.5-10.1) mg/dL Total Bilirubin 0.4 (0.2-1.0) mg/dL AST 25 (15-37) IU/L ALT 31 (14-63) IU/L Alkaline Phosphatase 82 (46-116) U/L Total Protein 5.1 L (6.4-8.2) g/dL Albumin 2.0 L (3.4-5.0) g/dL Globulin 3.1 (2.6-4.0) g/dL Albumin/Globulin Ratio 0.7 L (0.9-1.6) Meds: Medications Discontinued Medications Generic Name Dose Route Start Last Admin Trade Name Freq PRN Reason Stop Dose Admin Heparin Sodium (Porcine) 500 units 03/07/21 18:20 03/07/21 18:41 Heparin Sodium 100 Units/Ml 5 Ml Syringe FLUSH 03/07/21 18:21 500 units STAT STA Administration Lactated Ringer's 1,000 mls @ 999 mls/hr 03/07/21 13:30 03/07/21 14:37 Ringers, Lactated IV 999 mls/hr ASDIRECTED CHANTE Administration Departure - Departure Time of Disposition: 18:15 Disposition: Home, Self-Care 01 Condition: Fair Clinical Impression: COVID-19 - Discharge Information *PRESCRIPTION DRUG MONITORING PROGRAM REVIEWED*: No *COPY OF PRESCRIPTION DRUG MONITORING REPORT IN PATIENT ROCKY: No Instructions: COVID-19 Frequently Asked Questions, 10 Things You Can Do to Manage Your COVID-19 Symptoms at Home - [facility] (12/06/2020), COVID-19: How to Protect Yourself and Others - [facility] Referrals: Salvador Gonzáles MD [Primary Care Provider] - Forms: ED Department Discharge Additional Instructions: You were evaluated today on an emergent basis. At this time I do believe the way you are feeling is likely secondary to the monoclonal antibodies you received yesterday. Your oxygen and all of your labs were within normal limits. I recommend that you continue to monitor your oxygen at home and keep hydrated with Gatorade, Pedialyte or fluids. I do recommend that you monitor your oxygen saturation and if it is less than 91% I want you to come to the emergency department. In addition if you have any worsening chest pain or shortness of breath. You should take acetaminophen 500-1000 mg every 6 hours as needed for fever and muscle aches. Please drink plenty of fluids and get plenty of rest over the next several days. We would recommend that she get a pulse oximeter from the pharmacy to keep an eye on your oxygen level. If your oxygen level drops below 91%, you should return to the ED for evaluation. You should return to the ER sooner if you start having any symptoms of shortness of breath or any other new or concerning symptoms. 1. Your COVID-19 screening is positive. That means you do have the coronavirus and you are considered contagious. Your vital signs and oxygen saturation are well enough that you were able to monitor your symptoms at home. Continue to monitor for trouble breathing, new confusion or inability to arouse, bluish lips or face or any of the other symptoms we discussed -if this occurs please return to the emergency room. 2. Please self quarantine over the next 10 days. Inform any persons that you have been in contact with since you started becoming symptomatic that you have tested positive; they should be made aware and take the appropriate steps as needed. 3. May alternate Tylenol and ibuprofen as needed for pain and fever management. 4. The [facility] department will be calling you and following up with you. The [place] COVID 19 Hotline phone number , They are open Wednesday - Wednesday 7am - 7pm. Follow up with your primary care provider for re-evaluation and re-testing after the 10 day quarantine and discuss when you should be seen. [facility] - Primary [facility] [address] [place], [place] [address], [place] [address] [facility] [address] [place] [address] The patient is informed of any results of their evaluation and diagnostic workup and all questions are answered. They are given discharge instructions and return precautions. The patient is stable for discharge. The patient states they understand and agree with the plan and that they will return if their symptoms get worse or if they have any new concerns. The following information is given to patients seen in the emergency department who are being discharged to home. This information is to outline your options for follow-up care. We provide all patients seen in our emergency department with a follow-up referral. The need for follow-up, as well as the timing and circumstances, are variable depending upon the specifics of your emergency department visit. If you don't have a primary care physician on staff, we will provide you with a referral. We always advise you to contact your personal physician following an emergency department visit to inform them of the circumstance of the visit and for follow-up with them and/or the need for any referrals to a consulting specialist. The emergency department will also refer you to a specialist when appropriate. This referral assures that you have the opportunity for follow-up care with a specialist. All of these measure are taken in an effort to provide you with optimal care, which includes your follow-up. Under all circumstances we always encourage you to contact your private physician who remains a resource for coordinating your care. When calling for follow-up care, please make the office aware that this follow-up is from your recent emergency room visit. If for any reason you are refused follow-up, please contact the [facility] Emergency Department at and asked to speak to the emergency department charge nurse. Sepsis Event Note (ED) - Evaluation Sepsis Screening Result: No Definite Risk
[2021-03-07 18:21] VITALS: BP 123/71
[2021-03-07 18:45] VITALS: PULSE 71
== END 2021-03-07 18:44 | disposition home or self-care (01) ==
LOC: MW.ED 12:43
DX: U07.1 COVID-19 (principal); I11.0 Hypertensive heart disease with heart failure; I50.9 Heart failure, unspecified; I25.2 Old myocardial infarction; E78.00 Pure hypercholesterolemia, unspecified; E11.9 Type 2 diabetes mellitus without complications; E66.9 Obesity, unspecified; Z68.32 Body mass index [BMI] 32.0-32.9, adult; Z95.5 Presence of coronary angioplasty implant and graft; Z88.0 Allergy status to penicillin; Z91.048 Other nonmedicinal substance allergy status; Z88.8 Allergy status to other drugs, medicaments and biological substances; Z86.73 Personal history of transient ischemic attack (TIA), and cerebral infarction without residual deficits
CPT/HCPCS: 36415; 71045; 71250; 80053; 83605; 85025; 85610; 93005; 99285; J1642; J7120

== ENCOUNTER 2021-05-24 16:28 | Emergency (ER) | payer MEDICARE, OTHER ==
[2021-05-24] MEDS ORDERED: Sodium Chloride 0.9% 10 ML Syringe FLUSH PRN (16:41)
[2021-05-24] MEDS ORDERED: Sodium Chloride 0.9% 2.5 ML Syringe FLUSH PRN (16:41)
--- NOTE | 2021-05-24 16:55 | EDM.PDOC ---
<Junaid Maynard - Last Filed: 05/24/21 17:48> ED HPI GENERAL MEDICAL PROBLEM - General Stated Complaint: EMS Time Seen by Provider: 05/24/21 16:35 - History of Present Illness INITIAL COMMENTS - FREE TEXT/NARRATIVE: History of present illness: [] Patient started having chest pain that radiated to her jaw and back 7 AM when she got up. She is a little bit more short of breath than usual. She does not feel like it is the same as when she had the diaphoresis nausea and other associated symptoms with he had previous MIs. She has had multiple MIs. She does not have any cough or fever. She does not have any nausea vomiting or diarrhea. Review of systems: As per history of present illness and below otherwise all systems reviewed and negative. Past medical history: As per history of present illness and as reviewed below otherwise noncontributory. Surgical history: As per history of present illness and as reviewed below otherwise noncontributory. Social history: No reported history of drug or alcohol abuse. Family history: As per history of present illness and as reviewed below otherwise noncontributory. Physical exam: Constitutional - well developed, well-nourished and in no acute distress HEENT - normocephalic, no evidence of trauma - external nose and mouth normal - no mass in neck and no JVD - mucosae moist EYES - full EOM, PERRL, no icterus - no evidence of inflammation, injection, or drainage Respiratory - no respiratory distress, equal bilateral expansion, lungs clear to auscultation and no abnormal lung sounds Cardiovascular - Regular Rhythm with S1 and S2 appreciated and no murmur, gallop or rub. GI - abdomen soft without distension or organomegaly - normal bowel sounds - no guard or rebound Musculoskeletal no gross deformity of long bones or joints - no tenderness, swelling or edema Neurologic - Alert and oriented times four - CN II-XII grossly intact - motor sensory and coordination symmetrically normal Psychiatric - appropriate mood and affect with normal thought content Hematologic - No petechiae or purpura - mucosa appropriate color and sclera not pale - normal nail bed color and refill Integument - no rash or evidence of trauma - normal turgor Diagnostics: [] Therapeutics: [] Impression: [] Plan: [] Definitive disposition and diagnosis as appropriate pending reevaluation and review of above. chest Pain Score (Numeric/FACES): 5 - Related Data Allergies Allergy/AdvReac Type Severity Reaction Status Date / Time Penicillins Allergy Severe Cannot Verified 05/24/21 17:27 Remember silver Allergy Rash Verified 05/24/21 17:27 [From Tegaderm AG Mesh] tegaderm Allergy Burning Uncoded 05/24/21 17:27 Home Meds: Home Meds Clopidogrel [Plavix] 75 mg PO DAILY 06/18/17 [History] Nitroglycerin [Nitrostat] 0.4 mg SL ASDIRECTED PRN 06/18/17 [History] atorvaSTATin [Lipitor] 80 mg PO BEDTIME 06/18/17 [History] Amitriptyline [Elavil] 2 tab PO BEDTIME 10/19/17 [History] DULoxetine [Cymbalta] 60 mg PO DAILY 10/19/17 [History] Furosemide 40 mg PO .TUE,THUR,SAT PRN 10/19/17 [History] Insulin Glargine,Hum.Rec.Anlog [Basaglar Kwikpen U-100] 50 units SQ BEDTIME 12/08/17 [History] Levothyroxine [Synthroid] 50 mcg PO ACBREAKFAST 04/04/19 [History] Fenofibrate Nanocrystallized [Fenofibrate] 48 mg PO DAILY 10/03/20 [History] Midodrine 5 mg PO TID PRN 12/23/20 [History] Diclofenac Sodium 1 applic TOP QID PRN 03/07/21 [History] Insulin Aspart [Novolog Flexpen] 10 unit SQ TIDAC 03/07/21 [History] Insulin Isophane NPH, Human [HumuLIN N] 15 unit SQ DAILY 03/07/21 [History] Losartan [Cozaar] 12.5 mg PO BEDTIME 03/07/21 [History] Melatonin 5 mg PO BEDTIME 03/07/21 [History] Pantoprazole Sodium [Protonix] 40 mg PO DAILY 03/07/21 [History] metFORMIN [Glucophage] 500 mg PO DAILY 03/07/21 [History] Past Medical History HEENT History: Reports: Impaired Vision Cardiovascular History: Reports: Angina, Bypass, Heart Failure, Heart Murmur, High Cholesterol, Hypertension, [place], Stents Other Cardiovascular History: 'partial heart' Respiratory History: Reports: Pneumonia, Recurrent, Sleep Apnea Other Respiratory History: uses cpap at night Gastrointestinal History: Reports: None Genitourinary History: Reports: UTI, Recurrent CA[employer] OR [employer] History: Reports: Musculoskeletal History: Reports: Fracture Other Musculoskeletal History: Lower back fracture, Ribs Neurological History: Reports: Concussion, CVA, Headaches, Chronic, Head Trauma, Vertigo, Other (See Below) Other Neuro History: brainstem and spinal cord lesions. stroke in the passed 3 years . Had 2 storkes for the past 3 years. stroke affecting left arm. numbness to left arm. right arm partially numb. Bilateal lower legs are numb. 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 Dermatologic History: Reports: Eczema - Infectious Disease History Infectious Disease History: Reports: Chicken Pox, Measles, Mumps - Past Surgical History Head Surgeries/Procedures: Reports: None HEENT Surgical History: Reports: Adenoidectomy, Cataract Surgery, Tonsillectomy, Other (See Below) Other HEENT Surgeries/Procedures: Sinus surgery, blepheroplasty Cardiovascular Surgical History: Reports: Coronary Artery Bypass, Coronary Artery Stent, Other (See Below) Other Cardiovascular Surgeries/Procedures: 3 bypasses, 10 stents Respiratory Surgical History: Reports: None GI Surgical History: Reports: Cholecystectomy Female Surgical History: Reports: Breast Biopsy, Hysterectomy Neurological Surgical History: Reports: None Musculoskeletal Surgical History: Reports: Carpal Tunnel Oncologic Surgical History: Reports: None Dermatological Surgical History: Reports: None Social & Family History - Family History Family Medical History: No Pertinent Family History - Caffeine Use Caffeine Use: Reports: Coffee Other Caffeine Use: coffee twice a week Caffeine Use Comment: 2-3 cups coffee/week - Living Situation & Occupation Living situation: Reports: Alone Occupation: Retired ED ROS GENERAL - Review of Systems Review Of Systems: Comprehensive ROS is negative, except as noted in HPI. ED EXAM, GENERAL - Physical Exam Exam: See Below Free Text/Narrative:: My physical exam is in the HPI #1 Interpretation EKG Interpretation Comments: EKG done 05/24/2021 at 533 p.o. shows a sinus rhythm with heart rate 95 [place] interval 134 QT duration 425 axis 55. Patient has PACs. Patient has Q waves in anterior leads and nonspecific ST and T changes throughout compared to 03/07/2021 no change impression no acute injury is indicated here Course - Re-Assessments/Exams Free Text/Narrative Re-Assessment/Exam: 05/24/21 17:32 Patient has slightly elevated troponin but also has renal insufficiency. She does not feel like the pain is the same as her heart attack. She is already on Eliquis. Plan to recheck troponin 90 minutes after arrival. 05/24/21 17:33 Departure - Departure Disposition: DC/Tfer to Acute Hospital 02 Clinical Impression: Acute coronary syndrome, Non-STEMI (non-ST elevated myocardial infarction) - Discharge Information <Agnel Kilpatrick - Last Filed: 05/24/21 20:58> ED HPI GENERAL MEDICAL PROBLEM - History of Present Illness INITIAL COMMENTS - FREE TEXT/NARRATIVE: 8:56 PM: Signout received at [address] Maynard. Patient's troponin is slightly elevated from her initial troponin on presentation. Patient does have significant cardiac risk factors with multiple stents and bypass surgery. Patient is currently on Eliquis and Plavix. Patient is not experiencing any r ecent fevers, shakes, chills, nausea, vomiting, cough, URI symptoms. Patient's Covid test is positive however she was diagnosed with Covid on March 07 and received Regeneron here in [place]. Patient does not have active symptoms consistent with coronavirus infection. Given her elevation in her troponin and her risk factors, patient will be transferred to [facility]. I have discussed the case with Dr. Leonard in the emergency department at [facility]. Patient currently is clinically hemodynamically stable for transfer. ED ROS GENERAL - Review of Systems Review Of Systems: See Below ED EXAM, GENERAL - Physical Exam Exam: See Below Course - Vital Signs Last Recorded V/S: Last Vital Signs Temp 97.0 F 05/24/21 16:28 Pulse 109 H 05/24/21 20:28 Resp 13 05/24/21 20:28 BP 131/84 05/24/21 20:28 Pulse Ox 90 L 05/24/21 20:28 - Orders/Labs/Meds Orders: Active Orders 24 hr Category Date Time Status Sodium Chloride 0.9% [Saline Flush] Med 05/24/21 16:41 Active 10 ml FLUSH ASDIRECTED PRN Sodium Chloride 0.9% [Saline Flush] Med 05/24/21 16:41 Active 2.5 ml FLUSH ASDIRECTED PRN Saline Lock Insert [OM.PC] Stat Oth 05/24/21 16:41 Ordered Medication Orders Sodium Chloride (Sodium Chloride 0.9% 10 Ml Syringe) 10 ml FLUSH ASDIRECTED PRN PRN Reason: Keep Vein Open Last Admin: 05/24/21 17:43 Dose: 10 ml Documented by: JAYDEN Sodium Chloride (Sodium Chloride 0.9% 2.5 Ml Syringe) 2.5 ml FLUSH ASDIRECTED PRN PRN Reason: Keep Vein Open Last Admin: 05/24/21 17:43 Dose: 2.5 ml Documented by: JAYDEN Labs: Laboratory Tests 05/24/21 05/24/21 05/24/21 Range/Units 16:49 16:49 18:27 WBC 10.94 (4.0-11.0) K/uL RBC 3.43 L (4.30-5.90) M/uL Hgb 9.9 L (12.0-16.0) g/dL Hct 31.3 L (36.0-46.0) % MCV 91.3 (80.0-98.0) fL MCH 28.9 (27.0-32.0) pg MCHC 31.6 (31.0-37.0) g/dL RDW Std Deviation 50.7 (28.0-62.0) fl RDW Coeff of Aranza 15 (11.0-15.0) % Plt Count 228 (150-400) K/uL MPV 9.30 (7.40-12.00) fL Neut % (Auto) 46.6 L (48.0-80.0) % Lymph % (Auto) 43.5 H (16.0-40.0) % [place] % (Auto) 9.2 (0.0-15.0) % Eos % (Auto) 0.5 (0.0-7.0) % Baso % (Auto) 0.2 (0.0-1.5) % Neut # (Auto) 5.1 (1.4-5.7) K/uL Lymph # (Auto) 4.8 H (0.6-2.4) K/uL [place] # (Auto) 1.0 H (0.0-0.8) K/uL Eos # (Auto) 0.1 (0.0-0.7) K/uL Baso # (Auto) 0.0 (0.0-0.1) K/uL Nucleated RBC % 0.0 /100WBC Nucleated RBCs # 0 K/uL Sodium 143 (136-145) mmol/L Potassium 3.9 (3.5-5.1) mmol/L Chloride 108 H (98-107) mmol/L Carbon Dioxide 26.8 (21.0-32.0) mmol/L BUN 29 H (7.0-18.0) mg/dL Creatinine 1.4 H (0.6-1.0) mg/dL Est Cr Clr Drug Dosing TNP Estimated GFR (MDRD) 37.3 ml/min Glucose 105 (74-106) mg/dL Calcium 7.4 L (8.5-10.1) mg/dL Magnesium 1.8 (1.8-2.4) mg/dL Total Bilirubin 0.3 (0.2-1.0) mg/dL AST 20 (15-37) IU/L ALT 26 (14-63) IU/L Alkaline Phosphatase 89 (46-116) U/L Troponin I 0.065 H* 0.082 H* (0.000-0.056) ng/mL Total Protein 4.7 L (6.4-8.2) g/dL Albumin 2.0 L (3.4-5.0) g/dL Globulin 2.7 (2.6-4.0) g/dL Albumin/Globulin Ratio 0.7 L (0.9-1.6) SARS-CoV-2 RNA (VERO) (NEGATIVE) 05/24/21 Range/Units 19:23 WBC (4.0-11.0) K/uL RBC (4.30-5.90) M/uL Hgb (12.0-16.0) g/dL Hct (36.0-46.0) % MCV (80.0-98.0) fL MCH (27.0-32.0) pg MCHC (31.0-37.0) g/dL RDW Std Deviation (28.0-62.0) fl RDW Coeff of Aranza (11.0-15.0) % Plt Count (150-400) K/uL MPV (7.40-12.00) fL Neut % (Auto) (48.0-80.0) % Lymph % (Auto) (16.0-40.0) % [place] % (Auto) (0.0-15.0) % Eos % (Auto) (0.0-7.0) % Baso % (Auto) (0.0-1.5) % Neut # (Auto) (1.4-5.7) K/uL Lymph # (Auto) (0.6-2.4) K/uL [place] # (Auto) (0.0-0.8) K/uL Eos # (Auto) (0.0-0.7) K/uL Baso # (Auto) (0.0-0.1) K/uL Nucleated RBC % /100WBC Nucleated RBCs # K/uL Sodium (136-145) mmol/L Potassium (3.5-5.1) mmol/L Chloride (98-107) mmol/L Carbon Dioxide (21.0-32.0) mmol/L BUN (7.0-18.0) mg/dL Creatinine (0.6-1.0) mg/dL Est Cr Clr Drug Dosing Estimated GFR (MDRD) ml/min Glucose (74-106) mg/dL Calcium (8.5-10.1) mg/dL Magnesium (1.8-2.4) mg/dL Total Bilirubin (0.2-1.0) mg/dL AST (15-37) IU/L ALT (14-63) IU/L Alkaline Phosphatase (46-116) U/L Troponin I (0.000-0.056) ng/mL Total Protein (6.4-8.2) g/dL Albumin (3.4-5.0) g/dL Globulin (2.6-4.0) g/dL Albumin/Globulin Ratio (0.9-1.6) SARS-CoV-2 RNA (VERO) POSITIVE H (NEGATIVE) Meds: Medications Generic Name Dose Route Start Last Admin Trade Name Freq PRN Reason Stop Dose Admin Sodium Chloride 10 ml 05/24/21 16:41 05/24/21 17:43 Sodium Chloride 0.9% 10 Ml Syringe FLUSH 10 ml ASDIRECTED PRN Administration Keep Vein Open Sodium Chloride 2.5 ml 05/24/21 16:41 05/24/21 17:43 Sodium Chloride 0.9% 2.5 Ml Syringe FLUSH 2.5 ml ASDIRECTED PRN Administration Keep Vein Open Discontinued Medications Generic Name Dose Route Start Last Admin Trade Name Freq PRN Reason Stop Dose Admin Lorazepam 1 mg 05/24/21 19:12 05/24/21 19:26 Lorazepam 2 Mg/Ml Sdv IVPUSH 05/24/21 19:13 1 mg ONETIME ONE Administration Morphine Sulfate 4 mg 05/24/21 17:31 05/24/21 17:43 Morphine 4 Mg/Ml Vial IVPUSH 05/24/21 17:32 4 mg ONETIME ONE Administration Ondansetron HCl 4 mg 05/24/21 17:31 05/24/21 17:42 Ondansetron 4 Mg/2 Ml Sdv IVPUSH 05/24/21 17:32 4 mg ONETIME ONE Administration Departure - Departure Time of Disposition: 20:58 Condition: Good Sepsis Event Note (ED) - Focused Exam Vital Signs: Vital Signs Temp Pulse Resp BP Pulse Ox 05/24/21 20:28 109 H 13 131/84 90 L 05/24/21 18:10 97 17 154/86 H 92 L 05/24/21 16:28 97.0 F 104 H 20 173/96 H
--- NOTE | 2021-05-24 17:14 | CR ---
INDICATION: Chest pain. COMPARISON: Portable AP chest radiograph March 07, 2021. TECHNIQUE: Portable AP chest. FINDINGS: Normal size cardiac silhouette. Status post median sternotomy. Port-A-Cath in place. No acute pneumonic infiltrates identified. No pneumothorax or pleural effusion. IMPRESSION: 1. No acute pathology. 2. No interval change. Dictated by Rosette Adkins MD @ 05/24/2021 5:12:17 PM (Electronically Signed)
[2021-05-24 17:21] LABS: BLOOD UREA NITROGEN,BUN 29 mg/dL (7.0-18.0); CARBON DIOXIDE,CO2 26.8 mmol/L (21.0-32.0); CHLORIDE,CL 108 mmol/L (98-107); GLUCOSE RANDOM 105 mg/dL (74-106); POTASSIUM,K 3.9 mmol/L (3.5-5.1); SODIUM,NA 143 mmol/L (136-145)
[2021-05-24] MEDS ORDERED: Morphine 4 MG/ML VIAL IVPUSH ONE ×2 (17:31→22:16)
[2021-05-24] MEDS ORDERED: Ondansetron 4 MG/2 ML SDV IVPUSH ONE (17:31)
[2021-05-24] MEDS ORDERED: LORazepam 2 MG/ML SDV IVPUSH ONE (19:12)
[2021-05-24 21:32] VITALS: BP 129/84; PULSE 110
== END 2021-05-24 23:57 ==
LOC: MW.ED 16:28
DX: I21.4 Non-ST elevation (NSTEMI) myocardial infarction (principal); I24.9 Acute ischemic heart disease, unspecified; E78.00 Pure hypercholesterolemia, unspecified; I10 Essential (primary) hypertension; I25.2 Old myocardial infarction; Z95.1 Presence of aortocoronary bypass graft; Z88.0 Allergy status to penicillin; Z91.048 Other nonmedicinal substance allergy status; Z88.8 Allergy status to other drugs, medicaments and biological substances; Z79.02 Long term (current) use of antithrombotics/antiplatelets; Z86.73 Personal history of transient ischemic attack (TIA), and cerebral infarction without residual deficits; Z79.4 Long term (current) use of insulin; Z79.899 Other long term (current) drug therapy; Z20.822 Contact with and (suspected) exposure to COVID-19
CPT/HCPCS: 36415; 71045; 80053; 83735; 84484; 85025; 93005; 96374; 96375; 96376; 99285; J2060; J2270; J2405; U0002

== ENCOUNTER 2021-08-23 09:14 | Inpatient (IN) | payer MEDICARE, OTHER ==
[2021-08-23] MEDS ORDERED: Sodium Chloride 0.9% 10 ML Syringe FLUSH PRN (09:28)
[2021-08-23] MEDS ORDERED: Lactated Ringers 1,000 ML IV ONE (09:28)
[2021-08-23] MEDS ORDERED: Sodium Chloride 0.9% 2.5 ML Syringe FLUSH PRN (09:28)
[2021-08-23 10:19] LABS: BLOOD UREA NITROGEN,BUN 35 mg/dL (7.0-18.0); CARBON DIOXIDE,CO2 29.3 mmol/L (21.0-32.0); CHLORIDE,CL 107 mmol/L (98-107); GLUCOSE RANDOM 82 mg/dL (74-106); SODIUM,NA 139 mmol/L (136-145)
[2021-08-23] MEDS ORDERED: Magnesium Sulfate/Water 2 GM in Premix Bag 1 BAG IV ONE (10:47)
[2021-08-23 11:04] LABS: CORONAVIRUS COVID-19 NAA NEGATIVE (NEGATIVE); INFLUENZA A NAA NEGATIVE (NEGATIVE); INFLUENZA B NAA NEGATIVE (NEGATIVE)
[2021-08-23] MEDS ORDERED: cefTRIAXone 2 GM in Sodium Chloride 0.9% 100 ML IV ONE (12:08)
[2021-08-23] MEDS ORDERED: cefTRIAXone 2 GM in Premix Bag 1 BAG IV ONE (12:29)
[2021-08-23] MEDS ORDERED: Glucagon,Human Recombinant 1 MG Vial IM PRN (15:01)
[2021-08-23] MEDS ORDERED: 50% Dextrose in Water 50 ML Syringe IVPUSH PRN (15:01)
[2021-08-23] MEDS ORDERED: cefTRIAXone 1 GM in Sodium Chloride 0.9% 50 ML IV SCH (15:15)
[2021-08-23] MEDS: Enoxaparin 40 MG/0.4 ML Syringe SUBCUT SCH (18:17)
[2021-08-23] MEDS: Insulin Aspart 100 Units/ML 3 ML Pen SUBCUT SCH ×2 (18:18)
[2021-08-23] MEDS: atorvaSTATin 40 MG Tab PO SCH (21:16)
[2021-08-23] MEDS: Amitriptyline 10 MG Tab PO SCH (21:16)
[2021-08-23] MEDS: Acetaminophen 325 MG Tab PO PRN (21:21)
[2021-08-23] MEDS: Insulin Glargine,Human Rec. Analog 100 Units/ML 3 ML Pen SUBCUT SCH (21:26)
[2021-08-24 06:42] LABS: CARBON DIOXIDE,CO2 28.1 mmol/L (21.0-32.0); POTASSIUM,K 3.9 mmol/L (3.5-5.1)
[2021-08-24] MEDS: Levothyroxine 50 MCG Tab PO SCH (06:43)
[2021-08-24] MEDS: Insulin Aspart 100 Units/ML 3 ML Pen SUBCUT SCH ×6 (10:08→18:19)
[2021-08-24] MEDS: Clopidogrel 75 MG Tab PO SCH (10:10)
[2021-08-24] MEDS: Acetaminophen 325 MG Tab PO PRN ×2 (10:10→20:26)
[2021-08-24] MEDS: cefTRIAXone 1 GM in Sodium Chloride 0.9% 50 ML IV SCH (13:07)
[2021-08-24] MEDS: Enoxaparin 40 MG/0.4 ML Syringe SUBCUT SCH (16:45)
[2021-08-24] MEDS: Amitriptyline 10 MG Tab PO SCH (20:24)
[2021-08-24] MEDS: atorvaSTATin 40 MG Tab PO SCH (20:25)
[2021-08-24] MEDS: Insulin Glargine,Human Rec. Analog 100 Units/ML 3 ML Pen SUBCUT SCH (20:34)
[2021-08-25] MEDS: Insulin Aspart 100 Units/ML 3 ML Pen SUBCUT SCH ×6 (08:15→18:46)
[2021-08-25] MEDS: Levothyroxine 50 MCG Tab PO SCH (08:16)
[2021-08-25] MEDS: Clopidogrel 75 MG Tab PO SCH (08:16)
[2021-08-25] MEDS: cefTRIAXone 1 GM in Sodium Chloride 0.9% 50 ML IV SCH (12:42)
[2021-08-25] MEDS: Enoxaparin 40 MG/0.4 ML Syringe SUBCUT SCH (15:45)
[2021-08-25] MEDS ORDERED: LORazepam 1 MG Tab PO ONE (18:07)
[2021-08-25] MEDS: Ondansetron 4 MG/2 ML SDV IVPUSH PRN (18:17)
[2021-08-25 19:24] LABS: CARBON DIOXIDE,CO2 26.4 mmol/L (21.0-32.0); POTASSIUM,K 4.4 mmol/L (3.5-5.1)
[2021-08-25] MEDS: Insulin Glargine,Human Rec. Analog 100 Units/ML 3 ML Pen SUBCUT SCH (21:34)
[2021-08-25] MEDS: atorvaSTATin 40 MG Tab PO SCH (21:34)
[2021-08-25] MEDS: Amitriptyline 10 MG Tab PO SCH (21:34)
[2021-08-26] MEDS ORDERED: LORazepam 0.5 MG Tab PO PRN (05:30)
[2021-08-26 06:35] LABS: CARBON DIOXIDE,CO2 28.3 mmol/L (21.0-32.0); POTASSIUM,K 4.2 mmol/L (3.5-5.1)
[2021-08-26] MEDS ORDERED: Gadobenate Dimeglumine 529 MG/ML 20 ML SDV IVPUSH STA (07:18)
[2021-08-26] MEDS ORDERED: Metoprolol Succinate 25 MG Tab.ER PO SCH (09:00)
[2021-08-26] MEDS: Insulin Aspart 100 Units/ML 3 ML Pen SUBCUT SCH ×6 (09:28→18:07)
[2021-08-26] MEDS: Metoprolol Succinate 25 MG Tab.ER PO SCH ×2 (10:29→20:41)
[2021-08-26] MEDS: Midodrine 5 MG Tab PO SCH ×2 (11:30→20:42)
[2021-08-26] MEDS: Apixaban 5 MG Tab PO SCH ×2 (11:30→20:42)
[2021-08-26] MEDS: Clopidogrel 75 MG Tab PO SCH (11:30)
[2021-08-26] MEDS: Levothyroxine 50 MCG Tab PO SCH (11:30)
[2021-08-26] MEDS: DULoxetine 60 MG Cap PO SCH (11:30)
[2021-08-26] MEDS: buPROPion 150 MG Tab.ER PO SCH (11:30)
[2021-08-26] MEDS: cefTRIAXone 1 GM in Sodium Chloride 0.9% 50 ML IV SCH (12:47)
[2021-08-26] MEDS: atorvaSTATin 40 MG Tab PO SCH (20:41)
[2021-08-26] MEDS: Famotidine 20 MG Tab PO SCH (20:41)
[2021-08-26] MEDS: Amitriptyline 10 MG Tab PO SCH (20:42)
[2021-08-26] MEDS: Insulin Glargine,Human Rec. Analog 100 Units/ML 3 ML Pen SUBCUT SCH (20:44)
[2021-08-27 06:14] LABS: CARBON DIOXIDE,CO2 30.7 mmol/L (21.0-32.0); POTASSIUM,K 4.3 mmol/L (3.5-5.1)
[2021-08-27] MEDS: Levothyroxine 50 MCG Tab PO SCH (06:39)
[2021-08-27] MEDS: Insulin Aspart 100 Units/ML 3 ML Pen SUBCUT SCH ×6 (08:52→17:48)
[2021-08-27] MEDS: Metoprolol Succinate 25 MG Tab.ER PO SCH ×2 (08:55→21:19)
[2021-08-27] MEDS: DULoxetine 60 MG Cap PO SCH (08:59)
[2021-08-27] MEDS: Midodrine 5 MG Tab PO SCH ×2 (08:59→21:19)
[2021-08-27] MEDS: Apixaban 5 MG Tab PO SCH ×2 (08:59→21:19)
[2021-08-27] MEDS: buPROPion 150 MG Tab.ER PO SCH (08:59)
[2021-08-27] MEDS: Clopidogrel 75 MG Tab PO SCH (08:59)
[2021-08-27] MEDS: Acetaminophen 325 MG Tab PO PRN ×2 (09:29→22:23)
[2021-08-27] MEDS: Cephalexin 500 MG Cap PO SCH ×2 (10:39→21:22)
[2021-08-27] MEDS: Famotidine 20 MG Tab PO SCH (21:19)
[2021-08-27] MEDS: Amitriptyline 10 MG Tab PO SCH (21:20)
[2021-08-27] MEDS: atorvaSTATin 40 MG Tab PO SCH (21:22)
[2021-08-27] MEDS: Insulin Glargine,Human Rec. Analog 100 Units/ML 3 ML Pen SUBCUT SCH (21:26)
[2021-08-28 05:56] LABS: CARBON DIOXIDE,CO2 29.6 mmol/L (21.0-32.0); POTASSIUM,K 3.9 mmol/L (3.5-5.1)
[2021-08-28] MEDS: Levothyroxine 50 MCG Tab PO SCH (06:49)
[2021-08-28] MEDS: Insulin Aspart 100 Units/ML 3 ML Pen SUBCUT SCH ×6 (09:14→17:52)
[2021-08-28] MEDS: Cephalexin 500 MG Cap PO SCH ×2 (09:18→21:06)
[2021-08-28] MEDS: Clopidogrel 75 MG Tab PO SCH (09:18)
[2021-08-28] MEDS: DULoxetine 60 MG Cap PO SCH (09:18)
[2021-08-28] MEDS: Apixaban 5 MG Tab PO SCH ×2 (09:18→21:06)
[2021-08-28] MEDS: buPROPion 150 MG Tab.ER PO SCH (09:19)
[2021-08-28] MEDS: Metoprolol Succinate 25 MG Tab.ER PO SCH ×2 (09:21→21:05)
[2021-08-28] MEDS: Midodrine 5 MG Tab PO SCH ×2 (09:21→21:04)
[2021-08-28] MEDS: Amitriptyline 10 MG Tab PO SCH (21:03)
[2021-08-28] MEDS: atorvaSTATin 40 MG Tab PO SCH (21:03)
[2021-08-28] MEDS: Famotidine 20 MG Tab PO SCH (21:05)
[2021-08-28] MEDS: Acetaminophen 325 MG Tab PO PRN (21:06)
[2021-08-28] MEDS: Insulin Glargine,Human Rec. Analog 100 Units/ML 3 ML Pen SUBCUT SCH (21:12)
[2021-08-29] MEDS: Levothyroxine 50 MCG Tab PO SCH (06:31)
[2021-08-29] MEDS: DULoxetine 60 MG Cap PO SCH (09:38)
[2021-08-29] MEDS: buPROPion 150 MG Tab.ER PO SCH (09:39)
[2021-08-29] MEDS: Midodrine 5 MG Tab PO SCH ×2 (09:39→20:44)
[2021-08-29] MEDS: Cephalexin 500 MG Cap PO SCH ×2 (09:39→20:45)
[2021-08-29] MEDS: Apixaban 5 MG Tab PO SCH ×2 (09:39→20:45)
[2021-08-29] MEDS: Clopidogrel 75 MG Tab PO SCH (09:39)
[2021-08-29] MEDS: Metoprolol Succinate 25 MG Tab.ER PO SCH ×2 (09:40→20:45)
[2021-08-29] MEDS: Insulin Aspart 100 Units/ML 3 ML Pen SUBCUT SCH ×6 (09:40→17:52)
[2021-08-29] MEDS: atorvaSTATin 40 MG Tab PO SCH (20:44)
[2021-08-29] MEDS: Amitriptyline 10 MG Tab PO SCH (20:45)
[2021-08-29] MEDS: Famotidine 20 MG Tab PO SCH (20:45)
[2021-08-29] MEDS: Insulin Glargine,Human Rec. Analog 100 Units/ML 3 ML Pen SUBCUT SCH (20:45)
[2021-08-29] MEDS: Acetaminophen 325 MG Tab PO PRN (20:51)
[2021-08-30] MEDS: Levothyroxine 50 MCG Tab PO SCH (06:39)
[2021-08-30 07:33] LABS: CARBON DIOXIDE,CO2 27.4 mmol/L (21.0-32.0); POTASSIUM,K 3.9 mmol/L (3.5-5.1)
[2021-08-30] MEDS: buPROPion 150 MG Tab.ER PO SCH (09:28)
[2021-08-30] MEDS: DULoxetine 60 MG Cap PO SCH (09:28)
[2021-08-30] MEDS: Clopidogrel 75 MG Tab PO SCH (09:28)
[2021-08-30] MEDS: Midodrine 5 MG Tab PO SCH ×2 (09:28→21:39)
[2021-08-30] MEDS: Apixaban 5 MG Tab PO SCH ×2 (09:28→21:40)
[2021-08-30] MEDS: Insulin Aspart 100 Units/ML 3 ML Pen SUBCUT SCH ×6 (09:29→18:16)
[2021-08-30] MEDS: Metoprolol Succinate 25 MG Tab.ER PO SCH ×2 (09:48→21:40)
[2021-08-30] MEDS: atorvaSTATin 40 MG Tab PO SCH (21:39)
[2021-08-30] MEDS: Famotidine 20 MG Tab PO SCH (21:39)
[2021-08-30] MEDS: Amitriptyline 10 MG Tab PO SCH (21:40)
[2021-08-30] MEDS: Insulin Glargine,Human Rec. Analog 100 Units/ML 3 ML Pen SUBCUT SCH (21:41)
[2021-08-31] MEDS: Levothyroxine 50 MCG Tab PO SCH (08:14)
[2021-08-31] MEDS: Insulin Aspart 100 Units/ML 3 ML Pen SUBCUT SCH ×6 (08:14→18:22)
[2021-08-31] MEDS: DULoxetine 60 MG Cap PO SCH (08:15)
[2021-08-31] MEDS: buPROPion 150 MG Tab.ER PO SCH (08:16)
[2021-08-31] MEDS: Metoprolol Succinate 25 MG Tab.ER PO SCH ×2 (08:17→20:53)
[2021-08-31] MEDS: Clopidogrel 75 MG Tab PO SCH (08:17)
[2021-08-31] MEDS: Apixaban 5 MG Tab PO SCH ×2 (08:18→20:53)
[2021-08-31] MEDS: Midodrine 5 MG Tab PO SCH ×2 (08:18→20:53)
[2021-08-31] MEDS: Ondansetron 4 MG/2 ML SDV IVPUSH PRN ×2 (11:12→17:57)
[2021-08-31 14:44] LABS: CARBON DIOXIDE,CO2 28.2 mmol/L (21.0-32.0); POTASSIUM,K 4.2 mmol/L (3.5-5.1)
[2021-08-31] MEDS ORDERED: Bisacodyl 10 MG Supp RECTAL ONE (14:45)
[2021-08-31] MEDS: Acetaminophen 325 MG Tab PO PRN ×2 (15:33→23:39)
[2021-08-31] MEDS ORDERED: Morphine 2 MG/ML SYRINGE IVPUSH ONE (19:21)
[2021-08-31] MEDS: Famotidine 20 MG Tab PO SCH (20:53)
[2021-08-31] MEDS: atorvaSTATin 40 MG Tab PO SCH (20:53)
[2021-08-31] MEDS: Amitriptyline 10 MG Tab PO SCH (20:54)
[2021-08-31] MEDS: Insulin Glargine,Human Rec. Analog 100 Units/ML 3 ML Pen SUBCUT SCH (20:54)
[2021-08-31] MEDS ORDERED: Morphine 2 MG/ML SYRINGE IVPUSH PRN (23:04)
[2021-09-01] MEDS: Levothyroxine 50 MCG Tab PO SCH (06:30)
[2021-09-01 06:37] LABS: CARBON DIOXIDE,CO2 26.3 mmol/L (21.0-32.0); POTASSIUM,K 4.2 mmol/L (3.5-5.1)
[2021-09-01] MEDS: Insulin Aspart 100 Units/ML 3 ML Pen SUBCUT SCH ×6 (09:52→18:08)
[2021-09-01] MEDS: DULoxetine 60 MG Cap PO SCH (09:59)
[2021-09-01] MEDS: Midodrine 5 MG Tab PO SCH ×2 (09:59→21:05)
[2021-09-01] MEDS: Clopidogrel 75 MG Tab PO SCH (09:59)
[2021-09-01] MEDS: Metoprolol Succinate 25 MG Tab.ER PO SCH ×2 (10:00→21:05)
[2021-09-01] MEDS: Apixaban 5 MG Tab PO SCH ×2 (10:00→21:04)
[2021-09-01] MEDS: buPROPion 150 MG Tab.ER PO SCH (10:00)
[2021-09-01] MEDS: Acetaminophen 325 MG Tab PO PRN ×2 (10:01→18:15)
[2021-09-01] MEDS: Famotidine 20 MG Tab PO SCH (21:04)
[2021-09-01] MEDS: Amitriptyline 10 MG Tab PO SCH (21:04)
[2021-09-01] MEDS: atorvaSTATin 40 MG Tab PO SCH (21:05)
[2021-09-01] MEDS: Insulin Glargine,Human Rec. Analog 100 Units/ML 3 ML Pen SUBCUT SCH (21:06)
[2021-09-02 06:29] LABS: CARBON DIOXIDE,CO2 28.9 mmol/L (21.0-32.0); POTASSIUM,K 3.6 mmol/L (3.5-5.1)
[2021-09-02] MEDS: Levothyroxine 50 MCG Tab PO SCH (07:47)
[2021-09-02] MEDS: Insulin Aspart 100 Units/ML 3 ML Pen SUBCUT SCH ×6 (07:54→18:17)
[2021-09-02] MEDS: DULoxetine 60 MG Cap PO SCH (09:20)
[2021-09-02] MEDS: Apixaban 5 MG Tab PO SCH ×2 (09:20→20:41)
[2021-09-02] MEDS: Midodrine 5 MG Tab PO SCH ×2 (09:20→20:41)
[2021-09-02] MEDS: buPROPion 150 MG Tab.ER PO SCH (09:20)
[2021-09-02] MEDS: Clopidogrel 75 MG Tab PO SCH (09:21)
[2021-09-02] MEDS: Metoprolol Succinate 25 MG Tab.ER PO SCH ×2 (09:21→20:41)
[2021-09-02] MEDS ORDERED: Witch Hazel Medicated Pads 40/Jar TOP PRN (10:07)
[2021-09-02] MEDS ORDERED: Fluconazole 150 MG Tab PO ONE (12:00)
[2021-09-02] MEDS ORDERED: InFLIXimab (Remicade) 100 MG Vial IV ONE (12:00)
[2021-09-02] MEDS ORDERED: Cetirizine 10 MG Tab PO ONE (12:10)
[2021-09-02] MEDS: Docusate Sodium 100 MG Cap PO SCH ×2 (12:57→20:41)
[2021-09-02] MEDS: Polyethylene Glycol 3350 Powder 17 GM Packet PO SCH (12:58)
[2021-09-02] MEDS: Acetaminophen 325 MG Tab PO PRN ×2 (13:10→20:42)
[2021-09-02] MEDS ORDERED: Ketorolac 30 MG/ML SDV IVPUSH PRN (14:30)
[2021-09-02] MEDS: cefTRIAXone 1 GM in Sodium Chloride 0.9% 50 ML IV SCH (16:01)
[2021-09-02] MEDS: Famotidine 20 MG Tab PO SCH (20:41)
[2021-09-02] MEDS: Amitriptyline 10 MG Tab PO SCH (20:41)
[2021-09-02] MEDS: atorvaSTATin 40 MG Tab PO SCH (20:42)
[2021-09-02] MEDS: Insulin Glargine,Human Rec. Analog 100 Units/ML 3 ML Pen SUBCUT SCH (20:54)
[2021-09-03 06:37] LABS: CARBON DIOXIDE,CO2 28.3 mmol/L (21.0-32.0)
[2021-09-03] MEDS: Levothyroxine 50 MCG Tab PO SCH (06:43)
[2021-09-03] MEDS: Insulin Aspart 100 Units/ML 3 ML Pen SUBCUT SCH ×6 (09:46→17:59)
[2021-09-03] MEDS: Polyethylene Glycol 3350 Powder 17 GM Packet PO SCH (09:48)
[2021-09-03] MEDS: buPROPion 150 MG Tab.ER PO SCH (09:49)
[2021-09-03] MEDS: Docusate Sodium 100 MG Cap PO SCH ×2 (09:50→20:47)
[2021-09-03] MEDS: Clopidogrel 75 MG Tab PO SCH (09:50)
[2021-09-03] MEDS: Midodrine 5 MG Tab PO SCH ×2 (09:51→20:47)
[2021-09-03] MEDS: DULoxetine 60 MG Cap PO SCH (09:51)
[2021-09-03] MEDS: Apixaban 5 MG Tab PO SCH ×2 (09:51→20:47)
[2021-09-03] MEDS ORDERED: Bisacodyl 10 MG Supp RECTAL PRN (09:52)
[2021-09-03] MEDS: Metoprolol Succinate 25 MG Tab.ER PO SCH (09:58)
[2021-09-03] MEDS: cefTRIAXone 1 GM in Sodium Chloride 0.9% 50 ML IV SCH (13:32)
[2021-09-03] MEDS: Famotidine 20 MG Tab PO SCH (20:47)
[2021-09-03] MEDS: atorvaSTATin 40 MG Tab PO SCH (20:47)
[2021-09-03] MEDS: Amitriptyline 10 MG Tab PO SCH (20:48)
[2021-09-03] MEDS: Acetaminophen 325 MG Tab PO PRN (20:49)
[2021-09-03] MEDS: Insulin Glargine,Human Rec. Analog 100 Units/ML 3 ML Pen SUBCUT SCH (20:51)
[2021-09-04 06:26] LABS: CARBON DIOXIDE,CO2 28.1 mmol/L (21.0-32.0); POTASSIUM,K 4.3 mmol/L (3.5-5.1)
[2021-09-04] MEDS: Levothyroxine 50 MCG Tab PO SCH (06:48)
[2021-09-04] MEDS: Insulin Aspart 100 Units/ML 3 ML Pen SUBCUT SCH ×6 (09:41→17:57)
[2021-09-04] MEDS: Docusate Sodium 100 MG Cap PO SCH ×2 (09:42→21:09)
[2021-09-04] MEDS: Metoprolol Succinate 25 MG Tab.ER PO SCH (09:42)
[2021-09-04] MEDS: Clopidogrel 75 MG Tab PO SCH (09:43)
[2021-09-04] MEDS: Midodrine 5 MG Tab PO SCH ×2 (09:43→21:09)
[2021-09-04] MEDS: buPROPion 150 MG Tab.ER PO SCH (09:43)
[2021-09-04] MEDS: Polyethylene Glycol 3350 Powder 17 GM Packet PO SCH (09:43)
[2021-09-04] MEDS: Apixaban 5 MG Tab PO SCH ×2 (09:43→21:09)
[2021-09-04] MEDS: DULoxetine 60 MG Cap PO SCH (09:43)
[2021-09-04] MEDS: cefTRIAXone 1 GM in Sodium Chloride 0.9% 50 ML IV SCH (14:32)
[2021-09-04] MEDS: Amitriptyline 10 MG Tab PO SCH (21:08)
[2021-09-04] MEDS: Famotidine 20 MG Tab PO SCH (21:09)
[2021-09-04] MEDS: atorvaSTATin 40 MG Tab PO SCH (21:09)
[2021-09-04] MEDS: Insulin Glargine,Human Rec. Analog 100 Units/ML 3 ML Pen SUBCUT SCH (21:09)
[2021-09-05] MEDS: Acetaminophen 325 MG Tab PO PRN ×2 (00:05→22:52)
[2021-09-05 06:18] LABS: CARBON DIOXIDE,CO2 29.2 mmol/L (21.0-32.0); POTASSIUM,K 4.4 mmol/L (3.5-5.1)
[2021-09-05] MEDS: Levothyroxine 50 MCG Tab PO SCH (06:38)
[2021-09-05] MEDS: Insulin Aspart 100 Units/ML 3 ML Pen SUBCUT SCH ×6 (09:28→18:05)
[2021-09-05] MEDS: DULoxetine 60 MG Cap PO SCH (09:33)
[2021-09-05] MEDS: Apixaban 5 MG Tab PO SCH ×2 (09:33→20:56)
[2021-09-05] MEDS: Docusate Sodium 100 MG Cap PO SCH ×2 (09:33→20:56)
[2021-09-05] MEDS: Clopidogrel 75 MG Tab PO SCH (09:33)
[2021-09-05] MEDS: Metoprolol Succinate 25 MG Tab.ER PO SCH (09:34)
[2021-09-05] MEDS: Midodrine 5 MG Tab PO SCH ×2 (09:34→20:56)
[2021-09-05] MEDS: Polyethylene Glycol 3350 Powder 17 GM Packet PO SCH (09:34)
[2021-09-05] MEDS: buPROPion 150 MG Tab.ER PO SCH (09:34)
[2021-09-05] MEDS: cefTRIAXone 1 GM in Sodium Chloride 0.9% 50 ML IV SCH (14:17)
[2021-09-05] MEDS: Insulin Glargine,Human Rec. Analog 100 Units/ML 3 ML Pen SUBCUT SCH (20:55)
[2021-09-05] MEDS: Famotidine 20 MG Tab PO SCH (20:56)
[2021-09-05] MEDS: Amitriptyline 10 MG Tab PO SCH (20:56)
[2021-09-05] MEDS: atorvaSTATin 40 MG Tab PO SCH (20:56)
[2021-09-06 06:23] LABS: CARBON DIOXIDE,CO2 29.2 mmol/L (21.0-32.0); POTASSIUM,K 4.2 mmol/L (3.5-5.1)
[2021-09-06] MEDS: Levothyroxine 50 MCG Tab PO SCH (06:35)
[2021-09-06] MEDS: Apixaban 5 MG Tab PO SCH ×2 (08:09→20:09)
[2021-09-06] MEDS: Clopidogrel 75 MG Tab PO SCH (08:09)
[2021-09-06] MEDS: Metoprolol Succinate 25 MG Tab.ER PO SCH (08:09)
[2021-09-06] MEDS: DULoxetine 60 MG Cap PO SCH (08:11)
[2021-09-06] MEDS: Polyethylene Glycol 3350 Powder 17 GM Packet PO SCH (08:11)
[2021-09-06] MEDS: buPROPion 150 MG Tab.ER PO SCH (08:11)
[2021-09-06] MEDS: Midodrine 5 MG Tab PO SCH ×2 (08:11→20:09)
[2021-09-06] MEDS: Docusate Sodium 100 MG Cap PO SCH ×2 (08:11→20:09)
[2021-09-06] MEDS: Insulin Aspart 100 Units/ML 3 ML Pen SUBCUT SCH ×6 (08:36→17:32)
[2021-09-06] MEDS: cefTRIAXone 1 GM in Sodium Chloride 0.9% 50 ML IV SCH (15:04)
[2021-09-06] MEDS: atorvaSTATin 40 MG Tab PO SCH (20:09)
[2021-09-06] MEDS: Amitriptyline 10 MG Tab PO SCH (20:10)
[2021-09-06] MEDS: Famotidine 20 MG Tab PO SCH (20:10)
[2021-09-06] MEDS: Acetaminophen 325 MG Tab PO PRN (20:10)
[2021-09-06] MEDS: Insulin Glargine,Human Rec. Analog 100 Units/ML 3 ML Pen SUBCUT SCH (20:10)
[2021-09-07] MEDS: Levothyroxine 50 MCG Tab PO SCH (06:39)
[2021-09-07] MEDS: Metoprolol Succinate 25 MG Tab.ER PO SCH (08:25)
[2021-09-07] MEDS: buPROPion 150 MG Tab.ER PO SCH (08:25)
[2021-09-07] MEDS: Apixaban 5 MG Tab PO SCH ×2 (08:25→20:59)
[2021-09-07] MEDS: Polyethylene Glycol 3350 Powder 17 GM Packet PO SCH (08:25)
[2021-09-07] MEDS: Docusate Sodium 100 MG Cap PO SCH ×2 (08:25→20:59)
[2021-09-07] MEDS: DULoxetine 60 MG Cap PO SCH (08:26)
[2021-09-07] MEDS: Midodrine 5 MG Tab PO SCH ×2 (08:26→20:59)
[2021-09-07] MEDS: Clopidogrel 75 MG Tab PO SCH (08:26)
[2021-09-07] MEDS: Insulin Aspart 100 Units/ML 3 ML Pen SUBCUT SCH ×6 (08:27→17:15)
[2021-09-07] MEDS: cefTRIAXone 1 GM in Sodium Chloride 0.9% 50 ML IV SCH (14:33)
[2021-09-07] MEDS: Famotidine 20 MG Tab PO SCH (20:59)
[2021-09-07] MEDS: Amitriptyline 10 MG Tab PO SCH (21:00)
[2021-09-07] MEDS: Insulin Glargine,Human Rec. Analog 100 Units/ML 3 ML Pen SUBCUT SCH (21:00)
[2021-09-07] MEDS: atorvaSTATin 40 MG Tab PO SCH (21:00)
[2021-09-08 06:03] LABS: CARBON DIOXIDE,CO2 29.5 mmol/L (21.0-32.0); POTASSIUM,K 4.1 mmol/L (3.5-5.1)
[2021-09-08] MEDS: Levothyroxine 50 MCG Tab PO SCH (07:30)
[2021-09-08] MEDS: Insulin Aspart 100 Units/ML 3 ML Pen SUBCUT SCH ×6 (08:14→18:03)
[2021-09-08] MEDS: Docusate Sodium 100 MG Cap PO SCH ×2 (08:18→20:14)
[2021-09-08] MEDS: buPROPion 150 MG Tab.ER PO SCH (08:18)
[2021-09-08] MEDS: Polyethylene Glycol 3350 Powder 17 GM Packet PO SCH (08:20)
[2021-09-08] MEDS: Clopidogrel 75 MG Tab PO SCH (08:20)
[2021-09-08] MEDS: DULoxetine 60 MG Cap PO SCH (08:21)
[2021-09-08] MEDS: Apixaban 5 MG Tab PO SCH ×2 (08:21→20:13)
[2021-09-08] MEDS: Midodrine 5 MG Tab PO SCH ×2 (08:22→20:13)
[2021-09-08] MEDS: Metoprolol Succinate 25 MG Tab.ER PO SCH (08:22)
[2021-09-08] MEDS: Acetaminophen 325 MG Tab PO PRN ×2 (09:42→20:13)
[2021-09-08] MEDS: cefTRIAXone 1 GM in Sodium Chloride 0.9% 50 ML IV SCH (13:35)
[2021-09-08] MEDS: atorvaSTATin 40 MG Tab PO SCH (20:14)
[2021-09-08] MEDS: Amitriptyline 10 MG Tab PO SCH (20:14)
[2021-09-08] MEDS: Famotidine 20 MG Tab PO SCH (20:14)
[2021-09-08] MEDS: Insulin Glargine,Human Rec. Analog 100 Units/ML 3 ML Pen SUBCUT SCH (20:15)
[2021-09-09 06:14] LABS: CARBON DIOXIDE,CO2 28.5 mmol/L (21.0-32.0); POTASSIUM,K 4.2 mmol/L (3.5-5.1)
[2021-09-09] MEDS: Levothyroxine 50 MCG Tab PO SCH (06:45)
[2021-09-09] MEDS: Insulin Aspart 100 Units/ML 3 ML Pen SUBCUT SCH ×6 (09:22→17:29)
[2021-09-09] MEDS: Polyethylene Glycol 3350 Powder 17 GM Packet PO SCH (09:24)
[2021-09-09] MEDS: Apixaban 5 MG Tab PO SCH (09:25)
[2021-09-09] MEDS: Docusate Sodium 100 MG Cap PO SCH (09:25)
[2021-09-09] MEDS: buPROPion 150 MG Tab.ER PO SCH (09:25)
[2021-09-09] MEDS: DULoxetine 60 MG Cap PO SCH (09:26)
[2021-09-09] MEDS: Clopidogrel 75 MG Tab PO SCH (09:26)
[2021-09-09] MEDS: Metoprolol Succinate 25 MG Tab.ER PO SCH (09:26)
[2021-09-09] MEDS: Midodrine 5 MG Tab PO SCH (09:26)
[2021-09-09] MEDS: cefTRIAXone 1 GM in Sodium Chloride 0.9% 50 ML IV SCH (14:16)
[2021-09-09 19:19] VITALS: BP 134/70; PULSE 77
== END 2021-09-09 18:00 | DRG 690 ==
LOC: MW.ED 09:14 → MW.MS 12:10 → OBSVTOIN 08-25 10:47
PROVIDERS: ADMIT Internal Medicine; ATTEND Internal Medicine
DX: N39.0 Urinary tract infection, site not specified (principal); N30.00 Acute cystitis without hematuria; H54.7 Unspecified visual loss; G45.9 Transient cerebral ischemic attack, unspecified; E78.00 Pure hypercholesterolemia, unspecified; D86.89 Sarcoidosis of other sites; Z95.5 Presence of coronary angioplasty implant and graft; G47.30 Sleep apnea, unspecified; R51.9 Headache, unspecified; G89.29 Other chronic pain; I69.398 Other sequelae of cerebral infarction; F32.A Depression, unspecified; F41.9 Anxiety disorder, unspecified; E11.9 Type 2 diabetes mellitus without complications; E03.9 Hypothyroidism, unspecified; Z85.72 Personal history of non-Hodgkin lymphomas; C79.51 Secondary malignant neoplasm of bone; I50.9 Heart failure, unspecified; R29.6 Repeated falls; W19.XXXA Unspecified fall, initial encounter; I25.10 Atherosclerotic heart disease of native coronary artery without angina pectoris; Z91.048 Other nonmedicinal substance allergy status; Z79.01 Long term (current) use of anticoagulants; Z79.4 Long term (current) use of insulin; Z79.890 Hormone replacement therapy; I10 Essential (primary) hypertension; I25.2 Old myocardial infarction; Z93.6 Other artificial openings of urinary tract status; Z86.718 Personal history of other venous thrombosis and embolism; R00.0 Tachycardia, unspecified; G93.9 Disorder of brain, unspecified; G95.9 Disease of spinal cord, unspecified; Z96.0 Presence of urogenital implants; Z99.3 Dependence on wheelchair; Z79.02 Long term (current) use of antithrombotics/antiplatelets; Z79.899 Other long term (current) drug therapy; Z79.84 Long term (current) use of oral hypoglycemic drugs; Z88.0 Allergy status to penicillin; Z88.8 Allergy status to other drugs, medicaments and biological substances; Z79.52 Long term (current) use of systemic steroids; N13.9 Obstructive and reflux uropathy, unspecified; Z20.822 Contact with and (suspected) exposure to COVID-19
CPT/HCPCS: 0240U; 36415; 51702; 70450; 70553; 71045; 72156; 72157; 73620; 74018; 80048; 80053; 81001; 82947; 83605; 83735; 83880; 84100; 84484; 85025; 85027; 87086; 87106; 87186; 93005; 96365; 96366; 96368; 96372; 96376; 97110; 97112; 97162; 97530; 99285; 87088; 87107; 93010; 99218; 99224; 99231; 99232; 99233; 99239; 99284; A9270-GY; A9577; G0378; J0696; J1650; J1745; J1815-GY; J2270; J2405; J3475; J3490; J7050; J7120

== ENCOUNTER 2021-11-21 16:58 | Inpatient (IN) | payer MEDICARE, OTHER ==
[2021-11-21] MEDS ORDERED: Sodium Chloride 0.9% 2.5 ML Syringe FLUSH PRN (17:27)
[2021-11-21] MEDS ORDERED: Sodium Chloride 0.9% 10 ML Syringe FLUSH PRN (17:27)
[2021-11-21 17:54] LABS: POTASSIUM,K 3.8 mmol/L (3.5-5.1)
[2021-11-21] MEDS ORDERED: cefTRIAXone 1 GM in Sodium Chloride 0.9% 50 ML IV ONE (22:12)
[2021-11-22] MEDS ORDERED: ALPRAZolam 0.25 MG Tab PO PRN (00:48)
[2021-11-22] MEDS ORDERED: Bisacodyl 10 MG Supp RECTAL PRN (00:48)
[2021-11-22] MEDS ORDERED: DICLOFENAC SODIUM TOP PRN (00:48)
[2021-11-22] MEDS ORDERED: 50% Dextrose in Water 50 ML Syringe IVPUSH PRN (00:55)
[2021-11-22] MEDS ORDERED: Glucagon,Human Recombinant 1 MG Vial IM PRN (00:55)
[2021-11-22] MEDS: Amitriptyline 10 MG Tab PO SCH ×2 (01:14→20:17)
[2021-11-22] MEDS: Insulin Glargine,Hum.Rec.Anlog 100 UNIT/ML 3 ML Pen SUBCUT SCH ×2 (01:16→20:17)
[2021-11-22] MEDS: Acetaminophen 325 MG Tab PO PRN ×2 (01:16→16:27)
[2021-11-22 06:28] LABS: CARBON DIOXIDE,CO2 30.3 mmol/L (21.0-32.0); POTASSIUM,K 3.4 mmol/L (3.5-5.1)
[2021-11-22] MEDS: Insulin Aspart 100 Units/ML 3 ML Pen SUBCUT SCH ×3 (07:11→16:47)
[2021-11-22] MEDS: Docusate Sodium 100 MG Cap PO SCH ×2 (08:24→20:15)
[2021-11-22] MEDS: DULoxetine 60 MG Cap PO SCH (08:24)
[2021-11-22] MEDS: Metoprolol Succinate 25 MG Tab.ER PO SCH ×2 (08:24→20:15)
[2021-11-22] MEDS: buPROPion 150 MG Tab.ER PO SCH (08:24)
[2021-11-22] MEDS: Clopidogrel 75 MG Tab PO SCH (08:25)
[2021-11-22] MEDS: Apixaban 5 MG Tab PO SCH ×2 (08:25→20:15)
[2021-11-22] MEDS: Levothyroxine 50 MCG Tab PO SCH (08:35)
[2021-11-22] MEDS ORDERED: FENOFIBRATE NANOCRYSTALLIZED 48 MG PO SCH (09:00)
[2021-11-22] MEDS: Mycophenolate Mofetil 250 MG Cap PO SCH ×2 (11:58→20:17)
[2021-11-22] MEDS: FENOFIBRATE NANOCRYSTALLIZED 48 MG PO SCH (11:58)
[2021-11-22] MEDS: Melatonin 3 MG Tab PO SCH (20:15)
[2021-11-22] MEDS: Famotidine 20 MG Tab PO SCH (20:15)
[2021-11-22] MEDS: atorvaSTATin 40 MG Tab PO SCH (20:15)
[2021-11-22] MEDS: cefTRIAXone 1 GM in Sodium Chloride 0.9% 50 ML IV SCH (22:29)
[2021-11-23] MEDS: Levothyroxine 50 MCG Tab PO SCH (06:37)
[2021-11-23 06:56] LABS: POTASSIUM,K 3.8 mmol/L (3.5-5.1)
[2021-11-23] MEDS: Insulin Aspart 100 Units/ML 3 ML Pen SUBCUT SCH ×3 (07:34→16:21)
[2021-11-23] MEDS: Clopidogrel 75 MG Tab PO SCH (07:59)
[2021-11-23] MEDS: Apixaban 5 MG Tab PO SCH ×2 (07:59→21:04)
[2021-11-23] MEDS: Docusate Sodium 100 MG Cap PO SCH ×2 (07:59→21:01)
[2021-11-23] MEDS: buPROPion 150 MG Tab.ER PO SCH (08:00)
[2021-11-23] MEDS: Metoprolol Succinate 25 MG Tab.ER PO SCH ×2 (08:00→21:03)
[2021-11-23] MEDS: DULoxetine 60 MG Cap PO SCH (08:00)
[2021-11-23] MEDS: FENOFIBRATE NANOCRYSTALLIZED 48 MG PO SCH (08:01)
[2021-11-23] MEDS: Mycophenolate Mofetil 250 MG Cap PO SCH ×2 (09:35→21:00)
[2021-11-23] MEDS: atorvaSTATin 40 MG Tab PO SCH (21:01)
[2021-11-23] MEDS: Famotidine 20 MG Tab PO SCH (21:01)
[2021-11-23] MEDS: Melatonin 3 MG Tab PO SCH (21:03)
[2021-11-23] MEDS: Amitriptyline 10 MG Tab PO SCH (21:05)
[2021-11-23] MEDS: Insulin Glargine,Hum.Rec.Anlog 100 UNIT/ML 3 ML Pen SUBCUT SCH (21:09)
[2021-11-23] MEDS: Acetaminophen 325 MG Tab PO PRN (22:55)
[2021-11-23] MEDS: cefTRIAXone 1 GM in Sodium Chloride 0.9% 50 ML IV SCH (22:57)
[2021-11-24 05:55] LABS: CARBON DIOXIDE,CO2 27.1 mmol/L (21.0-32.0); POTASSIUM,K 3.7 mmol/L (3.5-5.1)
[2021-11-24] MEDS: Levothyroxine 50 MCG Tab PO SCH (06:44)
[2021-11-24] MEDS: Insulin Aspart 100 Units/ML 3 ML Pen SUBCUT SCH ×3 (07:03→16:41)
[2021-11-24] MEDS: Mycophenolate Mofetil 250 MG Cap PO SCH ×2 (08:12→21:18)
[2021-11-24] MEDS: buPROPion 150 MG Tab.ER PO SCH (08:12)
[2021-11-24] MEDS: DULoxetine 60 MG Cap PO SCH (08:12)
[2021-11-24] MEDS: Apixaban 5 MG Tab PO SCH ×2 (08:12→21:20)
[2021-11-24] MEDS: Clopidogrel 75 MG Tab PO SCH (08:12)
[2021-11-24] MEDS: Docusate Sodium 100 MG Cap PO SCH ×2 (08:12→21:20)
[2021-11-24] MEDS: Metoprolol Succinate 25 MG Tab.ER PO SCH ×2 (08:15→21:21)
[2021-11-24] MEDS: Acetaminophen 325 MG Tab PO PRN ×2 (08:15→18:21)
[2021-11-24] MEDS: FENOFIBRATE NANOCRYSTALLIZED 48 MG PO SCH (08:17)
[2021-11-24] MEDS: atorvaSTATin 40 MG Tab PO SCH (21:17)
[2021-11-24] MEDS: Amitriptyline 10 MG Tab PO SCH (21:19)
[2021-11-24] MEDS: Melatonin 3 MG Tab PO SCH (21:19)
[2021-11-24] MEDS: Famotidine 20 MG Tab PO SCH (21:20)
[2021-11-24] MEDS: Insulin Glargine,Hum.Rec.Anlog 100 UNIT/ML 3 ML Pen SUBCUT SCH (21:22)
[2021-11-24] MEDS: cefTRIAXone 1 GM in Sodium Chloride 0.9% 50 ML IV SCH (22:53)
[2021-11-25] MEDS: Levothyroxine 50 MCG Tab PO SCH (06:36)
[2021-11-25] MEDS: Insulin Aspart 100 Units/ML 3 ML Pen SUBCUT SCH ×3 (06:40→17:43)
[2021-11-25 07:48] LABS: CARBON DIOXIDE,CO2 28.2 mmol/L (21.0-32.0); POTASSIUM,K 3.8 mmol/L (3.5-5.1)
[2021-11-25] MEDS: Clopidogrel 75 MG Tab PO SCH (08:12)
[2021-11-25] MEDS: Metoprolol Succinate 25 MG Tab.ER PO SCH ×2 (08:12→21:07)
[2021-11-25] MEDS: Docusate Sodium 100 MG Cap PO SCH ×2 (08:12→21:06)
[2021-11-25] MEDS: buPROPion 150 MG Tab.ER PO SCH (08:12)
[2021-11-25] MEDS: Apixaban 5 MG Tab PO SCH ×2 (08:12→21:07)
[2021-11-25] MEDS: DULoxetine 60 MG Cap PO SCH (08:12)
[2021-11-25] MEDS: Mycophenolate Mofetil 250 MG Cap PO SCH ×2 (08:13→21:06)
[2021-11-25] MEDS: FENOFIBRATE NANOCRYSTALLIZED 48 MG PO SCH (08:13)
[2021-11-25] MEDS: Acetaminophen 325 MG Tab PO PRN ×2 (09:03→23:18)
[2021-11-25] MEDS: Amitriptyline 10 MG Tab PO SCH (21:06)
[2021-11-25] MEDS: Famotidine 20 MG Tab PO SCH (21:07)
[2021-11-25] MEDS: Melatonin 3 MG Tab PO SCH (21:07)
[2021-11-25] MEDS: atorvaSTATin 40 MG Tab PO SCH (21:07)
[2021-11-25] MEDS: Insulin Glargine,Hum.Rec.Anlog 100 UNIT/ML 3 ML Pen SUBCUT SCH (21:08)
[2021-11-25] MEDS: cefTRIAXone 1 GM in Sodium Chloride 0.9% 50 ML IV SCH (23:18)
[2021-11-26 06:12] LABS: CARBON DIOXIDE,CO2 29.8 mmol/L (21.0-32.0); POTASSIUM,K 3.6 mmol/L (3.5-5.1)
[2021-11-26] MEDS: Insulin Aspart 100 Units/ML 3 ML Pen SUBCUT SCH ×3 (07:41→17:55)
[2021-11-26] MEDS: Levothyroxine 50 MCG Tab PO SCH (07:47)
[2021-11-26] MEDS: Mycophenolate Mofetil 250 MG Cap PO SCH ×2 (09:16→20:51)
[2021-11-26] MEDS: DULoxetine 60 MG Cap PO SCH (09:18)
[2021-11-26] MEDS: Clopidogrel 75 MG Tab PO SCH (09:18)
[2021-11-26] MEDS: Metoprolol Succinate 25 MG Tab.ER PO SCH ×2 (09:18→20:50)
[2021-11-26] MEDS: Apixaban 5 MG Tab PO SCH ×2 (09:18→20:47)
[2021-11-26] MEDS: Docusate Sodium 100 MG Cap PO SCH ×2 (09:18→20:50)
[2021-11-26] MEDS: buPROPion 150 MG Tab.ER PO SCH (09:19)
[2021-11-26] MEDS: FENOFIBRATE NANOCRYSTALLIZED 48 MG PO SCH (09:24)
[2021-11-26] MEDS: Acetaminophen 325 MG Tab PO PRN ×2 (13:26→20:57)
[2021-11-26] MEDS: Famotidine 20 MG Tab PO SCH (20:47)
[2021-11-26] MEDS: Amitriptyline 10 MG Tab PO SCH (20:48)
[2021-11-26] MEDS: atorvaSTATin 40 MG Tab PO SCH (20:48)
[2021-11-26] MEDS: Melatonin 3 MG Tab PO SCH (20:49)
[2021-11-26] MEDS: Insulin Glargine,Hum.Rec.Anlog 100 UNIT/ML 3 ML Pen SUBCUT SCH (20:53)
[2021-11-26] MEDS: cefTRIAXone 1 GM in Sodium Chloride 0.9% 50 ML IV SCH (22:48)
[2021-11-27] MEDS: Insulin Aspart 100 Units/ML 3 ML Pen SUBCUT SCH ×3 (06:30→17:10)
[2021-11-27] MEDS: Levothyroxine 50 MCG Tab PO SCH (06:31)
[2021-11-27 07:43] LABS: CARBON DIOXIDE,CO2 25.8 mmol/L (21.0-32.0); POTASSIUM,K 3.7 mmol/L (3.5-5.1)
[2021-11-27] MEDS: Metoprolol Succinate 25 MG Tab.ER PO SCH ×2 (08:41→20:11)
[2021-11-27] MEDS: Torsemide 20 MG Tab PO SCH (08:42)
[2021-11-27] MEDS: DULoxetine 60 MG Cap PO SCH (08:42)
[2021-11-27] MEDS: Clopidogrel 75 MG Tab PO SCH (08:42)
[2021-11-27] MEDS: buPROPion 150 MG Tab.ER PO SCH (08:43)
[2021-11-27] MEDS: Apixaban 5 MG Tab PO SCH ×2 (08:43→20:09)
[2021-11-27] MEDS: Docusate Sodium 100 MG Cap PO SCH ×2 (08:44→20:08)
[2021-11-27] MEDS: Mycophenolate Mofetil 250 MG Cap PO SCH ×2 (08:44→20:06)
[2021-11-27] MEDS: FENOFIBRATE NANOCRYSTALLIZED 48 MG PO SCH (08:46)
[2021-11-27] MEDS: Amitriptyline 10 MG Tab PO SCH (20:04)
[2021-11-27] MEDS: atorvaSTATin 40 MG Tab PO SCH (20:05)
[2021-11-27] MEDS: Melatonin 3 MG Tab PO SCH (20:09)
[2021-11-27] MEDS: Famotidine 20 MG Tab PO SCH (20:10)
[2021-11-27] MEDS: Insulin Glargine,Hum.Rec.Anlog 100 UNIT/ML 3 ML Pen SUBCUT SCH (20:12)
[2021-11-27] MEDS: Acetaminophen 325 MG Tab PO PRN (20:42)
[2021-11-28] MEDS: Levothyroxine 50 MCG Tab PO SCH (06:39)
[2021-11-28] MEDS: Insulin Aspart 100 Units/ML 3 ML Pen SUBCUT SCH ×3 (06:50→17:32)
[2021-11-28] MEDS: Metoprolol Succinate 25 MG Tab.ER PO SCH ×2 (09:38→20:08)
[2021-11-28] MEDS: DULoxetine 60 MG Cap PO SCH (09:38)
[2021-11-28] MEDS: buPROPion 150 MG Tab.ER PO SCH (09:38)
[2021-11-28] MEDS: Docusate Sodium 100 MG Cap PO SCH ×2 (09:38→20:01)
[2021-11-28] MEDS: Torsemide 20 MG Tab PO SCH (09:38)
[2021-11-28] MEDS: Clopidogrel 75 MG Tab PO SCH (09:39)
[2021-11-28] MEDS: Apixaban 5 MG Tab PO SCH ×2 (09:39→20:02)
[2021-11-28] MEDS: FENOFIBRATE NANOCRYSTALLIZED 48 MG PO SCH (09:42)
[2021-11-28] MEDS: Mycophenolate Mofetil 250 MG Cap PO SCH ×2 (10:12→20:04)
[2021-11-28] MEDS: Amitriptyline 10 MG Tab PO SCH (19:59)
[2021-11-28] MEDS: Acetaminophen 325 MG Tab PO PRN (20:00)
[2021-11-28] MEDS: atorvaSTATin 40 MG Tab PO SCH (20:01)
[2021-11-28] MEDS: Melatonin 3 MG Tab PO SCH (20:03)
[2021-11-28] MEDS: Famotidine 20 MG Tab PO SCH (20:06)
[2021-11-28] MEDS: Insulin Glargine,Hum.Rec.Anlog 100 UNIT/ML 3 ML Pen SUBCUT SCH (20:08)
[2021-11-29 06:33] LABS: CARBON DIOXIDE,CO2 29.6 mmol/L (21.0-32.0); POTASSIUM,K 3.5 mmol/L (3.5-5.1)
[2021-11-29] MEDS: Levothyroxine 50 MCG Tab PO SCH (06:33)
[2021-11-29] MEDS: Insulin Aspart 100 Units/ML 3 ML Pen SUBCUT SCH ×3 (07:25→16:58)
[2021-11-29] MEDS: Clopidogrel 75 MG Tab PO SCH (08:37)
[2021-11-29] MEDS: Mycophenolate Mofetil 250 MG Cap PO SCH ×2 (08:37→21:09)
[2021-11-29] MEDS: DULoxetine 60 MG Cap PO SCH (08:38)
[2021-11-29] MEDS: FENOFIBRATE NANOCRYSTALLIZED 48 MG PO SCH (08:38)
[2021-11-29] MEDS: buPROPion 150 MG Tab.ER PO SCH (08:38)
[2021-11-29] MEDS: Metoprolol Succinate 25 MG Tab.ER PO SCH ×2 (08:38→21:10)
[2021-11-29] MEDS: Apixaban 5 MG Tab PO SCH ×2 (08:38→21:09)
[2021-11-29] MEDS: Docusate Sodium 100 MG Cap PO SCH ×2 (08:38→21:09)
[2021-11-29] MEDS: Torsemide 20 MG Tab PO SCH (08:38)
[2021-11-29] MEDS: Acetaminophen 325 MG Tab PO PRN ×2 (11:37→21:09)
[2021-11-29] MEDS: Melatonin 3 MG Tab PO SCH (21:09)
[2021-11-29] MEDS: Famotidine 20 MG Tab PO SCH (21:09)
[2021-11-29] MEDS: Amitriptyline 10 MG Tab PO SCH (21:10)
[2021-11-29] MEDS: atorvaSTATin 40 MG Tab PO SCH (21:10)
[2021-11-29] MEDS: Insulin Glargine,Hum.Rec.Anlog 100 UNIT/ML 3 ML Pen SUBCUT SCH (21:18)
[2021-11-30] MEDS: Levothyroxine 50 MCG Tab PO SCH (06:43)
[2021-11-30 07:27] LABS: CARBON DIOXIDE,CO2 28.3 mmol/L (21.0-32.0); POTASSIUM,K 3.5 mmol/L (3.5-5.1)
[2021-11-30] MEDS: Insulin Aspart 100 Units/ML 3 ML Pen SUBCUT SCH ×3 (07:33→16:42)
[2021-11-30] MEDS: Acetaminophen 325 MG Tab PO PRN ×2 (07:45→19:44)
[2021-11-30] MEDS: Apixaban 5 MG Tab PO SCH ×2 (08:41→20:51)
[2021-11-30] MEDS: Mycophenolate Mofetil 250 MG Cap PO SCH ×2 (08:41→20:50)
[2021-11-30] MEDS: Metoprolol Succinate 25 MG Tab.ER PO SCH ×2 (08:41→20:52)
[2021-11-30] MEDS: Docusate Sodium 100 MG Cap PO SCH ×2 (08:41→20:50)
[2021-11-30] MEDS: buPROPion 150 MG Tab.ER PO SCH (08:42)
[2021-11-30] MEDS: FENOFIBRATE NANOCRYSTALLIZED 48 MG PO SCH (08:42)
[2021-11-30] MEDS: DULoxetine 60 MG Cap PO SCH (08:42)
[2021-11-30] MEDS: Clopidogrel 75 MG Tab PO SCH (08:42)
[2021-11-30] MEDS ORDERED: Lactated Ringers 1,000 ML IV ONE (13:35)
[2021-11-30] MEDS: Famotidine 20 MG Tab PO SCH (20:51)
[2021-11-30] MEDS: atorvaSTATin 40 MG Tab PO SCH (20:51)
[2021-11-30] MEDS: Amitriptyline 10 MG Tab PO SCH (20:51)
[2021-11-30] MEDS: Melatonin 3 MG Tab PO SCH (20:51)
[2021-11-30] MEDS: Insulin Glargine,Hum.Rec.Anlog 100 UNIT/ML 3 ML Pen SUBCUT SCH (20:53)
[2021-12-01] MEDS: Levothyroxine 50 MCG Tab PO SCH ×2 (06:22→06:30)
[2021-12-01] MEDS: Apixaban 5 MG Tab PO SCH ×2 (08:14→20:58)
[2021-12-01] MEDS: Metoprolol Succinate 25 MG Tab.ER PO SCH ×2 (08:14→20:57)
[2021-12-01] MEDS: Mycophenolate Mofetil 250 MG Cap PO SCH ×2 (08:14→20:54)
[2021-12-01] MEDS: Docusate Sodium 100 MG Cap PO SCH ×2 (08:18→20:56)
[2021-12-01] MEDS: buPROPion 150 MG Tab.ER PO SCH (08:18)
[2021-12-01] MEDS: Clopidogrel 75 MG Tab PO SCH (08:18)
[2021-12-01] MEDS: Insulin Aspart 100 Units/ML 3 ML Pen SUBCUT SCH ×3 (08:19→17:28)
[2021-12-01] MEDS: DULoxetine 60 MG Cap PO SCH (08:19)
[2021-12-01] MEDS: FENOFIBRATE NANOCRYSTALLIZED 48 MG PO SCH (08:19)
[2021-12-01 09:57] LABS: CARBON DIOXIDE,CO2 27.4 mmol/L (21.0-32.0); POTASSIUM,K 3.7 mmol/L (3.5-5.1)
[2021-12-01] MEDS: Acetaminophen 325 MG Tab PO PRN (19:33)
[2021-12-01] MEDS: Amitriptyline 10 MG Tab PO SCH (20:55)
[2021-12-01] MEDS: Melatonin 3 MG Tab PO SCH (20:56)
[2021-12-01] MEDS: atorvaSTATin 40 MG Tab PO SCH (20:57)
[2021-12-01] MEDS: Famotidine 20 MG Tab PO SCH (20:57)
[2021-12-01] MEDS: Insulin Glargine,Hum.Rec.Anlog 100 UNIT/ML 3 ML Pen SUBCUT SCH (21:17)
[2021-12-01] MEDS ORDERED: oxyCODONE 5 MG Tab PO ONE (23:00)
[2021-12-02] MEDS: Levothyroxine 50 MCG Tab PO SCH (07:09)
[2021-12-02] MEDS: Insulin Aspart 100 Units/ML 3 ML Pen SUBCUT SCH ×3 (08:46→17:15)
[2021-12-02] MEDS: Metoprolol Succinate 25 MG Tab.ER PO SCH ×2 (08:47→21:53)
[2021-12-02] MEDS: DULoxetine 60 MG Cap PO SCH (08:48)
[2021-12-02] MEDS: Clopidogrel 75 MG Tab PO SCH (08:48)
[2021-12-02] MEDS: buPROPion 150 MG Tab.ER PO SCH (08:48)
[2021-12-02] MEDS: Apixaban 5 MG Tab PO SCH ×2 (08:48→21:52)
[2021-12-02] MEDS: Docusate Sodium 100 MG Cap PO SCH ×2 (08:48→21:52)
[2021-12-02] MEDS: Mycophenolate Mofetil 250 MG Cap PO SCH ×2 (08:48→21:52)
[2021-12-02] MEDS: FENOFIBRATE NANOCRYSTALLIZED 48 MG PO SCH (08:52)
[2021-12-02] MEDS: Acetaminophen 325 MG Tab PO PRN (21:52)
[2021-12-02] MEDS: Amitriptyline 10 MG Tab PO SCH (21:52)
[2021-12-02] MEDS: Melatonin 3 MG Tab PO SCH (21:53)
[2021-12-02] MEDS: atorvaSTATin 40 MG Tab PO SCH (21:53)
[2021-12-02] MEDS: Famotidine 20 MG Tab PO SCH (21:53)
[2021-12-02] MEDS: Insulin Glargine,Hum.Rec.Anlog 100 UNIT/ML 3 ML Pen SUBCUT SCH (21:54)
[2021-12-03 06:12] LABS: CARBON DIOXIDE,CO2 28.7 mmol/L (21.0-32.0); POTASSIUM,K 3.3 mmol/L (3.5-5.1)
[2021-12-03] MEDS: Levothyroxine 50 MCG Tab PO SCH (07:36)
[2021-12-03] MEDS: Insulin Aspart 100 Units/ML 3 ML Pen SUBCUT SCH ×3 (07:43→17:11)
[2021-12-03] MEDS: Mycophenolate Mofetil 250 MG Cap PO SCH ×2 (10:19→20:08)
[2021-12-03] MEDS: Apixaban 5 MG Tab PO SCH ×2 (10:20→20:02)
[2021-12-03] MEDS: Clopidogrel 75 MG Tab PO SCH (10:20)
[2021-12-03] MEDS: Docusate Sodium 100 MG Cap PO SCH ×2 (10:20→20:07)
[2021-12-03] MEDS: DULoxetine 60 MG Cap PO SCH (10:21)
[2021-12-03] MEDS: buPROPion 150 MG Tab.ER PO SCH (10:21)
[2021-12-03] MEDS: Metoprolol Succinate 25 MG Tab.ER PO SCH ×2 (10:24→20:03)
[2021-12-03] MEDS: FENOFIBRATE NANOCRYSTALLIZED 48 MG PO SCH (11:40)
[2021-12-03] MEDS: Torsemide 20 MG Tab PO SCH (13:11)
[2021-12-03] MEDS: Famotidine 20 MG Tab PO SCH (20:02)
[2021-12-03] MEDS: Amitriptyline 10 MG Tab PO SCH (20:05)
[2021-12-03] MEDS: atorvaSTATin 40 MG Tab PO SCH (20:06)
[2021-12-03] MEDS: Melatonin 3 MG Tab PO SCH (20:07)
[2021-12-03] MEDS: Insulin Glargine,Hum.Rec.Anlog 100 UNIT/ML 3 ML Pen SUBCUT SCH (20:13)
[2021-12-03] MEDS: Acetaminophen 325 MG Tab PO PRN (21:39)
[2021-12-04] MEDS: Insulin Aspart 100 Units/ML 3 ML Pen SUBCUT SCH ×3 (06:47→17:47)
[2021-12-04] MEDS: Levothyroxine 50 MCG Tab PO SCH (06:48)
[2021-12-04] MEDS: Docusate Sodium 100 MG Cap PO SCH ×2 (09:24→20:10)
[2021-12-04] MEDS: buPROPion 150 MG Tab.ER PO SCH (09:25)
[2021-12-04] MEDS: Clopidogrel 75 MG Tab PO SCH (09:25)
[2021-12-04] MEDS: DULoxetine 60 MG Cap PO SCH (09:25)
[2021-12-04] MEDS: Mycophenolate Mofetil 250 MG Cap PO SCH ×2 (09:26→20:07)
[2021-12-04] MEDS: Apixaban 5 MG Tab PO SCH ×2 (09:26→20:11)
[2021-12-04] MEDS: FENOFIBRATE NANOCRYSTALLIZED 48 MG PO SCH (09:28)
[2021-12-04] MEDS: Metoprolol Succinate 25 MG Tab.ER PO SCH (09:28)
[2021-12-04] MEDS: Torsemide 20 MG Tab PO SCH (11:45)
[2021-12-04] MEDS: Amitriptyline 10 MG Tab PO SCH (20:11)
[2021-12-04] MEDS: atorvaSTATin 40 MG Tab PO SCH (20:12)
[2021-12-04] MEDS: Melatonin 3 MG Tab PO SCH (20:13)
[2021-12-04] MEDS: Famotidine 20 MG Tab PO SCH (20:13)
[2021-12-04] MEDS: Acetaminophen 325 MG Tab PO PRN (20:14)
[2021-12-04] MEDS: Insulin Glargine,Hum.Rec.Anlog 100 UNIT/ML 3 ML Pen SUBCUT SCH (20:15)
[2021-12-05] MEDS: Levothyroxine 50 MCG Tab PO SCH ×2 (06:24→06:44)
[2021-12-05] MEDS: Insulin Aspart 100 Units/ML 3 ML Pen SUBCUT SCH ×3 (07:13→17:37)
[2021-12-05] MEDS: Mycophenolate Mofetil 250 MG Cap PO SCH ×2 (08:40→20:39)
[2021-12-05] MEDS: Torsemide 20 MG Tab PO SCH (08:41)
[2021-12-05] MEDS: DULoxetine 60 MG Cap PO SCH (08:41)
[2021-12-05] MEDS: Apixaban 5 MG Tab PO SCH ×2 (08:41→20:39)
[2021-12-05] MEDS: Clopidogrel 75 MG Tab PO SCH (08:41)
[2021-12-05] MEDS: buPROPion 150 MG Tab.ER PO SCH (08:41)
[2021-12-05] MEDS: Metoprolol Succinate 25 MG Tab.ER PO SCH (08:41)
[2021-12-05] MEDS: FENOFIBRATE NANOCRYSTALLIZED 48 MG PO SCH (08:42)
[2021-12-05] MEDS: Docusate Sodium 100 MG Cap PO SCH ×2 (08:42→20:39)
[2021-12-05] MEDS: Acetaminophen 325 MG Tab PO PRN ×2 (08:44→20:42)
[2021-12-05] MEDS: Amitriptyline 10 MG Tab PO SCH (20:39)
[2021-12-05] MEDS: Melatonin 3 MG Tab PO SCH (20:39)
[2021-12-05] MEDS: Famotidine 20 MG Tab PO SCH (20:39)
[2021-12-05] MEDS: atorvaSTATin 40 MG Tab PO SCH (20:39)
[2021-12-05] MEDS: Insulin Glargine,Hum.Rec.Anlog 100 UNIT/ML 3 ML Pen SUBCUT SCH (20:40)
[2021-12-06] MEDS: Levothyroxine 50 MCG Tab PO SCH (06:30)
[2021-12-06] MEDS: Insulin Aspart 100 Units/ML 3 ML Pen SUBCUT SCH ×3 (06:30→17:24)
[2021-12-06] MEDS: Mycophenolate Mofetil 250 MG Cap PO SCH ×2 (08:50→20:16)
[2021-12-06] MEDS: buPROPion 150 MG Tab.ER PO SCH (08:51)
[2021-12-06] MEDS: Metoprolol Succinate 25 MG Tab.ER PO SCH (08:51)
[2021-12-06] MEDS: Torsemide 20 MG Tab PO SCH (08:52)
[2021-12-06] MEDS: Apixaban 5 MG Tab PO SCH ×2 (08:52→20:16)
[2021-12-06] MEDS: Clopidogrel 75 MG Tab PO SCH (08:52)
[2021-12-06] MEDS: Docusate Sodium 100 MG Cap PO SCH ×2 (08:52→20:16)
[2021-12-06] MEDS: DULoxetine 60 MG Cap PO SCH (08:52)
[2021-12-06] MEDS: FENOFIBRATE NANOCRYSTALLIZED 48 MG PO SCH (09:26)
[2021-12-06] MEDS ORDERED: Morphine 2 MG/ML SYRINGE IVPUSH ONE (11:43)
[2021-12-06 14:08] LABS: CARBON DIOXIDE,CO2 28.8 mmol/L (21.0-32.0); POTASSIUM,K 4.3 mmol/L (3.5-5.1)
[2021-12-06] MEDS: Amitriptyline 10 MG Tab PO SCH (20:16)
[2021-12-06] MEDS: atorvaSTATin 40 MG Tab PO SCH (20:16)
[2021-12-06] MEDS: Famotidine 20 MG Tab PO SCH (20:16)
[2021-12-06] MEDS: Insulin Glargine,Hum.Rec.Anlog 100 UNIT/ML 3 ML Pen SUBCUT SCH (20:17)
[2021-12-06] MEDS: Melatonin 3 MG Tab PO SCH (20:17)
[2021-12-06] MEDS: Acetaminophen 325 MG Tab PO PRN (20:20)
[2021-12-07] MEDS: oxyCODONE 5 MG Tab PO PRN ×2 (00:34→21:23)
[2021-12-07] MEDS: Acetaminophen 325 MG Tab PO PRN ×2 (02:23→21:24)
[2021-12-07] MEDS: Insulin Aspart 100 Units/ML 3 ML Pen SUBCUT SCH ×3 (06:30→17:19)
[2021-12-07] MEDS: Levothyroxine 50 MCG Tab PO SCH (06:30)
[2021-12-07] MEDS: DULoxetine 60 MG Cap PO SCH (09:05)
[2021-12-07] MEDS: Torsemide 20 MG Tab PO SCH (09:05)
[2021-12-07] MEDS: Apixaban 5 MG Tab PO SCH ×2 (09:06→21:22)
[2021-12-07] MEDS: Clopidogrel 75 MG Tab PO SCH (09:06)
[2021-12-07] MEDS: buPROPion 150 MG Tab.ER PO SCH (09:06)
[2021-12-07] MEDS: Cholecalciferol (Vitamin D3) 25 MCG Tab PO SCH (09:06)
[2021-12-07] MEDS: Mycophenolate Mofetil 250 MG Cap PO SCH ×2 (09:07→21:20)
[2021-12-07] MEDS: Docusate Sodium 100 MG Cap PO SCH ×2 (09:07→21:21)
[2021-12-07] MEDS: FENOFIBRATE NANOCRYSTALLIZED 48 MG PO SCH (09:09)
[2021-12-07] MEDS ORDERED: Morphine 2 MG/ML SYRINGE IVPUSH ONE (10:48)
[2021-12-07] MEDS ORDERED: Lactated Ringers 500 ML IV SCH (11:00)
[2021-12-07] MEDS: Metoprolol Succinate 25 MG Tab.ER PO SCH (16:45)
[2021-12-07] MEDS: Amitriptyline 10 MG Tab PO SCH (21:21)
[2021-12-07] MEDS: atorvaSTATin 40 MG Tab PO SCH (21:22)
[2021-12-07] MEDS: Famotidine 20 MG Tab PO SCH (21:23)
[2021-12-07] MEDS: Melatonin 3 MG Tab PO SCH (21:23)
[2021-12-07] MEDS: Insulin Glargine,Hum.Rec.Anlog 100 UNIT/ML 3 ML Pen SUBCUT SCH (21:26)
[2021-12-08] MEDS: Levothyroxine 50 MCG Tab PO SCH (06:33)
[2021-12-08] MEDS: Insulin Aspart 100 Units/ML 3 ML Pen SUBCUT SCH (06:35)
[2021-12-08] MEDS: DULoxetine 60 MG Cap PO SCH (07:58)
[2021-12-08] MEDS: Clopidogrel 75 MG Tab PO SCH (07:59)
[2021-12-08] MEDS: Docusate Sodium 100 MG Cap PO SCH (07:59)
[2021-12-08] MEDS: Apixaban 5 MG Tab PO SCH (07:59)
[2021-12-08] MEDS: buPROPion 150 MG Tab.ER PO SCH (08:00)
[2021-12-08] MEDS: Cholecalciferol (Vitamin D3) 25 MCG Tab PO SCH (08:00)
[2021-12-08] MEDS: Torsemide 20 MG Tab PO SCH (08:00)
[2021-12-08] MEDS: Metoprolol Succinate 25 MG Tab.ER PO SCH (08:01)
[2021-12-08 08:06] VITALS: BP 111/65; PULSE 97
== END 2021-12-08 09:00 | DRG 683 ==
LOC: MW.ED 16:58 → MW.MS 22:13
PROVIDERS: ADMIT Internal Medicine; ATTEND Internal Medicine
DX: N17.9 Acute kidney failure, unspecified (principal); N39.0 Urinary tract infection, site not specified; N30.01 Acute cystitis with hematuria; I25.119 Atherosclerotic heart disease of native coronary artery with unspecified angina pectoris; D86.89 Sarcoidosis of other sites; I25.10 Atherosclerotic heart disease of native coronary artery without angina pectoris; I50.9 Heart failure, unspecified; E11.9 Type 2 diabetes mellitus without complications; I25.2 Old myocardial infarction; Z66 Do not resuscitate; B96.20 Unspecified Escherichia coli [E. coli] as the cause of diseases classified elsewhere; E78.00 Pure hypercholesterolemia, unspecified; M79.671 Pain in right foot; I11.0 Hypertensive heart disease with heart failure; C85.90 Non-Hodgkin lymphoma, unspecified, unspecified site; C79.51 Secondary malignant neoplasm of bone; G47.30 Sleep apnea, unspecified; F41.9 Anxiety disorder, unspecified; F32.A Depression, unspecified; Z20.822 Contact with and (suspected) exposure to COVID-19; Z79.890 Hormone replacement therapy; E03.9 Hypothyroidism, unspecified; E66.9 Obesity, unspecified; Z85.72 Personal history of non-Hodgkin lymphomas; Z98.49 Cataract extraction status, unspecified eye; Z90.89 Acquired absence of other organs; Z79.01 Long term (current) use of anticoagulants; Z86.718 Personal history of other venous thrombosis and embolism; Z79.4 Long term (current) use of insulin; Z79.02 Long term (current) use of antithrombotics/antiplatelets; Z79.899 Other long term (current) drug therapy; Z88.0 Allergy status to penicillin; Z88.8 Allergy status to other drugs, medicaments and biological substances; Z91.09 Other allergy status, other than to drugs and biological substances; Z95.1 Presence of aortocoronary bypass graft; Z95.5 Presence of coronary angioplasty implant and graft; Z87.01 Personal history of pneumonia (recurrent); Z87.440 Personal history of urinary (tract) infections; Z86.73 Personal history of transient ischemic attack (TIA), and cerebral infarction without residual deficits; Z90.49 Acquired absence of other specified parts of digestive tract; Z90.710 Acquired absence of both cervix and uterus; R29.6 Repeated falls; W19.XXXA Unspecified fall, initial encounter; Z68.34 Body mass index [BMI] 34.0-34.9, adult
CPT/HCPCS: 36415; 51702; 71045; 80053; 81001; 84484 ×2; 85025; 87086; 87088 ×2; 87186 ×2; 93005; 99285; J3490; U0002; 73620-26-RT; 73620-RT; 80048; 82947; 83735; 93010; 97110-GP; 97112-GP; 97116-GP; 97163-GP; 97166-GO; 97530-GP; 97542-GP; A9270-GY; J0696; J1815-GY; J2270; J7120